=== PATIENT | female | born 1980 | race Caucasian/White ===

== ENCOUNTER → 2017-07-10 14:00 | Outpatient (POV) | payer MEDICARE, MEDICAID, SELFPAY | PROVIDERS: Visit Provider Dermatology | DX: Z00.00 Encounter for general adult medical examination without abnormal findings (principal) ==

== ENCOUNTER → 2017-10-09 13:07 | Outpatient (POV) | payer MEDICARE, MEDICAID, SELFPAY | PROVIDERS: Visit Provider Dermatology | DX: Z00.00 Encounter for general adult medical examination without abnormal findings (principal) ==

== ENCOUNTER → 2018-01-08 11:02 | Outpatient (POV) | payer MEDICARE, MEDICAID, SELFPAY | PROVIDERS: Visit Provider Dermatology | DX: Z00.00 Encounter for general adult medical examination without abnormal findings (principal) ==

== ENCOUNTER → 2018-04-14 10:19 | Outpatient (POV) | payer MEDICARE, MEDICAID, SELFPAY | PROVIDERS: Visit Provider Dermatology | DX: Z00.00 Encounter for general adult medical examination without abnormal findings (principal) ==

== ENCOUNTER → 2022-01-15 07:00 | Outpatient (CLI) | payer MEDICARE, MEDICAID, SELFPAY ==
[2022-01-14 18:08] LABS: Basophils % 0.4 % (0.1-2.0); Eosinophils # 0.2 K/mm3 (0.0-0.4); Hemoglobin 13.1 g/dL (12.2-16.2); Lymphocytes # 1.6 K/mm3 (0.7-4.5); Lymphocytes % 17.9 % (10-50); Mean Corpuscular Hemoglobin 25.8 pg (27.0-31.2); Mean Corpuscular Volume 80.6 fl (81-99); Mean Platelet Volume 9.3 fl (7.4-10.4); Monocytes # 0.4 K/mm3 (0.1-1.0); Monocytes % 4.5 % (1.7-9.3); Neutrophils # 6.7 K/mm3 (1.8-7.8); Platelet Count 308 K/mm3 (142-424); Red Blood Count 5.09 M/mm3 (4.20-5.40); Red Cell Distribution Width 14.3 % (11.5-17.5)
[2022-01-14 18:20] LABS: Alanine Aminotransferase 18 U/L (12-78); Albumin Level 3.4 g/dl (3.5-5.0); Albumin/Globulin Ratio 1.3 (1.1-1.8); Alkaline Phosphatase 122 U/L (38-126); Anion Gap 11.7 mEq/L (5-15); Aspartate Amino Transferase 21 U/L (14-36); Bilirubin,Total 0.8 mg/dl (0.2-1.3); Blood Urea Nitrogen 10 mg/dl (7-17); Calcium 8.4 mg/dl (8.4-10.2); Carbon Dioxide 28 mmol/L (22.0-30.0); Chloride 103 mmol/L (98-107); Chol/HDL Ratio 3.4 (1-3.5); Cholesterol 152 mg/dl (140-200); Estimated Glomerular Filt Rate 79 ml/min (>60); GFR (African American) 96 ML/MIN (>60); Globulin 2.7 g/dL (1.3-3.2); Glucose 138 mg/dl (74-100); HDL Cholesterol 45 mg/dl (40-60); Potassium 4.7 mmoL/L (3.5-5.1); Sodium 138 mmol/L (136-145); Total Protein,Serum 6.1 g/dl (6.3-8.2); Triglycerides 101 mg/dl (30-150); VLDL Cholesterol 20 mg/dL (0-40)
[2022-01-14 18:31] LABS: Direct LDL Cholesterol 84.97 mg/dL (100-129)
[2022-01-14 18:51] LABS: Thyroid Stimulating Hormone 2.71 uIU/mL (0.465-4.68)
[2022-01-14 20:50] LABS: Iron 38 ug/dL (37-170)
== END ==
PROVIDERS: PCP Family Medicine; Visit Provider Family Medicine
DX: E03.9 Hypothyroidism, unspecified (principal); E11.9 Type 2 diabetes mellitus without complications; E61.1 Iron deficiency; E78.5 Hyperlipidemia, unspecified; Z79.84 Long term (current) use of oral hypoglycemic drugs
CPT/HCPCS: 80053; 80061; 83036; 83540; 84443; 85025

== ENCOUNTER → 2022-04-08 13:51 | Outpatient (CLI) | payer MEDICARE, MEDICAID, SELFPAY ==
[2022-04-08 13:12] LABS: INR 0.95 (0.9-1.1); Prothrombin Time 10.3 seconds (10.1-12.5)
== END ==
PROVIDERS: PCP Family Medicine; Visit Provider Family Medicine
DX: Z86.711 Personal history of pulmonary embolism (principal); Z51.81 Encounter for therapeutic drug level monitoring; Z79.01 Long term (current) use of anticoagulants
CPT/HCPCS: 85610

== ENCOUNTER → 2022-10-01 16:40 | Outpatient (CLI) | payer MEDICARE, MEDICAID, SELFPAY ==
[2022-10-01 19:46] LABS: Chloride 101 mmol/L (98-107); Potassium 4.6 mmoL/L (3.5-5.1); Sodium 135 mmol/L (136-145)
[2022-10-01 19:49] LABS: Alanine Aminotransferase 18 U/L (12-78); Albumin Level 3.7 g/dl (3.5-5.0); Albumin/Globulin Ratio 1.4 (1.1-1.8); Alkaline Phosphatase 131 U/L (38-126); Anion Gap 11.6 mEq/L (5-15); Aspartate Amino Transferase 20 U/L (14-36); Bilirubin,Total 1.1 mg/dl (0.2-1.3); Blood Urea Nitrogen 14 mg/dl (7-17); Calcium 8.1 mg/dl (8.4-10.2); Carbon Dioxide 27 mmol/L (22.0-30.0); Estimated Glomerular Filt Rate 61 ml/min (>60); GFR (African American) 74 ML/MIN (>60); Globulin 2.7 g/dL (1.3-3.2); Glucose 119 mg/dl (74-100); Total Protein,Serum 6.4 g/dl (6.3-8.2)
== END ==
PROVIDERS: PCP Family Medicine; Visit Provider Family Medicine
DX: E11.9 Type 2 diabetes mellitus without complications (principal); Z79.84 Long term (current) use of oral hypoglycemic drugs
CPT/HCPCS: 80053

== ENCOUNTER 2023-08-15 22:00 | Outpatient (CLI) | payer MEDICARE, MEDICAID, SELFPAY ==
[2023-08-15 20:41] LABS: Amphetamine/Metha Screen,Urine Negative ng/ml (<1000)
[2023-08-15 20:42] LABS: Barbiturates Screen,Urine Negative ng/ml (<200)
[2023-08-15 20:43] LABS: Benzodiazepines Screen,Urine Negative ng/ml (<200)
[2023-08-15 20:44] LABS: Cocaine Screen,Urine Negative ng/ml (<300)
[2023-08-15 20:45] LABS: Methadone Screen,Urine Negative ng/ml (<300); Opiate Screen,Urine Positive ng/ml (<300)
[2023-08-15 20:50] LABS: Cannabinoid Screen,Urine Negative ng/ml (<50)
[2023-08-15 22:12] LABS: Phencyclidine Screen,Urine Negative ng/ml (<25)
== END 2023-08-15 23:59 ==
LOC: LAB.DROPOF 22:00
PROVIDERS: PCP Family Medicine; Visit Provider Family Medicine
DX: Z79.899 Other long term (current) drug therapy (principal); R30.0 Dysuria; B96.1 Klebsiella pneumoniae [K. pneumoniae] as the cause of diseases classified elsewhere
CPT/HCPCS: 80307; 87086

== ENCOUNTER 2024-11-19 15:02 | Outpatient (CLI) | payer MEDICARE, MEDICAID, SELFPAY ==
[2024-11-19 18:23] LABS: Basophils % 0.5 % (0.1-2.0); Eosinophils # 0.2 Kmm3 (0.0-0.4); Eosinophils % 2.3 % (0.1-12.0); Hematocrit 33.7 % (37.0-47.0); Hemoglobin 9.8 g/dL (12.2-16.2); Immature Granulocytes # 0.04 10^3uL; Immature Granulocytes % 0.5 %; Lymphocytes # 0.8 K/mm3 (0.7-4.5); Lymphocytes % 9.9 % (10-50); Mean Corpuscular HGB Conc 29.1 g/dL (31.8-35.4); Mean Corpuscular Hemoglobin 21.4 pg (27.0-31.2); Mean Corpuscular Volume 73.4 fl (81-99); Mean Platelet Volume 10.8 fl (7.4-10.4); Monocytes # 0.3 K/mm3 (0.1-1.0); Monocytes % 4.1 % (1.7-9.3); Neutrophils # 6.5 K/mm3 (1.8-7.8); Neutrophils % 82.7 % (37.0-80.0); Nucleated Red Blood Cells # 0 10^3/uL; Nucleated Red Blood Cells % 0 %; Platelet Count 311 K/mm3 (142-424); Red Blood Count 4.59 M/mm3 (4.20-5.40); Red Cell Distribution Width 19.8 % (11.5-17.5); Red Cell Distribution Width-SD 51.5 fL; White Blood Count 7.8 K/mm3 (4.8-10.8)
[2024-11-19 18:27] LABS: INR 1.66 (0.9-1.1); Prothrombin Time 17.7 seconds (10.1-12.5)
[2024-11-19 19:11] LABS: Alanine Aminotransferase 16 U/L (12-78); Albumin Level 3.3 g/dl (3.5-5.0); Albumin/Globulin Ratio 1.1 (1.1-1.8); Alkaline Phosphatase 159 U/L (38-126); Anion Gap 7.9 mEq/L (5-15); Aspartate Amino Transferase 18 U/L (14-36); Bilirubin,Total 0.7 mg/dl (0.2-1.3); Blood Urea Nitrogen 14 mg/dl (7-17); Calcium 7.8 mg/dl (8.4-10.2); Carbon Dioxide 28 mmol/L (22.0-30.0); Chloride 102 mmol/L (98-107); Chol/HDL Ratio 2.8 (1-3.5); Cholesterol 135 mg/dl (140-200); Estimated Glomerular Filt Rate 61 ml/min (>60); GFR (African American) 73 ML/MIN (>60); Glucose 193 mg/dl (74-100); HDL Cholesterol 49 mg/dl (40-60); Potassium 4.9 mmoL/L (3.5-5.1); Sodium 133 mmol/L (136-145); Total Protein,Serum 6.3 g/dl (6.3-8.2); Triglycerides 101 mg/dl (30-150); VLDL Cholesterol 20 mg/dL (0-40)
[2024-11-19 19:22] LABS: Direct LDL Cholesterol 66.93 mg/dL (100-129)
[2024-11-19 19:42] LABS: Thyroid Stimulating Hormone 2.68 uIU/mL (0.465-4.68)
== END 2024-11-19 23:59 | disposition home or self-care (01) ==
LOC: LAB.DROPOF 11-22 15:05
PROVIDERS: PCP Family Medicine; Visit Provider Family Medicine
DX: E03.9 Hypothyroidism, unspecified (principal); E66.01 Morbid (severe) obesity due to excess calories; D68.51 Activated protein C resistance; G25.81 Restless legs syndrome; Z68.45 Body mass index [BMI] 70 or greater, adult
CPT/HCPCS: 80053; 80061; 84443; 85025; 85610

== ENCOUNTER 2025-03-16 10:10 | Outpatient (CLI) | payer MEDICARE, MEDICAID, SELFPAY ==
--- OUTSIDE RECORDS SUMMARY | 2025-01-13 07:02 | XMS_ITS | Encounter Summary ---
Author Organization [place] [address] Care Team Providers Care [employer] Coater Name Role Phone Tali Carmona MD Unavailable [phone] Miguel Angel Ohara MD Primary Care Provider [phone] Reason for Visit * Reason Comments Shortness of Breath Short of breath, fee ls like she can't take a deep breath. Started at about 1am. Hx blood clots. 99% RA * Auth/Cert/Inpt Specialty Diagnoses / Procedures Referred By Contac t Referred To Contact Diagnoses Pneumonia of right lower lobe due to infectious organism Referral ID Status Reason Start Date Expiration Date Visits Re quested Visits Authorized [id number] 1 1 Encounter Details Date Type Department Care Team (Latest Contact Info) Description 01/13/2025 7:02 AM EDT - 01/20/2025 4:00 PM EDT Hospital Encounter [facility] [address] [address] [place] [address] Olvin Yarbrough MD [address] [place] [address] Harriet Godinez MD [address] [place] [address] Pneumonia of right lower lobe due to infectious organism (Primary Dx); Abdominal wall cellulitis; Shortness of breath; Elevated troponin Discharge Disposition: Rehab Facility Social History Tobacco Use Types Packs/Day Years Used Date Smoking Tobacco: Never Smokeless Tobacco: Never Alcohol Use Standard Drinks/Week Comments Never 0 (1 standard drink = 0.6 oz pur e alcohol) [facility] Utilities Answer Date Recorded In the past 12 months has th e electric, gas, oil, or water company threatened to shut off services in your home? No 01/14/2025 AUDIT-C Answer Date Recorded Q1: How often do you have a drink containing alc ohol? Never 12/05/2020 Average Number of Drinks Not on file 021 Frequency of Binge Drinking Not on file 07/2020 Overall Financial Resource Strain (CARDIA) Answe r Date Recorded How hard is it for you to pa y for the very basics like food, housing, medical care, and heating? Somewhat hard 01/14/2025 PHQ-2 Answer Date Recorded PHQ-2 Total Score 2 01/14/2025 [facility] - Occupational Stress Questionnaire Answer Date Recorded Do you feel stress - tense, restless, nervous, or anxious, or unable to sleep at night because your mind is troubled all the time - these days? Only a little 01/14/2025 Exercise Vital Sign Answer Date Recorde d On average, how many days pe r week do you engage in moderate to strenuous exercise (like a brisk walk)? 0 days 01/14/2025 On average, how many minutes do you engage in exercise at this level? 0 min 01/14/2025 Hunger Vital Sign Answer Date Recorded Within the past 12 months, y ou worried that your food would run out before you got the money to buy more. Sometimes true Within the past 12 months, t he food you bought just didn't last and you didn't have money to get more. Never true 05/2025 [facility] IP Transportation Answer D ate Recorded In the past 12 months, has l ack of reliable transportation kept you from medical appointments, meetings, work or from getting things needed for daily living? No 01/14/2025 Comments No Sex and Gender Information Value Date Recorded Sex Assigned at Not on file Legal Sex Female 6:56 AM EDT Gender Identity Not on file Sexual Orientation Not on file documented as of this encounter Last Filed Vital Signs Vital Sign Reading Time Taken Comments Blood Pressure 143/70 01/20/2025 8:43 AM EDT Pulse 71 01/20/2025 8:43 AM EDT Temperature 36.7 C (98.1 F) 01/20/2025 8:43 AM EDT Respiratory Rate 16 01/20/2025 8:43 AM EDT Oxygen Saturation 96% 01/20/2025 8:43 AM EDT Inhaled Oxygen Concentration - - Weight 231.8 kg (511 lb) 01/13/2025 7:03 AM EDT Height 167.6 cm (5' 6 ) 01/13/2025 7:03 AM EDT Body Mass Index 82.48 01/13/2025 7:03 AM EDT documented in this encounter Functional Status * Alcohol Screening Score Answer Date of Assessment Author 0 01/13/2025 3:00 PM EDT Lesly Ovalle RN * Drug Screening Score Answer Date of Assessment Author 0 01/13/2025 3:00 PM EDT Lesly Ovalle RN * Question Answer Date of Assessment Author How often do you have a drin k containing alcohol? 0 01/13/2025 3:00 PM EDT Jimmie Chambers RN How many drinks containing alcohol do you have on a typical day when you are drinking? 0 01/13/2025 3:00 PM EDT Jimmie Chambers RN How often do you have six or more drinks on one occasion? 0 01/13/2025 3:00 PM EDT Lesly Anand RN AUDIT-C to Determine Rows 4-10 0 01/13/2025 3:00 PM EDT Lesly Chambers RN * Is the person deaf or does he/she have serious difficulty hearing? Answer Date of Assessment Author No 01/06/2025 12:07 PM EDT Elysia Stacy RN * Is the person blind or does he/she have serious difficulty seeing even when wearing glasses? Answer Date of Assessment Author No 01/06/2025 12:07 PM EDT Elysia Stacy RN * Does this person have serious difficulty walking or climbing stairs? Answer Date of Assessment Author Yes 01/06/2025 12:07 PM EDT Elysia Stacy RN * Does this person have difficulty dressing or bathing? Answer Date of Assessment Author Yes 01/06/2025 12:07 PM Elysia Nelson RN * Because of a physical, mental or emotional condition, does this person have difficulty doing errands alone such as visiting a doctor's office or shopping? Answer Date of Assessment Author Yes 01/06/2025 12:07 PM Elysia Nelson RN * Question Answer Date of Assessment Author Little interest or pleasure in doing things 1 01/14/2025 3:17 PM EDT Virginia Jackson, W Feeling down, depressed, or hopeless 1 01/04 3:17 PM EDT Virginia Jackson, ACID LEVELER PHQ-2 Total Score 2 01/14/2025 3:17 PM EDT Virginia Jackson, ACID LEVELER * PHQ-9 Total Score Answer Date of Assessment Author 2 01/14/2025 3:17 PM EDT Criss Jackson, ACID LEVELER * PHQ-2 Total Score Answer Date of Assessment Author 2 01/14/2025 3:17 PM EDT Criss Jackson, ACID LEVELER * Suicide Severity Rating Answer Date of Assessment Author No Risk 01/13/2025 7:04 AM Verna Lu RN * [place] Suicide Severity Rating Scale (Q shift for moderate and high) Question Answer Date of Assessment Author 1. In the past month, have you wished you were or wished you could go to sleep and not wake up? 0 01/13/2025 7:04 AM Verna Helms RN 2. In the past month, have you actually had any thoughts of killing yourself? (If no, skip to question 6) 0 01/13/2025 7:04 AM Deborah Helms RN 6. Have you ever done anything, started to do anything, or prepared to do anything to end your life? 0 01/13/2025 7:04 AM Verna Reaves RN documented as of this encounter Mental Status * Because of a physical, mental or emotional condition, does this person have serious difficulty concentrating, remembering or making decisions? Answer Entry Date Author No 01/06/2025 12:07 PM Elysia Nelson RN documented in this encounter Discharge Summaries * Harriet Godinez MD - 01/20/2025 4:00 PM EDT [facility] Hospital[facility] Discharge Summary Patient Name: Evangelist Nettles : 1980 Admit Date: 01/13/2025 Discharge Date: 01/20/2025 Admitting Physician: Harriet Godinez MD Discharging Physician: Harriet Godinez MD Reason for Hospitalization: GRAZYNA (acute kidney injury). Likely due to vancomycin toxicity. Creatinine is improving *Pneumonia of right lower lobe due to infectious organism Mood disorder Chronic back pain Cellulitis of abdominal wall. Improving. Patient picks her skin constantly. Factor V Leiden Class 3 severe obesity with body mass index (BMI) greater than or equal to 70 in adult Anemia of chronic disease Type 2 diabetes mellitus, without long-term current use of insulin (HCC) Hypertension Hypothyroidism Brief Hospital Summary: Patient was admitted with right lower lobe pneumonia and cellulitis of the abdominal wall. She was treated with broad-spectrum antibiotics including vancomycin, cefepime and doxycycline. Her pneumonia symptoms did improve. Her cellulitis eventually resolved. Patient developed mild GRAZYNA has resolved on vancomycin. Her vancomycin was eventually changed to doxycycline and Augmentin. Renal function improved with gentle IV hydration. Patient was seen by physical therapy, SNF was recommended. She was reevaluated today was found medically stable for discharge. It is advised that she hold her metformin for 2-3 more days from the day of discharge. Discharge Exam: Vitals: 01/20/25 0843 BP: 143/70 Pulse: 71 Resp: 16 Temp: 98.1 ??F (36.7 ??C) SpO2: 96% Patient not in acute distress. Neck supple, no JVD. Lungs CTA. Heart regular S1, S2 are normal. No murmur. Abd soft, NT, ND, bowel sounds are present. Ext nonpitting edema of the lower extremities. Neuro AAO X3. No focal deficits. Correct Full Discharge Med List: Medication List START taking these medications amoxicillin-clavulanate 875-125 mg Tab Dose: 875 mg Refills: 0 Commonly known as: AUGMENTIN 1 Tablet, Oral, EVERY 12 HOURS SCHEDULED doxycycline hyclate 100 mg Tab Dose: 100 mg Refills: 0 Commonly known as: VIBRA-TABS 100 mg, Oral, EVERY 12 HOURS SCHEDULED CHANGE how you take these medications metFORMIN 500 mg Tab Dose: 500 mg Refills: 0 Start: January 23, 2025 Commonly known as: GLUCOPHAGE 500 mg, Oral, 2 TIMES DAILY WITH MEALS What changed: These instructions start on January 23, 2025. If you are unsure what to do until then, ask your doctor or other care provider. Notes to patient: Start January 23 CONTINUE taking these medications albuterol 90 mcg/actuation Hfaa Dose: 2 Puff Refills: 0 Commonly known as: PROVENTIL HFA;VENTOLIN HFA atorvastatin 40 mg Tab Dose: 40 mg Refills: 0 Commonly known as: LIPITOR famotidine 20 mg Tab Dose: 40 mg Refills: 0 Commonly known as: PEPCID FLUoxetine 20 mg Cap Dose: 60 mg Refills: 0 Commonly known as: PROzac folic acid 1 mg Tab Dose: 1 mg Qty: 30 Tablet Refills: 0 Commonly known as: FOLVITE 1 mg, Oral, DAILY glipiZIDE 5 mg Tab Dose: 5 mg Qty: 30 Tablet Refills: 0 Commonly known as: GLUCOTROL 5 mg, Oral, DAILY WITH MEAL LEVOthyroxine 50 mcg Tab Dose: 75 mcg Refills: 0 Commonly known as: SYNTHROID mirabegron 50 mg Tb24 Dose: 50 mg Refills: 0 Commonly known as: MYRBETRIQ oxyCODONE 15 mg Tr12 Dose: 15 mg Refills: 0 Commonly known as: OxyCONTIN propranoloL 20 mg Tab Dose: 20 mg Refills: 0 Commonly known as: INDERAL QUEtiapine 100 mg Tab Dose: 100 mg Refills: 0 Commonly known as: SEROquel rOPINIRole 2 mg Tab Dose: 2 mg Refills: 0 Commonly known as: REQUIP tiZANidine 4 mg Tab Dose: 8 mg Refills: 0 Commonly known as: ZANAFLEX torsemide 20 mg Tab Dose: 20 mg Refills: 0 Commonly known as: DEMADEX traMADoL 50 mg Tab Dose: 50-100 mg Refills: 0 Commonly known as: ULTRAM warfarin 5 mg Tab Dose: 5-7.5 mg Refills: 0 Commonly known as: COUMADIN STOP taking these medications amLODIPine 5 mg Tab Commonly known as: NORVASC nystatin Crea Commonly known as: MYCOSTATIN Where to Get Your Medications Information about where to get these medications is not yet available Ask your nurse or doctor about these medications amoxicillin-clavulanate 875-125 mg Tab doxycycline hyclate 100 mg Tab metFORMIN 500 mg Tab Condition at Discharge: stable Disposition: Rehab - [facility] Follow[facility]up: [facility] [address] [place] [address] Time spent > 30 min Harriet Godinez MD 01/20/2025 documented in this encounter Discharge Instructions * Discharge Instructions* Christel Arambula RN - 01/20/2025 12:49 PM EDT Patient Education Doxycycline (tom reina) Brand Names: US Acticlate [DSC]; Avidoxy; Doryx; Doryx MPC; Doxy 100; Lymepak [DSC]; Mondoxyne NL; Morgidox [DSC]; Oracea; TargaDOX; Vibramycin [DSC] Brand Names: Frank APO-Doxy; APO-Doxycycline MR; Apprilon; Doxycin; Doxytab; JAMP-Doxycycline; M-Doxycycline; PMS-Doxycycline; BIANKA-Doxycycline; TEVA-Doxycycline What is this drug used for? It is used to treat pimples (acne). It is used to treat or prevent bacterial infections. It is used to prevent malaria. It is used to treat swelling of the tissue around the teeth (periodontitis). It is used with scaling and root planing. It is used to treat rosacea. It may be given to you for other reasons. Talk with the doctor. What do I need to tell my doctor BEFORE I take this drug? If you are allergic to this drug; any part of this drug; or any other drugs, foods, or substances. Tell your doctor about the allergy and what signs you had. If you are taking any of these drugs: Acitretin, isotretinoin, or a penicillin. If you are breast-feeding or plan to breast-feed. You may need to avoid breast-feeding. This is not a list of all drugs or health problems that interact with this drug. Tell your doctor and pharmacist about all of your drugs (prescription or OTC, natural products, vitamins) and health problems. You must check to make sure that it is safe for you to take this drug with all of your drugs and health problems. Do not start, stop, or change the dose of any drug withoutchecking with your doctor. What are some things I need to know or do while I take this drug? Tell all of your health care providers that you take this drug. This includes your doctors, nurses,pharmacists, and dentists. Have your blood work checked if you are on this drug for a long time. Talk with your doctor. This drug may affect certain lab tests. Tell all of your health care providers and lab workers thatyou take this drug. Do not use longer than you have been told. A second infection may happen. If you are allergic to sulfites, talk with your doctor. Some products have sulfites. This drug may make you sunburn more easily. Use care if you will be in the sun. Tell your doctor ifyou sunburn easily while taking this drug. control pills and other hormone-based control may not work as well to prevent . Use some other kind of control also like a condom when taking this drug. This drug may change tooth color to yellow-villafana brown if taken by children younger than 8 years old, or in the unborn baby if taken during some parts of . If this change of tooth color happens, it will not go away. Other tooth problems have also happened. Bone growth may also be affected in these people taking this drug. If you have questions, talk with the doctor. Most of the time, this drug is not for use in children younger than 8 years old. However, there maybe times when these children may need to take this drug. Talk with the doctor. Change in tooth color has also happened in adults. This has gone back to normal after this drug wasstopped and teeth cleaning at a dentist's office. Talk with the doctor. This drug may cause harm to the unborn baby if you take it while you are . If you are or you get while taking this drug, call your doctor right away. What are some side effects that I need to call my doctor about right away? WARNING/CAUTION: Even though it may be rare, some people may have very bad and sometimes deadly side effects when taking a drug. Tell your doctor or get medical help right away if you have any of thefollowing signs or symptoms that may be related to a very bad side effect: Signs of an allergic reaction, like rash; hives; itching; red, swollen, blistered, or peeling skin with or without fever; wheezing; tightness in the chest or throat; trouble breathing, swallowing, ortalking; unusual hoarseness; or swelling of the mouth, face, lips, tongue, or throat. Signs of liver problems like dark urine, tiredness, decreased appetite, upset stomach or stomach pain, light-colored stools, throwing up, or yellow skin or eyes. Signs of a pancreas problem (pancreatitis) like very bad stomach pain, very bad back pain, or very bad upset stomach or throwing up. Chest pain or pressure or a fast heartbeat. Not able to pass urine or change in how much urine is passed. Fever, chills, or sore throat; any unexplained bruising or bleeding; or feeling very tired or weak. Throat irritation. Trouble swallowing. Mood changes. Muscle or joint pain. Fast breathing. Flushing. Severe dizziness or passing out. Change in skin color. Vaginal itching or discharge. Diarrhea is common with antibiotics. Rarely, a severe form called C diff- associated diarrhea (CDAD)may happen. Sometimes, this has led to a deadly bowel problem. CDAD may happen during or a few months after taking antibiotics. Call your doctor right away if you have stomach pain, cramps, or very loose, watery, or bloody stools. Check with your doctor before treating diarrhea. Raised pressure in the brain has happened with this drug. Most of the time, this will go back to normal after this drug is stopped. Sometimes, loss of eyesight may happen and may not go away even after this drug is stopped. Call your doctor right away if you have a headache or eyesight problems like blurred eyesight, seeing double, or loss of eyesight. Severe skin reactions may happen with this drug. These include Mcmillan-Mario syndrome (SJS), toxic epidermal necrolysis (TEN), and other serious reactions. Sometimes, body organs may also be affected. These reactions can be deadly. Get medical help right away if you have signs like red, swollen, blistered, or peeling skin; red or irritated eyes; sores in your mouth, throat, nose, eyes, genitals, or any areas of skin; fever; chills; body aches; shortness of breath; or swollen glands. What are some other side effects of this drug? All drugs may cause side effects. However, many people have no side effects or only have minor sideeffects. Call your doctor or get medical help if any of these side effects or any other side effects bother you or do not go away: Diarrhea, upset stomach, or throwing up. Decreased appetite. These are not all of the side effects that may occur. If you have questions about side effects, call your doctor. Call your doctor for medical advice about side effects. You may report side effects to your national health agency. You may report side effects to the FDA at . You may also report side effects at https://www.fda.gov/medwatch. How is this drug best taken? Use this drug as ordered by your doctor. Read all information given to you. Follow all instructionsclosely. All oral products: Keep taking this drug as you have been told by your doctor or other health care provider, even if you feel well. Some drugs may need to be taken with food or on an empty stomach. For some drugs it does not matter. Check with your pharmacist about how to take this drug. It is best to avoid taking this drug at the same time as milk, dairy, or other products with calcium. This drug may not work as well. If you have questions, talk with the doctor or pharmacist. Drink lots of noncaffeine liquids unless told to drink less liquid by your doctor. Do not take bismuth (Pepto-Bismol??), calcium, iron, magnesium, zinc, multivitamins with minerals, colestipol, cholestyramine, didanosine, or antacids within 2 hours of this drug. Tablets and capsules: Take with a full glass of water. Do not lie down after taking this drug. This will help lower the chance of throat irritation. Ask your pharmacist how long before you can lie down after taking this drug. Delayed-release tablets: Swallow whole. Do not chew or crush. The tablet may be broken if the doctor tells you to. You may sprinkle contents of tablet on applesauce. Be careful to break the tablet without crushing the pellets. Do not chew, crush, or damage the contents of the tablet. Do not mix with hot applesauce. If mixed, swallow the mixed drug right away. Do not store for use at a later time. All liquid products: Measure liquid doses carefully. Use the measuring device that comes with this drug. If there is none, ask the pharmacist for a device to measure this drug. Liquid (suspension): Shake well before use. Injection: It is given as an infusion into a vein over a period of time. What do I do if I miss a dose? All oral products: Take a missed dose as soon as you think about it. If it is close to the time for your next dose, skip the missed dose and go back to your normal time. Do not take 2 doses at the same time or extra doses. Injection: Call your doctor to find out what to do. How do I store and/or throw out this drug? All oral products: Store at room temperature protected from light. Store in a dry place. Do not store in a bathroom. Do not take this drug if it is outdated. Do not take this drug if it has not been stored as you have been told. Liquid (syrup): Throw away any unused part of this drug. Liquid (suspension): Store liquid (suspension) at room temperature. Throw away any part not used after 2 weeks. Injection: If you need to store this drug at home, talk with your doctor, nurse, or pharmacist about how to store it. All products: Keep all drugs in a safe place. Keep all drugs out of the reach of children and pets. Throw away unused or drugs. Do not flush down a toilet or pour down a drain unless you are told to do so. Check with your pharmacist if you have questions about the best way to throw out drugs. There may be drug take-back programs in your area. General drug facts If your symptoms or health problems do not get better or if they become worse, call your doctor. Do not share your drugs with others and do not take anyone else's drugs. Some drugs may have another patient information leaflet. If you have any questions about this drug,please talk with your doctor, nurse, pharmacist, or other health care provider. Some drugs may have another patient information leaflet. Check with your pharmacist. If you have any questions about this drug, please talk with your doctor, nurse, pharmacist, or other health care provider. If you think there has been an overdose, call your poison control center or get medical care right away. Be ready to tell or show what was taken, how much, and when it happened. Consumer Information Use and Disclaimer This generalized information is a limited summary of diagnosis, treatment, and/or medication information. It is not meant to be comprehensive and should be used as a tool to help the user understand and/or assess potential diagnostic and treatment options. It does NOT include all information about conditions, treatments, medications, side effects, or risks that may apply to a specific patient. Itis not intended to be medical advice or a substitute for the medical advice, diagnosis, or treatment of a health care provider based on the health care provider's examination and assessment of a patient's specific and unique circumstances. Patients must speak with a health care provider for complete information about their health, medical questions, and treatment options, including any risks or benefits regarding use of medications. This information does not endorse any treatments or medications as safe, effective, or approved for treating a specific patient. [employer] and its affiliatesdisclaim any warranty or liability relating to this information or the use thereof. The use of thisinformation is governed by the Terms of Use, available at https://www.[employer].com/en/know/hlhakpnu-kbqanjqjnideb-xjllu. Last Reviewed Date 2024-10-26 Copyright ?? 2024 [employer] and its affiliates and/or licensors. All rights reserved.Patient Education Amoxicillin and Clavulanate (a moks i ROSANNE in & klav brock DANELLE ate) Brand Names: US Augmentin; Augmentin ES-600 Brand Names: Frank AG-Amoxi Clav; Amoxicillin/Clav; APO-Amoxi Clav; AURO- Amoxiclav; Clavulin; Clavulin-125F; Clavulin-250F; Clavulin-500F [DSC]; JAMP- Amoxi Clav; M-Amoxi Clav; PRO-Amoxi Clav; SANDOZAmoxi-Clav What is this drug used for? It is used to treat bacterial infections. What do I need to tell my doctor BEFORE I take this drug? If you are allergic to this drug; any part of this drug; or any other drugs, foods, or substances. Tell your doctor about the allergy and what signs you had. If you are allergic to penicillin. If you have kidney disease. If you have turned yellow or had liver side effects with this drug before. If you have mono. If you are taking probenecid. This is not a list of all drugs or health problems that interact with this drug. Tell your doctor and pharmacist about all of your drugs (prescription or OTC, natural products, vitamins) and health problems. You must check to make sure that it is safe for you to take this drug with all of your drugs and health problems. Do not start, stop, or change the dose of any drug withoutchecking with your doctor. What are some things I need to know or do while I take this drug? Tell all of your health care providers that you take this drug. This includes your doctors, nurses,pharmacists, and dentists. Have your blood work checked if you are on this drug for a long time. Talk with your doctor. This drug may affect certain lab tests. Tell all of your health care providers and lab workers thatyou take this drug. If you have high blood sugar (diabetes) and test your urine glucose, talk with your doctor to find out which tests are best to use. If you have phenylketonuria (PKU), talk with your doctor. Some products have phenylalanine. Do not use longer than you have been told. A second infection may happen. Change in tooth color to [id number] has happened with this drug. Most reports happened in children. Most of the time, the color change got less or went away with brushing or dental cleaning. If a change of tooth color happens, talk with the doctor. control pills and other hormone-based control may not work as well to prevent . Use some other kind of control also like a condom when taking this drug. Tell your doctor if you are , plan on getting , or are breast- feeding. You will need to talk about the benefits and risks to you and the baby. What are some side effects that I need to call my doctor about right away? WARNING/CAUTION: Even though it may be rare, some people may have very bad and sometimes deadly side effects when taking a drug. Tell your doctor or get medical help right away if you have any of thefollowing signs or symptoms that may be related to a very bad side effect: Signs of an allergic reaction, like rash; hives; itching; red, swollen, blistered, or peeling skin with or without fever; wheezing; tightness in the chest or throat; trouble breathing, swallowing, ortalking; unusual hoarseness; or swelling of the mouth, face, lips, tongue, or throat. Rarely, some allergic reactions have been deadly. Signs of a type of allergic reaction called drug-induced enterocolitis syndrome, like vomiting within 1 to 4 hours after taking this drug, diarrhea within 24 hours after taking this drug, pale or villafana skin, feeling tired or unwell, or signs of low blood pressure like severe dizziness or passing out. Vaginal irritation or discharge. Fever or chills. Any unexplained bruising or bleeding. Diarrhea is common with antibiotics. Rarely, a severe form called C diff- associated diarrhea (CDAD)may happen. Sometimes, this has led to a deadly bowel problem. CDAD may happen during or a few months after taking antibiotics. Call your doctor right away if you have stomach pain, cramps, or very loose, watery, or bloody stools. Check with your doctor before treating diarrhea. Liver problems have happened with this drug. Rarely, this has been deadly. Call your doctor right away if you have signs of liver problems like dark urine, tiredness, decreased appetite, upset stomach or stomach pain, light-colored stools, throwing up, or yellow skin or eyes. Severe skin reactions may happen with this drug. These include Mcmillan-Mario syndrome (SJS), toxic epidermal necrolysis (TEN), and other serious reactions. Sometimes, body organs may also be affected. These reactions can be deadly. Get medical help right away if you have signs like red, swollen, blistered, or peeling skin; red or irritated eyes; sores in your mouth, throat, nose, eyes, genitals, or any areas of skin; fever; chills; body aches; shortness of breath; or swollen glands. What are some other side effects of this drug? All drugs may cause side effects. However, many people have no side effects or only have minor sideeffects. Call your doctor or get medical help if any of these side effects or any other side effects bother you or do not go away: For all patients taking this drug: Diarrhea, upset stomach, or throwing up. Children: Diaper rash. These are not all of the side effects that may occur. If you have questions about side effects, call your doctor. Call your doctor for medical advice about side effects. You may report side effects to your national health agency. You may report side effects to the FDA at . You may also report side effects at https://www.fda.gov/medwatch. How is this drug best taken? Use this drug as ordered by your doctor. Read all information given to you. Follow all instructionsclosely. Extended-release tablets: Take tablet with food. Avoid taking this drug with high-fat meals. Swallow whole. Do not chew or crush. Some products may be broken in half. If you are not sure if you can break this product in half, talk with the doctor. Keep taking this drug as you have been told by your doctor or other health care provider, even if you feel well. All other products: Take this drug at the start of a meal to help it work the best and lower the chance of upset stomach. Keep taking this drug as you have been told by your doctor or other health care provider, even if you feel well. Chewable tablets: Chew well before swallowing. Liquid (suspension): Shake well before use. Measure liquid doses carefully. Use the measuring device that comes with this drug. If there is none, ask the pharmacist for a device to measure this drug. What do I do if I miss a dose? Take a missed dose as soon as you think about it. If it is close to the time for your next dose, skip the missed dose and go back to your normal time. Do not take 2 doses at the same time or extra doses. How do I store and/or throw out this drug? Liquid (suspension): Store liquid (suspension) in a refrigerator. Do not freeze. Throw away any part not used after 10 days. Some color change may be normal for certain products during storage. If you are not sure about this, talk with your pharmacist. All other products: Store at room temperature in a dry place. Do not store in a bathroom. All products: Keep all drugs in a safe place. Keep all drugs out of the reach of children and pets. Throw away unused or drugs. Do not flush down a toilet or pour down a drain unless you are told to do so. Check with your pharmacist if you have questions about the best way to throw out drugs. There may be drug take-back programs in your area. General drug facts If your symptoms or health problems do not get better or if they become worse, call your doctor. Do not share your drugs with others and do not take anyone else's drugs. Some drugs may have another patient information leaflet. If you have any questions about this drug,please talk with your doctor, nurse, pharmacist, or other health care provider. Some drugs may have another patient information leaflet. Check with your pharmacist. If you have any questions about this drug, please talk with your doctor, nurse, pharmacist, or other health care provider. If you think there has been an overdose, call your poison control center or get medical care right away. Be ready to tell or show what was taken, how much, and when it happened. Consumer Information Use and Disclaimer This generalized information is a limited summary of diagnosis, treatment, and/or medication information. It is not meant to be comprehensive and should be used as a tool to help the user understand and/or assess potential diagnostic and treatment options. It does NOT include all information about conditions, treatments, medications, side effects, or risks that may apply to a specific patient. Itis not intended to be medical advice or a substitute for the medical advice, diagnosis, or treatment of a health care provider based on the health care provider's examination and assessment of a patient's specific and unique circumstances. Patients must speak with a health care provider for complete information about their health, medical questions, and treatment options, including any risks or benefits regarding use of medications. This information does not endorse any treatments or medications as safe, effective, or approved for treating a specific patient. [employer] and its affiliatesdisclaim any warranty or liability relating to this information or the use thereof. The use of thisinformation is governed by the Terms of Use, available at https://www.wolterskluwer.com/en/know/mjnblyxb-gvzbbjlopygho-mcolt. Last Reviewed Date 2023-11-12 Copyright ?? 2024 [employer]. and its affiliates and/or licensors. All rights reserved. * Attachments The following attachments cannot be sent through Care Everywhere. * Pneumonia in adults ??? Discharge instructions (Romanian) documented in this encounter Medications at Time of Discharge albuterol (PROVENTIL HFA;VENTOLIN HFA) 90 mcg/actuation Inhl HFA Aerosol Inhaler Inhale 2 Puffs into the lungs as needed. 12/23/2024 atorvastatin (LIPITOR) 40 mg Oral Tablet Take 40 mg by mouth nightly. famotidine (PEPCID) 20 mg Oral Tablet Take 40 mg by mouth nightly. FLUoxetine (PROZAC) 20 mg Oral Capsule Take 60 mg by mouth nightly. folic acid (FOLVITE) 1 mg Oral Tablet Take 1 Tablet by mouth daily. 30 Tablet 04/18/2024 glipiZIDE (GLUCOTROL) 5 mg Oral Tablet Take 1 Tablet by mouth daily (with breakfast). 30 Tablet 04/18/2024 LEVOthyroxine (SYNTHROID) 50 mcg Oral Tablet Take 75 mcg by mouth daily. metFORMIN (GLUCOPHAGE) 500 mg Oral Tablet Take 1 Tablet by mouth 2 times daily (with meals). 01/23/2025 mirabegron (MYRBETRIQ) 50 mg Oral Tablet Sustained Release 24 hr Take 50 mg by mouth daily. propranoloL (INDERAL) 20 mg Oral Tablet Take 20 mg by mouth every 12 hours. QUEtiapine (SEROQUEL) 100 mg Oral Tablet Take 100 mg by mouth 2 times daily. rOPINIRole (REQUIP) 2 mg Oral Tablet Take 2 mg by mouth 3 times daily. tiZANidine (ZANAFLEX) 4 mg Oral Tablet Take 8 mg by mouth nightly. at bedtime 07/26/2022 traMADoL (ULTRAM) 50 mg Oral Tablet Take 50-100 mg by mouth 4 times daily. warfarin (COUMADIN) 5 mg Oral Tablet Take 5-7.5 mg by mouth daily. Takes 7.5 mg MWF and 5 mg on all other days. amoxicillin-clavu lanate (AUGMENTIN) 875-125 mg Oral Tablet Take 1 Tablet by mouth every 12 hours for 1 dose. 01/20/2025 01/21/2025 doxycycline hyclate (VIBRA-TABS) 100 mg Oral Tablet Take 1 Tablet by mouth every 12 hours for 1 dose. 01/20/2025 01/21/2025 oxyCODONE (OXYCONTIN) 15 mg Oral tablet,oral only,ext.rel.12 hr Take 30 mg by mouth every 12 hours. 02/18/2025 torsemide (DEMADEX) 20 mg Oral Tablet Take 20 mg by mouth daily. 12/23/2024 02/18/2025 documented as of this encounter Ordered Prescriptions Prescription Sig Dispense Quantity Refills Last Filled Start Date End Date metFORMIN (GLUCOPHAGE) 500 mg Oral Tablet Take 1 Tablet by mouth 2 times daily (with meals). 01/23/2025 doxycycline hyclate (VIBRA-TABS) 100 mg Oral Tablet Take 1 Tablet by mouth every 12 hours for 1 dose. 01/20/2025 01/21/2025 amoxicillin-clavul anate (AUGMENTIN) 875-125 mg Oral Tablet Take 1 Tablet by mouth every 12 hours for 1 dose. 01/20/2025 01/21/2025 documented in this encounter Discharge Disposition Disposition Code Departure Means Destination Comment s Rehab Facility [facility] documented in this encounter Progress Notes * Harriet Godinez MD - 01/20/2025 4:00 PM EDTAssociated Problem(s): GRAZYNA (acute kidney injury). Likely due to vancomycin toxicity. Creatinine is improving Continue to monitor renal function Hold metformin for 2-3 more days. * Christel Arambula RN - 01/20/2025 3:51 PM EDT Patient prepared for discharge to [facility]. Report given to [facility]. Belongings reviewed and all accounted for. Attempted to call report to [facility], no RN available to take report, call back number provided * Swapna Paul - 01/20/2025 3:32 PM EDT Images from the original note were not included. 01/20/25 1500 Reason for Visit Date of visit 01/20/25 Visited With Patient;Other (comment) (Declined visit - already seen today) Visited By Spiritual Care Volunteer (Jolie Ricketts) Reason for Visit Hospitality visit Patient Assessment Patient Mormon at Registration Denominational Childcare Worker, Pastoral and Spiritual Care For non-urgent requests, please place a Pastoral Care consult in [facility]. For all urgent matters, please send an urgent Epic Secure Chat to [facility] at your location. Between 11pm and 7am, please use On-Call Finder to send an Epic Secure Chat to the on-call geospatial program management officer. [facility] office phone numbers: EDG/COV/GRT [phone], MANNY [phone], FTT [phone], DBN [phone] * Lenard Manzo - 01/20/2025 1:42 PM EDT Images from the original note were not included. 01/20/25 1300 Reason for Visit Date of visit 01/20/25 [facility] Reason for Visit Sacramental needs Patient Assessment Patient Mormon at Registration Denominational Care Plan Plan for Follow-Up Childcare Worker(s) will continue to follow throughout admission Lenard Manzo Childcare Worker, Pastoral and Spiritual Care For non-urgent requests, please place a Pastoral Care consult in [facility]. For all urgent matters, please send an urgent Epic Secure Chat to the Pastoral Care group at your location. Between 11pm and 7am, please use On-Call Finder to send an Epic Secure Chat to the on-call geospatial program management officer. [facility] phone numbers: EDG/COV/GRT [phone], MANNY [phone], FTT [phone], DBN [phone] * Sasha Barakat OT - 01/20/2025 12:51 PM EDT 01/20/25 1159 OT Subjective Note Type Treatment/Progress Patient Room/Unit 3611 OT Subjective Comments #1 OT Precautions Precaution Info Given Yes;To use call light to request assistance with all mobility Other precautions REYES Cognition Orientation Intact Arousal Normal Safety Awareness Impairment Minimal Impairments: Needs up to 25% input/direction from therapist in order to identify safety issues and maintain safety. Additional comments pleasant and cooperative Pain Screening PT/OT Patient Currently in Pain Yes Pain Rating (not rated on pain scale) Pain Location Back;Leg Pain Orientation Lower;Left;Distal Pain Intervention(s) Repositioned;Ambulation/Increased activity Observation Presentation Patient seated in chair Observation IV;Telemetry Vitals moderate dysarthria Transfers Sit to Stand Contact guard assist;With verbal cues Stand to Sit Contact guard assistance;With verbal cues Stand Pivot Transfers Contact guard assist;With cues Additional Comments bariatric RW, verbal cues for safe hand placement Functional Transfers Toilet Transfers Contact guard assist (bariatic BSC) Gait Gait Contact guard assist Gait Distance (Feet) 20 Feet (20 x 2) Assistive Device 2 Wheel walker;Bariatric Pattern Slow olimpia;Step to;Flexed posture Balance Sitting Balance 3/5 sits without UE support up to 30 seconds Standing Balance 2+/5 indep, requires 1 UE support PT/OT Mobility Documentation PT/OT Mobility Score 6 ADL Interventions Toileting Total Interventions Balance Training static/dynamic standing wit UB support, CGA Transfer Training reviewed safety with focus on hand placement Education Education To use call light to request assistance with all mobility;Patient/Family Education;Safetywith mobility;Cues for proper technique;Up with assistance only;Safe and proper technique with trans fers;Pursed lip breathing;Energy conservation Patient Safety Patient left in chair with needs in reach Additional Comments reviewed energy conservation tech with focus on PLB Assessment Progress Progressing toward goals Rationale for Skilled Therapy Fall Risk;Balance Deficits;Not safe with independent transfers;Not safe ambulating independently;Needs physical cues for ADL's;Not independent with home exercise program Recommendation OT Recommendation Moderate frequency, moderate intensity five days a week therapy recommended. Time In / Time Out 11:59 to 12:22 IP OT Individual Treatment Minutes 23 The total time spent caring for this patient included but was not limited to medical record review;hands-on treatment;communication and education with patient and/or family/caregiver;assessment of the patient's progress since the last session;clinical judgement necessary for treatment planning for next session * Evangelist Kemp MSW - 01/20/2025 11:37 AM EDT 7/17 - [facility] can accept today any time after 3pm, ambulance scheduled for 330pm. Post-acute completed. [facility] updated. No additional needs. * Harriet Godinez MD - 01/20/2025 9:02 AM EDTAssociated Problem(s): Pneumonia of right lower lobe due to infectious organism Continue Augmentin 875 mg twice daily and doxycycline 100 mg twice daily * Harriet Godinez MD - 01/20/2025 9:02 AM EDTAssociated Problem(s): Factor V Leiden Patient is on Coumadin. Pharmacy is managing Labs reviewed. INR is 2.64 Discussed with pharmacy. * Harriet Godinez MD - 01/20/2025 9:02 AM EDTAssociated Problem(s): Hypothyroidism Continue Synthroid 50 mcg daily * Harriet Godinez MD - 01/20/2025 9:02 AM EDTAssociated Problem(s): Hypertension On Norvasc 5 mg daily * Harriet Godienz MD - 01/20/2025 9:02 AM EDTAssociated Problem(s): Type 2 diabetes mellitus, without long-term current use of insulin (HCC) Continue glipizide 5 mg daily. Continue insulin administration via insulin calculator Continue to hold metformin due to GRAYZNA * Harriet Godinez MD - 01/20/2025 9:02 AM EDTAssociated Problem(s): Class 3 severe obesity with body mass index (BMI) greater than or equal to 70 in adult Weight loss recommended as obesity complicates all aspects of care * Harriet Godinez MD - 01/20/2025 9:02 AM EDTAssociated Problem(s): Cellulitis of abdominal wall. Improving. Patient picks her skin constantly. Change vancomycin and cefepime to Augmentin and continue doxycycline 100 mg twice daily * Harriet Godinez MD - 01/20/2025 9:02 AM EDTAssociated Problem(s): Chronic back pain Patient is on oxycontin 15 mg every 12 hours On Zanaflex 8 mg at bedtime. * Harriet Godinez MD - 01/20/2025 9:02 AM EDTAssociated Problem(s): Mood disorder On Prozac 20 mg daily * Harriet Godinez MD - 01/20/2025 9:02 AM EDTAssociated Problem(s): Anemia of chronic disease Continue to monitor hemoglobin Ferrlecit 125 mg x 2 doses given. * Harriet Godinez MD - 01/20/2025 9:02 AM EDT Images from the original note were not included. Adult Progress Note Admit Date: 01/13/2025 LOS: 7 days HPI: Evangelist Daniels Shoaib is a(n)44 y.o. female admitted with Pneumonia of right lower lobe due to infectious organism [J18.9]. Subjective: Seen today, patient said feeling well today. She does not have any complaints No acute events reported by nursing Scheduled Meds: amLODIPine 5 mg Oral Daily amoxicillin-clavulanate 1 Tablet Oral 2 times per day atorvastatin 40 mg Oral Nightly doxycycline hyclate 100 mg Oral 2 times per day FLUoxetine 60 mg Oral Nightly glipiZIDE 5 mg Oral Daily WM Insulin Calculator (SEBD TEACHER) - FSBS (Correction Only) Input 1 Each MISCELLANEOUS QID WM And insulin aspart (NovoLOG) - Correction - Calculator 0-40 Units Subcutaneous QID WM LEVOthyroxine 75 mcg Oral DAILY EARLY AM miconazole Topical BID mirabegron 50 mg Oral Daily oxyCODONE 30 mg Oral 2 times per day pneumococcal 20-valent conjugate vaccine 0.5 mL Intramuscular ONCE propranoloL 20 mg Oral *Q12H QUEtiapine 100 mg Oral BID rOPINIRole 2 mg Oral TID tiZANidine 8 mg Oral Nightly torsemide 20 mg Oral Daily traMADoL 50-100 mg Oral QID warfarin 7.5 mg Oral Once WARF warfarin - pharmacy-managed therapy MISCELLANEOUS Daily sodium chloride 0.9 % Stopped (01/20/25 0359) Objective: BP 143/70 (BP Location: Left arm, Patient Position: Semi Fowlers) Pulse 71 Temp 98.1 ??F (36.7 ??C) (Oral) Resp 16 Ht 5' 6 (1.676 m) Wt (!) 511 lb (231.8 kg) LMP 12/15/2024 SpO2 96% BMI 82.48 kg/m?? Patient not in acute distress. Neck supple, no JVD. Lungs CTA. Heart regular S1, S2 are normal. No murmur. Abd soft, NT, ND, bowel sounds are present. Ext nonpitting edema of the lower extremities. Neuro AAO X3. No focal deficits. Labs: CBC: Lab Results Component Value Date WBC 8.2 01/18/2025 RBC 3.95 01/18/2025 HGB 8.3 (L) 01/18/2025 HCT 28.5 (L) 01/18/2025 MCV 72.2 (L) 01/18/2025 MCHC 29.1 (L) 01/18/2025 PLT 286 01/18/2025 BMP: Lab Results Component Value Date NA 137 01/20/2025 K 4.2 01/20/2025 CL 104 01/20/2025 CO2 21 (L) 01/20/2025 BUN 24 (H) 01/20/2025 CREATININE 1.61 (H) 01/20/2025 CALCIUM 7.8 (L) 01/20/2025 GLU 175 (H) 01/20/2025 Coagulation: Lab Results Component Value Date INR 2.58 (H) 01/20/2025 Intake/Output Summary (Last 24 hours) at 01/20/2025 0902 Last data filed at 01/20/2025 0604 Gross per 24 hour Intake 5235.34 ml Output 2000 ml Net 3235.34 ml Accucheck Results: Radiology results: No results found. Active Hospital Problems Diagnosis *Pneumonia of right lower lobe due to infectious organism GRAZYNA (acute kidney injury). Likely due to vancomycin toxicity. Creatinine is improving Mood disorder Chronic back pain Cellulitis of abdominal wall. Improving. Patient picks her skin constantly. Factor V Leiden Class 3 severe obesity with body mass index (BMI) greater than or equal to 70 in adult Anemia of chronic disease Type 2 diabetes mellitus, without long-term current use of insulin (HCC) Hypertension Hypothyroidism Assessment/Plan Assessment & Plan Pneumonia of right lower lobe due to infectious organism Continue Augmentin 875 mg twice daily and doxycycline 100 mg twice daily Factor V Leiden Patient is on Coumadin. Pharmacy is managing Labs reviewed. INR is 2.64 Discussed with pharmacy. Hypothyroidism Continue Synthroid 50 mcg daily Hypertension On Norvasc 5 mg daily Type 2 diabetes mellitus, without long-term current use of insulin (HCC) Continue glipizide 5 mg daily. Continue insulin administration via insulin calculator Continue to hold metformin due to GRAZYNA Class 3 severe obesity with body mass index (BMI) greater than or equal to 70 in adult Weight loss recommended as obesity complicates all aspects of care Cellulitis of abdominal wall. Improving. Patient picks her skin constantly. Change vancomycin and cefepime to Augmentin and continue doxycycline 100 mg twice daily Chronic back pain Patient is on oxycontin 15 mg every 12 hours On Zanaflex 8 mg at bedtime. Mood disorder On Prozac 20 mg daily Anemia of chronic disease Continue to monitor hemoglobin Ferrlecit 125 mg x 2 doses given. GRAZYNA (acute kidney injury). Likely due to vancomycin toxicity. Creatinine is improving Continue to monitor renal function Hold metformin for 2-3 more days. DVT Prophylaxis. Qualifying Pharmacologic Prophylaxis warfarin (COUMADIN) tablet 7.5 mg ONCE WARFARIN WARFARIN - PHARMACY-MANAGED THERAPY Daily [facility]. [facility] Harriet Godinez MD Part of this note was dictated using voice recognition technology and may include unintended spelling errors. * Alexia Cline [facility] - 01/20/2025 8:11 AM EDT Pharmacy Consult: Warfarin HPI: Evangelist Nettles is a(n) 44 y.o. female admitted for PNA and abdominal wall cellulitis, patient awaiting discharge to [facility]. Indication for warfarin: Heterozygous FVL, hx DVT/PE, s/p IVC filter. INR Goal: 2.0 to 3.0 Warfarin therapy prior to admit: 7.5 mg daily. Warfarin managed outpatient by: outpatient physician's office - Dr. Ohara ([facility] [place]) - patient has home monitor. O: Most Recent Labs: Recent Labs 01/15/25 0639 01/16/25 0442 01/17/25 0618 01/18/25 0625 01/19/25 0628 01/20/25 0736 HGB 8.0* 7.6* -- 8.3* -- -- HCT 26.9* 25.8* -- 28.5* -- -- PLT 266 259 -- 286 -- -- INR 1.65* 1.90* < > 2.42* 2.64* 2.58* < > = values in this interval not displayed. Weight: (!) 511 lb (231.8 kg) A/P: Physician orders and progress notes reviewed. Date INR Warfarin Dose Notes 01/13 4.25 HOLD 01/14 1.99 11.25 mg 01/15 1.65 7.5 mg 01/16 1.90 7.5 mg 01/17 2.04 7.5 mg 01/18 2.42 5 mg 01/19 2.64 7.5 mg 01/20 2.58 7.5 mg planned Hgb/Hct are low but stable, PMH significant for anemia. Bleeding signs/symptoms noted: scattered bruising. INR is 2.58 today; Drug Interactions: doxycycline and amoxicillin/clavulanate can increase INR. Will dose warfarin 7.5 mg today and continue to follow INR. Alexia Cline, PharmD, [facility] Discharge Recommendation: Recommend patient resume SHACTOR HELPER dose of warfarin 7.5 mg daily. Recommend INRcheck on 01/23. * Sunni Hendrickson RN - 01/19/2025 1:44 PM EDT Pt. Refusing turns in chair and bed at times. Pt. Refusing alarms. Education provided on safety andwound prevention. * Harriet Godinez MD - 01/19/2025 1:33 PM EDTAssociated Problem(s): Factor V Leiden Patient is on Coumadin. Pharmacy is managing Labs reviewed. INR is 2.64 Discussed with pharmacy. * Harriet Godinez MD - 01/19/2025 1:33 PM EDTAssociated Problem(s): Type 2 diabetes mellitus, without long-term current use of insulin (HCC) Continue glipizide 5 mg daily. Continue insulin administration via insulin calculator Continue to hold metformin due to GRAZYNA * Harriet Godinez MD - 01/19/2025 1:33 PM EDTAssociated Problem(s): GRAZYNA (acute kidney injury). Likely due to vancomycin toxicity. Creatinine is improving Start continue gentle IV hydration with NS at 100 mL/h Vancomycin has been discontinued. Minimize use of nephrotoxic agents Monitor renal function * Alexia Cline [facility] - 01/19/2025 12:52 PM EDT Warfarin Education Note The patient and/or family/caregiver has been educated on warfarin therapy and provided with writtenwarfarin education material including: Importance of compliance with medication regimen and anticoagulation clinic or physician follow-up visits. Dietary guidelines including Vitamin K content of foods and corresponding consistency of diet. Potential for adverse drug reactions and/or interactions involving prescription, non-prescription, and herbal supplements. Educated on warfarin therapy. Patient well versed on warfarin therapy; patient likely going to rehab at d/c which will manage therapy. Alexia Cline, PharmD, BCPS * Sosa Ornelas MSW - 01/19/2025 12:18 PM EDT 01/19 - Discussed therapy recommendation and provided list at bedside. Requested referral sent to [facility]. Has been there before and had a positive experience. Awaiting on update if facility can accept. Will need transportation at [place]. [facility] to follow. Update @ 2:10- [facility] able to accept. Spoke to Evangelist will have equipment and a bed available on 01/20. Plans to follow up with [facility] in the AM regarding time for discharge. Will need transportation. SW following. * Araceli Lagos PTA - 01/19/2025 11:51 AM EDT 01/19/25 1143 PT Subjective Note Type Treatment/Progress Patient Room/Unit 3611 PT Subjective Comments #1 Pt in chair by the window. Agreeable to Rx. Discharge Information This progress note will serve as the discharge summary if no further therapy is provided prior to the patient being discharged from the hospital. Pain Screening PT/OT Patient Currently in Pain Yes Pain Rating 7 Pain Location Back;Leg Pain Orientation Lower;Left;Distal Pain Intervention(s) Repositioned;Distraction Additional Comments reports pain as chronic Cognition Orientation Intact Arousal Normal Safety Awareness Impaired Safety Awareness Impairment Minimal Impairments: Needs up to 25% input/direction from therapist in order to identify safety issues and maintain safety. Precautions Precaution Info Given Yes;To use call light to request assistance with all mobility Other precautions REYES Observation Presentation Patient seated in chair Observation IV;Telemetry Vitals VSS on RA, REYES with light activity Transfers Sit to Stand Contact guard assist;With verbal cues Stand to Sit Contact guard assistance;With verbal cues Additional Comments bariatric RW, verbal cues for safe hand placement Gait Gait Contact guard assist;With verbal cues Gait Distance (Feet) 15 Feet (x 2) Assistive Device 2 Wheel walker;Bariatric Pattern Slow olimpia;Step to;Flexed posture Additional Comments Pt amb 15' to BSC, +urine, then amb 15' back to recliner. increased mediolateral sway, REYES. Pt dep for hygiene. RN aware PT/OT Mobility Documentation PT/OT Mobility Score 6 AM PAC: How much help from another person does the patient currently need... turning from your back to your side while in a flat bed without using bedrails? 3 moving from lying on your back to sitting on the side of a flat bed without using bedrails? 3 moving to and from a bed to a chair? 3 standing up from a chair using your arms (e.g. wheelchair, or bedside chair)? 3 need to walk in hospital room? 3 climbing 3-5 steps with a railing? 2 AM PAC: BASIC MOBILITY SCORING AM PAC Moblity Raw Score 17 AM PAC Mobility CMS 0-100% Functional Percentage 43.83 AM PAC Mobility CMS G Code Modifier CK Balance Sitting Balance 3/5 sits without UE support up to 30 seconds Standing Balance 2/5 indep, requires both UE support Exercise Additional Comments seated AP, LAQ, hip abd, trunk flex/ext x 10 eachB Education Education To use call light to request assistance with all mobility;Role of Therapy;Safety with mobility;Cues for proper technique;Up with assistance only;Precautions;Safe and proper technique with transfers;Safe and proper technique with gait pattern Additional Comments Pt chair by window and unable to reach call light. Pt uses cell phone to call station for assist Patient Safety Patient Safety Patient left in chair with needs in reach (Pt's mobile phone was on neckcord/hanging from pt's neck.) Assessment Assessment Decreased gait;Decreased functional mobility;Decreased balance;Decreased RightLower Extremity strength;Decreased Left Lower Extremity strength;Decreased activity tolerance ;Decreased safety judgement Progress Progressing toward goals Rationale for Skilled Therapy Fall Risk;Balance Deficits;Not safe with independent transfers;Not safe ambulating independently Plan Treatment/Interventions Continue with current plan of care Recommendation PT Recommendation Moderate frequency, moderate intensity five days a week therapy recommended. Time In / Time Out 1120/1143 IP PT Treatment Minutes 23 (gait,TE) The total time spent caring for this patient included but was not limited to medical record review;hands-on treatment;assessment of the patient's progress since the last session;clinical judgement necessary for treatment planning for next session;communication with nursing and/or care coordination/social work regarding patient status and discharge planning * Alexia Cline, [facility] - 01/19/2025 11:04 AM EDT Pharmacy Consult: Warfarin HPI: Evangelist Nettles is a(n) 44 y.o. female admitted for PNA and abdominal wall cellulitis, patient awaiting discharge. Indication for warfarin: Heterozygous FVL, hx DVT/PE, s/p IVC filter. INR Goal: 2.0 to 3.0 Warfarin therapy prior to admit: 7.5 mg daily. Warfarin managed outpatient by: outpatient physician's office - Dr. Ohara ([facility] [place]) - patient has home monitor. O: Most Recent Labs: Recent Labs 01/15/25 0639 01/16/25 0442 01/17/25 0618 01/18/25 0625 01/19/25 0628 HGB 8.0* 7.6* -- 8.3* -- HCT 26.9* 25.8* -- 28.5* -- PLT 266 259 -- 286 -- INR 1.65* 1.90* 2.04* 2.42* 2.64* Weight: (!) 511 lb (231.8 kg) A/P: Physician orders and progress notes reviewed. Date INR Warfarin Dose Notes 01/13 4.25 HOLD 01/14 1.99 11.25 mg 01/15 1.65 7.5 mg 01/16 1.90 7.5 mg 01/17 2.04 7.5 mg 01/18 2.42 5 mg 01/19 2.64 7.5 mg planned Hgb/Hct are low but stable patient does have a history of anemia. Bleeding signs/symptoms noted: scattered bruising. INR is 2.64 today; Drug Interactions: doxycycline and amoxicillin/clavulanate can increase INR Will dose warfarin 7.5 mg today and continue to follow INR. Alexia Cline, PharmD, BCPS * Harriet Godinez MD - 01/19/2025 9:04 AM EDTAssociated Problem(s): Pneumonia of right lower lobe due to infectious organism Continue Augmentin 875 mg twice daily and doxycycline 100 mg twice daily * Harriet Godinez MD - 01/19/2025 9:04 AM EDTAssociated Problem(s): Hypothyroidism Continue Synthroid 50 mcg daily * Harriet Godinez MD - 01/19/2025 9:04 AM EDTAssociated Problem(s): Hypertension On Norvasc 5 mg daily * Harriet Godinez MD - 01/19/2025 9:04 AM EDTAssociated Problem(s): Class 3 severe obesity with body mass index (BMI) greater than or equal to 70 in adult Weight loss recommended as obesity complicates all aspects of care * Harriet Godinez MD - 01/19/2025 9:04 AM EDTAssociated Problem(s): Cellulitis of abdominal wall. Improving. Patient picks her skin constantly. Change vancomycin and cefepime to Augmentin and continue doxycycline 100 mg twice daily * Harriet Godinez MD - 01/19/2025 9:04 AM EDTAssociated Problem(s): Chronic back pain Patient is on oxycontin 15 mg every 12 hours On Zanaflex 8 mg at bedtime. * Harriet Godinez MD - 01/19/2025 9:04 AM EDTAssociated Problem(s): Mood disorder On Prozac 20 mg daily * Harriet Godinez MD - 01/19/2025 9:04 AM EDTAssociated Problem(s): Anemia of chronic disease Continue to monitor hemoglobin Ferrlecit 125 mg x 2 doses given. * Harriet Godinez MD - 01/19/2025 9:04 AM EDT Images from the original note were not included. Adult Progress Note Admit Date: 01/13/2025 LOS: 6 days HPI: Evangelist Nettles is a(n)44 y.o. female admitted with Pneumonia of right lower lobe due to infectious organism [J18.9]. Subjective: Seen today, patient said feeling okay today. She does not have any specific complaints. No major event noted by nursing Scheduled Meds: amLODIPine 5 mg Oral Daily amoxicillin-clavulanate 1 Tablet Oral 2 times per day atorvastatin 40 mg Oral Nightly doxycycline hyclate 100 mg Oral 2 times per day FLUoxetine 60 mg Oral Nightly glipiZIDE 5 mg Oral Daily WM Insulin Calculator (SEBD TEACHER) - FSBS (Correction Only) Input 1 Each MISCELLANEOUS QID WM And insulin aspart (NovoLOG) - Correction - Calculator 0-40 Units Subcutaneous QID WM LEVOthyroxine 75 mcg Oral DAILY EARLY AM miconazole Topical BID mirabegron 50 mg Oral Daily oxyCODONE 30 mg Oral 2 times per day pneumococcal 20-valent conjugate vaccine 0.5 mL Intramuscular ONCE propranoloL 20 mg Oral *Q12H QUEtiapine 100 mg Oral BID rOPINIRole 2 mg Oral TID tiZANidine 8 mg Oral Nightly torsemide 20 mg Oral Daily traMADoL 50-100 mg Oral QID warfarin 7.5 mg Oral Once WARF warfarin - pharmacy-managed therapy MISCELLANEOUS Daily sodium chloride 0.9 % 100 mL/hr at 01/18/25 2322 Objective: BP 125/66 (BP Location: Left arm, Patient Position: Semi Fowlers) Pulse 68 Temp 97.7 ??F (36.5 ??C) (Oral) Resp 16 Ht 5' 6 (1.676 m) Wt (!) 511 lb (231.8 kg) LMP 12/15/2024 SpO2 98% BMI 82.48 kg/m?? Patient not in acute distress. Neck supple, no JVD. Lungs CTA. Heart regular S1, S2 are normal. No murmur. Abd soft, NT, ND, bowel sounds are present. Ext No edema or calf pain. Neuro AAO X3. No focal deficits. Skin improving erythema of the abdominal wall. Labs: CBC: Lab Results Component Value Date WBC 8.2 01/18/2025 RBC 3.95 01/18/2025 HGB 8.3 (L) 01/18/2025 HCT 28.5 (L) 01/18/2025 MCV 72.2 (L) 01/18/2025 MCHC 29.1 (L) 01/18/2025 PLT 286 01/18/2025 BMP: Lab Results Component Value Date NA 136 01/19/2025 K 4.1 01/19/2025 CL 103 01/19/2025 CO2 22 01/19/2025 BUN 25 (H) 01/19/2025 CREATININE 1.65 (H) 01/19/2025 CALCIUM 7.7 (L) 01/19/2025 GLU 149 (H) 01/19/2025 Coagulation: Lab Results Component Value Date INR 2.64 (H) 01/19/2025 Intake/Output Summary (Last 24 hours) at 01/19/2025 0904 Last data filed at 01/18/2025 2326 Gross per 24 hour Intake 2756.28 ml Output -- Net 2756.28 ml Accucheck Results: Radiology results: No results found. Active Hospital Problems Diagnosis *Pneumonia of right lower lobe due to infectious organism GRAZYNA (acute kidney injury). Likely due to vancomycin toxicity Mood disorder Chronic back pain Cellulitis of abdominal wall. Improving. Patient picks her skin constantly. Factor V Leiden Class 3 severe obesity with body mass index (BMI) greater than or equal to 70 in adult Anemia of chronic disease Type 2 diabetes mellitus, without long-term current use of insulin (HCC) Hypertension Hypothyroidism Assessment/Plan Assessment & Plan Pneumonia of right lower lobe due to infectious organism Continue Augmentin 875 mg twice daily and doxycycline 100 mg twice daily Factor V Leiden Patient is on Coumadin. Pharmacy is managing Labs reviewed. INR is 2.64 Discussed with pharmacy. Hypothyroidism Continue Synthroid 50 mcg daily Hypertension On Norvasc 5 mg daily Type 2 diabetes mellitus, without long-term current use of insulin (HCC) Continue glipizide 5 mg daily. Continue insulin administration via insulin calculator Continue to hold metformin due to GRAZYNA Class 3 severe obesity with body mass index (BMI) greater than or equal to 70 in adult Weight loss recommended as obesity complicates all aspects of care Cellulitis of abdominal wall. Improving. Patient picks her skin constantly. Change vancomycin and cefepime to Augmentin and continue doxycycline 100 mg twice daily Chronic back pain Patient is on oxycontin 15 mg every 12 hours On Zanaflex 8 mg at bedtime. Mood disorder On Prozac 20 mg daily Anemia of chronic disease Continue to monitor hemoglobin Ferrlecit 125 mg x 2 doses given. GRAZYNA (acute kidney injury). Likely due to vancomycin toxicity. Creatinine is improving Start continue gentle IV hydration with NS at 100 mL/h Vancomycin has been discontinued. Minimize use of nephrotoxic agents Monitor renal function DVT Prophylaxis. Qualifying Pharmacologic Prophylaxis warfarin (COUMADIN) tablet 7.5 mg ONCE WARFARIN WARFARIN - PHARMACY-MANAGED THERAPY Daily Disposition. PT recommendation for SNF noted. Care coordination is arranging. To be discharged when placement is obtained. Harriet Goidnez MD Part of this note was dictated using voice recognition technology and may include unintended spelling errors. * Bernie Phillip OT - 01/19/2025 8:55 AM EDT 01/19/25 0855 OT Subjective Note Type Evaluation Patient Room/Unit 3611 OT Subjective Comments #1 Pt reports frustration with not being able to manage her toileting issues. Discharge Information Evaluation to serve as discharge summary if no further treatment provided before the facility discharge Admitting Diagnosis PNA. Pt presented to ED 01/13/2025 with c/o SOB and sharp chest pain. Pt was hospitalized 12/30-01/06/2025 d/t SVT right leg. Pt discharged to home. Pt is on anticoagulation. Past Med Hx Pt has a past medical history of Anemia, Anxiety, Chronic kidney disease, Diabetes mellitus (HCC), Eczema, Factor V Leiden, Herniation of intervertebral disc between L5 and S1, Hypertension, AURELIA (obstructive sleep apnea), and Thyroid disease. has a past surgical history that includes section; back surgery; Abdomen surgery; INTERVENTIONAL RADIOLOGY PERIPHERALLY INSERTED CENTRAL CATHETER INSERTION EQUAL OR GREATER THAN FIVE YEARS (12/15/2019); Umbilical hernia repair (2007); and INTERVENTIONAL RADIOLOGY INFERIOR VENA CAVA FILTER PLACEMENT. Diagnostic Testing 01/13/2025 CT angiogram pulmonary:Limited study secondary to body habitus. Right lung pneumonia. No definite pulmonary embolism. 01/18/2025 Hgb 8.3. Precautions Therapy Precautions Yes Precaution Info Given Yes;To use call light to request assistance with all mobility Home Living/Prior Function Type of Home House Home Layout One level;Ramped entrance Number of Steps 1 Additional Comments 1 step at laundry room. Ramp to enter home is very steep and was difficult for pt to navigate at last hospital discharge. Home Equipment 2 wheeled walker;Wheelchair-manual;Scooter;Power wheelchair;Bedside commode;Shower chair Level of Assistance Needs assistance with ADLs;Needs assistance with homemaking;Independent with functional transfers Lives With Daughter (and daughter's boyfriend) Fall History No falls in the last three months ADL Assistance Bathing;Dressing;Toileting Homemaking Assistance Laundry;Shopping;Cleaning;Yard Work Driving No Vocational Disabled Additional Comments Pt reported she ambulates short distances with her home. She uses her WC. Pt reported she spends majority of her time seated EOB. She does not have a chair that safely accomodatesher size/supports her legs. Hair washing is a problem because pt is unable to fit in her showerPt'sdaughter assists pt with pericare/personal hygiene as pt is unable to reach all areas of her body. S he has had particular problems managing her periods. Pt has very limited finances.Her truck is not operational. It is difficult for pt to navigate the ramp at her home, which makes leaving home for medical appointments very difficult. Pt's home does not accomodate use of scooter inside home. Power WC not working/needs to be replaced. Pt's family has limited ability/availability to assist pt.Pt goes barefoot at home: she is struggling to find footwear that fits her feet. Cognition Orientation Intact Arousal Normal Safety Awareness Impaired Safety Awareness Impairment Minimal Impairments: Needs up to 25% input/direction from therapist in order to identify safety issues and maintain safety. Affect/Ability to cope Normal Command Following Normal Memory Intact Communication Intact Pain Screening PT/OT Patient Currently in Pain Yes Pain Rating Patient unable to rate pain Pain Location Back;Leg Pain Orientation Left Pain Intervention(s) Distraction Observation Presentation Patient resting in bed Observation IV;Telemetry;Bed alarm;Chair alarm Vitals VSS on RA UE Assessment LUE Assessment X LUE Additional Comments Some decreased activity tolerance for UE tasks. RUE Assessment X RUE Additional Comments Some decreased activity tolerance for UE tasks. Hand Function Gross Grasp Functional Coordination Functional ADL Interventions Where Assessed Edge of bed;Chair;Supine, bed Feeding Assistance Independent Grooming Assistance Stand by UE Bathing Assistance Minimal LE Bathing Assistance Moderate UE Dressing Assistance Minimal LE Dressing Assistance Moderate Toileting Moderate assist Bed Mobility Supine to Sit Stand by assist Transfers Sit to Stand Stand by assist;Contact guard assist;With verbal cues Stand to Sit Stand by assistance;Contact guard assistance Bed to/from chair Stand by assist;Contact guard assist Additional Comments Bariatric wh walker to chair. Pt prefers the chair be cushioned two pillows mariya platform step is used as a foot rest. Balance Sitting Balance 3/5 sits without UE support up to 30 seconds Standing Balance 2/5 indep, requires both UE support AM PAC: How much help from another person does the patient currently need... putting on and taking off regular lower body clothing? 2 bathing (including washing, rinsing, drying)? 2 toileting, which includes using toilet, bedpan or urinal? 2 putting on and taking off regular upper body clothing? 3 taking care of personal grooming such as brushing teeth? 3 eating meals? 4 AM PAC DAILY ACTIVITY SCORING Daily Activity Raw Score 16 AM PAC Daily Activity CMS 0-100% Functional Percentage 53.32 AM PAC Daily Activity CMS G Code Modifier CK Education Education To use call light to request assistance with all mobility;Patient/Family Education;Role of Therapy;Safety with mobility;Cues for proper technique;Discharge planning;Up with assistance only;Precautions Patient Safety Patient left in chair with needs in reach;Chair/personal alarm activated Assessment Assessment Decreased ADL status;Decreased UE strength;Decreased endurance;Decreased self-care transfers;Decreased high-level ADLs;Decreased Coordination Prognosis Fair Rationale for Skilled Therapy Fall Risk;Balance Deficits;Needs physical cues for ADL's;Needs verbal/tactile cues for ADL's Goals Patient and/or Family Goal Pt wants ideas to help her with toileting, managing her period, and for washing her hair. Goals Yes Goal Formulation With Patient Time for Goal Achievement/Duration of Treatment 1-2 weeks ADL Goals Pt Will Perform All ADL's Mod indep Functional Transfer Goals Pt Will Perform All Functional Transfers Mod indep Arm Goals Pt Will Complete Theraband Exer B UE;15 reps;Level 3 Theraband;With good activity tolerance;Withoutcomplain/sign of pain Additional Goals Perform simple homemaking tasks Mod Independent (light meals) Additional Goals Pt will tolerate standing for 1-2 minutes for ADLs Plan Treatment Interventions ADL retraining;Instrumental ADL retraining;Functional transfer training;UE strengthening/ROM;Endurance training;Cognitive reorientation;Patient/Family training;Equipment eval/education;Neuro muscular reeducation;Compensatory technique education OT Frequency 2-5x/wk Recommendation OT Recommendation Moderate frequency, moderate intensity five days a week therapy recommended. Time In / Time Out [id number] IP OT Evaluation Minutes 10 IP OT Individual Treatment Minutes 38 The total time spent caring for this patient included but was not limited to medical record review;hands-on treatment;communication and education with patient and/or family/caregiver;assessment of the patient's progress since the last session;clinical judgement necessary for treatment planning for next session;communication with nursing and/or care coordination/social work regarding patient status and discharge planning * Lucia Moon, PT - 01/18/2025 5:22 PM EDT 01/18/25 1722 PT Subjective Note Type Evaluation Patient Room/Unit 3611 PT Subjective Comments #1 Pt agreed to work with therapy. Pt reported new left leg issues since being in ED: was on gurney, unable to reposition/no permitted to be up to chair or sit edge of gurney d/t fall risk (per pt report). Pt reported her left leg feels heavy , and described her left leg as feeling . Pt reported her doctor told her it is probably a pinched nerve and should resolve. Pt voiced concern over new symptoms (see pain screening). Pt also reported it was very diffcult for her to ascend the ramp to enter her home when she was recently discharged from the hospital. Pt reported continued difficulty with personal hygiene/pericare (she is unable to reach all areas of her body and needs assistance). Pt's daughter does assist pt but pt would like to be more independent. Discharge Information Evaluation to serve as discharge summary if no further treatment provided before the facility discharge Admitting Diagnosis pneumonia Past Med Hx has a past medical history of Anemia, Anxiety, Chronic kidney disease, Diabetes mellitus (HCC), Eczema, Factor V Leiden, Herniation of intervertebral disc between L5 and S1, Hypertension,AURELIA (obstructive sleep apnea), and Thyroid disease. has a past surgical history that includes section; back surgery; Abdomen surgery; INTERVENTIONAL RADIOLOGY PERIPHERALLY INSERTED CENTRAL CATHETER INSERTION EQUAL OR GREATER THAN FIVE YEARS (12/15/2019); Umbilical hernia repair (2007); andINTERVENTIONAL RADIOLOGY INFERIOR VENA CAVA FILTER PLACEMENT. Diagnostic Testing 01/13/2025 CT angiogram pulmonary:Limited study secondary to body habitus. Right lung pneumonia. No definite pulmonary embolism. 01/18/2025 Hgb 8.3. Clinical Course Pt presented to ED 01/13/2025 with c/o SOB and sharp chest pain. Pt was hospitalized12/30-01/06/2025 d/t SVT right leg. Pt discharged to home. Pt is on anticoagulation. Pain Screening PT/OT Patient Currently in Pain Yes Pain Rating 7 Pain Location Back;Leg Pain Orientation Lower;Left;Distal Pain Intervention(s) Repositioned;Distraction;Rest Additional Comments Pt reported chronic low back pain and h/o lx surgery(L5, S1). Pt described onset 01/13/2025 after being on gurney in ED: radicular pain from left Lx/SI area, across left buttock and down left LE. Pt reported heaviness', feeling in left calf area (distal 1/2). Pt reported she's been told not to use cold pack or heating pad d/t her h/o blood clot. Pt reported she's alwaysbeen able to perform LE ROM in the past when she's needed to wake up her leg but ROM is not helpfulwith this new pain. PT instructed pt in gentle forward flex seated as pt tolerates. Pt reported that movement does cause a stretch and she feels that's OK. Cautioned pt to avoid increasing radicular symptoms or increasing low back pain. Encouraged pt to reposition every 2hrs. If pt is seated in chair, have nursing assist her to stand with bariatric walker as pt tolerates in order to unweight buttocks/provide pressure relief as well as increase active use of LEs. Also, perform ankel pumps and knee extension as tolerated for reposition, aid in circulation and pressure relief. Pt voiced understanding. Forward flex seated up to 5 reps as tolerated. Cognition Orientation Intact Arousal Normal Safety Awareness Impaired Safety Awareness Impairment Minimal Impairments: Needs up to 25% input/direction from therapist in order to identify safety issues and maintain safety. Affect/Ability to cope Normal Command Following Normal Memory Intact Communication Intact Precautions Therapy Precautions Yes Precaution Info Given Yes;To use call light to request assistance with all mobility Other precautions REYES Home Living/Prior Function Type of Home House Home Layout One level;Ramped entrance Number of Steps 1 Additional Comments 1 step at laundry room. Ramp to enter home is very steep and was difficult for pt to navigate at last hospital discharge. Home Equipment 2 wheeled walker;Bedside commode;Shower stool;Wheelchair- manual;Scooter;Power wheelchair Level of Assistance Needs assistance with ADLs;Needs assistance with homemaking;Ambulatory in home;Independent with functional transfers Lives With Daughter (daughter's boyfriend) Additional Comments Pt reported she ambulates short distances with her home. She uses her WC. Pt reported she spends majority of her time seated EOB. She does not have a chair that safely accomodatesher size/supports her legs. Pt's daughter assists pt with pericare/personal hygiene as pt is unableto reach all areas of her body. Pt has very limited finances.Her truck is not operational. It is difficult for pt to navigate the ramp at her home, which makes leaving home for medical appointments very difficult. Pt's home does not accomodate use of scooter inside home. Power WC not working/needs to be replaced. Pt's family has limited ability/availability to assist pt.Pt goes barefoot at home: she is struggling to find footwear that fits her feet. Coord/Sensation Additional Comments Pt reported altered sensation left LE: distal 1/2 calf area, generalized/circumferential area. Pt also reported radicular sciatic pain left. Observation Presentation Patient seated in chair Posture 5'6 , 511 lbs per medical record. Observation IV;Telemetry Vitals O2 sats room air 96-99% this session. REYES with light exertion. Additional Comments edema mackenzie feet and LEs. Abdominal pannus. UE Assessment LUE Additional Comments AROM WFL. OT eval pending. Defer details to OT eval. RUE Additional Comments see left UE LE Assessment LLE Additional Comments limited hip and knee flex d/t adipose tissue/soft tissue constraints. Quadsstrength 4+/5, DF 4+/5 mackenzie. RLE Additional Comments see left LE Bed Mobility Additional Comments not tested: pt in bariatric recliner with feet on floor/in dependent position. Transfers Sit to Stand Contact guard assist;With verbal cues (baritric rolling walker) Stand to Sit Contact guard assistance;With verbal cues (bariatric rolling walker) Stand Pivot Transfers Minimal assistance;Contact guard assist (bariatric rolling walker) Gait Gait Contact guard assist;With verbal cues Gait Distance (Feet) 15 Feet (+additional 5' with seated rest b/t reps) Assistive Device Bariatric;2 Wheel walker Pattern Slow olimpia;Step to Weight Bearing Status Weight bearing as tolerated Additional Comments increased mediolateral sway. Rapid fatigue. REYES with light activity. Stair Management Assistance Not performed Additional comments defer stairs d/t REYES with light actiivity on level surface. Functional Status Score (FSS-ICU) Is the patient currently in ICU? No PT/OT Mobility Documentation PT/OT Mobility Score 6 AM PAC: How much help from another person does the patient currently need... turning from your back to your side while in a flat bed without using bedrails? 3 moving from lying on your back to sitting on the side of a flat bed without using bedrails? 3 moving to and from a bed to a chair? 3 standing up from a chair using your arms (e.g. wheelchair, or bedside chair)? 3 need to walk in hospital room? 3 climbing 3-5 steps with a railing? 2 AM PAC: BASIC MOBILITY SCORING AM PAC Moblity Raw Score 17 AM PAC Mobility CMS 0-100% Functional Percentage 43.83 AM PAC Mobility CMS G Code Modifier CK Balance Sitting Balance 3/5 sits without UE support up to 30 seconds Standing Balance 2/5 indep, requires both UE support Exercise Additional Comments educated pt in seated forward trunk flex and LE AROM as tolerated. Education Education To use call light to request assistance with all mobility;Patient/Family Education;Role of Therapy;Safety with mobility;Cues for proper technique;Discharge planning;Up with assistance only;Precautions;Safe and proper posture/positioning;Safe and proper technique with transfers;Safe and proper technique with gait pattern;Pursed lip breathing;Energy conservation;Educated on benefits of mobility, upright positioning, and getting out of bed;Elevation of extremity Additional Comments pt's chair was positioned by window and was out of reach of call button. Pt reported she uses her mobile phone to call for nursing assistance. Educated pt re: [employer] re: home needs for equipment/specialized equipment. Educated pt re: this organization's Facebook and contact info/website. Patient Safety Patient Safety Patient left in chair with needs in reach;Other (comment) (Pt's mobile phone was on neckcord/hanging from pt's neck.) Assessment Assessment Decreased gait;Decreased functional mobility;Decreased balance;Decreased ADL status;Decreased activity tolerance ;Decreased trunk ROM;Decreased endurance;Decreased sensation;Decreased self-care transfers;Decreased high-level ADLs Prognosis Fair;Good;With continued PT s/p acute discharge Progress Improving as expected Rationale for Skilled Therapy Fall Risk;Balance Deficits;Not safe with independent transfers;Not safe ambulating independently;Requires physical assistance with ADLs;Requires multi-disciplinary team;Able to make measurable improvements;Decreased endurance and tolerance to activity Goals Patient and/or Family Goal Safely return to home, resolve radicular left LE symptoms, be able to safely walk up/down her ramp to access her home, be able to be more independent with ADLs. PT GOALS (Yes/No) Yes Add Goals Will Perform Sit to Stand Modified independent;With least restrictive assistive device Will Ambulate With least restrictive assistive device;11-30 feet;31-50 feet;With stand by assist Will Go Up / Down Stairs 1-2 stairs;With contact guard assistance Will Stand 1-2 min;With stand by assist;To improve functional mobility (with appropriate assistive device) Other Goal Centralize left LE radicular pain to left buttock. Goal Formulation With patient Time for Goal Achievement/Duration of Treatment 01/31/2025 Plan Treatment/Interventions Gait training;Bed mobility;Neuromuscular re- education;Balance training;Functional transfer training;LE strengthening/ROM;Increase activity tolerance ;Cognitive reorientation;Pa tient/Family training;Equipment eval/education;Compensatory technique education;Co-treatment with Occupational Therapy PT Frequency 3-5x/week Recommendation PT Recommendation Moderate frequency, moderate intensity five days a week therapy recommended. Time In / Time Out 1619/1722 IP PT Evaluation Minutes 10 IP PT Treatment Minutes 53 (Gait, TA(2), Ther ex.) The total time spent caring for this patient included but was not limited to hands-on treatment;communication and education with patient and/or family/caregiver;assessment of the patient's progress since the last session;clinical judgement necessary for treatment planning for next session;medical record review * Harriet Godinez MD - 01/18/2025 4:15 PM EDTAssociated Problem(s): Pneumonia of right lower lobe due to infectious organism Continue Augmentin 875 mg twice daily and doxycycline 100 mg twice daily * Harriet Godinez MD - 01/18/2025 4:15 PM EDTAssociated Problem(s): Factor V Leiden Patient is on Coumadin. Pharmacy is managing Labs reviewed. INR is 2.42 Discussed with pharmacy. * Harriet Godinez MD - 01/18/2025 4:15 PM EDTAssociated Problem(s): Type 2 diabetes mellitus, without long-term current use of insulin (HCC) Continue glipizide 5 mg daily. Continue insulin administration via insulin calculator Hold metformin due to GRAZYNA * Harriet Godinez MD - 01/18/2025 4:15 PM EDTAssociated Problem(s): GRAZYNA (acute kidney injury). Likely due to vancomycin toxicity. Creatinine is improving Start gentle IV hydration with NS at 100 mL/h Vancomycin has been discontinued. Minimize use of nephrotoxic agents Monitor renal function * Lenard Manzo - 01/18/2025 11:08 AM EDT Images from the original note were not included. 01/18/25 1100 Reason for Visit Date of visit 01/18/25 Visited With Patient Visited By [facility] Office Helper Clerical Reason for Visit Sacramental needs Patient Assessment Patient Mormon at Registration Denominational Interventions with Patient Holy Communion Decline Care Plan Plan for Follow-Up Childcare Worker(s) will continue to follow throughout admission Childcare Worker, Pastoral and Spiritual Care For non-urgent requests, please place a Pastoral Care consult in [facility]. For all urgent matters, please send an urgent [facility] Secure Chat to the Pastoral Care group at your location. Between 11pm and 7am, please use On-Call Finder to send an [facility] Secure Chat to the on-call geospatial program management officer. Pastoral Care office phone numbers: EDG/COV/GRT [phone], MANNY [phone], FTT [phone], DBN [phone] * Alexia Cline, [facility] - 01/18/2025 10:55 AM EDT Pharmacy Consult: Warfarin HPI: Evangelist Nettles is a(n) 44 y.o. female admitted for PNA and abdominal wall cellulitis. Indication for warfarin: Heterozygous FVL, hx DVT/PE, s/p IVC filter. INR Goal: 2.0 to 3.0 Warfarin therapy prior to admit: 7.5 mg daily. Warfarin managed outpatient by: outpatient physician's office - Dr. Ohara ([facility] [place]) - patient has home monitor. O: Most Recent Labs: Recent Labs 01/14/25 0641 01/15/25 0639 01/16/25 0442 01/17/25 0618 01/18/25 0625 HGB 8.3* 8.0* 7.6* -- -- HCT 27.7* 26.9* 25.8* -- -- PLT 248 266 259 -- -- INR 1.99* 1.65* 1.90* 2.04* 2.42* Weight: (!) 511 lb (231.8 kg) A/P: Physician orders and progress notes reviewed. Date INR Warfarin Dose Notes 01/13 4.25 HOLD 01/14 1.99 11.25 mg 01/15 1.65 7.5 mg 01/16 1.90 7.5 mg 01/17 2.04 7.5 mg 01/18 2.42 5 mg planned Hgb/Hct are improving. Bleeding signs/symptoms noted: scattered bruising. INR is 2.42 today; Drug Interactions: doxycycline and amoxicillin/clavulanate can increase INR Will dose warfarin 5 mg today and continue to follow INR. Alexia Cline RPH * Evangelist Kemp MSW - 01/18/2025 10:47 AM EDT 01/18 SW- Plan remains for patient to return home at discharge. Patient may need transportation assistance. Recently was in hospital and was provided with Patient Toolkit and a jatinder application was put through to help her fix her vehicle. SW to follow. * Harriet Godinez MD - 01/18/2025 9:34 AM EDTAssociated Problem(s): Hypothyroidism Continue Synthroid 50 mcg daily * Harriet Godinez MD - 01/18/2025 9:34 AM EDTAssociated Problem(s): Hypertension On Norvasc 5 mg daily * Harriet Godinez MD - 01/18/2025 9:34 AM EDTAssociated Problem(s): Class 3 severe obesity with body mass index (BMI) greater than or equal to 70 in adult Weight loss recommended as obesity complicates all aspects of care * Harriet Godinez MD - 01/18/2025 9:34 AM EDTAssociated Problem(s): Cellulitis of abdominal wall. Improving. Patient picks her skin constantly. Change vancomycin and cefepime to Augmentin and continue doxycycline 100 mg twice daily * Harriet Godinez MD - 01/18/2025 9:34 AM EDTAssociated Problem(s): Chronic back pain Patient is on oxycontin 15 mg every 12 hours On Zanaflex 8 mg at bedtime. * Harriet Godinez MD - 01/18/2025 9:34 AM EDTAssociated Problem(s): Mood disorder On Prozac 20 mg daily * Harriet Godinez MD - 01/18/2025 9:34 AM EDTAssociated Problem(s): Anemia of chronic disease Continue to monitor hemoglobin Ferrlecit 125 mg x 2 doses given. * Harriet Godinez MD - 01/18/2025 9:33 AM EDT Images from the original note were not included. Adult Progress Note Admit Date: 01/13/2025 LOS: 5 days HPI: Evangelist Nettles is a(n)44 y.o. female admitted with Pneumonia of right lower lobe due to infectious organism [J18.9]. Subjective: Seen today, patient is complaining of nausea. Her cellulitis has improved significantly otherwise. No acute events reported by nursing. Scheduled Meds: amLODIPine 5 mg Oral Daily amoxicillin-clavulanate 1 Tablet Oral 2 times per day atorvastatin 40 mg Oral Nightly doxycycline hyclate 100 mg Oral 2 times per day FLUoxetine 60 mg Oral Nightly glipiZIDE 5 mg Oral Daily WM Insulin Calculator (SEBD TEACHER) - FSBS (Correction Only) Input 1 Each MISCELLANEOUS QID WM And insulin aspart (NovoLOG) - Correction - Calculator 0-40 Units Subcutaneous QID WM LEVOthyroxine 75 mcg Oral DAILY EARLY AM metFORMIN 500 mg Oral BID WM miconazole Topical BID mirabegron 50 mg Oral Daily oxyCODONE 30 mg Oral 2 times per day pneumococcal 20-valent conjugate vaccine 0.5 mL Intramuscular ONCE propranoloL 20 mg Oral *Q12H QUEtiapine 100 mg Oral BID rOPINIRole 2 mg Oral TID tiZANidine 8 mg Oral Nightly torsemide 20 mg Oral Daily traMADoL 50-100 mg Oral QID warfarin 5 mg Oral Once WARF warfarin - pharmacy-managed therapy MISCELLANEOUS Daily Objective: BP 150/69 (BP Location: Left arm, Patient Position: Semi Fowlers) Pulse 76 Temp 97.2 ??F (36.2 ??C) (Oral) Resp 16 Ht 5' 6 (1.676 m) Wt (!) 511 lb (231.8 kg) LMP 12/15/2024 SpO2 98% BMI 82.48 kg/m?? Patient not in acute distress. Neck supple, no JVD. Lungs decreased breath sounds bilaterally Heart regular S1, S2 are normal. No murmur. Abd soft, NT, ND, bowel sounds are present. Ext No edema or calf pain. Neuro AAO X3. No focal deficits. Skin no significant erythema of the abdominal wall. Labs: CBC: Lab Results Component Value Date WBC 8.2 01/18/2025 RBC 3.95 01/18/2025 HGB 8.3 (L) 01/18/2025 HCT 28.5 (L) 01/18/2025 MCV 72.2 (L) 01/18/2025 MCHC 29.1 (L) 01/18/2025 PLT 286 01/18/2025 BMP: Lab Results Component Value Date NA 136 01/18/2025 K 4.0 01/18/2025 CL 102 01/18/2025 CO2 22 01/18/2025 BUN 27 (H) 01/18/2025 CREATININE 1.77 (H) 01/18/2025 CALCIUM 7.6 (L) 01/18/2025 GLU 149 (H) 01/18/2025 Coagulation: Lab Results Component Value Date INR 2.42 (H) 01/18/2025 Intake/Output Summary (Last 24 hours) at 01/18/2025 0933 Last data filed at 01/17/2025 1447 Gross per 24 hour Intake 372.32 ml Output 1000 ml Net -627.68 ml Accucheck Results: Radiology results: No results found. Active Hospital Problems Diagnosis *Pneumonia of right lower lobe due to infectious organism Mood disorder Chronic back pain Cellulitis of abdominal wall. Improving. Patient picks her skin constantly. Factor V Leiden Class 3 severe obesity with body mass index (BMI) greater than or equal to 70 in adult Anemia of chronic disease Type 2 diabetes mellitus, without long-term current use of insulin (HCC) Hypertension Hypothyroidism Assessment/Plan Assessment & Plan Pneumonia of right lower lobe due to infectious organism Continue Augmentin 875 mg twice daily and doxycycline 100 mg twice daily Factor V Leiden Patient is on Coumadin. Pharmacy is managing Labs reviewed. INR is 2.42 Discussed with pharmacy. Hypothyroidism Continue Synthroid 50 mcg daily Hypertension On Norvasc 5 mg daily Type 2 diabetes mellitus, without long-term current use of insulin (HCC) Continue glipizide 5 mg daily. Continue insulin administration via insulin calculator Hold metformin due to GRAZYNA Class 3 severe obesity with body mass index (BMI) greater than or equal to 70 in adult Weight loss recommended as obesity complicates all aspects of care Cellulitis of abdominal wall. Improving. Patient picks her skin constantly. Change vancomycin and cefepime to Augmentin and continue doxycycline 100 mg twice daily Chronic back pain Patient is on oxycontin 15 mg every 12 hours On Zanaflex 8 mg at bedtime. Mood disorder On Prozac 20 mg daily Anemia of chronic disease Continue to monitor hemoglobin Ferrlecit 125 mg x 2 doses given. GRAZNYA (acute kidney injury). Likely due to vancomycin toxicity Start gentle IV hydration with NS at 100 mL/h Vancomycin has been discontinued. Minimize use of nephrotoxic agents Monitor renal function DVT Prophylaxis. Qualifying Pharmacologic Prophylaxis warfarin (COUMADIN) tablet 5 mg ONCE WARFARIN WARFARIN - PHARMACY-MANAGED THERAPY Daily Disposition. Continue to monitor as inpatient today due to elevated creatinine Out of bed as tolerated in the meantime Harriet Godinez MD Part of this note was dictated using voice recognition technology and may include unintended spelling errors. * Jil Laguna RN - 01/18/2025 2:55 AM EDT Pt alerted staff that she did not want anyone in her room unless absolutely necessary. Pt refused 2nd assessment * Swapna Moise RN - 01/17/2025 6:58 PM EDT Patient refused multiple turns today. Patient stated that it is uncomfortable to sit with pillow under here. Educated patient on the importance of turns. Patient said she would make sure to shift herweight around. * Harriet Godinez MD - 01/17/2025 1:55 PM EDTAssociated Problem(s): Pneumonia of right lower lobe due to infectious organism Will de-escalate blood spectrum antibiotics and start Augmentin. Continue doxycycline 100 mg twice daily * Harriet Godinez MD - 01/17/2025 1:55 PM EDTAssociated Problem(s): Cellulitis of abdominal wall. Improving. Patient picks her skin constantly. Change vancomycin and cefepime to Augmentin and continue doxycycline 100 mg twice daily * Harriet Godinez MD - 01/17/2025 1:55 PM EDTAssociated Problem(s): Anemia of chronic disease Continue to monitor hemoglobin Ferrlecit 125 mg x 2 doses given. * Alexia Cline [facility] - 01/17/2025 11:17 AM EDT Pharmacy Consult: Warfarin HPI: Evangelist Nettles is a(n) 44 y.o. female admitted for PNA and abdominal wall cellulitis. Indication for warfarin: Heterozygous FVL, hx DVT/PE, s/p IVC filter. INR Goal: 2.0 to 3.0 Warfarin therapy prior to admit: 7.5 mg daily. Warfarin managed outpatient by: outpatient physician's office - Dr. Ohara ([facility] [place]) - patient has home monitor. O: Most Recent Labs: Recent Labs 01/14/25 0641 01/15/25 0639 01/16/25 0442 01/17/25 0618 HGB 8.3* 8.0* 7.6* -- HCT 27.7* 26.9* 25.8* -- PLT 248 266 259 -- INR 1.99* 1.65* 1.90* 2.04* Weight: (!) 511 lb (231.8 kg) A/P: Physician orders and progress notes reviewed. Date INR Warfarin Dose Notes 01/13 4.25 HOLD 01/14 1.99 11.25 mg 01/15 1.65 7.5 mg 01/16 1.90 7.5 mg 01/17 2.04 7.5 mg planned Hgb/Hct are slightly declined but stable. Bleeding signs/symptoms noted: none. INR is 2.04 today; Drug Interactions: doxycycline and cefepime can increase INR Will dose warfarin 7.5 mg today and continue to follow INR. Alexia Cline, PharmD, BCPS * Harriet Godinez MD - 01/17/2025 9:28 AM EDTAssociated Problem(s): Factor V Leiden Patient is on Coumadin. Pharmacy is managing Labs reviewed. INR is 1.90 today * Harriet Godinez MD - 01/17/2025 9:28 AM EDTAssociated Problem(s): Hypothyroidism Continue Synthroid 50 mcg daily * Harriet Godinez MD - 01/17/2025 9:28 AM EDTAssociated Problem(s): Hypertension On Norvasc 5 mg daily * Harriet Godinez MD - 01/17/2025 9:28 AM EDTAssociated Problem(s): Type 2 diabetes mellitus, without long-term current use of insulin (HCC) On metformin 500 mg twice daily and glipizide 5 mg daily. Continue insulin administration via insulin calculator * Harriet Godinez MD - 01/17/2025 9:28 AM EDTAssociated Problem(s): Class 3 severe obesity with body mass index (BMI) greater than or equal to 70 in adult Weight loss recommended as obesity complicates all aspects of care * Harriet Godinez MD - 01/17/2025 9:28 AM EDTAssociated Problem(s): Chronic back pain Patient is on oxycontin 15 mg every 12 hours On Zanaflex 8 mg at bedtime. * Harriet Godinez MD - 01/17/2025 9:28 AM EDTAssociated Problem(s): Mood disorder On Prozac 20 mg daily * Harriet Godinez MD - 01/17/2025 9:27 AM EDT Images from the original note were not included. Adult Progress Note Admit Date: 01/13/2025 LOS: 4 days HPI: Evangelist Nettles is a(n)44 y.o. female admitted with Pneumonia of right lower lobe due to infectious organism [J18.9]. Subjective: Seen today, patient said feeling okay today. Most of her symptoms have resolved No acute event reported by nursing. Scheduled Meds: amLODIPine 5 mg Oral Daily atorvastatin 40 mg Oral Nightly ceFEPIme (MAXIPIME) IVPB 2 g Intravenous 3 times per day doxycycline hyclate 100 mg Oral 2 times per day enoxaparin 40 mg Subcutaneous BID FLUoxetine 60 mg Oral Nightly glipiZIDE 5 mg Oral Daily WM Insulin Calculator (SEBD TEACHER) - FSBS (Correction Only) Input 1 Each MISCELLANEOUS QID WM And insulin aspart (NovoLOG) - Correction - Calculator 0-40 Units Subcutaneous QID WM LEVOthyroxine 75 mcg Oral DAILY EARLY AM metFORMIN 500 mg Oral BID WM miconazole Topical BID mirabegron 50 mg Oral Daily oxyCODONE 30 mg Oral 2 times per day pneumococcal 20-valent conjugate vaccine 0.5 mL Intramuscular ONCE propranoloL 20 mg Oral *Q12H QUEtiapine 100 mg Oral BID rOPINIRole 2 mg Oral TID tiZANidine 8 mg Oral Nightly torsemide 20 mg Oral Daily traMADoL 50-100 mg Oral QID vancomycin (VANCOCIN) IVPB (Orderable) 2,000 mg Intravenous *Q24H warfarin 7.5 mg Oral Once WARF warfarin - pharmacy-managed therapy MISCELLANEOUS Daily Objective: BP 126/55 Pulse 70 Temp 97.4 ??F (36.3 ??C) Resp 16 Ht 5' 6 (1.676 m) Wt (!) 511 lb (231.8 kg) LMP 12/15/2024 SpO2 98% BMI 82.48 kg/m?? Patient not in acute distress. Neck supple, no JVD. Lungs CTA. Heart regular S1, S2 are normal. No murmur. Abd soft, NT, ND, bowel sounds are present. The erythema abdominal wall is almost resolved Ext No edema or calf pain. Neuro AAO X3. No focal deficits. Labs: CBC: Lab Results Component Value Date WBC 6.2 01/16/2025 RBC 3.61 (L) 01/16/2025 HGB 7.6 (L) 01/16/2025 HCT 25.8 (L) 01/16/2025 MCV 71.5 (L) 01/16/2025 MCHC 29.5 (L) 01/16/2025 PLT 259 01/16/2025 BMP: Lab Results Component Value Date NA 133 (L) 01/17/2025 K 4.0 01/17/2025 CL 101 01/17/2025 CO2 20 (L) 01/17/2025 BUN 24 (H) 01/17/2025 CREATININE 1.64 (H) 01/17/2025 CALCIUM 7.3 (L) 01/17/2025 GLU 159 (H) 01/17/2025 Coagulation: Lab Results Component Value Date INR 2.04 (H) 01/17/2025 Intake/Output Summary (Last 24 hours) at 01/17/2025 0927 Last data filed at 01/17/2025 0847 Gross per 24 hour Intake 1320.12 ml Output 1000 ml Net 320.12 ml Accucheck Results: Radiology results: No results found. Active Hospital Problems Diagnosis *Pneumonia of right lower lobe due to infectious organism Mood disorder Chronic back pain Cellulitis of abdominal wall. Improving. Patient picks her skin constantly. Factor V Leiden Class 3 severe obesity with body mass index (BMI) greater than or equal to 70 in adult Anemia of chronic disease Type 2 diabetes mellitus, without long-term current use of insulin (HCC) Hypertension Hypothyroidism Assessment/Plan Assessment & Plan Pneumonia of right lower lobe due to infectious organism Will de-escalate blood spectrum antibiotics and start Augmentin. Continue doxycycline 100 mg twice daily Factor V Leiden Patient is on Coumadin. Pharmacy is managing Labs reviewed. INR is 1.90 today Hypothyroidism Continue Synthroid 50 mcg daily Hypertension On Norvasc 5 mg daily Type 2 diabetes mellitus, without long-term current use of insulin (HCC) On metformin 500 mg twice daily and glipizide 5 mg daily. Continue insulin administration via insulin calculator Class 3 severe obesity with body mass index (BMI) greater than or equal to 70 in adult Weight loss recommended as obesity complicates all aspects of care Cellulitis of abdominal wall. Improving. Patient picks her skin constantly. Change vancomycin and cefepime to Augmentin and continue doxycycline 100 mg twice daily Chronic back pain Patient is on oxycontin 15 mg every 12 hours On Zanaflex 8 mg at bedtime. Mood disorder On Prozac 20 mg daily Anemia of chronic disease Continue to monitor hemoglobin Ferrlecit 125 mg x 2 doses given. DVT Prophylaxis. Qualifying Pharmacologic Prophylaxis warfarin (COUMADIN) tablet 7.5 mg ONCE WARFARIN enoxaparin (LOVENOX) injection 40 mg 2 TIMES DAILY WARFARIN - PHARMACY-MANAGED THERAPY Daily Disposition. Anticipate discharge tomorrow Out of bed as tolerated today. Harriet Godinez MD Part of this note was dictated using voice recognition technology and may include unintended spelling errors. * Marlyn Marshall RN - 01/17/2025 3:45 AM EDT Patient denied second assessment due to requesting to sleep and wanted to wait until morning assessment 01/16/25 2326 Assessment Charting Type Reassessment (patient refused second assessment) * Marlyn Marshall RN - 01/16/2025 11:25 PM EDT Patient is refusing turns. Patient educated on the importance of wound prevention. Will try to encourage patient to turn. * Bernie Suarez [facility] - 01/16/2025 4:08 PM EDT Pharmacy Consult: Vancomycin S: Evangelist Nettles is a(n) 44 y.o. female admitted 01/13 with PNA and abdominal wall cellulitis. Allergies: Patient has no known allergies. Day 4 of pharmacy managed vancomycin therapy. Other antimicrobials include cefepime (day 4), doxycycline (day 4) . O: Temp Min: 97.2 ??F (36.2 ??C) Max: 98.5 ??F (36.9 ??C) Recent Labs 01/14/25 0641 01/15/25 0639 01/16/25 0442 WBC 8.9 7.3 6.2 BUN 16 17 22* CREATININE 1.14 1.20 1.44* Estimated Creatinine Clearance: 46.7 mL/min (A) (by C-G formula based on SCr of 1.44 mg/dL (H)). Recent Labs 01/14/25 1346 01/14/25 1835 01/15/25 0639 01/15/25 1323 VANCOAUC1 33.4 -- 41.4 -- VANCOAUC2 -- 35.7 -- 31.5 Recent Labs 01/13/25 0945 PROCLCTNIN 0.56* Recent Labs 01/13/25 0725 LACTA 1.5 I/O last 3 completed shifts: In: 3294.6 [P.O.:2340; I.V.:5; IV Piggyback:949.6] Out: 1300 [Urine:1300] I/O this shift: In: 110 [IV Piggyback:110] Out: - Height: 5' 6 (167.6 cm) Weight: (!) 511 lb (231.8 kg) Culture & Sensitivities: Results for orders placed or performed during the hospital encounter of 01/13/25 (from the past 2 weeks) [id number] A/B Collection Time: 01/13/25 7:30 AM Specimen: Nares; Swab Result Value Ref Range CORONAVIRUS [id number] Not Detected Not Detected Influenza A DNA Not Detected Not Detected Influenza B DNA Not Detected Not Detected BLOOD CULTURE (NO STAIN) Collection Time: 01/13/25 9:45 AM Specimen: Blood, Venous Result Value Ref Range Culture Result No Growth at 72 hours. BLOOD CULTURE (NO STAIN) Collection Time: 01/13/25 9:59 AM Specimen: Blood, Venous Result Value Ref Range Culture Result No Growth at 72 hours. STAPHYLOCOCCUS AUREUS SCREEN Collection Time: 01/13/25 5:36 PM Specimen: Nares; Swab Result Value Ref Range Staph aureus PCR Not Detected Not Detected MRSA PCR Not Detected Not Detected A/P: Physician orders and progress notes reviewed. Renal function: Scr trending up. Vancomycin Initiated therapy with 2000 mg (8.6 mg/kg) every 12 hours. This dosing regimen was estimated to result in a predicted AUCss of 297 mg??hr/L; Goal AUC is 400-600. AUC <400 noted; however patient had previously been established on 2000 mg q12h dosing duringadmission in 05/2024. AUC concentrations collected prior to the 4th dose resulted as 41.4 mcg/mL (01/15 0639) and 31.5 mcg/mL (01/15 1323). Patient's calculated kinetic parameters based off these concentrations at approximately steady state: - Ke = 0.0433 hr^-1 - Half-life = 16 hr - Cmax = 48.56 mcg/mL - Cmin = 31.5 mcg/mL - AUCss = 948 mg??hr/L Modified therapy to 2000 mg every 24 hours. This new dosing regimen is estimated to result in: - Peakss = 30.45 mcg/mL - Troughss = 11.75 mcg/mL - AUCss = 474 mg??hr/L; goal AUC 400-600 Will evaluate levels for AUC dosing on 01/18 between the 2nd and 3rd dose of this new regimen. Pharmacy will continue to follow patient for changes in renal function, efficacy, and signs of toxicity. Other labs: BMP daily. Thank you, Bernie Suarez [facility] PharmD 01/16/2025 4:03 PM * Bernie Suarez RP - 01/16/2025 4:01 PM EDT Pharmacy Consult: Warfarin HPI: Evangelist Nettles is a(n) 44 y.o. female admitted 01/13 with PNA and abdominal wall cellulitis. Allergies: Patient has no known allergies Indication for warfarin: Heterozygous FVL, hx DVT/PE, s/p IVC filter. INR Goal: 2.0 to 3.0 Warfarin therapy prior to admit: 7.5 mg daily. Warfarin managed outpatient by: outpatient physician's office - Dr. Ohara ([facility] [place]) - patient has home monitor. O: Recent Labs 01/14/25 0641 01/15/25 0639 01/16/25 0442 HGB 8.3* 8.0* 7.6* HCT 27.7* 26.9* 25.8* PLT 248 266 259 INR 1.99* 1.65* 1.90* Weight: (!) 511 lb (231.8 kg) Date INR Warfarin Dose Notes 01/13 4.25 HOLD 01/14 1.99 11.25 mg 01/15 1.65 7.5 mg 01/16 1.90 7.5 mg A/P: Physician orders and progress notes reviewed. Hgb/Hct are trending down. Ferrlecit X 1 today. Plts stable. Bleeding signs/symptoms noted: none. INR is 1.90 today Drug Interactions: doxycycline (01/13 - ) Will dose warfarin 7.5 mg today and continue to follow INR. May consider d/c enoxaparin once INR > 2. Thank you, Bernie Suarez RPH PharmD 01/16/2025 3:56 PM * Harriet Godinez MD - 01/16/2025 11:27 AM EDTAssociated Problem(s): Pneumonia of right lower lobe due to infectious organism Will continue to treat with broad-spectrum antibiotics including cefepime and doxycycline * Harriet Godinez MD - 01/16/2025 11:27 AM EDTAssociated Problem(s): Factor V Leiden Patient is on Coumadin. Pharmacy is managing Labs reviewed. INR is 1.90 today * Harriet Godinez MD - 01/16/2025 11:27 AM EDTAssociated Problem(s): Cellulitis of abdominal wall. Improving. Patient picks her skin constantly. Continue broad-spectrum antibiotics including vancomycin and cefepime for 1-2 more days. Continue local care Patient is advised to stop picking her skin. Vancomycin is a high risk medication which requires frequent monitoring with repeated Vanco level to minimize toxicity * Harriet Godinez MD - 01/16/2025 11:27 AM EDTAssociated Problem(s): Anemia of chronic disease Continue to monitor hemoglobin Ferrlecit 125 mg x 1 * Harriet Godinez MD - 01/16/2025 7:41 AM EDTAssociated Problem(s): Hypothyroidism Continue Synthroid 50 mcg daily * Harriet Godinez MD - 01/16/2025 7:41 AM EDTAssociated Problem(s): Hypertension On Norvasc 5 mg daily * Harriet Godinez MD - 01/16/2025 7:41 AM EDTAssociated Problem(s): Type 2 diabetes mellitus, without long-term current use of insulin (HCC) On metformin 500 mg twice daily and glipizide 5 mg daily. Continue insulin administration via insulin calculator * Harriet Godinez MD - 01/16/2025 7:41 AM EDTAssociated Problem(s): Class 3 severe obesity with body mass index (BMI) greater than or equal to 70 in adult Weight loss recommended as obesity complicates all aspects of care * Harriet Godinez MD - 01/16/2025 7:41 AM EDTAssociated Problem(s): Chronic back pain Patient is on oxycontin 15 mg every 12 hours On Zanaflex 8 mg at bedtime. * Harriet Godinez MD - 01/16/2025 7:41 AM EDTAssociated Problem(s): Mood disorder On Prozac 20 mg daily * Harriet Godinez MD - 01/16/2025 7:41 AM EDT Images from the original note were not included. Adult Progress Note Admit Date: 01/13/2025 LOS: 3 days HPI: Evangelist Nettles is a(n)44 y.o. female admitted with Pneumonia of right lower lobe due to infectious organism [J18.9]. Subjective: Seen today, patient said feeling better today. She does not have any new complaints Her abdominal wall redness has improved. There is no increased warmth or pain today. Scheduled Meds: amLODIPine 5 mg Oral Daily atorvastatin 40 mg Oral Nightly ceFEPIme (MAXIPIME) IVPB 2 g Intravenous 3 times per day doxycycline hyclate 100 mg Oral 2 times per day enoxaparin 40 mg Subcutaneous BID FLUoxetine 60 mg Oral Nightly glipiZIDE 5 mg Oral Daily WM Insulin Calculator (SEBD TEACHER) - FSBS (Correction Only) Input 1 Each MISCELLANEOUS QID WM And insulin aspart (NovoLOG) - Correction - Calculator 0-40 Units Subcutaneous QID WM LEVOthyroxine 75 mcg Oral DAILY EARLY AM metFORMIN 500 mg Oral BID WM miconazole Topical BID mirabegron 50 mg Oral Daily oxyCODONE 30 mg Oral 2 times per day pneumococcal 20-valent conjugate vaccine 0.5 mL Intramuscular ONCE propranoloL 20 mg Oral *Q12H QUEtiapine 100 mg Oral BID rOPINIRole 2 mg Oral TID tiZANidine 8 mg Oral Nightly torsemide 20 mg Oral Daily traMADoL 50-100 mg Oral QID vancomycin (VANCOCIN) IVPB (Orderable) 2,000 mg Intravenous *Q24H warfarin - pharmacy-managed therapy MISCELLANEOUS Daily Objective: BP 112/61 (BP Location: Left arm, Patient Position: Semi Fowlers) Pulse 71 Temp 98.3 ??F (36.8 ??C) (Oral) Resp 16 Ht 5' 6 (1.676 m) Wt (!) 511 lb (231.8 kg) LMP 12/15/2024 SpO2 95% BMI 82.48 kg/m?? Patient not in acute distress. She is well-appearing Neck supple, no JVD. Lungs CTA. Heart regular S1, S2 are normal. No murmur. Abd soft, NT, ND, bowel sounds are present. The erythema of the abdominal wall has improved significantly. No increased warmth or tenderness. Ext nonpitting edema of the lower extremities. No calf pains. Neuro AAO X3. No focal deficits. Labs: CBC: Lab Results Component Value Date WBC 6.2 01/16/2025 RBC 3.61 (L) 01/16/2025 HGB 7.6 (L) 01/16/2025 HCT 25.8 (L) 01/16/2025 MCV 71.5 (L) 01/16/2025 MCHC 29.5 (L) 01/16/2025 PLT 259 01/16/2025 BMP: Lab Results Component Value Date NA 132 (L) 01/16/2025 K 3.8 01/16/2025 CL 99 01/16/2025 CO2 21 (L) 01/16/2025 BUN 22 (H) 01/16/2025 CREATININE 1.44 (H) 01/16/2025 CALCIUM 7.1 (L) 01/16/2025 GLU 256 (H) 01/16/2025 Coagulation: Lab Results Component Value Date INR 1.90 (H) 01/16/2025 Intake/Output Summary (Last 24 hours) at 01/16/2025 0741 Last data filed at 01/16/2025 0719 Gross per 24 hour Intake 2715.57 ml Output 1300 ml Net 1415.57 ml Accucheck Results: Radiology results: No results found. Active Hospital Problems Diagnosis *Pneumonia of right lower lobe due to infectious organism Mood disorder Chronic back pain Cellulitis of abdominal wall. Improving. Patient picks her skin constantly. Factor V Leiden Class 3 severe obesity with body mass index (BMI) greater than or equal to 70 in adult Type 2 diabetes mellitus, without long-term current use of insulin (HCC) Hypertension Hypothyroidism Assessment/Plan Assessment & Plan Pneumonia of right lower lobe due to infectious organism Will continue to treat with broad-spectrum antibiotics including cefepime and doxycycline Factor V Leiden Patient is on Coumadin. Pharmacy is managing Labs reviewed. INR is 1.90 today Hypothyroidism Continue Synthroid 50 mcg daily Hypertension On Norvasc 5 mg daily Type 2 diabetes mellitus, without long-term current use of insulin (HCC) On metformin 500 mg twice daily and glipizide 5 mg daily. Continue insulin administration via insulin calculator Class 3 severe obesity with body mass index (BMI) greater than or equal to 70 in adult Weight loss recommended as obesity complicates all aspects of care Cellulitis of abdominal wall. Improving. Patient picks her skin constantly. Continue broad-spectrum antibiotics including vancomycin and cefepime for 1-2 more days. Continue local care Patient is advised to stop picking her skin. Vancomycin is a high risk medication which requires frequent monitoring with repeated Vanco level to minimize toxicity Chronic back pain Patient is on oxycontin 15 mg every 12 hours On Zanaflex 8 mg at bedtime. Mood disorder On Prozac 20 mg daily Anemia of chronic disease Continue to monitor hemoglobin Ferrlecit 125 mg x 1 DVT Prophylaxis. Qualifying Pharmacologic Prophylaxis enoxaparin (LOVENOX) injection 40 mg 2 TIMES DAILY WARFARIN - PHARMACY-MANAGED THERAPY Daily Disposition. Out of bed as tolerated. Continue hospitalization for IV antibiotics. Harriet Godniez MD Part of this note was dictated using voice recognition technology and may include unintended spelling errors. * Bernie Suarez [facility] - 01/15/2025 4:43 PM EDT Pharmacy Consult: Warfarin HPI: Evangelist Nettles is a(n) 44 y.o. female admitted 01/13 with PNA and abdominal wall cellulitis. Allergies: Patient has no known allergies Indication for warfarin: Heterozygous FVL, hx DVT/PE, s/p IVC filter. INR Goal: 2.0 to 3.0 Warfarin therapy prior to admit: 7.5 mg daily. Warfarin managed outpatient by: outpatient physician's office - Dr. Ohara ([facility] [place]) - patient has home monitor. O: Recent Labs 01/13/25 0714 01/14/25 0641 01/15/25 0639 HGB 10.0* 8.3* 8.0* HCT 33.5* 27.7* 26.9* PLT 345 248 266 INR 4.25* 1.99* 1.65* Weight: (!) 511 lb (231.8 kg) Date INR Warfarin Dose Notes 01/13 4.25 HOLD 01/14 1.99 11.25 mg 01/15 1.65 7.5 mg A/P: Physician orders and progress notes reviewed. Hgb/Hct are trending down. Plts stable. Bleeding signs/symptoms noted: none. INR is 1.65 today Drug Interactions: doxycycline (01/13 - ) Will dose warfarin 7.5 mg today and continue to follow INR. Thank you, Bernie Suarez [facility] PharmD 01/15/2025 4:38 PM * Bernie Suarez [facility] - 01/15/2025 4:16 PM EDT Pharmacy Consult: Vancomycin S: Evangelist Nettles is a(n) 44 y.o. female admitted 01/13 with PNA and abdominal wall cellulitis. Allergies: Patient has no known allergies. Day 3 of pharmacy managed vancomycin therapy. Other antimicrobials include cefepime (day 3), doxycycline (day 3) . O: Temp Min: 97.7 ??F (36.5 ??C) Max: 99 ??F (37.2 ??C) Recent Labs 01/13/25 0714 01/14/25 0641 01/15/25 0639 WBC 24.9* 8.9 7.3 BUN 15 16 17 CREATININE 1.08 1.14 1.20 Estimated Creatinine Clearance: 56 mL/min (by C-G formula based on SCr of 1.2 mg/dL). Recent Labs 01/14/25 1346 01/14/25 1835 01/15/25 0639 01/15/25 1323 VANCOAUC1 33.4 -- 41.4 -- VANCOAUC2 -- 35.7 -- 31.5 Recent Labs 01/13/25 0945 PROCLCTNIN 0.56* Recent Labs 01/13/25 0725 LACTA 1.5 I/O last 3 completed shifts: In: 2716.4 [P.O.:1190; I.V.:105.9; IV Piggyback:1420.5] Out: 2500 [Urine:2500] No intake/output data recorded. Height: 5' 6 (167.6 cm) Weight: (!) 511 lb (231.8 kg) Culture & Sensitivities: Results for orders placed or performed during the hospital encounter of 01/13/25 (from the past 2 weeks) [id number] A/B Collection Time: 01/13/25 7:30 AM Specimen: Nares; Swab Result Value Ref Range CORONAVIRUS [id number] Not Detected Not Detected Influenza A DNA Not Detected Not Detected Influenza B DNA Not Detected Not Detected BLOOD CULTURE (NO STAIN) Collection Time: 01/13/25 9:45 AM Specimen: Blood, Venous Result Value Ref Range Culture Result No Growth at 48 hours. BLOOD CULTURE (NO STAIN) Collection Time: 01/13/25 9:59 AM Specimen: Blood, Venous Result Value Ref Range Culture Result No Growth at 48 hours. STAPHYLOCOCCUS AUREUS SCREEN Collection Time: 01/13/25 5:36 PM Specimen: Nares; Swab Result Value Ref Range Staph aureus PCR Not Detected Not Detected MRSA PCR Not Detected Not Detected A/P: Physician orders and progress notes reviewed. Renal function: Scr trending up. Vancomycin Initiated therapy with 2000 mg (~9 mg/kg) every 12 hours. This dosing regimen was estimated to result in a predicted AUCss of 297 mg??hr/L; Goal AUC is 400-600. AUC <400 noted; however patient had previously been established on 2000 mg q12h dosing duringadmission in 05/2024. AUC concentrations collected prior to the 4th dose resulted as 41.4 mcg/mL (01/15 0639) and 31.5 mcg/mL (01/15 1323). Patient's calculated kinetic parameters based off these concentrations at approximately steady state: - Ke = 0.0433 hr^-1 - Half-life = 16 hr - Cmax = 48.56 mcg/mL - Cmin = 31.5 mcg/mL - AUCss = 948 mg??hr/L Will modify therapy to 2000 mg every 24 hours. This new dosing regimen is estimated to result in: - Peakss = 30.45 mcg/mL - Troughss = 11.75 mcg/mL - AUCss = 474 mg??hr/L; goal AUC 400-600 Will evaluate levels for AUC dosing on 01/17 between the 2nd and 3rd dose of this new regimen. Pharmacy will continue to follow patient for changes in renal function, efficacy, and signs of toxicity. Other labs: BMP daily. Thank you, Bernie Suarez [facility] PharmD 01/15/2025 4:15 PM * Harriet Godinez MD - 01/15/2025 3:26 PM EDTAssociated Problem(s): Pneumonia of right lower lobe due to infectious organism Will continue to treat with broad-spectrum antibiotics including cefepime and doxycycline Monitor WBCs. * Harriet Godinez MD - 01/15/2025 3:26 PM EDTAssociated Problem(s): Factor V Leiden Patient is on Coumadin. Pharmacy is managing * Harriet Godinez MD - 01/15/2025 3:26 PM EDTAssociated Problem(s): Cellulitis of abdominal wall. Improving. Patient picks her skin constantly. Continue broad-spectrum antibiotics including vancomycin and cefepime Continue local care Vancomycin is a high risk medication which requires frequent monitoring with repeated Vanco level to minimize toxicity Patient is advised to stop picking her skin * Harriet Godinez MD - 01/15/2025 9:56 AM EDTAssociated Problem(s): Hypothyroidism Continue Synthroid 50 mcg daily * Harriet Godniez MD - 01/15/2025 9:56 AM EDTAssociated Problem(s): Hypertension On Norvasc 5 mg daily * Harriet Godinez MD - 01/15/2025 9:56 AM EDTAssociated Problem(s): Type 2 diabetes mellitus, without long-term current use of insulin (HCC) On metformin 500 mg twice daily and glipizide 5 mg daily. Continue insulin administration via insulin calculator * Harriet Godinez MD - 01/15/2025 9:56 AM EDTAssociated Problem(s): Class 3 severe obesity with body mass index (BMI) greater than or equal to 70 in adult Weight loss recommended as obesity complicates all aspects of care * Harriet Godinez MD - 01/15/2025 9:56 AM EDTAssociated Problem(s): Chronic back pain Patient is on oxycontin 15 mg every 12 hours On Zanaflex 8 mg at bedtime. * Harriet Godinez MD - 01/15/2025 9:56 AM EDTAssociated Problem(s): Mood disorder On Prozac 20 mg daily * Harriet Godinez MD - 01/15/2025 9:56 AM EDT Images from the original note were not included. Adult Progress Note Admit Date: 01/13/2025 LOS: 2 days HPI: Evangelist Nettles is a(n)44 y.o. female admitted with Pneumonia of right lower lobe due to infectious organism [J18.9]. Subjective: Seen today, patient states feeling somewhat better. She denies having any new complaints except forheadache No major events reported by nursing. Scheduled Meds: amLODIPine 5 mg Oral Daily atorvastatin 40 mg Oral Nightly ceFEPIme (MAXIPIME) IVPB 2 g Intravenous 3 times per day doxycycline hyclate 100 mg Oral 2 times per day enoxaparin 40 mg Subcutaneous BID FLUoxetine 60 mg Oral Nightly glipiZIDE 5 mg Oral Daily WM Insulin Calculator (SEBD TEACHER) - FSBS (Correction Only) Input 1 Each MISCELLANEOUS QID WM And insulin aspart (NovoLOG) - Correction - Calculator 0-40 Units Subcutaneous QID WM LEVOthyroxine 75 mcg Oral DAILY EARLY AM [START ON 01/16/2025] metFORMIN 500 mg Oral BID WM miconazole Topical BID mirabegron 50 mg Oral Daily oxyCODONE 30 mg Oral BID pneumococcal 20-valent conjugate vaccine 0.5 mL Intramuscular ONCE propranoloL 20 mg Oral *Q12H QUEtiapine 100 mg Oral BID rOPINIRole 2 mg Oral TID tiZANidine 8 mg Oral Nightly torsemide 20 mg Oral Daily traMADoL 50-100 mg Oral QID vancomycin (VANCOCIN) IVPB (Orderable) 2,000 mg Intravenous *Q12H warfarin - pharmacy-managed therapy MISCELLANEOUS Daily Objective: BP 151/65 (BP Location: Left arm, Patient Position: Sitting) Pulse 81 Temp 98 ??F (36.7 ??C) (Oral) Resp 14 Ht 5' 6 (1.676 m) Wt (!) 511 lb (231.8 kg) LMP 12/15/2024 SpO2 99% BMI 82.48 kg/m?? Patient not in acute distress. Neck supple, no JVD. Lungs decreased breath sounds bilaterally. Heart regular S1, S2 are normal. No murmur. Abd soft, NT, ND, bowel sounds are present. Abdominal wall is less erythematous, less warm and lesstender to touch. Ext nonpitting edema of the legs. Neuro AAO X3. No focal deficits. Labs: CBC: Lab Results Component Value Date WBC 7.3 01/15/2025 RBC 3.75 (L) 01/15/2025 HGB 8.0 (L) 01/15/2025 HCT 26.9 (L) 01/15/2025 MCV 71.7 (L) 01/15/2025 MCHC 29.7 (L) 01/15/2025 PLT 266 01/15/2025 BMP: Lab Results Component Value Date NA 134 (L) 01/15/2025 K 3.9 01/15/2025 CL 100 01/15/2025 CO2 22 01/15/2025 BUN 17 01/15/2025 CREATININE 1.20 01/15/2025 CALCIUM 7.3 (L) 01/15/2025 GLU 177 (H) 01/15/2025 Coagulation: Lab Results Component Value Date INR 1.65 (H) 01/15/2025 Intake/Output Summary (Last 24 hours) at 01/15/2025 0956 Last data filed at 01/15/2025 0932 Gross per 24 hour Intake 2818.58 ml Output 3600 ml Net -781.42 ml Accucheck Results: Radiology results: No results found. Active Hospital Problems Diagnosis *Pneumonia of right lower lobe due to infectious organism Mood disorder Chronic back pain Cellulitis of abdominal wall Factor V Leiden Class 3 severe obesity with body mass index (BMI) greater than or equal to 70 in adult Type 2 diabetes mellitus, without long-term current use of insulin (HCC) Hypertension Hypothyroidism Assessment/Plan Assessment & Plan Pneumonia of right lower lobe due to infectious organism Will continue to treat with broad-spectrum antibiotics including cefepime and doxycycline Monitor WBCs. Factor V Leiden Patient is on Coumadin. Pharmacy is managing Hypothyroidism Continue Synthroid 50 mcg daily Hypertension On Norvasc 5 mg daily Type 2 diabetes mellitus, without long-term current use of insulin (HCC) On metformin 500 mg twice daily and glipizide 5 mg daily. Continue insulin administration via insulin calculator Class 3 severe obesity with body mass index (BMI) greater than or equal to 70 in adult Weight loss recommended as obesity complicates all aspects of care Cellulitis of abdominal wall. Improving. Patient picks her skin constantly. Continue broad-spectrum antibiotics including vancomycin and cefepime Continue local care Vancomycin is a high risk medication which requires frequent monitoring with repeated Vanco level to minimize toxicity Patient is advised to stop picking her skin Chronic back pain Patient is on oxycontin 15 mg every 12 hours On Zanaflex 8 mg at bedtime. Mood disorder On Prozac 20 mg daily DVT Prophylaxis. Qualifying Pharmacologic Prophylaxis enoxaparin (LOVENOX) injection 40 mg 2 TIMES DAILY WARFARIN - PHARMACY-MANAGED THERAPY Daily Disposition. Continue to monitor as inpatient for IV antibiotics Harriet Godinez MD Part of this note was dictated using voice recognition technology and may include unintended spelling errors. * Virginia Jackson, ACID LEVELER - 01/14/2025 3:24 PM EDT 01/14/25 1517 Discharge Planning Evaluation Completed by CC/SW Yes ED Screening Completed Initial screening complete, no post-acute needs identified at this time thatrequire a discharge planning evaluation. Team also has not received any request from patient, patient's sales representative door to door, physician, nor health care team for d/c planning eval Referral Source Chart review Does patient meet high risk triggers? Readmitted within last 30 days;More than 2 ER visits in 30 days;Exacerbation of chronic illness;History of non- compliance/nonadherence to medical plan;Multiple acute diagnosis;Multisystem failure IP Mental Health Referral Pending No Who you interviewed In person interview with patient Mental Status Alert and oriented Decision Maker Patient Who does pt identify as their caregiver/support person who will be their active partner in the dc planning process Pt identified caregiver/support person for dc planning process Caregiver Name Chandra Caregiver Does patient need assistant warehouse manager? No Activities of Daily Living Prior to Admission Needs assistance with Homemaking;Needs assistance with mobility;Needs assistance with ADLS DME Used at Home Wheelchair Wheelchair type Power Patient's Living Arrangments Prior to Admission? Apartment With Other(s) Apartment With Other(s) Children Support Systems Children Is PCP listed on facesheet correct? Yes Quality of Support System Adequate Identified psychosocial/financial issues Non-compliance/Non-adherence to treatment plan Follow Up Assigned To: Referral to Social work not necessary Social Work already completing dc planning assessment APS/CPS Report Made No Anticipated post-acute care needs Home with OP Follow Up Discussed discharge plans with Patient/Family/Caregiver/Support Person Yes, Discussed with patient Discussed discharge plans with Care Team at [facility] Yes, with nurse in attendance Patient's goals for recovery Return to Prior Level of Functioning Actual Discharge Plan 01.14.25 SW Initial: SW met with patient at bedside, patient is alert and oriented. Patient lives with her daughter, needs assistance with all ADL's, no HH, uses a wheelchair electric (batteries are broken though), and has some issues affording necessities. Recently was in [facility] and was provided with Patient Toolkit and a jatinder application was put through to help her fix her vehicle. Patient's PCP is Dr. Ohara and Pharmacy is [facility] in [place]. Patient's family will transport, if possible. SDOH complete. SW to follow. * Rober Potter [facility] - 01/14/2025 2:56 PM EDT Pharmacy Consult: Warfarin HPI: Evangelist Nettles is a(n) 44 y.o. female admitted for PNA. Indication for warfarin: Indication for warfarin: Factor V Leiden, hx DVT/PE, s/p IVC filter INR Goal: 2.0 to 3.0 Warfarin therapy prior to admit: 7.5 mg daily. Warfarin managed outpatient by: outpatient physician's office - Dr. Ohara ([facility] [place]) - patient has home monitor. O: Most Recent Labs: Recent Labs 01/13/25 0714 01/14/25 0641 HGB 10.0* 8.3* HCT 33.5* 27.7* PLT 345 248 INR 4.25* 1.99* Weight: (!) 511 lb (231.8 kg) A/P: Physician orders and progress notes reviewed. Date INR Warfarin Dose Notes 01/13 4.25 HOLD 01/14 1.99 Hgb/Hct are declining. Bleeding signs/symptoms noted: none. INR is 1.99 today; increasing rapidly Drug Interactions: no new interactions Will dose warfarin 11.25 mg today and continue to follow INR. Rober Potter, Pharm.D. * Rober Potter [facility] - 01/14/2025 2:31 PM EDT S: Evangelist Nettles is a(n) 44 y.o. female with diagnosis of pneumonia. Allergies: Patient has no known allergies. Day 2 of pharmacy managed vancomycin therapy. Other antimicrobials include cefepime (day 2), doxycycline (day 2). O: Temp Min: 97.8 ??F (36.6 ??C) Max: 101.1 ??F (38.4 ??C) Recent Labs 01/13/25 0714 01/14/25 0641 WBC 24.9* 8.9 BUN 15 16 CREATININE 1.08 1.14 Estimated Creatinine Clearance: 59 mL/min (by C-G formula based on SCr of 1.14 mg/dL). Recent Labs 01/13/25 0945 PROCLCTNIN 0.56* Recent Labs 01/13/25 0725 LACTA 1.5 I/O last 3 completed shifts: In: 1018 [P.O.:360; I.V.:46.3; IV Piggyback:611.7] Out: - I/O this shift: In: 102.2 [I.V.:52.2; IV Piggyback:50] Out: 2300 [Urine:2300] Height: 5' 6 (167.6 cm) Weight: (!) 511 lb (231.8 kg) Culture & Sensitivities: Results for orders placed or performed during the hospital encounter of 01/13/25 (from the past 2 weeks) [id number] A/B Collection Time: 01/13/25 7:30 AM Specimen: Nares; Swab Result Value Ref Range CORONAVIRUS [id number] Not Detected Not Detected Influenza A DNA Not Detected Not Detected Influenza B DNA Not Detected Not Detected BLOOD CULTURE (NO STAIN) Collection Time: 01/13/25 9:45 AM Specimen: Blood, Venous Result Value Ref Range Culture Result Blood culture received for processing in the laboratory. Positives will be reported immediately. BLOOD CULTURE (NO STAIN) Collection Time: 01/13/25 9:59 AM Specimen: Blood, Venous Result Value Ref Range Culture Result Blood culture received for processing in the laboratory. Positives will be reported immediately. STAPHYLOCOCCUS AUREUS SCREEN Collection Time: 01/13/25 5:36 PM Specimen: Nares; Swab Result Value Ref Range Staph aureus PCR Not Detected Not Detected MRSA PCR Not Detected Not Detected A/P: Physician orders and progress notes reviewed. Patient's renal function is stable. Vancomycin Initiated vancomycin therapy with 2000 mg (~9 mg/kg) every 12 hours. This dosing regimen was estimated to result in a predicted AUCss of 297 mg??hr/L; Goal AUC is 400-600. AUC <400 noted; however patient had previously been established on 2000 mg q12h dosing duringadmission in 05/2024. Will continue vancomycin 2000 mg every 12 hours and collect AUC levels today between 3rd and 4th doses. Cefepime Will increase cefepime to 2 g EI every 8 hours for CrCl >60 mL/min and elevated BMI. Also concern for nosocomial pneumonia with recent hospitalization. Pharmacy will continue to follow patient for changes in renal function, efficacy, and signs of toxicity. Other labs: none at this time. Rober Potter, Pharm.D. * Harriet Godinez MD - 01/14/2025 2:24 PM EDTAssociated Problem(s): Pneumonia of right lower lobe due to infectious organism Will continue to treat with broad-spectrum antibiotics including cefepime and doxycycline Blood cultures have been sent. Will follow the results * Harriet Godinez MD - 01/14/2025 2:24 PM EDTAssociated Problem(s): Hypothyroidism Continue Synthroid 50 mcg daily * Harriet Godinez MD - 01/14/2025 2:24 PM EDTAssociated Problem(s): Hypertension On Norvasc 5 mg daily * Harriet Godinez MD - 01/14/2025 2:24 PM EDTAssociated Problem(s): Type 2 diabetes mellitus, without long-term current use of insulin (HCC) On metformin 500 mg twice daily and glipizide 5 mg daily. Continue insulin administration via insulin calculator * Harriet Godinez MD - 01/14/2025 2:24 PM EDTAssociated Problem(s): Cellulitis of abdominal wall. Improving. Patient picks her skin constantly. Continue broad-spectrum antibiotics including vancomycin and cefepime Continue local care Vancomycin is a high risk medication which requires frequent monitoring with repeated Vanco level to minimize toxicity * Harriet Godinez MD - 01/14/2025 2:24 PM EDTAssociated Problem(s): Chronic back pain Patient is on oxycontin 15 mg every 12 hours On Zanaflex 8 mg at bedtime. * Harriet Godinez MD - 01/14/2025 9:10 AM EDTAssociated Problem(s): Factor V Leiden INR is therapeutic. Pharmacy to manage Coumadin. Discussed with the pharmacist * Harriet Godinez MD - 01/14/2025 9:10 AM EDTAssociated Problem(s): Class 3 severe obesity with body mass index (BMI) greater than or equal to 70 in adult Weight loss recommended as obesity complicates all aspects of care * Harriet Godinez MD - 01/14/2025 9:10 AM EDTAssociated Problem(s): Mood disorder On Prozac 20 mg daily * Harriet Godinez MD - 01/14/2025 9:09 AM EDT Images from the original note were not included. Adult Progress Note Admit Date: 01/13/2025 LOS: 1 day HPI: Evangelist Nettles is a(n)44 y.o. female admitted with Pneumonia of right lower lobe and abdominal wall cellulitis. Subjective: Seen today, patient said feeling better today. She denies having any new complaints except for persistent erythema over the abdominal wall, right side Scheduled Meds: amLODIPine 5 mg Oral Daily atorvastatin 40 mg Oral Nightly ceFEPIme (MAXIPIME) IVPB 1 g Intravenous 3 times per day doxycycline hyclate 100 mg Oral 2 times per day enoxaparin 40 mg Subcutaneous BID FLUoxetine 60 mg Oral Nightly glipiZIDE 5 mg Oral Daily WM Insulin Calculator (SEBD TEACHER) - FSBS (Correction Only) Input 1 Each MISCELLANEOUS QID WM And insulin aspart (NovoLOG) - Correction - Calculator 0-40 Units Subcutaneous QID WM LEVOthyroxine 75 mcg Oral DAILY EARLY AM [START ON 01/16/2025] metFORMIN 500 mg Oral BID WM miconazole Topical BID mirabegron 50 mg Oral Daily oxyCODONE 30 mg Oral BID pneumococcal 20-valent conjugate vaccine 0.5 mL Intramuscular ONCE propranoloL 20 mg Oral *Q12H QUEtiapine 100 mg Oral BID rOPINIRole 2 mg Oral TID tiZANidine 8 mg Oral Nightly torsemide 20 mg Oral Daily traMADoL 50-100 mg Oral QID vancomycin (VANCOCIN) IVPB (Orderable) 2,000 mg Intravenous *Q12H warfarin - pharmacy-managed therapy MISCELLANEOUS Daily Objective: BP (!) 113/36 (BP Location: Left arm, Patient Position: Lying right side) Pulse 74 Temp 97.8 ??F (36.6 ??C) (Oral) Resp 18 Ht 5' 6 (1.676 m) Wt (!) 511 lb (231.8 kg) LMP 12/15/2024 SpO2 96% BMI 82.48 kg/m?? Patient not in acute distress. Neck supple, no JVD. Lungs CTA. Heart regular S1, S2 are normal. No murmur. Abd soft, NT, ND, bowel sounds are present. Ext nonpitting edema of the lower extremities Neuro AAO X3. No focal deficits. Skin significant erythema associated with increased warmth over the right side of the abdominal wall. Labs: CBC: Lab Results Component Value Date WBC 8.9 01/14/2025 RBC 3.88 (L) 01/14/2025 HGB 8.3 (L) 01/14/2025 HCT 27.7 (L) 01/14/2025 MCV 71.4 (L) 01/14/2025 MCHC 30.0 (L) 01/14/2025 PLT 248 01/14/2025 BMP: Lab Results Component Value Date NA 136 01/14/2025 K 3.9 01/14/2025 CL 103 01/14/2025 CO2 21 (L) 01/14/2025 BUN 16 01/14/2025 CREATININE 1.14 01/14/2025 CALCIUM 7.3 (L) 01/14/2025 GLU 181 (H) 01/14/2025 Coagulation: Lab Results Component Value Date INR 1.99 (H) 01/14/2025 Intake/Output Summary (Last 24 hours) at 01/14/2025 0909 Last data filed at 01/14/2025 0839 Gross per 24 hour Intake 1018.01 ml Output 1200 ml Net -181.99 ml Accucheck Results: Radiology results: No results found. Active Hospital Problems Diagnosis *Pneumonia of right lower lobe due to infectious organism Mood disorder Chronic back pain Cellulitis of abdominal wall Factor V Leiden Class 3 severe obesity with body mass index (BMI) greater than or equal to 70 in adult Type 2 diabetes mellitus, without long-term current use of insulin (HCC) Hypertension Hypothyroidism Assessment/Plan Assessment & Plan Pneumonia of right lower lobe due to infectious organism Will continue to treat with broad-spectrum antibiotics including cefepime and doxycycline Blood cultures have been sent. Will follow the results Factor V Leiden INR is therapeutic. Pharmacy to manage Coumadin. Discussed with the pharmacist Hypothyroidism Continue Synthroid 50 mcg daily Hypertension On Norvasc 5 mg daily Type 2 diabetes mellitus, without long-term current use of insulin (HCC) On metformin 500 mg twice daily and glipizide 5 mg daily. Continue insulin administration via insulin calculator Class 3 severe obesity with body mass index (BMI) greater than or equal to 70 in adult Weight loss recommended as obesity complicates all aspects of care Cellulitis of abdominal wall Continue broad-spectrum antibiotics including vancomycin and cefepime Continue local care Vancomycin is a high risk medication which requires frequent monitoring with repeated Vanco level to minimize toxicity Chronic back pain Patient is on oxycontin 15 mg every 12 hours On Zanaflex 8 mg at bedtime. Mood disorder On Prozac 20 mg daily DVT Prophylaxis. Qualifying Pharmacologic Prophylaxis enoxaparin (LOVENOX) injection 40 mg 2 TIMES DAILY WARFARIN - PHARMACY-MANAGED THERAPY Daily Disposition. Continue to monitor as inpatient for IV antibiotics Harriet Godinez MD Part of this note was dictated using voice recognition technology and may include unintended spelling errors. * Mahsa Gonzales RN - 01/13/2025 5:37 PM EDT Patient refusing torsemide states its took late in the day, I can't be pissing on myself on night. Patient in room crying and asking for her oxy, message sent to . * Harriet Godinez MD - 01/13/2025 5:24 PM EDTAssociated Problem(s): Pneumonia of right lower lobe due to infectious organism Will treat with broad-spectrum antibiotics including vancomycin, cefepime given recent hospitalization Add doxycycline 100 mg twice daily to cover for atypicals Blood cultures have been sent. Will follow the results * Harriet Godinez MD - 01/13/2025 5:24 PM EDTAssociated Problem(s): Factor V Leiden INR is therapeutic. Pharmacy to manage Coumadin. Discussed with the pharmacist * Harriet Godinez MD - 01/13/2025 5:24 PM EDTAssociated Problem(s): Hypothyroidism Resume Synthroid 50 mcg daily * Harriet Godinez MD - 01/13/2025 5:24 PM EDTAssociated Problem(s): Hypertension Resume Norvasc 5 mg daily * Harriet Godinez MD - 01/13/2025 5:24 PM EDTAssociated Problem(s): Type 2 diabetes mellitus, without long-term current use of insulin (HCC) On metformin 500 mg twice daily and glipizide 5 mg daily. Start insulin administration via insulin calculator * Harriet Godinez MD - 01/13/2025 5:24 PM EDTAssociated Problem(s): Class 3 severe obesity with body mass index (BMI) greater than or equal to 70 in adult Weight loss recommended as obesity complicates all aspects of care * Harriet Godinez MD - 01/13/2025 5:24 PM EDTAssociated Problem(s): Cellulitis of abdominal wall. Improving. Patient picks her skin constantly. Continue broad-spectrum antibiotics including vancomycin, cefepime as noted above * Harriet Godinez MD - 01/13/2025 5:24 PM EDTAssociated Problem(s): Chronic back pain Resume home meds including oxycontin 15 mg every 12 hours And Zanaflex 8 mg at bedtime. * Harriet Godinez MD - 01/13/2025 5:24 PM EDTAssociated Problem(s): Mood disorder On Prozac 20 mg daily * Alexia Cline [facility] - 01/13/2025 2:12 PM EDT Pharmacy Consult: Warfarin HPI: Evangelist Nettles is a(n) 44 y.o. female admitted for PNA. Indication for warfarin: Indication for warfarin: Factor V Leiden, hx DVT/PE, s/p IVC filter INR Goal: 2.0 to 3.0 Warfarin therapy prior to admit: 7.5 mg daily. Warfarin managed outpatient by: outpatient physician's office - Dr. Ohara ([facility] [place]) - patient has home monitor. O: Most Recent Labs: Recent Labs 01/13/25 0714 HGB 10.0* HCT 33.5* PLT 345 INR 4.25* Weight: (!) 511 lb (231.8 kg) A/P: Physician orders and progress notes reviewed. Date INR Warfarin Dose Notes 01/13 4.25 HOLD Hgb/Hct are stable. Bleeding signs/symptoms noted: none. INR is 4.25 today; Drug Interactions: cefepime can increase INR Will hold warfarin today and continue to follow INR. Alexia Cline, PharmD, BCPS * Lesly Darling, AudraD - 01/13/2025 11:17 AM EDT HPI: Evangelist Nettles is a(n) 44 y.o. female admitted 01/13 with SOB. Admission diagnosis include: sepsis due to pneumonia. Pharmacy consulted to manage vancomycin therapy. Other antimicrobials include cefepime. Allergies: Patient has no known allergies. O: Temp Min: 99.4 ??F (37.4 ??C) Max: 99.4 ??F (37.4 ??C) Recent Labs 01/13/25 0714 WBC 24.9* BUN 15 CREATININE 1.08 Recent Labs 01/13/25 0945 PROCLCTNIN 0.56* Recent Labs 01/13/25 0725 LACTA 1.5 Height: 5' 6 (167.6 cm) Weight: (!) 511 lb (231.8 kg) Culture & Sensitivities: 01/13 Blood Cx (x2): in process 01/13 COVID: not detected 01/13 staph swab: ordered Patient's initial estimated kinetic parameters based on AUC kinetics: - CrCl (AdjBW) = 134.6 mL/min - Ke = 0.1161 hr^-1 - Half-life = 5.97 hr A/P: Physician orders and progress notes reviewed. Patient???s renal function is stable, at baseline (Scr 0.9-1.1) Vancomycin dosing: - Will initiate vancomycin therapy with a 2000 mg (~8.6 mg/kg) loading dose, followed by a maintenance dose of 2000 mg (~8.6 mg/kg) every 12 hours. - Estimated AUCss of 297 mg hr/L; Goal AUC is 400-600. AUC <400 noted; however patient had previously been established on 2000 mg q12h dosing during admission in 05/2024. - Will check levels on 01/14 between the 3rd and 4th dose. - BMP daily x 3 ordered Pharmacy will follow patient for changes in renal function, efficacy, and signs of toxicity. Lesly Darling PharmD PGY1 Erp Analyst documented in this encounter H&P Notes * Harriet Godinez MD - 01/13/2025 1:43 PM EDT Images from the original note were not included. History and Physical Name: Evangelist Nettles : 1980 AGE: 44 y.o. PCP: Miguel Angel Ohara MD Admitting Physician: Harriet Godinez MD Date of Admit: 01/13/2025 Chief Complaint: Chief Complaint Patient presents with Shortness of Breath Short of breath, feels like she can't take a deep breath. Started at about 1am. Hx blood clots. 99%RA History of Present Illness: Evangelist Nettles is a 44 y.o. female with medical history significant for hypertension, hyperlipidemia, diabetes, hypothyroidism, morbid obesity, factor V Leiden, AURELIA. Patient presented to the emergencyroom complaining of shortness of breath and chills. Patient reports that she started having shortness of breath last night and this was associated with chills but no documented fever. Patient reportsthe symptoms persisted throughout the night therefore this morning she decided to come to the emergency room for evaluation. Workup in the ED shows significant leukocytosis with WBC of 24,000. Chest x-ray shows evidence of right lower lobe pneumonia decision was made to admit her to the hospital for further management. Patient was recently admitted to the hospital and was treated for cellulitis and superficial venous thrombosis of the lower extremities.. Past Medical History: Diagnosis Date Anemia Anxiety Chronic kidney disease Diabetes mellitus (HCC) Eczema Factor V Leiden Herniation of intervertebral disc between L5 and S1 Hypertension AURELIA (obstructive sleep apnea) uses CPAP Thyroid disease Past Surgical History: Procedure Laterality Date ABDOMEN SURGERY lap band BACK SURGERY SECTION IR IVC FILTER PLACEMENT IR PICC INSERTION EQUAL OR > 5 YEARS 12/15/2019 IR PICC INSERTION EQUAL OR > 5 YEARS 12/15/2019 Evonne Jewell PA-C EDG IR UMBILICAL HERNIA REPAIR 2007 No Known Allergies Social History Socioeconomic History Marital status: Spouse name: None Number of children: None Years of education: None Highest education level: None Tobacco Use Smoking status: Never Smokeless tobacco: Never Vaping Use Vaping status: Never Used Substance and Sexual Activity Alcohol use: Never Drug use: Never Social Drivers of Health Financial Resource Strain: Medium Risk (12/30/2024) Overall Financial Resource Strain (CARDIA) Difficulty of Paying Living Expenses: Somewhat hard Food Insecurity: Food Insecurity Present (12/30/2024) Hunger Vital Sign Worried About Running Out of Food in the Last Year: Sometimes true Ran Out of Food in the Last Year: Never true Transportation Needs: No Transportation Needs (12/30/2024) [facility] IP Transportation In the past 12 months, has lack of reliable transportation kept you from medical appointments, meetings, work or from getting things needed for daily living?: No Physical Activity: Inactive (12/30/2024) Exercise Vital Sign Days of Exercise per Week: 0 days Minutes of Exercise per Session: 0 min Stress: No Stress Concern Present (12/30/2024) [facility] Occupational [facility] - Occupational Stress Questionnaire Feeling of Stress : Only a little Received from [facility] Family and Community Support Received from [facility] Abuse Screen Received from [facility] Housing Stability Family History Problem Relation Age of Onset Heart Attack Mother pt is suspicious about this, thinks clotting disorder Kidney Disease Mother Hypertension Mother Early Father 33 Heart Attack Father 33 Other (Factor V Leiden) Father Medications Prior to Admission Medication Sig Dispense Refill Last Dose/Taking albuterol (PROVENTIL HFA;VENTOLIN HFA) 90 mcg/actuation Inhl HFA Aerosol Inhaler Inhale 2 Puffs into the lungs as needed. 01/13/2025 Morning amLODIPine (NORVASC) 5 mg Oral Tablet Take 1 Tab by mouth daily. 30 Tab 2 01/12/2025 Morning atorvastatin (LIPITOR) 40 mg Oral Tablet Take 40 mg by mouth nightly. 01/12/2025 Bedtime famotidine (PEPCID) 20 mg Oral Tablet Take 40 mg by mouth nightly. 01/12/2025 Bedtime FLUoxetine (PROZAC) 20 mg Oral Capsule Take 60 mg by mouth nightly. 01/12/2025 Bedtime folic acid (FOLVITE) 1 mg Oral Tablet Take 1 Tablet by mouth daily. 30 Tablet 0 01/12/2025 Morning glipiZIDE (GLUCOTROL) 5 mg Oral Tablet Take 1 Tablet by mouth daily (with breakfast). 30 Tablet 0 01/12/2025 Morning LEVOthyroxine (SYNTHROID) 50 mcg Oral Tablet Take 75 mcg by mouth daily. 01/12/2025 Morning metFORMIN (GLUCOPHAGE) 500 mg Oral Tablet Take 1 Tablet by mouth 2 times daily (with meals). 60 Tablet 1 01/12/2025 Bedtime mirabegron (MYRBETRIQ) 50 mg Oral Tablet Sustained Release 24 hr Take 50 mg by mouth daily. 01/12/2025 Morning oxyCODONE (OXYCONTIN) 15 mg Oral tablet,oral only,ext.rel.12 hr Take 15 mg by mouth every 12 hours.01/12/2025 Bedtime propranoloL (INDERAL) 20 mg Oral Tablet Take 20 mg by mouth every 12 hours. 01/12/2025 Bedtime QUEtiapine (SEROQUEL) 100 mg Oral Tablet Take 100 mg by mouth 2 times daily. 01/12/2025 rOPINIRole (REQUIP) 2 mg Oral Tablet Take 2 mg by mouth 3 times daily. 01/12/2025 Bedtime tiZANidine (ZANAFLEX) 4 mg Oral Tablet Take 8 mg by mouth nightly. at bedtime 01/12/2025 Bedtime torsemide (DEMADEX) 20 mg Oral Tablet Take 20 mg by mouth daily. 01/12/2025 traMADoL (ULTRAM) 50 mg Oral Tablet Take 50-100 mg by mouth 4 times daily. 01/12/2025 Evening warfarin (COUMADIN) 5 mg Oral Tablet Take 5-7.5 mg by mouth daily. Takes 7.5 mg MWF and 5 mg on allother days. 01/12/2025 Morning nystatin (MYCOSTATIN) Top Cream Apply topically 3 times daily. (Patient not taking: Reported on 01/13/2025) Not Taking Review of Systems: The listed systems were reviewed and reveal the following in addition to any already discussed in the HPI: Constitutional: No fever. No weight loss. Eyes: No visual disturbance. HENT: No headache, hearing loss, epistaxis, sore throat. Respiratory: Positive for shortness of breath. No cough, hemoptysis or pleuritic chest pain. Cardiovascular: No chest pain, PND or orthopnea, no palpitations. Endocrine: No polyuria, polydypsia, or polyphagia. GI: No abdominal pain, nausea, vomiting, diarrhea, melena or hematochezia. : No dysuria, frequency, hesitancy, or hematuria Musculoskeletal: No myalgias or muscle weakness. Neurologic: No focal numbness or weakness. Skin: erythema of the abdominal wall. Psychiatric: No depression, homicidal or suicidal ideation. Hematologic/Allergic: No history of blood clots, bleeding or easy bruising. OBJECTIVE: Physical Exam: Vitals: 01/13/25 1650 BP: (!) 177/88 Pulse: 95 Resp: (!) 30 Temp: 99.1 ??F (37.3 ??C) SpO2: 100% Weight: (!) 511 lb (231.8 kg) Constitutional: No acute distress. She is obese. Eyes: PERRL, conjunctiva normal. HENT: Atraumatic,mouth moist. Neck: normal range of motion, no tenderness, supple, no JVD. Respiratory: No respiratory distress, normal breath sounds, no rales, no wheezing. Cardiovascular: Normal rate, normal rhythm, no murmurs, no gallops, no rubs. Abdomen: Soft, nondistended, non tender,no rebound. Bowel sounds are present. Musculoskeletal: No edema, no tenderness, no deformities. Integument: Over the right side of the abdominal wall associated with increased warmth Neurologic: Alert, awake oriented x 3. No gross focal deficits noted. Psychiatric: Speech and behavior appropriate. Labs: Labs: CBC: Lab Results Component Value Date WBC 24.9 (H) 01/13/2025 RBC 4.67 01/13/2025 HGB 10.0 (L) 01/13/2025 HCT 33.5 (L) 01/13/2025 MCV 71.7 (L) 01/13/2025 MCHC 29.9 (L) 01/13/2025 PLT 345 01/13/2025 BMP: Lab Results Component Value Date NA 134 (L) 01/13/2025 K 4.6 01/13/2025 CL 99 01/13/2025 CO2 22 01/13/2025 BUN 15 01/13/2025 CREATININE 1.08 01/13/2025 CALCIUM 7.8 (L) 01/13/2025 GLU 235 (H) 01/13/2025 Hepatic: No results found for: ALKPHOS , ALT , AST , PROT , LABBILI , BILIDIR , IBILI , LABALBU No results found for: AMYLASE , LIPASE U/A:No results found for: UAPROTEIN , BLOODU , NITRITE , LEUKOCYTESUR , WBCUA , RBCUA Coagulation: Lab Results Component Value Date INR 4.25 (H) 01/13/2025 Cardiac markers: No components found for: TROPONIN Radiology: CT ANGIOGRAM PULMONARY W CONTRAST Result Date: 01/13/2025 CT PULMONARY ANGIOGRAM, 01/13/2025 8:15 AM CLINICAL HISTORY: -soa with factor V. COMPARISON: None. TECHNIQUE: PE protocol CT angiogram of the chest using Isovue 370 IV contrast as recorded in EPIC. 2-D multiplanar reconstructions and 3-D MIP reconstructions reviewed. Dose 1 : CT DLP Total : 760.63 mGycm DLP Spiral Max : 728.76 mGycm Maximum CTDI Vol : 22.34 mGy FINDINGS: Significantly limited study due to technical and/or patient factors. Circulation peripheral to the right and left main pulmonary arteries is poorly assessed. No acute pulmonary embolism. No aortic arch aneurysm. Upper lobe infiltrate and right lower lobe infiltrate noted most compatible with pneumonia. The right middle lobe is spared. The left lung is spared. No pleural fluid. No suspicious pulmonary nodule or mediastinal mass lesion. Coronary artery calcification: None. Limited study secondary to body habitus. Right lung pneumonia. No definite pulmonary embolism. - Note: Radiology results need to be interpreted within a comprehensive clinical context. If you have questions about the radiology report, please contact the office of the ordering clinician. Assessment/Plan: Assessment & Plan Pneumonia of right lower lobe due to infectious organism Will treat with broad-spectrum antibiotics including vancomycin, cefepime given recent hospitalization Add doxycycline 100 mg twice daily to cover for atypicals Blood cultures have been sent. Will follow the results Factor V Leiden INR is therapeutic. Pharmacy to manage Coumadin. Discussed with the pharmacist Hypothyroidism Resume Synthroid 50 mcg daily Hypertension Resume Norvasc 5 mg daily Type 2 diabetes mellitus, without long-term current use of insulin (HCC) On metformin 500 mg twice daily and glipizide 5 mg daily. Start insulin administration via insulin calculator Class 3 severe obesity with body mass index (BMI) greater than or equal to 70 in adult Weight loss recommended as obesity complicates all aspects of care Cellulitis of abdominal wall Continue broad-spectrum antibiotics including vancomycin, cefepime as noted above Chronic back pain Resume home meds including oxycontin 15 mg every 12 hours And Zanaflex 8 mg at bedtime. Mood disorder On Prozac 20 mg daily DVT prophylaxis On coumadin Harriet Godinez MD 01/13/2025 5:05 PM Part of this note was dictated using voice recognition technology and may include unintended spelling errors. documented in this encounter ED Notes * Olvin Yarbrough MD - 01/13/2025 7:02 AM EDT CHIEF COMPLAINT: Shortness of breath HISTORY OF PRESENT ILLNESS: The patient is a 44-year-old female with history of hypertension, hyperlipidemia, type 2 diabetes mellitus, factor V Leiden deficiency on warfarin who presents to the emergency department for shortness of breath. Patient states she woke up around 1 this morning with somesharp chest pain and trouble breathing. She states that she felt like she could not take a deep breath in. She states the pain was across her chest without radiation, without alleviating or exacerbating factors. She also had some associated dry cough and I just felt bad . She tells me she had no documented fevers but felt feverish. She denies any chills, diaphoresis, lightheadedness, dizziness, focal numbness, tingling, or weakness. She states as well feeling a hot sensation on my stomach like when I had cellulitis. She was just recently discharged from the hospital a week ago after being diagnosed with a thrombosis of the right saphenous vein. She states compliance with her Coumadin. She tells me she takes 7.5 mg daily. Currently, her pain is 7 out of 10, diffusely over her body. PAST MEDICAL HISTORY: Please see electronic medical record Medications: Reviewed per nursing records Allergies: Reviewed per nursing records Surgeries: Please see electronic medical record SOCIAL HISTORY: Patient denies the use of alcohol, tobacco, or illicit drugs FAMILY HISTORY: Noncontributory REVIEW OF SYSTEMS: 14-point review of systems completed and found to be negative except as mentioned and denoted in the history of present illness VITAL SIGNS: ED Triage Vitals [01/13/25 0703] Temp 99.4 ??F (37.4 ??C) Pulse 96 Resp (!) 24 BP 134/64 SpO2 100 % Height 5' 6 (1.676 m) Weight (!) 511 lb (231.8 kg) PHYSICAL EXAMINATION: General: Well developed, well nourished, nontoxic-appearing, in no acute distress Skin: Warm and dry, no signs of pallor or cyanosis HEENT: Normocephalic, appearing atraumatic, moist mucous membranes, no lymphadenopathy, conjunctivae appearing unremarkable, trachea midline, oropharynx appearing unremarkable Cardiac: Regular rate and regular rhythm, no rubs murmurs or gallops appreciated Pulmonary: Symmetric chest excursion, clear to auscultation bilaterally, normal air movement throughout the chest, tachypnea is present Abdominal: Soft, obese with edema present, normoactive bowel sounds, no signs of rebound or guarding, no signs of palpable masses appreciated, the skin overlying the left lower abdominal area is withcellulitic changes including erythema, warmth, and some superficial skin breakdown Extremity: No signs of peripheral cyanosis, appearing atraumatic, pulses difficult to palpate bilaterally secondary to morbid obesity however, all extremities are warm and well-perfused Neurological: Alert and oriented x3, GCS 15 LABORATORY/IMAGING STUDIES: Results for orders placed or performed during the hospital encounter of 01/13/25 [id number] A/B Specimen: Nares; Swab Result Value Ref Range CORONAVIRUS [id number] Not Detected Not Detected Influenza A DNA Not Detected Not Detected Influenza B DNA Not Detected Not Detected CT ANGIOGRAM PULMONARY W CONTRAST Narrative CT PULMONARY ANGIOGRAM, 01/13/2025 8:15 AM CLINICAL HISTORY: -soa with factor V. COMPARISON: None. TECHNIQUE: PE protocol CT angiogram of the chest using Isovue 370 IV contrast as recorded in [id number]. 2-D multiplanar reconstructions and 3-D MIP reconstructions reviewed. Dose 1 : CT DLP Total : 760.63 mGycm DLP Spiral Max : 728.76 mGycm Maximum CTDI Vol : 22.34 mGy FINDINGS: Significantly limited study due to technical and/or patient factors. Circulation peripheral to the right and left main pulmonary arteries is poorly assessed. No acute pulmonary embolism. No aortic arch aneurysm. Upper lobe infiltrate and right lower lobe infiltrate noted most compatible with pneumonia. The right middle lobe is spared. The left lung is spared. No pleural fluid. No suspicious pulmonary nodule or mediastinal mass lesion. Coronary artery calcification: None. Impression Limited study secondary to body habitus. Right lung pneumonia. No definite pulmonary embolism. - Note: Radiology results need to be interpreted within a comprehensive clinical context. If you have questions about the radiology report, please contact the office of the ordering clinician. CBC WITH DIFF Result Value Ref Range WBC 24.9 (H) 3.7 - 10.3 x10(3)/mcL RBC 4.67 3.90 - 5.20 x10(6)/mcL Hgb 10.0 (L) 11.2 - 15.7 g/dL Hct 33.5 (L) 34.0 - 45.0 % MCV 71.7 (L) 80.0 - 100.0 fL MCH 21.4 (L) 26.0 - 34.0 pg MCHC 29.9 (L) 30.7 - 35.5 g/dL RDW 16.9 (H) <=14.9 % Platelet 345 155 - 369 x10(3)/mcL MPV 10.8 8.8 - 12.5 fL NRBC Auto % 0.1 (H) <=0.0 % NRBC# 0.0 x10(3)/mcL Neut Percent 95.0 % Imm Gran% 1.0 % Lymph Percent 1.6 % [place] Percent 1.9 % Eos Percent 0.2 % Baso Percent 0.3 % Neut # 23.7 (H) 1.6 - 6.1 x10(3)/mcL IMMGRAN# 0.2 (H) 0.0 - 0.1 x10(3)/mcL Lymph # 0.4 (L) 1.2 - 3.9 x10(3)/mcL [place] # 0.5 0.3 - 0.9 x10(3)/mcL Eos# 0.1 0.0 - 0.5 x10(3)/mcL Baso # 0.1 0.0 - 0.1 x10(3)/mcL [place] Slight Polychrom Slight Ovalocyte Occasional Target Cell Occasional BASIC METABOLIC PANEL Result Value Ref Range Sodium 134 (L) 136 - 145 mmol/L Potassium 4.6 3.5 - 5.0 mmol/L Chloride 99 98 - 107 mmol/L Total CO2 22 22 - 29 mmol/L Anion Gap 13 7 - 16 mmol/L Calcium 7.8 (L) 8.6 - 10.4 mg/dL Glucose Lvl 235 (H) 70 - 99 mg/dL BUN 15 6 - 20 mg/dL Creatinine 1.08 0.51 - 1.30 mg/dL eGFR (CKD-EPIcr 2020) 65 >=60 mL/min/1.73 m2 NT PROBNP Result Value Ref Range NT Pro-BNP 1,267 (H) <=192 pg/mL Narrative An NT pro-BNP level less than 300 pg/mL in any patient, regardless of age, effectively rules out acute CHF with a 99% negative predictive value. Ingestion of tom doses of biotin (>5 mg/day) taken within 8 hours of drawing blood sample can interfere with this immunoassay test. TROPONIN-T HIGH SENSITIVITY BASELINE W/ REFLEX Result Value Ref Range hw-kUfvpwiln-S 24 (H) <14 ng/L Narrative Ingestion of tom doses of biotin (>5 mg/day) taken within 8 hours of drawing blood sample can interfere with this immunoassay test. HUMAN CHORIONIC GONADOTROPIN QUANTITATIVE Result Value Ref Range Hcg Quant <1 <5 mIU/mL Narrative Female (non-): 0-4.9 mIU/mL Female (postmenopausal): 0-8.1 mIU/mL Indeterminate values for (e.g., 5-25 mIU/mL) may be confirmed with a repeat test in 48-72hours. Values in should double every 2-3 days for the first six weeks. Ingestion of tom doses of biotin (>5 mg/day) taken within 8 hours of drawing blood sample can interfere with this immunoassay test. PT / INR Result Value Ref Range PT 50.3 (H) 10.5 - 13.6 second(s) INR 4.25 (H) 0.91 - 1.18 (ratio) LACTIC ACID Result Value Ref Range Lactic Acid 1.5 0.5 - 1.9 mmol/L BLOOD GAS, VENOUS Result Value Ref Range pH Venous 7.43 (H) 7.32 - 7.42 pH pCO2 Venous 38 (L) 41 - 51 mmHg pO2 Venous 31 25 - 40 mmHg Base Excess David 0.5 mmol/L Hco3 Venous 24.8 24.0 - 28.0 mmol/L CO2 Total David 23 (L) 25 - 29 mmol/L O2 Sat. Venous 62.9 40.0 - 70.0 % Inspired O2 RA EK EKG 12 LEAD Narrative NOTICE: Preliminary tracing available for review; Final Interpretation by physician to follow. Impression [facility] Test Date: 2025-01-13 Pat Name: EVANGELIST NETTLES Department: DEPID Room: [facility] Gender: Female Third Helper: Amelia : 1980 Requested By: OLVIN Valencia Order Number: [id number] Reading MD: Measurements Intervals [place] Rate: 93 P: 62 PA: 160 QRS: 86 QRSD: 95 T: 29 QT: 357 QTc: 445 Interpretive Statements SINUS RHYTHM LOW QRS VOLTAGE IN PRECORDIAL LEADS [QRS DEFLECTION < 1.0 mV IN CHEST LEADS] EKG 0714 shows normal sinus rhythm with a rate of 93. Normal axis. Normal intervals. No obvious ST or T wave changes concerning for acute occlusive disease. Overall, when compared with previous EKG on 04/16/2024, EKG appears unchanged. EKG interpreted by me with care. *Imaging independently reviewed and interpreted by myself and consistent with: N/A MEDICAL DECISION MAKING: Patient is a 44-year-old female who presents to the emergency department for shortness of breath. Upon initial examination, the patient appears hemodynamically stable and in no acute distress. She is borderline febrile, borderline tachycardic and is tachypneic but is satting well on room air. She is normotensive. Given history, will evaluate from an infectious and acute occlusive standpoint with labs, CT scan, EKG. Viral swabs negative. CBC shows white count of 25, with normal lactic acid level. Patient does have reassuring BMP. Troponin is mildly elevated at 24 with elevation of BNP however, no evidence concerning for pulmonary edema on CT scan. CT scan shows right lung pneumonia. INR is 4.2 which is supratherapeutic. VBG overall reassuring. On reevaluation, patient with no new or worsening symptoms. She remains hemodynamically stable, is tachypneic but satting well. Vancomycin and cefepime ordered for broad-spectrum coverage. Given the above, I spoke with Dr. Godinez regarding admission. He agrees to admission. Patient admitted in stable condition. CLINICAL IMPRESSION: Right lower lobe pneumonia, abdominal wall cellulitis, shortness of breath, elevated troponin, elevated BNP, leukocytosis DISPOSITION/PLAN: Admitted to TCU bed at [facility] in [place] Olvin Yarbrough MD 01/13/25 1015 documented in this encounter Miscellaneous Notes * Query Response Document - Harriet Godinez MD - 01/20/2025 4:00 PM EDT [facility] CDI / HIM Coding Query Documentation PATIENT: EVANGELIST NETTLES : 1980 ADMIT DATE: 01/13/2025 7:02 AM DISCH DATE: 01/20/2025 4:00 PM RESPONDING PROVIDER #: [id number] PROVIDER QUERY RESPONSE TEXT: Chronic kidney disease Stage 3 CDI / HIM Coding QUERY TEXT: Retrospective Query The purpose of this query is to further clarify the documented Chronic Kidney Disease (CKD) in the medical record. To view the encounter for this patient, click the patient's name highlighted in blue. Admitted with pneumonia on 01/13 Stages are defined by the [employer] as follows: -- GFR > 90 ml/min = Stage 1 -- GFR 60-89 ml/min = Stage 2 -- GFR 30-59 ml/min = Stage 3 -- GFR 45-59 ml/min = Stage 3a -- GFR 30-44 ml/min = Stage 3b -- GFR 15-29 ml/min = Stage 4 -- GFR < 15 ml/min = Stage 5 -- End Stage Renal Disease Please indicate or specify the stage of the documented CKD: The patient's clinical indicators include: H&P states past medical history of CKD -GFR results: 7-10 = 65 7-11 = 61 7-12 = 57 7-13 = 46 7-14 = 39 7-15 = 36 7-16 = 39 7-17 = 40. PLEASE ALSO DOCUMENT DIAGNOSIS IN NOTES AND/ OR D/C SUMMARY? ? This electronic query and response are a permanent part of the medical record. Please do not updatethe Problem List as your response. The Problem List is dynamic and is not a permanent part of this Date of Service.? An unanswered query is considered a non-response.? ? Thank you for your assistance.? (For any questions, please contact Julio César Faustin @ [phone]) Options provided: -- Chronic kidney disease Stage 1 -- Chronic kidney disease Stage 2 -- Chronic kidney disease Stage 3 -- Chronic kidney disease Stage 3a -- Chronic kidney disease Stage 3b -- Chronic kidney disease Stage 4 -- Chronic kidney disease Stage 5 -- End Stage Renal Disease -- Other - I will add my own diagnosis -- Disagree - Not applicable / Not valid Query created by: Sasha Bonilla on 01/27/2025 11:38 AM Electronically signed by: Harriet Godinez MD 02/05/2025 6:52 PM * Query Response Document - Harriet Godinez MD - 01/20/2025 4:00 PM EDT [facility] CDI / HIM Coding Query Documentation PATIENT: EVANGELIST NETTLES : 1980 ADMIT DATE: 01/13/2025 7:02 AM DISCH DATE: 01/20/2025 4:00 PM RESPONDING PROVIDER #: [id number] PROVIDER QUERY RESPONSE TEXT: Chronic DVT CDI / HIM Coding QUERY TEXT: Retrospective Query The purpose of this query is to clarify the specificity of a documented diagnosis. To view the encounter for this patient, click the patient's name highlighted in blue. Admitted with pneumonia on 01/13 Treatment included: coumadin Please indicate or document the status of the DVT: The patient's clinical indicators include: ER notes: From a week ago being discharges with thrombosis of right saphenous vein, on Coumadin. H&P notes superficial venous thrombosis LE's. PLEASE ALSO DOCUMENT DIAGNOSIS IN NOTES AND/ OR D/C SUMMARY? ? This electronic query and response are a permanent part of the medical record. Please do not updatethe Problem List as your response. The Problem List is dynamic and is not a permanent part of this Date of Service.? An unanswered query is considered a non-response.? ? Thank you for your assistance.? (For any questions, please contact Julio César Faustin @ [phone]) Options provided: -- Acute DVT -- Chronic DVT -- History of DVT -- Other - I will add my own diagnosis -- Disagree - Not applicable / Not valid Query created by: Sasha Bonilla on 01/27/2025 11:39 AM Electronically signed by: Harriet Godinez MD 02/05/2025 6:52 PM * Utilization Review Notes - Virginia Ferrara RN - 01/20/2025 3:00 PM EDT RECRUITING COORDINATOR; inpt order in chart; ED admit to telemetry on 01/13/25 Pneumonia of RLL - VSS - Cr 1.61, eFR 40, BUN 24, INR 2.58 - IVF D/C - Augmentin PO, Vibra tab PO, Glipizide PO, Oxycodone PO, Propranolol PO, Torsemide PO - PT recommends SNF - placement to [facility] pending D/C plan; CC following * Utilization Review Notes - Virginia Ferrara RN - 01/17/2025 4:16 PM EDT Images from the original note were not included. RECRUITING COORDINATOR; inpt order in chart; ED admit to telemetry on 01/13/25 Per MD note on 01/17/25: Assessment & Plan Pneumonia of right lower lobe due to infectious organism Will de-escalate blood spectrum antibiotics and start Augmentin. Continue doxycycline 100 mg twice daily Factor V Leiden Patient is on Coumadin. Pharmacy is managing Labs reviewed. INR is 1.90 today Hypothyroidism Continue Synthroid 50 mcg daily Hypertension On Norvasc 5 mg daily Type 2 diabetes mellitus, without long-term current use of insulin (HCC) On metformin 500 mg twice daily and glipizide 5 mg daily. Continue insulin administration via insulin calculator Class 3 severe obesity with body mass index (BMI) greater than or equal to 70 in adult Weight loss recommended as obesity complicates all aspects of care Cellulitis of abdominal wall. Improving. Patient picks her skin constantly. Change vancomycin and cefepime to Augmentin and continue doxycycline 100 mg twice daily Chronic back pain Patient is on oxycontin 15 mg every 12 hours On Zanaflex 8 mg at bedtime. Mood disorder On Prozac 20 mg daily Anemia of chronic disease Continue to monitor hemoglobin Ferrlecit 125 mg x 2 doses given. Disposition. Anticipate discharge tomorrow Out of bed as tolerated today. D/C plan; CC following * Utilization Review Notes - Virginia Ferrara RN - 01/13/2025 3:49 PM EDT RECRUITING COORDINATOR; inpt order in chart; ED admit to telemetry on 01/13/25 R lower lung Pneumonia - pt presents to ED for SOB - hx of HLD, HTN, type 2 DM, obesity, factor V Leiden (Warfarin - weight 511 lbs; RR 21-40; temp 99.4, 99.5 degrees Fahrenheit - CTA pulmonary reveals R lower lobe pneumonia - IV Cefepime TID, Morphine IV x 1, IV Vancomycin BID, Warfarin - NT Pro BNP 1,267, Troponin 24, Na 134, glucose 235, INR 4.25, PT 50.3, WBC 24.9, ph 7.43, pCO2 38 - blood cultures pending D/C plan; CC following * Utilization Review Notes - Leilani Morley RN - 01/13/2025 12:11 PM EDT Admit as inpatient on 01/13 INPT order on chart Admit on TCU cardiac unit for Pneumonia of right lower lobe due to infectious organism PER MD NOTES: she woke up around 1 this morning with some sharp chest pain and trouble breathing. CLINICAL IMPRESSION: Right lower lobe pneumonia, abdominal wall cellulitis, shortness of breath, elevated troponin, elevated BNP, leukocytosis LABS: WBC: 24.9 PT: 50.3 INR: 4.25 Calcium:7.8 VITALS: RR: 15-40, RA IV MEDS: Cefepime TID Morphine 1x Vancomycin BID CTA pulm: Limited study secondary to body habitus. Right lung pneumonia. No definite pulmonary embolism. CC following for D/C needs. documented in this encounter Plan of Treatment Not on file documented as of this encounter Procedures Procedure Name Priority Date/Time Associated Diagnosis Comments GLUCOSE METER POC Routine 01/20/2025 1:2 3 PM EDT GLUCOSE METER POC Routine 01/20/2025 8:0 6 AM EDT PT / INR Early AM 01/20/2025 7:36 AM EDT BASIC METABOLIC PANEL Early AM 01/20/2025 7:36 AM EDT EXTRA TUBES PANEL Routine 01/20/2025 7:3 5 AM EDT EXTRA LAVENDER Routine 01/20/2025 7:35 AM EDT GLUCOSE METER POC Routine 01/19/2025 8:2 2 PM EDT ECG AND WAVEFORMS - TELEMETRY Routine 01/19/2025 6:59 PM EDT GLUCOSE METER POC Routine 01/19/2025 5:1 9 PM EDT GLUCOSE METER POC Routine 01/19/2025 1:4 7 PM EDT GLUCOSE METER POC Routine 01/19/2025 8:1 2 AM EDT ECG AND WAVEFORMS - TELEMETRY Routine 01/19/2025 7:32 AM EDT EXTRA TUBES PANEL Routine 01/19/2025 6:2 8 AM EDT EXTRA LAVENDER Routine 01/19/2025 6:28 AM EDT PT / INR Early AM 01/19/2025 6:28 AM EDT BASIC METABOLIC PANEL Early AM 01/19/2025 6:28 AM EDT GLUCOSE METER POC Routine 01/18/2025 9:3 8 PM EDT ECG AND WAVEFORMS - TELEMETRY Routine 01/18/2025 8:58 PM EDT GLUCOSE METER POC Routine 01/18/2025 6:0 1 PM EDT GLUCOSE METER POC Routine 01/18/2025 12: 54 PM EDT GLUCOSE METER POC Routine 01/18/2025 9:2 2 AM EDT ECG AND WAVEFORMS - TELEMETRY Routine 01/18/2025 7:00 AM EDT EXTRA TUBES PANEL Routine 01/18/2025 6:2 5 AM EDT EXTRA MINT GREEN LI Routine 01/18/2025 6 :25 AM EDT EXTRA LAVENDER Routine 01/18/2025 6:25 AM EDT CBC Add-On 01/18/2025 6:25 AM EDT PT / INR Early AM 01/18/2025 6:25 AM EDT BASIC METABOLIC PANEL Add-On 01/18/2025 6:25 AM EDT GLUCOSE METER POC Routine 01/17/2025 9:0 6 PM EDT ECG AND WAVEFORMS - TELEMETRY Routine 01/17/2025 8:39 PM EDT GLUCOSE METER POC Routine 01/17/2025 5:5 7 PM EDT VANCOMYCIN LEVEL AUC2 MADELINE 01/17/2025 2:24 PM EDT GLUCOSE METER POC Routine 01/17/2025 1:4 1 PM EDT GLUCOSE METER POC Routine 01/17/2025 8:4 8 AM EDT ECG AND WAVEFORMS - TELEMETRY Routine 01/17/2025 7:32 AM EDT VANCOMYCIN LEVEL AUC1 Early AM 01/17/2025 7:20 AM EDT BASIC METABOLIC PANEL MADELINE 01/17/2025 7:20 AM EDT EXTRA TUBES PANEL Routine 01/17/2025 6:1 8 AM EDT EXTRA MINT GREEN LI Routine 01/17/2025 6 :18 AM EDT EXTRA LAVENDER Routine 01/17/2025 6:18 AM EDT PT / INR Early AM 01/17/2025 6:18 AM EDT GLUCOSE METER POC Routine 01/16/2025 9:2 5 PM EDT ECG AND WAVEFORMS - TELEMETRY Routine 01/16/2025 7:05 PM EDT GLUCOSE METER POC Routine 01/16/2025 6:0 5 PM EDT GLUCOSE METER POC Routine 01/16/2025 12: 21 PM EDT GLUCOSE METER POC Routine 01/16/2025 8:2 9 AM EDT ECG AND WAVEFORMS - TELEMETRY Routine 01/16/2025 7:31 AM EDT PT / INR Early AM 01/16/2025 4:42 AM EDT CBC WITH DIFF Early AM 01/16/2025 4:42 AM EDT BASIC METABOLIC PANEL Early AM 01/16/2025 4:42 AM EDT GLUCOSE METER POC Routine 01/15/2025 9:2 2 PM EDT ECG AND WAVEFORMS - TELEMETRY Routine 01/15/2025 6:57 PM EDT GLUCOSE METER POC Routine 01/15/2025 6:1 9 PM EDT VANCOMYCIN LEVEL AUC2 Timed 01/15/2025 1:23 PM EDT GLUCOSE METER POC Routine 01/15/2025 12: 39 PM EDT ECG AND WAVEFORMS - TELEMETRY Routine 01/15/2025 9:30 AM EDT ECG AND WAVEFORMS - TELEMETRY Routine 01/15/2025 8:24 AM EDT GLUCOSE METER POC Routine 01/15/2025 7:5 7 AM EDT VANCOMYCIN LEVEL AUC1 Timed 01/15/2025 6:39 AM EDT PT / INR Early AM 01/15/2025 6:39 AM EDT CBC WITH DIFF Early AM 01/15/2025 6:39 AM EDT BASIC METABOLIC PANEL Early AM 01/15/2025 6:39 AM EDT GLUCOSE METER POC Routine 01/15/2025 12: 17 AM EDT ECG AND WAVEFORMS - TELEMETRY Routine 01/14/2025 7:08 PM EDT VANCOMYCIN LEVEL AUC2 Timed 01/14/2025 6:35 PM EDT GLUCOSE METER POC Routine 01/14/2025 5:5 5 PM EDT VANCOMYCIN LEVEL AUC1 Timed 01/14/2025 1:46 PM EDT GLUCOSE METER POC Routine 01/14/2025 12: 52 PM EDT SCANNED EKG 01/14/2025 9:59 AM EDT GLUCOSE METER POC Routine 01/14/2025 9:2 3 AM EDT ECG AND WAVEFORMS - TELEMETRY Routine 01/14/2025 7:00 AM EDT PT / INR Early AM 01/14/2025 6:41 AM EDT CBC WITH DIFF Early AM 01/14/2025 6:41 AM EDT BASIC METABOLIC PANEL Early AM 01/14/2025 6:41 AM EDT GLUCOSE METER POC Routine 01/13/2025 10: 24 PM EDT GLUCOSE METER POC Routine 01/13/2025 7:2 8 PM EDT ECG AND WAVEFORMS - TELEMETRY Routine 01/13/2025 7:00 PM EDT STAPHYLOCOCCUS AUREUS SCREEN Routine 01/13/2025 5:36 PM EDT GLUCOSE METER POC Routine 01/13/2025 3:1 0 PM EDT ECG AND WAVEFORMS - TELEMETRY Routine 01/13/2025 1:31 PM EDT ADMIT STAT 01/13/2025 10:12 AM EDT BLOOD GAS, VENOUS STAT 01/13/2025 9:5 9 AM EDT BLOOD CULTURE (NO STAIN) STAT 01/13/2025 9:59 AM EDT TROPONIN-T HIGH SENSITIVITY 2HR Timed 01/13/2025 9:45 AM EDT PROCALCITONIN STAT 01/13/2025 9:45 AM EDT BLOOD CULTURE (NO STAIN) STAT 01/13/2025 9:45 AM EDT IP CONSULT TO PHARMACY STAT 9:[address] ANGIOGRAM PULMONARY W CONTRAST STAT 01/13/2025 8:15 AM EDT [id number] A/B Routine 01/13/2025 7:3 0 AM EDT LACTIC ACID STAT 01/13/2025 7:25 AM EDT TROPONIN-T HIGH SENSITIVITY BASELINE W/ REFLEX STAT 01/13/2025 7:14 AM EDT PT / INR STAT 01/13/2025 7:14 AM EDT CBC WITH DIFF STAT 01/13/2025 7:14 AM EDT HUMAN CHORIONIC GONADOTROPIN QUANTITATIVE STAT 01/13/2025 7:14 AM EDT NT PROBNP STAT 01/13/2025 7:14 AM EDT BASIC METABOLIC PANEL STAT 01/13/2025 7:14 AM EDT EK EKG 12 LEAD STAT 01/13/2025 7:06 AM EDT documented in this encounter Results * (ABNORMAL) GLUCOSE METER POC (01/20/2025 1:23 PM EDT) [facility] Glucose Meter POC 214(H) 70 - 100 mg/dL 01/20/2025 1:24 PM EDT [facility] Sample Type Capillary 01/20/2025 1:24 PM EDT [facility] Patient Status Non-Critical Patient 01/20/2025 1:24 PM EDT [facility] Blood BLOOD SPECIMEN / Unknown 01/20/2025 1:23 PM EDT 01/20/2025 1:24 PM EDT Harriet Godinez MD POINT OF CARE TEST ORDERABLES Fi nal Result [facility] [address] [place] [address] * (ABNORMAL) GLUCOSE METER POC (01/20/2025 8:06 AM EDT) [facility] Glucose Meter POC 164(H) 70 - 100 mg/dL 01/20/2025 8:07 AM EDT [facility] Sample Type Capillary 01/20/2025 8:[address] [facility] Patient Status Non-Critical Patient 01/20/2025 8:[address] [facility] Blood BLOOD SPECIMEN / Unknown 01/20/2025 8:06 AM EDT 01/20/2025 8:07 AM EDT Harriet Godinez MD POINT OF CARE TEST ORDERABLES Fi nal Result [facility] [address] [place] [address] * (ABNORMAL) BASIC METABOLIC PANEL (01/20/2025 7:36 AM EDT) [facility] Sodium 137 136 - 145 mmol/L 01/20/2025 8:00 AM EDT [facility] Potassium 4.2 3.5 - 5.0 mmol/L 01/20/2025 8:00 AM EDT [facility] Chloride 104 98 - 107 mmol/L 01/20/2025 8:00 AM EDT [facility] Total CO2 21(L) 22 - 29 mmol/L 01/20/2025 8:00 AM EDT [facility] Anion Gap 12 7 - 16 mmol/L 01/20/2025 8:00 AM EDT [facility] Calcium 7.8(L) 8.6 - 10.4 mg/dL 01/20/2025 8:00 AM EDT [facility] Glucose Lvl 175(H) 70 - 99 mg/dL 01/20/2025 8:00 AM EDT [facility] BUN 24(H) 6 - 20 mg/dL 01/20/2025 8:00 AM EDT [facility] Creatinine 1.61(H) 0.51 - 1.30 mg/dL 01/20/2025 8:00 AM EDT [facility] eGFR (CKD-EPIcr 2020) 40(L) >=60 mL/min/1.7 3 m2 01/20/2025 8:00 AM EDT [facility] Comment:Estimated GFR was ca lculated using the CKD-EPIcr (2020) equation refit without race. The equation is recommended by the [employer] - [place] [employer] Neph[employer] Task Force. Blood VENOUS BLOOD / Unknown Venipuncture / Unknown 01/20/2025 7:36 AM EDT 01/20/2025 7:41 AM EDT Harriet Godinez MD CHEMISTRY ORDERABLES Final Resul t Performing Organization Address City/[facility]/ZIP Co de Phone Number [facility] [address] [place] [address] * (ABNORMAL) PT / INR (01/20/2025 7:36 AM EDT) PT 30.2(H) 10.5 - 13.6 second(s) 01/20/2025 7:54 AM EDT [facility] INR 2.58(H) 0.91 - 1.18 (ratio) 01/20/2025 7:54 AM EDT [facility] Comment: Level of Therapy Indications Target INR Range Standard Dose Treatment and prophylaxis of venous 2.0 - 3.0 thrombosis, pulmonary embolism High Dose High risk patients with mechanical 2.5 - 3.5 heart valves Blood VENOUS BLOOD / Unknown Venipuncture / Unknown 01/20/2025 7:36 AM EDT 01/20/2025 7:41 AM EDT Harriet Godinez MD HEMATOLOGY ORDERABLES Final Resu lt Performing Organization Address [facility]/ZIP Co de Phone Number [facility] [address] [place] [address] * EXTRA LAVENDER (01/20/2025 7:35 AM EDT) Blood VENOUS BLOOD / Unknown Venipuncture / Unknown 01/20/2025 7:35 AM EDT 01/20/2025 8:33 AM EDT Tali Carmona MD HEMATOLOGY ORDERABLES Final Result Performing Organization Address [facility] Co de Phone Number [facility] [address] [place] [address] * (ABNORMAL) GLUCOSE METER POC (01/19/2025 8:22 PM EDT) Glucose Meter POC 187(H) 70 - 100 mg/dL 01/19/2025 8:23 PM EDT [facility] Sample Type Capillary 01/19/2025 8:23 PM EDT [facility] Patient Status Non-Critical Patient 01/19/2025 8:23 PM EDT [facility] Blood BLOOD SPECIMEN / Unknown 01/19/2025 8:22 PM EDT 01/19/2025 8:23 PM EDT us Harriet Godinez MD POINT OF CARE TEST ORDERABLES Fi nal Result Performing Organization Address [facility] de Phone Number [facility] [address] [place] [address] * ECG AND WAVEFORMS - TELEMETRY (01/19/2025 6:59 PM EDT) ECG INTERPRET NSR [facility] 01/19/2025 6:59 PM EDT Narrative [facility] - 01/19/2025 7:33 PM EDT ROUTINE/EW PA 0.20 QRS 0.11 RR 0.76 QT 0.40 QTc 0.46 See Clinical Report link for waveform capture Unknown Provider POINT OF CARE CARDIOLOGY Final Result Performing Organization Address [facility] Co de Phone Number [facility] [address] [place] [address] * (ABNORMAL) GLUCOSE METER POC (01/19/2025 5:19 PM EDT) Glucose Meter POC 204(H) 70 - 100 mg/dL 01/19/2025 5:21 PM EDT [facility] Sample Type Capillary 01/19/2025 5:21 PM EDT [facility] Patient Status Non-Critical Patient 01/19/2025 5:21 PM EDT [facility] Blood BLOOD SPECIMEN / Unknown 01/19/2025 5:19 PM EDT 01/19/2025 5:21 PM EDT Harriet Godinez MD POINT OF CARE TEST ORDERABLES Fi nal Result Performing Organization Address [facility] de Phone Number [facility] [address] [place] [address] * (ABNORMAL) GLUCOSE METER POC (01/19/2025 1:47 PM EDT) Glucose Meter POC 209(H) 70 - 100 mg/dL 01/19/2025 1:48 PM EDT [facility] Sample Type Capillary 01/19/2025 1:48 PM EDT [facility] Patient Status Non-Critical Patient 01/19/2025 1:48 PM EDT [facility] Blood BLOOD SPECIMEN / Unknown 01/19/2025 1:47 PM EDT 01/19/2025 1:48 PM EDT Harriet Godinez MD POINT OF CARE TEST ORDERABLES Fi nal Result Performing Organization Address [facility] de Phone Number [facility] [address] [place] [address] * (ABNORMAL) GLUCOSE METER POC (01/19/2025 8:12 AM EDT) Glucose Meter POC 151(H) 70 - 100 mg/dL 01/19/2025 8:14 AM EDT [facility] Sample Type Capillary 01/19/2025 8:14 AM EDT [facility] Patient Status Non-Critical Patient 01/19/2025 8:14 AM EDT [facility] Blood BLOOD SPECIMEN / Unknown 01/19/2025 8:12 AM EDT 01/19/2025 8:14 AM EDT Harriet Godinez MD POINT OF CARE TEST ORDERABLES Fi nal Result Performing Organization Address [facility] de Phone Number [facility] [address] [place] [address] * ECG AND WAVEFORMS - TELEMETRY (01/19/2025 7:32 AM EDT) [facility] ECG INTERPRET NSR [facility] 01/19/2025 7:32 AM EDT Narrative [facility] - 01/19/2025 7:50 AM EDT ROUTINE-BB PA 0.18 QRS 0.12 RR 0.91 QT 0.46 QTc 0.48 See Clinical Report link for waveform capture us Unknown Provider POINT OF CARE CARDIOLOGY Final Result Performing Organization Address [facility] de Phone Number [facility] [address] [place] [id number] * EXTRA LAVENDER (01/19/2025 6:28 AM EDT) Blood VENOUS BLOOD / Unknown Venipuncture / Unknown 01/19/2025 6:28 AM EDT 01/19/2025 7:02 AM EDT Harriet Godinez MD HEMATOLOGY ORDERABLES Final Resu lt Performing Organization Address [facility] de Phone Number [facility] [address] [place] [address] * (ABNORMAL) BASIC METABOLIC PANEL (01/19/2025 6:28 AM EDT) [facility] Sodium 136 136 - 145 mmol/L 01/19/2025 7:09 AM EDT [facility] Potassium 4.1 3.5 - 5.0 mmol/L 01/19/2025 7:09 AM EDT [facility] Chloride 103 98 - 107 mmol/L 01/19/2025 7:09 AM EDT [facility] Total CO2 22 22 - 29 mmol/L 01/19/2025 7:09 AM EDT [facility] Anion Gap 11 7 - 16 mmol/L 01/19/2025 7:09 AM EDT [facility] Calcium 7.7(L) 8.6 - 10.4 mg/dL 01/19/2025 7:09 AM EDT [facility] Glucose Lvl 149(H) 70 - 99 mg/dL 01/19/2025 7:09 AM EDT [facility] BUN 25(H) 6 - 20 mg/dL 01/19/2025 7:09 AM EDT [facility] Creatinine 1.65(H) 0.51 - 1.30 mg/dL 01/19/2025 7:09 AM EDT [facility] eGFR (CKD-EPIcr 2020) 39(L) >=60 mL/min/1.7 3 m2 01/19/2025 7:09 AM EDT [facility] Comment:Estimated GFR was ca lculated using the CKD-EPIcr (2020) equation refit without race. The equation is recommended by the [employer] Kid[employer] - [place] [employer] Nephrology Task Force. Blood VENOUS BLOOD / Unknown Venipuncture / Unknown 01/19/2025 6:28 AM EDT 01/19/2025 6:42 AM EDT us Harriet Godinez MD CHEMISTRY ORDERABLES Final Resul t [facility] [address] [place] [address] * (ABNORMAL) PT / INR (01/19/2025 6:28 AM EDT) PT 31.0(H) 10.5 - 13.6 second(s) 01/19/2025 7:05 AM EDT [facility] INR 2.64(H) 0.91 - 1.18 (ratio) 01/19/2025 7:05 AM EDT [facility] Comment: Level of Therapy Indications Target INR Range Standard Dose Treatment and prophylaxis of venous 2.0 - 3.0 thrombosis, pulmonary embolism High Dose High risk patients with mechanical 2.5 - 3.5 heart valves Blood VENOUS BLOOD / Unknown Venipuncture / Unknown 01/19/2025 6:28 AM EDT 01/19/2025 6:43 AM EDT Harriet oGdinez MD HEMATOLOGY ORDERABLES Final Resu lt Performing Organization Address [facility] de Phone Number [facility] [address] [place] [address] * (ABNORMAL) GLUCOSE METER POC (01/18/2025 9:38 PM EDT) Glucose Meter POC 194(H) 70 - 100 mg/dL 01/18/2025 9:39 PM EDT [facility] Sample Type Capillary 01/18/2025 9:39 PM EDT [facility] Patient Status Non-Critical Patient 01/18/2025 9:39 PM EDT [facility] Blood BLOOD SPECIMEN / Unknown 01/18/2025 9:38 PM EDT 01/18/2025 9:39 PM EDT Harriet Godinez MD POINT OF CARE TEST ORDERABLES Fi nal Result Performing Organization Address [facility] Phone Number [facility] [address] [place] [address] * ECG AND WAVEFORMS - TELEMETRY (01/18/2025 8:58 PM EDT) ECG INTERPRET NSR [facility] 01/18/2025 8:58 PM EDT Narrative [facility] - 01/18/2025 9:01 PM EDT TW/ROUTINE PA 0.20 QRS 0.09 RR 0.71 QT 0.38 See Clinical Report link for waveform capture us Unknown Provider POINT OF CARE CARDIOLOGY Final Result Performing Organization Address [facility] de Phone Number [facility] [address] [place] [address] * (ABNORMAL) GLUCOSE METER POC (01/18/2025 6:01 PM EDT) Glucose Meter POC 177(H) 70 - 100 mg/dL 01/18/2025 6:02 PM EDT [facility] Sample Type Capillary 01/18/2025 6:02 PM EDT [facility] Patient Status Non-Critical Patient 01/18/2025 6:02 PM EDT [facility] Blood BLOOD SPECIMEN / Unknown 01/18/2025 6:01 PM EDT 01/18/2025 6:02 PM EDT Harriet Godinez MD POINT OF CARE TEST ORDERABLES Fi nal Result Performing Organization Address [facility] Co de Phone Number [facility] [address] [place] [address] * (ABNORMAL) GLUCOSE METER POC (01/18/2025 12:54 PM EDT) Glucose Meter POC 189(H) 70 - 100 mg/dL 01/18/2025 12:55 PM EDT [facility] Sample Type Capillary 01/18/2025 12:55 PM EDT [facility] Patient Status Non-Critical Patient 01/18/2025 12:55 PM EDT [facility] Blood BLOOD SPECIMEN / Unknown 01/18/2025 12:54 PM EDT 01/18/2025 12:55 PM EDT Harriet Godinez MD POINT OF CARE TEST ORDERABLES Fi nal Result Performing Organization Address [facility]/ZIP Co de Phone Number [facility] [address] [place] [address] * (ABNORMAL) GLUCOSE METER POC (01/18/2025 9:22 AM EDT) Glucose Meter POC 140(H) 70 - 100 mg/dL 01/18/2025 9:23 AM EDT [facility] Sample Type Capillary 01/18/2025 9:23 AM EDT [facility] Patient Status Non-Critical Patient 01/18/2025 9:23 AM EDT [facility] Blood BLOOD SPECIMEN / Unknown 01/18/2025 9:22 AM EDT 01/18/2025 9:23 AM EDT Harriet Godinez MD POINT OF CARE TEST ORDERABLES Fi nal Result Performing Organization Address City/[facility]/ZIP Co de Phone Number [facility] [address] [place] [address] * ECG AND WAVEFORMS - TELEMETRY (01/18/2025 7:00 AM EDT) Pathologist [facility] ECG INTERPRET NSR [facility] 01/18/2025 7:00 AM EDT Narrative [facility] - 01/18/2025 8:28 AM EDT ROUTINE SDP PA 0.20 QRS 0.11 RR 0.84 QT 0.42 See Clinical Report link for waveform capture us Unknown Provider POINT OF CARE CARDIOLOGY Final Result Performing Organization Address [facility] Co de Phone Number [facility] [address] [place] [address] * (ABNORMAL) CBC (01/18/2025 6:25 AM EDT) WBC 8.2 3.7 - 10.3 x10(3)/mcL 01/18/2025 8:14 AM EDT [facility] RBC 3.95 3.90 - 5.20 x10(6)/mcL 01/18/2025 8:14 AM EDT [facility] Hgb 8.3(L) 11.2 - 15.7 g/dL 01/18/2025 8:14 AM EDT [facility] Hct 28.5(L) 34.0 - 45.0 % 01/18/2025 8:14 AM EDT [facility] MCV 72.2(L) 80.0 - 100.0 fL 01/18/2025 8:14 AM EDT [facility] MCH 21.0(L) 26.0 - 34.0 pg 01/18/2025 8:14 AM EDT [facility] MCHC 29.1(L) 30.7 - 35.5 g/dL 01/18/2025 8:14 AM EDT [facility] RDW 17.6(H) <=14.9 % 01/18/2025 8:14 AM EDT [facility] Platelet 286 155 - 369 x10(3)/mcL 01/18/2025 8:14 AM EDT [facility] MPV 11.3 8.8 - 12.5 fL 01/18/2025 8:14 AM EDT [facility] Blood VENOUS BLOOD / Unknown Venipuncture / Unknown 01/18/2025 6:25 AM EDT 01/18/2025 6:45 AM EDT us Harriet Godinez MD HEMATOLOGY ORDERABLES Final Resu lt [facility] [address] [place] [address] * (ABNORMAL) BASIC METABOLIC PANEL (01/18/2025 6:25 AM EDT) Sodium 136 136 - 145 mmol/L 01/18/2025 7:17 AM EDT [facility] Potassium 4.0 3.5 - 5.0 mmol/L 01/18/2025 7:17 AM EDT [facility] Chloride 102 98 - 107 mmol/L 01/18/2025 7:17 AM EDT [facility] Total CO2 22 22 - 29 mmol/L 01/18/2025 7:17 AM EDT [facility] Anion Gap 12 7 - 16 mmol/L 01/18/2025 7:17 AM EDT [facility] Calcium 7.6(L) 8.6 - 10.4 mg/dL 01/18/2025 7:17 AM EDT [facility] Glucose Lvl 149(H) 70 - 99 mg/dL 01/18/2025 7:17 AM EDT [facility] BUN 27(H) 6 - 20 mg/dL 01/18/2025 7:17 AM EDT [facility] Creatinine 1.77(H) 0.51 - 1.30 mg/dL 01/18/2025 7:17 AM EDT [facility] eGFR (CKD-EPIcr 2020) 36(L) >=60 mL/min/1.7 3 m2 01/18/2025 7:17 AM EDT [facility] Comment:Estimated GFR was ca lculated using the CKD-EPIcr (2020) equation refit without race. The equation is recommended by the [employer] Kid[employer] - [place] [employer] Neph[employer] Task Force. Blood VENOUS BLOOD / Unknown Venipuncture / Unknown 01/18/2025 6:25 AM EDT 01/18/2025 6:45 AM EDT us Harriet Godinez MD CHEMISTRY ORDERABLES Final Resul t Performing Organization Address [facility] de Phone Number [facility] [address] [place] [address] * EXTRA MINT GREEN LI (01/18/2025 6:25 AM EDT) Blood VENOUS BLOOD / Unknown Venipuncture / Unknown 01/18/2025 6:25 AM EDT 01/18/2025 6:45 AM EDT us Tali Carmona MD CHEMISTRY ORDERABLES Final R esult Performing Organization Address [facility] de Phone Number [facility] [address] [place] [address] * EXTRA LAVENDER (01/18/2025 6:25 AM EDT) Blood VENOUS BLOOD / Unknown Venipuncture / Unknown 01/18/2025 6:25 AM EDT 01/18/2025 6:45 AM EDT Tali Carmona MD HEMATOLOGY ORDERABLES Final Result Performing Organization Address [facility] de Phone Number [facility] [address] [place] [address] * (ABNORMAL) PT / INR (01/18/2025 6:25 AM EDT) PT 28.3(H) 10.5 - 13.6 second(s) 01/18/2025 7:02 AM EDT [facility] INR 2.42(H) 0.91 - 1.18 (ratio) 01/18/2025 7:02 AM EDT [facility] Comment: Level of Therapy Indications Target INR Range Standard Dose Treatment and prophylaxis of venous 2.0 - 3.0 thrombosis, pulmonary embolism High Dose High risk patients with mechanical 2.5 - 3.5 heart valves Blood VENOUS BLOOD / Unknown Venipuncture / Unknown 01/18/2025 6:25 AM EDT 01/18/2025 6:36 AM EDT Harriet Godinez MD HEMATOLOGY ORDERABLES Final Resu lt Performing Organization Address [facility] de Phone Number [facility] [address] [place] [address] * (ABNORMAL) GLUCOSE METER POC (01/17/2025 9:06 PM EDT) Glucose Meter POC 180(H) 70 - 100 mg/dL 01/17/2025 9:08 PM EDT [facility] Sample Type Capillary 01/17/2025 9:08 PM EDT [facility] Patient Status Non-Critical Patient 01/17/2025 9:08 PM EDT [facility] Blood BLOOD SPECIMEN / Unknown 01/17/2025 9:06 PM EDT 01/17/2025 9:08 PM EDT Harriet Godinez MD POINT OF CARE TEST ORDERABLES Fi nal Result Performing Organization Address [facility] de Phone Number [facility] [address] [place] [address] * ECG AND WAVEFORMS - TELEMETRY (01/17/2025 8:39 PM EDT) [facility] ECG INTERPRET NSR [facility] 01/17/2025 8:39 PM EDT Narrative [facility] - 01/17/2025 8:47 PM EDT ROUTINE/JF PA 0.17 QRS 0.10 RR 0.76 QT 0.42 QTc 0.48 See Clinical Report link for waveform capture us Unknown Provider POINT OF CARE CARDIOLOGY Final Result Performing Organization Address City/[facility] Co de Phone Number [facility] [address] [place] [address] * (ABNORMAL) GLUCOSE METER POC (01/17/2025 5:57 PM EDT) [facility] Glucose Meter POC 167(H) 70 - 100 mg/dL 01/17/2025 5:58 PM EDT [facility] Sample Type Capillary 01/17/2025 5:58 PM EDT [facility] Patient Status Non-Critical Patient 01/17/2025 5:58 PM EDT [facility] Blood BLOOD SPECIMEN / Unknown 01/17/2025 5:57 PM EDT 01/17/2025 5:58 PM EDT Harriet Godinez MD POINT OF CARE TEST ORDERABLES Fi nal Result Performing Organization Address City/[facility]/ZIP Co de Phone Number [facility] [address] [place] [address] * VANCOMYCIN LEVEL AUC2 (01/17/2025 2:24 PM EDT) [facility] Vancomycin AUC2 34.8 mcg/mL 3:03 PM EDT [facility] Blood VENOUS BLOOD / Unknown Venipuncture / Unknown 01/17/2025 2:24 PM EDT 01/17/2025 2:43 PM EDT Harriet Godinez MD CHEMISTRY ORDERABLES Final Resul t Performing Organization Address [facility] Co de Phone Number [facility] [address] [place] [address] * (ABNORMAL) GLUCOSE METER POC (01/17/2025 1:41 PM EDT) Glucose Meter POC 232(H) 70 - 100 mg/dL 01/17/2025 1:42 PM EDT [facility] Sample Type Capillary 01/17/2025 1:42 PM EDT [facility] Patient Status Non-Critical Patient 01/17/2025 1:42 PM EDT [facility] Blood BLOOD SPECIMEN / Unknown 01/17/2025 1:41 PM EDT 01/17/2025 1:42 PM EDT Harriet Godinez MD POINT OF CARE TEST ORDERABLES Fi nal Result Performing Organization Address [facility] Phone Number [facility] [address] [facility] [place] [address] * (ABNORMAL) GLUCOSE METER POC (01/17/2025 8:48 AM EDT) Glucose Meter POC 152(H) 70 - 100 mg/dL 01/17/2025 8:50 AM EDT [facility] Sample Type Capillary 01/17/2025 8:50 AM EDT [facility] Patient Status Non-Critical Patient 01/17/2025 8:50 AM EDT [facility] Blood BLOOD SPECIMEN / Unknown 01/17/2025 8:48 AM EDT 01/17/2025 8:50 AM EDT us Harriet Godinez MD POINT OF CARE TEST ORDERABLES Fi nal Result Performing Organization Address [facility] Co de Phone Number [facility] [address] [facility] [place] [address] * ECG AND WAVEFORMS - TELEMETRY (01/17/2025 7:32 AM EDT) [facility] ECG INTERPRET NSR [facility] 01/17/2025 7:32 AM EDT Narrative [facility] - 01/17/2025 7:34 AM EDT ROUTINE/SPECIAL SYSTEMS TECHNICIAN PA 0.19 QRS 0.07 RR 0.90 QT 0.42 QTc 0.44 See Clinical Report link for waveform capture us Unknown Provider POINT OF CARE CARDIOLOGY Final Result Performing Organization Address City/[facility]/ZIP Co de Phone Number [facility] [address] [place] [address] * VANCOMYCIN LEVEL AUC1 (01/17/2025 7:20 AM EDT) [facility] Vancomycin AUC1 37.4 mcg/mL 7:43 AM EDT [facility] Blood VENOUS BLOOD / Unknown Venipuncture / Unknown 01/17/2025 7:20 AM EDT 01/17/2025 7:25 AM EDT us Harriet Godinez MD CHEMISTRY ORDERABLES Final Resul t Performing Organization Address City/[facility] Co de Phone Number [facility] [address] [place] [address] * (ABNORMAL) BASIC METABOLIC PANEL (01/17/2025 7:20 AM EDT) [facility] Sodium 133(L) 136 - 145 mmol/L 01/17/2025 7:43 AM EDT [facility] Potassium 4.0 3.5 - 5.0 mmol/L 01/17/2025 7:43 AM EDT [facility] Chloride 101 98 - 107 mmol/L 01/17/2025 7:43 AM EDT [facility] Total CO2 20(L) 22 - 29 mmol/L 01/17/2025 7:43 AM EDT [facility] Anion Gap 12 7 - 16 mmol/L 01/17/2025 7:43 AM EDT [facility] Calcium 7.3(L) 8.6 - 10.4 mg/dL 01/17/2025 7:43 AM EDT [facility] Glucose Lvl 159(H) 70 - 99 mg/dL 01/17/2025 7:43 AM EDT [facility] BUN 24(H) 6 - 20 mg/dL 01/17/2025 7:43 AM EDT [facility] Creatinine 1.64(H) 0.51 - 1.30 mg/dL 01/17/2025 7:43 AM EDT [facility] eGFR (CKD-EPIcr 2020) 39(L) >=60 mL/min/1.7 3 m2 01/17/2025 7:43 AM EDT [facility] Comment:Estimated GFR was ca lculated using the CKD-EPIcr (2020) equation refit without race. The equation is recommended by the [employer] - [place] [employer] Task Force. Blood VENOUS BLOOD / Unknown Venipuncture / Unknown 01/17/2025 7:20 AM EDT 01/17/2025 7:25 AM EDT us Harriet Godinez MD CHEMISTRY ORDERABLES Final Resul t Performing Organization Address [facility] de Phone Number [facility] [address] [address] * EXTRA MINT GREEN LI (01/17/2025 6:18 AM EDT) Blood VENOUS BLOOD / Unknown Venipuncture / Unknown 01/17/2025 6:18 AM EDT 01/17/2025 7:47 AM EDT us Harriet Godinez MD CHEMISTRY ORDERABLES Final Resul t Performing Organization Address [facility] de Phone Number [facility] [address] [address] * EXTRA LAVENDER (01/17/2025 6:18 AM EDT) Blood VENOUS BLOOD / Unknown Venipuncture / Unknown 01/17/2025 6:18 AM EDT 01/17/2025 7:47 AM EDT Harriet Godinez MD HEMATOLOGY ORDERABLES Final Resu lt Performing Organization Address [facility] de Phone Number [facility] [address] [place] [address] * (ABNORMAL) PT / INR (01/17/2025 6:18 AM EDT) PT 23.8(H) 10.5 - 13.6 second(s) 01/17/2025 6:49 AM EDT [facility] INR 2.04(H) 0.91 - 1.18 (ratio) 01/17/2025 6:49 AM EDT [facility] Comment: Level of Therapy Indications Target INR Range Standard Dose Treatment and prophylaxis of venous 2.0 - 3.0 thrombosis, pulmonary embolism High Dose High risk patients with mechanical 2.5 - 3.5 heart valves Blood VENOUS BLOOD / Unknown Venipuncture / Unknown 01/17/2025 6:18 AM EDT 01/17/2025 6:37 AM EDT Harriet Godinez MD HEMATOLOGY ORDERABLES Final Resu lt Performing Organization Address [facility] de Phone Number [facility] [address] [place] [address] * (ABNORMAL) GLUCOSE METER POC (01/16/2025 9:25 PM EDT) Glucose Meter POC 185(H) 70 - 100 mg/dL 01/16/2025 9:26 PM EDT [facility] Sample Type Capillary 01/16/2025 9:26 PM EDT [facility] Patient Status Non-Critical Patient 01/16/2025 9:26 PM EDT [facility] Blood BLOOD SPECIMEN / Unknown 01/16/2025 9:25 PM EDT 01/16/2025 9:26 PM EDT Harriet Godinez MD POINT OF CARE TEST ORDERABLES Fi nal Result Performing Organization Address [facility]/ZIP Co de Phone Number [facility] [address] [place] [address] * ECG AND WAVEFORMS - TELEMETRY (01/16/2025 7:05 PM EDT) ECG INTERPRET NSR [facility] 01/16/2025 7:05 PM EDT Narrative [facility] - 01/16/2025 8:02 PM EDT ROUTINE/af PA 0.19 QRS 0.11 RR 0.82 QT 0.44 QTc 0.49 See Clinical Report link for waveform capture us Unknown Provider POINT OF CARE CARDIOLOGY Final Result Performing Organization Address [facility] de Phone Number [facility] [address] [place] [address] * (ABNORMAL) GLUCOSE METER POC (01/16/2025 6:05 PM EDT) Glucose Meter POC 195(H) 70 - 100 mg/dL 01/16/2025 6:07 PM EDT [facility] Sample Type Capillary 01/16/2025 6:07 PM EDT [facility] Patient Status Non-Critical Patient 01/16/2025 6:07 PM EDT [facility] Blood BLOOD SPECIMEN / Unknown 01/16/2025 6:05 PM EDT 01/16/2025 6:07 PM EDT Harriet Godinez MD POINT OF CARE TEST ORDERABLES Fi nal Result Performing Organization Address [facility] Co de Phone Number [facility] [address] [place] [address] * (ABNORMAL) GLUCOSE METER POC (01/16/2025 12:21 PM EDT) Glucose Meter POC 256(H) 70 - 100 mg/dL 01/16/2025 12:22 PM EDT [facility] Sample Type Capillary 01/16/2025 12:22 PM EDT [facility] Patient Status Non-Critical Patient 01/16/2025 12:22 PM EDT [facility] Blood BLOOD SPECIMEN / Unknown 01/16/2025 12:21 PM EDT 01/16/2025 12:22 PM EDT Harriet Godinez MD POINT OF CARE TEST ORDERABLES Fi nal Result Performing Organization Address [facility] de Phone Number [facility] [address] [place] [address] * (ABNORMAL) GLUCOSE METER POC (01/16/2025 8:29 AM EDT) Glucose Meter POC 215(H) 70 - 100 mg/dL 01/16/2025 8:30 AM EDT [facility] Sample Type Capillary 01/16/2025 8:30 AM EDT [facility] Patient Status Non-Critical Patient 01/16/2025 8:30 AM EDT [facility] Blood BLOOD SPECIMEN / Unknown 01/16/2025 8:29 AM EDT 01/16/2025 8:30 AM EDT Harriet Godinez MD POINT OF CARE TEST ORDERABLES Fi nal Result Performing Organization Address [facility] de Phone Number [facility] [address] [place] [address] * ECG AND WAVEFORMS - TELEMETRY (01/16/2025 7:31 AM EDT) ECG INTERPRET NSR [facility] 01/16/2025 7:31 AM EDT Narrative [facility] - 01/16/2025 7:34 AM EDT ROUTINE/PB PA 0.19 QRS 0.09 RR 0.86 QT 0.43 QTc 0.46 See Clinical Report link for waveform capture us Unknown Provider POINT OF CARE CARDIOLOGY Final Result Performing Organization Address [facility] de Phone Number [facility] [address] [place] [address] * (ABNORMAL) PT / INR (01/16/2025 4:42 AM EDT) Pathologist [facility] PT 22.1(H) 10.5 - 13.6 second(s) 01/16/2025 5:16 AM EDT [facility] INR 1.90(H) 0.91 - 1.18 (ratio) 01/16/2025 5:16 AM EDT [facility] Comment: Level of Therapy Indications Target INR Range Standard Dose Treatment and prophylaxis of venous 2.0 - 3.0 thrombosis, pulmonary embolism High Dose High risk patients with mechanical 2.5 - 3.5 heart valves Blood VENOUS BLOOD / Unknown Venipuncture / Unknown 01/16/2025 4:42 AM EDT 01/16/2025 5:02 AM EDT Harriet Godinez MD HEMATOLOGY ORDERABLES Final Resu lt [facility] [address] [place] [address] * (ABNORMAL) CBC WITH DIFF (01/16/2025 4:42 AM EDT) [facility] WBC 6.2 3.7 - 10.3 x10(3)/mc L 01/16/2025 5:09 AM EDT [facility] RBC 3.61(L) 3.90 - 5.20 x10(6)/mc L 01/16/2025 5:09 AM EDT [facility] Hgb 7.6(L) 11.2 - 15.7 g/dL 01/16/2025 5:09 AM EDT [facility] Hct 25.8(L) 34.0 - 45.0 % 01/16/2025 5:09 AM EDT [facility] MCV 71.5(L) 80.0 - 100.0 fL 01/16/2025 5:09 AM EDT [facility] MCH 21.1(L) 26.0 - 34.0 pg 01/16/2025 5:09 AM EDT [facility] MCHC 29.5(L) 30.7 - 35.5 g/dL 01/16/2025 5:09 AM EDT [facility] RDW 17.5(H) <=14.9 % 01/16/2025 5:09 AM EDT [facility] Platelet 259 155 - 369 x10(3)/mc L 01/16/2025 5:09 AM EDT [facility] MPV 10.7 8.8 - 12.5 fL 01/16/2025 5:09 AM EDT [facility] Neut Percent 64.8 % 01/16/2025 5:09 AM EDT [facility] Comment:Neutrophils equals s egs plus bands Imm Gran% 1.5 % 01/16/2025 5:09 AM EDT [facility] Comment:Automated count of m etamyelocytes, myelocytes and promyelocytes. IG >1% represents a left shift and provides an early indication of an infection or inflammatory process. Lymph Percent 17.8 % 01/16/2025 5:09 AM EDT [facility] [place] Percent 8.3 % 01/16/2025 5:09 AM EDT [facility] Eos Percent 6.8 % 01/16/2025 5:09 AM EDT [facility] Baso Percent 0.8 % 01/16/2025 5:09 AM EDT [facility] Neut # 4.0 1.6 - 6.1 x10(3)/mc L 01/16/2025 5:09 AM EDT [facility] Comment:Neutrophils equals s egs plus bands IMMGRAN# 0.1 0.0 - 0.1 x10(3)/mc L 01/16/2025 5:09 AM EDT [facility] Comment:Automated count of m etamyelocytes, myelocytes and promyelocytes. An absolute IG <0.1 is reported as 0.0. Lymph # 1.1(L) 1.2 - 3.9 x10(3)/mc L 01/16/2025 5:09 AM EDT [facility] [place] # 0.5 0.3 - 0.9 x10(3)/mc L 01/16/2025 5:09 AM EDT [facility] Eos# 0.4 0.0 - 0.5 x10(3)/mc L 01/16/2025 5:09 AM EDT [facility] Baso # 0.1 0.0 - 0.1 x10(3)/mc L 01/16/2025 5:09 AM EDT [facility] Blood VENOUS BLOOD / Unknown Venipuncture / Unknown 01/16/2025 4:42 AM EDT 01/16/2025 5:02 AM EDT us Harriet Godinez MD HEMATOLOGY ORDERABLES Final Resu lt [facility] [address] [place] [address] * (ABNORMAL) BASIC METABOLIC PANEL (01/16/2025 4:42 AM EDT) Sodium 132(L) 136 - 145 mmol/L 01/16/2025 5:27 AM EDT [facility] Potassium 3.8 3.5 - 5.0 mmol/L 01/16/2025 5:27 AM EDT [facility] Chloride 99 98 - 107 mmol/L 01/16/2025 5:27 AM EDT [facility] Total CO2 21(L) 22 - 29 mmol/L 01/16/2025 5:27 AM EDT [facility] Anion Gap 12 7 - 16 mmol/L 01/16/2025 5:27 AM EDT [facility] Calcium 7.1(L) 8.6 - 10.4 mg/dL 01/16/2025 5:27 AM EDT [facility] Glucose Lvl 256(H) 70 - 99 mg/dL 01/16/2025 5:27 AM EDT [facility] BUN 22(H) 6 - 20 mg/dL 01/16/2025 5:27 AM EDT [facility] Creatinine 1.44(H) 0.51 - 1.30 mg/dL 01/16/2025 5:27 AM EDT [facility] eGFR (CKD-EPIcr 2020) 46(L) >=60 mL/min/1.7 3 m2 01/16/2025 5:27 AM EDT [facility] Comment:Estimated GFR was ca lculated using the CKD-EPIcr (2020) equation refit without race. The equation is recommended by the [employer] - [place] [employer]ph[employer] Task Force. Blood VENOUS BLOOD / Unknown Venipuncture / Unknown 01/16/2025 4:42 AM EDT 01/16/2025 5:02 AM EDT Harriet Godinez MD CHEMISTRY ORDERABLES Final Resul t Performing Organization Address [facility] de Phone Number [facility] [address] [place] [address] * (ABNORMAL) GLUCOSE METER POC (01/15/2025 9:22 PM EDT) Glucose Meter POC 163(H) 70 - 100 mg/dL 01/15/2025 9:23 PM EDT [facility] Sample Type Capillary 01/15/2025 9:23 PM EDT [facility] Patient Status Non-Critical Patient 01/15/2025 9:23 PM EDT [facility] Blood BLOOD SPECIMEN / Unknown 01/15/2025 9:22 PM EDT 01/15/2025 9:23 PM EDT Harriet Godinez MD POINT OF CARE TEST ORDERABLES Fi nal Result Performing Organization Address [facility] Co de Phone Number [facility] [address] [place] [address] * ECG AND WAVEFORMS - TELEMETRY (01/15/2025 6:57 PM EDT) ECG INTERPRET NSR [facility] 01/15/2025 6:57 PM EDT Narrative [facility] - 01/15/2025 8:16 PM EDT ROUTINE PA 0.18 QRS 0.11 RR 0.76 QT 0.42 QTc 0.48 See Clinical Report link for waveform capture us Unknown Provider POINT OF CARE CARDIOLOGY Final Result Performing Organization Address [facility] de Phone Number [facility] [address] [place] [address] * (ABNORMAL) GLUCOSE METER POC (01/15/2025 6:19 PM EDT) Glucose Meter POC 185(H) 70 - 100 mg/dL 01/15/2025 6:21 PM EDT [facility] Sample Type Capillary 01/15/2025 6:21 PM EDT [facility] Patient Status Non-Critical Patient 01/15/2025 6:21 PM EDT [facility] Blood BLOOD SPECIMEN / Unknown 01/15/2025 6:19 PM EDT 01/15/2025 6:21 PM EDT Result [facility] Harriet Godinez MD POINT OF CARE TEST ORDERABLES Fi nal Result Performing Organization Address [facility] Phone Number [facility] [address] [place] [address] * VANCOMYCIN LEVEL AUC2 (01/15/2025 1:23 PM EDT) [facility] Vancomycin AUC2 31.5 mcg/mL 1:56 PM EDT [facility] Blood VENOUS BLOOD / Unknown Venipuncture / Unknown 01/15/2025 1:23 PM EDT 01/15/2025 1:34 PM EDT Harriet Godinez MD CHEMISTRY ORDERABLES Final Resul t Performing Organization Address [facility] de Phone Number [facility] [address] [place] [address] * (ABNORMAL) GLUCOSE METER POC (01/15/2025 12:39 PM EDT) [facility] Signature Glucose Meter POC 221(H) 70 - 100 mg/dL 01/15/2025 12:41 PM EDT [facility] Sample Type Capillary 01/15/2025 12:41 PM EDT [facility] Patient Status Non-Critical Patient 01/15/2025 12:41 PM EDT [facility] Blood BLOOD SPECIMEN / Unknown 01/15/2025 12:39 PM EDT 01/15/2025 12:41 PM EDT us Harriet Godinze MD POINT OF CARE TEST ORDERABLES Fi nal Result Performing Organization Address City/[facility] Co de Phone Number [facility] [address] [place] [address] * ECG AND WAVEFORMS - TELEMETRY (01/15/2025 9:30 AM EDT) ECG INTERPRET R [facility] 01/15/2025 9:30 AM EDT Narrative [facility] - 01/15/2025 10:34 AM EDT ADMIT/TB PA 0.18 QRS 0.09 RR 0.78 QT 0.38 QTc 0.43 See Clinical Report link for waveform capture us Unknown Provider POINT OF CARE CARDIOLOGY Final Result Performing Organization Address [place]/[facility] Co de Phone Number [facility] [address] [place] [id number] * ECG AND WAVEFORMS - TELEMETRY (01/15/2025 8:24 AM EDT) ECG INTERPRET NSR [facility] 01/15/2025 8:24 AM EDT Narrative [facility] - 01/15/2025 8:39 AM EDT ROUTINE/TB PA 0.16 QRS 0.08 RR 0.74 QT 0.40 QTc 0.47 See Clinical Report link for waveform capture us Unknown Provider POINT OF CARE CARDIOLOGY Final Result Performing Organization Address City/[facility]/ZIP Co de Phone Number [facility] [address] [place] [id number] * (ABNORMAL) GLUCOSE METER POC (01/15/2025 7:57 AM EDT) Glucose Meter POC 172(H) 70 - 100 mg/dL 01/15/2025 7:[address] [facility] Sample Type Capillary 01/15/2025 7:[address] [facility] Patient Status Non-Critical Patient 01/15/2025 7:[address] [facility] Blood BLOOD SPECIMEN / Unknown 01/15/2025 7:57 AM EDT 01/15/2025 7:59 AM EDT Harriet Godinez MD POINT OF CARE TEST ORDERABLES Fi nal Result Performing Organization Address [facility] Phone Number [facility] [address] [place] [address] * (ABNORMAL) PT / INR (01/15/2025 6:39 AM EDT) PT 19.2(H) 10.5 - 13.6 second(s) 01/15/2025 7:34 AM EDT [facility] INR 1.65(H) 0.91 - 1.18 (ratio) 01/15/2025 7:34 AM EDT [facility] Comment: Level of Therapy Indications Target INR Range Standard Dose Treatment and prophylaxis of venous 2.0 - 3.0 thrombosis, pulmonary embolism High Dose High risk patients with mechanical 2.5 - 3.5 heart valves Blood VENOUS BLOOD / Unknown Venipuncture / Unknown 01/15/2025 6:39 AM EDT 01/15/2025 7:14 AM EDT Harriet Godinez MD HEMATOLOGY ORDERABLES Final Resu lt Performing Organization Address [facility] de Phone Number [facility] [address] [place] [address] * VANCOMYCIN LEVEL AUC1 (01/15/2025 6:39 AM EDT) Pathologist [facility] Vancomycin AUC1 41.4 mcg/mL 7:39 AM EDT [facility] Blood VENOUS BLOOD / Unknown Venipuncture / Unknown 01/15/2025 6:39 AM EDT 01/15/2025 7:15 AM EDT Harriet Godinez MD CHEMISTRY ORDERABLES Final Resul t [facility] [address] [place] [address] * (ABNORMAL) CBC WITH DIFF (01/15/2025 6:39 AM EDT) [facility] WBC 7.3 3.7 - 10.3 x10(3)/mcL 01/15/2025 7:20 AM EDT [facility] RBC 3.75(L) 3.90 - 5.20 x10(6)/mcL 01/15/2025 7:20 AM EDT [facility] Hgb 8.0(L) 11.2 - 15.7 g/dL 01/15/2025 7:20 AM EDT [facility] Hct 26.9(L) 34.0 - 45.0 % 01/15/2025 7:20 AM EDT [facility] MCV 71.7(L) 80.0 - 100.0 fL 01/15/2025 7:20 AM EDT [facility] MCH 21.3(L) 26.0 - 34.0 pg 01/15/2025 7:20 AM EDT [facility] MCHC 29.7(L) 30.7 - 35.5 g/dL 01/15/2025 7:20 AM EDT [facility] RDW 17.4(H) <=14.9 % 01/15/2025 7:20 AM EDT [facility] Platelet 266 155 - 369 x10(3)/mcL 01/15/2025 7:20 [facility] MPV 10.8 8.8 - 12.5 fL 01/15/2025 7:20 AM EDT [facility] Neut Percent 75.7 % 01/15/2025 7:20 AM EDT [facility] Comment:Neutrophils equals s egs plus bands Imm Gran% 0.8 % 01/15/2025 7:20 AM EDT [facility] Comment:Automated count of m etamyelocytes, myelocytes and promyelocytes. Lymph Percent 12.6 % 01/15/2025 7:20 AM EDT [facility] [place] Percent 6.7 % 01/15/2025 7:20 AM EDT [facility] Eos Percent 3.8 % 01/15/2025 7:20 AM EDT [facility] Baso Percent 0.4 % 01/15/2025 7:20 AM EDT [facility] Neut # 5.5 1.6 - 6.1 x10(3)/mcL 01/15/2025 7:20 AM EDT [facility] Comment:Neutrophils equals s egs plus bands IMMGRAN# 0.1 0.0 - 0.1 x10(3)/[facility] 01/15/2025 7:20 AM EDT [facility] Comment:Automated count of m etamyelocytes, myelocytes and promyelocytes. An absolute IG <0.1 is reported as 0.0. Lymph # 0.9(L) 1.2 - 3.9 x10(3)/mcL 01/15/2025 7:20 AM EDT [facility] [place] # 0.5 0.3 - 0.9 x10(3)/[facility] 01/15/2025 7:20 [facility] Eos# 0.3 0.0 - 0.5 x10(3)/[facility] 01/15/2025 7:20 AM EDT [facility] Baso # 0.0 0.0 - 0.1 x10(3)/[facility] 01/15/2025 7:20 AM [facility] Blood VENOUS BLOOD / Unknown Venipuncture / Unknown 01/15/2025 6:39 AM EDT 01/15/2025 7:14 AM EDT us Harriet Godinez MD HEMATOLOGY ORDERABLES Final Resu lt [facility] [address] [place] [address] * (ABNORMAL) BASIC METABOLIC PANEL (01/15/2025 6:39 AM EDT) Sodium 134(L) 136 - 145 mmol/L 01/15/2025 7:39 AM EDT [facility] Potassium 3.9 3.5 - 5.0 mmol/L 01/15/2025 7:39 AM EDT [facility] Chloride 100 98 - 107 mmol/L 01/15/2025 7:39 AM EDT [facility] Total CO2 22 22 - 29 mmol/L 01/15/2025 7:39 AM EDT [facility] Anion Gap 12 7 - 16 mmol/L 01/15/2025 7:39 AM EDT [facility] Calcium 7.3(L) 8.6 - 10.4 mg/dL 01/15/2025 7:39 AM EDT [facility] Glucose Lvl 177(H) 70 - 99 mg/dL 01/15/2025 7:39 AM EDT [facility] BUN 17 6 - 20 mg/dL 01/15/2025 7:39 AM EDT [facility] Creatinine 1.20 0.51 - 1.30 mg/dL 01/15/2025 7:39 AM EDT [facility] eGFR (CKD-EPIcr 2020) 57(L) >=60 mL/min/1.7 3 m2 01/15/2025 7:39 AM EDT [facility] Comment:Estimated GFR was ca lculated using the CKD-EPIcr (2020) equation refit without race. The equation is recommended by the [employer] Kid[employer] - [place] [employer] Neph[employer] Task Force. Blood VENOUS BLOOD / Unknown Venipuncture / Unknown 01/15/2025 6:39 AM EDT 01/15/2025 7:15 AM EDT Harriet Godinez MD CHEMISTRY ORDERABLES Final Resul t Performing Organization Address [facility] de Phone Number [facility] [address] [place] [address] * (ABNORMAL) GLUCOSE METER POC (01/15/2025 12:17 AM EDT) [facility] Glucose Meter POC 256(H) 70 - 100 mg/dL 01/15/2025 12:19 AM EDT [facility] Sample Type Capillary 01/15/2025 12:19 AM EDT [facility] Patient Status Non-Critical Patient 01/15/2025 12:19 AM EDT [facility] Blood BLOOD SPECIMEN / Unknown 01/15/2025 12:17 AM EDT 01/15/2025 12:19 AM EDT Harriet Godinez MD POINT OF CARE TEST ORDERABLES Fi nal Result Performing Organization Address [facility] de Phone Number [facility] [address] [place] [address] * ECG AND WAVEFORMS - TELEMETRY (01/14/2025 7:08 PM EDT) [facility] ECG INTERPRET NSR [facility] 01/14/2025 7:08 PM EDT Narrative [facility] - 01/14/2025 7:54 PM EDT ROUTINE PA 0.16 QRS 0.12 RR 0.73 QT 0.40 QTc 0.46 See Clinical Report link for waveform capture Unknown Provider POINT OF CARE CARDIOLOGY Final Result Performing Organization Address [facility] Co de Phone Number [facility] [address] [place] [address] * VANCOMYCIN LEVEL AUC2 (01/14/2025 6:35 PM EDT) Pathologist [facility] Vancomycin AUC2 35.7 mcg/mL 07/11/202 5 6:59 PM EDT [facility] Blood VENOUS BLOOD / Unknown Venipuncture / Unknown 01/14/2025 6:35 PM EDT 01/14/2025 6:40 PM EDT Harriet Godinez MD CHEMISTRY ORDERABLES Final Resul t Performing Organization Address [facility] de Phone Number [facility] [address] [place] [address] * (ABNORMAL) GLUCOSE METER POC (01/14/2025 5:55 PM EDT) Glucose Meter POC 157(H) 70 - 100 mg/dL 01/14/2025 5:57 PM EDT [facility] Sample Type Capillary 01/14/2025 5:57 PM EDT [facility] Patient Status Non-Critical Patient 01/14/2025 5:57 PM EDT [facility] Blood BLOOD SPECIMEN / Unknown 01/14/2025 5:55 PM EDT 01/14/2025 5:57 PM EDT Harriet Godinez MD POINT OF CARE TEST ORDERABLES Fi nal Result Performing Organization Address [facility] Phone Number [facility] [address] [place] [address] * VANCOMYCIN LEVEL AUC1 (01/14/2025 1:46 PM EDT) [facility] Vancomycin AUC1 33.4 mcg/mL 2:49 PM EDT [facility] Blood VENOUS BLOOD / Unknown Venipuncture / Unknown 01/14/2025 1:46 PM EDT 01/14/2025 2:26 PM EDT Rolando Yarbrough MD CHEMISTRY ORDERABLES Fi nal Result Performing Organization Address [facility] de Phone Number [facility] [address] [place] [address] * (ABNORMAL) GLUCOSE METER POC (01/14/2025 12:52 PM EDT) Glucose Meter POC 273(H) 70 - 100 mg/dL 01/14/2025 12:54 PM EDT [facility] Sample Type Capillary 01/14/2025 12:54 PM EDT [facility] Patient Status Non-Critical Patient 01/14/2025 12:54 PM EDT [facility] Blood BLOOD SPECIMEN / Unknown 01/14/2025 12:52 PM EDT 01/14/2025 12:54 PM EDT Harriet Godinez MD POINT OF CARE TEST ORDERABLES Fi nal Result Performing Organization Address [facility] de Phone Number [facility] [address] [place] [address] * SCANNED EKG (01/14/2025 9:59 AM EDT) Anatomical Region Laterality Modality Other 01/14/2025 9:59 AM EDT us Unknown Provider IMG ECG ORDERABLES Final Result * (ABNORMAL) GLUCOSE METER POC (01/14/2025 9:23 AM EDT) Glucose Meter POC 200(H) 70 - 100 mg/dL 01/14/2025 9:25 AM EDT [facility] Sample Type Capillary 01/14/2025 9:25 AM EDT [facility] Patient Status Non-Critical Patient 01/14/2025 9:25 AM EDT [facility] Blood BLOOD SPECIMEN / Unknown 01/14/2025 9:23 AM EDT 01/14/2025 9:25 AM EDT us Harriet Godinez MD POINT OF CARE TEST ORDERABLES Fi nal Result Performing Organization Address [facility] Co de Phone Number [facility] [address] [place] [address] * ECG AND WAVEFORMS - TELEMETRY (01/14/2025 7:00 AM EDT) [facility] ECG INTERPRET NSR [facility] 01/14/2025 7:00 AM EDT Narrative [facility] - 01/14/2025 9:00 AM EDT RS, ROUTINE PA 0.19 QRS 0.07 RR 0.78 QT 0.42 QTc 0.47 See Clinical Report link for waveform capture us Unknown Provider POINT OF CARE CARDIOLOGY Final Result [facility] [address] [place] [address] * (ABNORMAL) PT / INR (01/14/2025 6:41 AM EDT) [facility] PT 23.2(H) 10.5 - 13.6 second(s) 01/14/2025 7:18 AM EDT [facility] INR 1.99(H) 0.91 - 1.18 (ratio) 01/14/2025 7:18 AM EDT [facility] Comment: Level of Therapy Indications Target INR Range Standard Dose Treatment and prophylaxis of venous 2.0 - 3.0 thrombosis, pulmonary embolism High Dose High risk patients with mechanical 2.5 - 3.5 heart valves Blood VENOUS BLOOD / Unknown Venipuncture / Unknown 01/14/2025 6:41 AM EDT 01/14/2025 6:48 AM EDT Harriet Godinez MD HEMATOLOGY ORDERABLES Final Resu lt [facility] [address] [facility] [place] [address] * (ABNORMAL) CBC WITH DIFF (01/14/2025 6:41 AM EDT) Pathologist [facility] WBC 8.9 3.7 - 10.3 x10(3)/mcL 01/14/2025 6:51 AM EDT [facility] RBC 3.88(L) 3.90 - 5.20 x10(6)/mcL 01/14/2025 6:51 AM EDT [facility] Hgb 8.3(L) 11.2 - 15.7 g/dL 01/14/2025 6:51 AM EDT [facility] Hct 27.7(L) 34.0 - 45.0 % 01/14/2025 6:51 AM EDT [facility] MCV 71.4(L) 80.0 - 100.0 fL 01/14/2025 6:51 AM EDT [facility] MCH 21.4(L) 26.0 - 34.0 pg 01/14/2025 6:51 AM EDT [facility] MCHC 30.0(L) 30.7 - 35.5 g/dL 01/14/2025 6:51 AM EDT [facility] RDW 17.4(H) <=14.9 % 01/14/2025 6:51 AM EDT [facility] Platelet 248 155 - 369 x10(3)/mcL 01/14/2025 6:51 AM EDT [facility] MPV 10.8 8.8 - 12.5 fL 01/14/2025 6:51 AM EDT [facility] Neut Percent 83.9 % 01/14/2025 6:51 AM EDT [facility] Comment:Neutrophils equals s egs plus bands Imm Gran% 0.4 % 01/14/2025 6:51 AM EDT [facility] Comment:Automated count of m etamyelocytes, myelocytes and promyelocytes. Lymph Percent 10.7 % 01/14/2025 6:51 AM EDT [facility] [place] Percent 4.5 % 01/14/2025 6:51 AM EDT [facility] Eos Percent 0.3 % 01/14/2025 6:51 AM EDT [facility] Baso Percent 0.2 % 01/14/2025 6:51 AM EDT [facility] Neut # 7.5(H) 1.6 - 6.1 x10(3)/mcL 01/14/2025 6:51 AM EDT [facility] Comment:Neutrophils equals s egs plus bands IMMGRAN# 0.0 0.0 - 0.1 x10(3)/[facility] 01/14/2025 6:51 AM EDT [facility] Comment:Automated count of m etamyelocytes, myelocytes and promyelocytes. An absolute IG <0.1 is reported as 0.0. Lymph # 1.0(L) 1.2 - 3.9 x10(3)/[facility] 01/14/2025 6:51 AM EDT [facility] [place] # 0.4 0.3 - 0.9 x10(3)/[facility] 01/14/2025 6:51 AM EDT [facility] Eos# 0.0 0.0 - 0.5 x10(3)/[facility] 01/14/2025 6:51 AM EDT [facility] Baso # 0.0 0.0 - 0.1 x10(3)/[facility] 01/14/2025 6:51 AM EDT [facility] Blood VENOUS BLOOD / Unknown Venipuncture / Unknown 01/14/2025 6:41 AM EDT 01/14/2025 6:48 AM EDT us Harriet Godinez MD HEMATOLOGY ORDERABLES Final Resu lt [facility] [address] [place] [address] * (ABNORMAL) BASIC METABOLIC PANEL (01/14/2025 6:41 AM EDT) Sodium 136 136 - 145 mmol/L 01/14/2025 7:08 AM EDT [facility] Potassium 3.9 3.5 - 5.0 mmol/L 01/14/2025 7:08 AM EDT [facility] Chloride 103 98 - 107 mmol/L 01/14/2025 7:08 AM EDT [facility] Total CO2 21(L) 22 - 29 mmol/L 01/14/2025 7:08 AM EDT [facility] Anion Gap 12 7 - 16 mmol/L 01/14/2025 7:08 AM EDT [facility] Calcium 7.3(L) 8.6 - 10.4 mg/dL 01/14/2025 7:08 AM EDT [facility] Glucose Lvl 181(H) 70 - 99 mg/dL 01/14/2025 7:08 AM EDT [facility] BUN 16 6 - 20 mg/dL 01/14/2025 7:08 AM EDT [facility] Creatinine 1.14 0.51 - 1.30 mg/dL 01/14/2025 7:08 AM EDT [facility] eGFR (CKD-EPIcr 2020) 61 >=60 mL/min/1.7 3 m2 01/14/2025 7:08 AM EDT [facility] Comment:Estimated GFR was ca lculated using the CKD-EPIcr (2020) equation refit without race. The equation is recommended by the National Kidney [employer] - [place] [employer] of Nephrology Task Force. Blood VENOUS BLOOD / Unknown Venipuncture / Unknown 01/14/2025 6:41 AM EDT 01/14/2025 6:48 AM EDT Harriet Godinez MD CHEMISTRY ORDERABLES Final Resul t [facility] [address] [place] [address] * (ABNORMAL) GLUCOSE METER POC (01/13/2025 10:24 PM EDT) Glucose Meter POC 232(H) 70 - 100 mg/dL 01/13/2025 10:25 PM EDT [facility] Sample Type Capillary 01/13/2025 10:25 PM EDT [facility] Patient Status Non-Critical Patient 01/13/2025 10:25 PM EDT [facility] Blood BLOOD SPECIMEN / Unknown 01/13/2025 10:24 PM EDT 01/13/2025 10:25 PM EDT Harriet Godinez MD POINT OF CARE TEST ORDERABLES Fi nal Result Performing Organization Address [facility] de Phone Number [facility] [address] [place] [address] * (ABNORMAL) GLUCOSE METER POC (01/13/2025 7:28 PM EDT) [facility] Glucose Meter POC 187(H) 70 - 100 mg/dL 01/13/2025 7:29 PM EDT [facility] Sample Type Capillary 01/13/2025 7:29 PM EDT [facility] Patient Status Non-Critical Patient 01/13/2025 7:29 PM EDT [facility] Blood BLOOD SPECIMEN / Unknown 01/13/2025 7:28 PM EDT 01/13/2025 7:29 PM EDT Harriet Godinez MD POINT OF CARE TEST ORDERABLES Fi nal Result Performing Organization Address [facility] de Phone Number [facility] [address] [place] [address] * ECG AND WAVEFORMS - TELEMETRY (01/13/2025 7:00 PM EDT) [facility] ECG INTERPRET NSR [facility] 01/13/2025 7:00 PM EDT Narrative [facility] - 01/13/2025 8:13 PM EDT ROUTINE (MS) PA 0.15 QRS 0.09 RR 0.64 QT 0.38 QTc 0.48 See Clinical Report link for waveform capture us Unknown Provider POINT OF CARE CARDIOLOGY Final Result Performing Organization Address [facility] Co de Phone Number [facility] [address] [place] [address] * STAPHYLOCOCCUS AUREUS SCREEN (01/13/2025 5:36 PM EDT) [facility] Staph aureus PCR Not Detected Not Detected 01/14/2025 7:31 AM EDT [facility] MRSA PCR Not Detected Not Detected 01/14/2025 7:31 AM EDT [facility] [employer] [facility] Swab BOTH ANTERIOR NARES / Unknown 01/13/2025 5:36 PM EDT 01/14/2025 12:04 AM EDT Narrative [facility] [employer] [facility] - 01/14/2025 7:31 AM EDT Staphylococcus aureus target DNA sequence is not detected. This qualitative assay is intended for the detection of Staphylococcus aureus proprietary sequences for the staphylococcal protein A (spa) gene, the gene for methicillin resistance (mecA), and the staphylococcal cassette chromosome mec (SCCmec) inserted into the SA chromosomal attB site. This assay utilizes real time PCR on the [employer] GeneXpert Infinity, and its performance has been verified by the [facility]. A negative result does not rule out the presence of the Staphylococcus aureus or Methicillin resistant Staphylococcus aureus in concentrations below the limit of detection for the assay. This assay is FDA cleared to test on nares swabs collected on patients >21 years of age. Testing on patients < 21 years of age and on umbilicus sources is not FDA approved by this methodology, but has been developed and validated by the [facility] laboratory. Detailed methodology is available upon request. Harriet Godinez MD MICROBIOLOGY - GENERAL ORDERABLE S Final Result [facility] [employer] [address] , [place] [address] * (ABNORMAL) GLUCOSE METER POC (01/13/2025 3:10 PM EDT) [facility] Signature Glucose Meter POC 147(H) 70 - 100 mg/dL 01/13/2025 6:27 PM EDT [facility] Sample Type Capillary 01/13/2025 6:27 PM EDT [facility] Patient Status Non-Critical Patient 01/13/2025 6:27 PM EDT [facility] Blood BLOOD SPECIMEN / Unknown 01/13/2025 3:10 PM EDT 01/13/2025 6:27 PM EDT Harriet Godinez MD POINT OF CARE TEST ORDERABLES Fi nal Result Performing Organization Address City/[facility] Co de Phone Number [facility] [address] [place] [address] * ECG AND WAVEFORMS - TELEMETRY (01/13/2025 1:31 PM EDT) [facility] ECG INTERPRET NSR [facility] 01/13/2025 1:31 PM EDT Narrative [facility] - 01/13/2025 1:33 PM EDT [facility] - ADMIT PA 0.18 QRS 0.10 RR 0.68 QT 0.39 QTc 0.47 See Clinical Report link for waveform capture us Unknown Provider POINT OF CARE CARDIOLOGY Final Result Performing Organization Address [facility] de Phone Number [facility] [address] [place] [address] * (ABNORMAL) BLOOD GAS, VENOUS (01/13/2025 9:59 AM EDT) [facility] pH Venous 7.43(H) 7.32 - 7.42 pH 01/13/2025 10:08 AM EDT [facility] pCO2 Venous 38(L) 41 - 51 mmHg 01/13/2025 10:08 AM EDT [facility] pO2 Venous 31 25 - 40 mmHg 01/13/2025 10:08 AM EDT [facility] Comment:Interpret with cauti on. Not recommended to evaluate patient's oxygenation status. Base Excess David 0.5 mmol/L 10:08 AM EDT [facility] Hco3 Venous 24.8 24.0 - 28.0 mmol/L 01/13/2025 10:08 AM EDT [facility] CO2 Total David 23(L) 25 - 29 mmol/L 01/13/2025 10:08 AM EDT [facility] O2 Sat. Venous 62.9 40.0 - 70.0 % 01/13/2025 10:08 AM EDT [facility] Inspired O2 RA 01/13/2025 10:08 AM EDT [facility] Blood VENOUS BLOOD / Unknown Venipuncture / Unknown 01/13/2025 9:59 AM EDT 01/13/2025 10:03 AM EDT us Olvin Yarbrough MD CHEMISTRY ORDERABLES Zayra l Result Performing Organization Address [facility] Co de Phone Number [facility] [address] [place] [address] * BLOOD CULTURE (NO STAIN) (01/13/2025 9:59 AM EDT) Culture Result No Growth at 120 hours. BLOOD CULTURE (NO STAIN) 01/18/2025 4:00 PM EDT [email or web address] Blood VENOUS BLOOD / Unknown Venipuncture / Unknown 01/13/2025 9:59 AM EDT 01/13/2025 10:02 AM EDT Olvin Yarbrough MD MICROBIOLOGY - GENERAL OR DERABLES Final Result Performing Organization Address City/[facility] Co de Phone Number [email or web address] [address] [facility], [place] [address] * (ABNORMAL) PROCALCITONIN (01/13/2025 9:45 AM EDT) Procalcitonin 0.56(H) <=0.49 ng/mL 01/13/2025 10:30 AM EDT [facility] Blood VENOUS BLOOD / Unknown Venipuncture / Unknown 01/13/2025 9:45 AM EDT 01/13/2025 9:55 AM EDT Narrative [facility] - 01/13/2025 10:30 AM EDT Procalcitonin <0.50 ng/mL: Procalcitonin levels below 0.50 ng/mL on the first day of ICU admission represent a low risk for progression to severe sepsis and/or septic shock Procalcitonin >=0.50 ng/mL and <=2.00 ng/mL: If the procalcitonin measurement is performed shortly after the systemic infection process has started (usually less than 6 hours), this value may still be low. As various non-infectious conditions are known to induce procalcitonin as well, procalcitonin levels between 0.50 ng/mL and 2.00 ng/mL should be reviewed carefully to take into account the specific clinical background and condition(s) of the patient. Procalcitonin >2.00 ng/mL: Procalcitonin levels above 2.00 ng/mL on the first day of ICU admission represent a high risk for progression to severe sepsis and/or septic shock. Olvin Yarbrough MD CHEMISTRY ORDERABLES Zayra l Result Performing Organization Address [facility] de Phone Number [facility] [address] [place] [address] * BLOOD CULTURE (NO STAIN) (01/13/2025 9:45 AM EDT) Culture Result No Growth at 120 hours. BLOOD CULTURE (NO STAIN) 01/18/2025 4:00 PM EDT [email or web address] Blood VENOUS BLOOD / Unknown Venipuncture / Unknown 01/13/2025 9:45 AM EDT 01/13/2025 9:56 AM EDT Olvin Yarbrough MD MICROBIOLOGY - GENERAL OR DERABLES Final Result Performing Organization Address [facility] de Phone Number [email or web address] [address] [place] [address] , [address] [place] [id number] * (ABNORMAL) TROPONIN-T HIGH SENSITIVITY 2HR (01/13/2025 9:45 AM EDT) [id number]-[id number]-H 2HR 22(H) <14 ng/L 01/13/2025 10:36 AM EDT [facility] hs-cTnT 2Hr Delta from Baseline -2 <4 ng/L 01/13/2025 10:36 AM EDT [facility] Blood VENOUS BLOOD / Unknown Venipuncture / Unknown 01/13/2025 9:45 AM EDT 01/13/2025 9:55 AM EDT Narrative [facility] - 01/13/2025 10:36 AM EDT Ingestion of tom doses of biotin (>5 mg/day) taken within 8 hours of drawing blood sample can interfere with this immunoassay test. us Olvin Yarbrough MD CHEMISTRY ORDERABLES Zayra valencia Result [facility] [address] [facility] [place] [address] * CT ANGIOGRAM PULMONARY W CONTRAST (01/13/2025 8:15 AM EDT) Anatomical Region Laterality Modality Chest Computed Tomogra phy 01/13/2025 8:15 AM EDT Impressions 01/13/2025 8:40 AM EDT Limited study secondary to body habitus. Right lung pneumonia. No definite pulmonary embolism. - Note: Radiology results need to be interpreted within a comprehensive clinical context. If you have questions about the radiology report, please contact the office of the ordering clinician. Narrative 01/13/2025 8:[address] PULMONARY ANGIOGRAM, 01/13/2025 8:15 AM CLINICAL HISTORY: -soa with factor V. COMPARISON: None. TECHNIQUE: PE protocol CT angiogram of the chest using Isovue 370 IV contrast as recorded in [id number]. 2-D multiplanar reconstructions and 3-D MIP reconstructions reviewed. Dose 1 : CT DLP Total : 760.63 mGycm DLP Spiral Max : 728.76 mGycm Maximum CTDI Vol : 22.34 mGy FINDINGS: Significantly limited study due to technical and/or patient factors. Circulation peripheral to the right and left main pulmonary arteries is poorly assessed. No acute pulmonary embolism. No aortic arch aneurysm. Upper lobe infiltrate and right lower lobe infiltrate noted most compatible with pneumonia. The right middle lobe is spared. The left lung is spared. No pleural fluid. No suspicious pulmonary nodule or mediastinal mass lesion. Coronary artery calcification: None. Procedure Note Kenya Garcia MD - 01/13/2025 CT PULMONARY ANGIOGRAM, 01/13/2025 8:15 AM CLINICAL HISTORY: -soa with factor V. COMPARISON: None. TECHNIQUE: PE protocol CT angiogram of the chest using Isovue 370 IVcontrast as recorded in EPIC. 2-D multiplanar reconstructions and 3-D MIP reconstructions reviewed. Dose 1 : CT DLP Total : 760.63 mGycm DLP Spiral Max : 728.76 mGycm Maximum CTDI Vol : 22.34 mGy FINDINGS: Significantly limited study due to technical and/or patientfactors. Circulation peripheral to the right and left main pulmonary arteries ispoorly assessed. No acute pulmonary embolism. No aortic arch aneurysm. Upper lobe infiltrate and right lower lobe infiltrate noted mostcompatible with pneumonia. The right middle lobe is spared. The left lung is spared. Nopleural fluid. No suspicious pulmonary nodule or mediastinal mass lesion. Coronary artery calcification: None. IMPRESSION: Limited study secondary to body habitus. Right lung pneumonia. No definite pulmonary embolism. - Note: Radiology results need to be interpreted within a comprehensiveclinical context. If you have questions about the radiology report, please contactthe office of the ordering clinician. Olvin Yarbrough MD IMG CT ORDERABLES Final R esult * [id number] A/B (01/13/2025 7:30 AM EDT) [facility] CORONAVIRUS [id number] Not Detected Not Detected 01/13/2025 8:51 AM EDT [facility] Influenza A DNA Not Detected Not Detected 01/13/2025 8:51 AM EDT [facility] Influenza B DNA Not Detected Not Detected 01/13/2025 8:51 AM EDT [facility] Swab BOTH ANTERIOR NARES / Unknown 01/13/2025 7:30 AM EDT 01/13/2025 7:30 AM EDT Olvin Yarbrough MD MICROBIOLOGY - GENERAL OR DERABLES Final Result [facility] [address] [place] [address] * LACTIC ACID (01/13/2025 7:25 AM EDT) [facility] Lactic Acid 1.5 0.5 - 1.9 mmol/L 01/13/2025 7:50 AM EDT [facility] Blood VENOUS BLOOD / Unknown Venipuncture / Unknown 01/13/2025 7:25 AM EDT 01/13/2025 7:30 AM EDT Olvin Yarbrough MD CHEMISTRY ORDERABLES Zayra l Result Performing Organization Address [facility] de Phone Number [address] [address] * (ABNORMAL) PT / INR (01/13/2025 7:14 AM EDT) [facility] PT 50.3(H) 10.5 - 13.6 second(s) 01/13/2025 7:44 AM EDT [facility] INR 4.25(H) 0.91 - 1.18 (ratio) 01/13/2025 7:44 AM EDT [facility] Blood VENOUS BLOOD / Unknown Venipuncture / Unknown 01/13/2025 7:14 AM EDT 01/13/2025 7:17 AM EDT Olvin Yarbrough MD HEMATOLOGY ORDERABLES Fin al Result Performing Organization Address [facility] de Phone Number [address] [address] * HUMAN CHORIONIC GONADOTROPIN QUANTITATIVE (01/13/2025 7:14 AM EDT) [facility] Hcg Quant <1 <5 mIU/mL 01/13/2025 7:36 AM EDT [facility] Blood VENOUS BLOOD / Unknown Venipuncture / Unknown 01/13/2025 7:14 AM EDT 01/13/2025 7:17 AM EDT Narrative [facility] - 01/13/2025 7:36 AM EDT Female (non-): 0-4.9 mIU/mL Female (postmenopausal): 0-8.1 mIU/mL Indeterminate values for (e.g., 5-25 mIU/mL) may be confirmed with a repeat test in 48-72 hours. Values in should double every 2-3 days for the first six weeks. Ingestion of tom doses of biotin (>5 mg/day) taken within 8 hours of drawing blood sample can interfere with this immunoassay test. Olvin Yarbrough MD CHEMISTRY ORDERABLES Zayra valencia Result Performing Organization Address [facility] de Phone Number [facility] [address] [place] [address] * (ABNORMAL) TROPONIN-T HIGH SENSITIVITY BASELINE W/ REFLEX (01/13/2025 7:14 AM EDT) [id number]-[id number]-[id number] 24(H) <14 ng/L 01/13/2025 7:39 AM EDT [facility] Blood VENOUS BLOOD / Unknown Venipuncture / Unknown 01/13/2025 7:14 AM EDT 01/13/2025 7:17 AM EDT Narrative [facility] - 01/13/2025 7:39 AM EDT Ingestion of tom doses of biotin (>5 mg/day) taken within 8 hours of drawing blood sample can interfere with this immunoassay test. Olvin Yarbrough MD CHEMISTRY ORDERABLES Zayra valencia Result Performing Organization Address [facility] de Phone Number [facility] [address] [place] [address] * (ABNORMAL) NT PROBNP (01/13/2025 7:14 AM EDT) NT Pro-BNP 1,267(H) <=192 pg/mL 01/13/2025 7:37 AM EDT [facility] Blood VENOUS BLOOD / Unknown Venipuncture / Unknown 01/13/2025 7:14 AM EDT 01/13/2025 7:17 AM EDT Narrative [facility] - 01/13/2025 7:37 AM EDT An NT pro-BNP level less than 300 pg/mL in any patient, regardless of age, effectively rules out acute CHF with a 99% negative predictive value. Ingestion of tom doses of biotin (>5 mg/day) taken within 8 hours of drawing blood sample can interfere with this immunoassay test. us Olvin Yarbrough MD CHEMISTRY ORDERABLES Zayra valencia Result [facility] [address] [facility] [place] [address] * (ABNORMAL) BASIC METABOLIC PANEL (01/13/2025 7:14 AM EDT) Sodium 134(L) 136 - 145 mmol/L 01/13/2025 7:37 AM EDT [facility] Potassium 4.6 3.5 - 5.0 mmol/L 01/13/2025 7:37 AM EDT [facility] Chloride 99 98 - 107 mmol/L 01/13/2025 7:37 AM EDT [facility] Total CO2 22 22 - 29 mmol/L 01/13/2025 7:37 AM EDT [facility] Anion Gap 13 7 - 16 mmol/L 01/13/2025 7:37 AM EDT [facility] Calcium 7.8(L) 8.6 - 10.4 mg/dL 01/13/2025 7:37 AM EDT [facility] Glucose Lvl 235(H) 70 - 99 mg/dL 01/13/2025 7:37 AM EDT [facility] BUN 15 6 - 20 mg/dL 01/13/2025 7:37 AM EDT [facility] Creatinine 1.08 0.51 - 1.30 mg/dL 01/13/2025 7:37 AM EDT [facility] eGFR (CKD-EPIcr 2020) 65 >=60 mL/min/1.7 3 m2 01/13/2025 7:37 AM EDT [facility] Comment:Estimated GFR was ca lculated using the CKD-EPIcr (2020) equation refit without race. The equation is recommended by the [employer] Kid[employer] - [place] [employer] Neph[employer] Task Force. Blood VENOUS BLOOD / Unknown Venipuncture / Unknown 01/13/2025 7:14 AM EDT 01/13/2025 7:17 AM EDT us Olvin Yarbrough MD CHEMISTRY ORDERABLES Zayra valencia Result [facility] [address] [place] [address] * (ABNORMAL) CBC WITH DIFF (01/13/2025 7:14 AM EDT) WBC 24.9(H) 3.7 - 10.3 x10(3)/mc L 01/13/2025 7:52 AM EDT [facility] RBC 4.67 3.90 - 5.20 x10(6)/mc L 01/13/2025 7:52 AM EDT [facility] Hgb 10.0(L) 11.2 - 15.7 g/dL 01/13/2025 7:52 AM EDT [facility] Hct 33.5(L) 34.0 - 45.0 % 01/13/2025 7:52 AM EDT [facility] MCV 71.7(L) 80.0 - 100.0 fL 01/13/2025 7:52 AM EDT [facility] MCH 21.4(L) 26.0 - 34.0 pg 01/13/2025 7:52 AM EDT [facility] MCHC 29.9(L) 30.7 - 35.5 g/dL 01/13/2025 7:52 AM EDT [facility] RDW 16.9(H) <=14.9 % 01/13/2025 7:52 AM EDT [facility] Platelet 345 155 - 369 x10(3)/mc L 01/13/2025 7:52 AM EDT [facility] MPV 10.8 8.8 - 12.5 fL 01/13/2025 7:52 AM EDT [facility] NRBC Auto % 0.1(H) <=0.0 % 01/13/2025 7:52 AM EDT [facility] NRBC# 0.0 x10(3)/mc L 01/13/2025 7:52 AM EDT [facility] Neut Percent 95.0 % 01/13/2025 7:52 AM EDT [facility] Comment:Neutrophils equals s egs plus bands Imm Gran% 1.0 % 01/13/2025 7:52 AM EDT [facility] Comment:Automated count of m etamyelocytes, myelocytes and promyelocytes. Lymph Percent 1.6 % 01/13/2025 7:52 AM EDT [facility] [place] Percent 1.9 % 01/13/2025 7:52 AM EDT [facility] Eos Percent 0.2 % 01/13/2025 7:52 AM EDT [facility] Baso Percent 0.3 % 01/13/2025 7:52 AM EDT [facility] Neut # 23.7(H) 1.6 - 6.1 x10(3)/mc L 01/13/2025 7:52 AM EDT [facility] Comment:Neutrophils equals s egs plus bands IMMGRAN# 0.2(H) 0.0 - 0.1 x10(3)/mc L 01/13/2025 7:52 AM EDT [facility] Comment:Automated count of m etamyelocytes, myelocytes and promyelocytes. An absolute IG <0.1 is reported as 0.0. Lymph # 0.4(L) 1.2 - 3.9 x10(3)/mc L 01/13/2025 7:52 AM EDT [facility] [place] # 0.5 0.3 - 0.9 x10(3)/mc L 01/13/2025 7:52 AM EDT [facility] Eos# 0.1 0.0 - 0.5 x10(3)/mc L 01/13/2025 7:52 AM EDT [facility] Baso # 0.1 0.0 - 0.1 x10(3)/mc L 01/13/2025 7:52 AM EDT [facility] [place] Slight 01/13/2025 7:52 AM EDT [facility] Polychrom Slight 01/13/2025 7:52 AM EDT [facility] Ovalocyte Occasional 01/13/2025 7:52 AM EDT [facility] Target Cell Occasional 01/13/2025 7:52 AM EDT [facility] Blood VENOUS BLOOD / Unknown Venipuncture / Unknown 01/13/2025 7:14 AM EDT 01/13/2025 7:17 AM EDT us Olvin Yarbrough MD HEMATOLOGY ORDERABLES Fin al Result [facility] [address] [place] [address] * EK EKG 12 LEAD (01/13/2025 7:06 AM EDT) Anatomical Region Laterality Modality Electrocardiogra phy 01/13/2025 7:14 AM EDT Impressions 01/13/2025 4:33 PM EDT [facility] Test Date: 2025-01-13 Pat Name: EVANGELIST NETTLES Department: DEPID Room: [facility] Gender: Female Third Helper: Amelia : 1980 Requested By: OLVIN Valencia Order Number: [id number] Reading MD: Mustapha Piper Measurements Intervals [place] Rate: 93 P: 62 PA: 160 QRS: 86 QRSD: 95 T: 29 QT: 357 QTc: 445 Interpretive Statements SINUS RHYTHM LOW QRS VOLTAGE IN PRECORDIAL LEADS Electronically Signed On 01-13-2025 16:32:53 EDT by Mustapha Piper Narrative Procedure Note Mustapha Piper MD - 01/13/2025 IMPRESSION [facility] Test Date: 2025-01-13 Pat Name: EVANGELIST NETTLES Department: DEPID Room: [id number] Gender: Female Third Helper: Amelia : 1980 Requested By: OLVIN Valencia Order Number: [id number] Reading MD: Mustapha Piper Measurements Intervals [place] Rate: 93 P: 62 PA: 160 QRS: 86 QRSD: 95 T: 29 QT: 357 QTc: 445 Interpretive Statements SINUS RHYTHM LOW QRS VOLTAGE IN PRECORDIAL LEADS Electronically Signed On 01-13-2025 16:32:53 EDT by Mustapha Piper us Olvin Yarbrough MD IMG ECG ORDERABLES Final Result documented in this encounter Visit Diagnoses Diagnosis Pneumonia of right lower lobe due to infectious organism- Primary Pneumonia of right lower lobe due to infectious organism Abdominal wall cellulitis Cellulitis and abscess of trunk Shortness of breath Elevated troponin Other abnormal blood chemistry Factor V Leiden Primary hypercoagulable state Type 2 diabetes mellitus, without long-term current use of insulin ([facility]) Class 3 severe obesity with body mass index (BMI) greater than or equal to 70 in adult Mood disorder Unspecified episodic mood disorder Hypertension Unspecified essential hypertension Cellulitis of abdominal wall. Improving. Patient picks her skin constantly. Cellulitis and abscess of trunk Chronic back pain Backache, unspecified Hypothyroidism Unspecified hypothyroidism Anemia of chronic disease Anemia of other chronic disease GRAZYNA (acute kidney injury). Likely due to vancomycin toxicity. Creatinine is improving Acute kidney failure, unspecified documented in this encounter Admitting Diagnoses Diagnosis Pneumonia of right lower lobe due to infectious organism documented in this encounter Administered Medications Inactive Administered Medications - up to 1 most recent administrations Medication Order MAR Action Action Date Dose Rate Site 0.9 % NaCl infusion Intravenous, at 100 mL/hr, CONTINUOUS, Starting on Fri01/18/25 at 1400, Until Fri01/20/25 at 0902 Rate/Dose Verify 01/19/2025 11:59 PM EDT 100 mL/hr amLODIPine (NORVASC) tablet 5 mg 5 mg, Oral, DAILY, First dose on Fri01/13/25 at 1745, Until Discontinued Given 01/20/2025 8:51 AM EDT 5 mg amoxicillin-clavulanat e (AUGMENTIN) 875-125 mg per tablet 1 Tablet 1 Tablet, Oral, EVERY 12 HOURS SCHEDULED (2 times per day), 7 doses, First dose on Fri01/17/25 at 2100, Last dose on Fri01/20/25 at 2100, Reason for Therapy: Infection Documented, Indication: Skin/soft tissue Given 01/20/2025 8:51 AM EDT 1 Tablet atorvastatin (LIPITOR) tablet 40 mg 40 mg, Oral, NIGHTLY, First dose on Fri01/13/25 at 2100, Until Discontinued Given 01/19/2025 8:25 PM EDT 40 mg ceFEPIme (MAXIPIME) 1 g/50 mL IVPB 1 g, Intravenous, EVERY 8 HOURS SCHEDULED (3 times per day), 21 doses, First dose on Fri01/13/25 at 1800, Last dose on Fri01/20/25 at 1400, Administer over 4 Hours, Reason(s) for using ceFEPime in this patient (if none met, consider using cefTRIAXone, instead): Risk factors for pseudomonal infection (IV antibiotic use within previous 90 days, recent pseudomonal infection, diabetic foot infection), Reason for Therapy: Infection Documented, Indication: Pneumonia IV Started 01/14/2025 5:02 AM EDT 1 g 12.5 mL/hr ceFEPIme (MAXIPIME) 2 g in sterile water 19 mL IVP 2 g, Intravenous, *EVERY 8 HOURS, 1 dose, First dose on Fri01/13/25 at 0915, If infusing multiple antibiotics and unable to infuse concurrently, infuse before vancomycin. Draw up 19 mL of Sterile Water for Injection into syringe and inject into ceFEPIme 2 g vial. Shake vial until powder is completely dissolved. Draw up entire content of vial (about 20 mL) into syringe. Administer intravenous push (IVP) over a period of 3 to 5 minutes., Reason for Therapy: Infection Documented, Indication: Sepsis Given 01/13/2025 10:08 AM EDT 2 g ceFEPIme (MAXIPIME) 2 g/100 mL IVPB 2 g, Intravenous, EVERY 8 HOURS SCHEDULED (3 times per day), 19 doses, First dose (after last modification) on Fri01/14/25 at 1400, Last dose on Fri01/20/25 at 1400, Administer over 4 Hours, Reason(s) for using ceFEPime in this patient (if none met, consider using cefTRIAXone, instead): Risk factors for pseudomonal infection (IV antibiotic use within previous 90 days, recent pseudomonal infection, diabetic foot infection), Reason for Therapy: Infection Documented, Indication: Pneumonia Rate/Dose Verify 01/17/2025 8:47 AM EDT 25 mL/hr dextrose 50 % solution 25 mL 25 mL, Intravenous, PRN, Starting on Fri01/13/25 at 1726, Until Fri01/20/25 at 2000, Low blood sugar, If FSBS less than 70 mg/dl and patient cannot take orally, Check FSBS every 15 minutes and repeat 25 mL of D50 IV push and notify physician if FSBS less than 70 mg/dL VESICANT , Insulin Calculator doxycycline hyclate (VIBRA-TABS) tablet 100 mg 100 mg, Oral, EVERY 12 HOURS SCHEDULED (2 times per day), 15 doses, First dose on Fri01/13/25 at 2100, Last dose on Fri01/20/25 at 2100, Reason for Therapy: Infection Documented, Indication: Pneumonia Given 01/20/2025 8:51 AM EDT 100 mg enoxaparin (LOVENOX) injection 40 mg 40 mg, Subcutaneous, 2 TIMES DAILY, First dose on Fri01/13/25 at 2100, Until Discontinued Given 01/17/2025 9:27 PM EDT 40 mg Abdominal Tissue ferric gluconate (FERRLECIT) 125 mg in sodium chloride 0.9 % 110 mL ivpb 125 mg, Intravenous, ONCE, 1 dose, On Fri01/14/25 at 1600, Administer over 60 Minutes IV Started 01/14/2025 7:40 PM EDT 125 mg 110 mL/hr ferric gluconate (FERRLECIT) 125 mg in sodium chloride 0.9 % 110 mL ivpb 125 mg, Intravenous, ONCE, 1 dose, On Fri01/16/25 at 1300, Administer over 60 Minutes IV Started 01/16/2025 2:33 PM EDT 125 mg 110 mL/hr FLUoxetine (PROzac) capsule 60 mg 60 mg, Oral, NIGHTLY, First dose on Fri01/13/25 at 2100, Until Discontinued Given 01/19/2025 8:25 PM EDT 60 mg glipiZIDE (GLUCOTROL) tablet 5 mg 5 mg, Oral, DAILY WITH MEAL, First dose on Fri01/14/25 at 0800, Until Discontinued, Hold if NPO. Given 01/20/2025 8:51 AM EDT 5 mg glucagon (GLUCAGEN) injection 1 mg 1 mg, Intramuscular, PRN, Starting on [place] 01/13/25 at 1726, Until [place] 01/20/25 at 2000, Low blood sugar, If FSBS less than 70 mg/dl, patient cannot take orally and without IV access, If patient is without IV access, give Glucagon 1 mg Intramuscularly, insert IV and call physician., Insulin Calculator insulin aspart U-100 (NovoLOG) injection 0-40 Units 0-40 Units, Subcutaneous, 4 TIMES DAILY WITH MEALS, First dose on [place] 01/13/25 at 2100, Until Discontinued, PO Diet: Obtain FSBS before patient begins eating. Administer this dose, which only provides correctional insulin, immediately after FSBS. Tube Feeds and TPN: Obtain FSBS and administer this dose, which only provides correctional insulin, immediately after FSBS. Notify physician if FSBS less than 50 or greater than 350. Correction insulin doses must be by at least 3 hours. Insulin Calculator SEBD TEACHER - ICUs and RECRUITING COORDINATOR Only Waste Sort Code = BLACK [employer] Hazardous Waste Container, Blood Glucose Target - Daytime (mg/dL): 140, Blood Glucose Target - Nighttime (mg/dL): 180, Hyperglycemia Correction Factor: 17.5, Insulin Calculator Given 01/20/2025 2:15 PM EDT 4 Units Right Arm Insulin Calculator (SEBD TEACHER) - FSBS (Correction Only) Input MISCELLANEOUS, 4 TIMES DAILY WITH MEALS, First dose on Fri01/13/25 at 2100, Until Discontinued, Blood Glucose Target - Daytime (mg/dL): 140, Blood Glucose Target - Nighttime (mg/dL): 180, Hyperglycemia Correction Factor: 17.5, Insulin Calculator iopamidoL (ISOVUE-370) 370 mg iodine /mL (76 %) injection (LOW) 100 mL 100 mL, Intravenous, ONCE PRN, 1 dose, Starting on [place] 01/13/25 at 0815, Until Fri01/13/25 at 0815, Radiography/Imaging, Radiology Procedure, VESICANT , CT (Contrasts) Given 01/13/2025 8:15 AM EDT 100 mL ketorolac (TORADOL) injection 15 mg 15 mg, Intravenous, ONCE, 1 dose, On 01/15/25 at 1300, For IV Administration: Give undiluted over at least 15 seconds. Maximum IV dose is 30mg. For IM Administration: Give undiluted, slowly and deeply into the muscle. Given 01/15/2025 12:59 PM EDT 15 mg LEVOthyroxine (SYNTHROID) tablet 75 mcg 75 mcg, Oral, DAILY EARLY AM, First dose on Fri01/14/25 at 0600, Until Discontinued, Take on empty stomach, at least 30 minutes to 1 hour before breakfast. Take at least 4 hours prior before or after calcium- or iron-containing products or bile acid sequestrants. If given via NG or other tubes administer dose as long as possible after feeding and at least 1 hour before resuming feeding. Given 01/20/2025 6:04 AM EDT 75 mcg metFORMIN (GLUCOPHAGE) tablet 500 mg 500 mg, Oral, 2 TIMES DAILY WITH MEALS, First dose on Fri01/16/25 at 0800, Until Discontinued, For procedures using IV iodinated contrast: hold metformin at the time of or prior to the procedure, and for 48 hours after. Inform MD Take with food. Given 01/18/2025 9:15 AM EDT 500 mg miconazole (MICATIN) 2 % powder Topical, 2 TIMES DAILY, 84 doses, First dose on Fri01/13/25 at 2100, Last dose on Fri02/24/25 at 0900, Application site: Behind knee folds, abd folds, under breasts Given 01/20/2025 8:56 AM EDT mirabegron (MYRBETRIQ) ER tablet 50 mg 50 mg, Oral, DAILY, First dose on Fri01/13/25 at 1745, Until Discontinued Given 01/20/2025 8:51 AM EDT 50 mg morphine injection 2 mg 2 mg, Intravenous, ONCE, 1 dose, On Fri01/13/25 at 0730 Given 01/13/2025 7:37 AM EDT 2 mg ondansetron (ZOFRAN) injection 4 mg 4 mg, Intravenous, EVERY 4 HOURS PRN, Starting on Fri01/13/25 at 1602, Until Fri01/20/25 at 2000, Nausea Given 01/16/2025 6:35 PM EDT 4 mg ondansetron (ZOFRAN) tablet 4 mg 4 mg, Oral, EVERY 4 HOURS PRN, Starting on Fri01/13/25 at 1602, Until Fri01/20/25 at 2000, Nausea Given 01/20/2025 8:51 AM EDT 4 mg oxyCODONE (OxyCONTIN) CR tablet 30 mg 30 mg, Oral, 2 TIMES DAILY, First dose (after last modification) on [facility] 01/13/25 at 1900, Until Discontinued Given 01/15/2025 9:19 PM EDT 30 mg oxyCODONE (OxyCONTIN) CR tablet 30 mg 30 mg, Oral, EVERY 12 HOURS SCHEDULED (2 times per day), First dose on [place] 01/16/25 at 0900, Until Discontinued, Do not crush or chew Given 01/20/2025 8:51 AM EDT 30 mg propranoloL (INDERAL) tablet 20 mg 20 mg, Oral, *EVERY 12 HOURS, First dose on [facility] 01/13/25 at 2100, Until Discontinued Given 01/20/2025 8:51 AM EDT 20 mg QUEtiapine (SEROquel) tablet 100 mg 100 mg, Oral, 2 TIMES DAILY, First dose on [facility] 01/13/25 at 2100, Until Discontinued Given 01/20/2025 8:51 AM EDT 100 mg rOPINIRole (REQUIP) tablet 2 mg 2 mg, Oral, 3 TIMES DAILY, First dose on [facility] 01/13/25 at 2100, Until Discontinued Given 01/20/2025 2:14 PM EDT 2 mg sodium chloride 0.9% IV line flush 50 mL 50 mL, Intravenous, at 999 mL/hr, PRN, Starting on [facility] 01/13/25 at 0705, Until 01/15/25 at 0704, Line Care, Flush with 50 mL after IVPB to insure complete administration of the dose. May use the saline infusion to back flush IVPB tubing as needed., Use this order to document priming and flushing IV line after medication administration. Rate/Dose Verify 01/15/2025 9:08 AM EDT 10 mL/hr sodium chloride 0.9% syringe Intravenous, ONCE PRN, 1 dose, Starting on [facility] 01/13/25 at 0815, Until [facility] 01/13/25 at 0815, Line Care, Flush peripheral lines every 12 hours, central lines every 8 hours, and after IV medication, CT (Contrasts) Given 01/13/2025 8:15 AM EDT sterile water injection 1 mL 1 mL, Injection, PRN, Starting on Fri01/13/25 at 1726, Until Fri01/20/25 at 2000, Use for drug dilution, Use to dilute and administer glucagon injection, Insulin Calculator tiZANidine (ZANAFLEX) tablet 8 mg 8 mg, Oral, NIGHTLY, First dose on Fri01/13/25 at 2100, Until Discontinued Given 01/19/2025 8:24 PM EDT 8 mg torsemide (DEMADEX) tablet 20 mg 20 mg, Oral, DAILY, First dose on Fri01/13/25 at 1745, Until Discontinued Given 01/20/2025 8:51 AM EDT 20 mg traMADoL (ULTRAM) tablet 50-100 mg 50-100 mg, Oral, 4 TIMES DAILY, First dose on Fri01/13/25 at 1700, Until Discontinued Given 01/20/2025 2:14 PM EDT 50 mg vancomycin (VANCOCIN) 2,000 mg in sodium chloride 0.9 % 550 mL IVPB 2,000 mg, Intravenous, ONCE, 1 dose, On Fri01/13/25 at 0930, Administer over 120 Minutes, VESICANT , Reason for Therapy: Infection Documented, Indication: Sepsis, Pneumonia IV Started 01/13/2025 10:17 AM EDT 2,000 mg 275 mL/hr vancomycin (VANCOCIN) 2,000 mg in sodium chloride 0.9 % 550 mL IVPB 2,000 mg, Intravenous, *EVERY 12 HOURS, 7 doses, First dose on Fri01/13/25 at 1800, Last dose on Fri01/16/25 at 2200, Administer over 120 Minutes, VESICANT , Reason for Therapy: Infection Documented, Indication: Sepsis, Pneumonia Rate/Dose Change 01/14/2025 2:05 PM EDT 150 mL/hr vancomycin (VANCOCIN) 2,000 mg in sodium chloride 0.9 % 550 mL IVPB 2,000 mg, Intravenous, *EVERY 12 HOURS, 5 doses, First dose (after last modification) on 01/15/25 at 0200, Last dose on Fri01/17/25 at 0200, Administer over 120 Minutes, VESICANT , Reason for Therapy: Infection Documented, Indication: Sepsis, Pneumonia IV Started 01/15/2025 3:05 PM EDT 2,000 mg 275 mL/hr vancomycin (VANCOCIN) 2,000 mg in sodium chloride 0.9 % 550 mL IVPB 2,000 mg, Intravenous, *EVERY 24 HOURS, 4 doses, First dose (after last modification) on Fri01/16/25 at 2100, Last dose on Fri01/19/25 at 2100, Administer over 180 Minutes, VESICANT , Reason for Therapy: Infection Documented, Indication: Sepsis, Pneumonia Rate/Dose Change 01/16/2025 9:52 PM EDT 164.7 mL/hr warfarin (COUMADIN) tablet 11.25 mg 11.25 mg, Oral, ONCE WARFARIN, 1 dose, On Fri01/14/25 at 1700, Please place residual drug and/or empty package in [employer]ardous Waste Container Given 01/14/2025 7:34 PM EDT 11.25 mg warfarin (COUMADIN) tablet 5 mg 5 mg, Oral, ONCE WARFARIN, 1 dose, On Fri01/18/25 at 1700, Please place residual drug and/or empty package in [employer] Waste Container Given 01/18/2025 5:32 PM EDT 5 mg warfarin (COUMADIN) tablet 7.5 mg 7.5 mg, Oral, ONCE WARFARIN, 1 dose, On Fri01/15/25 at 1800, Please place residual drug and/or empty package in [employer] Waste Container Given 01/15/2025 6:16 PM EDT 7.5 mg warfarin (COUMADIN) tablet 7.5 mg 7.5 mg, Oral, ONCE WARFARIN, 1 dose, On Fri01/16/25 at 1730, Please place residual drug and/or empty package in [employer] Waste Container Given 01/16/2025 6:27 PM EDT 7.5 mg warfarin (COUMADIN) tablet 7.5 mg 7.5 mg, Oral, ONCE WARFARIN, 1 dose, On Fri01/17/25 at 1700, Please place residual drug and/or empty package in [employer] Waste Container Given 01/17/2025 6:13 PM EDT 7.5 mg warfarin (COUMADIN) tablet 7.5 mg 7.5 mg, Oral, ONCE WARFARIN, 1 dose, On Fri01/19/25 at 1700, Please place residual drug and/or empty package in [employer] Container Given 01/19/2025 5:56 PM EDT 7.5 mg warfarin (COUMADIN) tablet 7.5 mg 7.5 mg, Oral, ONCE WARFARIN, 1 dose, On Fri01/20/25 at 1100, Please place residual drug and/or empty package in [employer] Waste Container Given 01/20/2025 2:13 PM EDT 7.5 mg WARFARIN - PHARMACY-MANAGED THERAPY MISCELLANEOUS, DAILY WARFARIN (Daily), First dose on Fri01/13/25 at 1700, Until Discontinued documented in this encounter Discontinued Medications Medication Sig Discontinue Reason Start Date End Da te metFORMIN (GLUCOPHAGE) 500 mg Oral Tablet Take 1 Tablet by mouth 2 times daily (with meals). 01/06/2025 01/20/2025 amLODIPine (NORVASC) 5 mg Oral Tablet Take 1 Tab by mouth daily. Stop Taking at Discharge 12/21/2019 01/20/2025 nystatin (MYCOSTATIN) Top Cream Apply topically 3 times daily. Stop Taking at Discharge 01/20/2025 documented as of this encounter Historical Medications * This list may reflect changes made after this encounter. albuterol (PROVENTIL HFA;VENTOLIN HFA) 90 mcg/actuation Inhl HFA Aerosol Inhaler Inhale 2 Puffs into the lungs as needed. 12/23/2024 torsemide (DEMADEX) 20 mg Oral Tablet Take 20 mg by mouth daily. 12/23/2024 02/18/2025 added in this encounter Active and Recently Administered Medications Times are shown in EDT. Scheduled Medication Order 01/18/2025 01/19/2025 01/20/2025 amLODIPine (NORVASC) tablet 5 mg 5 mg, Oral, DAILY, First dose on [place] 01/13/25 at 1745, Until Discontinued 0916 (Given - Provider: Sunni Hendrickson RN) 0918 (Given - Provider: Sunni Hendrickson RN) 0851 (Given - Provider: Christel Arambula RN) amoxicillin-clavulanat e (AUGMENTIN) 875-125 mg per tablet 1 Tablet 1 Tablet, Oral, EVERY 12 HOURS SCHEDULED (2 times per day), 7 doses, First dose on Fri01/17/25 at 2100, Last dose on Fri01/20/25 at 2100, Reason for Therapy: Infection Documented, Indication: Skin/soft tissue 0916 (Given - Provider: Sunni Hendrickson, RN)2145 (Given - Provider: Jil Laguna RN) 917 (Given - Provider: Sunni Hendrickson RN)2023 (Given - Provider: Mahsa Gary, RN) 0851 (Given - Provider: Christel Arambula, RN) atorvastatin (LIPITOR) tablet 40 mg 40 mg, Oral, NIGHTLY, First dose on Fri01/13/25 at 2100, Until Discontinued 2146 (Given - Provider: Jil Laguna RN) 2024 (Given - Provider: Mahsa Gary, RN) doxycycline hyclate (VIBRA-TABS) tablet 100 mg 100 mg, Oral, EVERY 12 HOURS SCHEDULED (2 times per day), 15 doses, First dose on Fri01/13/25 at 2100, Last dose on Fri01/20/25 at 2100, Reason for Therapy: Infection Documented, Indication: Pneumonia 915 (Given - Provider: Sunni Hendrickson RN)2145 (Given - Provider: Jil Laguna RN) 917 (Given - Provider: Sunni Hendrickson, YENNY)2024 (Given - Provider: Mahsa Gary, RN) 0851 (Given - Provider: Christel Arambula, RN) FLUoxetine (PROzac) capsule 60 mg 60 mg, Oral, NIGHTLY, First dose on Fri01/13/25 at 2100, Until Discontinued 2145 (Given - Provider: Jil Laguna RN) 2024 (Given - Provider: Mahsa Gary, RN) glipiZIDE (GLUCOTROL) tablet 5 mg 5 mg, Oral, DAILY WITH MEAL, First dose on Fri01/14/25 at 0800, Until Discontinued, Hold if NPO. 914 (Given - Provider: Sunni Hendrickson RN) 917 (Given - Provider: Sunni Hendrickson RN) 0851 (Given - Provider: Christel Arambula, YENNY) insulin aspart U-100 (NovoLOG) injection 0-40 Units(Linked Group 1) 0-40 Units, Subcutaneous, 4 TIMES DAILY WITH MEALS, First dose on Fri01/13/25 at 2100, Until Discontinued, PO Diet: Obtain FSBS before patient begins eating. Administer this dose, which only provides correctional insulin, immediately after FSBS. Tube Feeds and TPN: Obtain FSBS and administer this dose, which only provides correctional insulin, immediately after FSBS. Notify physician if FSBS less than 50 or greater than 350. Correction insulin doses must be by at least 3 hours. Insulin Calculator SEBD TEACHER - ICUs and RECRUITING COORDINATOR Only Waste Sort Code = BLACK [employer] Hazardous Waste Container, Blood Glucose Target - Daytime (mg/dL): 140, Blood Glucose Target - Nighttime (mg/dL): 180, Hyperglycemia Correction Factor: 17.5, Insulin Calculator 0922 (Not Given - Provider: Sunni Hendrickson RN - Reason: Order parameters not met)1304 (Given - Provider: Sunni Hendrickson, RN)1816 (Given - Provider: Sunni Hendrickson RN)2147 (Given - Provider: Jil Laguna, RN) 0918 (Given - Provider: Sunni Hendrickson RN)1350 (Given - Provider: Sunni Hendrickson, RN)1725 (Given - Provider: Sunni Hendrickson RN)2100 (Not Given - Provider: Mahsa Gary RN - Reason: Order parameters not met - Comment: fsbs 187) 0852 (Given - Provider: Christel Arambula, RN)1415 (Given - Provider: Christel Arambula, RN) Insulin Calculator (SEBD TEACHER) - FSBS (Correction Only) Input(Linked Group 1) MISCELLANEOUS, 4 TIMES DAILY WITH MEALS, First dose on [place] 01/13/25 at 2100, Until Discontinued, Blood Glucose Target - Daytime (mg/dL): 140, Blood Glucose Target - Nighttime (mg/dL): 180, Hyperglycemia Correction Factor: 17.5, Insulin Calculator 0922 (Non- Med Documentation - Provider: Sunni Hendrickson RN)1257 (Non- Med Documentation - Provider: Sunni Hendrickson RN)1800 (Non- Med Documentation - Provider: Sunni Hendrickson RN)2100 (Non- Med Documentation - Provider: Jil Laguna, RN) 0800 (Non- Med Documentation - Provider: Sunni Hendrickson RN)1200 (Non- Med Documentation - Provider: Sunni Hendrickson RN)1720 (Non- Med Documentation - Provider: Sunni Hendrickson RN)2100 (Non- Med Documentation - Provider: Mahsa Gary RN) 0800 (Non- Med Documentation - Provider: Christel Arambula, YENNY)1200 (Non- Med Documentation - Provider: Christel Arambula, YENNY) LEVOthyroxine (SYNTHROID) tablet 75 mcg 75 mcg, Oral, DAILY EARLY AM, First dose on Fri01/14/25 at 0600, Until Discontinued, Take on empty stomach, at least 30 minutes to 1 hour before breakfast. Take at least 4 hours prior before or after calcium- or iron-containing products or bile acid sequestrants. If given via NG or other tubes administer dose as long as possible after feeding and at least 1 hour before resuming feeding. 0616 (Given - Provider: Jil Laguna RN) 0614 (Given - Provider: Jil Laguna RN) 0604 (Given - Provider: Mahsa Gary, RN) metFORMIN (GLUCOPHAGE) tablet 500 mg (CANCELED) 500 mg, Oral, 2 TIMES DAILY WITH MEALS, First dose on Fri01/16/25 at 0800, Until Discontinued, For procedures using IV iodinated contrast: hold metformin at the time of or prior to the procedure, and for 48 hours after. Inform MD Take with food. 0915 (Given - Provider: Sunni Hendrickson RN) miconazole (MICATIN) 2 % powder Topical, 2 TIMES DAILY, 84 doses, First dose on Fri01/13/25 at 2100, Last dose on Fri02/24/25 at 0900, Application site: Behind knee folds, abd folds, under breasts 0911 (Given - Provider: Sunni Hendrickson RN)7 (Given - Provider: Jil Laguna RN) 923 (Given - Provider: Sunni Hendrickson RN)2024 (Given - Provider: Mahsa Gary, RN) 0856 (Given - Provider: Christel Arambula, RN) mirabegron (MYRBETRIQ) ER tablet 50 mg 50 mg, Oral, DAILY, First dose on Fri01/13/25 at 1745, Until Discontinued 15 (Given - Provider: Sunni Hendrickson RN) 0918 (Given - Provider: Sunni Hendrickson RN) 0851 (Given - Provider: Christel Arambula, RN) oxyCODONE (OxyCONTIN) CR tablet 30 mg 30 mg, Oral, EVERY 12 HOURS SCHEDULED (2 times per day), First dose on Fri01/16/25 at 0900, Until Discontinued, Do not crush or chew 0916 (Given - Provider: Sunni Hendrickson, YENNY)2146 (Given - Provider: Jil Laguna RN) 917 (Given - Provider: Sunni Hendrickson RN)2024 (Given - Provider: Mahsa Gary RN) 0851 (Given - Provider: Christel Arambula, RN) propranoloL (INDERAL) tablet 20 mg 20 mg, Oral, *EVERY 12 HOURS, First dose on Elisa 01/13/25 at 2100, Until Discontinued 0916 (Given - Provider: Sunni Hendrickson RN)2145 (Given - Provider: Jil Laguna RN) 09 (Given - Provider: Sunni Hendrickson RN)2024 (Given - Provider: Mahsa Gary RN) 0851 (Given - Provider: Christel Arambula, RN) QUEtiapine (SEROquel) tablet 100 mg 100 mg, Oral, 2 TIMES DAILY, First dose on Elisa 01/13/25 at 2100, Until Discontinued 15 (Given - Provider: Sunni Hendrickson RN)2145 (Given - Provider: Jil Laguna RN) 09 (Given - Provider: Sunni Hendrickson, YENNY)2024 (Given - Provider: Mahsa Gary, RN) 0851 (Given - Provider: Christel Arambula, RN) rOPINIRole (REQUIP) tablet 2 mg 2 mg, Oral, 3 TIMES DAILY, First dose on Elisa 01/13/25 at 2100, Until Discontinued 15 (Given - Provider: Sunni Hendrickson RN)1255 (Given - Provider: Sunni Hendrickson RN)2146 (Given - Provider: Jil Laguna RN) 09 (Given - Provider: Sunni Hendrickson RN)1343 (Given - Provider: Sunni Hendrickson, YENNY)2024 (Given - Provider: Mahsa Gary, YENNY) 0851 (Given - Provider: Christel Arambula, YENNY)141 (Given - Provider: Christel Arambula, YENNY) tiZANidine (ZANAFLEX) tablet 8 mg 8 mg, Oral, NIGHTLY, First dose on Elisa 01/13/25 at 2100, Until Discontinued 2146 (Given - Provider: Jil Laguna RN) 2023 (Given - Provider: Mahas Gary RN) torsemide (DEMADEX) tablet 20 mg 20 mg, Oral, DAILY, First dose on Fri01/13/25 at 1745, Until Discontinued 0916 (Given - Provider: Sunni Hendrickson RN) 0918 (Given - Provider: Sunni Hendrickson RN) 0851 (Given - Provider: Christel Arambula, YENNY) traMADoL (ULTRAM) tablet 50-100 mg 50-100 mg, Oral, 4 TIMES DAILY, First dose on Fri01/13/25 at 1700, Until Discontinued 0916 (Given - Provider: Sunni Hendrickson RN)1255 (Given - Provider: Sunni Hendrickson RN)1732 (Given - Provider: Sunni Hendrickson RN)2146 (Given - Provider: Jil Laguna RN) 0918 (Given - Provider: Sunni Hendrickson RN)1343 (Given - Provider: Sunni Hendrickson, YENNY)1726 (Given - Provider: Sunni Hendrickson RN)2024 (Given - Provider: Mahsa Gary RN) 0851 (Given - Provider: Christel Arambula, YENNY)1414 (Given - Provider: Christel Arambula RN) warfarin (COUMADIN) tablet 5 mg (COMPLETED) 5 mg, Oral, ONCE WARFARIN, 1 dose, On Fri01/18/25 at 1700, Please place residual drug and/or empty package in [facility] [employer] 1732 (Given - Provider: Sunni Hendrickson RN) warfarin (COUMADIN) tablet 7.5 mg (COMPLETED) 7.5 mg, Oral, ONCE WARFARIN, 1 dose, On Fri01/19/25 at 1700, Please place residual drug and/or empty package in [facility] [employer] 1756 (Given - Provider: Sunni Hendrickson, YENNY) warfarin (COUMADIN) tablet 7.5 mg (COMPLETED) 7.5 mg, Oral, ONCE WARFARIN, 1 dose, On Fri01/20/25 at 1100, Please place residual drug and/or empty package in [facility] [employer] 1413 (Given - Provider: Christel Arambula, YENNY) WARFARIN - PHARMACY-MANAGED THERAPY MISCELLANEOUS, DAILY WARFARIN (Daily), First dose on Fri01/13/25 at 1700, Until Discontinued 1700 (Not Given - Provider: Sunni Hendrickson RN - Reason: Other - Comment: rx to dose) 1700 (Not Given - Provider: Sunni Hendrickson RN - Reason: Other - Comment: rx to dose) Continuous Medication Order 01/18/2025 01/19/2025 01/20/2025 0.9 % NaCl infusion (CANCELED) Intravenous, at 100 mL/hr, CONTINUOUS, Starting on Fri01/18/25 at 1400, Until Fri01/20/25 at 0902 1301 (New Bag - Provider: Sunni Hendrickson RN)1911 (Rate/Dose Verify - Provider: Jil Laguna, RN)2322 (New Bag - Provider: Jil Laguna RN) 0925 (New Bag - Provider: Sunni Hendrickson RN)1340 (Rate/Dose Verify - Provider: Sunni Hendrickson RN)1919 (Rate/Dose Verify - Provider: Sunni Hendrickson RN)192 (Rate/Dose Verify - Provider: Mahsa Gary RN)1955 (Rate/Dose Verify - Provider: Mahsa Gary RN)1956 (IV Paused - Provider: Mahsa Gary RN)2002 (IV Restarted - Provider: Mahsa Gary RN)2003 (IV Paused - Provider: Mahsa Gary RN)2012 (IV Restarted - Provider: Mahsa Gary RN)2016 (Stopped - Provider: Mahsa Gary RN)2016 (Stopped - Provider: Mahsa Gary RN)2021 (Stopped - Provider: Mahsa Gary, RN - Comment: loss of IV access)213 (New Bag - Provider: Mahsa Gary RN)224 (IV Paused - Provider: Mahsa Gary RN)225 (IV Restarted - Provider: Mahsa Gary, RN)2359 (Rate/Dose Verify - Provider: Mahsa Gary, RN) 0359 (Stopped - Provider: Mahsa Gary RN) PRN Medication Order 01/18/2025 01/19/2025 01/20/2025 dextrose 50 % solution 25 mL 25 mL, Intravenous, PRN, Starting on Fri01/13/25 at 1726, Until Fri01/20/25 at 2000, Low blood sugar, If FSBS less than 70 mg/dl and patient cannot take orally, Check FSBS every 15 minutes and repeat 25 mL of D50 IV push and notify physician if FSBS less than 70 mg/dL VESICANT , Insulin Calculator glucagon (GLUCAGEN) injection 1 mg(Linked Group 2) 1 mg, Intramuscular, PRN, Starting on Elisa 01/13/25 at 1726, Until Elisa 01/20/25 at 2000, Low blood sugar, If FSBS less than 70 mg/dl, patient cannot take orally and without IV access, If patient is without IV access, give Glucagon 1 mg Intramuscularly, insert IV and call physician., Insulin Calculator ondansetron (ZOFRAN) injection 4 mg(Linked Group 3) 4 mg, Intravenous, EVERY 4 HOURS PRN, Starting on Elisa 01/13/25 at 1602, Until Elisa 01/20/25 at 2000, Nausea 1119 (See Alternative - Provider: Sunni Hendrickson RN)1732 (See Alternative - Provider: Sunni Hendrickson, YENNY)2146 (See Alternative - Provider: Jil Laguna RN) 0918 (See Alternative - Provider: Sunni Hendrickson, YENNY)1726 (See Alternative - Provider: Sunni Hendrickson, YENNY) 0851 (See Alternative - Provider: Christel Arambula, RN) ondansetron (ZOFRAN) tablet 4 mg(Linked Group 3) 4 mg, Oral, EVERY 4 HOURS PRN, Starting on Elisa 01/13/25 at 1602, Until Elisa 01/20/25 at 2000, Nausea 1119 (Given - Provider: Sunni Hendrickson RN)1732 (Given - Provider: Sunni Hendrickson RN)2146 (Given - Provider: Jil Laguna, RN) 0918 (Given - Provider: Sunni Hendrickson, YENNY)1726 (Given - Provider: Sunni Hendrickson, YENNY) 0851 (Given - Provider: Christel Arambula, RN) sterile water injection 1 mL(Linked Group 2) 1 mL, Injection, PRN, Starting on Elisa 01/13/25 at 1726, Until Elisa 01/20/25 at 2000, Use for drug dilution, Use to dilute and administer glucagon injection, Insulin Calculator Linked Groups Order Group 1: Insulin Calculator (SEBD TEACHER) - FSBS (Correction Only) InputJump to med MISCELLANEOUS, 4 TIMES DAILY WITH MEALS, First dose on Elisa 01/13/25 at 2100, Until Discontinued, Blood Glucose Target - Daytime (mg/dL): 140, Blood Glucose Target - Nighttime (mg/dL): 180, Hyperglycemia Correction Factor: 17.5, Insulin Calculator And insulin aspart U-100 (NovoLOG) injection 0-40 UnitsJump to med 0-40 Units, Subcutaneous, 4 TIMES DAILY WITH MEALS, First dose on Fri01/13/25 at 2100, Until Discontinued, PO Diet: Obtain FSBS before patient begins eating. Administer this dose, which only provides correctional insulin, immediately after FSBS. Tube Feeds and TPN: Obtain FSBS and administer this dose, which only provides correctional insulin, immediately after FSBS. Notify physician if FSBS less than 50 or greater than 350. Correction insulin doses must be by at least 3 hours. Insulin Calculator SEBD TEACHER - ICUs and RECRUITING COORDINATOR Only Waste Sort Code = [employer] Waste Container, Blood Glucose Target - Daytime (mg/dL): 140, Blood Glucose Target - Nighttime (mg/dL): 180, Hyperglycemia Correction Factor: 17.5, Insulin Calculator Group 2: glucagon (GLUCAGEN) injection 1 mgJump to med 1 mg, Intramuscular, PRN, Starting on Fri01/13/25 at 1726, Until Elisa 01/20/25 at 1999, Low blood sugar, If FSBS less than 70 mg/dl, patient cannot take orally and without IV access, If patient is without IV access, give Glucagon 1 mg Intramuscularly, insert IV and call physician., Insulin Calculator And sterile water injection 1 mLJump to med 1 mL, Injection, PRN, Starting on Fri01/13/25 at 1726, Until Elisa 01/20/25 at 1999, Use for drug dilution, Use to dilute and administer glucagon injection, Insulin Calculator Group 3: ondansetron (ZOFRAN) tablet 4 mgJump to med 4 mg, Oral, EVERY 4 HOURS PRN, Starting on Fri01/13/25 at 1602, Until Elisa 01/20/25 at 2000, Nausea Or ondansetron (ZOFRAN) injection 4 mgJump to med 4 mg, Intravenous, EVERY 4 HOURS PRN, Starting on Fri01/13/25 at 1602, Until Elisa 01/20/25 at 2000, Nausea documented in this encounter Orders Medications Ordered That Archie ht Not Have Been Administered Count Last Ordered Date First Ordered Date ceFEPIme (MAXIPIME) 2 g/100 mL IVPB 1 01/13 dextrose 50 % solution 25 mL 1 01/13/2025 glucagon (GLUCAGEN) injection 1 mg 1 2024 Insulin Calculator (SEBD TEACHER) - FSBS (Correction Only) Input 1 01/13/2025 oxyCODONE (OxyCONTIN) CR tablet 30 mg 1 04/2025 sodium chloride 0.9% syringe 5-10 mL 1 01/04 sterile water injection 1 mL 1 01/13/2025 WARFARIN - PHARMACY-MANAGED THERAPY 1 01/13 Lab Orders Without Results Count Last Ordered D ate First Ordered Date BASIC METABOLIC PANEL 1 01/13/2025 Consult Count Last Ordered Date First Orde red Date IP CONSULT TO PHARMACY 1 01/13/2025 OT Count Last Ordered Date First Orde red Date IP CONSULT TO OCCUPATIONAL THERAPY 1 2024 PT Count Last Ordered Date First Orde red Date IP CONSULT TO PHYSICAL THERAPY 1 01/18/2025 Admission Count Last Ordered Date First Orde red Date ADMIT 1 01/13/2025 Transfer Count Last Ordered Date First Orde red Date TRANSFER PATIENT 1 01/19/2025 Discharge Count Last Ordered Date First Orde red Date DISCHARGE PATIENT 1 01/20/2025 documented in this encounter Additional Health Concerns Infection Onset Date Last Indicated Resolved Time R/O COVID-19 01/13/2025 01/13/2025 01/13/2025 8:51 AM EDT Assessment Noted Time PHQ-9 Depression Total Score: 2 01/15/20 3:17 PM EDT PHQ-2 Depression Total Score: 2 01/15/20 3:17 PM EDT documented as of this encounter Care Teams Brake Linings Coater Relationship Specialty Start Date End Date Miguel Angel Ohara MD [address] [place] [id number] PCP - General Family Medicine 04/13/24 Tali Carmona MD [address] [place] [address] Consulting Physician Internal Medicine-Nephrology 08/24/20 documented as of this encounter
--- OUTSIDE RECORDS SUMMARY | 2025-01-21 03:22 | XMS_ITS | Encounter Summary ---
Author Organization [place] [address] Care Team Providers Care Dining Manager Name Role Phone Tali Carmona MD Unavailable [phone] Miguel Angel Ohara MD Primary Care Provider [phone] Encounter Details Date Type Department Care Team (Late st Contact Info) Description 01/21/2025 3:22 AM EDT Hospital Encounter [facility] [address] [place] [address] Nicola Figueroa MD [address] [id number] Social History Tobacco Use Types Packs/Day Years Used Date Smoking Tobacco: Never Smokeless Tobacco: Never Alcohol Use Standard Drinks/Week Comments Never 0 (1 standard drink = 0.6 oz pur e alcohol) [facility] Utilities Answer Date Recorded In the past 12 months has [employer], gas, oil, or water [employer] threatened to shut off services in your home? No 02/14/2025 AUDIT-C Answer Date Recorded Q1: How often [...] housing, medical care, and heating? Somewhat hard 02/14/2025 PHQ-2 Answer Date Recorded PHQ-2 Total Score 2 02/14/2025 [facility] [place] [facility] - Occupational Stress Questionnaire Answer Date Recorded Do you feel stress - tense, restless, nervous, or anxious, or unable to sleep at night because your mind is troubled all the time - these days? To some extent 02/14/2025 Exercise Vital Sign Answer Date Recorde d On average, how many days pe r week do you engage in moderate to strenuous exercise (like a brisk walk)? 0 days 02/14/2025 On average, how many minutes do you engage in exercise at this level? 0 min 02/14/2025 Hunger Vital Sign Answer Date Recorded Within the past 12 months, y ou worried that your food would run out before you got the money to buy more. Sometimes true Within the past 12 months, t he food you bought just didn't last and you didn't have money to get more. Never true 05/2025 [facility] IP Transportation Answer D ate Recorded In the past 12 months, has l ack of reliable transportation kept you from medical appointments, meetings, work or from getting things needed for daily living? No 02/14/2025 Comments No Sex and Gender Information Value Date Recorded Sex Assigned at Not on file Legal Sex Female 6:56 AM EDT Gender Identity Not on file Sexual Orientation Not on file documented as of this encounter Functional Status * Alcohol Screening Score Answer Date of Assessment Author 0 02/12/2025 5:00 AM EDT Klever Mckinley RN * Drug Screening Score Answer Date of Assessment Author 0 02/12/2025 5:00 AM EDT Klever Mckinley RN * Question Answer Date of Assessment Author How often do you have a drin k containing alcohol? 0 02/12/2025 5:00 AM EDT Jessica Mckinley, YENNY How many drinks containing a lcohol do you have on a typical day when you are drinking? 0 02/12/2025 5:00 AM LATOSHAT Jessica Mckinley RN How often do you have six or more drinks on one occasion? 0 02/12/2025 5:00 AM LATOSHAT Braulio Mckinley RN AUDIT-C to Determine Rows 4-10 0 02/12/2025 5:00 AM EDT Jessica Mckinley RN * Is the person deaf or does he/she have serious difficulty hearing? Answer Date of Assessment Author No 01/06/2025 12:07 PM EDElysia Ledesma RN * Is the person blind or does he/she have serious difficulty seeing even when wearing glasses? Answer Date of Assessment Author No 01/06/2025 12:07 PM Elysia Nelsno RN * Does this person have serious difficulty walking or climbing stairs? Answer Date of Assessment Author Yes 01/06/2025 12:07 PM EDElysia Ledesma RN * Does this person have difficulty [...] interest or pleasure in doing things 1 02/14/2025 12:22 PM EDPeggy Elena R N Feeling down, depressed, or hopeless 1 02/04 12:22 PM Peggy Talamantes RN PHQ-2 Total Score 2 02/14/2025 12:22 PM Peggy Talamantes RN * PHQ-9 Total Score Answer Date of Assessment Author 2 02/14/2025 12:22 PM Peggy Talamantes RN * PHQ-2 Total Score Answer Date of Assessment Author 2 02/14/2025 12:22 PM Peggy Talamantes RN * Suicide Severity Rating Answer Date of Assessment Author No Risk 02/12/2025 1:15 AM EDLuzmaria Walton RN * [place] Suicide Severity Rating Scale (Q shift for moderate and high) Question Answer Date of Assessment Author 1. In the past month, have y ou wished you were or wished you could go to sleep and not wake up? 0 02/12/2025 1:15 AM EDT Koffi Atwood RN 2. In the past month, have y ou actually had any thoughts of killing yourself? (If no, skip to question 6) 0 02/12/2025 1:15 AM EDT Jasbir Atwood, RN 6. Have you ever done anythi ng, started to do anything, or prepared to do anything to end your life? 0 02/12/2025 1:15 AM EDT Jasbir Atwood, RN documented as of this encounter Mental Status * Because of a physical, mental or emotional condition, does this person have serious difficulty concentrating, remembering or making decisions? Answer Entry Date Author No 01/06/2025 12:07 PM EDT Elysia Stacy RN documented in this encounter Plan of Treatment Not on file documented as of this encounter Results * (ABNORMAL) PT / INR (01/21/2025 5:17 AM EDT) PT 33.1(H) 10.5 - 13.6 second(s) 01/21/2025 10:39 AM EDT [facility] INR 2.82(H) 0.91 - 1.18 (ratio) 01/21/2025 10:39 AM EDT [employer] Comment: Level of Therapy Indications Target INR Range Standard Dose Treatment and prophylaxis of venous 2.0 - 3.0 thrombosis, pulmonary embolism High Dose High risk patients with mechanical 2.5 - 3.5 heart valves Blood VENOUS BLOOD / Unknown Venipuncture / Unknown 01/21/2025 5:17 AM EDT 01/21/2025 9:48 AM EDT Nicola Figueroa MD HEMATOLOGY ORDERABLES F inal Result [facility] [address] [facility] , [address] [place] [address] documented in this encounter Visit Diagnoses Not on filedocumented in this encounter Additional Health Concerns Assessment Noted Time PHQ-9 Depression Total Score: 2 01/15/20 3:17 PM EDT PHQ-2 Depression Total Score: 2 01/15/20 3:17 PM EDT documented as of this encounter Care Teams Dining Manager Relationship Specialty Start Date End Date Miguel Angel Ohara MD [address] [facility] [address] [place] [address] PCP - General Family Medicine 04/13/24 Tali Carmona MD [address] [facility] [address] [place] [address] Consulting Physician Internal Medicine-Nephrology 08/24/20 documented as of this encounter
--- OUTSIDE RECORDS SUMMARY | 2025-01-21 05:00 | XMS_ITS | Encounter Summary ---
Author Organization [place] [address] Care Team Providers Care Servicer Travel Trailers Name Role Phone Tali Carmona MD Unavailable [phone] Miguel Angel Ohara MD Primary Care Provider [phone] Encounter Details Date Type Department Care Team (Latest Contact Info) Description 01/21/2025 5:00 AM EDT - 01/21/2025 11:59 PM EDT Hospital Encounter [facility] Referral Lab 1 [place], [place] [id number] Nicola Figueroa MD [address] [address] Discharge Disposition: Home or Self Care Social History Tobacco Use Types Packs/Day Years Used Date Smoking Tobacco: Never Smokeless Tobacco: Never Alcohol Use Standard Drinks/Week Comments Never 0 (1 standard drink = 0.6 oz pur e alcohol) [facility] Utilities Answer Date Recorded In the past 12 months has [employer], gas, oil, or water [employer] threatened to shut off services in your [...] Date Recorded PHQ-2 Total Score 2 01/14/2025 [facility] - Occupational Stress Questionnaire Answer Date Recorded [...] money to get more. Never true 05/2025 [facility] IP Transportation Answer D ate Recorded In [...] as of this encounter Functional Status * Is the person deaf or does he/she have serious difficulty hearing? Answer Date of Assessment Author No 01/06/2025 12:07 PM Elysia Nelson RN * Is the person blind or does he/she have serious difficulty seeing even when wearing glasses? Answer Date of Assessment Author No 01/06/2025 12:07 PM EDT Elysia Stacy RN * Does this person have serious difficulty walking or climbing stairs? Answer Date of Assessment Author Yes 01/06/2025 12:07 PM Elysia Nelson RN * Does this person have difficulty dressing or bathing? Answer Date of Assessment Author Yes 01/06/2025 12:07 PM Elysia Nelson RN * Because of a physical, mental or emotional condition, does this person have difficulty doing errands alone such as visiting a doctor's office or shopping? Answer Date of Assessment Author Yes 01/06/2025 12:07 PM Elysia Nelson RN documented as of this encounter Mental Status * Because of a physical, mental or emotional condition, does this person have serious difficulty concentrating, remembering or making decisions? Answer Entry Date Author No 01/06/2025 12:07 PM Elysia Nelson RN documented in this encounter Medications at Time [...] and 5 mg on all other days. oxyCODONE (OXYCONTIN) 15 mg Oral tablet,oral only,ext.rel.12 hr Take 30 mg by mouth every 12 hours. 02/18/2025 torsemide (DEMADEX) 20 mg Oral Tablet Take 20 mg by mouth daily. 12/23/2024 02/18/2025 documented as of this encounter Discharge Disposition Disposition Code Departure Means Destination Home or Self Care documented in this encounter Plan of Treatment Not on file documented as of this encounter Procedures Procedure Name Priority Date/Time Associated Diagnosis Comments PT / INR Today 01/21/2025 5:17 AM EDT CBC WITH DIFF Routine 01/21/2025 5:17 AM EDT BASIC METABOLIC PANEL Routine 01/21/2025 5:17 AM EDT documented in this encounter Results * (ABNORMAL) PT / INR (01/21/2025 5:17 AM EDT) PT 33.1(H) 10.5 - 13.6 second(s) 01/21/2025 10:39 AM EDT [facility] INR 2.82(H) 0.91 - 1.18 (ratio) 01/21/2025 10:39 AM EDT [facility] Comment: Level of Therapy Indications Target INR Range Standard Dose Treatment and prophylaxis of venous 2.0 - 3.0 thrombosis, pulmonary embolism High Dose High risk patients with mechanical 2.5 - 3.5 heart valves Blood VENOUS BLOOD / Unknown Venipuncture / Unknown 01/21/2025 5:17 AM EDT 01/21/2025 9:48 AM EDT us Nicola Figueroa MD HEMATOLOGY ORDERABLES F inal Result [facility] 1 [facility] , [place] [address] * (ABNORMAL) BASIC METABOLIC PANEL (01/21/2025 5:17 AM EDT) Sodium 139 136 - 145 mmol/L 01/21/2025 10:57 AM EDT [facility] Potassium 4.6 3.5 - 5.0 mmol/L 01/21/2025 10:57 AM EDT [facility] Chloride 104 98 - 107 mmol/L 01/21/2025 10:[address] [facility], [facility] Total CO2 23 22 - 29 mmol/L 01/21/2025 10:[address] [facility] Anion Gap 12 7 - 16 mmol/L 01/21/2025 10:[address] [facility], [facility] Calcium 7.7(L) 8.6 - 10.4 mg/dL 01/21/2025 10:[address] [facility], [facility] Glucose Lvl 160(H) 70 - 99 mg/dL 01/21/2025 10:[address] [facility], [facility] BUN 22(H) 6 - 20 mg/dL 01/21/2025 10:[address] [facility] Creatinine 1.62(H) 0.51 - 1.30 mg/dL 01/21/2025 10:[address] [facility] eGFR (CKD-EPIcr 2020) 40(L) >=60 mL/min/1.7 3 m2 01/21/2025 10:[address] [facility] Comment:Estimated GFR was ca lculated using the CKD-EPIcr (2020) equation refit without race. The equation is recommended by the National Kidney Foundation - [place] Society of Nephrology Task Force. Blood VENOUS BLOOD / Unknown Venipuncture / Unknown 01/21/2025 5:17 AM EDT 01/21/2025 9:48 AM EDT us Nicola Figueroa MD CHEMISTRY ORDERABLES Fi nal Result [facility] 1 [facility] , [address] [place] [id number] * (ABNORMAL) CBC WITH DIFF (01/21/2025 5:17 AM EDT) WBC 8.3 3.7 - 10.3 x10(3)/mc L 01/21/2025 11:09 AM EDT [facility] RBC 3.95 3.90 - 5.20 x10(6)/mc L 01/21/2025 11:09 AM EDT [facility] Hgb 8.2(L) 11.2 - 15.7 g/dL 01/21/2025 11:09 AM EDT [facility] Hct 28.9(L) 34.0 - 45.0 % 01/21/2025 11:09 AM EDT [facility] MCV 73.2(L) 80.0 - 100.0 fL 01/21/2025 11:09 AM EDT [facility] MCH 20.8(L) 26.0 - 34.0 pg 01/21/2025 11:09 AM EDT [facility] MCHC 28.4(L) 30.7 - 35.5 g/dL 01/21/2025 11:09 AM EDT [facility] RDW 18.7(H) <=14.9 % 01/21/2025 11:09 AM EDT [facility] Platelet 307 155 - 369 x10(3)/mc L 01/21/2025 11:09 AM EDT [facility] MPV 11.4 8.8 - 12.5 fL 01/21/2025 11:09 AM EDT [facility] Neut Percent 73.0 % 01/21/2025 11:09 AM EDT [facility] Comment:Neutrophils equals s egs plus bands Imm Gran% 1.1 % 01/21/2025 11:09 AM EDT [facility] Comment:Automated count of m etamyelocytes, myelocytes and promyelocytes. IG >1% represents a left shift and provides an early indication of an infection or inflammatory process. Lymph Percent 16.1 % 01/21/2025 11:09 AM EDT [facility] Brewster Percent 5.1 % 01/21/2025 11:09 AM EDT [facility] Eos Percent 4.0 % 01/21/2025 11:09 AM EDT [facility] Baso Percent 0.7 % 01/21/2025 11:09 AM EDT [facility] Neut # 6.0 1.6 - 6.1 x10(3)/mc L 01/21/2025 11:09 AM EDT [facility] Comment:Neutrophils equals s egs plus bands IMMGRAN# 0.1 0.0 - 0.1 x10(3)/mc L 01/21/2025 11:09 AM EDT [facility] Comment:Automated count of m etamyelocytes, myelocytes and promyelocytes. An absolute IG <0.1 is reported as 0.0. Lymph # 1.3 1.2 - 3.9 x10(3)/mc L 01/21/2025 11:09 AM EDT [facility] Brewster # 0.4 0.3 - 0.9 x10(3)/mc L 01/21/2025 11:09 AM EDT [facility] Eos# 0.3 0.0 - 0.5 x10(3)/mc L 01/21/2025 11:09 AM EDT [facility] Baso # 0.1 0.0 - 0.1 x10(3)/mc L 01/21/2025 11:09 AM EDT [facility] Aniso Slight 01/21/2025 11:09 AM EDT [facility] Hypochrom Slight 01/21/2025 11:09 AM EDT [facility] Ovalocyte Occasional 01/21/2025 11:09 AM EDT [facility] Blood VENOUS BLOOD / Unknown Venipuncture / Unknown 01/21/2025 5:17 AM EDT 01/21/2025 9:48 AM EDT us Nicola Figueroa MD HEMATOLOGY ORDERABLES F inal Result [facility] 1 [facility] , [address] [place] [id number] documented in this encounter Visit Diagnoses Not on filedocumented in this encounter Additional Health Concerns Assessment Noted Time PHQ-9 Depression Total Score: 2 01/15/20 3:17 PM EDT PHQ-2 Depression Total Score: 2 01/15/20 3:17 PM EDT documented as of this encounter Care Teams Servicer Travel Trailers Relationship Specialty Start Date End Date Miguel Angel Ohara MD [address] [facility] [address] [place] [address] PCP - General Family Medicine 04/13/24 Tali Carmona MD [address] [facility] [address] [place] [address] Consulting Physician Internal Medicine-Nephrology 08/24/20 documented as of this encounter
--- OUTSIDE RECORDS SUMMARY | 2025-01-22 05:00 | XMS_ITS | Encounter Summary ---
Author Organization [place] [address] Care Team Providers Care Hand Blocker Name Role Phone Tali Carmona MD Unavailable [phone] Miguel Angel Ohara MD Primary Care Provider [phone] Encounter Details Date Type Department Care Team (Latest Contact Info) Description 01/22/2025 5:00 AM EDT - 01/22/2025 11:59 PM EDT Hospital Encounter [facility] Referral Lab 1 [place], [place] [id number] Nicola Figueroa MD [address] [address] Discharge Disposition: Home or Self Care Social History Tobacco Use Types Packs/Day Years Used Date Smoking Tobacco: Never Smokeless Tobacco: Never Alcohol Use Standard Drinks/Week Comments Never 0 (1 standard drink = 0.6 oz pur e alcohol) [facility] Utilities Answer Date Recorded In the past 12 months has [employer], gas, oil, or water [employer] threatened to shut off services in your [...] Date Recorded PHQ-2 Total Score 2 01/14/2025 [facility] - Occupational Stress Questionnaire Answer Date Recorded [...] money to get more. Never true 05/2025 [facility] IP Transportation Answer D ate Recorded In [...] Date/Time Associated Diagnosis Comments PT / INR Routine 01/22/2025 6:49 AM EDT documented in this encounter Results * (ABNORMAL) PT / INR (01/22/2025 6:49 AM EDT) PT 29.8(H) 10.5 - 13.6 second(s) 01/22/2025 9:14 AM EDT [facility]REF[facility] INR 2.54(H) 0.91 - 1.18 (ratio) 01/22/2025 9:14 AM EDT [facility] Comment: Level of Therapy Indications Target INR Range Standard Dose Treatment and prophylaxis of venous 2.0 - 3.0 thrombosis, pulmonary embolism High Dose High risk patients with mechanical 2.5 - 3.5 heart valves Blood VENOUS BLOOD / Unknown Venipuncture / Unknown 01/22/2025 6:49 AM EDT 01/22/2025 8:07 AM EDT us Nicola Figueroa MD HEMATOLOGY ORDERABLES F inal Result [facility] 1 [facility] , [address] [place] [id number] documented in this encounter Visit Diagnoses Not on filedocumented in this encounter Additional Health Concerns Assessment Noted Time PHQ-9 Depression Total Score: 2 01/15/20 25 3:17 PM EDT PHQ-2 Depression Total Score: 2 01/15/20 3:17 PM EDT documented as of this encounter Care Teams Hand Blocker Relationship Specialty Start Date End Date Miguel Angel Ohara MD [address] [facility] [address] [place] [address] PCP - General Family Medicine 04/13/24 Tali Carmona MD [address] [address] Consulting Physician Internal Medicine-Nephrology 08/24/20 documented as of this encounter
--- OUTSIDE RECORDS SUMMARY | 2025-01-23 05:00 | XMS_ITS | Encounter Summary ---
Author Organization [place] [address] Care Team Providers Care Syrup Maker Name Role Phone Tali Carmona MD Unavailable [phone] Miguel Angel Ohara MD Primary Care Provider [phone] Encounter Details Date Type Department Care Team (Latest Contact Info) Description 01/23/2025 5:00 AM EDT - 01/23/2025 11:59 PM EDT Hospital Encounter [facility] Referral Lab 1 [place], [place] [id number] Nicola Figueroa MD [address] [address] Discharge Disposition: Home or Self Care Social History Tobacco Use Types Packs/Day Years Used Date Smoking Tobacco: Never Smokeless Tobacco: Never Alcohol Use Standard Drinks/Week Comments Never 0 (1 standard drink = 0.6 oz pur e alcohol) [facility] Utilities Answer Date Recorded In the past 12 months has [employer], gas, oil, or water [employer] threatened to shut off services in your [...] Date Recorded PHQ-2 Total Score 2 01/14/2025 [facility] - Occupational Stress Questionnaire Answer Date Recorded [...] money to get more. Never true 05/2025 [facility] IP Transportation Answer D ate Recorded In [...] Associated Diagnosis Comments PT / INR Routine 01/23/2025 7:30 AM EDT documented in this encounter Results * (ABNORMAL) PT / INR (01/23/2025 7:30 AM EDT) PT 29.2(H) 10.5 - 13.6 second(s) 01/23/2025 8:20 AM EDT PREFERRED [employer] INR 2.49(H) 0.91 - 1.18 (ratio) 01/23/2025 8:20 AM EDT [facility] Comment: Level of Therapy Indications Target INR Range Standard Dose Treatment and prophylaxis of venous 2.0 - 3.0 thrombosis, pulmonary embolism High Dose High risk patients with mechanical 2.5 - 3.5 heart valves Blood VENOUS BLOOD / Unknown Venipuncture / Unknown 01/23/2025 7:30 AM EDT 01/23/2025 7:57 AM EDT us Nicola Figueroa MD HEMATOLOGY ORDERABLES F inal Result [facility] [employer] 1 [facility] , [address] [place] [id number] documented in this encounter Visit Diagnoses Not on filedocumented in this encounter Additional Health Concerns Assessment Noted Time PHQ-9 Depression Total Score: 2 01/15/20 3:17 PM EDT PHQ-2 Depression Total Score: 2 01/15/20 3:17 PM EDT documented as of this encounter Care Teams Syrup Maker Relationship Specialty Start Date End Date Miguel Angel Ohara MD [address] [facility] [address] [place] [address] PCP - General Family Medicine 04/13/24 Tali Carmona MD [address] [address] Consulting Physician Internal Medicine-Nephrology 08/24/20 documented as of this encounter
--- OUTSIDE RECORDS SUMMARY | 2025-01-24 07:46 | XMS_ITS | Encounter Summary ---
Author Organization [place] [address] Care Team Providers Care Security Technician Name Role Phone Tali Carmona MD Unavailable [phone] Miguel Angel Ohara MD Primary Care Provider [phone] Encounter Details Date Type Department Care Team (Latest Contact Info) Description 01/24/2025 7:46 AM EDT - 01/24/2025 11:59 PM EDT Hospital Encounter [facility] Referral Lab 1 [place] [id number] Nicola Figueroa MD [address] [address] Discharge Disposition: Home or Self Care Social History Tobacco Use Types Packs/Day Years Used Date Smoking Tobacco: Never Smokeless Tobacco: Never Alcohol Use Standard Drinks/Week Comments Never 0 (1 standard drink = 0.6 oz pur e alcohol) [facility] Utilities Answer Date Recorded In the past 12 months has [employer], gas, oil, or water [employer] threatened to shut off services in your [...] Date Recorded PHQ-2 Total Score 2 01/14/2025 [facility] - Occupational Stress Questionnaire Answer Date Recorded [...] money to get more. Never true 05/2025 [facility] IP Transportation Answer D ate Recorded [...] Associated Diagnosis Comments PT / INR Routine 01/24/2025 6:16 AM EDT documented in this encounter Results * (ABNORMAL) PT / INR (01/24/2025 6:16 AM EDT) PT 30.0(H) 10.5 - 13.6 second(s) 01/24/2025 8:16 AM EDT PREFERRED [employer] INR 2.56(H) 0.91 - 1.18 (ratio) 01/24/2025 8:16 AM EDT [facility] Comment: Level of Therapy Indications Target INR Range Standard Dose Treatment and prophylaxis of venous 2.0 - 3.0 thrombosis, pulmonary embolism High Dose High risk patients with mechanical 2.5 - 3.5 heart valves Blood VENOUS BLOOD / Unknown Venipuncture / Unknown 01/24/2025 6:16 AM EDT 01/24/2025 7:47 AM EDT us Nicola Figueroa MD HEMATOLOGY ORDERABLES F inal Result [facility] 1 [facility] , [address] [place] [id number] documented in this encounter Visit Diagnoses Not on filedocumented in this encounter Additional Health Concerns Assessment Noted Time PHQ-9 Depression Total Score: 2 01/15/20 3:17 PM EDT PHQ-2 Depression Total Score: 2 01/15/20 3:17 PM EDT documented as of this encounter Care Teams Security Technician Relationship Specialty Start Date End Date Miguel Angel Ohara MD [address] [facility] [address] [place] [address] PCP - General Family Medicine 04/13/24 Tali Carmona MD [address] [address] Consulting Physician Internal Medicine-Nephrology 08/24/20 documented as of this encounter
--- OUTSIDE RECORDS SUMMARY | 2025-01-25 08:57 | XMS_ITS | Encounter Summary ---
Author Organization [place] [address] Care Team Providers Care Pipeline Gang Supervisor Name Role Phone Tali Carmona MD Unavailable [phone] Miguel Angel Ohara MD Primary Care Provider [phone] Encounter Details Date Type Department Care Team (Latest Contact Info) Description 01/25/2025 8:57 AM EDT - 01/25/2025 11:59 PM EDT Hospital Encounter [facility] Referral Lab 1 [place], [place] [id number] Nicola Figueroa MD [address] [address] Discharge Disposition: Home or Self Care Social History Tobacco Use Types Packs/Day Years Used Date Smoking Tobacco: Never Smokeless Tobacco: Never Alcohol Use Standard Drinks/Week Comments Never 0 (1 standard drink = 0.6 oz pur e alcohol) [facility] Utilities Answer Date Recorded In the past 12 months has [employer], gas, oil, or water [employer] threatened to shut off services in your [...] Date Recorded PHQ-2 Total Score 2 01/14/2025 [facility] - Occupational Stress Questionnaire Answer Date [...] money to get more. Never true 05/2025 [facility] IP Transportation Answer D ate Recorded [...] Associated Diagnosis Comments PT / INR Routine 01/25/2025 5:29 AM EDT documented in this encounter Results * (ABNORMAL) PT / INR (01/25/2025 5:29 AM EDT) PT 31.3(H) 10.5 - 13.6 second(s) 01/25/2025 9:41 AM EDT PREFERRED [employer] INR 2.67(H) 0.91 - 1.18 (ratio) 01/25/2025 9:41 AM EDT [email or web address] Comment: Level of Therapy Indications Target INR Range Standard Dose Treatment and prophylaxis of venous 2.0 - 3.0 thrombosis, pulmonary embolism High Dose High risk patients with mechanical 2.5 - 3.5 heart valves Blood VENOUS BLOOD / Unknown Venipuncture / Unknown 01/25/2025 5:29 AM EDT 01/25/2025 8:58 AM EDT us Nicola Figueroa MD HEMATOLOGY ORDERABLES F inal Result PREFERRED [employer] 1 [facility] , [address] [place] [id number] documented in this encounter Visit Diagnoses Not on filedocumented in this encounter Additional Health Concerns Assessment Noted Time PHQ-9 Depression Total Score: 2 01/15/20 3:17 PM EDT PHQ-2 Depression Total Score: 2 01/15/20 3:17 PM EDT documented as of this encounter Care Teams Pipeline Gang Supervisor Relationship Specialty Start Date End Date Miguel Angel Ohara MD [address] [facility] [address] [place] [address] PCP - General Family Medicine 04/13/24 Tali Carmona MD [address] [address] Consulting Physician Internal Medicine-Nephrology 08/24/20 documented as of this encounter
--- OUTSIDE RECORDS SUMMARY | 2025-01-26 07:45 | XMS_ITS | Encounter Summary ---
Author Organization [place] [address] Care Team Providers Care Knitted Cloth Examiner Name Role Phone Tali Carmona MD Unavailable [phone] Miguel Angel Ohara MD Primary Care Provider [phone] Encounter Details Date Type Department Care Team (Latest Contact Info) Description 01/26/2025 7:45 AM EDT - 01/26/2025 11:59 PM EDT Hospital Encounter [facility] Referral Lab 1 [place], [place] [id number] Nicola Figueroa MD [address] [address] Discharge Disposition: Home or Self Care Social History Tobacco Use Types Packs/Day Years Used Date Smoking Tobacco: Never Smokeless Tobacco: Never Alcohol Use Standard Drinks/Week Comments Never 0 (1 standard drink = 0.6 oz pur e alcohol) [facility] Utilities Answer Date Recorded In the past 12 months has [employer], gas, oil, or water [employer] threatened to shut off services in your [...] Date Recorded PHQ-2 Total Score 2 01/14/2025 [facility] - Occupational Stress Questionnaire Answer Date [...] money to get more. Never true 05/2025 [facility] IP Transportation Answer D ate Recorded [...] Associated Diagnosis Comments PT / INR Routine 01/26/2025 5:20 AM EDT documented in this encounter Results * (ABNORMAL) PT / INR (01/26/2025 5:20 AM EDT) PT 37.0(H) 10.5 - 13.6 second(s) 01/26/2025 8:33 AM EDT PREFERRED [facility] INR 3.14(H) 0.91 - 1.18 (ratio) 01/26/2025 8:33 AM EDT [facility] Comment: Level of Therapy Indications Target INR Range Standard Dose Treatment and prophylaxis of venous 2.0 - 3.0 thrombosis, pulmonary embolism High Dose High risk patients with mechanical 2.5 - 3.5 heart valves Blood VENOUS BLOOD / Unknown Venipuncture / Unknown 01/26/2025 5:20 AM EDT 01/26/2025 7:45 AM EDT us Nicola Figueroa MD HEMATOLOGY ORDERABLES F inal Result [facility] [address] [place] [id number] documented in this encounter Visit Diagnoses Not on filedocumented in this encounter Additional Health Concerns Assessment Noted Time PHQ-9 Depression Total Score: 2 01/15/20 3:17 PM EDT PHQ-2 Depression Total Score: 2 01/15/20 3:17 PM EDT documented as of this encounter Care Teams Knitted Cloth Examiner Relationship Specialty Start Date End Date Miguel Angel Ohara MD [address] [facility] [address] [place] [address] PCP - General Family Medicine 04/13/24 Tali Carmona MD [address] [address] Consulting Physician Internal Medicine-Nephrology 08/24/20 documented as of this encounter
--- OUTSIDE RECORDS SUMMARY | 2025-02-12 01:19 | XMS_ITS | Encounter Summary ---
Author Organization [place] [address] Care Team Providers Care Escrow Agent Name Role Phone Jennifer Carmona MD Unavailable [phone] Miguel Angel Ohara MD Primary Care Provider [phone] Reason for Visit * Reason Comments Shortness of Breath SOB currently on Neb with Duoneb and albuterol. Being treated * Auth/Cert/Inpt (Routine) Specialty Diagnoses / Procedures Referred By Contac t Referred To Contact Diagnoses REYES (dyspnea on exertion) Referral ID Status Reason Start Date Expiration Date Visits Re quested Visits Authorized [id number] 1 1 Encounter Details Date Type Department Care Team (Latest Contact Info) Description 02/12/2025 1:19 AM EDT - 02/18/2025 7:10 PM EDT Hospital Encounter [facility] [address] [place] [address] Jennifer Costello, DO [address] [place] [address] Osvaldo Pemberton MD [address] [place] [id number] Benoit Alvarez MD [address] [place] [address] REYES (dyspnea on exertion) (Primary Dx); Chest pressure; Other iron deficiency anemia Discharge Disposition: Group Home Facility Social History Tobacco Use Types Packs/Day Years Used Date Smoking Tobacco: Never Smokeless Tobacco: Never Alcohol Use Standard Drinks/Week Comments Never 0 (1 standard drink = 0.6 oz pur e alcohol) [facility] Utilities Answer Date Recorded In the [...] Date Recorded PHQ-2 Total Score 2 02/14/2025 [facility] - Occupational [...] money to get more. Never true 05/2025 [facility] HRSN [facility] IP Transportation Answer D ate Recorded In [...] Sign Reading Time Taken Comments Blood Pressure 130/96 02/18/2025 4:35 PM EDT Pulse 98 02/18/2025 5:14 PM EDT Temperature 36.5 C (97.7 F) 02/18/2025 4:35 PM EDT Respiratory Rate 16 02/18/2025 4:35 PM EDT Oxygen Saturation 97% 02/18/2025 4:35 PM EDT Inhaled Oxygen Concentration - - Weight 236.1 kg (520 lb 6.4 oz) 02/18/2025 4:19 AM EDT Height 170.2 cm (5' 7 ) 02/12/2025 5:09 AM EDT Body Mass Index 81.51 02/12/2025 5:09 AM EDT documented in this encounter Functional [...] alcohol? 0 02/12/2025 5:00 AM EDT Jessica Mckinley RN How many drinks containing a lcohol do you have on a typical day when you are drinking? 0 02/12/2025 5:00 AM EDT Jessica Mckinley RN How often do you have six or more drinks on one occasion? 0 02/12/2025 5:00 AM EDT Braulio Mckinley RN AUDIT-C to Determine Rows [...] in doing things 1 02/14/2025 12:22 PM EDT Peggy Baker R N Feeling down, depressed, or hopeless [...] Assessment Author No Risk 02/12/2025 1:15 AM Luzmaria Kevin RN * [place] Suicide Severity Rating Scale (Q shift for moderate and high) Question Answer Date of Assessment Author 1. In the past month, have y ou wished you were or wished you could go to sleep and not wake up? 0 02/12/2025 1:15 AM Koffi Kevin RN 2. In the past month, have y ou actually had any thoughts of killing yourself? (If no, skip to question 6) 0 02/12/2025 1:15 AM Jasbir Kevin RN 6. Have you ever done anythi ng, started to do anything, or prepared to do anything to end your life? 0 02/12/2025 1:15 AM Jasbir Kevin RN documented as of this encounter Mental Status * Because of a physical, mental or emotional condition, does this person have serious difficulty concentrating, remembering or making decisions? Answer Entry Date Author No 01/06/2025 12:07 PM Elysia Nelson RN documented in this encounter Discharge Summaries * Salazar Snow MD - 02/18/2025 12:[address] [facility] Patient Name: Mona Nettles : 1980 Admit Date: 02/12/2025 Discharge Date: 02/18/2025 Admitting Physician: Osvaldo Pemberton MD Discharging Physician: Salazar Snow MD Reason for Hospitalization: Active Hospital Problems Iron deficiency anemia *REYES (dyspnea on exertion) Chest pressure Acute congestive heart failure (HCC) Demand ischemia (HCC) Chest pain Type 2 diabetes mellitus with diabetic polyneuropathy, without long-term current use of insulin (HCC) Chronic pain syndrome Mood disorder Stage 3 acute kidney injury Presence of IVC filter Factor V Leiden Type 2 diabetes mellitus, without long-term current use of insulin (HCC) AURELIA (obstructive sleep apnea) Hypothyroidism Hypertension Anxiety Brief Hospital Summary: Mona Nettles is a 44-year-old female with a history of hypertension, diabetes mellitus, chronic kidney disease, morbid obesity, obstructive sleep apnea, chronic lymphedema, Factor V Leiden with prior DVT/PE and IVC filter, and hypothyroidism who was admitted on 02/12/2025 for evaluation of worsening dyspnea on exertion and chest pain. On presentation, she was found to have elevated BNP (2,038), elevated troponins (31, 27) without a pattern consistent with acute coronary syndrome, and evidence of fluid overload on exam, with recent history of pneumonia and abdominal cellulitis. Cardiology was consulted and an echocardiogram demonstrated preserved left ventricular ejection fraction (60- 65%) with no segmental wall motion abnormalities, and chest CT showed near resolution of prior pneumonia. The diagnosis of acute diastolic congestive heart failure with fluid overload was made, likely multifactorial in etiology including recent pneumonia, morbid obesity, and AURELIA. She was treated with aggressive IV diuresis (IV furosemide), resulting in a net negative fluid balance of over 6 liters and resolution of her dyspnea and edema, but developed a transient rise in creatinine, prompting cessation of further diuresis and transition planning to oral diuretics as renal function improved. No ischemic evaluation was pursued during this admission due to resolution of symptoms, preserved EF, and high likelihood of false positive results given her body habitus. She remained hemodynamically stable and on room air at discharge. During her hospitalization, she was also found to have iron deficiency anemia (Hgb gilmar 8.6-8.8, ferritin 50, iron 20, transferrin saturation 7%), with a history of intolerance to oral iron and recent episodes of heavy menstrual bleeding and a single episode of rectal bleeding. Gastroenterology was consulted and she received IV iron replacement. After holding warfarin and bridging with IV heparin, she underwent EGD and colonoscopy, both of which were normal. Warfarin was resumed with enoxaparin bridging post-procedure. Other issues addressed during admission included management of chronic anticoagulation for Factor VLeiden and history of DVT/PE, with warfarin held andre-procedurally and bridged with IV heparin and subsequently enoxaparin; chronic pain syndrome; AURELIA with noted noncompliance with CPAP; hypertension, which was managed with uptitration of amlodipine and propranolol; type 2 diabetes managed with sliding scale insulin during admission; and chronic kidney disease with transient GRAZYNA related to diuresis, which resolved with supportive care. She also received a short course of antibiotics for dental caries identified during the admission. At discharge, she was medically stable and transferred to [facility] rehab for continued care and physical therapy. Labs and imaging follow-up needed: Consultants: Discharge Exam: Vitals: 02/18/25 1635 BP: 130/96 Pulse: 95 Resp: 16 Temp: 97.7 ??F (36.5 ??C) SpO2: 97% NAD, comfortable Clear lungs, no wheezing RRR, no murmur Soft, NT +BS No LE edema Correct Full Discharge Med List: Medication List START taking these medications amoxicillin-clavulanate 875-125 mg Tab Dose: 875 mg Refills: 0 Commonly known as: AUGMENTIN 1 Tablet, Oral, 2 TIMES DAILY benzocaine 10 % Gel Refills: 0 Commonly known as: ORAJEL Mouth/Throat, PRN benzonatate 100 mg Cap Dose: 100 mg Refills: 0 Commonly known as: TESSALON 100 mg, Oral, 3 TIMES DAILY PRN enoxaparin 150 mg/mL Syrg Dose: 150 mg Refills: 0 Commonly known as: LOVENOX 150 mg, Subcutaneous, 2 TIMES DAILY CHANGE how you take these medications amLODIPine 10 mg Tab Dose: 10 mg Refills: 0 Start: February 19, 2025 Commonly known as: NORVASC 10 mg, Oral, DAILY What changed: medication strength how much to take oxyCODONE 30 mg Tr12 Dose: 30 mg Refills: 0 What changed: Another medication with the same name was removed. Continue taking this medication, and follow the directions you see here. torsemide 20 mg Tab Dose: 40 mg Refills: 0 Commonly known as: DEMADEX 40 mg, Oral, DAILY What changed: how much to take CONTINUE taking these medications albuterol 90 mcg/actuation [...] mcg Refills: 0 Commonly known as: SYNTHROID metFORMIN 500 mg Tab Dose: 500 mg Refills: 0 Commonly known as: GLUCOPHAGE 500 mg, Oral, 2 TIMES DAILY WITH MEALS mirabegron 50 mg Tb24 Dose: 50 mg Refills: 0 Commonly known as: MYRBETRIQ propranoloL 20 mg Tab Dose: 20 mg Refills: 0 Commonly known as: INDERAL QUEtiapine 100 mg Tab Dose: 100 mg Refills: 0 Commonly known as: SEROquel rOPINIRole 2 mg Tab Dose: 2 mg Refills: 0 Commonly known as: REQUIP tiZANidine 4 mg Tab Dose: 8 mg Refills: 0 Commonly known as: ZANAFLEX traMADoL 50 mg Tab Dose: 50-100 mg Refills: 0 Commonly known as: ULTRAM warfarin 5 mg Tab Dose: 5-7.5 mg Refills: 0 Commonly known as: COUMADIN Where to Get Your Medications Information about where to get these medications is not yet available Ask your nurse or doctor about these medications amLODIPine 10 mg Tab amoxicillin-clavulanate 875-125 mg Tab benzocaine 10 % Gel benzonatate 100 mg Cap enoxaparin 150 mg/mL Syrg torsemide 20 mg Tab Condition at Discharge: stable Disposition: Rehab - [facility] Follow-up: Miguel Angel Ohara MD [address] [place] [address] Schedule an appointment as soon as possible for a visit in 1 week(s[facility] [address] [place] [address] Follow up I have spent > 30 minutes spent on discharging this patient, including summarization of medical records, review and prescription of medications, setting up patient follow up, etc; and counseling patient and/or family, which required over 50% of this time. Salazar Snow MD 02/18/2025 documented in this encounter Discharge Instructions * Discharge Instructions* Kwaku Drake MD - 02/17/2025 10:12 AM EDT Images from the original note were not included. +++++++++++++++++++++++++++++++++++++++++++++++++++++++++++++++++++ [facility] Discharge Instructions - Following Anesthesia We appreciate the opportunity to care for you today! Here are a few reminders as you head home: A responsible adult, 18 years or older must be in attendance until tomorrow morning. Rest quietly today. May resume usual diet as tolerated or as directed by your surgeon. Do not drive or operate any machinery until tomorrow morning or as instructed. Do not make any legal or important decisions for the next 24 hours. Do not drink alcoholic beverages or take sleeping pills for 24 hours unless otherwise directed. If you have questions or concerns regarding your anesthesia experience, please call our office at . Get Well Soon! [facility] +++++++++++++++++++++++++++++++++++++++++++++++++++++++++++++++++++ * Attachments The following attachments cannot be sent through Care Everywhere. * Heart failure (Croatian) documented in this encounter Medications at Time of Discharge albuterol (PROVENTIL HFA;VENTOLIN HFA) 90 mcg/actuation Inhl HFA Aerosol Inhaler Inhale 2 Puffs into the lungs as needed. 12/23/2024 amLODIPine (NORVASC) 10 mg Oral Tablet Take 1 Tablet by mouth daily. 02/19/2025 amoxicillin-clavu lanate (AUGMENTIN) 875-125 mg Oral Tablet Take 1 Tablet by mouth 2 times daily. 02/18/2025 atorvastatin (LIPITOR) 40 mg Oral Tablet Take 40 mg by mouth nightly. benzocaine (ORAJEL) 10 % MM Gel Take by mouth as needed for Pain (Tooth pain) for up to 2 doses. 02/18/2025 benzonatate (TESSALON) 100 mg Oral Capsule Take 1 Capsule by mouth 3 times daily as needed for Cough. 02/18/2025 famotidine (PEPCID) 20 mg Oral Tablet Take [...] hr Take 50 mg by mouth daily. oxyCODONE 30 mg Oral tablet,oral only,ext.rel.12 hr Take 30 mg by mouth every 12 hours. propranoloL (INDERAL) 20 mg Oral Tablet Take 20 mg by mouth every 12 hours. QUEtiapine (SEROQUEL) 100 mg Oral Tablet Take 100 mg by mouth 2 times daily. rOPINIRole (REQUIP) 2 mg Oral Tablet Take 2 mg by mouth 3 times daily. tiZANidine (ZANAFLEX) 4 mg Oral Tablet Take 8 mg by mouth nightly. at bedtime 07/26/2022 torsemide (DEMADEX) 20 mg Oral Tablet Take 2 Tablets by mouth daily. 02/18/2025 traMADoL (ULTRAM) 50 mg Oral Tablet Take 50-100 mg by mouth 4 times daily. warfarin (COUMADIN) 5 mg Oral Tablet Take 5-7.5 mg by mouth daily. Takes 7.5 mg MWF and 5 mg on all other days. enoxaparin (LOVENOX) 150 mg/mL SubQ Syringe Inject 1 mL under the skin 2 times daily for 5 days. 02/18/2025 02/23/2025 documented as of this encounter Ordered Prescriptions Prescription Sig Dispense Quantity Refills Last Filled Start Date End Date benzonatate (TESSALON) 100 mg Oral Capsule Take 1 Capsule by mouth 3 times daily as needed for Cough. 02/18/2025 torsemide (DEMADEX) 20 mg Oral Tablet Take 2 Tablets by mouth daily. 02/18/2025 benzocaine (ORAJEL) 10 % MM Gel Take by mouth as needed for Pain (Tooth pain) for up to 2 doses. 02/18/2025 amoxicillin-clavul anate (AUGMENTIN) 875-125 mg Oral Tablet Take 1 Tablet by mouth 2 times daily. 02/18/2025 amLODIPine (NORVASC) 10 mg Oral Tablet Take 1 Tablet by mouth daily. 02/19/2025 enoxaparin (LOVENOX) 150 mg/mL SubQ Syringe Inject 1 mL under the skin 2 times daily for 5 days. 02/18/2025 5 documented in this encounter Discharge Disposition Disposition Code Departure Means Destination Comment s Group Home Facility [facility] e[facility] documented in this encounter Progress Notes * Lucia Moon, PT - 02/18/2025 3:08 PM EDT 02/18/25 1508 PT Subjective Note Type Follow Up Treatment Attempt Patient Room/Unit 3701 Therapy delay reason Patient eating;Unavailable due to tests/procedures Clinical Course Pt was eating. Then getting xray. Pt reported she's not aware of plan to d/c today or plan to transition from heparin to coumadin. PT spoke to pt's nurse: he will speak with pt. * Peggy Baker, RN - 02/18/2025 1:56 PM EDT Pt discharging to [facility] via ambulance scheduled for 1829. CC remains available for any needs. * Jennifer Suarez NA - 02/18/2025 1:11 PM EDT Followed up with patient re: request for transportation assistance. Scheduled with: [facility] for Date / TIme: 02/18/25 @ 1830 Trip #: [id number]. Patient and RN aware of tentative plan. * Shazia Rivera [facility] - 02/18/2025 12:36 PM EDT Pharmacy Consult: Warfarin HPI: Mona Nettles is a 44 y.o. female admitted 02/12 for increased dyspnea. Inpatient diagnosis included possible CHF exacerbation, pneumonia, HTN, DM, iron deficiency anemia. Recent hospitalization (01/13-01/20) for PNA and abdominal wall cellulitis, followed by transfer to [facility] rehab (01/20-01/26). Allergies: Patient has no known allergies Indication for warfarin: Heterozygous FVL, hx DVT/PE, s/p IVC filter. INR Goal: 2.0 to 3.0 Warfarin therapy prior to admit: 7.5 mg daily. Warfarin managed outpatient by: outpatient physician's office - Dr. Ohara ([facility] [place]) - patient has home monitor. VS (last 24-hr): BP Min: 112/48 Max: 177/82 BP MAP (mmHg) Av.8 Min: 64 Max: 106 Pulse Av.7 Min: 65 Max: 96 Resp Av.8 Min: 16 Max: 20 Temp Av.5 ??F (36.4 ??C) Min: 97.3 ??F (36.3 ??C) Max: 98.1 ??F (36.7 ??C) SpO2 Av.3 % Min: 96 % Max: 100 % Weight: (!) 520 lb 6.4 oz (236.1 kg) (02/18/25 0419) BMI (Calculated): 82.5 (02/12/25 0509) Labs: Recent Labs 02/12/25 02202/13/25 0624 02/14/25 0654 02/15/25 0727 02/16/25 0640 02/17/25 0526 02/18/25 0705 INR 3.15* 2.66* 3.06* 2.88* 2.45* 1.82* 1.42* Recent Labs 02/12/25 02202/12/25 0408 02/12/25 0935 02/13/25 0624 02/14/25 0654 02/15/25 0725 02/18/25 0059 02/18/25 0705 HEPARINLEVEL -- -- -- -- -- -- 0.21* -- HGB 9.5* -- < > 8.6* 8.8* -- -- -- PLT 271 -- < > 231 236 -- -- -- HSCTNT 31* 27* -- -- -- -- -- -- CREATININE 1.08 -- < > 1.35* 1.36* < > -- 1.19 BUN 10 -- < > 11 17 < > -- 14 AST -- -- < > 15 13 < > -- 20 ALT -- -- < > 10 11 < > -- 12 LABBILI -- -- < > 1.2 0.8 < > -- 1.1 < > = values in this interval not displayed. Imaging: EK EKG 12 LEAD Result Date: 02/18/2025 [facility] Test Date: 2025-02-18 Pat Name: MONA NETTLES Department: DEPID Room: E3708 Gender: Female Popcorn Attendant: Tsering GARCIAB: 1980 Requested By: DANYA Oates Order Number: [id number] Reading MD: Measurements Intervals [place] Rate: 92 P: 58 ME: 179 QRS: 54 QRSD: 102 T: 32 QT: 385 QTc: 476 Interpretive Statements SINUS RHYTHM LOW QRS VOLTAGE IN PRECORDIAL LEADS [QRS DEFLECTION < 1.0 mV IN CHEST LEADS] POSSIBLE ANTERIOR MYOCARDIAL INFARCTION [30 ms Q WAVEIN V3/V4, OR R < 0.2 mV IN V4], PROBABLY OLD XR CHEST AP PORTABLE Result Date: 02/17/2025 limited study. NG tube most likely in the stomach. see above. - Note: Radiology results need to be interpreted within a comprehensive clinical context. If you have questions about the radiology report, please contact the office of the ordering clinician. EK EKG 12 LEAD Result Date: 02/12/2025 [facility] Test Date: 2025-02-12 Pat Name: MONA NETTLES Department: DEPID Room: E3708 Gender: Female Popcorn Attendant: : 1980 Requested By: JENNIFER Dutta Order Number: [id number] Reading MD: Mustapha Piper Measurements Intervals [place] Rate: 66 P: 51 ME: 164 QRS:46 QRSD: 95 T: 35 QT: 414 QTc: 436 Interpretive Statements SINUS RHYTHM NONSPECIFIC T WAVE ABNORMALITY Electronically Signed On 02-12-2025 17:30:13 EDT by Mustapha Piper EC ECHOCARDIOGRAM 2D M MODE COMPLETE W CONTRAST Result Date: 02/12/2025 Conclusions * Left ventricle is not well visualized. * Left ventricular function is normal with an estimated ejection fraction of 60-65%. * Left ventricular segmental wall motion is grossly normal, however endocardial definition is limited. * The left ventricular diastolic function is indeterminate. * Right ventricle is not well visualized. * Right ventricular systolic function is normal by objective measurements, with a tricuspid annular plane systolic excursion of 2.4 cm and a RV s' of 16.3 cm/s. CT CHEST WO CONTRAST Result Date: 02/12/2025 Essentially resolved right lung opacities, likely an infectious pneumonia. - Note: Radiology results need to be interpreted within a comprehensive clinical context. If you have questions about the radiology report, please contact the office of the ordering clinician. XR CHEST AP PORTABLE Result Date: 02/12/2025 No acute cardiopulmonary process. - Note: Radiology results need to be interpreted within a comprehensive clinical context. If you have questions about the radiology report, please contact the officeof the ordering clinician. Date INR Warfarin Dose Notes 02/11 --- 02/12 3.15 7.5 mg 02/13 2.66 7.5 mg 02/14 3.06 5 mg 02/15 2.88 7.5 mg 02/16 2.45 HELD 02/17 1.82 HELD 02/18 1.42 10 mg planned Resumption post procedure requested A/P: Physician orders and progress notes reviewed. INR 1.42 (below goal range today) after holding for GI procedure. Primary requesting to resume today prior to discharge. Primary to order enoxaparin bridge in discharge. With BMI of ~82, recommend the lower dosing range of ~ 1.4 mg/kg/day. Lovenox 150 mg every 12 hours until INR > 2. Will dose warfarin 10 mg today. INR daily and CBC every 48 if remains inpatient.. DISCHARGE RECOMMENDATIONS: Take 10 mg of warfarin on Sunday 02/18 (today). Then resume normal dose of 7.5 mg daily. Enoxaparin 150 mg every 12 hours until INR > 2. Please follow INR daily during resumption of warfarin to ensure enoxaparin is discontinued when needed. Shazia Rivera, PharmD, BCPS * Salazar Snow MD - 02/18/2025 12:23 PM EDT EGD and colonoscopy normal Okay [facility] with Lovenox/Coumadin for bridging Augmentin twice daily for 5 days for dental cavities/caries Salazar Snow MD * Bernie Phillip OT - 02/18/2025 9:41 AM EDT 02/18/25 0941 OT Subjective Note Type Follow Up Treatment Attempt Patient Room/Unit 3708 OT Subjective Comments #1 Pt is out for endo. Therapy delay reason Unavailable due to tests/procedures * Salazar Snow MD - 02/18/2025 8:15 AM EDT HOSPITALIST PROGRESS NOTE Admit Date: 02/12/2025 LOS: 5 days FOLLOW UP REASON (S): SAHRA, history of DVT PE, factor B Leiden deficiency, AURELIA, morbid obesity Subjective: Seen today, complaining of dental pain. Still has no dental insurance to see a dentist. 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) - FSBS (Correction Only) Input 1 Each MISCELLANEOUS QID MEALTIME/HS And insulin aspart (NovoLOG) - Correction - Calculator 0-40 Units Subcutaneous QID MEALTIME/HS LEVOthyroxine 75 mcg Oral DAILY EARLY AM miconazole Topical BID mirabegron 50 mg Oral Daily oxyCODONE 30 mg Oral *Q12H polyethylene glycol 17 g Oral Daily propranoloL 20 mg Oral *Q12H QUEtiapine 100 mg Oral BID rOPINIRole 2 mg Oral TID tiZANidine 8 mg Oral Nightly Continuous Infusions: BP 149/63 (BP Location: Right arm, Patient Position: Semi Fowlers) Pulse 93 Temp 97.3 ??F (36.3??C) (Oral) Resp 16 Ht 5' 7 (1.702 m) Wt (!) 520 lb 6.4 oz (236.1 kg) LMP 12/15/2024 SpO2 98% BMI 81.51 kg/m?? Patient is in bed alert and awake Dental caries upper teeth Lungs CTA. RRR Soft +BS, nontender to palpation Radiology: XR CHEST AP PORTABLE Result Date: 02/17/2025 XR CHEST AP PORTABLE, 02/17/2025 12:02 PM CLINICAL HISTORY: -verify tube placement COMPARISON: None.PROCEDURE COMMENTS: AP portable technique. FINDINGS: Support devices: NG tube in the stomach thoughnot well visualized. Study limited by patient body habitus and portable technique. limited study. NG tube most likely in the stomach. see above. - Note: Radiology results need to be interpreted within a comprehensive clinical context. If you have questions about the radiology report, please contact the office of the ordering clinician. ASSESSMENT AND RECOMMENDATIONS: Dyspnea on exertion, resolved Secondary to fluid overload and recent pneumonia Currently on room air Chronic diastolic CHF with fluid overload s/p IV Lasix Currently on room air Lasix held secondary to recent GRAZYNA NSVT, no recurrence on telemetry Telemetry reviewed SAHRA Plan for eventual EGD and colonoscopy with GI this morning NG tube has been removed History of DVT and PE s/p IVC filter is on IV heparin on hold Chronic anticoagulation on Coumadin, currently held. 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 Plan to go to [facility] rehab Salazar Snow MD * Christel Mcnally, [facility] - 02/18/2025 1:37 AM EDT Pharmacy Evening Follow-up: Heparin Recent Labs 02/15/25 0727 02/16/25 0640 02/17/25 0526 02/18/25 0059 INR 2.88* 2.45* 1.82* -- HEPARINLEVEL -- -- -- 0.21* Current rate: 1500 units/hr, started @ 02/17 17:46 Anti-Xa is subtherapeutic at 0.21 unit/mL (goal anti-Xa 0.3 - 0.7 unit/mL). Will increase modestly by 1 unit/kg/hr to 1800 units/hour. Will omit bolus due to planned stop timeof 0300. Will follow pertinent lab parameters in 6 hours after heparin restarts and adjust for goal (anti-Xa0.3 - 0.7 unit/mL). Platelets are being monitored at minimum every 48 hours while the patient is receiving unfractionated heparin therapy. Thank you, Christel Mcnally, PharmD * Alexia Cline, [facility] - 02/17/2025 6:38 PM EDT S: Mona Nettles is a(n) 44 y.o. female admitted 02/12 with increased dyspnea patient receiving work up with GI for anemia requiring GI procedures. Allergies: Patient has no known allergies.. PMH significant for history of DVT/PE, IVC filter, factor V Leiden deficiency, AURELIA, morbid obesity, hypertension . Pharmacy consulted for management of heparin pharmacotherapy. Bleeding signs/symptoms noted: none. O: Anticoagulation therapy received prior to consult: warfarin 7.5 mg daily - last dose 02/15 Most Recent Labs: Recent Labs 02/12/25 0935 02/13/25 0624 02/14/25 0654 WBC 7.2 6.2 6.8 HGB 9.5* 8.6* 8.8* HCT 31.5* 29.5* 29.4* PLT 278 231 236 Recent Labs 02/15/25 0727 02/16/25 0640 02/17/25 0526 INR 2.88* 2.45* 1.82* Recent Labs 02/12/25 02202/12/25 0408 02/12/25 0935 02/15/25 0725 02/16/25 0640 02/17/25 0528 HSCTNT 31* 27* -- -- -- -- BUN 10 -- < > 19 20 19 CREATININE 1.08 -- < > 1.29 1.38* 1.35* < > = values in this interval not displayed. Weight: (!) 528 lb (239.5 kg) Recent Labs 02/12/25 02202/12/25 0408 HSCTNT 31* 27* A/P: Physician orders and progress notes reviewed. Will initiate therapy per low dose protocol, adjusted for weight. Will bolus 5000 units (~ 20 units/kg) and initiate infusion at 1500 units/hour (~ 6.3 units/kg/hr). Pharmacy will follow pertinent lab parameters in 6 hours and adjust for goal (anti-Xa 0.3 - 0.7 unit/mL). Will turn off drip at 0300 for planned procedure time around 0900 with GI. Alexia Cline, PharmD, BCPS * Swapna Paul - 02/17/2025 4:09 PM EDT Images from the original note were not included. 02/17/25 1100 Reason for Visit Date of visit 02/17/25 Visited With Patient Visited By [facility] ([facility]) Patient Assessment Patient Hindu at Registration Judaism Interventions with Patient Holy Communion Spiritual Communion Primer Inspector, Pastoral and Spiritual Care For non-urgent requests, please place a Pastoral Care consult in [facility]. For all urgent matters, please send an urgent [facility] Secure Chat to the Pastoral Care group at your location. Between 11pm and 7am, please use On-Call Finder to send an [facility] Secure Chat to the on-call butter fat tester. Pastoral Care office phone numbers: EDG/COV/GRT [phone], MANNY [phone], FTT [phone], DBN [phone] * Leticia Roca COTA - 02/17/2025 12:51 PM EDT 02/17/25 0940 OT Subjective Note Type Treatment/Progress Patient Room/Unit 9524 OT Subjective Comments #1 Pt is in bed reporting having a hard time drinking her preop laxatives. Agreeable to OT. Discharge Information This progress note will serve as the discharge summary if no further therapy is provided prior to the patient being discharged from the hospital. Admitting Diagnosis REYES. Pt admitted on 02-12 via ED with SOB. Pt diagnosed with CHF. Past Med Hx Pt has a past [...] INFERIOR VENA CAVA FILTER PLACEMENT. Diagnostic Testing CXR: No acute cardiopulmonary process. Chest CT: Essentially resolved right lungopacities, likely an infectious pneumonia. Echo: * Left ventricle is not well visualized. * Left ventricular function is normal with an estimated ejection fraction of 60-65%. * Left ventricular segmental wall motion is grossly normal, however endocardial definition is limited. * The left ventricular diastolic function is indeterminate. * Right ventricle is not well visualized. * Right ventricularsystolic function is normal by objective measurements, with a tricuspid annular plane systolic excursion of 2.4 cm and a RV s' of 16.3 cm/s. Clinical Course Patient presented to ER on 02/12 with complaints of SOB, reports worsening SOB over last week, feels like she struggles to breathe with any minor activity and cannot move, +chest pressure, has used her inhaler without relief, CXR shows no acute cardiopulmonary process, troponin and BNP elevated, EKG shows sinus rhythm with rate of 66 bpm, repeat troponin down trending, CT ordered to further evaluate dyspnea shows essentially resolved R lung opacities, likely an infectious pneumonia, admitted for further care of REYES and chest pressure Precautions Therapy Precautions Yes Precaution Info Given Yes;To use call light to request assistance with all mobility Other precautions fall risk, REYES Cognition Orientation Intact Additional comments Cooperative and chatty. Pain Screening PT/OT Patient Currently in Pain Yes Pain Location Generalized;Back Pain Intervention(s) Repositioned Observation Presentation Patient resting in bed Observation IV;Bed alarm;Telemetry Vitals VSS Additional Comments Refusing OOB due to anticipating to be on the BSC for the rest of the day and wanting to stay in bed. ADL Interventions Where Assessed Supine, bed Feeding Assistance Independent LE Dressing Assistance Maximal;Don/doff R sock;Don/doff L sock Bed Mobility Rolling Supervision OT Gait Gait Not performed (due to preop prep) Balance Sitting Balance 3+/5 sits without UE support for 30 seconds or greater Interventions Balance Training fxl reaching and sitting balance Upper Extremity Exercise BUE with orange theraband overhead with rest breaks 5 x 10 AM PAC: How much help from another [...] to request assistance with all mobility;Patient/Family Education;Safetywith mobility;Role of Therapy;Cues for proper technique;Discharge planning;Up with assistance only;Precautions Patient Safety Patient in bed with needs in reach;Bed alarm activated;Nursing notified of status Recommendation OT Recommendation Low frequency therapy with intensity appropriate for patient need recommended. Time In / Time Out [id number] IP OT Individual Treatment Minutes 40 * Salazar Snow MD - 02/17/2025 12:34 PM EDT HOSPITALIST PROGRESS NOTE Admit Date: 02/12/2025 LOS: 4 days FOLLOW UP REASON (S): Recent fluid overload, SAHRA, history of DVT/PE, IVC filter, factor V Leiden deficiency, AURELIA, morbid obesity, hypertension Subjective: Seen today, no fever. No chills. NG tube placed as well not able to swallow the bowel prep Objective: I have reviewed all labs, imaging studies and current inpatient medications as of this date Scheduled Meds: amLODIPine 10 mg Oral Daily atorvastatin 40 mg Oral Nightly famotidine 40 mg Oral Nightly FLUoxetine 60 mg Oral Nightly folic acid 1 mg Oral Daily 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) - FSBS (Correction Only) Input 1 Each MISCELLANEOUS QID MEALTIME/HS And insulin aspart (NovoLOG) - Correction - Calculator 0-40 Units Subcutaneous QID MEALTIME/HS LEVOthyroxine 75 mcg Oral DAILY EARLY AM miconazole Topical BID mirabegron 50 mg Oral Daily oxyCODONE 30 mg Oral *Q12H polyethylene glycol 17 g Oral Daily polyethylene glycol 2,000 mL Oral Once propranoloL 20 mg Oral *Q12H QUEtiapine 100 mg Oral BID rOPINIRole 2 mg Oral TID tiZANidine 8 mg Oral Nightly Continuous Infusions: BP 135/75 (BP Location: Right arm, Patient Position: Semi Fowlers) Pulse 73 Temp 97.7 ??F (36.5??C) (Oral) Resp 18 Ht 5' 7 (1.702 m) Wt (!) 528 lb (239.5 kg) LMP 12/15/2024 SpO2 99% BMI 82.70 kg/m?? Patient is in bed alert and awake Lungs CTA. RRR Soft +BS, NG tube in place, obese abdomen No leg edema Radiology: XR CHEST AP PORTABLE Result Date: 02/17/2025 XR CHEST AP PORTABLE, 02/17/2025 12:02 PM CLINICAL HISTORY: -verify tube placement COMPARISON: None.PROCEDURE COMMENTS: AP portable technique. FINDINGS: Support devices: NG tube in the stomach thoughnot well visualized. Study limited by patient body habitus and portable technique. limited study. NG tube most likely in the stomach. see above. - Note: Radiology results need to be interpreted within a comprehensive clinical context. If you have questions about the radiology report, please contact the office of the ordering clinician. ASSESSMENT AND RECOMMENDATIONS: Dyspnea on exertion, resolved Secondary to fluid overload and recent pneumonia Chronic diastolic CHF with fluid overload s/p IV Lasix Currently on room air Lasix held secondary to recent GRAZYNA NSVT, no recurrence on telemetry (reviewed by me today) SAHRA Plan for eventual EGD and colonoscopy with GI NGT placed and noted to receive bowel prep History of DVT and PE s/p IVC filter Chronic anticoagulation on Coumadin, currently held. INR less than 2 History of recent superficial vein thrombosis 12/2024 Start IV heparin, held 6 hours prior to procedure scheduled for 02/18 Pharmacy consult Chronic pain syndrome Restless leg syndrome Morbid obesity Essential hypertension AURELIA on CPAP Acquired hypothyroidism Medically Ready for Discharge?: No EDOD: 02/18/2025 Not Ready for Discharge because: pending EGD and colonoscopy to be done on 02/18 Salazar Snow MD * Shazia Rivera, [facility] - 02/17/2025 11:09 AM EDT Pharmacy Consult: Warfarin HPI: Mona Nettles is a 44 y.o. female admitted 02/12 for increased dyspnea. Inpatient diagnosis included possible CHF exacerbation, pneumonia, HTN, DM, iron deficiency anemia. Recent hospitalization (01/13-01/20) for PNA and abdominal wall cellulitis, followed by transfer to [facility] rehab (01/20-01/26). Allergies: Patient has no known allergies Indication for warfarin: Heterozygous FVL, hx DVT/PE, s/p IVC filter. INR Goal: 2.0 to 3.0 Warfarin therapy prior to admit: 7.5 mg daily. Warfarin managed outpatient by: outpatient physician's office - Dr. Ohara ([facility] [place]) - patient has home monitor. VS (last 24-hr): BP Min: 108/43 Max: 147/65 BP MAP (mmHg) Av.3 Min: 58 Max: 97 Pulse Av.6 Min: 71 Max: 89 Resp Av.7 Min: 16 Max: 18 Temp Av.7 ??F (36.5 ??C) Min: 97.1 ??F (36.2 ??C) Max: 98.3 ??F (36.8 ??C) SpO2 Av.8 % Min: 96 % Max: 100 % Weight: (!) 528 lb (239.5 kg) (02/17/25 0535) BMI (Calculated): 82.5 (02/12/25 0509) Labs: Recent Labs 02/12/25 0221 02/13/25 0624 02/14/25 0654 02/15/25 0727 02/16/25 0640 02/17/25 0526 INR 3.15* 2.66* 3.06* 2.88* 2.45* 1.82* Recent Labs 02/12/25 0221 02/12/25 0408 02/12/25 0935 02/13/25 0624 02/14/25 0654 02/15/25 0725 02/17/25 0528 HGB 9.5* -- < > 8.6* 8.8* -- -- PLT 271 -- < > 231 236 -- -- HSCTNT 31* 27* -- -- -- -- -- CREATININE 1.08 -- < > 1.35* 1.36* < > 1.35* BUN 10 -- < > 11 17 < > 19 AST -- -- < > 15 13 < > 13 ALT -- -- < > 10 11 < > 10 LABBILI -- -- < > 1.2 0.8 < > 0.6 < > = values in this interval not displayed. Imaging: EK EKG 12 LEAD Result Date: 02/12/2025 [place] [facility] Test Date: 2025-02-12 Pat Name: MONA NETTLES Department: DEPID Room: E3708 Gender: Female 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 : 1980 Requested By: JENNIFER Dutta Order Number: [id number] Reading MD: Mustapha Piper Measurements Intervals [place] Rate: 66 P: 51 ME: 164 QRS: 46 QRSD: 95 T: 35 QT: 414 QTc: 436 Interpretive Statements SINUS RHYTHM NONSPECIFIC T WAVE ABNORMALITY Electronically Signed On 02-12-2025 17:30:13 EDT by Mustapha Piper EC ECHOCARDIOGRAM 2D M MODE COMPLETE W CONTRAST Result Date: 02/12/2025 Conclusions * Left ventricle is not well visualized. * Left ventricular function is normal with an estimated ejection fraction of 60-65%. * Left ventricular segmental wall motion is grossly normal, however endocardial definition is limited. * The left ventricular diastolic function is indeterminate. * Right ventricle is not well visualized. * Right ventricular systolic function is normal by objective measurements, with a tricuspid annular plane systolic excursion of 2.4 cm and a RV s' of 16.3 cm/s. CT CHEST WO CONTRAST Result Date: 02/12/2025 Essentially resolved right lung opacities, likely an infectious pneumonia. - Note: Radiology results need to be interpreted within a comprehensive clinical context. If you have questions about the radiology report, please contact the office of the ordering clinician. XR CHEST AP PORTABLE Result Date: 02/12/2025 No acute cardiopulmonary process. - Note: Radiology results need to be interpreted within a comprehensive clinical context. If you have questions about the radiology report, please contact the officeof the ordering clinician. Date INR Warfarin Dose Notes 02/11 --- 02/12 3.15 7.5 mg 02/13 2.66 7.5 mg 02/14 3.06 5 mg 02/15 2.88 7.5 mg A/P: Physician orders and progress notes reviewed. INR 1.82 (below goal range today) holding for GI procedure. Primary to notify pharmacy if bridging desired. No recent diarrhea or emesis reported. Will dose warfarin HOLD warfarin and continue to monitor. INR daily. Shazia Rivera, PharmD, BCPS * Liana Rojo MD - 02/17/2025 9:15 AM EDT SEP GI Progress Note HPI: Mona Nettles is a(n)44 y.o. female admitted for work-up and treatment for REYES (dyspnea on exertion) [R06.09]. We are following for anemia. Subjective: INR 1.82 this AM. Patient in bed, no acute complaints. Objective: Current Facility-Administered Medications: acetaminophen (TYLENOL) tablet 650 mg, 650 mg, Oral, Q4H PRN, Benoit Alvarez MD albuterol (PROVENTIL HFA;VENTOLIN HFA) inhaler 2 Puff, 2 Puff, Inhalation, PRN OR albuterol (PROVENTIL) nebulizer solution 2.5 mg, 2.5 mg, Nebulization, PRN, Benoit Alvarez MD amLODIPine (NORVASC) tablet 10 mg, 10 mg, Oral, Daily, Liliana Alvarenga PATCH MACHINE OPERATOR, 10 mg at 02/17/25826 atorvastatin (LIPITOR) tablet 40 mg, 40 mg, Oral, Nightly, [place]ridge, Crystal Marisela, PATCH MACHINE OPERATOR, 40 mg at 02/16/252048 bisacodyL (DULCOLAX) EC tablet 20 mg, 20 mg, Oral, Once, Fernanda Atkins APRN dextromethorphan-guaiFENesin (ROBITUSSIN DM) 10-100 mg/5 mL syrup 10 mL, 10 mL, Oral, Q4H PRN, [place], Crystal Marisela, PATCH MACHINE OPERATOR dextrose 50 % solution 25 mL, 25 mL, Intravenous, PRN, [place]ridge, Crystal Marisela, PATCH MACHINE OPERATOR docusate sodium (COLACE) capsule 100 mg, 100 mg, Oral, BID PRN, [place]ridge, Crystal Marisela, PATCH MACHINE OPERATOR famotidine (PEPCID) tablet 40 mg, 40 mg, Oral, Nightly, [place]ridge, Crystal Marisela, PATCH MACHINE OPERATOR, 40 mg at 02/16/252048 FLUoxetine (PROzac) capsule 60 mg, 60 mg, Oral, Nightly, [place]ridge, Crystal Marisela, PATCH MACHINE OPERATOR, 60 mg at 02/16/252048 folic acid (FOLVITE) tablet 1 mg, 1 mg, Oral, Daily, [place]ridge, Crystal Marisela, PATCH MACHINE OPERATOR, 1 mg at 02/17/25826 glucagon (GLUCAGEN) injection 1 mg, 1 mg, Intramuscular, PRN AND sterile water injection 1 mL, 1 mL, Injection, PRN, [place], Crystal Marisela, PATCH MACHINE OPERATOR 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) - FSBS (Correction Only) Input, 1 Each, MISCELLANEOUS, QID MEALTIME/HS AND insulin aspart U-100 (NovoLOG) injection 0-40 Units, 0-40 Units, Subcutaneous, QID MEALTIME/HS, [place]ridge, Crystal Marisela, PATCH MACHINE OPERATOR, 1 Units at 02/17/25 0828 LEVOthyroxine (SYNTHROID) tablet 75 mcg, 75 mcg, Oral, DAILY EARLY AM, [place], Crystal Marisela, PATCH MACHINE OPERATOR, 75 mcg at 02/17/25 0545 miconazole (MICATIN) 2 % powder, , Topical, BID, Benoit Alvarez MD, Given at 02/17/25 0833 mirabegron (MYRBETRIQ) ER tablet 50 mg, 50 mg, Oral, Daily, Benoit Alvarez MD, 50 mg at 02/17/25 0827 ondansetron (ZOFRAN) tablet 4 mg, 4 mg, Oral, Q4H PRN OR ondansetron (ZOFRAN) injection 4 mg, 4mg, Intravenous, Q4H PRN, [place]ridge, Crystal Marisela, PATCH MACHINE OPERATOR, 4 mg at 02/15/25 1720 oxyCODONE (OxyCONTIN) CR tablet 30 mg, 30 mg, Oral, *Q12H, Benoit Alvarez MD, 30 mg at 02/17/25 0101 polyethylene glycol (GLYCOLAX, MIRALAX) packet 17 g, 17 g, Oral, Daily, Fernanda Atkins B, PATCH MACHINE OPERATOR, 17 g at 02/17/2528 polyethylene glycol (GoLYTELY) suspension 2,000 mL, 2,000 mL, Oral, Once, Lilia Atkinse B, PATCH MACHINE OPERATOR polyethylene glycol (GoLYTELY) suspension 2,000 mL, 2,000 mL, Oral, Once, Lilia Atkinse B, PATCH MACHINE OPERATOR propranoloL (INDERAL) tablet 20 mg, 20 mg, Oral, *Q12H, Benoit Alvarez MD, 20 mg at 02/17/25100 QUEtiapine (SEROquel) tablet 100 mg, 100 mg, Oral, BID, [place], Crystal Marisela, PATCH MACHINE OPERATOR, 100 mg at 02/17/25826 rOPINIRole (REQUIP) tablet 2 mg, 2 mg, Oral, TID, [place], Crystal Marisela, PATCH MACHINE OPERATOR, 2 mg at 02/17/25826 tiZANidine (ZANAFLEX) tablet 8 mg, 8 mg, Oral, Nightly, Benoit Alvarez MD, 8 mg at 02/16/252048 traMADoL (ULTRAM) tablet 50-100 mg, 50-100 mg, Oral, TID PRN, Benoit Alvarez MD, 100 mg at 02/16/252049 I/O last 3 completed shifts: In: - Out: 1000 [Urine:1000] BP 117/49 (BP Location: Right arm, Patient Position: Semi Fowlers) Pulse 72 Temp 98.2 ??F (36.8??C) (Oral) Resp 18 Ht 5' 7 (1.702 m) Wt (!) 528 lb (239.5 kg) LMP 12/15/2024 SpO2 97% BMI 82.70 kg/m?? Physical Exam: CONSTITUTIONAL: No apparent distress, and appears stated age EYES: PERRL, EOMI, no scleral icterus ENT/MOUTH: MMM RESPIRATORY: No increased work of breathing. No cough GI: Non-distended MUSCULOSKELETAL: there is no redness, warmth, or swelling of the joints. Range of motion is normal. SKIN: Normal skin color, texture, turgor. no jaundice. NEUROLOGIC: Patient is awake, alert, and cooperative. Cranial nerves II-XII are grossly intact. No asterixis. PSYCHIATRIC: Normal affect, pleasant mood Results: Lab Results Component Value Date ALT 10 02/17/2025 AST 13 02/17/2025 ALKPHOS 108 02/17/2025 BILIDIR 0.3 05/30/2024 PROT 6.0 (L) 02/17/2025 INR 1.82 (H) 02/17/2025 LIPASE 66 (H) 12/15/2019 Lab Results Component Value Date WBC 6.8 02/14/2025 HGB 8.8 (L) 02/14/2025 HCT 29.4 (L) 02/14/2025 MCV 74.2 (L) 02/14/2025 PLT 236 02/14/2025 Impression: 1. Chronic microcytic anemia ; studies suggestive of SAHRA -ferritin 50 / iron 20 / trans saturation 7% -No previous scopes 2. Shortness of breath/ chest pain; improving -Diuretic adjustments per Cardiology 3. Hx Factor V Leiden, on Coumadin -INR 1.82 -Hx IVC filter 4. Hx lap band Plan: Clear liquids, prep today, NPO at MN EGD/Colonoscopy tomorrow Patient is not currently on Heparin gtt, no objection from GI to this , will defer to PCP; if started, please hold 6hrs prior to endoscopy (02/18 0200) Fernanda Atkins APRN 02/17/2025 9:15 AM I have evaluated and examined the patient along with the Nurse Practitioner and agree with the documentation and plan aside from the changes noted below. Sitting in bedside chair. NG in place. Exam: CONSTITUTIONAL: No apparent distress, and appears stated age HEENT: AT/NC, b/l nares patent +NG in place, MMM, b/l external ears normal RESPIRATORY: No increased work of breathing, no cough GI: Non-distended MUSCULOSKELETAL: There is no redness, warmth, or swelling of the visualized joints. SKIN: Normal skin color, texture, turgor, no jaundice. NEUROLOGIC: No tremors or seizure activity noted. Plan: Agree with plan as above. Will plan for EGD/Colon tomorrow. Liana Rojo MD SEP Gastroenterology 02/17/2025 10:25 PM * Lenard Manzo - 02/16/2025 3:52 PM EDT 02/16/25 1500 Reason for Visit Date of visit 02/16/25 Visited With Patient Visited By [facility] [employer] In[employer] Reason for Visit Sacramental needs Patient Assessment Patient Hindu at Registration Judaism Interventions with Patient Arsh Nova No Care Plan Plan for Follow-Up Primer Inspector(s) will continue to follow throughout admission * Araceli Lagos PTA - 02/16/2025 12:09 PM EDT 02/16/25 1204 PT Subjective Note Type Treatment/Progress Patient Room/Unit 3708 PT Subjective Comments #1 Pt up in recliner by the window. Is agreeable to TE only due to being hooked up to IV Discharge Information This progress note will serve as the discharge summary if no further therapy is provided prior to the patient being discharged from the hospital. Pain Screening PT/OT Patient Currently in Pain Yes Pain Rating Patient unable to rate pain Pain Location Generalized;Back;Buttocks;Leg Pain Orientation Bilateral Pain Intervention(s) Repositioned;Rest Cognition Orientation Intact Command Following Normal Communication Intact Precautions Precaution Info Given Yes;To use call light to request assistance with all mobility Other precautions fall risk, REYES Observation Presentation Patient seated in chair Observation IV;Chair alarm;Telemetry Transfers Additional Comments NT declined Gait Gait Not performed PT/OT Mobility Documentation PT/OT Mobility Score 6 [...] 3 climbing 3-5 steps with a railing? 1 AM PAC: BASIC MOBILITY SCORING AM PAC Moblity Raw Score 16 AM PAC Mobility CMS 0-100% Functional Percentage 47.12 AM PAC Mobility CMS G Code Modifier CK Balance Sitting Balance 3+/5 sits without UE support for 30 seconds or greater Standing Balance Not tested Exercise Exercise Yes Supine Supine Ankle Pumps 20 Supine Quad Sets 20 Supine Glut Sets 20 Supine Heelslides 10 Supine Hip Abduction 10 Seated Seated LAQ's 10 Education Education To use call light to request assistance with all mobility;Role of Therapy;Safety with mobility;Cues for proper technique;Up with assistance only;Precautions;Safe and proper technique with transfers Patient Safety Patient Safety Patient left in chair with needs in reach Assessment Assessment Decreased gait;Decreased functional mobility;Decreased balance;Decreased RightLower Extremity strength;Decreased Left Lower Extremity strength;Decreased activity tolerance ;Decreased safety judgement Progress Progressing toward goals Rationale for Skilled Therapy Fall Risk;Balance Deficits;Not safe with independent transfers;Not safe ambulating independently Plan Treatment/Interventions Continue with current plan of care Recommendation PT Recommendation Low frequency therapy with intensity appropriate for patient need recommended. Time In / Time Out 1139/1204 IP PT Treatment Minutes 24 (TE x 2) The total time spent caring for this patient included but was not limited to medical record review;hands-on treatment;communication and education with patient and/or family/caregiver;clinical judgement necessary for treatment planning for next session;assessment of the patient's progress since the last session * Salazar Snow MD - 02/16/2025 7:47 AM EDT HOSPITALIST PROGRESS NOTE Admit Date: 02/12/2025 LOS: 3 days FOLLOW UP REASON (S): Fluid overload, iron deficiency anemia, history of DVT/PE, IVC filter, factorV Leiden deficiency, AURELIA, hypertension, morbid obesity Subjective: Seen today, no acute issues reported. No fever, chills. 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) - FSBS (Correction Only) Input 1 Each MISCELLANEOUS QID MEALTIME/HS And insulin aspart (NovoLOG) - Correction - Calculator 0-40 Units Subcutaneous QID MEALTIME/HS LEVOthyroxine 75 mcg Oral DAILY EARLY AM miconazole Topical BID mirabegron 50 mg Oral Daily oxyCODONE 30 mg Oral *Q12H propranoloL 20 mg Oral *Q12H QUEtiapine 100 mg Oral BID rOPINIRole 2 mg Oral TID tiZANidine 8 mg Oral Nightly Continuous Infusions: BP 114/50 (BP Location: Right arm, Patient Position: Semi Fowlers) Pulse 63 Temp 97.6 ??F (36.4??C) (Axillary) Resp 18 Ht 5' 7 (1.702 m) Wt (!) 512 lb 5 oz (232.4 kg) LMP 12/15/2024 SpO2 97% BMI 80.24 kg/m?? Patient is in no acute distress, corpulent Clear lungs, on room air RRR Soft, non tender to palpation No legs edema ASSESSMENT AND RECOMMENDATIONS: Dyspnea on exertion secondary to fluid overload and recent pneumonia Resolved Acute diastolic CHF with fluid overload Improved to baseline s/p IV Lasix Diuretics held secondary to recent GRAZYNA Seen by cardiology Echocardiogram reviewed NSVT No recurrence telemetry, currently on propranolol 20 g p.o. BID Iron-deficiency anemia Receiving IV Venofer GI consulted for eventual EGD/colonoscopy, will likely required 2 days of prep Discussed with GI team History of DVT and PE s/p IVC filter Chronic anticoagulation with Coumadin, currently held History of factor V Leiden deficiency History of superficial vein thrombosis 12/2024 INR this a.m. is 2.4 Continue to hold Coumadin Mild acute kidney injury Resolved Elevated troponin without evidence of ACS Nonischemic myocardial infarction No PE on CTA pulmonary as well as no coronary calcification noted Chronic pain syndrome Continue current dose of care. Restless leg syndrome Requip 2 mg TID Essential hypertension on amlodipine History of AURELIA CPAP Acquired hypothyroidism Continue levothyroxine History of morbid obesity Discussed with patient and GI MATTRESS AND BOXSPRINGS SUPERVISOR/PATCH MACHINE OPERATOR Discussed with zinc furnace chargerYENNY Snow MD * Salazar Snow MD - 02/15/2025 12:27 PM EDT HOSPITALIST PROGRESS NOTE Admit Date: 02/12/2025 LOS: 2 days FOLLOW UP REASON (S): Fluid overload, iron deficiency anemia, history of DVT PE, IVC filter, FVL, AURELIA, HTN Subjective: Seen today, no acute issues, no fever, chills, no nausea. 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C) (Oral) Resp 18 Ht 5' 7 (1.702 m) Wt (!) 512 lb 6.4 oz (232.4 kg) LMP 12/15/2024 SpO2 99% BMI 80.25 kg/m?? Patient is in no acute distress, in chair Clear lungs, on room air RRR Soft, non tender to palpations ASSESSMENT AND RECOMMENDATIONS: Fluid overload improved s/p IV Lasix Elevated proBNP Echocardiogram with preserved EF Seen by cardiology NSVT Continue with telemetry On propanolol 20 mg po BID SAHRA- Overall stable Seen by GI, plan for eventual scope IV iron for now Waiting for INR to fall below 2 Discussed with GI team History of DVT/PE Hx of superficial thrombosis 12/2014 IVC filter Chronic AC History of factor Leiden deficiency IV heparin when INR < 2 Hold Coumadin for now Pharmacy following Mild acute kidney injury Form overdiuresis Diuretic on hold Elevated troponin No ACS Nonischemic myocardial infarction No PE on CTA pulmonary No coronary calcification Recent right lung pneumonia Chronic pain syndrome on chronic opioid Essential hypertension On amlodipine Restless leg syndrome On ropinirole 2 mg TID AURELIA CPAP History of diabetes type 2 Acquired hypothyroidism Hypoalbuminemia History of morbid obesity Discussed with patient Salazar Snow MD * Lucia Moon, PT - 02/15/2025 12:05 PM EDT 02/15/25 1205 PT Subjective Note Type Treatment/Progress Patient Room/Unit 3708 PT Subjective Comments #1 Pt agreed to work with therapy. Pt reported standing is difficult for her. Pt requested a neck pillow. Discharge Information This progress note will serve as the discharge summary if no further therapy is provided prior to the patient being discharged from the hospital. Pain Screening PT/OT Patient Currently in Pain Yes Pain Rating Patient unable to rate pain Pain Location Back;Leg;Generalized;Neck Pain Orientation Bilateral Pain Intervention(s) Repositioned;Rest;Distraction Additional Comments Pt reported chronic pain issues which limit her activity tolerance. Cognition Orientation Intact Arousal Normal Safety Awareness Normal Affect/Ability to cope Normal Command Following Normal Memory Intact Communication Intact Precautions Therapy Precautions Yes Precaution Info Given Yes;To use call light to request assistance with all mobility Other precautions fall risk, REYES Observation Presentation Patient seated in chair Observation IV;Telemetry Vitals room air O2 sats 100% post-ambulation. Pt c/o SOB with ambulation. Recovered with seated pursed lip breathing. Additional Comments PT worked with OT to construct neck roll from towel roll and pillow cases for pt to use. Pt reported increased sitting comfort with neck roll. Bed Mobility Additional Comments not tested: pt in chair when PT arrived to room. Pt reported she's trying to avoid being in the bed too much while she is in the hospital because she doesn't have a chair at home and has to spend most of her time in bed. Transfers Sit to Stand Contact guard assist;With verbal cues Stand to Sit Contact guard assistance;With verbal cues Stand Pivot Transfers Contact guard assist Additional Comments with bariatric front-wheeled walker. Gait Gait Contact guard assist;With verbal cues Gait Distance (Feet) 28 Feet Assistive Device Bariatric;2 Wheel walker Pattern Slow olimpia;Wide base of support Weight Bearing Status Weight bearing as tolerated Additional Comments Pt reported generalized as well as LE fatigue with ambulation of 28'. Pt stated my legs are burning . Pt recovered with seated rest. Functional Status Score (FSS-ICU) Is the patient [...] 3 climbing 3-5 steps with a railing? 1 AM PAC: BASIC MOBILITY SCORING AM PAC Moblity Raw Score 16 AM PAC Mobility CMS 0-100% Functional Percentage 47.12 AM PAC Mobility CMS G Code Modifier CK Balance Sitting Balance 3+/5 sits without UE support for 30 seconds or greater;2/5 supports self independently with both UEs Standing Balance 2/5 indep, requires both UE support Additional comments Static standing with bariatric front-wheeled walker x 1 min: verbal cues for posture. Exercise Additional Comments Pursed lip breathing: instructed pt to perform pursed lip breathing x 10 reps, every hour when awake. Education Education To use call light to request assistance with all mobility;Patient/Family Education;Role of Therapy;Safety with mobility;Cues for proper technique;Up with assistance only;Discharge planning;Precautions;Safe and proper posture/positioning Additional Comments Educated pt re: proper posture. Educated pt re: increasing activity level as she tolerates and avoiding prolonged periods of inactivity. Educated pt re: walker height for pt's height (pt reported she suspects her home walker is too high for her.) Patient Safety Patient Safety Patient left in chair with needs in reach Assessment Assessment Decreased activity tolerance ;Decreased endurance Prognosis Good;With continued PT s/p acute discharge Progress Progressing toward goals Rationale for Skilled Therapy Fall Risk;Balance Deficits;Not safe with independent transfers;Not safe ambulating independently;Able to make measurable improvements;Decreased endurance and tolerance to activity Plan Treatment/Interventions Continue with current plan of care Recommendation PT Recommendation Low frequency therapy with intensity appropriate for patient need recommended. Time In / Time Out 1117/1205 IP PT Treatment Minutes 48 (Gait, TA, Ther ex) The total time spent caring for this patient included but was not limited to medical record review;hands-on treatment;communication and education with patient and/or family/caregiver;assessment of the patient's progress since the last session;clinical judgement necessary for treatment planning for next session * Swapna Paul - 02/15/2025 12:01 PM EDT Images from the original note were not included. \ 02/15/25 1200 Reason for Visit Date of visit 02/15/25 Visited With Patient Visited By Primer Inspector Reason for Visit Spiritual, emotional or social support Patient Assessment Patient Appears Sad;Overwhelmed Patient Hindu at Registration Judaism Patient Hindu Upon Assessment Judaism Spiritual Strengths and Coping Resources Acceptance of changes or limitations in health;Meaningful relationship or connection with God;Realistic sense of self;Resilience or adaptability Patient Spiritual Wellbeing Appears to be coping adequately Interventions with Patient Relationship Building Interventions Cultivated a relationship of care and support;Listened empathetically Pentecostalism Interventions Prayer with patient or family Exploration Interventions Provided caring and supportive presence;Provided safe space to process emotions or concerns Empowerment Interventions Affirmed patient's experience Outcomes Expressed Outcomes Appreciative of prayer/ritual;Appreciative of visit Care Plan Plan for Follow-Up Primer Inspector(s) remains available as needed Rev. Dr. Swapna Giraldo D.Min Primer Inspector, Pastoral and Spiritual Care For non-urgent requests, please place a Pastoral Care consult in [facility]. For all urgent matters, please send an urgent [facility] Secure Chat to the Pastoral Care group at your location. Between 11pm and 7am, please use On-Call Finder to send an [facility] Secure Chat to the on-call butter fat tester. Pastoral Care office phone numbers: EDG/COV/GRT [phone], MANNY [phone], FTT [phone], DBN [phone] * Halle Boyer RPH - 02/15/2025 11:28 AM EDT Pharmacy Consult: Warfarin HPI: Mona Nettles is a 44 y.o. female admitted 02/12 for increased dyspnea. Inpatient diagnosis included possible CHF exacerbation, pneumonia, HTN, DM, iron deficiency anemia. Recent hospitalization (01/13-01/20) for PNA and abdominal wall cellulitis, followed by transfer to [facility] rehab (01/20-01/26). Allergies: Patient has no known allergies Indication for warfarin: Heterozygous FVL, hx DVT/PE, s/p IVC filter. INR Goal: 2.0 to 3.0 Warfarin therapy prior to admit: 7.5 mg daily. Warfarin managed outpatient by: outpatient physician's office - Dr. Ohara ([facility] [place]) - patient has home monitor. Vitals (last 24 hr): BP Min: 113/42 Max: 162/76 BP MAP (mmHg) Av.6 Min: 60 Max: 103 Pulse Av.2 Min: 62 Max: 78 Resp Av.9 Min: 16 Max: 20 Temp Av.6 ??F (36.4 ??C) Min: 97.3 ??F (36.3 ??C) Max: 97.9 ??F (36.6 ??C) SpO2 Av.4 % Min: 96 % Max: 100 % Weight: (!) 512 lb 6.4 oz (232.4 kg) (02/13/25 1016) BMI (Calculated): 82.5 (02/12/25 0509) Labs: Recent Labs 02/12/25 0221 02/13/25 0624 02/14/25 0654 02/15/25 0727 INR 3.15* 2.66* 3.06* 2.88* Recent Labs 02/12/25 0935 02/13/25 0624 02/14/25 0654 HGB 9.5* 8.6* 8.8* PLT 278 231 236 Recent Labs 02/13/25 0624 02/14/25 0654 02/15/25 0725 AST 15 13 17 ALT 10 11 12 Date INR Warfarin Dose Notes 02/11 --- 8/9 3.15 7.5 mg 02/13 2.66 7.5 mg 02/14 3.06 5 mg 02/15 2.88 7.5 mg A/P: Physician orders and progress notes reviewed. Plans for discharge to facility today. INR is therapeutic today; stable INR. Drug interactions: no new. Constipated, per documentation. Hgb stable, low. Anemia. Iron infusions. Plt stable S/Sx bleeding: none noted. Will dose warfarin 7.5 mg today. If discharged today. Suggest pt resume TURF MANAGER warfarin dose of 7.5 mg daily and follow up with provider outpatient within 1 week for INR close monitoring. INR daily. Halle Dunn Pharm.D. 02/15/2025 11:16 AM Spoke with Provider. Will hold warfarin for GI procedure. No orders to bridge heparin at this time; however, if prolonged warfarin hold required, bridge may be warranted secondary to patient recurrent thromboembolic event history and heterozygous FVL diagnosis. Pharmacy will sign off and primary to re-consult pharmacy if heparin bridge needed. ThanksHalle Pharm.D. 02/15/2025 4:06 PM * Bernie Phillip, OT - 02/15/2025 11:19 AM EDT 02/15/25 1119 OT Subjective Note Type Evaluation Patient Room/Unit 3708 OT Subjective Comments #1 Pt reports that her family wants her to move to assisted living. Discharge Information Evaluation to serve as discharge summary if no further treatment provided before the facility discharge Admitting Diagnosis REYES. Pt admitted on 02-12 via ED with SOB. Pt diagnosed with CHF. Past Med Hx Pt has a past [...] THAN FIVE YEARS (12/15/2019); Umbilical hernia repair (2008);and INTERVENTIONAL RADIOLOGY INFERIOR VENA CAVA FILTER PLACEMENT. Diagnostic Testing CXR: No acute cardiopulmonary process. Chest CT: Essentially resolved right lungopacities, likely an infectious pneumonia. Echo: * Left ventricle is not well visualized. * Left ventricular function is normal with an estimated ejection fraction of 60-65%. * Left ventricular segmental wall motion is grossly normal, however endocardial definition is limited. * The left ventricular diastolic function is indeterminate. * Right ventricle is not well visualized. * Right ventricular systolic function is normal by objective measurements, with a tricuspid annular plane systolic excursion of 2.4 cm and a RV s' of 16.3 cm/s. Precautions Therapy Precautions Yes Precaution Info Given Yes;To use call light to request assistance with all mobility Home Living/Prior Function Type of Home House Home Layout One level;Ramped entrance Number of Steps 1 Additional Comments 1 step at laundry room. Ramp to enter home is very steep and is difficult for pt to navigate. Home Equipment 2 wheeled walker;Wheelchair-manual;Bedside commode;Scooter;Power wheelchair;Shower chair Level of Assistance Needs assistance with [...] Command Following Normal Memory Intact Communication Intact Additional comments Pt expresses frustrations with her situation and some support was provided, donte discussed pt's management of her situation. She spends most of her day sleeping at home, and does not follow up on exercises or activities to help her maintain/improve her functioning.Her socialsituation is a continued struggle and she has similar complaints each admission. Pain Screening PT/OT Patient Currently in Pain Yes Pain Rating Patient unable to rate pain Pain Location Back;Leg Pain Orientation Bilateral Pain Intervention(s) Repositioned Observation Presentation Patient seated in chair Observation Telemetry Vitals VSS on RA UE Assessment LUE Assessment X LUE Additional Comments Pt has decreased activity tolerance for UE tasks. RUE Assessment X RUE Additional Comments Pt has decreased activity tolerance for UE tasks. Hand Function Gross Grasp Functional Coordination Functional ADL Interventions Where Assessed Chair Feeding Assistance Independent Grooming Assistance Stand by UE Bathing Assistance Minimal LE Bathing Assistance Moderate UE Dressing Assistance Stand by LE Dressing Assistance Maximal Toileting Total Additional Comments Multiple attempts have been made to have pt help with her toileting without success in the past. Transfers Sit to Stand Contact guard assist Stand to Sit Contact guard assistance Additional Comments Amb with bariatric walker in room with CGA. Interventions Balance Training Pt tolerated standing for 1 minute AM PAC: How much help from another [...] Functional Percentage 53.32 AM PAC Daily Activity [facility] G Code Modifier CK Education Education To use call light to request assistance with all mobility;Patient/Family Education;Role of Therapy;Safety with mobility;Cues for proper technique;Discharge planning;Up with assistance only;Precautions Patient Safety Patient left in chair with needs in reach Assessment Assessment Decreased ADL status;Decreased UE strength;Decreased Safe judgement during ADL;Decreasedendurance;Decreased self-care transfers;Decreased high-level ADLs Prognosis Fair;Guarded Rationale for Skilled Therapy Fall Risk;Balance Deficits;Needs verbal/tactile cues for ADL's;Needs physical cues for ADL's Goals Patient and/or Family Goal Pt wants help with toileting Goals Yes Goal Formulation With Patient Time for Goal Achievement/Duration of Treatment 1-2 weeks ADL Goals Pt Will Perform All ADL's Minimal assistance Functional Transfer Goals Pt Will Perform All Functional Transfers Supervision Arm Goals Pt will complete HEP Independently Pt Will Complete Theraband Exer B UE;15 reps;With good activity tolerance;Without complain/sign of pain;Level 3 Theraband Additional Goals Perform simple homemaking tasks Mod Independent Additional Goals Pt will tolerate standing for 2 minutes for ADLs Plan Treatment Interventions ADL retraining;Instrumental ADL retraining;Functional transfer training;Endurance training;UE strengthening/ROM;Patient/Family training;Neuro muscular reeducation;Equipment eval/education;Compensatory technique education OT Frequency 2-5x/wk Recommendation OT Recommendation Low frequency therapy with intensity appropriate for patient need recommended. Time In / Time Out 7017-3007 IP OT Evaluation Minutes 8 IP OT Individual Treatment Minutes 38 The total time spent caring for this patient included but was not limited to medical record review;hands-on treatment;communication and education with patient and/or family/caregiver;assessment of the patient's progress since the last session;clinical judgement necessary for treatment planning for next session;communication with nursing and/or care coordination/social work regarding patient status and discharge planning * Cee Richey RN - 02/14/2025 3:06 PM EDT Met with pt to discuss HF diagnosis, treatment plan and measures to take to manage HF at home. Pt tearful initially when I met her due to hospital menu options and her dislike for our food. We talkedabout her food aversions and intolerances since her lap band 18 yrs ago. She tells me she has a newdiagnosis of HF and was scared when she first heard this yesterday but feels better now. We discussed importance of DM diet and low na diet. She said she cannot eat healthy foods due to cost. Reviewed 2L fluid restriction which she states she drinks 2L a day. Drinks regular coke, sprite and water. She cannot weigh self so we discussed s/sx of HF. She did state that her pannus was much harder and h eavier the past 2 weeks but is much softer and easier to lift up now. She will see her doctor every2 months for pain medications but cannot go sooner due to transportation issues. Her cell service is very limited too due to her location in [facility]. States med compliance. We talked about her cpap non compliance. She does not clean her cpap and does not know how she would be able to clean it. She states she gets mailed a new mask and tubing about every 2-4 weeks but needs to clean reservoir. She is aware that cpap compliance would also help HF. HF material provided for pt to review. * Peggy Baker RN - 02/14/2025 1:51 PM EDT 02/14/2025 CC Initial: CC met with patient in room. Pt agreeable to SNF, states she has been to [facility] in the past, and would like to return there. Pt stated she has financial difficulties, nonspecific. Pt stated she only has steps outside and then lives on one floor, endorsed safety at home. Pt states she is unable to complete any ADLs on her own, requiring her 20 year old daughter to help her. Per patient, daughter struggles with this as she has anxiety and I think she's autistic and it's too much for her . Pt endorsed the following DME: 2 wheeled walker, electric wheelchair, manual wheelchair, shower chair and bedside commode. History of anxiety and depression, on meds. PCP and pharmacy verified. Pt stated she would find a ride when discharged, stating she has stopped driving due toher truck having broken down 3 years ago, and not knowing if she would currently fit inside the vehicle. Pt identified her sister Elizabeth and daughter Chandra as supportive. CC following. * Benoit Alvarez MD - 02/14/2025 1:46 PM EDTAssociated Problem(s): REYES (dyspnea on exertion) - Initially thought to be pneumonia is more than likely heart failure; patient diuresed very aggressively on Lasix. Still with elevated renal function. Also found to have iron deficiency anemia. Echo reassuring per report Labs reviewed with slight bump in creatinine. Holding further diuretic; await further guidance fromcardiology. If no better soon, would consult with nephrology. Restart home medications as reconciled and as appropriate. Cardiology consulted; noted plan for diuresis and eventual ischemic evaluation initially. Now notedplan to hold off on ischemic evaluation. Further plan pending renal function. Awaiting attending input. Plan for iron deficiency anemia as below. * Benoit Alvarez MD - 02/14/2025 1:46 PM EDTAssociated Problem(s): Factor V Leiden - INR to be followed. Appreciate pharmacy assistance Labs reviewed Restart home medications as reconciled and as appropriate. Pharmacy to assist with Coumadin per facility protocol * Benoit Alvarez MD - 02/14/2025 1:46 PM EDTAssociated Problem(s): Hypothyroidism - Most recent TSH within normal limits per report Restart home medications as reconciled and as appropriate. * Benoit Alvarez MD - 02/14/2025 1:46 PM EDTAssociated Problem(s): AURELIA (obstructive sleep apnea) - Reports being noncompliant with her CPAP therapy unfortunately. No acute issues reported. Social work to assist with getting patient new parts for her machine. Await further guidance Continue NIV based on home regimen while here. * Benoit Alvarez MD - 02/14/2025 1:46 PM EDTAssociated Problem(s): Hypertension - Pressures were elevated likely from being fluid overloaded. Pressures are intermittently elevated. Restart home medications as reconciled and as appropriate. Cardiology following. * Benoit Alvarez MD - 02/14/2025 1:46 PM EDTAssociated Problem(s): Type 2 diabetes mellitus, without long-term current use of insulin (HCC) - Updated A1c was 7.6. Sugars are acceptable on last check Hold oral home diabetic medications. Start sliding scale insulin. Monitor sugars, and titrate insulin to inpatient goal of 140-180. Insulin is a high risk medication. * Benoit Alvarez MD - 02/14/2025 1:46 PM EDTAssociated Problem(s): Anxiety - No acute issues reported Restart home medications as reconciled and as appropriate. * Benoit Alvarez MD - 02/14/2025 1:46 PM EDTAssociated Problem(s): Stage 3 acute kidney injury - Renal function with bump likely from overdiuresis; persistent Restart home medications as reconciled and as appropriate. Monitor closely; may need nephrology input soon. Potassium replacement ordered previously * Benoit Alvarez MD - 02/14/2025 1:46 PM EDTAssociated Problem(s): Presence of IVC filter - No acute issues reported Management of filter per placing physician * Benoit Alvarez MD - 02/14/2025 1:46 PM EDTAssociated Problem(s): Mood disorder - No acute issues reported Restart home medications as reconciled and as appropriate. * Benoit Alvarez MD - 02/14/2025 1:46 PM EDTAssociated Problem(s): Type 2 diabetes mellitus with diabetic polyneuropathy, without long-term current use of insulin (HCC) - No acute issues reported Restart home medications as reconciled and as appropriate. * Benoit Alvarez MD - 02/14/2025 1:46 PM EDTAssociated Problem(s): Chronic pain syndrome - Complicates all aspects of care Restart home medications as reconciled and as appropriate. Pharmacy consulted to assist with reconciling her narcotic regimen * Benoit Alvarez MD - 02/14/2025 1:46 PM EDTAssociated Problem(s): Chest pressure - Reported on admission Labs followed closely Echo reassuring as above Restart home medications as reconciled and as appropriate. Cardiology consult with plan as above. Await further guidance * Benoit Alvarez MD - 02/14/2025 1:46 PM EDTAssociated Problem(s): Acute congestive heart failure (HCC) - Reported on admission Labs followed closely Echo reassuring as above Restart home medications as reconciled and as appropriate. Cardiology consult with plan as above. Await further guidance * Benoit Alvarez MD - 02/14/2025 1:46 PM EDTAssociated Problem(s): Demand ischemia (HCC) - Reported on admission Labs followed closely Echo reassuring as above Restart home medications as reconciled and as appropriate. Cardiology consult with plan as above. Await further guidance * Benoit Alvarez MD - 02/14/2025 1:46 PM EDTAssociated Problem(s): Chest pain - Reported on admission Labs followed closely Echo reassuring as above Restart home medications as reconciled and as appropriate. Cardiology consult with plan as above. Await further guidance * Benoit Alvarez MD - 02/14/2025 1:46 PM EDTAssociated Problem(s): Iron deficiency anemia - Noted today on labs Start iron replacement IV GI consulted for iron deficiency workup. There is no evidence of endoscopy in our system. * Benoit Alvarez MD - 02/14/2025 1:19 PM EDT Images from the original note were not included. PROGRESS NOTE CC: Follow-up for shortness of breath thought to be fluid overload related. She aggressively diuresed and had worsening renal function. Cardiology assisting. Awaiting improvement in renal function. Also noted to have iron deficiency anemia today. GI consulted for this. Handoff Completed:Yes/No: Yes Disposition Perspective - Medically ready for discharge: No Anticipated ready for discharge timeframe?: see above Estimated Date of Discharge: 02/16/2025 Assessment/Plan: Assessment & Plan REYES (dyspnea on exertion) - Initially thought to be pneumonia is more than likely heart failure; patient diuresed very aggressively on Lasix. Still with elevated renal function. Also found to have iron deficiency anemia. Echo reassuring per report Labs reviewed with slight bump in creatinine. Holding further diuretic; await further guidance fromcardiology. If no better soon, would consult with nephrology. Restart home medications as reconciled and as appropriate. Cardiology consulted; noted plan for diuresis and eventual ischemic evaluation initially. Now notedplan to hold off on ischemic evaluation. Further plan pending renal function. Awaiting attending input. Plan for iron deficiency anemia as below. Factor V Leiden - INR to be followed. Appreciate pharmacy assistance Labs reviewed Restart home medications as reconciled and as appropriate. Pharmacy to assist with Coumadin per facility protocol Iron deficiency anemia - Noted today on labs Start iron replacement IV GI consulted for iron deficiency workup. There is no evidence of endoscopy in our system. Hypothyroidism - Most recent TSH within normal limits per report Restart home medications as reconciled and as appropriate. AURELIA (obstructive sleep apnea) - Reports being noncompliant with her CPAP therapy unfortunately. No acute issues reported. Social work to assist with getting patient new parts for her machine. Await further guidance Continue NIV based on home regimen while here. Hypertension - Pressures were elevated likely from being fluid overloaded. Pressures are intermittently elevated. Restart home medications as reconciled and as appropriate. Cardiology following. Type 2 diabetes mellitus, without long-term current use of insulin ([facility]) - Updated A1c was 7.6. Sugars are acceptable on last check Hold oral home diabetic medications. Start sliding scale insulin. Monitor sugars, and titrate insulin to inpatient goal of 140-180. Insulin is a high risk medication. Anxiety - No acute issues reported Restart home medications as reconciled and as appropriate. Stage 3 acute kidney injury - Renal function with bump likely from overdiuresis; persistent Restart home medications as reconciled and as appropriate. Monitor closely; may need nephrology input soon. Potassium replacement ordered previously Presence of IVC filter - No acute issues reported Management of filter per placing physician Mood disorder - No acute issues reported Restart home medications as reconciled and as appropriate. Type 2 diabetes mellitus with diabetic polyneuropathy, without long-term current use of insulin (HCC) - No acute issues reported Restart home medications as reconciled and as appropriate. Chronic pain syndrome - Complicates all aspects of care Restart home medications as reconciled and as appropriate. Pharmacy consulted to assist with reconciling her narcotic regimen Chest pressure Acute congestive heart failure (HCC) Demand ischemia (HCC) Chest pain - Reported on admission Labs followed closely Echo reassuring as above Restart home medications as reconciled and as appropriate. Cardiology consult with plan as above. Await further guidance Dispo: Inpatient pending GI evaluation for iron deficiency anemia. Also awaiting further guidance from wash tank tender. PT recommending placement. Start disposition planning. Elevation in renal function is another barrier to discharge. 55 minutes spent on this encounter. VTE Prophylaxis: Anti-Embolism Intervention: Refused Qualifying Pharmacologic Prophylaxis warfarin (COUMADIN) tablet 5 mg ONCE WARFARIN WARFARIN - PHARMACY-MANAGED THERAPY Daily Active Hospital Problems Diagnosis *REYES (dyspnea on exertion) Chest pressure Acute congestive heart failure (HCC) Demand ischemia (HCC) Chest pain Type 2 diabetes mellitus with diabetic polyneuropathy, without long-term current use of insulin (HCC) Chronic pain syndrome Mood disorder Stage 3 acute kidney injury Presence of IVC filter Factor V Leiden Type 2 diabetes mellitus, without long-term current use of insulin (HCC) AURELIA (obstructive sleep apnea) Hypothyroidism Hypertension Anxiety Subjective: SABRINA reported ON. Pt denies f/c/n/v/cp/sob Extensive discussion had with patient/family regarding the plan of care. Questions answered to the best of my ability. Objective: BP (!) 162/76 (BP Location: Right arm, Patient Position: Sitting) Comment: propanolol given Pulse72 Temp 97.7 ??F (36.5 ??C) (Oral) Resp 16 Ht 5' 7 (1.702 m) Wt (!) 512 lb 6.4 oz (232.4 kg) LMP 12/15/2024 SpO2 99% BMI 80.25 kg/m?? I/O last 3 completed shifts: In: 1200 [P.O.:1200] Out: 2200 [Urine:2200] Weight: (!) 512 lb 6.4 oz (232.4 kg) Constitutional: Alert and in no distress. In bed. Morbidly obese Cardiovascular: Regular rate and regular rhythm. Exam reveals no friction rub. No murmur heard. Pulmonary/Chest: DENNIS. Effort normal and breath sounds less coarse. No respiratory distress. There are no wheezes. Abdominal: Soft. Bowel sounds are quiet. No distension. There is no tenderness. There is no reboundand no guarding. Musculoskeletal: extremities atraumatic. Neurological: speech normal. Moves all extremities. Skin: Skin is warm and dry. Labs: Laboratory data and diagnostic testing reviewed 02/14/25. Benoit Alvarez MD 02/14/2025 1:19 PM * Cooper Wood MD - 02/14/2025 12:03 PM EDT Heart & Vascular Progress Note PATIENT: [facility] Cardiology following for: REYES Subjective: HPI/Interval History Sitting in chair. Reports she is short of breath again today Objective: Vitals: 02/14/25 0605 02/14/25 0752 02/14/25 1119 02/14/25 1140 BP: 132/77 139/70 (!) 162/76 BP Location: Left arm Left arm Right arm Patient Position: Semi Fowlers Semi Fowlers Sitting Pulse: 68 65 65 72 Resp: 18 16 16 Temp: 97.5 ??F (36.4 ??C) 97.2 ??F (36.2 ??C) 97.7 ??F (36.5 ??C) TempSrc: Oral Oral Oral SpO2: 96% 98% 99% Weight: Height: I/O 24 hours: Intake/Output Summary (Last 24 hours) at 02/14/2025 1204 Last data filed at 02/14/2025 0205 Gross per 24 hour Intake 600 ml Output 2200 ml Net -1600 ml Physical Exam: Physical Exam Constitutional: Appearance: She is obese. She is ill-appearing. Cardiovascular: Rate and Rhythm: Normal rate and regular rhythm. Pulses: Normal pulses. Pulmonary: Effort: Pulmonary effort is normal. Musculoskeletal: Right lower leg: Edema present. Left lower leg: Edema present. Skin: General: Skin is warm and dry. Capillary Refill: Capillary refill takes less than 2 seconds. Neurological: General: No focal deficit present. Mental Status: She is alert. Psychiatric: Mood and Affect: Mood normal. 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) - FSBS (Correction Only) Input 1 Each MISCELLANEOUS QID MEALTIME/HS And insulin aspart (NovoLOG) - Correction - Calculator 0-40 Units Subcutaneous QID MEALTIME/HS LEVOthyroxine 75 mcg Oral DAILY EARLY AM miconazole Topical BID mirabegron 50 mg Oral Daily oxyCODONE 30 mg Oral *Q12H propranoloL 20 mg Oral *Q12H QUEtiapine 100 mg Oral BID rOPINIRole 2 mg Oral TID tiZANidine 8 mg Oral Nightly warfarin 5 mg Oral Once WARF warfarin - pharmacy-managed therapy MISCELLANEOUS Daily Labs & Studies: All pertinent labs & radiologic studies for the past 24 hours have been reviewed Telemetry: SR Assessment: Chest Pain Dyspnea on Exertion - likely multifactorial with recent pneumonia, obesity, possible CHF -trops flat and declining not in pattern with ACS , 27 -EKG SR without acute ischemia noted -ECHO (02/12/2025) LVEF 60-65% Acute HF? -CT essentially resolved right lung opacities -BNP 2037 -ECHO (02/12/2025) LVEF 60-65% -s/p IV lasix - transition to torsemide when renal function stable HTN -Current medications amlodipine 5 mg, propranolol 20 mg BID -uncontrolled - increase amlodipine to 10 mg DM2 -per primary -A1c 7.6 Obesity -BMI 80 Plan: Holding diuresis with renal function - plan to start torsemide when renal function improved Increase amlodipine to 10 mg No plans for ischemic evaluation at this time Further input from Dr Wood. Liliana Alvarenga APRN, Heart and Vascular 02/14/2025 Disposition Perspective - Medically Ready for Discharge: No Anticipated Discharge: tomorrow Discharge when / if: pending symptoms Seen in follow up CP --Trop pattern not ACS --Normal EF --PNA Mobid obesity Fatty liver DM2 HTN AURELIA Dyslipidemia Chronic lymphedema FVL --Hx PE --coumadin Net 7.4 L out Chronically ill appearing RRR No WRR Abd obese benign Bilat LE edema Tele NSR Echo 02/28 Result Text IMPRESSION Conclusions * Left ventricle is not well visualized. * Left ventricular function is normal with an estimated ejection fraction of 60-65%. * Left ventricular segmental wall motion is grossly normal, however endocardial definition is limited. * The left ventricular diastolic function is indeterminate. * Right ventricle is not well visualized. * Right ventricular systolic function is normal by objective measurements, with a tricuspid annular plane systolic excursion of 2.4 cm and a RV s' of 16.3 cm/s. Consider stress test as OP if sx persist No new cardiac recs Will see again for any new concerns ATTENDING PHYSICIAN ATTESTATION: The patient was seen in collaboration with MAURI. I have reviewed all pertinent history, laboratory and radiology studies. I have taken a history and performed a physical examination of this patient. I agree with the history, physical, assessment and plan as outlined by CARMELITA. Cooper Wood MD [facility] * Lenard Manzo - 02/14/2025 11:36 AM EDT 02/14/25 1135 Reason for Visit Date of visit 02/13/25 Visited With Patient Visited By [facility] [employer] In[employer] Reason for Visit Sacramental needs Patient Assessment Patient Hindu at Registration Judaism Interventions with Patient Pentecostalism Interventions Prayer with patient or family Outcomes Expressed Outcomes Appreciative of prayer/ritual Care Plan Plan for Follow-Up Primer Inspector(s) will continue to follow throughout admission * Lenard Manzo - 02/14/2025 11:29 AM EDT 02/14/25 1100 Reason for Visit Date of visit 02/12/25 Visited With Patient Visited By [facility] [employer] In[employer] Reason for Visit Sacramental needs Patient Assessment Patient Hindu at Registration Judaism Interventions with Patient Holy Communion No Care Plan Plan for Follow-Up Primer Inspector(s) will continue to follow throughout admission * Marge Desai, PT - 02/14/2025 11:12 AM EDT 02/14/25 1119 PT Subjective Note Type Treatment/Progress Patient Room/Unit 3708 PT Subjective Comments #1 Patient resting in bed. Expressed concerns regarding affordability of healthy food once she is discharged as she eats a lot of frozen meals at home. Cola is my weakness. I limit myself to three a day. Reported her SOB and chest tightness is worse today. Notified RN. Discharge Information This progress note will serve as the discharge summary if no further therapy is provided prior to the patient being discharged from the hospital. Admitting Diagnosis REYES Clinical Course Patient presented to ER on 02/12 with complaints of SOB, reports worsening SOB over last week, feels like she struggles to breathe with any minor activity and cannot move, +chest pressure, has used her inhaler without relief, CXR shows no acute cardiopulmonary process, troponin and BNP elevated, EKG shows sinus rhythm with rate of 66 bpm, repeat troponin down trending, CT ordered tofurther evaluate dyspnea shows essentially resolved R lung opacities, likely an infectious pneumonia, admitted for further care of REYES and chest pressure Pain Screening PT/OT Patient Currently in Pain Yes Pain Rating Patient unable to rate pain Pain Location Back;Leg Pain Orientation Lower;Bilateral Pain Intervention(s) Repositioned;Ambulation/Increased activity Cognition Orientation Intact Arousal Normal Safety Awareness Normal Affect/Ability to cope Normal Command Following Normal Memory Intact Communication Intact Precautions Therapy Precautions Yes Precaution Info Given To use call light to request assistance with all mobility Observation Presentation Patient resting in bed Observation IV;Telemetry Vitals VSS Bed Mobility Supine to Sit Supervision Transfers Sit to Stand Contact guard assist;Walker Stand to Sit Contact guard assistance;Walker Bed to/from chair Contact guard assist;Walker Additional Comments with bariatric walker. + void of urine. Unable to wipe herself. Stated she cannot reach. Had previously mentioned getting a bidet for home but stated she cannot afford one at thistime. Unable to don her socks. Does not wear socks at home. I hate socks. Gait Gait Contact guard assist Gait Distance (Feet) 20 Feet Assistive Device 2 Wheel walker;Bariatric Pattern Slow olimpia;Wide base of support Additional Comments Fatigues quickly. Vitals REYES. VSS Functional Status Score (FSS-ICU) Is the patient [...] 3 climbing 3-5 steps with a railing? 1 AM PAC: BASIC MOBILITY SCORING AM PAC Moblity Raw Score 16 AM PAC Mobility CMS 0-100% Functional Percentage 47.12 AM PAC Mobility CMS G Code Modifier CK Balance Sitting Balance 3+/5 sits without UE support for 30 seconds or greater Standing Balance 2/5 indep, requires both UE support Education Education To use call light to request assistance with all mobility;Patient/Family Education;Cues for proper technique;Role of Therapy;Safety with mobility;Discharge planning;Up with assistance only;Safe and proper technique with transfers;Safe and proper technique with gait pattern;Educated on benefits of mobility, upright positioning, and getting out of bed Additional Comments Asked RN if someone could provide education regarding new CHF diet and diet modifications. Patient Safety Patient Safety Patient left in chair with needs in reach;Nursing notified of status (Left chair by the window. Chair alarm not activated. Patient with call light within reach. Pt stated they keep the chair by the window so RN can get her computer into the room.) Assessment Assessment Decreased functional mobility;Decreased gait;Decreased balance;Decreased RightLower Extremity strength;Decreased Left Lower Extremity strength;Decreased activity tolerance ;Decreased endurance Prognosis Good;With continued PT s/p acute discharge Progress Slow progress toward goals Rationale for Skilled Therapy Fall Risk;Balance Deficits;Not safe with independent transfers;Not safe ambulating independently;Decreased endurance and tolerance to activity Plan Treatment/Interventions Continue with current plan of care Recommendation PT Recommendation Moderate frequency, moderate intensity five days a week therapy recommended. Time In / Time Out [id number] IP PT Treatment Minutes 25 * Haim Alvarez [facility] - 02/14/2025 10:28 AM EDT Pharmacy Consult: Warfarin HPI: Mona Nettles is a(n) 44 y.o. female admitted 02/12 for increased dyspnea. Recent hospitalization (01/13-01/20) for PNA and abdominal wall cellulitis, followed by transfer to [facility] rehab (01/20-01/26). Allergies: Patient has no known allergies Indication for warfarin: Heterozygous FVL, hx DVT/PE, s/p IVC filter. INR Goal: 2.0 to 3.0 Warfarin therapy prior to admit: 7.5 mg daily. Warfarin managed outpatient by: outpatient physician's office - Dr. Ohara ([facility] [place]) - patient has home monitor. O: Recent Labs 02/12/25 0221 02/12/25 0935 02/13/25 0624 02/14/25 0654 HGB 9.5* 9.5* 8.6* 8.8* HCT 31.6* 31.5* 29.5* 29.4* PLT 271 278 231 236 INR 3.15* -- 2.66* 3.06* AST -- 15 15 13 ALT -- 12 10 11 Weight: (!) 512 lb 6.4 oz (232.4 kg) Date INR Warfarin Dose Notes 02/11 --- 02/12 3.15 7.5 mg 02/13 2.66 7.5 mg 02/14 3.06 5 mg A/P: Physician orders and progress notes reviewed. Hgb/Hct are stable. Bleeding signs/symptoms noted: abrasion. INR is 3.05 today Drug Interactions: no new interactions Will dose warfarin 5 mg today and continue to follow INR. ThanksHaim, PharmD * Bernie Poe RN - 02/14/2025 8:39 AM EDTAssociated Order(s): Inpatient consult to wound care for:Other (comment); LLQ abdomen cellulitis Inpatient consult to wound care for:Other (comment); LLQ abdomen cellulitis Consult performed by: Benoit Alvarez MD Consult ordered by: Osvaldo Pemberton MD Received consult for the above. Upon chart review, no LDA was added for a wound and wound care can not treat cellulitis. Secure chat message sent to BRIDGET MORENO, haylee RN signed in on treatment team, to advise to please re-consult after assessment if there is a wound to assess. Encourage continuation of preventative interventions such as frequent repositioning/ scheduled turns, as well as offloading bilateral heels. Patient is on a low air loss sleep surface to manage the microclimate of the skin (ensure function is on). Will not actively follow at time, please re-consult with any new concerns. * Benoit Alvarez MD - 02/13/2025 2:52 PM EDTAssociated Problem(s): Hypertension - Pressures were elevated likely from being fluid overloaded. Pressures are better. Restart home medications as reconciled and as appropriate. Cardiology following. * Benoit Alvarez MD - 02/13/2025 2:52 PM EDTAssociated Problem(s): Type 2 diabetes mellitus, without long-term current use of insulin (HCC) - Updated A1c was 7.6. Sugars are acceptable Hold oral home diabetic medications. Start sliding scale insulin. Monitor sugars, and titrate insulin to inpatient goal of 140-180. Insulin is a high risk medication. * Benoit Alvarez MD - 02/13/2025 2:52 PM EDTAssociated Problem(s): Anxiety - No acute issues reported Restart home medications as reconciled and as appropriate. * Benoit Alvarez MD - 02/13/2025 2:52 PM EDTAssociated Problem(s): Stage 3 acute kidney injury - Renal function with bump likely from overdiuresis Restart home medications as reconciled and as appropriate. Monitor closely; may need nephrology input soon. Potassium replacement ordered today. * Benoit Alvarez MD - 02/13/2025 2:52 PM EDTAssociated Problem(s): Presence of IVC filter - No acute issues reported Management of filter per placing physician * Benoit Alvarez MD - 02/13/2025 2:52 PM EDTAssociated Problem(s): Mood disorder - No acute issues reported Restart home medications as reconciled and as appropriate. * Benoit Alvarez MD - 02/13/2025 2:52 PM EDTAssociated Problem(s): Type 2 diabetes mellitus with diabetic polyneuropathy, without long-term current use of insulin (HCC) - No acute issues reported Restart home medications as reconciled and as appropriate. * Benoit Alvarez MD - 02/13/2025 2:52 PM EDTAssociated Problem(s): Chronic pain syndrome - Complicates all aspects of care Restart home medications as reconciled and as appropriate. Pharmacy consulted to assist with reconciling her narcotic regimen * Benoit Alvarez MD - 02/13/2025 2:52 PM EDTAssociated Problem(s): Chest pressure - Reported on admission Labs reviewed Echo reassuring as above Restart home medications as reconciled and as appropriate. Cardiology consult with plan as above * Benoit Alvarez MD - 02/13/2025 2:52 PM EDTAssociated Problem(s): Acute congestive heart failure (HCC) - Reported on admission Labs reviewed Echo reassuring as above Restart home medications as reconciled and as appropriate. Cardiology consult with plan as above * Benoit Alvarez MD - 02/13/2025 2:52 PM EDTAssociated Problem(s): Demand ischemia (HCC) - Reported on admission Labs reviewed Echo reassuring as above Restart home medications as reconciled and as appropriate. Cardiology consult with plan as above * Benoit Alvarez MD - 02/13/2025 2:52 PM EDTAssociated Problem(s): Chest pain - Reported on admission Labs reviewed Echo reassuring as above Restart home medications as reconciled and as appropriate. Cardiology consult with plan as above * Benoit Alvarez MD - 02/13/2025 2:52 PM EDTAssociated Problem(s): REYES (dyspnea on exertion) - Initially thought to be pneumonia is more than likely heart failure; patient diuresed very aggressively on Lasix Echo reassuring per report Labs reviewed with slight bump in creatinine. Holding further diuretic Restart home medications as reconciled and as appropriate. Cardiology consulted; noted plan for diuresis and eventual ischemic evaluation initially. Now notedplan to hold off on ischemic evaluation. Further plan pending renal function. * Benoit Alvarez MD - 02/13/2025 2:52 PM EDTAssociated Problem(s): Factor V Leiden - INR to be followed. Appreciate pharmacy assistance Labs reviewed Restart home medications as reconciled and as appropriate. Pharmacy to assist with Coumadin per facility protocol * Benoit Alvarez MD - 02/13/2025 2:52 PM EDTAssociated Problem(s): Hypothyroidism - Most recent TSH within normal limits per report Restart home medications as reconciled and as appropriate. * Benoit Alvarez MD - 02/13/2025 2:52 PM EDTAssociated Problem(s): AURELIA (obstructive sleep apnea) - Reports being noncompliant with her CPAP therapy unfortunately. Social work to assist with getting patient new parts for her machine. Await further guidance Continue NIV based on home regimen while here. * Benoit Alvarez MD - 02/13/2025 2:06 PM EDT Images from the original note were not included. PROGRESS NOTE CC: Follow-up for shortness of breath Assessment/Plan: Assessment & Plan REYES (dyspnea on exertion) - Initially thought to be pneumonia is more than likely heart failure; patient diuresed very aggressively on Lasix Echo reassuring per report Labs reviewed with slight bump in creatinine. Holding further diuretic Restart home medications as reconciled and as appropriate. Cardiology consulted; noted plan for diuresis and eventual ischemic evaluation initially. Now notedplan to hold off on ischemic evaluation. Further plan pending renal function. Factor V Leiden - INR to be followed. Appreciate pharmacy assistance Labs reviewed Restart home medications as reconciled and as appropriate. Pharmacy to assist with Coumadin per facility protocol Hypothyroidism - Most recent TSH within normal limits per report Restart home medications as reconciled and as appropriate. AURELIA (obstructive sleep apnea) - Reports being noncompliant with her CPAP therapy unfortunately. Social work to assist with getting patient new parts for her machine. Await further guidance Continue NIV based on home regimen while here. Hypertension - Pressures were elevated likely from being fluid overloaded. Pressures are better. Restart home medications as reconciled and as appropriate. Cardiology following. Type 2 diabetes mellitus, without long-term current use of insulin ([facility]) - Updated A1c was 7.6. Sugars are acceptable Hold oral home diabetic medications. Start sliding scale insulin. Monitor sugars, and titrate insulin to inpatient goal of 140-180. Insulin is a high risk medication. Anxiety - No acute issues reported Restart home medications as reconciled and as appropriate. Stage 3 acute kidney injury - Renal function with bump likely from overdiuresis Restart home medications as reconciled and as appropriate. Monitor closely; may need nephrology input soon. Potassium replacement ordered today. Presence of IVC filter - No acute issues reported Management of filter per placing physician Mood disorder - No acute issues reported Restart home medications as reconciled and as appropriate. Type 2 diabetes mellitus with diabetic polyneuropathy, without long-term current use of insulin (HCC) - No acute issues reported Restart home medications as reconciled and as appropriate. Chronic pain syndrome - Complicates all aspects of care Restart home medications as reconciled and as appropriate. Pharmacy consulted to assist with reconciling her narcotic regimen Chest pressure Acute congestive heart failure (HCC) Demand ischemia (HCC) Chest pain - Reported on admission Labs reviewed Echo reassuring as above Restart home medications as reconciled and as appropriate. Cardiology consult with plan as above Dispo: Inpatient pending improvement in renal function and pending okay for discharge per others. Discussed management of the case with care team members. 55 minutes spent on this encounter. VTE Prophylaxis: Anti-Embolism Intervention: Refused Qualifying Pharmacologic Prophylaxis warfarin (COUMADIN) tablet 7.5 mg ONCE WARFARIN WARFARIN - PHARMACY-MANAGED THERAPY Daily Active Hospital Problems Diagnosis *REYES (dyspnea on exertion) Chest pressure Acute congestive heart failure (HCC) Demand ischemia (HCC) Chest pain Type 2 diabetes mellitus with diabetic polyneuropathy, without long-term current use of insulin (HCC) Chronic pain syndrome Mood disorder Stage 3 acute kidney injury Presence of IVC filter Factor V Leiden Type 2 diabetes mellitus, without long-term current use of insulin (HCC) AURELIA (obstructive sleep apnea) Hypothyroidism Hypertension Anxiety Subjective: SABRINA reported ON. Pt denies f/c/n/v/cp/sob. Extensive discussion had with patient/family regarding the plan of care. Questions answered to the best of my ability. Objective: BP 132/57 (BP Location: Left arm, Patient Position: Sitting) Pulse 70 Temp 97.6 ??F (36.4 ??C) (Forehead) Resp 18 Ht 5' 7 (1.702 m) Wt (!) 512 lb 6.4 oz (232.4 kg) [facility] 12/15/2024 SpO2 95% BMI 80.25 kg/m?? I/O last 3 completed shifts: In: 711 [P.O.:711] Out: 7200 [Urine:7200] Weight: (!) 512 lb 6.4 oz (232.4 kg) Constitutional: Alert and in no distress. In chair. Morbidly obese. Cardiovascular: Regular rate and regular rhythm. Exam reveals no friction rub. No murmur heard. Pulmonary/Chest: DENNIS. Effort normal and breath sounds less coarse. No respiratory distress. There are no wheezes. Abdominal: Soft. Bowel sounds are quiet. No distension. There is no tenderness. There is no reboundand no guarding. Musculoskeletal: extremities atraumatic. Neurological: speech normal. Moves all extremities. Still with lower extremity edema. Skin: Skin is warm and dry. Labs: Laboratory data and diagnostic testing reviewed 02/13/25. Benoit Alvarez MD 02/13/2025 2:07 PM * Bernie Suarez [facility] - 02/13/2025 1:13 PM EDT Pharmacy Consult: Warfarin HPI: Mona Nettles is a(n) 44 y.o. female admitted 02/12 for increased dyspnea. Recent hospitalization (01/13-01/20) for PNA and abdominal wall cellulitis, followed by transfer to [facility] rehab (01/20-01/26). Allergies: Patient has no known allergies Indication for warfarin: Heterozygous FVL, hx DVT/PE, s/p IVC filter. INR Goal: 2.0 to 3.0 Warfarin therapy prior to admit: 7.5 mg daily. Warfarin managed outpatient by: outpatient physician's office - Dr. Ohara ([facility] [place]) - patient has home monitor. O: Recent Labs 02/12/25 0221 02/12/25 0935 02/13/25 0624 HGB 9.5* 9.5* 8.6* HCT 31.6* 31.5* 29.5* PLT 271 278 231 INR 3.15* -- 2.66* AST -- 15 15 ALT -- 12 10 Weight: (!) 512 lb 6.4 oz (232.4 kg) Date INR Warfarin Dose Notes 02/11 --- 02/12 3.15 7.5 mg 02/13 2.66 7.5 mg A/P: Physician orders and progress notes reviewed. Hgb/Hct are stable. Bleeding signs/symptoms noted: none. INR is 2.66 today Drug Interactions: no new interactions Will dose warfarin 7.5 mg today and continue to follow INR. Thank you, Bernie Suarez RPH PharmD 02/13/2025 1:10 PM * Avel Altamirano - 02/13/2025 1:12 PM EDT 02/13/25 1200 Reason for Visit Date of visit 02/13/25 Patient Assessment Patient Appears Dissatisfied Patient Hindu at Registration Judaism Patient Hindu Upon Assessment Judaism Place of Christianity Homebound Spiritual Strengths and Coping Resources Acceptance of changes or limitations in health Patient Spiritual Wellbeing Low Acuity - Spiritual Discomfort Interventions with Patient Relationship Building Interventions Cultivated a relationship of care and support Exploration Interventions Provided caring and supportive presence Empowerment Interventions Affirmed patient's experience Outcomes Expressed Outcomes Able to discuss emotions Care Plan Plan for Follow-Up Primer Inspector(s) remains available as needed Mona Nettles advised if her new diagnosis. She lives at home with her twenty - year old daughter. Shestated that she might be autistic but does not drive. Arti, is not able to come see her mom unless she is able to get a ride. She does not drive. They have a vehicle but has some mechanical issues.Landlord assist with helping her out. Provided support. * Mustapha Piper MD - 02/13/2025 8:28 AM EDT Heart & Vascular Progress Note PATIENT: Mona Nettles 0 Cardiology following for: REYES Subjective: No new complaints noted Objective: Vitals: 02/13/25 0716 BP: 145/62 Pulse: 75 Resp: 18 Temp: 97.6 ??F (36.4 ??C) SpO2: 92% I/O 24 hours: Intake/Output Summary (Last 24 hours) at 02/13/2025 0828 Last data filed at 02/13/2025 0602 Gross per 24 hour Intake 711 ml Output 7200 ml Net -6489 ml Physical Exam: Pt in no distress. Neck supple, 0 JVD Heart - S1, S2 , 0M/R/G. Lungs - Diminished Chest wall - nontender Abd - soft, NT, +BS Extremities- 0 edema, +2 DP/PT/Radial pulses Neuro - Alert and oriented Mood and affect appropriate Medication: amLODIPine 5 mg Oral Daily atorvastatin 40 mg Oral Nightly famotidine 40 mg Oral Nightly FLUoxetine 60 mg Oral Nightly folic acid 1 mg Oral Daily fUROsemide 40 mg Intravenous BID Diuretic 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) - FSBS (Correction Only) Input 1 Each MISCELLANEOUS QID MEALTIME/HS And insulin aspart (NovoLOG) - Correction - Calculator 0-40 Units Subcutaneous QID MEALTIME/HS LEVOthyroxine 75 mcg Oral DAILY EARLY AM miconazole Topical BID mirabegron 50 mg Oral Daily oxyCODONE 30 mg Oral *Q12H propranoloL 20 mg Oral *Q12H QUEtiapine 100 mg Oral BID rOPINIRole 2 mg Oral TID tiZANidine 8 mg Oral Nightly warfarin - pharmacy-managed therapy MISCELLANEOUS Daily Labs & Studies: All pertinent labs & radiologic studies for the past 24 hours have been reviewed Telemetry: SR Assessment: Chest pain -trops flat and declining not in pattern with ACS 31, 27 -EKG SR without acute ischemia noted -statin -Echo without WMA EF stable Acute HF? -BNP 2037 -Echo EF 60-65% Left ventricular segmental wall motion is grossly normal, however endocardial definition is limited. -Lasix/ propanolol HTN -Norvasc, propanolol -uncontrolled DM2 -per primary -A1c 7.6 Plan: Continue diuresis I/O -6489 ml since admission Consider ischemic evaluation tomorrow... Stress? Replace K 3.4 Cr bump overnight Further input from Dr Feliz Jason, PATCH MACHINE OPERATOR, Heart and Vascular 02/13/2025 Disposition Perspective - Medically Ready for Discharge: No Anticipated Discharge: 1-2 days Discharge when / if: tbd Attending Teamcenter Solution Architect Attestation: I have seen and examined the patient. I have discussed with the nurse practitioner and agree with his/her findings as documented in their note with my additions below: PROBLEM LIST: Chest pain Shortness of breath ?Acute unspecified heart failure Demand ischemia Chronic lymphedema Hypertension Hyperlipidemia Diabetes Family history of IA ASSESSMENT AND PLAN: Mona Nettles is a 44 y.o. year old female with a past medical history of HTN, HLD, DM, chronic lymphedema, AURELIA, Factor V Leiden, PE, fatty liver, back pain, GERD, thyroid disease, anemia, anxiety who presented on 02/12/2025 with shortness of breath and chest pain. Cardiology is consulted on 02/12/25 for chest pain. 1. Chest pain, ?acute heart failure. Here initially with worsening shortness of breath x 1 week after recent admission for PNA and abdominal cellulitis and subsequent rehab stay. Also chest pain. On my initial assessment she reports worsened dyspnea on exertion, some exertional chest discomfort and possible PND/orthopnea recently. Shereports chronic lymphedema. Initial troponins 31, 27. Initial NTproBNP 2037. Initial Cr 1.08, Na 139, K 3.7, Ca 7.7, INR 3.1, WBC 8.4, Hgb 9.5, Plt 271. Chest CT with essentially resolved right lung opacities, no coronary artery calcifications. CXR clear. ECG sinus, non-ischemic. TTE here 02/12/25 with LVEF 60-65%, normal RV function. History of chronic lymphedema. No cardiac history. None on file. Home cardiac related meds include lipitor, propranolol, torsemide, coumadin. Today feeling fine. No chest pain. No shortness of breath. Swelling better. On exam RRR, clear lungs, no JVD, mild non-pitting swelling to the mid-shins. Blood pressure 157/80. I/O -6L. Cr 1.35, na 138, K 3.4, Alb 3.1, WBC 6.2, Hgb 8.6, Plt 231, INR 2.6. Telemetry sinus without arrhythmia. Current cardiac related meds include IV lasix, lipitor, amlodipine, propranolol, coumadin. Impression is here with chest discomfort with some typical features but in stable pattern. Also worsened shortness of breath after having been recently treated for PNA. Chest CT here shows near resolution of PNA. NTproBNP elevated. Troponin elevated but not in ACS pattern and probably demand ischemia. Etiology of shortness of breath probably multifactorial related to recent PNA, obesity, AURELIA and maybe some degree of heart failure. Diuresed -6L with just two doses of IV lasix. Slight uptrend in Cr. Now without chest pain or shortness of breath. Plan: - Stop IV lasix. Plan for torsemide 40mg daily starting tomorrow or when Cr stable. - Discussed holding off on ischemic eval at this time given resolution of symptoms, normal EF and high likelihood of false positive results given her size. Will focus on med management of CHF. - Additional GDMT tomorrow as tolerated by kidney function. Will follow along. Please call with any questions. Mustapha Piper MD [facility] Heart and Vascular * Benoit Alvarez MD - 02/12/2025 3:01 PM EDTAssociated Problem(s): REYES (dyspnea on exertion) - Initially thought to be pneumonia is more than likely heart failure Echo Labs reviewed Restart home medications as reconciled and as appropriate. Cardiology consulted; noted plan for diuresis and eventual ischemic evaluation * Benoit Alvarez MD - 02/12/2025 3:01 PM EDTAssociated Problem(s): Factor V Leiden - INR okay per report. Labs reviewed Restart home medications as reconciled and as appropriate. Pharmacy to assist with Coumadin per facility protocol * Benoit Alvarez MD - 02/12/2025 3:01 PM EDTAssociated Problem(s): Hypothyroidism - Most recent TSH within normal limits Restart home medications as reconciled and as appropriate. * Benoit Alvarez MD - 02/12/2025 3:01 PM EDTAssociated Problem(s): AURELIA (obstructive sleep apnea) - Reports being noncompliant with her CPAP therapy unfortunately. Social work to assist with getting patient new parts for her machine. Continue NIV based on home regimen while here. * Benoit Alvarez MD - 02/12/2025 3:01 PM EDTAssociated Problem(s): Hypertension - Pressures are elevated likely from being fluid overloaded Restart home medications as reconciled and as appropriate. Plan as above * Benoit Alvarez MD - 02/12/2025 3:01 PM EDTAssociated Problem(s): Type 2 diabetes mellitus, without long-term current use of insulin (HCC) - Most recent A1c 6.8. This was 8 months ago. Update A1c Hold oral home diabetic medications. Start sliding scale insulin. Monitor sugars, and titrate insulin to inpatient goal of 140-180. Insulin is a high risk medication. * Benoit Alvarez MD - 02/12/2025 3:01 PM EDTAssociated Problem(s): Anxiety - No acute issues reported Restart home medications as reconciled and as appropriate. * Benoit Alvarez MD - 02/12/2025 3:01 PM EDTAssociated Problem(s): Stage 3 acute kidney injury - Renal function appears to be around baseline Restart home medications as reconciled and as appropriate. Monitor closely while on aggressive diuretics * Benoit Alvarez MD - 02/12/2025 3:01 PM EDTAssociated Problem(s): Presence of IVC filter - No acute issues reported Management of filter per placing physician * Benoit Alvarez MD - 02/12/2025 3:01 PM EDTAssociated Problem(s): Mood disorder - No acute issues reported Restart home medications as reconciled and as appropriate. * Benoit Alvarez MD - 02/12/2025 3:01 PM EDTAssociated Problem(s): Type 2 diabetes mellitus with diabetic polyneuropathy, without long-term current use of insulin (HCC) - No acute issues reported Restart home medications as reconciled and as appropriate. * Benoit Alvarez MD - 02/12/2025 3:01 PM EDTAssociated Problem(s): Chronic pain syndrome - Complicates all aspects of care Restart home medications as reconciled and as appropriate. Pharmacy consulted to assist with reconciling her narcotic regimen * Benoit Alvarez MD - 02/12/2025 3:01 PM EDTAssociated Problem(s): Chest pressure - Reported on admission Labs reviewed Echo Restart home medications as reconciled and as appropriate. Cardiology consult with plan as above * Benoit Alvarez MD - 02/12/2025 3:01 PM EDTAssociated Problem(s): Acute congestive heart failure (HCC) - Reported on admission Labs reviewed Echo Restart home medications as reconciled and as appropriate. Cardiology consult with plan as above * Benoit Alvarez MD - 02/12/2025 3:01 PM EDTAssociated Problem(s): Demand ischemia (HCC) - Reported on admission Labs reviewed Echo Restart home medications as reconciled and as appropriate. Cardiology consult with plan as above * Benoit Alvarez MD - 02/12/2025 3:01 PM EDTAssociated Problem(s): Chest pain - Reported on admission Labs reviewed Echo Restart home medications as reconciled and as appropriate. Cardiology consult with plan as above * Bernie Suarez [facility] - 02/12/2025 11:59 AM EDT Pharmacy Consult: Warfarin HPI: Mona Nettles is a(n) 44 y.o. female admitted 02/12 for increased dyspnea. Recent hospitalization (01/13-01/20) for PNA and abdominal wall cellulitis, followed by transfer to [facility] rehab (01/20-01/26). Allergies: Patient has no known allergies Indication for warfarin: Heterozygous FVL, hx DVT/PE, s/p IVC filter. INR Goal: 2.0 to 3.0 Warfarin therapy prior to admit: 7.5 mg daily. Warfarin managed outpatient by: outpatient physician's office - Dr. Ohara ([facility] [place]) - patient has home monitor. O: Recent Labs 02/12/25 0221 02/12/25 0935 HGB 9.5* 9.5* HCT 31.6* 31.5* PLT 271 278 INR 3.15* -- AST -- 15 ALT -- 12 Weight: (!) 525 lb 12.8 oz (238.5 kg) Date INR Warfarin Dose Notes 02/11 --- 02/12 3.15 7.5 mg A/P: Physician orders and progress notes reviewed. Hgb/Hct are stable. Bleeding signs/symptoms noted: none. INR is 3.15 today Drug Interactions: no new interactions Will dose warfarin 7.5 mg today and continue to follow INR. Thank you, Bernie Suarez RPH PharmD 02/12/2025 11:58 AM * Cynthia Concepcion, PT - 02/12/2025 10:55 AM EDT 02/12/25 1055 PT Subjective Note Type Evaluation Patient Room/Unit 3708 PT Subjective Comments #1 patient up in chair, she is pleasant and cooperative, tearful regarding new diagnosis of CHF, wondering how she should tell her daughter because she does not know how her daughter will respond Discharge Information Evaluation to serve as discharge summary if no further treatment provided before the facility discharge Admitting Diagnosis REYES Past Med Hx has a past medical [...] INFERIOR VENA CAVA FILTER PLACEMENT. Diagnostic Testing reviewed Clinical Course Patient presented to ER on 02/12 with complaints of SOB, reports worsening SOB over last week, feels like she struggles to breathe with any minor activity and cannot move, +chest pressure, has used her inhaler without relief, CXR shows no acute cardiopulmonary process, troponin and BNP elevated, EKG shows sinus rhythm with rate of 66 bpm, repeat troponin down trending, CT ordered tofurther evaluate dyspnea shows essentially resolved R lung opacities, likely an infectious pneumonia, admitted for further care of REYES and chest pressure Pain Screening PT/OT Patient Currently in Pain Denies Cognition Orientation Intact Arousal Normal Safety Awareness Normal Affect/Ability to cope Normal Command Following Normal Memory Intact Communication Intact Precautions Therapy Precautions Yes Precaution Info Given To use call light to request assistance with all mobility Other precautions fall risk, REYES Home Living/Prior Function Type of Home House Home Layout One level;Ramped entrance (reports ramp is steep) Number of Steps 0 Home Equipment 2 wheeled walker;Wheelchair-manual;Bedside commode;Shower stool;Scooter (home is not conducive to scooter) Level of Assistance Needs assistance with ADLs;Needs assistance with homemaking;Needs assistance with functional transfers;Ambulatory in home (limited household distances of 15 feet) Lives With Daughter (daughter's fiance) Fall History No falls in the last three months Coord/Sensation Assessed Grossly Intact/Normal Perception Perception Grossly intact/normal Observation Presentation Patient resting in bed Posture 5'7 ; 525 lbs per chart Observation IV;Telemetry;Bed alarm;Chair alarm Vitals VSS UE Assessment LUE Assessment WFL RUE Assessment WFL LE Assessment LLE Assessment WFL RLE Assessment WFL Bed Mobility Additional Comments not tested; up in chair Transfers Sit to Stand Contact guard assist Stand to Sit Contact guard assistance Bed to/from chair Contact guard assist Stand Pivot Transfers Contact guard assist Gait Gait Contact guard assist Gait Distance (Feet) 10 Feet Assistive Device 2 Wheel walker;Bariatric Pattern Slow olimpia Additional Comments increased effort noted with gait, increased dyspnea following short gait distance Functional Status Score (FSS-ICU) Is the patient currently in ICU? No AM PAC: How much help from another [...] 3 climbing 3-5 steps with a railing? 1 AM PAC: BASIC MOBILITY SCORING AM PAC Moblity Raw Score 16 AM PAC Mobility CMS 0-100% Functional Percentage 47.12 AM PAC Mobility CMS G Code Modifier CK Balance Sitting Balance 3+/5 sits without UE support for 30 seconds or greater;Static;Dynamic Standing Balance 2/5 indep, requires both UE support;Static;Dynamic Education Education To use call light to request assistance with all mobility;Patient/Family Education;Role of Therapy;Safety with mobility;Cues for proper technique;Discharge planning;Up with assistance only;Precautions;Safe and proper technique with transfers;Safe and proper technique with gait pattern Patient Safety Patient Safety Patient left in chair with needs in reach;Nursing notified of status;Chair/personal alarm activated Assessment Assessment Decreased gait;Decreased functional mobility;Decreased balance;Decreased activity tolerance ;Decreased endurance;Decreased self-care transfers;Decreased high-level ADLs Prognosis Good;With continued PT s/p acute discharge Rationale for Skilled Therapy Fall Risk;Balance Deficits;Not safe with independent transfers;Not safe ambulating independently Goals Patient and/or Family Goal to be able to go home PT GOALS (Yes/No) Yes Add Goals Will Perform Sit to Stand Independently;To improve functional mobility Will Transfer Bed/Chair Independently;To improve functional mobility Will Ambulate With 2 wheel walker;11-30 feet;Supervision;To improve functional mobility Will Tolerate Continuous Activity 11-15 min;To improve functional mobility Goal Formulation With patient Time for Goal Achievement/Duration of Treatment 14 days, 02/26/25 Plan Treatment/Interventions Gait training;Bed mobility;Neuromuscular re- education;Balance training;Functional transfer training;LE strengthening/ROM;Increase activity tolerance ;Patient/Family training;Equipment eval/education;Compensatory technique education;Continued evaluation;Endurance training PT Frequency 3-5x/week Recommendation PT Recommendation Moderate frequency, moderate intensity five days a week therapy recommended. Time In / Time Out [id number] IP PT Evaluation Minutes 15 IP PT Treatment Minutes 8 (8 TA) The total time spent caring for this patient included but was not limited to medical record review;hands-on treatment;communication and education with patient and/or family/caregiver;clinical judgement necessary for treatment planning for next session;communication with nursing and/or care coordinat ion/social work regarding patient status and discharge planning * Sunni Wise RN - 02/12/2025 10:27 AM EDT CC attempted to complete initial assessment. Staff in room. CC to follow up. * Alix Peter RN - 02/12/2025 5:46 AM EDT Patient arrived on unit and 4 Eyes Skin Assessment within 4 hours completed with YENNY Lopez Score: (!) 16 Devices Removed/ Reapplied for Skin Assessment NA Wound Present of Arrival: Yes No - Yes Explain: Yes, SEE BELOW 02/12/25 0528 Skin Color/Condition Skin Color Red Skin Condition/Temp Flaky Skin Color/Condition (WDL) X Skin Integrity - Remove any devices or call the provider for direction Skin Integrity Blister;Redness;Abrasion Abrasion Location Knee Left Blister Location Toes(s) Right;Toe(s) Left;Other (Comment) (LLQ of abdomen cellulitis per patient) Redness Location Gluteal Cleft;Coccyx;Back Left;Back Right;Abdomen Skin Integrity (WDL) X Wound LDAs None Initiate prevention protocol and Consult wound care Dietary Orders Ordered 75 Gram Consistent Carbohydrate, Cardiac Diet DIET EFFECTIVE NOW 02/12/25 0434 Comments: No documented in this encounter H&P Notes * Aly Najera DO - 02/18/2025 10:12 AM EDT [facility] Gastroenterology Pre-Procedural History and Physical Primary Care Physician: Miguel Angel Ohara MD Pre-Procedural Diagnosis: iron deficiency anemia Indication(s) For Procedure: same Procedure Planned: Colonoscopy --diagnostic, Esophagogastroduodenoscopy --diagnostic HISTORY OF PRESENT ILLNESS: Mona Nettles is a 44 y.o. female who has a past medical history of Anemia, Anxiety, Cellulitis, CHF (congestive heart failure) (HCC), Chronic kidney disease, Diabetes mellitus (HCC), Eczema, Factor V Leiden, Herniation of intervertebral disc between L5 and S1, Hypertension, AURELIA (obstructive sleep a pnea), Pneumonia, and Thyroid disease. who presents for the above procedure. Patient is on coumadinwhich has been held for this procedure and bridged with heparin 44 y/o female presents for assessment of iron deficiency anemia. EGD/Colonoscopy to investigate Past Medical History: Diagnosis Date Anemia Anxiety Cellulitis abdomen CHF (congestive heart failure) (HCC) Chronic kidney disease Diabetes mellitus (HCC) Eczema Factor V Leiden Herniation of intervertebral disc between L5 and S1 Hypertension AURELIA (obstructive sleep apnea) uses CPAP Pneumonia Thyroid disease Past Surgical History: Procedure Laterality Date ABDOMEN SURGERY lap band BACK SURGERY SECTION IR IVC FILTER PLACEMENT IR PICC INSERTION EQUAL OR > 5 YEARS 12/15/2019 IR PICC INSERTION EQUAL OR > 5 YEARS 12/15/2019 Evonne Jewell PA-C EDG IR UMBILICAL HERNIA REPAIR 2007 Medications: No current facility-administered medications on file prior to encounter. Current Outpatient Medications on File Prior to Encounter Medication Sig Dispense Refill albuterol (PROVENTIL HFA;VENTOLIN HFA) 90 mcg/actuation Inhl HFA Aerosol Inhaler Inhale 2 Puffs into the lungs as needed. amLODIPine (NORVASC) 5 mg Oral Tablet Take 5 mg by mouth daily. atorvastatin (LIPITOR) 40 mg Oral Tablet Take 40 mg by mouth nightly. famotidine (PEPCID) 20 mg Oral Tablet Take 40 mg by mouth nightly. folic acid (FOLVITE) 1 mg Oral Tablet Take 1 Tablet by mouth daily. 30 Tablet 0 glipiZIDE (GLUCOTROL) 5 mg Oral Tablet Take 1 Tablet by mouth daily (with breakfast). 30 Tablet 0 LEVOthyroxine (SYNTHROID) 50 mcg Oral Tablet Take 75 mcg by mouth daily. metFORMIN (GLUCOPHAGE) 500 mg Oral Tablet Take 1 Tablet by mouth 2 times daily (with meals). mirabegron (MYRBETRIQ) 50 mg Oral Tablet Sustained Release 24 hr Take 50 mg by mouth daily. oxyCODONE 30 mg Oral tablet,oral only,ext.rel.12 hr Take 30 mg by mouth every 12 hours. propranoloL (INDERAL) 20 mg Oral Tablet Take 20 mg by mouth every 12 hours. QUEtiapine (SEROQUEL) 100 mg Oral Tablet Take 100 mg by mouth 2 times daily. rOPINIRole (REQUIP) 2 mg Oral Tablet Take 2 mg by mouth 3 times daily. tiZANidine (ZANAFLEX) 4 mg Oral Tablet Take 8 mg by mouth nightly. at bedtime torsemide (DEMADEX) 20 mg Oral Tablet Take 20 mg by mouth daily. (Patient taking differently: Take 20 mg by mouth daily. taking differently d/t accidents) traMADoL (ULTRAM) 50 mg Oral Tablet Take 50-100 mg by mouth 4 times daily. warfarin (COUMADIN) 5 mg Oral Tablet Take 5-7.5 mg by mouth daily. Takes 7.5 mg MWF and 5 mg on allother days. FLUoxetine (PROZAC) 20 mg Oral Capsule Take 60 mg by mouth nightly. oxyCODONE (OXYCONTIN) 15 mg Oral tablet,oral only,ext.rel.12 hr Take 30 mg by mouth every 12 hours.(Patient not taking: Reported on 02/12/2025) Allergies: No Known Allergies Family History Problem Relation Age of Onset Heart Attack Mother pt is suspicious about this, thinks clotting disorder Kidney Disease Mother Hypertension Mother Early Father 33 Heart Attack Father 33 Other (Factor V Leiden) Father Social History Socioeconomic History Marital status: Spouse name: Not on file Number of children: Not on file Years of education: Not on file Highest education level: Not on file Occupational History Not on file Tobacco Use Smoking status: Never Smokeless tobacco: Never Vaping Use Vaping status: Never Used Substance and Sexual Activity Alcohol use: Never Drug use: Never Sexual activity: Not on file Other Topics Concern Not on file Social History Narrative Not on file Social Drivers of Health Financial Resource Strain: Medium Risk (02/14/2025) Overall Financial Resource Strain (CARDIA) Difficulty of Paying Living Expenses: Somewhat hard Food Insecurity: Food Insecurity Present (02/14/2025) Hunger Vital Sign Worried About Running Out of Food in the Last Year: Sometimes true Ran Out of Food in the Last Year: Never true Transportation Needs: No Transportation Needs (02/14/2025) [facility] IP Transportation In the past 12 months, has lack of reliable transportation kept you from medical appointments, meetings, work or from getting things needed for daily living?: No Physical Activity: Inactive (02/14/2025) Exercise Vital Sign Days of Exercise per Week: 0 days Minutes of Exercise per Session: 0 min Stress: Stress Concern Present (02/14/2025) [employer] [place] [employer] - Occupational Stress Questionnaire Feeling of Stress : To some extent Social Connections: Unknown (04/16/2023) Received from [facility] Family and Community Support Help with Day-to-Day Activities: Not on file Lonely or Isolated: Not on file Intimate Partner Violence: Unknown (04/16/2023) Received from [facility] Abuse Screen Unsafe at Home or Work/School: Not on file Feels Threatened by Someone?: Not on file Does Anyone Keep You from Contacting Others or Doint Things Outside the Home?: Not on file Physical Sign of Abuse Present: Not on file Housing Stability: Unknown (04/16/2023) Received from [facility] Housing Stability Current Living Arrangements: Not on file Potentially Unsafe Housing Conditions: Not on file PHYSICAL EXAM: Vitals: BP (!) 174/70 (BP Location: Right arm) Pulse 96 Temp 98.1 ??F (36.7 ??C) (Forehead) Resp 16 Ht 5' 7 (1.702 m) Wt (!) 520 lb 6.4 oz (236.1 kg) LMP 12/15/2024 SpO2 97% BMI 81.51 kg/m?? CONSTITUTIONAL: No apparent distress, appears stated age HEENT: Atraumatic/normocephalic, extra-ocular muscles intact, no scleral icterus, b/l ears without defect, adequate hearing, b/l nares patent, moist mucus membranes, full range of motion of neck CARDIOVASCULAR: Regular rate and rhythm, no murmurs/rugs/gallops, normal S1 and S2 ausculated RESPIRATORY: No increased work of breathing, clear to auscultation bilaterally, no wheezes/rales/ronchi GI: soft, non-distended, non-tender to palpation, +bowel sounds, no rebound/guarding, MUSCULOSKELETAL: No redness, warmth, or swelling of the joints. Range of motion normal. NEUROLOGIC: Awake, alert, cooperative, CN II-XII grossly intact, no seizures/tremors noted, no asterixis elicited PSYCHIATRIC: Normal affect, pleasant mood DATA: Lab Results Component Value Date WBC 6.8 02/14/2025 HGB 8.8 (L) 02/14/2025 HCT 29.4 (L) 02/14/2025 PLT 236 02/14/2025 CHOLESTEROL 148 08/31/2020 TRIG 109 08/31/2020 HDL 44 08/31/2020 LDLCALC 82 08/31/2020 ALT 12 02/18/2025 AST 20 02/18/2025 NA 138 02/18/2025 K 4.3 02/18/2025 CL 103 02/18/2025 CALCIUM 8.5 (L) 02/18/2025 BUN 14 02/18/2025 CREATININE 1.19 02/18/2025 GFRCKDEPI 58 (L) 02/18/2025 CO2 24 02/18/2025 INR 1.42 (H) 02/18/2025 GLU 166 (H) 02/18/2025 HGBA1C 7.6 (H) 02/12/2025 TSH 4.940 (H) 06/18/2024 TSHREFLEX 3.710 01/01/2025 [id number] 11.7 (L) 12/15/2019 Lab Results Component Value Date INR 1.42 (H) 02/18/2025 INR 1.82 (H) 02/17/2025 Last Oral Intake: Yesterday Previous Anesthesia Reaction: no Pre-Procedure Assessment: Risks, benefits, potential complications (including but not limited to missed lesions, sedation, bleeding, perforation and or ) and alternatives were discussed with the patient or patient's legally authorized environmental marketing representative. The patient's pre-procedural physical assessment indicates that the patient is suitable for and agrees to the planned sedation and procedure. Cardiovascular and Vital signs Stable: yes Adequate/Patient Oral Airway yes ASA: 4 ASSESSMENT / PLAN: Mona Nettles is a 44 y.o. female who presents for the above specified procedure. Aly Najera DO SEP Gastroenterology * Benoit Alvarez MD - 02/12/2025 2:52 PM EDT [facility] HISTORY & PHYSICAL Admitting Physician: Osvaldo Pemberton MD Date of Admit: 02/12/2025 Primary Care Provider: Miguel Angel Ohara MD SUBJECTIVE: History provided by: chart review and the patient Chief Complaint: Chief Complaint Patient presents with Shortness of Breath SOB currently on Neb with Duoneb and albuterol. Being treated History of Present Illness: Mona Is a 44-year-old female with past medical history significant fordyspnea on exertion, factor V Leiden, hypothyroidism, AURELIA, hypertension, type 2 diabetes, anxiety, GRAZYNA, presence of IVC filter, mood disorder, diabetic polyneuropathy, chronic pain syndrome. She presented to the emergency room on 02/12/2025 with shortness of breath. She tells me that 2 weeks ago she started having shortness of breath however yesterday became significantly worse in the morning. She had pneumonia 3 weeks prior for which she was admitted. She thought that her pneumonia was back. This is a prompted her to come to the emergency room. While in the ER, patient was noted as having elevated BNP, elevated troponin, baseline renal function. There was no leukocytosis. Anemia was around baseline. Chest x-ray was without acute cardiopulmonary process. CT chest showed essentially resolvedright lung opacities. INR was appropriately therapeutic per report. EKG was without acute ST segment changes or T wave inversions. Patient reported having fevers that were low-grade, chest tightness, shortness of breath, recently starting on Zofran therapy. She denied chills, nausea, vomiting, missing medications consistently, bowel or bladder habit changes, bleeding issues, recent changes to her vision/hearing/taste/smell, tobacco use, alcohol use, illicit drug use. This note was completed using voice recognition technology. Despite the pattern chart writer's best efforts to proof read, it may still contain unintended errors. Please call with questions. Past Surgical History: Procedure Laterality Date ABDOMEN SURGERY lap band BACK SURGERY SECTION IR IVC FILTER PLACEMENT IR PICC INSERTION EQUAL OR > 5 YEARS 12/15/2019 IR PICC INSERTION EQUAL OR > 5 YEARS 12/15/2019 Evonne Jewell PA-C [facility] IR UMBILICAL HERNIA REPAIR 2007 Medications Prior to Admission Medication Sig Dispense Refill Last Dose/Taking albuterol (PROVENTIL HFA;VENTOLIN HFA) 90 mcg/actuation Inhl HFA Aerosol Inhaler Inhale 2 Puffs into the lungs as needed. 02/12/2025 Morning amLODIPine (NORVASC) 5 mg Oral Tablet Take 5 mg by mouth daily. Taking at 11:00 AM atorvastatin (LIPITOR) 40 mg Oral Tablet Take 40 mg by mouth nightly. 02/11/2025 Bedtime famotidine (PEPCID) 20 mg Oral Tablet Take 40 mg by mouth nightly. 02/11/2025 Bedtime folic acid (FOLVITE) 1 mg Oral Tablet Take 1 Tablet by mouth daily. 30 Tablet 0 02/11/2025 Morning glipiZIDE (GLUCOTROL) 5 mg Oral Tablet Take 1 Tablet by mouth daily (with breakfast). 30 Tablet 0 02/11/2025 Morning LEVOthyroxine (SYNTHROID) 50 mcg Oral Tablet Take 75 mcg by mouth daily. 02/11/2025 Morning metFORMIN (GLUCOPHAGE) 500 mg Oral Tablet Take 1 Tablet by mouth 2 times daily (with meals). 02/11/2025 Bedtime mirabegron (MYRBETRIQ) 50 mg Oral Tablet Sustained Release 24 hr Take 50 mg by mouth daily. 02/11/2025 Morning oxyCODONE 30 mg Oral tablet,oral only,ext.rel.12 hr Take 30 mg by mouth every 12 hours. 02/11/2025 at11:00 PM propranoloL (INDERAL) 20 mg Oral Tablet Take 20 mg by mouth every 12 hours. 02/11/2025 Bedtime QUEtiapine (SEROQUEL) 100 mg Oral Tablet Take 100 mg by mouth 2 times daily. 02/11/2025 Bedtime rOPINIRole (REQUIP) 2 mg Oral Tablet Take 2 mg by mouth 3 times daily. 02/11/2025 Bedtime tiZANidine (ZANAFLEX) 4 mg Oral Tablet Take 8 mg by mouth nightly. at bedtime 02/11/2025 Bedtime torsemide (DEMADEX) 20 mg Oral Tablet Take 20 mg by mouth daily. (Patient taking differently: Take 20 mg by mouth daily. taking differently d/t accidents) Taking Differently traMADoL (ULTRAM) 50 mg Oral Tablet Take 50-100 mg by mouth 4 times daily. 02/11/2025 Bedtime warfarin (COUMADIN) 5 mg Oral Tablet Take 5-7.5 mg by mouth daily. Takes 7.5 mg MWF and 5 mg on allother days. 02/11/2025 Bedtime FLUoxetine (PROZAC) 20 mg Oral Capsule Take 60 mg by mouth nightly. Unknown oxyCODONE (OXYCONTIN) 15 mg Oral tablet,oral only,ext.rel.12 hr Take 30 mg by mouth every 12 hours.(Patient not taking: Reported on 02/12/2025) Not Taking No Known Allergies reports that she has never smoked. She has never used smokeless tobacco. She reports that she does not drink alcohol and does not use drugs. Family History Problem Relation Age of Onset Heart Attack Mother pt is suspicious about this, thinks clotting disorder Kidney Disease Mother Hypertension Mother Early Father 33 Heart Attack Father 33 Other (Factor V Leiden) Father REVIEW OF SYSTEMS: Pertinent items are noted in HPI. OBJECTIVE: Physical Exam: Patient Vitals for the past 24 hrs: BP Temp Temp src Pulse Resp SpO2 Height Weight 02/12/25 1321 (!) 161/86 98.6 ??F (37 ??C) Oral 72 18 97 % -- -- 02/12/25 1317 -- -- -- 76 -- -- -- -- 02/12/25 1113 -- -- -- 101 -- -- -- -- 02/12/25 0903 151/67 97.7 ??F (36.5 ??C) Oral 71 19 100 % -- -- 02/12/25 0528 139/63 97.4 ??F (36.3 ??C) Oral 67 20 100 % -- -- 02/12/25 0509 -- -- -- -- -- -- 5' 7 (1.702 m) (!) 525 lb 12.8 oz (238.5 kg) 02/12/25 0500 -- -- -- 65 (!) 23 -- -- -- 02/12/25 0430 -- -- -- 62 (!) 23 100 % -- -- 02/12/25 0400 -- -- -- 65 (!) 26 97 % -- -- 02/12/25 0330 -- -- -- 63 20 -- -- -- 02/12/25 0300 -- -- -- 63 (!) 31 -- -- -- 02/12/25 0230 -- -- -- 67 (!) 21 -- -- -- 02/12/25 0200 -- -- -- 68 (!) 29 -- -- -- 02/12/25 0130 -- -- -- 70 (!) 34 95 % -- -- 02/12/25 0116 135/69 98.2 ??F (36.8 ??C) Oral 75 20 97 % -- -- .ipvital Body mass index is 82.35 kg/m??. General Appearance: Morbidly obese. cooperative, no distress, appears stated age Head: Normocephalic, without obvious abnormality, atraumatic Eyes: Conjunctiva clear Ears: Normal external ear canals, both ears Nose: Nares normal, septum midline, mucosa normal Throat: Lips, mucosa, and tongue normal Neck: Supple, symmetrical, trachea midline Back: Symmetric Lungs: DENNIS. Breath sounds are coarse, respirations unlabored Chest wall: No tenderness or deformity Heart: reg rate and rhythm, S1 and S2 normal, no murmur. Abdomen: Soft, non-tender, bowel sounds quiet, no masses, no organomegaly Extremities: Extremities normal, atraumatic. 2-3+ LE edema noted. Skin: Visible skin color, texture, turgor normal, no rashes or lesions Neurologic: Speech fluent and appropriate. Moves all extremities. Labs /Radiology: Reviewed ASSESSMENT & PLAN: Active Hospital Problems Diagnosis *REYES (dyspnea on exertion) Chest pressure Acute congestive heart failure (HCC) Demand ischemia ([facility]) Chest pain Type 2 diabetes mellitus with diabetic polyneuropathy, without long-term current use of insulin ([facility]) Chronic pain syndrome Mood disorder Stage 3 acute kidney injury Presence of IVC filter Factor V Leiden Type 2 diabetes mellitus, without long-term current use of insulin ([facility]) AURELIA (obstructive sleep apnea) Hypothyroidism Hypertension Anxiety Assessment & Plan REYES (dyspnea on exertion) - Initially thought to be pneumonia is more than likely heart failure Echo Labs reviewed Restart home medications as reconciled and as appropriate. Cardiology consulted; noted plan for diuresis and eventual ischemic evaluation Factor V Leiden - INR okay per report. Labs reviewed Restart home medications as reconciled and as appropriate. Pharmacy to assist with Coumadin per facility protocol Hypothyroidism - Most recent TSH within normal limits Restart home medications as reconciled and as appropriate. AURELIA (obstructive sleep apnea) - Reports being noncompliant with her CPAP therapy unfortunately. Social work to assist with getting patient new parts for her machine. Continue NIV based on home regimen while here. Hypertension - Pressures are elevated likely from being fluid overloaded Restart home medications as reconciled and as appropriate. Plan as above Type 2 diabetes mellitus, without long-term current use of insulin ([facility]) - Most recent A1c 6.8. This was 8 months ago. Update A1c Hold oral home diabetic medications. Start sliding scale insulin. Monitor sugars, and titrate insulin to inpatient goal of 140-180. Insulin is a high risk medication. Anxiety - No acute issues reported Restart home medications as reconciled and as appropriate. Stage 3 acute kidney injury - Renal function appears to be around baseline Restart home medications as reconciled and as appropriate. Monitor closely while on aggressive diuretics Presence of IVC filter - No acute issues reported Management of filter per placing physician Mood disorder - No acute issues reported Restart home medications as reconciled and as appropriate. Type 2 diabetes mellitus with diabetic polyneuropathy, without long-term current use of insulin (HCC) - No acute issues reported Restart home medications as reconciled and as appropriate. Chronic pain syndrome - Complicates all aspects of care Restart home medications as reconciled and as appropriate. Pharmacy consulted to assist with reconciling her narcotic regimen Chest pressure Acute congestive heart failure (HCC) Demand ischemia (HCC) Chest pain - Reported on admission Labs reviewed Echo Restart home medications as reconciled and as appropriate. Cardiology consult with plan as above Discussed management of the case with care team members EKG interpreted personally and results without evidence of ST segment elevations or depressions. Nosignificant T wave inversions noted. This is a regular rate and rhythm. Patient is on a high risk drug therapy requiring intensive monitoring to prevent drug toxicity: Lasix IV - requiring intensive monitoring of potassium and renal function. Benoit Alvarez MD 02/12/2025 documented in this encounter Consult Notes * Liana Rojo MD - 02/15/2025 9:42 AM EDT GI Consultation: Mona Nettles is a 44 y.o. female asked to see us in consultation by Miguel Angel Ohara MD & Benoit Alvarez MD for evaluation of SAHRA. 44 YO female, unknown to our service, pmhx includes DM, HTN, anxiety, CKD, Factor V Ledien, s/p IVCfilter, on Coumadin. Previous lap band surgery. Patient currently admitted for shortness of breath, she was seen by Cardiology for possible HF. Patient with chronic anemia, iron studies suggestive of SAHRA, GI is being asked to evaluate further. Patient in bed, reports improvement in breathing. She reports she had been told previously by her PCP she was low in Iron but states she was not able to tolerate PO supplement. She reports episode last month of rectal bleeding, after having diarrhea she feels was related to antibiotics. She describes the bleeding as bright red on tissue paper. Bleeding resolved with improvement of diarrhea, no chronic issues of this. She denies any weight loss, no FH of colon cancer. Patient states she has not had a menstrual period in almost 9 years but did have a period the last 2 months with very heavy bleeding due to Coumadin. No previous scopes. Prior to Admission medications Medication Sig Start Date End Date Last Dose Authorizing Provider albuterol (PROVENTIL HFA;VENTOLIN HFA) 90 mcg/actuation Inhl HFA Aerosol Inhaler Inhale 2 Puffs into the lungs as needed. 12/23/24 02/12/2025 Morning Provider, Historical amLODIPine (NORVASC) 5 mg Oral Tablet Take 5 mg by mouth daily. Taking at 11:00 AM Provider, Historical atorvastatin (LIPITOR) 40 mg Oral Tablet Take 40 mg by mouth nightly. 02/11/2025 Bedtime Provider, Historical famotidine (PEPCID) 20 mg Oral Tablet Take 40 mg by mouth nightly. 02/11/2025 Bedtime Provider, Historical folic acid (FOLVITE) 1 mg Oral Tablet Take 1 Tablet by mouth daily. 04/18/24 02/11/2025 Morning Kwaku Soto MD glipiZIDE (GLUCOTROL) 5 mg Oral Tablet Take 1 Tablet by mouth daily (with breakfast). 04/18/24 02/11/2025 Morning Kwaku Soto MD LEVOthyroxine (SYNTHROID) 50 mcg Oral Tablet Take 75 mcg by mouth daily. 02/11/2025 Morning Provider,Historical metFORMIN (GLUCOPHAGE) 500 mg Oral Tablet Take 1 Tablet by mouth 2 times daily (with meals). 01/23/25 02/11/2025 Bedtime Harriet Godinez MD mirabegron (MYRBETRIQ) 50 mg Oral Tablet Sustained Release 24 hr Take 50 mg by mouth daily. 02/11/2025 Morning Provider, Historical oxyCODONE 30 mg Oral tablet,oral only,ext.rel.12 hr Take 30 mg by mouth every 12 hours. 02/11/2025 at11:00 PM Provider, Historical propranoloL (INDERAL) 20 mg Oral Tablet Take 20 mg by mouth every 12 hours. 02/11/2025 Bedtime Provider, Historical QUEtiapine (SEROQUEL) 100 mg Oral Tablet Take 100 mg by mouth 2 times daily. 02/11/2025 Bedtime Provider, Historical rOPINIRole (REQUIP) 2 mg Oral Tablet Take 2 mg by mouth 3 times daily. 02/11/2025 Bedtime Provider, Historical tiZANidine (ZANAFLEX) 4 mg Oral Tablet Take 8 mg by mouth nightly. at bedtime 07/26/22 02/11/2025 Bedtime Provider, Historical torsemide (DEMADEX) 20 mg Oral Tablet Take 20 mg by mouth daily. Patient taking differently: Take 20 mg by mouth daily. taking differently d/t accidents 12/23/24 Taking Differently Provider, Historical traMADoL (ULTRAM) 50 mg Oral Tablet Take 50-100 mg by mouth 4 times daily. 02/11/2025 Bedtime Provider, Historical warfarin (COUMADIN) 5 mg Oral Tablet Take 5-7.5 mg by mouth daily. Takes 7.5 mg MWF and 5 mg on allother days. 02/11/2025 Bedtime Provider, Historical FLUoxetine (PROZAC) 20 mg Oral Capsule Take 60 mg by mouth nightly. Unknown Provider, Historical oxyCODONE (OXYCONTIN) 15 mg Oral tablet,oral only,ext.rel.12 hr Take 30 mg by mouth every 12 hours. Patient not taking: Reported on 02/12/2025 Not Taking Provider, Historical Medication: Current Facility-Administered Medications Medication Dose Route Frequency Last Rate Last Admin acetaminophen (TYLENOL) tablet 650 mg 650 mg Oral Q4H PRN albuterol (PROVENTIL HFA;VENTOLIN HFA) inhaler 2 Puff 2 Puff Inhalation PRN Or albuterol (PROVENTIL) nebulizer solution 2.5 mg 2.5 mg Nebulization PRN amLODIPine (NORVASC) tablet 10 mg 10 mg Oral Daily 10 mg at 02/15/25 08 atorvastatin (LIPITOR) tablet 40 mg 40 mg Oral Nightly 40 mg at 02/14/252103 dextromethorphan-guaiFENesin (ROBITUSSIN DM) 10-100 mg/5 mL syrup 10 mL 10 mL Oral Q4H PRN dextrose 50 % solution 25 mL 25 mL Intravenous PRN docusate sodium (COLACE) capsule 100 mg 100 mg Oral BID PRN famotidine (PEPCID) tablet 40 mg 40 mg Oral Nightly 40 mg at 02/14/252103 ferric gluconate (FERRLECIT) 125 mg in sodium chloride 0.9 % 110 mL ivpb 125 mg Intravenous Daily Stopped at 02/15/25 0920 FLUoxetine (PROzac) capsule 60 mg 60 mg Oral Nightly 60 mg at 02/14/252103 folic acid (FOLVITE) tablet 1 mg 1 mg Oral Daily 1 mg at 02/15/25 08 glucagon (GLUCAGEN) injection 1 mg 1 mg Intramuscular PRN And sterile water injection 1 mL 1 mL Injection PRN 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) - FSBS (Correction Only) Input 1 Each MISCELLANEOUS QID MEALTIME/HS And insulin aspart U-100 (NovoLOG) injection 0-40 Units 0-40 Units Subcutaneous QID MEALTIME/HS 1 Unitsat 02/15/25 0811 LEVOthyroxine (SYNTHROID) tablet 75 mcg 75 mcg Oral DAILY EARLY AM 75 mcg at 02/15/25 0609 miconazole (MICATIN) 2 % powder Topical BID Given at 02/15/25 0900 mirabegron (MYRBETRIQ) ER tablet 50 mg 50 mg Oral Daily 50 mg at 02/15/25 08 ondansetron (ZOFRAN) tablet 4 mg 4 mg Oral Q4H PRN Or ondansetron (ZOFRAN) injection 4 mg 4 mg Intravenous Q4H PRN oxyCODONE (OxyCONTIN) CR tablet 30 mg 30 mg Oral *Q12H 30 mg at 02/14/25 223 propranoloL (INDERAL) tablet 20 mg 20 mg Oral *Q12H 20 mg at 02/14/252235 QUEtiapine (SEROquel) tablet 100 mg 100 mg Oral BID 100 mg at 02/15/25811 rOPINIRole (REQUIP) tablet 2 mg 2 mg Oral TID 2 mg at 02/15/25811 tiZANidine (ZANAFLEX) tablet 8 mg 8 mg Oral Nightly 8 mg at 02/14/252103 traMADoL (ULTRAM) tablet 50-100 mg 50-100 mg Oral TID PRN 100 mg at 02/15/25 08 WARFARIN - PHARMACY-MANAGED THERAPY MISCELLANEOUS Daily Given at 02/12/25 1734 Allergies: No Known Allergies Immunizations: Immunization History Administered Date(s) Administered Moderna SARS-CoV-2 Vaccine 12+ Yrs (Light blue border) 09/08/2020, 10/06/2020 Family history, past medical history, and social history are reviewed as below. Past Medical History: Past Medical History: Diagnosis Date Anemia Anxiety Chronic kidney disease Diabetes mellitus (HCC) Eczema Factor V Leiden Herniation of intervertebral disc between L5 and S1 Hypertension AURELIA (obstructive sleep apnea) uses CPAP Thyroid disease Past Surgical History: Past Surgical History: Procedure Laterality Date ABDOMEN SURGERY lap band BACK SURGERY SECTION IR IVC FILTER PLACEMENT IR PICC INSERTION EQUAL OR > 5 YEARS 12/15/2019 IR PICC INSERTION EQUAL OR > 5 YEARS 12/15/2019 Evonne Jewell PA-C [facility] IR UMBILICAL HERNIA REPAIR 2007 Family History: Family History Problem Relation Age of Onset Heart Attack Mother pt is suspicious about this, thinks clotting disorder Kidney Disease Mother Hypertension Mother Early Father 33 Heart Attack Father 33 Other (Factor V Leiden) Father Social History: Social History Tobacco Use Smoking status: Never Smokeless tobacco: Never Vaping Use Vaping status: Never Used Substance Use Topics Alcohol use: Never Drug use: Never ROS Constitutional: Denies fever,sweats, chills or weight loss Eyes: Denies change in visual acuity HENT: Denies hearing loss or dizziness Respiratory: Denies cough + shortness of breath Cardiovascular: Denies edema or chest pain : Denies dysuria, hematuria, urgency or frequency Musculoskeletal: Denies back pain or joint pain Integument: Denies rash Neurologic: Denies headache, previous stroke, TIA, confusion Endocrine: Denies polyuria or polydipsia Lymphatic: Denies swollen glands Psychiatric: Denies depression or anxiety Hematologic: + previous anemia or easy bruising All other review of systems negative, except for those noted. PHYSICAL EXAM: VITAL SIGNS: BP 132/53 (BP Location: Right arm, Patient Position: Semi Fowlers) Pulse 66 Temp 97.6 ??F (36.4 ??C) (Oral) Resp 18 Ht 5' 7 (1.702 m) Wt (!) 512 lb 6.4 oz (232.4 kg) LMP 12/15/2024 SpO2 98% BMI 80.25 kg/m?? Constitutional: Well developed. Well nourished. Non-toxic appearance. No acute distress. HENT: Normocephalic. Atraumatic. Bilateral external ears normal, Oropharynx moist. No oral exudate.Nose normal. Eyes: No Scleral icterus Cardiovascular: Normal S1 and S2, Normal rhythm, No murmurs, No rubs, No gallops. Thorax & Lungs: Normal breath sounds, No respiratory distress, No wheezing, No chest tenderness. Abdomen: Soft, non-tender. Bowel sounds are normoactive without bruits. No guarding, spasm or rebound. No hepatomegaly. No splenomegaly. No ascites Rectal: Deferred. Skin: Warm, dry. No erythema. No rash. Extremities: Intact distal pulses, No deformity. No edema. Neurologic: Alert & oriented x 3, No Asterixis RESULTS Latest Reference Range & Units 02/14/25 06:54 Ferritin 30 - 150 ng/mL 50 Hct 34.0 - 45.0 % 29.4 (L) Iron 30 - 160 mcg/dL 20 (L) TIBC 250 - 400 mcg/dL 267 Transferrin 200 - 360 mg/dL 191 (L) Transferrin Saturation 20 - 50 % 7 (L) Lab Results Component Value Date ALT 12 02/15/2025 AST 17 02/15/2025 ALKPHOS 117 02/15/2025 BILIDIR 0.3 05/30/2024 PROT 6.2 (L) 02/15/2025 INR 2.88 (H) 02/15/2025 LIPASE 66 (H) 12/15/2019 Lab Results Component Value Date WBC 6.8 02/14/2025 HGB 8.8 (L) 02/14/2025 HCT 29.4 (L) 02/14/2025 MCV 74.2 (L) 02/14/2025 PLT 236 02/14/2025 Lab Results Component Value Date CREATININE 1.29 02/15/2025 BUN 19 02/15/2025 NA 137 02/15/2025 K 4.1 02/15/2025 CL 102 02/15/2025 CO2 24 02/15/2025 IMAGES No results found. ASSESSMENT 1. Chronic microcytic anemia ; studies suggestive of SAHRA -ferritin 50 / iron 20 / trans saturation 7% -No previous scopes 2. Shortness of breath/ chest pain; improving -Diuretic adjustments per Cardiology 3. Hx Factor V Leiden, on Coumadin -INR 2.88 -Hx IVC filter 4. Hx lap band PLAN 1. Low residue diet, bowel regimen 2. IV iron while IP 3. Consider EGD/Colonoscopy once INR <1.5; OK for heparin gtt 1. The patient indicates understanding of these issues and agrees with the plan. 2. I reviewed the patient's medical information and medical history. 3. I have reviewed the past medical, family, and social history sections including the medications and allergies listed in the above medical record. Electronically signed by: Fernanda Atkins APRN, 02/15/2025 9:43 AM I have evaluated and examined the patient along with the Nurse Practitioner and agree with the documentation and plan aside from the changes noted below. Sitting comfortably in bedside chair eating lunch. Very nervous about possible scopes. Exam: CONSTITUTIONAL: +morbidly obese, no apparent distress, and appears stated age HEENT: AT/NC, b/l nares patent, MMM, b/l external ears normal RESPIRATORY: No increased work of breathing, no cough GI: +obese MUSCULOSKELETAL: There is no redness, warmth, or swelling of the visualized joints. SKIN: Normal skin color, texture, turgor, no jaundice. NEUROLOGIC: No tremors or seizure activity noted. Plan: Agree with plan as above. Will recommend hold warfarin/bridge with lheparin gtt as necessary ([facility]). Will plan for EGD/Colon to eval anemia. Will follow peripherally until INR <1.5,at which point we will place orders for prep and procedures. Please call with any questions or concerns in meantime. Liana Rojo MD SEP Gastroenterology 02/15/2025 8:36 PM * Mustapha Piper MD - 02/12/2025 9:39 AM EDTAssociated Order(s): IP CONSULT TO CARDIOLOGY Cardiology Consultation Note [facility] Attending Physician: Benoit Alvarez MD Requesting Physician: Referral,Self Chief Complaint: Chief Complaint Patient presents with Shortness of Breath SOB currently on Neb with Duoneb and albuterol. Being treated HPI: Mona Nettles is a 44 y.o. year old female with a past medical history of HTN, HLD, DM, chronic lymphedema, AURELIA, Factor V Leiden, PE, fatty liver, back pain, GERD, thyroid disease, anemia, anxiety who presented on 02/12/2025 with shortness of breath and chest pain. Cardiology is consulted on 02/12/25 for chest pain. Discharged from hospital to [facility] after PNA and cellulitis. Breathing got better than started getting worse the past 2 weeks. Also with chest tightness with activity. Chronic swelling that she isnot sure if any worse. Some difficulty breathing in bed at home the past 3 days. Lightheadedness getting up quickly. Palpitations with activity. Patient denies syncope. REVIEW OF SYSTEMS: Limited as above. Past Medical/Surgical History: Past Medical History: Diagnosis Date Anemia Anxiety [...] PA-C EDG IR UMBILICAL HERNIA REPAIR 2007 Past Social History: Social History Socioeconomic History Marital status: Spouse name: None Number of children: None Years of education: None Highest education level: None Tobacco Use Smoking status: Never Smokeless tobacco: Never Vaping Use Vaping status: Never Used Substance and Sexual Activity Alcohol use: Never Drug use: Never Social Drivers of Health Financial Resource Strain: Medium Risk (01/14/2025) Overall Financial Resource Strain (CARDIA) Difficulty of Paying Living Expenses: Somewhat hard Food Insecurity: Food Insecurity Present (01/14/2025) Hunger Vital Sign Worried About Running Out of Food in the Last Year: Sometimes true Ran Out of Food in the Last Year: Never true Transportation Needs: No Transportation Needs (01/14/2025) [facility] IP Transportation In the past 12 months, has lack of reliable transportation kept you from medical appointments, meetings, work or from getting things needed for daily living?: No Physical Activity: Inactive (01/14/2025) Exercise Vital Sign Days of Exercise per Week: 0 days Minutes of Exercise per Session: 0 min Stress: No Stress Concern Present (01/14/2025) [employer] [place] [employer] - Occupational Stress Questionnaire Feeling of Stress : Only a little Received from [facility] Family and Community Support Received from [facility] Abuse Screen Received from [facility] Housing Stability Past Family History: Family History Problem Relation Age of Onset Heart Attack Mother pt is suspicious about this, thinks clotting disorder Kidney Disease Mother Hypertension Mother Early Father 33 Heart Attack Father 33 Other (Factor V Leiden) Father Allergies: No Known Allergies HOSPITAL MEDICATIONS: atorvastatin 40 mg Oral Nightly famotidine 40 mg Oral Nightly FLUoxetine 60 mg Oral Nightly folic acid 1 mg Oral Daily 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) - FSBS (Correction Only) Input 1 Each MISCELLANEOUS QID MEALTIME/HS And insulin aspart (NovoLOG) - Correction - Calculator 0-40 Units Subcutaneous QID MEALTIME/HS LEVOthyroxine 75 mcg Oral DAILY EARLY AM mirabegron 50 mg Oral Daily oxyCODONE 30 mg Oral *Q12H propranoloL 20 mg Oral *Q12H QUEtiapine 100 mg Oral BID rOPINIRole 2 mg Oral TID tiZANidine 8 mg Oral Nightly torsemide 20 mg Oral Daily traMADoL 50-100 mg Oral QID warfarin - pharmacy-managed therapy MISCELLANEOUS Daily acetaminophen, albuterol, dextromethorphan-guaiFENesin, dextrose, docusate sodium, glucagon ANDsterile water, ondansetron OR ondansetron, sodium chloride 0.9%, sodium chloride 0.9% PHYSICAL EXAMINATION: Vitals: 02/12/25 0500 02/12/25 0509 02/12/25 0528 02/12/25 0903 BP: 139/63 151/67 BP Location: Left arm Left arm Patient Position: Semi Fowlers Lying right side Pulse: 65 67 71 Resp: (!) 23 20 19 Temp: 97.4 ??F (36.3 ??C) 97.7 ??F (36.5 ??C) TempSrc: Oral Oral SpO2: 100% 100% Weight: (!) 525 lb 12.8 oz (238.5 kg) Height: 5' 7 (1.702 m) Body mass index is 82.35 kg/m??. Wt Readings from Last 3 Encounters: 02/12/25 (!) 525 lb 12.8 oz (238.5 kg) 01/13/25 (!) 511 lb (231.8 kg) 12/31/24 (!) 509 lb 9.6 oz (231.2 kg) Intake/Output Summary (Last 24 hours) at 02/12/2025 0939 Last data filed at 02/12/2025 0606 Gross per 24 hour Intake 0 ml Output 0 ml Net 0 ml CONSTITUTIONAL: No apparent distress. Alert and oriented. EYES: Anicteric sclerae, extraoccular muscles intact. EARS, NOSE, MOUTH, THROAT: Oropharynx is moist. Face is atraumatic. NECK: Supple, no masses, no lymphadenopathy. RESPIRATORY: Respiratory effort is normal. Lungs are clear without wheezes or rales. CARDIOVASCULAR: Rate as above. Rhythm is regular. Normal S1 and S2. No murmurs, rubs, gallops. Visible jugular venous distension. Mild to moderate lower extremity edema to the mid smiley. Radial pulsesare 2+ bilaterally. Normal carotid upstroke. No carotid bruits. GASTROINTESTINAL: Bowel sounds are normal. Hepatomegaly is absent. Abdomen is soft, nontender without guarding or rebound tenderness. MUSCULOSKELETAL: Cyanosis is absent. SKIN: Rashes are visually absent. Skin intact. NEUROLOGICAL: Cranial nerves are grossly intact. Speech is normal. PSYCHIATRIC: Mood is normal. Affect is normal. LABORATORY AND STUDIES: Lab Results Component Value Date NA 139 02/12/2025 NA 139 01/21/2025 NA 137 01/20/2025 K 3.7 02/12/2025 K 4.6 01/21/2025 K 4.2 01/20/2025 BUN 10 02/12/2025 BUN 22 (H) 01/21/2025 BUN 24 (H) 01/20/2025 CALCIUM 7.7 (L) 02/12/2025 CL 105 02/12/2025 CO2 22 02/12/2025 CREATININE 1.08 02/12/2025 CREATININE 1.62 (H) 01/21/2025 CREATININE 1.61 (H) 01/20/2025 GLU 175 (H) 02/12/2025 Lab Results Component Value Date WBC 8.4 02/12/2025 WBC 8.3 01/21/2025 WBC 8.2 01/18/2025 HGB 9.5 (L) 02/12/2025 HGB 8.2 (L) 01/21/2025 HGB 8.3 (L) 01/18/2025 HCT 31.6 (L) 02/12/2025 HCT 28.9 (L) 01/21/2025 HCT 28.5 (L) 01/18/2025 MCV 73.5 (L) 02/12/2025 PLT 271 02/12/2025 PLT 307 01/21/2025 PLT 286 01/18/2025 No results found for: TROPT Lab Results Component Value Date INR 3.15 (H) 02/12/2025 INR 3.14 (H) 01/26/2025 INR 2.67 (H) 01/25/2025 Lab Results Component Value Date CHOLESTEROL 148 08/31/2020 CHOLESTEROL 134 12/15/2019 HDL 44 08/31/2020 HDL 32 (L) 12/15/2019 LDLCALC 82 08/31/2020 LDLCALC 72 12/15/2019 TRIG 109 08/31/2020 TRIG 151 (H) 12/15/2019 Lab Results Component Value Date ALT 10 05/30/2024 AST 16 05/30/2024 ALKPHOS 115 05/30/2024 Lab Results Component Value Date HGBA1C 6.8 (H) 06/19/2024 HGBA1C 7.6 (H) 04/14/2024 HGBA1C 6.8 (H) 12/15/2019 Lab Results Component Value Date TSH 4.940 (H) 06/18/2024 TSH 1.970 08/31/2020 Lab Results Component Value Date BNP 2,038 (H) 02/12/2025 BNP 1,267 (H) 01/13/2025 Imaging: Reviewed CXR and Chest CT report. EC02/12/25 sinus 66. Reviewed by me. Telemetry: sinus 76; 60s-80s, no arrhythmias. Reviewed by me. Previous Cardiac Studies: None on file. PROBLEM LIST: Chest pain Shortness of breath ?Acute unspecified heart failure Demand ischemia Chronic lymphedema Hypertension Hyperlipidemia Diabetes Family history of IA ASSESSMENT AND PLAN: Mona Nettles is a 44 y.o. year old female with a past medical history of HTN, HLD, DM, chronic lymphedema, AURELIA, Factor V Leiden, PE, fatty liver, back pain, GERD, thyroid disease, anemia, anxiety who presented on 02/12/2025 with shortness of breath and chest pain. Cardiology is consulted on 02/12/25 for chest pain. 1. Chest pain, ?acute heart failure. Here initially with worsening shortness of breath x 1 week after recent admission for PNA and abdominal cellulitis and subsequent rehab stay. Also chest pain. On my initial assessment she reports worsened dyspnea on exertion, some exertional chest discomfort and possible PND/orthopnea recently. Shereports chronic lymphedema. Initial troponins 31, 27. Initial NTproBNP 2037. Initial Cr 1.08, Na 139, K 3.7, Ca 7.7, INR 3.1, WBC 8.4, Hgb 9.5, Plt 271. Chest CT with essentially resolved right lung opacities, no coronary artery calcifications. CXR clear. ECG sinus, non-ischemic. History of chronic lymphedema. No cardiac history. None on file. Home cardiac related meds include lipitor, propranolol, torsemide, coumadin. On exam some JVD and mild to moderate non-pitting swelling to the mid-shins. Blood pressure 151/67.Telemetry sinus without arrhythmia. Current cardiac related meds include lipitor, propranolol, torsemide, coumadin. Impression is here with chest discomfort with some typical features but in stable pattern. Also worsened shortness of breath after having been recently treated for PNA. Chest CT here shows near resolution of PNA. NTproBNP elevated. Troponin elevated but not in ACS pattern and probably demand ischemia. Etiology of shortness of breath probably multifactorial related to recent PNA, obesity, AURELIA and maybe some degree of heart failure. Plan: - Stop torsemide. Start IV lasix 40 bid. - Echo. - Eventual ischemic eval to be considered pending echo and diuresis. Probably nuclear stress Friday. Will follow along. Discussed with the patient. Thank you for allowing me to participate in this patient's care. Please do not hesitate to contact me with any questions Mustapha Piper MD [facility] 02/12/2025 documented in this encounter Nursing Notes * Kerry Arellano RN - 02/18/2025 12:10 PM EDT EKG reviewed by Dr. Looney (anesthesiology) who relays ok for patient to return to her inpatientroom. documented in this encounter ED Notes * [place], Jennifer J, - 02/12/2025 1:12 AM EDT Images from the original note were not included. CHIEF COMPLAINT Chief Complaint Patient presents with Shortness of Breath SOB currently on Neb with Duoneb and albuterol. Being treated HPI Mona Nettles is a 44 y.o. female with history significant for morbid obesity, chronic chest pain, sleep apnea, clotting disorder on warfarin, recent admission for pneumonia and abdominal wall cellulitis who presents for shortness of breath. Patient reports worsening shortness of breath over 1 week. She states that she struggles to breathewith any minor activity and cannot move. Additionally she has been been experiencing chest pressuretoday. All symptoms intensified today and she called 911. She states she has an inhaler at home that she uses that does not seem to help at all. She states she was given a nebulizer prehospital whichdid seem to help. She has not had no audible wheezing and denies history of lung disease. She is nolonger on antibiotics. [facility] she doesn't want to use same mask/hose as when she had pneumonia. No fevers, chills. Mild persistent dry cough. REVIEW OF SYSTEMS See HPI for pertinent positives and negative. Otherwise reviewed and noncontributory. PAST MEDICAL HISTORY Past Medical History: Diagnosis Date Anemia Anxiety Chronic kidney disease Diabetes mellitus (HCC) Eczema Factor V Leiden Herniation of intervertebral disc between L5 and S1 Hypertension AURELIA (obstructive sleep apnea) uses CPAP Thyroid disease FAMILY HISTORY Family History Problem Relation Age of Onset Heart Attack Mother pt is suspicious about this, thinks clotting disorder Kidney Disease Mother Hypertension Mother Early Father 33 Heart Attack Father 33 Other (Factor V Leiden) Father SOCIAL HISTORY Social History Socioeconomic History Marital status: Spouse name: None Number of children: None Years of education: None Highest education level: None Tobacco Use Smoking status: Never Smokeless tobacco: Never Vaping Use Vaping status: Never Used Substance and Sexual Activity Alcohol use: Never Drug use: Never Social Drivers of Health Financial Resource Strain: Medium Risk (01/14/2025) Overall Financial Resource Strain (CARDIA) Difficulty of Paying Living Expenses: Somewhat hard Food Insecurity: Food Insecurity Present (01/14/2025) Hunger Vital Sign Worried About Running Out of Food in the Last Year: Sometimes true Ran Out of Food in the Last Year: Never true Transportation Needs: No Transportation Needs (01/14/2025) [facility] IP Transportation In the past 12 months, has lack of reliable transportation kept you from medical appointments, meetings, work or from getting things needed for daily living?: No Physical Activity: Inactive (01/14/2025) Exercise Vital Sign Days of Exercise per Week: 0 days Minutes of Exercise per Session: 0 min Stress: No Stress Concern Present (01/14/2025) [employer] [place] [employer] - Occupational Stress Questionnaire Feeling of Stress : Only a little Received from [facility] Family and Community Support Received from [facility] Abuse Screen Received from [facility] Housing Stability SURGICAL HISTORY Past Surgical History: Procedure Laterality Date ABDOMEN SURGERY lap band BACK SURGERY SECTION IR IVC FILTER PLACEMENT IR PICC INSERTION EQUAL OR > 5 YEARS 12/15/2019 IR PICC INSERTION EQUAL OR > 5 YEARS 12/15/2019 Evonne Jewell PA-C EDG IR UMBILICAL HERNIA REPAIR 2007 CURRENT MEDICATIONS No current facility-administered medications for this encounter. Current Outpatient Medications: albuterol (PROVENTIL HFA;VENTOLIN HFA) 90 mcg/actuation Inhl HFA Aerosol Inhaler, Inhale 2 Puffs into the lungs as needed., Disp: , Rfl: atorvastatin (LIPITOR) 40 mg Oral Tablet, Take 40 mg by mouth nightly., Disp: , Rfl: famotidine (PEPCID) 20 mg Oral Tablet, Take 40 mg by mouth nightly., Disp: , Rfl: FLUoxetine (PROZAC) 20 mg Oral Capsule, Take 60 mg by mouth nightly., Disp: , Rfl: folic acid (FOLVITE) 1 mg Oral Tablet, Take 1 Tablet by mouth daily., Disp: 30 Tablet, Rfl: 0 glipiZIDE (GLUCOTROL) 5 mg Oral Tablet, Take 1 Tablet by mouth daily (with breakfast)., Disp: 30 Tablet, Rfl: 0 LEVOthyroxine (SYNTHROID) 50 mcg Oral Tablet, Take 75 mcg by mouth daily., Disp: , Rfl: metFORMIN (GLUCOPHAGE) 500 mg Oral Tablet, Take 1 Tablet by mouth 2 times daily (with meals)., Disp: , Rfl: mirabegron (MYRBETRIQ) 50 mg Oral Tablet Sustained Release 24 hr, Take 50 mg by mouth daily., Disp:, Rfl: oxyCODONE (OXYCONTIN) 15 mg Oral tablet,oral only,ext.rel.12 hr, Take 15 mg by mouth every 12 hours., Disp: , Rfl: propranoloL (INDERAL) 20 mg Oral Tablet, Take 20 mg by mouth every 12 hours., Disp: , Rfl: QUEtiapine (SEROQUEL) 100 mg Oral Tablet, Take 100 mg by mouth 2 times daily., Disp: , Rfl: rOPINIRole (REQUIP) 2 mg Oral Tablet, Take 2 mg by mouth 3 times daily., Disp: , Rfl: tiZANidine (ZANAFLEX) 4 mg Oral Tablet, Take 8 mg by mouth nightly. at bedtime, Disp: , Rfl: torsemide (DEMADEX) 20 mg Oral Tablet, Take 20 mg by mouth daily., Disp: , Rfl: traMADoL (ULTRAM) 50 mg Oral Tablet, Take 50-100 mg by mouth 4 times daily., Disp: , Rfl: warfarin (COUMADIN) 5 mg Oral Tablet, Take 5-7.5 mg by mouth daily. Takes 7.5 mg MWF and 5 mg on all other days., Disp: , Rfl: ALLERGIES No Known Allergies PHYSICAL EXAM VITAL SIGNS: BP 135/69 (BP Location: Right arm, Patient Position: Semi Fowlers) Pulse 75 Temp 98.2 ??F (36.8 ??C) (Oral) Resp 20 LMP 12/15/2024 SpO2 97% Constitutional: Well developed, Well nourished, No acute distress, Non-toxic appearance. HENT: Normocephalic, Atraumatic, Bilateral external ears normal, Oropharynx moist, No oral exudates, Nose normal. Eyes: Conjunctiva normal, No discharge. Neck: Normal range of motion, No tenderness, Supple, No stridor. Cardiovascular: Normal heart rate, Normal rhythm, No murmurs, No rubs, No gallops. Thorax & Lungs: Diminished breath sounds, No respiratory distress, No wheezing, Abdomen: Bowel sounds normal, Soft, No tenderness, No masses, No pulsatile masses. Skin: Warm, Dry, No erythema, No rash. Extremities: Intact distal pulses, No edema, No tenderness, No cyanosis, No clubbing. Neurologic: Alert & oriented x 3, No focal deficits noted. RADIOLOGY/PROCEDURES Results for orders placed or performed during the hospital encounter of 02/12/25 XR CHEST AP PORTABLE Narrative XR CHEST AP PORTABLE, 02/12/2025 1:53 AM CLINICAL HISTORY: -SOB recent PNA COMPARISON: June 17, 2024 PROCEDURE COMMENTS: AP portable technique. FINDINGS: Limited study due to patient bodily habitus. Stable cardiac and aortic configuration. No acute failure, pneumonia, or effusion. Grossly stable appearance of the lungs. Impression No acute cardiopulmonary process. - Note: Radiology results need to be interpreted within a comprehensive clinical context. If you have questions about the radiology report, please contact the office of the ordering clinician. CBC WITH DIFF Result Value Ref Range WBC 8.4 3.7 - 10.3 x10(3)/mcL RBC 4.30 3.90 - 5.20 x10(6)/mcL Hgb 9.5 (L) 11.2 - 15.7 g/dL Hct 31.6 (L) 34.0 - 45.0 % MCV 73.5 (L) 80.0 - 100.0 fL MCH 22.1 (L) 26.0 - 34.0 pg MCHC 30.1 (L) 30.7 - 35.5 g/dL RDW 18.8 (H) <=14.9 % Platelet 271 155 - 369 x10(3)/mcL MPV 10.5 8.8 - 12.5 fL Neut Percent 79.8 % Imm Gran% 0.6 % Lymph Percent 13.6 % [place] Percent 3.1 % Eos Percent 2.5 % Baso Percent 0.4 % Neut # 6.7 (H) 1.6 - 6.1 x10(3)/mcL IMMGRAN# 0.1 0.0 - 0.1 x10(3)/mcL Lymph # 1.1 (L) 1.2 - 3.9 x10(3)/mcL [place] # 0.3 0.3 - 0.9 x10(3)/mcL Eos# 0.2 0.0 - 0.5 x10(3)/mcL Baso # 0.0 0.0 - 0.1 x10(3)/mcL PT / INR Result Value Ref Range PT 37.1 (H) 10.5 - 13.6 second(s) INR 3.15 (H) 0.91 - 1.18 (ratio) BLOOD GAS, VENOUS Result Value Ref Range pH Venous 7.38 7.32 - 7.42 pH pCO2 Venous 42 41 - 51 mmHg pO2 Venous 40 25 - 40 mmHg Base Excess David -0.3 mmol/L Hco3 Venous 24.9 24.0 - 28.0 mmol/L CO2 Total David 24 (L) 25 - 29 mmol/L O2 Sat. Venous 74.2 (H) 40.0 - 70.0 % Inspired O2 95 TROPONIN-T HIGH SENSITIVITY BASELINE W/ REFLEX Result Value Ref Range bg-[id number]-C 31 (H) <14 ng/L Narrative Ingestion of tom doses of biotin (>5 mg/day) taken within 8 hours of drawing blood sample can interfere with this immunoassay test. BASIC METABOLIC PANEL Result Value Ref Range Sodium 139 136 - 145 mmol/L Potassium 3.7 3.5 - 5.0 mmol/L Chloride 105 98 - 107 mmol/L Total CO2 22 22 - 29 mmol/L Anion Gap 12 7 - 16 mmol/L Calcium 7.7 (L) 8.6 - 10.4 mg/dL Glucose Lvl 175 (H) 70 - 99 mg/dL BUN 10 6 - 20 mg/dL Creatinine 1.08 0.51 - 1.30 mg/dL eGFR (CKD-EPIcr 2020) 65 >=60 mL/min/1.73 m2 TROPONIN-T HIGH SENSITIVITY 2HR Result Value Ref Range yk-tVriwiijj-C 2HR 27 (H) <14 ng/L hs-cTnT 2Hr Delta from Baseline -4 <4 ng/L Narrative Ingestion of tom doses of biotin (>5 mg/day) taken within 8 hours of drawing blood sample can interfere with this immunoassay test. NT PROBNP Result Value Ref Range NT Pro-BNP 2,038 (H) <=192 pg/mL Narrative An NT pro-BNP level less than 300 pg/mL in any patient, regardless of age, effectively rules out acute CHF with a 99% negative predictive value. Ingestion of tom doses of biotin (>5 mg/day) taken within 8 hours of drawing blood sample can interfere with this immunoassay test. ECG AND WAVEFORMS - TELEMETRY Result Value Ref Range ECG INTERPRET NSR Narrative NEW ADMIT/JF ME 0.20 QRS 0.09 RR 0.91 QT 0.46 QTc 0.48 See Clinical Report link for waveform capture EK EKG 12 LEAD Narrative NOTICE: Preliminary tracing available for review; Final Interpretation by physician to follow. Impression 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 (See chart for details) Medications sodium chloride 0.9% syringe 5-10 mL (has no administration in time range) sodium chloride 0.9% IV line flush 50 mL (has no administration in time range) acetaminophen (TYLENOL) tablet 650 mg (has no administration in time range) docusate sodium (COLACE) capsule 100 mg (has no administration in time range) ondansetron (ZOFRAN) tablet 4 mg (has no administration in time range) Or ondansetron (ZOFRAN) injection 4 mg (has no administration in time range) dextromethorphan-guaiFENesin (ROBITUSSIN DM) 10-100 mg/5 mL syrup 10 mL (has no administration in time range) dextrose 50 % solution 25 mL (has no administration in time range) glucagon (GLUCAGEN) injection 1 mg (has no administration in time range) And sterile water injection 1 mL (has no administration in time range) 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) - FSBS (Correction Only) Input (has no administration in time range) And insulin aspart U-100 (NovoLOG) injection 0-40 Units (has no administration in time range) WARFARIN - PHARMACY-MANAGED THERAPY (has no administration in time range) albuterol (PROVENTIL HFA;VENTOLIN HFA) inhaler 2 Puff (has no administration in time range) famotidine (PEPCID) tablet 40 mg (has no administration in time range) atorvastatin (LIPITOR) tablet 40 mg (has no administration in time range) FLUoxetine (PROzac) capsule 60 mg (has no administration in time range) folic acid (FOLVITE) tablet 1 mg (has no administration in time range) LEVOthyroxine (SYNTHROID) tablet 75 mcg (75 mcg Oral Given 02/12/25 0634) QUEtiapine (SEROquel) tablet 100 mg (has no administration in time range) rOPINIRole (REQUIP) tablet 2 mg (has no administration in time range) morphine (MS CONTIN) CR tablet 15 mg (has no administration in time range) History was obtained from patient. Available history in chart was reviewed. Patient's primary complaint is acute shortness of breath. Differential diagnosis includes congestive heart failure, ACS, pneumonia. Low suspicion for PE given appropriate anticoagulation. CT angiogram a few weeks ago showed no PE, but pneumonia. [facility] She reports worsening shortness of breath since going home. She states she is having constant chest pressure as well as struggling for air with minimal activity. On arrival her oxygen saturations are 98% on room air and her heart rate is in the 60s. She appearsto be in no acute distress. Chest x-ray was obtained and is negative for any infiltrate, pneumothorax. Laboratory studies were obtained. She has a chronic but stable anemia. Her INR is appropriately therapeutic at 3.15. No leukocytosis. Venous gas without acidosis or CO2 retention. Electrolytes reassuring with the exception of mild hypocalcemia. First troponin is mildly elevated as is natruretic peptide. Second troponin decreased and inconsistent with ACS. Patient maintained she feels like she did when she had pneumonia. Clinically she is well-appearing but high risk and obesity limits evaluation particularly x- ray. CT imaging ordered for further evaluate of her dyspnea but patient requires specific accommodations and CT with changing to a bariatric table and radiology requesting additional time to prepare. Discussed with hospitalist [x] Due to patient clinical condition and physical complaints patient was placed on continuous telemetry monitoring. [] I reviewed and summarized outside records/external notes: [x] Chronic medical conditions affecting care (see chart for details). [x] Differential considerations as above [x] Tests ordered to further evaluate the patient and narrow the differential diagnosis as above. [x] I independently ordered, reviewed and interpreted the EKG per above and compared it to an old one when available. [x] I independently ordered, reviewed and interpreted the laboratory work-up which was remarkable for pertinent labs discussed in the ED course and/or in the lab section. [x] I independently ordered, reviewed and interpreted the radiology image(s) [] Tests considered but not ordered: [] CODE STATUS Decision has been discussed or reviewed - [] Smoking cessation: Patient's tobacco use was dicussed, and willingness to quit assessed. Advisedimpacts of smoking and methods/skills for cessation with resources. SHARED DECISION MAKING [x] Discussed results, diagnosis and plan with patient and/or family. Using shared decision making with the patient and/or family at the bedside, as well as social determinants of health that might impact their care and risks and benefits regarding admission to the hospital or outpatient management, the decision was made for disposition. [] Education was provided regarding there medical condition/presenting symptoms, my recommended testing during the ED visit, treatment and dispo, home treatments/therapies and ED return precautions. Patient discharged home. [] I have discussed recommendations for admission (due to need for escalation of care) with the patient and/or family. All labs and testing results were discussed with the patient and/or family. We have discussed benefits of admission and risk of being discharged home. Patient and/or family agrees with the plan of care and admission. SOCIAL DETERMINANTS OF HEALTH Social Determinants of Health significantly impacting pt treatment and diagnosis [] Tobacco Use [] Alcohol Use [] Financial Resource Strain [] Food Insecurity [] Transportation Needs [] Physical Activity [] Stress [] Intimate Partner Violence [] Depression [] Housing Stability FINAL IMPRESSION 1. REYES (dyspnea on exertion) 2. Chest pressure Condition: Stable In cases where narcotics are prescribed, LUIS report was obtained, reviewed, and made part of record. After examining available information, and risks of prescribing or dispensing controlled substances was explained to the patient (including non-treatment or other treatment), it is considered medically appropriate to administer narcotics as prescribed. Critical care was administered to the patient for 0 minutes. This time excludes procedure time. This chart was completed using voice recognition technology and may contain unintended errors Jennifer Costello DO 02/12/25 0654 documented in this encounter Miscellaneous Notes * Utilization Review Notes - Jennifer Ritter RN - 02/16/2025 2:46 PM EDT Cont stay review on tele unit Inpt admit order inpt ev management Pt admitted as obs on 02/12, changed to inpatient on 02/13 02/15--per GI note-- ASSESSMENT 1. Chronic microcytic anemia ; studies suggestive of SAHRA -ferritin 50 / iron 20 / trans saturation 7% -No previous scopes 2. Shortness of breath/ chest pain; improving -Diuretic adjustments per Cardiology 3. Hx Factor V Leiden, on Coumadin -INR 2.88 -Hx IVC filter 4. Hx lap band PLAN 1. Low residue diet, bowel regimen 2. IV iron while IP 3. Consider EGD/Colonoscopy once INR <1.5; OK for heparin gtt Dc plan: sw following for dc needs * Query Response Document - Benoit Alvarez MD - 02/15/2025 8:29 AM EDT [facility] CDI / HIM Coding Query Documentation PATIENT: MONA NETTLES : 1980 ADMIT DATE: 02/12/2025 1:19 AM DISCH DATE: RESPONDING PROVIDER #: [id number] PROVIDER QUERY RESPONSE TEXT: Acute diastolic CHF CDI / HIM Coding QUERY TEXT: CDI Query To view the encounter for this patient, click the patient's name highlighted in blue. The purpose of this query is to clarify the type and/or acuity of a documented diagnosis. Admitted with: REYES, chest pressure (ED 02/12) Treatment included: Lasix IV Please indicate or specify the acuity and type of a documented diagnosis: The patient's clinical indicators include: 02/12 H/P: Acute congestive heart failure (HCC) 02/12: ECHO: Left ventricular function is normal with an estimated ejection fraction of 60-65%. 02/12: BNP: 2,038 PLEASE ALSO DOCUMENT DIAGNOSIS IN PROVIDER NOTES AND D/C SUMMARY This electronic query and response is a permanent part of the medical record. Please do not update the Problem List as your response. The Problem List is dynamic and is not a permanent part of this Date of Service. An unanswered query is considered a non-response. Thank you for your assistance. (For questions or assistance please contact Garett More, [facility] [employer] Developer [phone]) Options provided: -- Acute systolic CHF -- Acute diastolic CHF -- Acute systolic and diastolic CHF -- Other - I will add my own diagnosis -- Disagree - Not applicable / Not valid Query created by: Rylee Badillo on 02/14/2025 9:48 AM Electronically signed by: Benoit Alvarez MD 02/15/2025 8:29 AM * Utilization Review Notes - Tere Moctezuma RN - 02/13/2025 12:16 PM EDT CONTINUED STAY REVIEW ON TCU ADMITTED OBSERVATION ON 02/12, CHANGED TO INPATIENT ON 02/13 INPATIENT ORDER ON CHART, EM REYES (dyspnea on exertion) - Initially thought to be pneumonia is more than likely heart failure Echo Labs reviewed Restart home medications as reconciled and as appropriate. Cardiology consulted; noted plan for diuresis and eventual ischemic evaluation Chest pressure Acute congestive heart failure (HCC) Demand ischemia (HCC) Chest pain - Reported on admission Labs reviewed Echo Restart home medications as reconciled and as appropriate. Cardiology consult with plan as above PER CARDIOLOGY: Chest pain -trops flat and declining not in pattern with ACS 31, 27 -EKG SR without acute ischemia noted -statin -Echo without WMA EF stable Acute HF? -BNP 2037 -Echo EF 60-65% Left ventricular segmental wall motion is grossly normal, however endocardial definition is limited. -Lasix/ propanolol Plan: Continue diuresis I/O -6489 ml since admission Consider ischemic evaluation tomorrow... Stress? Replace K 3.4 Cr bump overnight IV LASIX PT Recommendation Moderate frequency, moderate intensity five days a week therapy recommended. CC FOLLOWING FOR DC NEEDS * Utilization Review Notes - Tere Moctezuma RN - 02/12/2025 11:11 AM EDT ADMITTED OBSERVATION ON 02/12 ADMIT TO TCU FOR SOB, CHEST PRESSURE OBS ORDER ON CHART, EM WORSENING SOB OVER 1 WEEK RECENT PNA DIAGNOSIS, NO LONGER ON ABX RR 34, 29, 21, 31, 26, 23, 23 IV LASIX BID PRO-BNP 2037 ECHO PENDING CC FOLLOWING FOR DC NEEDS CARDIOLOGY CONSULT CC FOLLOWING FOR DC NEEDS documented in this encounter Plan of Treatment Pending Results Name Type Priority Associated Diagnoses Date /Time ECG AND WAVEFORMS - TELEMETRY Point of Care Testing Routine 02/16/2025 9:38 PM EDT ECG AND WAVEFORMS - TELEMETRY Point of Care Testing Routine 02/17/2025 9:01 PM EDT ECG AND WAVEFORMS - TELEMETRY Point of Care Testing Routine 02/18/2025 7:00 AM EDT documented as of this encounter Procedures Procedure Name Priority Date/Time Associated Diagnosis Comments GLUCOSE METER POC Routine 02/18/2025 5:15 PM EDT XR CHEST AP PORTABLE MADELINE 02/18/2025 3:18 PM EDT GLUCOSE METER POC Routine 02/18/2025 1:22 PM EDT EK EKG 12 LEAD STAT 02/18/2025 11:36 AM EDT ESOPHAGOGASTRODUODENOSCOPY (EGD) Routine 02/18/2025 11:18 AM EDT Other iron deficiency anemia COLONOSCOPY Routine 02/18/2025 11:18 AM EDT Other iron deficiency anemia GLUCOSE METER POC Routine 02/18/2025 8:20 AM EDT PT / INR Early AM 02/18/2025 7:05 AM EDT HUMAN CHORIONIC GONADOTROPIN QUANTITATIVE Routine 02/18/2025 7:05 AM EDT COMPREHENSIVE METABOLIC PANEL Timed 02/18/2025 7:05 AM EDT ECG AND WAVEFORMS - TELEMETRY Routine 02/18/2025 7:00 AM EDT HEPARIN ANTI-XA, UNF Timed 02/18/2025 12:59 AM EDT ECG AND WAVEFORMS - TELEMETRY Routine 02/17/2025 9:01 PM EDT GLUCOSE METER POC Routine 02/17/2025 8:25 PM EDT GLUCOSE METER POC Routine 02/17/2025 5:38 PM EDT IP CONSULT TO PHARMACY Routine 3:46 PM EDT GLUCOSE METER POC Routine 02/17/2025 12:03 PM EDT XR CHEST AP PORTABLE STAT 02/17/2025 12:02 PM EDT GLUCOSE METER POC Routine 02/17/2025 8:02 AM EDT ECG AND WAVEFORMS - TELEMETRY Routine 02/17/2025 7:13 AM EDT COMPREHENSIVE METABOLIC PANEL Timed 02/17/2025 5:28 AM EDT PT / INR Early AM 02/17/2025 5:26 AM EDT ECG AND WAVEFORMS - TELEMETRY Routine 02/16/2025 9:38 PM EDT GLUCOSE METER POC Routine 02/16/2025 8:39 PM EDT GLUCOSE METER POC Routine 02/16/2025 5:47 PM EDT GLUCOSE METER POC Routine 02/16/2025 11:49 AM EDT GLUCOSE METER POC Routine 02/16/2025 7:59 AM EDT ECG AND WAVEFORMS - TELEMETRY Routine 02/16/2025 7:32 AM EDT PT / INR Early AM 02/16/2025 6:40 AM EDT COMPREHENSIVE METABOLIC PANEL Timed 02/16/2025 6:40 AM EDT GLUCOSE METER POC Routine 02/15/2025 8:13 PM EDT ECG AND WAVEFORMS - TELEMETRY Routine 02/15/2025 7:25 PM EDT GLUCOSE METER POC Routine 02/15/2025 4:30 PM EDT GLUCOSE METER POC Routine 02/15/2025 11:41 AM EDT GLUCOSE METER POC Routine 02/15/2025 7:46 AM EDT PT / INR Early AM 02/15/2025 7:27 AM EDT COMPREHENSIVE METABOLIC PANEL Timed 02/15/2025 7:25 AM EDT ECG AND WAVEFORMS - TELEMETRY Routine 02/15/2025 7:07 AM EDT ECG AND WAVEFORMS - TELEMETRY Routine 02/15/2025 7:02 AM EDT GLUCOSE METER POC Routine 02/14/2025 10:33 PM EDT ECG AND WAVEFORMS - TELEMETRY Routine 02/14/2025 7:10 PM EDT GLUCOSE METER POC Routine 02/14/2025 4:43 PM EDT GLUCOSE METER POC Routine 02/14/2025 11:24 AM EDT GLUCOSE METER POC Routine 02/14/2025 7:58 AM EDT ECG AND WAVEFORMS - TELEMETRY Routine 02/14/2025 7:03 AM EDT IRON+TIBC Routine 02/14/2025 6:54 AM EDT CBC Early AM 02/14/2025 6:54 AM EDT PT / INR Early AM 02/14/2025 6:54 AM EDT FERRITIN Add-On 02/14/2025 6:54 AM EDT COMPREHENSIVE METABOLIC PANEL Timed 02/14/2025 6:54 AM EDT GLUCOSE METER POC Routine 02/13/2025 8:56 PM EDT ECG AND WAVEFORMS - TELEMETRY Routine 02/13/2025 7:04 PM EDT GLUCOSE METER POC Routine 02/13/2025 6:23 PM EDT GLUCOSE METER POC Routine 02/13/2025 1:54 PM EDT ADMIT Routine 02/13/2025 12:26 PM EDT SCANNED EKG 02/13/2025 11:28 AM EDT GLUCOSE METER POC Routine 02/13/2025 8:34 AM EDT ECG AND WAVEFORMS - TELEMETRY Routine 02/13/2025 7:00 AM EDT CBC Early AM 02/13/2025 6:24 AM EDT PT / INR Early AM 02/13/2025 6:24 AM EDT COMPREHENSIVE METABOLIC PANEL Timed 02/13/2025 6:24 AM EDT GLUCOSE METER POC Routine 02/12/2025 9:06 PM EDT ECG AND WAVEFORMS - TELEMETRY Routine 02/12/2025 7:38 PM EDT GLUCOSE METER POC Routine 02/12/2025 5:18 PM EDT GLUCOSE METER POC Routine 02/12/2025 12:46 PM EDT EC ECHOCARDIOGRAM 2D M MODE COMPLETE W CONTRAST Routine 02/12/2025 12:39 PM EDT ECG AND WAVEFORMS - TELEMETRY Routine 02/12/2025 11:41 AM EDT CBC Early AM 02/12/2025 9:35 AM EDT HEMOGLOBIN A1C Routine 02/12/2025 9:35 AM EDT COMPREHENSIVE METABOLIC PANEL Timed 02/12/2025 9:35 AM EDT IP CONSULT TO CARDIOLOGY Routine 025 9:16 AM EDT Procedure Note - Mustapha Piper MD - 02/12/2025 9:39 AM EDTThis note is in progress. Cardiology Consultation Note [facility] Attending Physician: Benoit Alvarez MD Requesting Physician: Referral,Self Chief Complaint: Chief Complaint Patient presents with Shortness of Breath SOB currently on Neb with Duoneb and albuterol. Being treated HPI: Mona Nettles is a 44 y.o. year old female with a past medical history ofHTN, HLD, DM, chronic lymphedema, AURELIA, Factor V Leiden, PE, fatty liver,back pain, GERD, thyroid disease, anemia, anxiety who presented on02/12/2025 with shortness of breath and chest pain. Cardiology is consultedon 02/12/25 for chest pain. Discharged from hospital to [facility] after PNA and cellulitis. Breathinggot better than started getting worse the past 2 weeks. Also with chesttightness with activity. Chronic swelling that she is not sure if anyworse. Some difficulty breathing in bed at home the past 3 days.Lightheadedness getting up quickly. Palpitations with activity. Patient denies syncope. REVIEW OF SYSTEMS: Limited as above. Past Medical/Surgical History: Past Medical History: Diagnosis Date Anemia Anxiety [...] PA-C EDG IR UMBILICAL HERNIA REPAIR 2007 Past Social History: Social History Socioeconomic History Marital status: Spouse name: None Number of children: None Years of education: None Highest education level: None Tobacco Use Smoking status: Never Smokeless tobacco: Never Vaping Use Vaping status: Never Used Substance and Sexual Activity Alcohol use: Never Drug use: Never Social Drivers of Health Financial Resource Strain: Medium Risk (01/14/2025) Overall Financial Resource Strain (CARDIA) Difficulty of Paying Living Expenses: Somewhat hard Food Insecurity: Food Insecurity Present (01/14/2025) Hunger Vital Sign Worried About Running Out of Food in the Last Year: Sometimes true Ran Out of Food in the Last Year: Never true Transportation Needs: No Transportation Needs (01/14/2025) [facility] IP Transportation In the past 12 months, has lack of reliable transportation kept you frommedical appointments, meetings, work or from getting things needed fordaily living?: No Physical Activity: Inactive (01/14/2025) Exercise Vital Sign Days of Exercise per Week: 0 days Minutes of Exercise per Session: 0 min Stress: No Stress Concern Present (01/14/2025) [employer] [place] [employer] - Occupational StressQuestionnaire Feeling of Stress : Only a little Received from [facility] Family and Community Support Received from [facility] Abuse Screen Received from [facility] Housing Stability Past Family History: Family History Problem Relation Age of Onset Heart Attack Mother pt is suspicious about this, thinks clotting disorder Kidney Disease Mother Hypertension Mother Early Father 33 Heart Attack Father 33 Other (Factor V Leiden) Father Allergies: No Known Allergies HOSPITAL MEDICATIONS: atorvastatin 40 mg Oral Nightly famotidine 40 mg Oral Nightly FLUoxetine 60 mg Oral Nightly folic acid 1 mg Oral Daily 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) - FSBS (Correction Only) Input 1 EachMISCELLANEOUS QID MEALTIME/HS And insulin aspart (NovoLOG) - Correction - Calculator 0-40 UnitsSubcutaneous QID MEALTIME/HS LEVOthyroxine 75 mcg Oral DAILY EARLY AM mirabegron 50 mg Oral Daily oxyCODONE 30 mg Oral *Q12H propranoloL 20 mg Oral *Q12H QUEtiapine 100 mg Oral BID rOPINIRole 2 mg Oral TID tiZANidine 8 mg Oral Nightly torsemide 20 mg Oral Daily traMADoL 50-100 mg Oral QID warfarin - pharmacy-managed therapy MISCELLANEOUS Daily acetaminophen, albuterol, dextromethorphan-guaiFENesin, dextrose, docusatesodium, glucagon AND sterile water, ondansetron OR ondansetron,sodium chloride 0.9%, sodium chloride 0.9% PHYSICAL EXAMINATION: Vitals: 02/12/25 0500 02/12/25 0509 02/12/25 0528 02/12/25 0903 BP: 139/63 151/67 BP Location: Left arm Left arm Patient Position: Semi Fowlers Lying right side Pulse: 65 67 71 Resp: (!) 23 20 19 Temp: 97.4 F (36.3 C) 97.7 F (36.5 C) TempSrc: Oral Oral SpO2: 100% 100% Weight: (!) 525 lb 12.8 oz (238.5 kg) Height: 5' 7 (1.702 m) Body mass index is 82.35 kg/m . Wt Readings from Last 3 Encounters: 02/12/25 (!) 525 lb 12.8 oz (238.5 kg) 01/13/25 (!) 511 lb (231.8 kg) 12/31/24 (!) 509 lb 9.6 oz (231.2 kg) Intake/Output Summary (Last 24 hours) at 02/12/2025 0939 Last data filed at 02/12/2025 0606 Gross per 24 hour Intake 0 ml Output 0 ml Net 0 ml CONSTITUTIONAL: No apparent distress. Alert and oriented. EYES: Anicteric sclerae, extraoccular muscles intact. EARS, NOSE, MOUTH, THROAT: Oropharynx is moist. Face is atraumatic. NECK: Supple, no masses, no lymphadenopathy. RESPIRATORY: Respiratory effort is normal. Lungs are clear withoutwheezes or rales. CARDIOVASCULAR: Rate as above. Rhythm is regular. Normal S1 and S2. Nomurmurs, rubs, gallops. Visible jugular venous distension. Mild tomoderate lower extremity edema to the mid smiley. Radial pulses are 2+bilaterally. Normal carotid upstroke. No carotid bruits. GASTROINTESTINAL: Bowel sounds are normal. Hepatomegaly is absent.Abdomen is soft, nontender without guarding or rebound tenderness. MUSCULOSKELETAL: Cyanosis is absent. SKIN: Rashes are visually absent. Skin intact. NEUROLOGICAL: Cranial nerves are grossly intact. Speech is normal. PSYCHIATRIC: Mood is normal. Affect is normal. LABORATORY AND STUDIES: Lab Results Component Value Date NA 139 02/12/2025 NA 139 01/21/2025 NA 137 01/20/2025 K 3.7 02/12/2025 K 4.6 01/21/2025 K 4.2 01/20/2025 BUN 10 02/12/2025 BUN 22 (H) 01/21/2025 BUN 24 (H) 01/20/2025 CALCIUM 7.7 (L) 02/12/2025 CL 105 02/12/2025 CO2 22 02/12/2025 CREATININE 1.08 02/12/2025 CREATININE 1.62 (H) 01/21/2025 CREATININE 1.61 (H) 01/20/2025 GLU 175 (H) 02/12/2025 Lab Results Component Value Date WBC 8.4 02/12/2025 WBC 8.3 01/21/2025 WBC 8.2 01/18/2025 HGB 9.5 (L) 02/12/2025 HGB 8.2 (L) 01/21/2025 HGB 8.3 (L) 01/18/2025 HCT 31.6 (L) 02/12/2025 HCT 28.9 (L) 01/21/2025 HCT 28.5 (L) 01/18/2025 MCV 73.5 (L) 02/12/2025 PLT 271 02/12/2025 PLT 307 01/21/2025 PLT 286 01/18/2025 No results found for: TROPT Lab Results Component Value Date INR 3.15 (H) 02/12/2025 INR 3.14 (H) 01/26/2025 INR 2.67 (H) 01/25/2025 Lab Results Component Value Date CHOLESTEROL 148 08/31/2020 CHOLESTEROL 134 12/15/2019 HDL 44 08/31/2020 HDL 32 (L) 12/15/2019 LDLCALC 82 08/31/2020 LDLCALC 72 12/15/2019 TRIG 109 08/31/2020 TRIG 151 (H) 12/15/2019 Lab Results Component Value Date ALT 10 05/30/2024 AST 16 05/30/2024 ALKPHOS 115 05/30/2024 Lab Results Component Value Date HGBA1C 6.8 (H) 06/19/2024 HGBA1C 7.6 (H) 04/14/2024 HGBA1C 6.8 (H) 12/15/2019 Lab Results Component Value Date TSH 4.940 (H) 06/18/2024 TSH 1.970 08/31/2020 Lab Results Component Value Date BNP 2,038 (H) 02/12/2025 BNP 1,267 (H) 01/13/2025 Imaging: Reviewed CXR and Chest CT report. EC02/12/25 sinus 66. Reviewed by me. Telemetry: sinus 76; 60s-80s, no arrhythmias. Reviewed by me. Previous Cardiac Studies: None on file. PROBLEM LIST: Chest pain Shortness of breath ?Acute unspecified heart failure Demand ischemia Chronic lymphedema Hypertension Hyperlipidemia Diabetes Family history of [place] ASSESSMENT AND PLAN: Mona Nettles is a 44 y.o. year old female with a past medical history ofHTN, HLD, DM, chronic lymphedema, AURELIA, Factor V Leiden, PE, fatty liver,back pain, GERD, thyroid disease, anemia, anxiety who presented on02/12/2025 with shortness of breath and chest pain. Cardiology is consultedon 02/12/25 for chest pain. 1. Chest pain, ?acute heart failure. Here initially with worsening shortness of breath x 1 week after recentadmission for PNA and abdominal cellulitis and subsequent rehab stay.Also chest pain. On my initial assessment she reports worsened dyspnea onexertion, some exertional chest discomfort and possible PND/orthopnearecently. She reports chronic lymphedema. Initial troponins 31, 27. Initial NTproBNP 2037. Initial Cr 1.08, Na139, K 3.7, Ca 7.7, INR 3.1, WBC 8.4, Hgb 9.5, Plt 271. Chest CT withessentially resolved right lung opacities, no coronary arterycalcifications. CXR clear. ECG sinus, non-ischemic. History of chronic lymphedema. No cardiac history. None on file. Homecardiac related meds include lipitor, propranolol, torsemide, coumadin. On exam some JVD and mild to moderate non-pitting swelling to themid-shins. Blood pressure 151/67. Telemetry sinus without arrhythmia.Current cardiac related meds include lipitor, propranolol, torsemide,coumadin. Impression is here with chest discomfort with some typical features butin stable pattern. Also worsened shortness of breath after having beenrecently treated for PNA. Chest CT here shows near resolution of PNA.NTproBNP elevated. Troponin elevated but not in ACS pattern and probablydemand ischemia. Etiology of shortness of breath probably multifactorialrelated to recent PNA, obesity, AURELIA and maybe some degree of heartfailure. Plan: - Stop torsemide. Start IV lasix 40 bid. - Echo. - Eventual ischemic eval to be considered pending echo and diuresis.Probably nuclear stress Friday. Will follow along. Discussed with the patient. Thank you for allowing me to participate in this patient's care. Please donot hesitate to contact me with any questions Mustapha Piper MD [facility] 02/12/2025 IP CONSULT TO PHARMACY Routine 9:15 AM EDT GLUCOSE METER POC Routine 02/12/2025 8:[address] CHEST WO CONTRAST STAT 02/12/2025 7:49 AM EDT ECG AND WAVEFORMS - TELEMETRY Routine 02/12/2025 7:00 AM EDT ECG AND WAVEFORMS - TELEMETRY Routine 02/12/2025 6:17 AM EDT IP CONSULT TO WOUND CARE Routine 025 5:47 AM EDT Procedure Note - Bernie Poe RN - 02/14/2025 8:39 AM EDTThis note is in progress. Inpatient consult to wound care for:Other (comment); LLQ abdomencellulitis Consult performed by: Benoit Alvarez MD Consult ordered by: Osvaldo Pemberton MD Received consult for the above. Upon chart review, no LDA was added for awound and wound care can not treat cellulitis. Secure chat message sent toSNAP III, no RN signed in on treatment team, to advise to pleasere-consult after assessment if there is a wound to assess. Encourage continuation of preventative interventions such as frequentrepositioning/ scheduled turns, as well as offloading bilateral heels.Patient is on a low air loss sleep surface to manage the microclimate ofthe skin (ensure function is on). Will not actively follow at time, please re-consult with any newconcerns. ADMIT Routine 02/12/2025 4:43 AM EDT TROPONIN-T HIGH SENSITIVITY 2HR Timed 02/12/2025 4:08 AM EDT TROPONIN-T HIGH SENSITIVITY BASELINE W/ REFLEX STAT 02/12/2025 2:21 AM EDT BLOOD GAS, VENOUS STAT 02/12/2025 2:21 AM EDT PT / INR STAT 02/12/2025 2:21 AM EDT CBC WITH DIFF STAT 02/12/2025 2:21 AM EDT NT PROBNP Add-On 02/12/2025 2:21 AM EDT BASIC METABOLIC PANEL STAT 02/12/2025 2:21 AM EDT XR CHEST AP PORTABLE MADELINE 02/12/2025 1:53 AM EDT EK EKG 12 LEAD STAT 02/12/2025 1:37 AM EDT documented in this encounter Results * (ABNORMAL) GLUCOSE METER POC (02/18/2025 5:15 PM EDT) [facility] Signature Glucose Meter POC 226(H) 70 - 100 mg/dL 02/18/2025 5:23 PM EDT [facility] Sample Type Capillary 02/18/2025 5:23 PM EDT [facility] Patient Status Non-Critical Patient 02/18/2025 5:23 PM EDT [facility] Blood BLOOD SPECIMEN / Unknown 02/18/2025 5:15 PM EDT 02/18/2025 5:23 PM EDT Benoit Alvarez MD POINT OF CARE TEST ORDERABLES F inal Result [facility] [address] [facility] [place] [address] * XR CHEST AP PORTABLE (02/18/2025 3:18 PM EDT) Anatomical Region Laterality Modality Chest Radiographic Kiesha ging 02/18/2025 3:18 PM EDT Impressions 02/18/2025 3:23 PM EDT No acute finding. Limited examination. - Note: Radiology results need to be interpreted within a comprehensive clinical context. If you have questions about the radiology report, please contact the office of the ordering clinician. Narrative 02/18/2025 3:23 PM EDT XR CHEST AP PORTABLE, 02/18/2025 3:18 PM CLINICAL HISTORY: -chest pain, recent EGD COMPARISON: 02/17/2025. CT chest 02/12/2025 PROCEDURE COMMENTS: AP portable technique. FINDINGS: Underpenetrated exam. Cardiomediastinal silhouette is normal in size and configuration. No gross consolidation, effusion, or large pneumothorax, although exam is limited due to significant overlying soft tissue. Procedure Note Lenard Sheppard MD - 02/18/2025 XR CHEST AP PORTABLE, 02/18/2025 3:18 PM CLINICAL HISTORY: -chest pain, recent EGD COMPARISON: 02/17/2025. CT chest 02/12/2025 PROCEDURE COMMENTS: AP portable technique. FINDINGS: Underpenetrated exam. Cardiomediastinal silhouette is normal in size and configuration. No gross consolidation, effusion, or large pneumothorax,although exam is limited due to significant overlying soft tissue. IMPRESSION: No acute finding. Limited examination. - Note: Radiology results need to be interpreted within a comprehensiveclinical context. If you have questions about the radiology report, please contactthe office of the ordering clinician. Salazar Snow MD IMG DIAGNOSTIC IMAGING ORDERABLE S Final Result * (ABNORMAL) GLUCOSE METER POC (02/18/2025 1:22 PM EDT) Glucose Meter POC 165(H) 70 - 100 mg/dL 02/18/2025 1:24 PM EDT [facility] Sample Type Capillary 02/18/2025 1:24 PM EDT [facility] Patient Status Non-Critical Patient 02/18/2025 1:24 PM EDT [facility] Blood BLOOD SPECIMEN / Unknown 02/18/2025 1:22 PM EDT 02/18/2025 1:24 PM EDT Benoit Alvarez MD POINT OF CARE TEST ORDERABLES F inal Result [facility] [address] [place] [address] * EK EKG 12 LEAD (02/18/2025 11:36 AM EDT) Anatomical Region Laterality Modality Electrocardiogra phy 02/18/2025 12:0 0 PM EDT Impressions 02/19/2025 1:24 PM EDT [facility] Test Date: 2025-02-18 Pat Name: MONA NETTLES Department: DEPID Room: [facility] Gender: Female 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1980 Requested By: DANYA Oates Order Number: [id number] Reading MD: Cooper Wood MD Measurements Intervals [place] Rate: 92 P: 58 ME: 179 QRS: 54 QRSD: 102 T: 32 QT: 385 QTc: 476 Interpretive Statements SINUS RHYTHM Electronically Signed On 02-19-2025 13:24:34 EDT by Cooper Wood MD Narrative Procedure Note Cooper Wood MD - 02/19/2025 IMPRESSION [facility] Test Date: 2025-02-18 Pat Name: MONA NETTLES Department: DEPID Room: [facility] Gender: Female 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 Findings All observed locations appeared normal. Recommendation Repeat screening colonoscopy in 10 years, due: 02/16/2035 Pre-Procedure Diagnosis / Indication Other iron deficiency anemia Post-Procedure Diagnosis Normal exam Staff Staff Role Aly Najera DO Performing Provider Trinidad Palma RN Endoscopy Nurse Danya Rossi MD Anesthesiologist Nory Gorman RN Assistant Women'S Tennis Coach Medications See Anesthesia Record. Preprocedure A history and physical has been performed, and patient medication allergies have been reviewed. The patient's tolerance of previous anesthesia has been reviewed. The risks and benefits of the procedure and the sedation options and risks were discussed with the patient. All questions were answered and informed consent obtained. ASA 4 - Patient with severe systemic disease that is a constant threat to life Details of the Procedure The patient underwent general anesthesia, which was administered by an anesthesia professional. The patient's blood pressure, heart rate, level of consciousness, oxygen saturation, respirations, ECG and ETCO2 were monitored throughout the procedure. A digital rectal exam was performed. The scope was introduced through the anus and advanced to the cecum. Retroflexion was performed in the rectum. Bowel prep was adequate. The patient experienced no blood loss. The procedure was not difficult. The patient tolerated the procedure well. There were no apparent adverse events. Patient provided education and educated on specific discharge instructions. Patient educated on medications given during the procedure and new medications for discharge. Patient verbalizes understanding of discharge education. Patient stable and awaiting transport for discharge. Events Procedure Events Event Event Time ENDO SCOPE IN TIME 02/18/2025 10:38 AM ENDO SCOPE OUT TIME 02/18/2025 10:42 AM ENDO SCOPE IN TIME 02/18/2025 10:54 AM ENDO CECUM REACHED 02/18/2025 11:00 AM ENDO SCOPE OUT TIME 02/18/2025 11:08 AM Specimens No specimens collected Anesthesia Event Time In Patient In - Proc. Room 02/18 10:25 AM Danya Rossi MD ENDOSCOPY PROCEDURE ORDERABL ES Final Result * ESOPHAGOGASTRODUODENOSCOPY (EGD) (02/18/2025 11:18 AM EDT) Anatomical Region Laterality Modality Endoscopy Narrative 02/18/2025 11:12 AM EDT Table formatting from the original result was not included. Findings The esophagus and duodenum appeared normal. Lap band anatomy noted with dilation above the lap band. Gastric mucosa unremarkable Recommendation Continue current acid suppression medication 30 minutes before a meal. - No obvious source of blood loss on this exam Pre-Procedure Diagnosis / Indication Other iron deficiency anemia Post-Procedure Diagnosis Lap Band Staff Staff Role Aly Najera DO Performing Provider Trinidad Palma RN Endoscopy Nurse Danya Rossi MD Anesthesiologist Nory Gorman RN Assistant Women'S Tennis Coach Medications See Anesthesia Record. Preprocedure A history and physical has been performed, and patient medication allergies have been reviewed. The patient's tolerance of previous anesthesia has been reviewed. The risks and benefits of the procedure and the sedation options and risks were discussed with the patient. All questions were answered and informed consent obtained. ASA 4 - Patient with severe systemic disease that is a constant threat to life Details of the Procedure The patient underwent monitored anesthesia care, which was administered by an anesthesia professional. The patient's blood pressure, heart rate, level of consciousness, oxygen saturation, respirations, ECG and ETCO2 were monitored throughout the procedure. The scope was introduced through the mouth and advanced to the second part of the duodenum. Retroflexion was performed in the cardia. The patient experienced no blood loss. The procedure was not difficult. The patient tolerated the procedure well. There were no apparent adverse events. Patient provided education and educated on specific discharge instructions. Patient educated on medications given during the procedure and new medications for discharge. Patient verbalizes understanding of discharge education. Patient stable and awaiting transport for discharge. Events Procedure Events Event Event Time ENDO SCOPE IN TIME 02/18/2025 10:38 AM ENDO SCOPE OUT TIME 02/18/2025 10:42 AM Specimens No specimens collected Anesthesia Event Time In Patient In - Proc. Room 02/18 10:25 AM Danya Rossi MD ENDOSCOPY PROCEDURE ORDERABL ES Final Result * (ABNORMAL) GLUCOSE METER POC (02/18/2025 8:20 AM EDT) Glucose Meter POC 168(H) 70 - 100 mg/dL 02/18/2025 8:22 AM EDT [facility] Sample Type Capillary 02/18/2025 8:22 AM EDT [facility] Patient Status Non-Critical Patient 02/18/2025 8:22 AM EDT [facility] Blood BLOOD SPECIMEN / Unknown 02/18/2025 8:20 AM EDT 02/18/2025 8:22 AM EDT Benoit Alvarez MD POINT OF CARE TEST ORDERABLES F inal Result [facility] [address] [place] [address] * HUMAN CHORIONIC GONADOTROPIN QUANTITATIVE (02/18/2025 7:05 AM EDT) Pathologist [facility] Hcg Quant <1 <5 mIU/mL 02/18/2025 7:44 AM EDT [facility] Blood VENOUS BLOOD / Unknown Venipuncture / Unknown 02/18/2025 7:05 AM EDT 02/18/2025 7:16 AM EDT Narrative [facility] - 02/18/2025 7:44 AM EDT Female (non-): 0-4.9 mIU/mL Female (postmenopausal): 0-8.1 mIU/mL Indeterminate values for (e.g., 5-25 mIU/mL) may be confirmed with a repeat test in 48-72 hours. Values in should double every 2-3 days for the first six weeks. Ingestion of tom doses of biotin (>5 mg/day) taken within 8 hours of drawing blood sample can interfere with this immunoassay test. us Danya Rossi MD CHEMISTRY ORDERABLES Final R esult [facility] [address] [place] [address] * (ABNORMAL) COMPREHENSIVE METABOLIC PANEL (02/18/2025 7:05 AM EDT) Sodium 138 136 - 145 mmol/L 02/18/2025 7:44 AM EDT [facility] Potassium 4.3 3.5 - 5.0 mmol/L 02/18/2025 7:44 AM EDT [facility] Chloride 103 98 - 107 mmol/L 02/18/2025 7:44 AM EDT [facility] Total CO2 24 22 - 29 mmol/L 02/18/2025 7:44 AM EDT [facility] Anion Gap 11 7 - 16 mmol/L 02/18/2025 7:44 AM EDT [facility] Calcium 8.5(L) 8.6 - 10.4 mg/dL 02/18/2025 7:44 AM EDT [facility] Glucose Lvl 166(H) 70 - 99 mg/dL 02/18/2025 7:44 AM EDT [facility] BUN 14 6 - 20 mg/dL 02/18/2025 7:44 AM EDT [facility] Creatinine 1.19 0.51 - 1.30 mg/dL 02/18/2025 7:44 AM EDT [facility] Albumin 3.4(L) 3.5 - 5.2 gm/dL 02/18/2025 7:44 AM EDT [facility] Total Protein 6.5 6.4 - 8.3 gm/dL 02/18/2025 7:44 AM EDT [facility] Bili Total 1.1 0.2 - 1.3 mg/dL 02/18/2025 7:44 AM EDT [facility] ALT 12 <=41 U/L 02/18/2025 7:44 AM EDT [facility] AST 20 <=40 U/L 02/18/2025 7:44 AM EDT [facility] Alk Phos 124(H) 36 - 123 U/L 02/18/2025 7:44 AM EDT [facility] eGFR (CKD-EPIcr 2020) 58(L) >=60 mL/min/1.7 3 m2 02/18/2025 7:44 AM EDT [facility] Comment:Estimated GFR was ca lculated using the CKD-EPIcr (2020) equation refit without race. The equation is recommended by the [employer] - [place] [employer]ph[employer] Task Force. Blood VENOUS BLOOD / Unknown Venipuncture / Unknown 02/18/2025 7:05 AM EDT 02/18/2025 7:16 AM EDT Benoit Alvarez MD CHEMISTRY ORDERABLES Final Resu lt [facility] [address] [place] [address] * (ABNORMAL) PT / INR (02/18/2025 7:05 AM EDT) PT 16.4(H) 10.5 - 13.6 second(s) 02/18/2025 7:33 AM EDT [facility] INR 1.42(H) 0.91 - 1.18 (ratio) 02/18/2025 7:33 AM EDT [facility] Comment: Level of Therapy Indications Target INR Range Standard Dose Treatment and prophylaxis of venous 2.0 - 3.0 thrombosis, pulmonary embolism High Dose High risk patients with mechanical 2.5 - 3.5 heart valves Blood VENOUS BLOOD / Unknown Venipuncture / Unknown 02/18/2025 7:05 AM EDT 02/18/2025 7:16 AM EDT Karla Guillory MAURI HEMATOLOGY ORDERABLE S Final Result Performing Organization Address [place] de Phone Number [facility] [address] [place] [address] * (ABNORMAL) HEPARIN ANTI-XA, UNF (02/18/2025 12:59 AM EDT) Heparin Level UNF 0.21(L) 0.30 - 0.70 IU/mL 02/18/2025 1:19 AM EDT [facility] Comment:The therapeutic rang e for heparinized patients monitored by the Heparin Lvl UF is 0.30-0.70 IU/mL. Blood VENOUS BLOOD / Unknown Venipuncture / Unknown 02/18/2025 12:59 AM EDT 02/18/2025 1:06 AM EDT Salazar Snow MD HEMATOLOGY ORDERABLES Final Resu lt Performing Organization Address [facility] Phone Number [facility] [address] [place] [address] * (ABNORMAL) GLUCOSE METER POC (02/17/2025 8:25 PM EDT) Glucose Meter POC 202(H) 70 - 100 mg/dL 02/17/2025 8:27 PM EDT [facility] Sample Type Capillary 02/17/2025 8:27 PM EDT [facility] Patient Status Non-Critical Patient 02/17/2025 8:27 PM EDT [facility] Blood BLOOD SPECIMEN / Unknown 02/17/2025 8:25 PM EDT 02/17/2025 8:27 PM EDT Benoit Alvarez MD POINT OF CARE TEST ORDERABLES F inal Result Performing Organization Address [place] Co de Phone Number [facility] [address] [place] [address] * (ABNORMAL) GLUCOSE METER POC (02/17/2025 5:38 PM EDT) Glucose Meter POC 153(H) 70 - 100 mg/dL 02/17/2025 5:39 PM EDT [facility] Sample Type Capillary 02/17/2025 5:39 PM EDT [facility] Patient Status Non-Critical Patient 02/17/2025 5:39 PM EDT [facility] Blood BLOOD SPECIMEN / Unknown 02/17/2025 5:38 PM EDT 02/17/2025 5:39 PM EDT Benoit Alvarez MD POINT OF CARE TEST ORDERABLES F inal Result Performing Organization Address [place] de Phone Number [facility] [address] [address] * (ABNORMAL) GLUCOSE METER POC (02/17/2025 12:03 PM EDT) Glucose Meter POC 167(H) 70 - 100 mg/dL 02/17/2025 12:04 PM EDT [facility] Sample Type Capillary 02/17/2025 12:04 PM EDT [facility] Patient Status Non-Critical Patient 02/17/2025 12:04 PM EDT [facility] Blood BLOOD SPECIMEN / Unknown 02/17/2025 12:03 PM EDT 02/17/2025 12:04 PM EDT Benoit Alvarez MD POINT OF CARE TEST ORDERABLES F inal Result Performing Organization Address [place] de Phone Number [facility] [address] [place] [address] * XR CHEST AP PORTABLE (02/17/2025 12:02 PM EDT) Anatomical Region Laterality Modality Chest Radiographic Kiesha ging 02/17/2025 12:0 2 PM EDT Impressions 02/17/2025 12:08 PM EDT limited study. NG tube most likely in the stomach. see above. - Note: Radiology results need to be interpreted within a comprehensive clinical context. If you have questions about the radiology report, please contact the office of the ordering clinician. Narrative 02/17/2025 12:08 PM EDT XR CHEST AP PORTABLE, 02/17/2025 12:02 PM CLINICAL HISTORY: -verify tube placement COMPARISON: None. PROCEDURE COMMENTS: AP portable technique. FINDINGS: Support devices: NG tube in the stomach though not well visualized. Study limited by patient body habitus and portable technique. Procedure Note Kenya Garcia MD - 02/17/2025 XR CHEST AP PORTABLE, 02/17/2025 12:02 PM CLINICAL HISTORY: -verify tube placement COMPARISON: None. PROCEDURE COMMENTS: AP portable technique. FINDINGS: Support devices: NG tube in the stomach though not well visualized.Study limited by patient body habitus and portable technique. IMPRESSION: limited study. NG tube most likely in the stomach. see above. - Note: Radiology results need to be interpreted within a comprehensiveclinical context. If you have questions about the radiology report, please contactthe office of the ordering clinician. Fernanda Atkins APRN IMG DIAGNOSTIC IMAGING OR DERABLES Final Result * (ABNORMAL) GLUCOSE METER POC (02/17/2025 8:02 AM EDT) [facility] Glucose Meter POC 179(H) 70 - 100 mg/dL 02/17/2025 8:05 AM EDT [facility] Sample Type Capillary 02/17/2025 8:05 AM EDT [facility] Patient Status Non-Critical Patient 02/17/2025 8:05 AM EDT [facility] Blood BLOOD SPECIMEN / Unknown 02/17/2025 8:02 AM EDT 02/17/2025 8:05 AM EDT Benoit Alvarez MD POINT OF CARE TEST ORDERABLES F inal Result [facility] [address] [place] [address] * ECG AND WAVEFORMS - TELEMETRY (02/17/2025 7:13 AM EDT) [facility] ECG INTERPRET NSR [facility] 02/17/2025 7:13 AM EDT Narrative [facility] - 02/17/2025 7:16 AM EDT ROUTINE (BS) ME 0.18 QRS 0.12 RR 0.87 QT 0.45 QTc 0.48 See Clinical Report link for waveform capture us Unknown Provider POINT OF CARE CARDIOLOGY Final Result [facility] [address] [place] [address] * (ABNORMAL) COMPREHENSIVE METABOLIC PANEL (02/17/2025 5:28 AM EDT) [facility] Sodium 136 136 - 145 mmol/L 02/17/2025 6:20 AM EDT [facility] Potassium 4.4 3.5 - 5.0 mmol/L 02/17/2025 6:20 AM EDT [facility] Chloride 102 98 - 107 mmol/L 02/17/2025 6:20 AM EDT [facility] Total CO2 25 22 - 29 mmol/L 02/17/2025 6:20 AM EDT [facility] Anion Gap 9 7 - 16 mmol/L 02/17/2025 6:20 AM EDT [facility] Calcium 8.0(L) 8.6 - 10.4 mg/dL 02/17/2025 6:20 AM EDT [facility] Glucose Lvl 195(H) 70 - 99 mg/dL 02/17/2025 6:20 AM EDT [facility] BUN 19 6 - 20 mg/dL 02/17/2025 6:20 AM EDT [facility] Creatinine 1.35(H) 0.51 - 1.30 mg/dL 02/17/2025 6:20 AM EDT [facility] Albumin 3.1(L) 3.5 - 5.2 gm/dL 02/17/2025 6:20 AM EDT [facility] Total Protein 6.0(L) 6.4 - 8.3 gm/dL 02/17/2025 6:20 AM EDT [facility] Bili Total 0.6 0.2 - 1.3 mg/dL 02/17/2025 6:20 AM EDT [facility] ALT 10 <=41 U/L 02/17/2025 6:20 AM EDT [facility] AST 13 <=40 U/L 02/17/2025 6:20 AM EDT [facility] Alk Phos 108 36 - 123 U/L 02/17/2025 6:20 AM EDT [facility] eGFR (CKD-EPIcr 2020) 49(L) >=60 mL/min/1.7 3 m2 02/17/2025 6:20 AM EDT [facility] Comment:Estimated GFR was ca lculated using the CKD-EPIcr (2020) equation refit without race. The equation is recommended by the National Kid[employer] - [place] [employer] Nephrology Task Force. Blood VENOUS BLOOD / Unknown Venipuncture / Unknown 02/17/2025 5:28 AM EDT 02/17/2025 5:58 AM EDT us Benoit Alvarez MD CHEMISTRY ORDERABLES Final Resu lt [facility] [address] [place] [address] * (ABNORMAL) PT / INR (02/17/2025 5:26 AM EDT) PT 21.2(H) 10.5 - 13.6 second(s) 02/17/2025 6:09 AM EDT [facility] INR 1.82(H) 0.91 - 1.18 (ratio) 02/17/2025 6:09 AM EDT [facility] Comment: Level of Therapy Indications Target INR Range Standard Dose Treatment and prophylaxis of venous 2.0 - 3.0 thrombosis, pulmonary embolism High Dose High risk patients with mechanical 2.5 - 3.5 heart valves Blood VENOUS BLOOD / Unknown Venipuncture / Unknown 02/17/2025 5:26 AM EDT 02/17/2025 5:58 AM EDT Karla Guillory APRN HEMATOLOGY ORDERABLE S Final Result Performing Organization Address [place] Co de Phone Number [facility] [address] [place] [address] * (ABNORMAL) GLUCOSE METER POC (02/16/2025 8:39 PM EDT) Glucose Meter POC 227(H) 70 - 100 mg/dL 02/16/2025 8:41 PM EDT [facility] Sample Type Capillary 02/16/2025 8:41 PM EDT [facility] Patient Status Non-Critical Patient 02/16/2025 8:41 PM EDT [facility] Blood BLOOD SPECIMEN / Unknown 02/16/2025 8:39 PM EDT 02/16/2025 8:41 PM EDT Benoit Alvarez MD POINT OF CARE TEST ORDERABLES F inal Result Performing Organization Address [facility] Phone Number [facility] [address] [address] * (ABNORMAL) GLUCOSE METER POC (02/16/2025 5:47 PM EDT) Glucose Meter POC 179(H) 70 - 100 mg/dL 02/16/2025 5:49 PM EDT [facility] Sample Type Capillary 02/16/2025 5:49 PM EDT [facility] Patient Status Non-Critical Patient 02/16/2025 5:49 PM EDT [facility] Blood BLOOD SPECIMEN / Unknown 02/16/2025 5:47 PM EDT 02/16/2025 5:49 PM EDT Benoit Alvarez MD POINT OF CARE TEST ORDERABLES F inal Result Performing Organization Address [place] Co de Phone Number [facility] [address] [place] [address]. [place] [address] * (ABNORMAL) GLUCOSE METER POC (02/16/2025 11:49 AM EDT) Glucose Meter POC 226(H) 70 - 100 mg/dL 02/16/2025 11:50 AM EDT [facility] Sample Type Capillary 02/16/2025 11:50 AM EDT [facility] Patient Status Non-Critical Patient 02/16/2025 11:50 AM EDT [facility] Blood BLOOD SPECIMEN / Unknown 02/16/2025 11:49 AM EDT 02/16/2025 11:50 AM EDT Benoit Alvarez MD POINT OF CARE TEST ORDERABLES F inal Result Performing Organization Address [place] Co de Phone Number [facility] [address] [address] * (ABNORMAL) GLUCOSE METER POC (02/16/2025 7:59 AM EDT) Glucose Meter POC 176(H) 70 - 100 mg/dL 02/16/2025 8:01 AM EDT [facility] Sample Type Capillary 02/16/2025 8:01 AM EDT [facility] Patient Status Non-Critical Patient 02/16/2025 8:01 AM EDT [facility] Blood BLOOD SPECIMEN / Unknown 02/16/2025 7:59 AM EDT 02/16/2025 8:01 AM EDT Benoit Alvarez MD POINT OF CARE TEST ORDERABLES F inal Result Performing Organization Address City/[facility]/ZIP Co de Phone Number [facility] [address] [place] [address] * ECG AND WAVEFORMS - TELEMETRY (02/16/2025 7:32 AM EDT) ECG INTERPRET NSR [facility] 02/16/2025 7:32 AM EDT Narrative [facility] - 02/16/2025 7:42 AM EDT ROUTINE/MAT[employer] SUPERVISOR ME 0.19 QRS 0.09 RR 0.92 QT 0.41 QTc 0.43 See Clinical Report link for waveform capture us Unknown Provider POINT OF CARE CARDIOLOGY Final Result [facility] [address] [place] [id number] * (ABNORMAL) COMPREHENSIVE METABOLIC PANEL (02/16/2025 6:40 AM EDT) Sodium 137 136 - 145 mmol/L 02/16/2025 7:13 AM EDT [facility] Potassium 4.3 3.5 - 5.0 mmol/L 02/16/2025 7:13 AM EDT [facility] LABORATORY Chloride 103 98 - 107 mmol/L 02/16/2025 7:13 AM EDT [facility] Total CO2 24 22 - 29 mmol/L 02/16/2025 7:13 AM EDT [facility] Anion Gap 10 7 - 16 mmol/L 02/16/2025 7:13 AM EDT [facility] Calcium 7.7(L) 8.6 - 10.4 mg/dL 02/16/2025 7:13 AM EDT [facility] Glucose Lvl 195(H) 70 - 99 mg/dL 02/16/2025 7:13 AM EDT [facility] BUN 20 6 - 20 mg/dL 02/16/2025 7:13 AM EDT [facility] Creatinine 1.38(H) 0.51 - 1.30 mg/dL 02/16/2025 7:13 AM EDT [facility] Albumin 3.0(L) 3.5 - 5.2 gm/dL 02/16/2025 7:13 AM EDT [facility] Total Protein 5.9(L) 6.4 - 8.3 gm/dL 02/16/2025 7:13 AM EDT [facility] Bili Total 0.7 0.2 - 1.3 mg/dL 02/16/2025 7:13 AM EDT [facility] ALT 8 <=41 U/L 02/16/2025 7:13 AM EDT [facility] AST 13 <=40 U/L 02/16/2025 7:13 AM EDT [facility] Alk Phos 108 36 - 123 U/L 02/16/2025 7:13 AM EDT [facility] eGFR (CKD-EPIcr 2020) 48(L) >=60 mL/min/1.7 3 m2 02/16/2025 7:13 AM EDT [facility] Comment:Estimated GFR was ca lculated using the CKD-EPIcr (2020) equation refit without race. The equation is recommended by the National Kid[employer] - [place] [employer] Nephrology Task Force. Blood VENOUS BLOOD / Unknown Venipuncture / Unknown 02/16/2025 6:40 AM EDT 02/16/2025 6:52 AM EDT Benoit Alvarez MD CHEMISTRY ORDERABLES Final Resu lt [facility] [address] [place] [address] * (ABNORMAL) PT / INR (02/16/2025 6:40 AM EDT) PT 28.7(H) 10.5 - 13.6 second(s) 02/16/2025 7:02 AM EDT [facility] INR 2.45(H) 0.91 - 1.18 (ratio) 02/16/2025 7:02 AM EDT [facility] Comment: Level of Therapy Indications Target INR Range Standard Dose Treatment and prophylaxis of venous 2.0 - 3.0 thrombosis, pulmonary embolism High Dose High risk patients with mechanical 2.5 - 3.5 heart valves Blood VENOUS BLOOD / Unknown Venipuncture / Unknown 02/16/2025 6:40 AM EDT 02/16/2025 6:52 AM EDT Karla Guillory APRN HEMATOLOGY ORDERABLE S Final Result Performing Organization Address [place] de Phone Number [facility] [address] [place] [address] * (ABNORMAL) GLUCOSE METER POC (02/15/2025 8:13 PM EDT) Glucose Meter POC 218(H) 70 - 100 mg/dL 02/15/2025 8:24 PM EDT [facility] Sample Type Capillary 02/15/2025 8:24 PM EDT [facility] Patient Status Non-Critical Patient 02/15/2025 8:24 PM EDT [facility] Blood BLOOD SPECIMEN / Unknown 02/15/2025 8:13 PM EDT 02/15/2025 8:24 PM EDT Benoit Alvarez MD POINT OF CARE TEST ORDERABLES F inal Result Performing Organization Address [facility] Co de Phone Number [facility] [address] [place] [address] * ECG AND WAVEFORMS - TELEMETRY (02/15/2025 7:25 PM EDT) [facility] ECG INTERPRET NSR [facility] 02/15/2025 7:25 PM EDT Narrative [facility] - 02/15/2025 7:35 PM EDT ROUTINE/[employer]PER[employer] ME 0.15 QRS 0.09 RR 0.73 QT 0.43 QTc 0.50 See Clinical Report link for waveform capture us Unknown Provider POINT OF CARE CARDIOLOGY Final Result Performing Organization Address [place] Co de Phone Number [facility] [address] [place] [address] * (ABNORMAL) GLUCOSE METER POC (02/15/2025 4:30 PM EDT) Glucose Meter POC 192(H) 70 - 100 mg/dL 02/15/2025 4:32 PM EDT [facility] Sample Type Capillary 02/15/2025 4:32 PM EDT [facility] Patient Status Non-Critical Patient 02/15/2025 4:32 PM EDT [facility] Blood BLOOD SPECIMEN / Unknown 02/15/2025 4:30 PM EDT 02/15/2025 4:32 PM EDT Benoit Alvarez MD POINT OF CARE TEST ORDERABLES F inal Result Performing Organization Address [facility] de Phone Number [facility] [address] [place] [address] * (ABNORMAL) GLUCOSE METER POC (02/15/2025 11:41 AM EDT) Glucose Meter POC 177(H) 70 - 100 mg/dL 02/15/2025 11:42 AM EDT [facility] Sample Type Capillary 02/15/2025 11:42 AM EDT [facility] Patient Status Non-Critical Patient 02/15/2025 11:42 AM EDT [facility] Blood BLOOD SPECIMEN / Unknown 02/15/2025 11:41 AM EDT 02/15/2025 11:42 AM EDT Benoit Alvarez MD POINT OF CARE TEST ORDERABLES F inal Result Performing Organization Address [facility] de Phone Number [facility] [address] [place] [address] * (ABNORMAL) GLUCOSE METER POC (02/15/2025 7:46 AM EDT) Glucose Meter POC 191(H) 70 - 100 mg/dL 02/15/2025 7:47 AM EDT [facility] Sample Type Capillary 02/15/2025 7:47 AM EDT [facility] Patient Status Non-Critical Patient 02/15/2025 7:47 AM EDT [facility] Blood BLOOD SPECIMEN / Unknown 02/15/2025 7:46 AM EDT 02/15/2025 7:47 AM EDT us Benoit Alvarez MD POINT OF CARE TEST ORDERABLES F inal Result Performing Organization Address [place] de Phone Number [facility] [address] [place] [address] * (ABNORMAL) PT / INR (02/15/2025 7:27 AM EDT) PT 33.9(H) 10.5 - 13.6 second(s) 02/15/2025 8:23 AM EDT [facility] INR 2.88(H) 0.91 - 1.18 (ratio) 02/15/2025 8:23 AM EDT [facility] Comment: Level of Therapy Indications Target INR Range Standard Dose Treatment and prophylaxis of venous 2.0 - 3.0 thrombosis, pulmonary embolism High Dose High risk patients with mechanical 2.5 - 3.5 heart valves Blood VENOUS BLOOD / Unknown Venipuncture / Unknown 02/15/2025 7:27 AM EDT 02/15/2025 8:09 AM EDT us Karla Guillory APRN HEMATOLOGY ORDERABLE S Final Result Performing Organization Address [place] de Phone Number [facility] [address] [place] [address] * (ABNORMAL) COMPREHENSIVE METABOLIC PANEL (02/15/2025 7:25 AM EDT) Sodium 137 136 - 145 mmol/L 02/15/2025 8:33 AM EDT [facility] Potassium 4.1 3.5 - 5.0 mmol/L 02/15/2025 8:33 AM EDT [facility] Chloride 102 98 - 107 mmol/L 02/15/2025 8:33 AM EDT [facility] Total CO2 24 22 - 29 mmol/L 02/15/2025 8:33 AM EDT [facility] Anion Gap 11 7 - 16 mmol/L 02/15/2025 8:33 AM EDT [facility] Calcium 7.8(L) 8.6 - 10.4 mg/dL 02/15/2025 8:33 AM EDT [facility] Glucose Lvl 196(H) 70 - 99 mg/dL 02/15/2025 8:33 AM EDT [facility] BUN 19 6 - 20 mg/dL 02/15/2025 8:33 AM EDT [facility] Creatinine 1.29 0.51 - 1.30 mg/dL 02/15/2025 8:33 AM EDT [facility] Albumin 3.2(L) 3.5 - 5.2 gm/dL 02/15/2025 8:33 AM EDT [facility] Total Protein 6.2(L) 6.4 - 8.3 gm/dL 02/15/2025 8:33 AM EDT [facility] Bili Total 0.7 0.2 - 1.3 mg/dL 02/15/2025 8:33 AM EDT [facility] ALT 12 <=41 U/L 02/15/2025 8:33 AM EDT [facility] AST 17 <=40 U/L 02/15/2025 8:33 AM EDT [facility] Alk Phos 117 36 - 123 U/L 02/15/2025 8:33 AM EDT [facility] eGFR (CKD-EPIcr 2020) 52(L) >=60 mL/min/1.7 3 m2 02/15/2025 8:33 AM EDT [facility] Comment:Estimated GFR was ca lculated using the CKD-EPIcr (2020) equation refit without race. The equation is recommended by the [employer] Kidney [employer] - [place] [employer] Nephrology Task Force. Blood VENOUS BLOOD / Unknown Venipuncture / Unknown 02/15/2025 7:25 AM EDT 02/15/2025 8:09 AM EDT us Benoit Alvarez MD CHEMISTRY ORDERABLES Final Resu lt [facility] [address] [place] [address] * ECG AND WAVEFORMS - TELEMETRY (02/15/2025 7:07 AM EDT) ECG INTERPRET Ventricular Tachycardia [facility] 02/15/2025 7:07 AM EDT Narrative [facility] - 02/15/2025 7:09 AM EDT 8 BTS NASVT See Clinical Report link for waveform capture us Unknown Provider POINT OF CARE CARDIOLOGY Final Result Performing Organization Address [place] Co de Phone Number [facility] [address] [place] [id number] * ECG AND WAVEFORMS - TELEMETRY (02/15/2025 7:02 AM EDT) ECG INTERPRET NSR [facility] 02/15/2025 7:02 AM EDT Narrative [facility] - 02/15/2025 8:47 AM EDT AM ROUTINE ME 0.21 QRS 0.09 RR 0.87 QT 0.44 QTc 0.47 See Clinical Report link for waveform capture us Unknown Provider POINT OF CARE CARDIOLOGY Final Result Performing Organization Address [facility] de Phone Number [facility] [address] [place] [address] * (ABNORMAL) GLUCOSE METER POC (02/14/2025 10:33 PM EDT) Glucose Meter POC 177(H) 70 - 100 mg/dL 02/14/2025 10:36 PM EDT [facility] Sample Type Capillary 02/14/2025 10:36 PM EDT [facility] Patient Status Non-Critical Patient 02/14/2025 10:36 PM EDT [facility] Blood BLOOD SPECIMEN / Unknown 02/14/2025 10:33 PM EDT 02/14/2025 10:36 PM EDT Benoit Alvarez MD POINT OF CARE TEST ORDERABLES F inal Result Performing Organization Address [place] Co de Phone Number [facility] [address] [place] [address] * ECG AND WAVEFORMS - TELEMETRY (02/14/2025 7:10 PM EDT) [facility] Signature ECG INTERPRET NSR [facility] 02/14/2025 7:10 PM EDT Narrative [facility] - 02/14/2025 7:13 PM EDT HC/ROUTINE ME 0.17 QRS 0.12 QT 0.41 See Clinical Report link for waveform capture us Unknown Provider POINT OF CARE CARDIOLOGY Final Result Performing Organization Address [place] de Phone Number [facility] [address] [place] [address] * (ABNORMAL) GLUCOSE METER POC (02/14/2025 4:43 PM EDT) [facility] Signature Glucose Meter POC 215(H) 70 - 100 mg/dL 02/14/2025 4:45 PM EDT [facility] Sample Type Capillary 02/14/2025 4:45 PM EDT [facility] Patient Status Non-Critical Patient 02/14/2025 4:45 PM EDT [facility] Blood BLOOD SPECIMEN / Unknown 02/14/2025 4:43 PM EDT 02/14/2025 4:45 PM EDT us Benoit Alvarez MD POINT OF CARE TEST ORDERABLES F inal Result Performing Organization Address [place] Co de Phone Number [facility] [address] [place] [address] * (ABNORMAL) GLUCOSE METER POC (02/14/2025 11:24 AM EDT) Glucose Meter POC 182(H) 70 - 100 mg/dL 02/14/2025 11:26 AM EDT [facility] Sample Type Capillary 02/14/2025 11:26 AM EDT [facility] Patient Status Non-Critical Patient 02/14/2025 11:26 AM EDT [facility] Blood BLOOD SPECIMEN / Unknown 02/14/2025 11:24 AM EDT 02/14/2025 11:26 AM EDT Benoit Alvarez MD POINT OF CARE TEST ORDERABLES F inal Result Performing Organization Address [facility] de Phone Number [facility] [address] [place] [address] * (ABNORMAL) GLUCOSE METER POC (02/14/2025 7:58 AM EDT) Glucose Meter POC 197(H) 70 - 100 mg/dL 02/14/2025 8:08 AM EDT [facility] Sample Type Capillary 02/14/2025 8:08 AM EDT [facility] Patient Status Non-Critical Patient 02/14/2025 8:08 AM EDT [facility] Blood BLOOD SPECIMEN / Unknown 02/14/2025 7:58 AM EDT 02/14/2025 8:08 AM EDT Osvaldo Pemberton MD POINT OF CARE TEST ORDERABLES Fi nal Result Performing Organization Address [facility] de Phone Number [address] [address] * ECG AND WAVEFORMS - TELEMETRY (02/14/2025 7:03 AM EDT) ECG INTERPRET NSR [facility] 02/14/2025 7:03 AM EDT Narrative [facility] - 02/14/2025 8:20 AM EDT AM ROUTINE ME 0.18 QRS 0.10 RR 0.93 QT 0.46 QTc 0.48 See Clinical Report link for waveform capture us Unknown Provider POINT OF CARE CARDIOLOGY Final Result Performing Organization Address City/[facility] Co de Phone Number [facility] [address] [place] [address] * FERRITIN (02/14/2025 6:54 AM EDT) Ferritin 50 30 - 150 ng/mL 02/14/2025 2:23 PM EDT [facility], [facility] Comment:The lower threshold of 30 is not statistically defined, nor internally validated. The threshold has been updated to more closely reflect a physiologic basis. Crystal Z, et al. Physiologically based serum ferritin thresholds for iron deficiency in children and non- women: a [place] National Health and Nutrition Examination Surveys (NHANES) serial cross-sectional study. Lancet Haematol 2021;8:e572-82. Blood VENOUS BLOOD / Unknown Venipuncture / Unknown 02/14/2025 6:54 AM EDT 02/14/2025 7:06 AM EDT Narrative [facility] - 02/14/2025 2:23 PM EDT Ingestion of tom doses of biotin (>5 mg/day) taken within 8 hours of drawing blood sample can interfere with this immunoassay test. [facility]anda [facility] CHEMISTRY ORDERABLES Zayra l Result [facility] [address] [place] [address] [facility] [employer], [facility] [address], [place] [address] * (ABNORMAL) IRON+TIBC (02/14/2025 6:54 AM EDT) Iron 20(L) 30 - 160 mcg/dL 02/14/2025 12:15 PM EDT [facility], [facility] Transferrin 191(L) 200 - 360 mg/dL 02/14/2025 12:15 PM EDT [facility], [facility] Transferrin Saturation 7(L) 20 - 50 % 02/14/2025 12:15 PM EDT [facility], [facility] TIBC 267 250 - 400 mcg/dL 02/14/2025 12:15 PM EDT [facility], [facility] Blood VENOUS BLOOD / Unknown Venipuncture / Unknown 02/14/2025 6:54 AM EDT 02/14/2025 7:06 AM EDT us Benoit Alvarez MD CHEMISTRY ORDERABLES Final Resu lt [facility] [address] [place] [address] PREFERRED [facility] [employer] [address], [place] [address] * (ABNORMAL) COMPREHENSIVE METABOLIC PANEL (02/14/2025 6:54 AM EDT) Sodium 139 136 - 145 mmol/L 02/14/2025 7:26 AM EDT [facility] Potassium 3.9 3.5 - 5.0 mmol/L 02/14/2025 7:26 AM EDT [facility] Chloride 103 98 - 107 mmol/L 02/14/2025 7:26 AM EDT [facility] Total CO2 27 22 - 29 mmol/L 02/14/2025 7:26 AM EDT [facility] Anion Gap 9 7 - 16 mmol/L 02/14/2025 7:26 AM EDT [facility] Calcium 7.6(L) 8.6 - 10.4 mg/dL 02/14/2025 7:26 AM EDT [facility] Glucose Lvl 223(H) 70 - 99 mg/dL 02/14/2025 7:26 AM EDT [facility] BUN 17 6 - 20 mg/dL 02/14/2025 7:26 AM EDT [facility] Creatinine 1.36(H) 0.51 - 1.30 mg/dL 02/14/2025 7:26 AM EDT [facility] Albumin 3.1(L) 3.5 - 5.2 gm/dL 02/14/2025 7:26 AM EDT [facility] Total Protein 6.0(L) 6.4 - 8.3 gm/dL 02/14/2025 7:26 AM EDT [facility] Bili Total 0.8 0.2 - 1.3 mg/dL 02/14/2025 7:26 AM EDT [facility] ALT 11 <=41 U/L 02/14/2025 7:26 AM EDT [facility] AST 13 <=40 U/L 02/14/2025 7:26 AM EDT [facility] Alk Phos 112 36 - 123 U/L 02/14/2025 7:26 AM EDT [facility] eGFR (CKD-EPIcr 2020) 49(L) >=60 mL/min/1.7 3 m2 02/14/2025 7:26 AM EDT [facility] Comment:Estimated GFR was ca lculated using the CKD-EPIcr (2020) equation refit without race. The equation is recommended by the National Kidney Foundation - [place] [employer] Nephrology Task Force. Blood VENOUS BLOOD / Unknown Venipuncture / Unknown 02/14/2025 6:54 AM EDT 02/14/2025 7:06 AM EDT us Benoit Alvarez MD CHEMISTRY ORDERABLES Final Resu lt Performing Organization Address City/[facility] de Phone Number [facility] [address] [place], [place] [id number] * (ABNORMAL) PT / INR (02/14/2025 6:54 AM EDT) PT 36.0(H) 10.5 - 13.6 second(s) 02/14/2025 8:08 AM EDT [facility] INR 3.06(H) 0.91 - 1.18 (ratio) 02/14/2025 8:08 AM EDT [facility] Comment: Level of Therapy Indications Target INR Range Standard Dose Treatment and prophylaxis of venous 2.0 - 3.0 thrombosis, pulmonary embolism High Dose High risk patients with mechanical 2.5 - 3.5 heart valves Blood VENOUS BLOOD / Unknown Venipuncture / Unknown 02/14/2025 6:54 AM EDT 02/14/2025 7:29 AM EDT Karla Guillory APRN HEMATOLOGY ORDERABLE S Final Result Performing Organization Address [place]/State/ZIP Co de Phone Number [facility] [address] [place] [address] * (ABNORMAL) CBC (02/14/2025 6:54 AM EDT) WBC 6.8 3.7 - 10.3 x10(3)/mcL 02/14/2025 7:08 AM EDT [facility] RBC 3.96 3.90 - 5.20 x10(6)/mcL 02/14/2025 7:08 AM EDT [facility] Hgb 8.8(L) 11.2 - 15.7 g/dL 02/14/2025 7:08 AM EDT [facility] Hct 29.4(L) 34.0 - 45.0 % 02/14/2025 7:08 AM EDT [facility] MCV 74.2(L) 80.0 - 100.0 fL 02/14/2025 7:08 AM EDT [facility] MCH 22.2(L) 26.0 - 34.0 pg 02/14/2025 7:08 AM EDT [facility] MCHC 29.9(L) 30.7 - 35.5 g/dL 02/14/2025 7:08 AM EDT [facility] RDW 19.0(H) <=14.9 % 02/14/2025 7:08 AM EDT [facility] Platelet 236 155 - 369 x10(3)/mcL 02/14/2025 7:08 AM EDT [facility] MPV 10.7 8.8 - 12.5 fL 02/14/2025 7:08 AM EDT [facility] Blood VENOUS BLOOD / Unknown Venipuncture / Unknown 02/14/2025 6:54 AM EDT 02/14/2025 7:06 AM EDT us Benoit Alvarez MD HEMATOLOGY ORDERABLES Final Res ult [facility] [address] [address] * (ABNORMAL) GLUCOSE METER POC (02/13/2025 8:56 PM EDT) Glucose Meter POC 191(H) 70 - 100 mg/dL 02/13/2025 8:57 PM EDT [facility] Sample Type Capillary 02/13/2025 8:57 PM EDT [facility] Patient Status Non-Critical Patient 02/13/2025 8:57 PM EDT [facility] Blood BLOOD SPECIMEN / Unknown 02/13/2025 8:56 PM EDT 02/13/2025 8:57 PM EDT us Osvaldo Pemberton MD POINT OF CARE TEST ORDERABLES Fi nal Result Performing Organization Address City/[facility]/ZIP Co de Phone Number [facility] [address] [place] [address] * ECG AND WAVEFORMS - TELEMETRY (02/13/2025 7:04 PM EDT) ECG INTERPRET NSR [facility] 02/13/2025 7:04 PM EDT Narrative [facility] - 02/13/2025 10:35 PM EDT VR, ROUTINE ME 0.17 QRS 0.11 RR 0.75 QT 0.41 QTc 0.47 See Clinical Report link for waveform capture us Unknown Provider POINT OF CARE CARDIOLOGY Final Result [facility] [address] [place] [phone] * (ABNORMAL) GLUCOSE METER POC (02/13/2025 6:23 PM EDT) Glucose Meter POC 167(H) 70 - 100 mg/dL 02/13/2025 6:24 PM EDT [facility] Sample Type Capillary 02/13/2025 6:24 PM EDT [facility] Patient Status Non-Critical Patient 02/13/2025 6:24 PM EDT [facility] Blood BLOOD SPECIMEN / Unknown 02/13/2025 6:23 PM EDT 02/13/2025 6:24 PM EDT us Osvaldo Pemberton MD POINT OF CARE TEST ORDERABLES Fi nal Result Performing Organization Address [facility] de Phone Number [facility] [address] [place] [address] * (ABNORMAL) GLUCOSE METER POC (02/13/2025 1:54 PM EDT) Glucose Meter POC 181(H) 70 - 100 mg/dL 02/13/2025 1:55 PM EDT [facility] Sample Type Capillary 02/13/2025 1:55 PM EDT [facility] Patient Status Non-Critical Patient 02/13/2025 1:55 PM EDT [facility] Blood BLOOD SPECIMEN / Unknown 02/13/2025 1:54 PM EDT 02/13/2025 1:55 PM EDT Osvaldo Pemberton MD POINT OF CARE TEST ORDERABLES Fi nal Result Performing Organization Address [facility] Phone Number [facility] [address] [place] [address] * SCANNED EKG (02/13/2025 11:28 AM EDT) Anatomical Region Laterality Modality Other 02/13/2025 11:2 8 AM EDT Unknown Provider IMG ECG ORDERABLES Final Result * (ABNORMAL) GLUCOSE METER POC (02/13/2025 8:34 AM EDT) Glucose Meter POC 162(H) 70 - 100 mg/dL 02/13/2025 8:35 AM EDT [facility] Sample Type Capillary 02/13/2025 8:35 AM EDT [facility] Patient Status Non-Critical Patient 02/13/2025 8:35 AM EDT [facility] Blood BLOOD SPECIMEN / Unknown 02/13/2025 8:34 AM EDT 02/13/2025 8:35 AM EDT Benoit Alvarez MD POINT OF CARE TEST ORDERABLES F inal Result Performing Organization Address [place] Co de Phone Number [facility] [address] [place] [address] * ECG AND WAVEFORMS - TELEMETRY (02/13/2025 7:00 AM EDT) [facility] ECG INTERPRET NSR [facility] 02/13/2025 7:00 AM EDT Narrative [facility] - 02/13/2025 7:33 AM EDT TRO/AM ROUTINE ME 0.16 QRS 0.11 RR 0.87 QT 0.43 QTc 0.46 See Clinical Report link for waveform capture us Unknown Provider POINT OF CARE CARDIOLOGY Final Result Performing Organization Address [place] de Phone Number [facility] [address] [place] [phone] * (ABNORMAL) COMPREHENSIVE METABOLIC PANEL (02/13/2025 6:24 AM EDT) [facility] Sodium 138 136 - 145 mmol/L 02/13/2025 7:01 AM EDT [facility] Potassium 3.4(L) 3.5 - 5.0 mmol/L 02/13/2025 7:01 AM EDT [facility] Chloride 104 98 - 107 mmol/L 02/13/2025 7:01 AM EDT [facility] Total CO2 24 22 - 29 mmol/L 02/13/2025 7:01 AM EDT [facility] Anion Gap 10 7 - 16 mmol/L 02/13/2025 7:01 AM EDT [facility] Calcium 7.6(L) 8.6 - 10.4 mg/dL 02/13/2025 7:01 AM EDT [facility] Glucose Lvl 163(H) 70 - 99 mg/dL 02/13/2025 7:01 AM EDT [facility] BUN 11 6 - 20 mg/dL 02/13/2025 7:01 AM EDT [facility] Creatinine 1.35(H) 0.51 - 1.30 mg/dL 02/13/2025 7:01 AM EDT [facility] Albumin 3.1(L) 3.5 - 5.2 gm/dL 02/13/2025 7:01 AM EDT [facility] Total Protein 6.1(L) 6.4 - 8.3 gm/dL 02/13/2025 7:01 AM EDT [facility] Bili Total 1.2 0.2 - 1.3 mg/dL 02/13/2025 7:01 AM EDT [facility] ALT 10 <=41 U/L 02/13/2025 7:01 AM EDT [facility] AST 15 <=40 U/L 02/13/2025 7:01 AM EDT [facility] Alk Phos 118 36 - 123 U/L 02/13/2025 7:01 AM EDT [facility] eGFR (CKD-EPIcr 2020) 49(L) >=60 mL/min/1.7 3 m2 02/13/2025 7:01 AM EDT [facility] Comment:Estimated GFR was ca lculated using the CKD-EPIcr (2020) equation refit without race. The equation is recommended by the [employer] - [place] [employer] Neph[employer] Task Force. Blood VENOUS BLOOD / Unknown Venipuncture / Unknown 02/13/2025 6:24 AM EDT 02/13/2025 6:39 AM EDT us Benoit Alvarez MD CHEMISTRY ORDERABLES Final Resu lt [facility] [address] [facility] [place] [address] * (ABNORMAL) PT / INR (02/13/2025 6:24 AM EDT) PT 31.2(H) 10.5 - 13.6 second(s) 02/13/2025 6:51 AM EDT [facility] INR 2.66(H) 0.91 - 1.18 (ratio) 02/13/2025 6:51 AM EDT [facility] Comment: Level of Therapy Indications Target INR Range Standard Dose Treatment and prophylaxis of venous 2.0 - 3.0 thrombosis, pulmonary embolism High Dose High risk patients with mechanical 2.5 - 3.5 heart valves Blood VENOUS BLOOD / Unknown Venipuncture / Unknown 02/13/2025 6:24 AM EDT 02/13/2025 6:39 AM EDT us Karla Guillory PATCH MACHINE OPERATOR HEMATOLOGY ORDERABLE S Final Result [facility] [address] [place] [address] * (ABNORMAL) CBC (02/13/2025 6:24 AM EDT) WBC 6.2 3.7 - 10.3 x10(3)/mcL 02/13/2025 6:44 AM EDT [facility] RBC 3.97 3.90 - 5.20 x10(6)/mcL 02/13/2025 6:44 AM EDT [facility] Hgb 8.6(L) 11.2 - 15.7 g/dL 02/13/2025 6:44 AM EDT [facility] Hct 29.5(L) 34.0 - 45.0 % 02/13/2025 6:44 AM EDT [facility] MCV 74.3(L) 80.0 - 100.0 fL 02/13/2025 6:44 AM EDT [facility] MCH 21.7(L) 26.0 - 34.0 pg 02/13/2025 6:44 AM EDT [facility] MCHC 29.2(L) 30.7 - 35.5 g/dL 02/13/2025 6:44 AM EDT [facility] RDW 19.4(H) <=14.9 % 02/13/2025 6:44 AM EDT [facility] Platelet 231 155 - 369 x10(3)/mcL 02/13/2025 6:44 AM EDT [facility] MPV 11.1 8.8 - 12.5 fL 02/13/2025 6:44 AM EDT [facility] Blood VENOUS BLOOD / Unknown Venipuncture / Unknown 02/13/2025 6:24 AM EDT 02/13/2025 6:39 AM EDT Benoit Alvarez MD HEMATOLOGY ORDERABLES Final Res ult Performing Organization Address [facility] de Phone Number [facility] [address] [place] [address] * (ABNORMAL) GLUCOSE METER POC (02/12/2025 9:06 PM EDT) Glucose Meter POC 171(H) 70 - 100 mg/dL 02/12/2025 9:08 PM EDT [facility] Sample Type Capillary 02/12/2025 9:08 PM EDT [facility] Patient Status Non-Critical Patient 02/12/2025 9:08 PM EDT [facility] Blood BLOOD SPECIMEN / Unknown 02/12/2025 9:06 PM EDT 02/12/2025 9:08 PM EDT Benoit Alvarez MD POINT OF CARE TEST ORDERABLES F inal Result Performing Organization Address [facility] Co de Phone Number [facility] [address] [place] [address] * ECG AND WAVEFORMS - TELEMETRY (02/12/2025 7:38 PM EDT) [facility] ECG INTERPRET NSR [facility] 02/12/2025 7:38 PM EDT Narrative [facility] - 02/12/2025 8:54 PM EDT ME 0.18 QRS 0.09 RR 0.68 QT 0.38 See Clinical Report link for waveform capture us Unknown Provider POINT OF CARE CARDIOLOGY Final Result Performing Organization Address [facility] Co de Phone Number [facility] [address] [place], [place] [id number] * (ABNORMAL) GLUCOSE METER POC (02/12/2025 5:18 PM EDT) Glucose Meter POC 202(H) 70 - 100 mg/dL 02/12/2025 5:20 PM EDT [facility] Sample Type Capillary 02/12/2025 5:20 PM EDT [facility] Patient Status Non-Critical Patient 02/12/2025 5:20 PM EDT [facility] Blood BLOOD SPECIMEN / Unknown 02/12/2025 5:18 PM EDT 02/12/2025 5:20 PM EDT Benoit Alvarez MD POINT OF CARE TEST ORDERABLES F inal Result Performing Organization Address [facility] de Phone Number [facility] [address] [place] [address] * (ABNORMAL) GLUCOSE METER POC (02/12/2025 12:46 PM EDT) Glucose Meter POC 149(H) 70 - 100 mg/dL 02/12/2025 12:47 PM EDT [facility] Sample Type Capillary 02/12/2025 12:47 PM EDT [facility] Patient Status Non-Critical Patient 02/12/2025 12:47 PM EDT [facility] Blood BLOOD SPECIMEN / Unknown 02/12/2025 12:46 PM EDT 02/12/2025 12:47 PM EDT Benoit Alvarez MD POINT OF CARE TEST ORDERABLES F inal Result Performing Organization Address [facility] Co de Phone Number [facility] [address] [place] [address] * EC ECHOCARDIOGRAM 2D M MODE COMPLETE W CONTRAST (02/12/2025 12:39 PM EDT) LV DIASTOLIC PLAX [phone] cm PYRAMIS Ejection Fraction 60-65% PYRAMIS MITRAL REGURGITATION no PYRAMIS AORTIC STENOSIS no PYRAMIS Anatomical Region Laterality Modality Electrocardiogra phy 02/12/2025 11:5 9 AM EDT Impressions 02/12/2025 4:18 PM EDT Conclusions * Left ventricle is not well visualized. * Left ventricular function is normal with an estimated ejection fraction of 60-65%. * Left ventricular segmental wall motion is grossly normal, however endocardial definition is limited. * The left ventricular diastolic function is indeterminate. * Right ventricle is not well visualized. * Right ventricular systolic function is normal by objective measurements, with a tricuspid annular plane systolic excursion of 2.4 cm and a RV s' of 16.3 cm/s. Narrative Procedure Note Mustapha Piper MD - 02/12/2025 IMPRESSION Conclusions * Left ventricle is not well visualized. * Left ventricular function is normal with an estimated ejectionfraction of 60-65%. * Left ventricular segmental wall motion is grossly normal, however endocardial definition is limited. * The left ventricular diastolic function is indeterminate. * Right ventricle is not well visualized. * Right ventricular systolic function is normal by objectivemeasurements, with a tricuspid annular plane systolic excursion of 2.4 cm and a RV s'of 16.3 cm/s. us Benoit Alvarez MD IMG ECHO ORDERABLES Final Resul t * ECG AND WAVEFORMS - TELEMETRY (02/12/2025 11:41 AM EDT) ECG INTERPRET Other [facility] Comment:artifact 02/12/2025 11:4 1 AM EDT Narrative [facility] - 02/12/2025 11:45 AM EDT RT FALSE See Clinical Report link for waveform capture us Unknown Provider POINT OF CARE CARDIOLOGY Final Result [facility] [address] [place] [address] * (ABNORMAL) HEMOGLOBIN A1C (02/12/2025 9:35 AM EDT) Pathologist [facility] Hgb A1C 7.6(H) 4.2 - 5.6 % 02/12/2025 9:20 PM EDT [facility] [place] [facility] Est. Avg Glucose 171 mg/dL 02/12/2025 9:20 PM EDT [facility] [place] [facility] Blood VENOUS BLOOD / Unknown Venipuncture / Unknown 02/12/2025 9:35 AM EDT 02/12/2025 10:06 AM EDT Narrative [facility] [place] [facility] - 02/12/2025 9:20 PM EDT REFERENCE RANGE: Normal: 4.0-5.6% Pre-diabetes: 5.7-6.4% Provisional diagnosis of diabetes: >6.4% Hgb F>10% and anything which shortens red cell survival, such as hemolytic anemia, or unstable hemoglobin variants such as HbSS, HbSC, or HbCC, will lower the HbA1c value associated with a given level of glycemic control. us Benoit Alvarez MD CHEMISTRY ORDERABLES Final Resu lt [facility] [place] [facility] [address] [facility] , [place] [address] * (ABNORMAL) COMPREHENSIVE METABOLIC PANEL (02/12/2025 9:35 AM EDT) Pathologist [facility] Sodium 140 136 - 145 mmol/L 02/12/2025 10:28 AM EDT [facility] Potassium 3.6 3.5 - 5.0 mmol/L 02/12/2025 10:28 AM EDT [facility] Chloride 106 98 - 107 mmol/L 02/12/2025 10:28 AM EDT [facility] Total CO2 22 22 - 29 mmol/L 02/12/2025 10:28 AM EDT [facility] Anion Gap 12 7 - 16 mmol/L 02/12/2025 10:28 AM EDT [facility] Calcium 7.9(L) 8.6 - 10.4 mg/dL 02/12/2025 10:28 AM EDT [facility] Glucose Lvl 146(H) 70 - 99 mg/dL 02/12/2025 10:28 AM EDT [facility] BUN 10 6 - 20 mg/dL 02/12/2025 10:28 AM EDT [facility] Creatinine 1.08 0.51 - 1.30 mg/dL 02/12/2025 10:28 AM EDT [facility] Albumin 3.4(L) 3.5 - 5.2 gm/dL 02/12/2025 10:28 AM EDT [facility] Total Protein 6.7 6.4 - 8.3 gm/dL 02/12/2025 10:28 AM EDT [facility] Bili Total 1.3 0.2 - 1.3 mg/dL 02/12/2025 10:28 AM EDT [facility] ALT 12 <=41 U/L 02/12/2025 10:28 AM EDT [facility] AST 15 <=40 U/L 02/12/2025 10:28 AM EDT [facility] Alk Phos 137(H) 36 - 123 U/L 02/12/2025 10:28 AM EDT [facility] eGFR (CKD-EPIcr 2020) 65 >=60 mL/min/1.7 3 m2 02/12/2025 10:28 AM EDT [facility] Comment:Estimated GFR was ca lculated using the CKD-EPIcr (2020) equation refit without race. The equation is recommended by the [employer] Kid[employer] - [place] [employer] Nephrology Task Force. Blood VENOUS BLOOD / Unknown Venipuncture / Unknown 02/12/2025 9:35 AM EDT 02/12/2025 10:06 AM EDT us Benoit Alvarez MD CHEMISTRY ORDERABLES Final Resu lt [facility] [address] [place] [address] * (ABNORMAL) CBC (02/12/2025 9:35 AM EDT) [facility] WBC 7.2 3.7 - 10.3 x10(3)/mcL 02/12/2025 10:09 AM EDT [facility] RBC 4.31 3.90 - 5.20 x10(6)/mcL 02/12/2025 10:09 AM EDT [facility] Hgb 9.5(L) 11.2 - 15.7 g/dL 02/12/2025 10:09 AM EDT [facility] Hct 31.5(L) 34.0 - 45.0 % 02/12/2025 10:09 AM EDT [facility] MCV 73.1(L) 80.0 - 100.0 fL 02/12/2025 10:09 AM EDT [facility] MCH 22.0(L) 26.0 - 34.0 pg 02/12/2025 10:09 AM EDT [facility] MCHC 30.2(L) 30.7 - 35.5 g/dL 02/12/2025 10:09 AM EDT [facility] RDW 19.1(H) <=14.9 % 02/12/2025 10:09 AM EDT [facility] Platelet 278 155 - 369 x10(3)/mcL 02/12/2025 10:09 AM EDT [facility] MPV 10.8 8.8 - 12.5 fL 02/12/2025 10:09 AM EDT [facility] Blood VENOUS BLOOD / Unknown Venipuncture / Unknown 02/12/2025 9:35 AM EDT 02/12/2025 10:06 AM EDT us Benoit Alvarez MD HEMATOLOGY ORDERABLES Final Res ult [facility] [address] [place] [address] * (ABNORMAL) GLUCOSE METER POC (02/12/2025 8:22 AM EDT) [facility] Glucose Meter POC 146(H) 70 - 100 mg/dL 02/12/2025 8:24 AM EDT [facility] Sample Type Capillary 02/12/2025 8:24 AM EDT [facility] Patient Status Non-Critical Patient 02/12/2025 8:24 AM EDT [facility] Blood BLOOD SPECIMEN / Unknown 02/12/2025 8:22 AM EDT 02/12/2025 8:24 AM EDT us Benoit Alvarez MD POINT OF CARE TEST ORDERABLES F inal Result [facility] [address] [facility] [place] [address] * CT CHEST WO CONTRAST (02/12/2025 7:49 AM EDT) Anatomical Region Laterality Modality Chest Computed Tomogra phy 02/12/2025 7:49 AM EDT Impressions 02/12/2025 8:16 AM EDT Essentially resolved right lung opacities, likely an infectious pneumonia. - Note: Radiology results need to be interpreted within a comprehensive clinical context. If you have questions about the radiology report, please contact the office of the ordering clinician. Narrative 02/12/2025 8:[address] CHEST WITHOUT CONTRAST, 02/12/2025 7:49 AM CLINICAL HISTORY: -f/u PNA, SOB. COMPARISON: CT 01/13/2025. PROCEDURE COMMENTS: Multi-detector CT of the chest with multiplanar reconstructions per protocol. No contrast given. Dose 1 : CT DLP Total : 1054.42 mGycm DLP Spiral Max : 1046.22 mGycm Maximum CTDI Vol : 22.83 mGy FINDINGS: Limited by habitus. Previously seen opacities within the right lung have almost completely resolved. No new focal consolidation. Mild dependent atelectasis in the right. No suspicious pulmonary mass. No pleural effusion or pneumothorax. Suspect a few mildly enlarged mediastinal lymph nodes, possibly reactive. Heart is grossly unremarkable. Coronary artery calcification: None. No acute abnormality in the visualized upper abdomen. Procedure Note Pedro Cornell MD - 02/12/2025 CT CHEST WITHOUT CONTRAST, 02/12/2025 7:49 AM CLINICAL HISTORY: -f/u PNA, SOB. COMPARISON: CT 01/13/2025. PROCEDURE COMMENTS: Multi-detector CT of the chest with multiplanar reconstructions per protocol. No contrast given. Dose 1 : CT DLP Total : 1054.42 mGycm DLP Spiral Max : 1046.22 mGycm Maximum CTDI Vol : 22.83 mGy FINDINGS: Limited by habitus. Previously seen opacities within the right lung have almost completelyresolved. No new focal consolidation. Mild dependent atelectasis in the right. No suspicious pulmonary mass. No pleural effusion or pneumothorax. Suspect a few mildly enlarged mediastinal lymph nodes, possibly reactive.Heart is grossly unremarkable. Coronary artery calcification: None. No acute abnormality in the visualized upper abdomen. IMPRESSION: Essentially resolved right lung opacities, likely an infectiouspneumonia. - Note: Radiology results need to be interpreted within a comprehensiveclinical context. If you have questions about the radiology report, please contactthe office of the ordering clinician. us Jennifer Costello DO IMFelipa CT ORDERABLES Final Result * ECG AND WAVEFORMS - TELEMETRY (02/12/2025 7:00 AM EDT) ECG INTERPRET [facility] 02/12/2025 7:00 AM EDT Narrative [facility] - 02/12/2025 7:51 AM EDT TRO/AM ROUTINE ME 0.20 QRS 0.09 RR 0.85 QT 0.34 QTc 0.37 See Clinical Report link for waveform capture us Unknown Provider POINT OF CARE CARDIOLOGY Final Result [facility] [address] [place] [address] * ECG AND WAVEFORMS - TELEMETRY (02/12/2025 6:17 AM EDT) [facility] 02/12/2025 6:17 AM EDT Narrative [facility] - 02/12/2025 6:19 AM EDT NEW ADMIT/JF ME 0.20 QRS 0.09 RR 0.91 QT 0.46 QTc 0.48 See Clinical Report link for waveform capture us Unknown Provider POINT OF CARE CARDIOLOGY Final Result Performing Organization Address [place]/ZIP Co de Phone Number [facility] [address] [place] [address] * (ABNORMAL) TROPONIN-T HIGH SENSITIVITY 2HR (02/12/2025 4:08 AM EDT) za-eYpotkubt-C 2HR 27(H) <14 ng/L 02/12/2025 4:27 AM EDT [facility] hs-cTnT 2Hr Delta from Baseline -4 <4 ng/L 02/12/2025 4:27 AM EDT [facility] Blood VENOUS BLOOD / Unknown Venipuncture / Unknown 02/12/2025 4:08 AM EDT 02/12/2025 4:11 AM EDT Narrative [facility] - 02/12/2025 4:27 AM EDT Ingestion of tom doses of biotin (>5 mg/day) taken within 8 hours of drawing blood sample can interfere with this immunoassay test. us Jennifer Costello DO CHEMISTRY ORDERABLES Final Res ult Performing Organization Address [place] de Phone Number [facility] [address] [place] [address] * (ABNORMAL) NT PROBNP (02/12/2025 2:21 AM EDT) NT Pro-BNP 2,038(H) <=192 pg/mL 02/12/2025 4:06 AM EDT [facility] Blood VENOUS BLOOD / Unknown Venipuncture / Unknown 02/12/2025 2:21 AM EDT 02/12/2025 2:27 AM EDT Narrative [facility] - 02/12/2025 4:06 AM EDT An NT pro-BNP level less than 300 pg/mL in any patient, regardless of age, effectively rules out acute CHF with a 99% negative predictive value. Ingestion of tom doses of biotin (>5 mg/day) taken within 8 hours of drawing blood sample can interfere with this immunoassay test. us Jennifer Costello DO CHEMISTRY ORDERABLES Final Res ult [facility] [address] [place] [address] * (ABNORMAL) BASIC METABOLIC PANEL (02/12/2025 2:21 AM EDT) Sodium 139 136 - 145 mmol/L 02/12/2025 2:45 AM EDT [facility] Potassium 3.7 3.5 - 5.0 mmol/L 02/12/2025 2:45 AM EDT [facility] Chloride 105 98 - 107 mmol/L 02/12/2025 2:45 AM EDT [facility] Total CO2 22 22 - 29 mmol/L 02/12/2025 2:45 AM EDT [facility] Anion Gap 12 7 - 16 mmol/L 02/12/2025 2:45 AM EDT [facility] Calcium 7.7(L) 8.6 - 10.4 mg/dL 02/12/2025 2:45 AM EDT [facility] Glucose Lvl 175(H) 70 - 99 mg/dL 02/12/2025 2:45 AM EDT [facility] BUN 10 6 - 20 mg/dL 02/12/2025 2:45 AM EDT [facility] Creatinine 1.08 0.51 - 1.30 mg/dL 02/12/2025 2:45 AM EDT [facility] eGFR (CKD-EPIcr 2020) 65 >=60 mL/min/1.7 3 m2 02/12/2025 2:45 AM EDT [facility] Comment:Estimated GFR was ca lculated using the CKD-EPIcr (2020) equation refit without race. The equation is recommended by the [employer] - [place] [employer] Neph[employer] Task Force. Blood VENOUS BLOOD / Unknown Venipuncture / Unknown 02/12/2025 2:21 AM EDT 02/12/2025 2:27 AM EDT Jennifer Costello DO CHEMISTRY ORDERABLES Final Res ult Performing Organization Address [facility] de Phone Number [facility] [address] [place] [address] * (ABNORMAL) TROPONIN-T HIGH SENSITIVITY BASELINE W/ REFLEX (02/12/2025 2:21 AM EDT) gl-qYtsvtamw-Q 31(H) <14 ng/L 02/12/2025 2:47 AM EDT [facility] Blood VENOUS BLOOD / Unknown Venipuncture / Unknown 02/12/2025 2:21 AM EDT 02/12/2025 2:27 AM EDT Narrative [facility] - 02/12/2025 2:47 AM EDT Ingestion of tom doses of biotin (>5 mg/day) taken within 8 hours of drawing blood sample can interfere with this immunoassay test. Jennifer Costello DO CHEMISTRY ORDERABLES Final Res ult Performing Organization Address [facility] de Phone Number [facility] [address] [facility] [address] * (ABNORMAL) BLOOD GAS, VENOUS (02/12/2025 2:21 AM EDT) pH Venous 7.38 7.32 - 7.42 pH 02/12/2025 2:30 AM EDT [facility] pCO2 Venous 42 41 - 51 mmHg 02/12/2025 2:30 AM EDT [facility] pO2 Venous 40 25 - 40 mmHg 02/12/2025 2:30 AM EDT [facility] Comment:Interpret with cauti on. Not recommended to evaluate patient's oxygenation status. Base Excess David -0.3 mmol/L 2:30 AM EDT [facility] Hco3 Venous 24.9 24.0 - 28.0 mmol/L 02/12/2025 2:30 AM EDT [facility] CO2 Total David 24(L) 25 - 29 mmol/L 02/12/2025 2:30 AM EDT [facility] O2 Sat. Venous 74.2(H) 40.0 - 70.0 % 02/12/2025 2:30 AM EDT [facility] Inspired O2 95 02/12/2025 2:30 AM EDT [facility] Blood VENOUS BLOOD / Unknown Venipuncture / Unknown 02/12/2025 2:21 AM EDT 02/12/2025 2:27 AM EDT us Jennifer Costello DO CHEMISTRY ORDERABLES Final Res ult [facility] [address] [facility] [place] [address] * (ABNORMAL) PT / INR (02/12/2025 2:21 AM EDT) PT 37.1(H) 10.5 - 13.6 second(s) 02/12/2025 2:36 AM EDT [facility] INR 3.15(H) 0.91 - 1.18 (ratio) 02/12/2025 2:36 AM EDT [facility] Comment: Level of Therapy Indications Target INR Range Standard Dose Treatment and prophylaxis of venous 2.0 - 3.0 thrombosis, pulmonary embolism High Dose High risk patients with mechanical 2.5 - 3.5 heart valves Blood VENOUS BLOOD / Unknown Venipuncture / Unknown 02/12/2025 2:21 AM EDT 02/12/2025 2:27 AM EDT us Jennifer Costello DO HEMATOLOGY ORDERABLES Final Re sult [facility] [address] [facility] [place] [address] * (ABNORMAL) CBC WITH DIFF (02/12/2025 2:21 AM EDT) [facility] WBC 8.4 3.7 - 10.3 x10(3)/mcL 02/12/2025 2:29 AM EDT [facility] RBC 4.30 3.90 - 5.20 x10(6)/mcL 02/12/2025 2:29 AM EDT [facility] Hgb 9.5(L) 11.2 - 15.7 g/dL 02/12/2025 2:29 AM EDT [facility] Hct 31.6(L) 34.0 - 45.0 % 02/12/2025 2:29 AM EDT [facility] MCV 73.5(L) 80.0 - 100.0 fL 02/12/2025 2:29 AM EDT [facility] MCH 22.1(L) 26.0 - 34.0 pg 02/12/2025 2:29 AM EDT [facility] MCHC 30.1(L) 30.7 - 35.5 g/dL 02/12/2025 2:29 AM EDT [facility] RDW 18.8(H) <=14.9 % 02/12/2025 2:29 AM EDT [facility] Platelet 271 155 - 369 x10(3)/mcL 02/12/2025 2:29 AM EDT [facility] MPV 10.5 8.8 - 12.5 fL 02/12/2025 2:29 AM EDT [facility] Neut Percent 79.8 % 02/12/2025 2:29 AM EDT [facility] Comment:Neutrophils equals s egs plus bands Imm Gran% 0.6 % 02/12/2025 2:29 AM EDT [facility] Comment:Automated count of m etamyelocytes, myelocytes and promyelocytes. Lymph Percent 13.6 % 02/12/2025 2:29 AM EDT [facility] [place] Percent 3.1 % 02/12/2025 2:29 AM EDT [facility] Eos Percent 2.5 % 02/12/2025 2:29 AM EDT [facility] Baso Percent 0.4 % 02/12/2025 2:29 AM EDT [facility] Neut # 6.7(H) 1.6 - 6.1 x10(3)/[facility] 02/12/2025 2:29 AM EDT [facility] Comment:Neutrophils equals s egs plus bands IMMGRAN# 0.1 0.0 - 0.1 x10(3)/[facility] 02/12/2025 2:29 AM EDT [facility] Comment:Automated count of m etamyelocytes, myelocytes and promyelocytes. An absolute IG <0.1 is reported as 0.0. Lymph # 1.1(L) 1.2 - 3.9 x10(3)/[facility] 02/12/2025 2:29 AM EDT [facility] [place] # 0.3 0.3 - 0.9 x10(3)/[facility] 02/12/2025 2:29 AM EDT [facility] Eos# 0.2 0.0 - 0.5 x10(3)/[facility] 02/12/2025 2:29 AM EDT [facility] Baso # 0.0 0.0 - 0.1 x10(3)/[facility] 02/12/2025 2:29 AM EDT [facility] Blood VENOUS BLOOD / Unknown Venipuncture / Unknown 02/12/2025 2:21 AM EDT 02/12/2025 2:27 AM EDT Jennifer Costello DO HEMATOLOGY ORDERABLES Final Re sult [facility] [address] [place] [address] * XR CHEST AP PORTABLE (02/12/2025 1:53 AM EDT) Anatomical Region Laterality Modality Chest Radiographic Kiesha ging 02/12/2025 1:53 AM EDT Impressions 02/12/2025 1:54 AM EDT No acute cardiopulmonary process. - Note: Radiology results need to be interpreted within a comprehensive clinical context. If you have questions about the radiology report, please contact the office of the ordering clinician. Narrative 02/12/2025 1:54 AM EDT XR CHEST AP PORTABLE, 02/12/2025 1:53 AM CLINICAL HISTORY: -SOB recent PNA COMPARISON: June 17, 2024 PROCEDURE COMMENTS: AP portable technique. FINDINGS: Limited study due to patient bodily habitus. Stable cardiac and aortic configuration. No acute failure, pneumonia, or effusion. Grossly stable appearance of the lungs. Procedure Note Kwaku Mina MD - 02/12/2025 XR CHEST AP PORTABLE, 02/12/2025 1:53 AM CLINICAL HISTORY: -SOB recent PNA COMPARISON: June 17, 2024 PROCEDURE COMMENTS: AP portable technique. FINDINGS: Limited study due to patient bodily habitus. Stable cardiac and aortic configuration. No acute failure, pneumonia, or effusion. Grossly stable appearance of the lungs. IMPRESSION: No acute cardiopulmonary process. - Note: Radiology results need to be interpreted within a comprehensiveclinical context. If you have questions about the radiology report, please contactthe office of the ordering clinician. 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 : 1980 Requested By: JENNIFER Dutta Order Number: [id number] Reading MD: Mustapha Piper Measurements Intervals [place] Rate: 66 P: 51 ME: 164 QRS: 46 QRSD: 95 T: 35 QT: 414 QTc: 436 Interpretive Statements SINUS RHYTHM NONSPECIFIC T WAVE ABNORMALITY Electronically Signed On 02-12-2025 17:30:13 EDT by Mustapha Piper Narrative Procedure Note Mustapha Piper MD - 02/12/2025 IMPRESSION [facility] Test Date: 2025-02-12 Pat Name: MONA NETTLES Department: DEPID Room: E3708 Gender: Female 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 : 1980 Requested By: JENNIFER Dutta Order Number: [id number] Reading MD: Mustapha Piper Measurements Intervals [place] Rate: 66 P: 51 ME: 164 QRS: 46 QRSD: 95 T: 35 QT: 414 QTc: 436 Interpretive Statements SINUS RHYTHM NONSPECIFIC T WAVE ABNORMALITY Electronically Signed On 02-12-2025 17:30:13 EDT by Mustapha Piper us Jennifer Costello DO IMG ECG ORDERABLES Final Resul t documented in this encounter Visit Diagnoses Diagnosis REYES (dyspnea on exertion)- Primary Other dyspnea and respiratory abnormality REYES (dyspnea on exertion) Other dyspnea and respiratory abnormality Chest pressure Other chest pain Other iron deficiency anemia Type 2 diabetes mellitus, without long-term current use of insulin (HCC) Type 2 diabetes mellitus with diabetic polyneuropathy, without long-term current use of insulin (HCC) Stage 3 acute kidney injury Presence of IVC filter Other postprocedural status AURELIA (obstructive sleep apnea) Obstructive sleep apnea (adult) (pediatric) Mood disorder Unspecified episodic mood disorder Hypothyroidism Unspecified hypothyroidism Hypertension Unspecified essential hypertension Factor V Leiden Primary hypercoagulable state Chronic pain syndrome Anxiety Anxiety state, unspecified Chest pressure Other chest pain Acute congestive heart failure (HCC) Congestive heart failure, unspecified Demand ischemia (HCC) Other acute and subacute form of ischemic heart disease Chest pain Chest pain, unspecified Iron deficiency anemia Iron deficiency anemia, unspecified documented in this encounter Admitting Diagnoses Diagnosis REYES (dyspnea on exertion) Other dyspnea and respiratory abnormality documented in this encounter Administered Medications Inactive Administered Medications - up to 1 most recent administrations Medication Order MAR Action Action Date Dose Rate Site acetaminophen (TYLENOL) tablet 650 mg 650 mg, Oral, EVERY 4 HOURS PRN, Starting on 02/12/25 at 1009, Until Fri02/18/25 at 2315, Fever, Headaches, Maximum adult dose of acetaminophen is 4000 mg from all sources in 24 hours. albuterol (PROVENTIL HFA;VENTOLIN HFA) inhaler 2 Puff 2 Puff, Inhalation, PRN, Starting on 02/14/25 at 1807, Until Fri02/18/25 at 2315, Wheezing, Shortness of Breath, Waste Sort Code = BLACK RCRA Hazardous Waste Container albuterol (PROVENTIL) nebulizer solution 2.5 mg 2.5 mg, Nebulization, PRN, Starting on Fri02/14/25 at 1807, Until Fri02/18/25 at 2315, Wheezing, Shortness of Breath, Bronchospasm aluminum & magnesium hydroxide-simethicone 200-200-20 mg/5 mL suspension 30 mL 30 mL, Oral, ONCE, 1 dose, On Fri02/18/25 at 1545, Viscous lidocaine is currently on national back order. Aluminum & magnesium hydroxide-simethicone (Maalox) monotherapy has been shown to be as effective to treat epigastric pain as combination with lidocaine. Please continue with interchange to aluminum & magnesium hydroxide-simethicone (Maalox) monotherapy. Given 02/18/2025 4:38 PM EDT 30 mL amLODIPine (NORVASC) tablet 10 mg 10 mg, Oral, DAILY, First dose (after last modification) on Fri02/15/25 at 0900, Until Discontinued Given 02/18/2025 8:41 AM EDT 10 mg amLODIPine (NORVASC) tablet 5 mg 5 mg, Oral, DAILY, First dose on Fri02/12/25 at 1515, Until Discontinued Given 02/14/2025 8:33 AM EDT 5 mg amoxicillin-clavulana te (AUGMENTIN) 875-125 mg per tablet 1 Tablet 1 Tablet, Oral, EVERY 12 HOURS SCHEDULED (2 times per day), 10 doses, First dose on Fri02/18/25 at 1230, Last dose on Fri02/22/25 at 2100, Reason for Therapy: Other, Reason: dental caries Given 02/18/2025 1:35 PM EDT 1 Tablet atorvastatin (LIPITOR) tablet 40 mg 40 mg, Oral, NIGHTLY, First dose on Fri02/12/25 at 2100, Until Discontinued Given 02/17/2025 9:01 PM EDT 40 mg benzocaine (ORAJEL) 10 % mucosal gel Mouth/Throat, PRN, 2 doses, Starting on Fri02/18/25 at 0649, Until Fri02/18/25 at 2315, Pain, Tooth pain Given 02/18/2025 1:46 PM EDT benzonatate (TESSALON) capsule 100 mg 100 mg, Oral, ONCE, 1 dose, On Fri02/18/25 at 1700, Swallow capsule whole; do not break, crush, dissolve, or chew. Given 02/18/2025 5:11 PM EDT 100 mg bisacodyL (DULCOLAX) EC tablet 20 mg 20 mg, Oral, ONCE, 1 dose, On Elisa 02/17/25 at 1300 Given 02/17/2025 1:35 PM EDT 20 mg dextromethorphan-guai FENesin (ROBITUSSIN DM) 10-100 mg/5 mL syrup 10 mL 10 mL, Oral, EVERY 4 HOURS PRN, Starting on Fri02/12/25 at 0433, Until Fri02/18/25 at 2315, Cough dextrose 50 % solution 25 mL 25 mL, Intravenous, PRN, Starting on 02/12/25 at 0434, Until Fri02/18/25 at 2315, Low blood sugar, If FSBS less than 70 mg/dl and patient cannot take orally, Check FSBS every 15 minutes and repeat 25 mL of D50 IV push and notify physician if FSBS less than 70 mg/dL VESICANT , Insulin Calculator docusate sodium (COLACE) capsule 100 mg 100 mg, Oral, 2 TIMES DAILY PRN, Starting on 02/12/25 at 0432, Until Fri02/18/25 at 2315, Constipation, Do not crush or chew. famotidine (PEPCID) tablet 40 mg 40 mg, Oral, NIGHTLY, First dose on Fri02/12/25 at 2100, Until Discontinued Given 02/17/2025 9:03 PM EDT 40 mg fentaNYL (SUBLIMAZE) injection 25 mcg 25 mcg, Intravenous, EVERY 5 MIN PRN, Starting on Fri02/18/25 at 1132, Until Fri02/18/25 at 1931, Pain, For initial pain. Maximum dose not to exceed 100 mcg., PACU ferric gluconate (FERRLECIT) 125 mg in sodium chloride 0.9 % 110 mL ivpb 125 mg, Intravenous, DAILY, 3 doses, First dose on 02/14/25 at 1500, Last dose on Fri02/16/25 at 0900, Administer over 60 Minutes IV Started 02/16/2025 11:40 AM EDT 125 mg 110 mL/hr FLUoxetine (PROzac) capsule 60 mg 60 mg, Oral, NIGHTLY, First dose on Fri02/12/25 at 2100, Until Discontinued Given 02/17/2025 9:03 PM EDT 60 mg folic acid (FOLVITE) tablet 1 mg 1 mg, Oral, DAILY, First dose on Fri02/12/25 at 0900, Until Discontinued Given 02/18/2025 8:41 AM EDT 1 mg fUROsemide (LASix) injection 40 mg 40 mg, Intravenous, TWICE DAILY DIURETIC, First dose on Fri02/12/25 at 1145, Until Discontinued, Give IV push at 20 to 40 mg/min. MAX ADMIN RATE = 40 mg/min Given 02/13/2025 9:31 AM EDT 40 mg glucagon (GLUCAGEN) injection 1 mg 1 mg, Intramuscular, PRN, Starting on Fri02/12/25 at 0434, Until Fri02/18/25 at 2315, Low blood sugar, If FSBS less than 70 mg/dl, patient cannot take orally and without IV access, If patient is without IV access, give Glucagon 1 mg Intramuscularly, insert IV and call physician., Insulin Calculator heparin (porcine) injection 5,000 Units 5,000 Units, Intravenous, ONCE, 1 dose, On Elisa 02/17/25 at 1730 Given 02/17/2025 5:43 PM EDT 5,000 Units heparin 25,000 units in 250 mL 0.45% NaCl 1,800 Units/hr (18 mL/hr), Intravenous, CONTINUOUS, Starting on Fri02/17/25 at 1730, Until Fri02/18/25 at 0300 Rate/Dose Change 02/18/2025 1:42 AM EDT 1,800 Units/hr 18 mL/hr HYDROmorphone (DILAUDID) injection 0.25 mg 0.25 mg, Intravenous, EVERY 10 MIN PRN, Starting on Fri02/18/25 at 1132, Until Fri02/18/25 at 1931, Breakthrough Pain, Do not exceed 2 mg in one hour unless otherwise ordered by the Anesthesia Coordinator For pain unrelieved by fentanyl or oral opioid, PACU insulin aspart U-100 (NovoLOG) injection 0-40 Units 0-40 Units, Subcutaneous, 4 TIMES DAILY AT MEALTIME AND BEDTIME, First dose on Fri02/12/25 at 0800, Until Discontinued, PO Diet: Obtain FSBS before patient begins eating. Administer this dose, which only provides correctional insulin, immediately after FSBS. If patient is NPO or declines meal tray, continue with calculated correction insulin dose. Tube Feeds and TPN: Obtain FSBS and administer this dose, which only provides correctional insulin, immediately after FSBS. Notify physician if FSBS less than 50 or greater than 350. Correction insulin doses must be by at least 3 hours. Insulin Calculator MUSHROOM GROWING SUPERVISOR - DBN, MANNY, FTT, ICUs, and CVSICU Only Waste Sort Code = BLACK RCRA Hazardous Waste Container, Blood Glucose Target - Daytime (mg/dL): 140, Blood Glucose Target - Nighttime (mg/dL): 180, Hyperglycemia Correction Factor: 50, Insulin Calculator Given 02/18/2025 5:21 PM EDT 2 Units Left Arm 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) - FSBS (Correction Only) Input MISCELLANEOUS, 4 TIMES DAILY AT MEALTIME AND BEDTIME, First dose on 02/12/25 at 0800, Until Discontinued, Blood Glucose Target - Daytime (mg/dL): 140, Blood Glucose Target - Nighttime (mg/dL): 180, Hyperglycemia Correction Factor: 50, Insulin Calculator lactated ringers infusion Intravenous, at 75 mL/hr, PREPROCEDURE CONTINUOUS, Starting on Fri02/18/25 at 0932, Until Fri02/18/25 at 2315, To be given in SDS/Pre-op Holding Area, Pre-op (Holding/SDS Meds) New Bag 02/18/2025 10:01 AM EDT 75 mL/hr LEVOthyroxine (SYNTHROID) tablet 75 mcg 75 mcg, Oral, DAILY EARLY AM, First dose on 02/12/25 at 0600, Until Discontinued, Take on empty stomach, at least 30 minutes to 1 hour before breakfast. Take at least 4 hours prior before or after calcium- or iron-containing products or bile acid sequestrants. If given via NG or other tubes administer dose as long as possible after feeding and at least 1 hour before resuming feeding. Given 02/17/2025 5:45 AM EDT 75 mcg lidocaine (XYLOCAINE) 2 % viscous solution 15 mL 15 mL, Mouth/Throat, ONCE, 1 dose, On Elisa 02/17/25 at 1200, 1-2 minutes prior to NG placement, instill 5 mL in each nostril and 5 mL (swallowed) in the back of the patient's throat. Given 02/17/2025 10:47 AM EDT 15 mL miconazole (MICATIN) 2 % powder Topical, 2 TIMES DAILY, 84 doses, First dose on Fri02/12/25 at 1215, Last dose on Fri03/25/25 at 2100, Application site: abdominal folds Given 02/18/2025 9:00 AM EDT Left Lower Quadrant- Abdomen mirabegron (MYRBETRIQ) ER tablet 50 mg 50 mg, Oral, DAILY, First dose on Fri02/12/25 at 1100, Until Discontinued Given 02/18/2025 8:41 AM EDT 50 mg ondansetron (ZOFRAN) injection 4 mg 4 mg, Intravenous, EVERY 4 HOURS PRN, Starting on Fri02/12/25 at 0432, Until Fri02/18/25 at 2315, Nausea Given 02/15/2025 5:20 PM EDT 4 mg ondansetron (ZOFRAN) injection 4 mg 4 mg, Intravenous, ONCE PRN, 1 dose, Starting on Fri02/18/25 at 1132, Until Fri02/18/25 at 2315, Nausea, Do not give if patient received granisetron (Kytril) or ondansetron (Zofran) within 4 hours., PACU ondansetron (ZOFRAN) tablet 4 mg 4 mg, Oral, EVERY 4 HOURS PRN, Starting on Fri02/12/25 at 0432, Until Fri02/18/25 at 2315, Nausea ondansetron (ZOFRAN-ODT) disintegrating tablet 8 mg 8 mg, Oral, ONCE PRN, 1 dose, Starting on Fri02/18/25 at 1132, Until Fri02/18/25 at 2315, Nausea, Do not give if patient received granisetron (Kytril) or ondansetron (Zofran) within 4 hours., PACU oxyCODONE (OxyCONTIN) CR tablet 30 mg 30 mg, Oral, *EVERY 12 HOURS, First dose on Fri02/12/25 at 1100, Until Discontinued Given 02/18/2025 1:35 PM EDT 30 mg oxyCODONE (ROXICODONE) immediate release tablet 5 mg 5 mg, Oral, EVERY 1 HOUR PRN, Starting on Fri02/18/25 at 1132, Until Fri02/18/25 at 1931, Pain, When tolerating oral intake. Maximum dose not to exceed 10 mg unless otherwise directed by the Anesthesia Coordinator., PACU perflutren lipid microspheres (DEFINITY) 1.3 mL in sodium chloride 0.9% 10 mL injection 10 mL, Injection, ONCE PRN, 1 dose, Starting on 02/12/25 at 1213, Until 02/12/25 at 1216, Bring vial to room temperature. Shake for 45 seconds using Vialmix apparatus. FIRST withdraw 8.7 mL of 0.9% NaCl into a 10-mL syringe. SECOND, vent the activated vial using an 18- or 20-gauge needle tip. THIRD, attach second 18- or 20-gauge needle to 10-ml syringe and insert in vial. Invert vial, and slowly withdraw 1.3 ml activated product. Do NOT inject air into vial. Gently hand agitate then administer ordered dose. VESICANT , Echo Meds Given 02/12/2025 12:16 PM EDT 3 mL Right Arm phenoL (CHLORASEPTIC) 1.4 % oral spray 1 [place] 1 [place], Oral, PRN, Starting on Fri02/17/25 at 1015, Until Fri02/18/25 at 2315, Other, Irritation/discomfort post NG tube placement Given 02/17/2025 1:36 PM EDT 1 [place] polyethylene glycol (GLYCOLAX, MIRALAX) packet 17 g 17 g, Oral, DAILY, First dose on Fri02/16/25 at 1000, Until Discontinued Given 02/17/2025 8:28 AM EDT 17 g polyethylene glycol (GoLYTELY) suspension 2,000 mL 2,000 mL, Oral, ONCE, 1 dose, On Fri02/17/25 at 1100, FIRST HALF of prep, the patient is to begin drinking the FIRST HALF of Colyte/Golytely solution. Give 8 ounces every 15 minutes for two (2) hours (one-half of the prep). TIMING IS IMPORTANT. Please, if a tube is used, DO NOT USE IV PUMP BUT GIVE VIA SYRINGE. Call physician if it takes longer than 2 hours to drink Colyte/Golytely or if there are any difficulties. , Pre-op (Floor Meds) Started 02/17/2025 9:30 AM EDT 2,000 mL polyethylene glycol (GoLYTELY) suspension 2,000 mL 2,000 mL, Oral, ONCE, 1 dose, On Elisa 02/17/25 at 1700, SECOND HALF of prep: At 5pm the afternoon prior to procedure (or 4 hours after the first half of the prep is given), the patient is to begin drinking the SECOND HALF of Colyte/Golytely solution. Give 8 ounces every 15 minutes for two (2) hours (one-half of the prep). TIMING IS IMPORTANT. Please, if a tube is used, DO NOT USE IV PUMP BUT GIVE VIA SYRINGE. Call physician if it takes longer than 2 hours to drink Colyte/Golytely or if there are any difficulties. , Pre-op (Floor Meds) Started 02/17/2025 5:43 PM EDT 2,000 mL potassium chloride (KLOR-CON) tablet 40 mEq 40 mEq, Oral, ONCE, 1 dose, On [place] 02/13/25 at 1045 Given 02/13/2025 9:46 AM EDT 40 mEq promethazine (PHENERGAN) 12.5 mg in sodium chloride 0.9% 10 mL injection 12.5 mg, Intravenous, PRN, Starting on Fri02/18/25 at 1132, Until Fri02/18/25 at 1931, Nausea, For nausea unrelieved by droperidol or pre-op antiemetic. Begin with lowest dose unless otherwise directed. Give remainder of dose if nausea unrelieved in 20 minutes. Not to exceed 25 mg in one hour unless otherwise ordered by Anesthesia Coordinator. VESICANT , PACU promethazine (PHENERGAN) 6.25 mg in sodium chloride 0.9% 10 mL injection 6.25 mg, Intravenous, PRN, Starting on Fri02/18/25 at 1132, Until Fri02/18/25 at 1931, Nausea, For nausea unrelieved by droperidol or pre-op antiemetic. Begin with lowest dose unless otherwise directed. Give remainder of dose if nausea unrelieved in 20 minutes. Not to exceed 25 mg in one hour unless otherwise ordered by Anesthesia Coordinator. VESICANT , PACU propranoloL (INDERAL) tablet 20 mg 20 mg, Oral, *EVERY 12 HOURS, First dose on Fri02/12/25 at 1100, Until Discontinued Given 02/18/2025 1:45 PM EDT 20 mg QUEtiapine (SEROquel) tablet 100 mg 100 mg, Oral, 2 TIMES DAILY, First dose on Fri02/12/25 at 0900, Until Discontinued Given 02/18/2025 8:41 AM EDT 100 mg rOPINIRole (REQUIP) tablet 2 mg 2 mg, Oral, 3 TIMES DAILY, First dose on Fri02/12/25 at 0900, Until Discontinued Given 02/18/2025 1:35 PM EDT 2 mg sterile water injection 1 mL 1 mL, Injection, PRN, Starting on Fri02/12/25 at 0434, Until Fri02/18/25 at 2315, Use for drug dilution, Use to dilute and administer glucagon injection, Insulin Calculator tiZANidine (ZANAFLEX) tablet 8 mg 8 mg, Oral, NIGHTLY, First dose on Fri02/12/25 at 2100, Until Discontinued Given 02/17/2025 9:01 PM EDT 8 mg traMADoL (ULTRAM) tablet 50-100 mg 50-100 mg, Oral, 3 TIMES DAILY PRN, Starting on Fri02/12/25 at 1009, Until Fri02/18/25 at 2315, Pain, Start with lowest dose and may give additional if needed. Given 02/16/2025 8:50 PM EDT 100 mg warfarin (COUMADIN) tablet 5 mg 5 mg, Oral, ONCE WARFARIN, 1 dose, On Fri02/14/25 at 1700, Please place residual drug and/or empty package in BLACK RA Hazardous Waste Container Given 02/14/2025 5:03 PM EDT 5 mg warfarin (COUMADIN) tablet 7.5 mg 7.5 mg, Oral, ONCE WARFARIN, 1 dose, On 02/12/25 at 1700, Please place residual drug and/or empty package in BLACK RA Hazardous Waste Container Given 02/12/2025 5:33 PM EDT 7.5 mg warfarin (COUMADIN) tablet 7.5 mg 7.5 mg, Oral, ONCE WARFARIN, 1 dose, On Fri02/13/25 at 1700, Please place residual drug and/or empty package in BLACK RA Hazardous Waste Container Given 02/13/2025 5:29 PM EDT 7.5 mg WARFARIN - PHARMACY-MANAGED THERAPY MISCELLANEOUS, DAILY WARFARIN (Daily), First dose on Fri02/12/25 at 1700, Until Discontinued Given 02/12/2025 5:34 PM EDT documented in this encounter Discontinued Medications Medication Sig Discontinue Reason Start Date End Da te torsemide (DEMADEX) 20 mg Oral Tablet Take 20 mg by mouth daily. 12/23/2024 02/18/2025 oxyCODONE (OXYCONTIN) 15 mg Oral tablet,oral only,ext.rel.12 hr Take 30 mg by mouth every 12 hours. Stop Taking at Discharge 02/18/2025 amLODIPine (NORVASC) 5 mg Oral Tablet Take 5 mg by mouth daily. Stop Taking at Discharge 02/18/2025 documented as of this encounter Historical Medications * This list may reflect changes made after this encounter. oxyCODONE 30 mg Oral tablet,oral only,ext.rel.12 hr Take 30 mg by mouth every 12 hours. amLODIPine (NORVASC) 5 mg Oral Tablet Take 5 mg by mouth daily. 02/18/2025 added in this encounter Active and Recently Administered Medications Times are shown in EDT. Scheduled Medication Order 02/16/2025 02/17/2025 02/18/2025 aluminum & magnesium hydroxide-simethicone 200-200-20 mg/5 mL suspension 30 mL (COMPLETED) 30 mL, Oral, ONCE, 1 dose, On Fri02/18/25 at 1545, Viscous lidocaine is currently on national back order. Aluminum & magnesium hydroxide-simethicone (Maalox) monotherapy has been shown to be as effective to treat epigastric pain as combination with lidocaine. Please continue with interchange to aluminum & magnesium hydroxide-simethicone (Maalox) monotherapy. 1638 (Given - Provider: Bulmaro Norwood RN) amLODIPine (NORVASC) tablet 10 mg 10 mg, Oral, DAILY, First dose (after last modification) on Fri02/15/25 at 0900, Until Discontinued 08 (Given - Provider: Radha Bell RN) 08 (Given - Provider: BRIDGET Smith III) 0841 (Given - Provider: Bulmaro Norwood RN) amoxicillin-clavulanat e (AUGMENTIN) 875-125 mg per tablet 1 Tablet 1 Tablet, Oral, EVERY 12 HOURS SCHEDULED (2 times per day), 10 doses, First dose on Fri02/18/25 at 1230, Last dose on Fri02/22/25 at 2100, Reason for Therapy: Other, Reason: dental caries 1335 (Given - Provider: Bulmaro Norwood, YENNY) atorvastatin (LIPITOR) tablet 40 mg 40 mg, Oral, NIGHTLY, First dose on Fri02/12/25 at 2100, Until Discontinued 2048 (Given - Provider: Mitesh Stevens RN) 2100 (Given - Provider: Triston Lezama, YENNY) benzonatate (TESSALON) capsule 100 mg (COMPLETED) 100 mg, Oral, ONCE, 1 dose, On Fri02/18/25 at 1700, Swallow capsule whole; do not break, crush, dissolve, or chew. 171 (Given - Provider: Bulmaro Norwood, YENNY) bisacodyL (DULCOLAX) EC tablet 20 mg (COMPLETED) 20 mg, Oral, ONCE, 1 dose, On Fri02/17/25 at 1300 1335 (Given - Provider: Callie Sauer, SNAP III) famotidine (PEPCID) tablet 40 mg 40 mg, Oral, NIGHTLY, First dose on Fri02/12/25 at 2100, Until Discontinued 2048 (Given - Provider: Mitesh Stevens RN) 2102 (Given - Provider: Triston Lezama RN) ferric gluconate (FERRLECIT) 125 mg in sodium chloride 0.9 % 110 mL ivpb (COMPLETED) 125 mg, Intravenous, DAILY, 3 doses, First dose on Fri02/14/25 at 1500, Last dose on Fri02/16/25 at 0900, Administer over 60 Minutes 1140 (IV Started - Provider: Radha Bell RN)1240 (Stopped - Provider: Radha Bell RN) FLUoxetine (PROzac) capsule 60 mg 60 mg, Oral, NIGHTLY, First dose on Fri02/12/25 at 2100, Until Discontinued 2048 (Given - Provider: Mitesh Stevens RN) 2102 (Given - Provider: Triston Lezama, YENNY) folic acid (FOLVITE) tablet 1 mg 1 mg, Oral, DAILY, First dose on Fri02/12/25 at 0900, Until Discontinued 08 (Given - Provider: Radha Bell, YENNY) 0827 (Given - Provider: BRIDGET Smith III) 0841 (Given - Provider: Bulmaro Norwood, YENNY) heparin (porcine) injection 5,000 Units (COMPLETED) 5,000 Units, Intravenous, ONCE, 1 dose, On Elisa 02/17/25 at 1730 1743 (Given - Provider: Radha Bell, YENNY) insulin aspart U-100 (NovoLOG) injection 0-40 Units(Linked Group 1) 0-40 Units, Subcutaneous, 4 TIMES DAILY AT MEALTIME AND BEDTIME, First dose on 02/12/25 at 0800, Until Discontinued, PO Diet: Obtain FSBS before patient begins eating. Administer this dose, which only provides correctional insulin, immediately after FSBS. If patient is NPO or declines meal tray, continue with calculated correction insulin dose. Tube Feeds and TPN: Obtain FSBS and administer this dose, which only provides correctional insulin, immediately after FSBS. Notify physician if FSBS less than 50 or greater than 350. Correction insulin doses must be by at least 3 hours. Insulin Calculator MUSHROOM GROWING SUPERVISOR - DBN, MANNY, FTT, ICUs, and CVSICU Only Waste Sort Code = BLACK RCRA Hazardous Waste Container, Blood Glucose Target - Daytime (mg/dL): 140, Blood Glucose Target - Nighttime (mg/dL): 180, Hyperglycemia Correction Factor: 50, Insulin Calculator 0800 (Given - Provider: Radha Bell RN)1200 (Given - Provider: Radha Bell, YENNY)1800 (Given - Provider: Radha Bell RN)2056 (Given - Provider: Mitesh Stevens RN) 0828 (Given - Provider: BRIDGET Smith III - Comment: NAVYA RN)1207 (Given - Provider: BRIDGET Smith III - Comment: CLEOPATRA RN)1800 (Not Given - Provider: BRIDGET Smith III - Reason: Order parameters not met)2100 (Not Given - Provider: Triston Lezama RN - Reason: Order parameters not met) 0800 (Given - Provider: Bulmaro Norwood, YENNY)1330 (Given - Provider: Bulmaro Norwood, RN)1721 (Given - Provider: Bulmaro Norwood, YENNY) 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) - FSBS (Correction Only) Input(Linked Group 1) MISCELLANEOUS, 4 TIMES DAILY AT MEALTIME AND BEDTIME, First dose on 02/12/25 at 0800, Until Discontinued, Blood Glucose Target - Daytime (mg/dL): 140, Blood Glucose Target - Nighttime (mg/dL): 180, Hyperglycemia Correction Factor: 50, Insulin Calculator 0830 (Non- Med Documentation - Provider: Radha Bell, RN)1200 (Non- Med Documentation - Provider: Radha Bell RN)1800 (Non- Med Documentation - Provider: Radha Bell RN)2053 (Non- Med Documentation - Provider: Mitesh Stevens RN) 0800 (Non- Med Documentation - Provider: BRIDGET Smith III)1200 (Non- Med Documentation - Provider: BRIDGET Smith III)1800 (Non- Med Documentation - Provider: BRIDGET Smith III)2100 (Non- Med Documentation - Provider: Triston Lezama RN) 0800 (Non- Med Documentation - Provider: Bulmaro Norwood RN)1200 (Non- Med Documentation - Provider: Bulmaro Norwood RN)1800 (Non- Med Documentation - Provider: Bulmaro Norwood RN) LEVOthyroxine (SYNTHROID) tablet 75 mcg 75 mcg, Oral, DAILY EARLY AM, First dose on 02/12/25 at 0600, Until Discontinued, Take on empty stomach, at least 30 minutes to 1 hour before breakfast. Take at least 4 hours prior before or after calcium- or iron-containing products or bile acid sequestrants. If given via NG or other tubes administer dose as long as possible after feeding and at least 1 hour before resuming feeding. 0516 (Given - Provider: Mitesh Stevens RN) 0545 (Given - Provider: Mitesh Stevens, YENNY) 0600 (Hold - Provider: Triston Lezama RN - Reason: NPO) lidocaine (XYLOCAINE) 2 % viscous solution 15 mL (COMPLETED) 15 mL, Mouth/Throat, ONCE, 1 dose, On Elisa 02/17/25 at 1200, 1-2 minutes prior to NG placement, instill 5 mL in each nostril and 5 mL (swallowed) in the back of the patient's throat. 1047 (Given - Provider: BRIDGET Smith III) miconazole (MICATIN) 2 % powder Topical, 2 TIMES DAILY, 84 doses, First dose on Fri02/12/25 at 1215, Last dose on Fri03/25/25 at 2100, Application site: abdominal folds 0900 (Given - Provider: Radha Bell RN)2055 (Given - Provider: Mitesh Stevens RN) 0833 (Given - Provider: BRIDGET Smith III)2100 (Given - Provider: Triston Lezama RN) 0900 (Given - Provider: Bulmaro Norwood RN - Comment: skin folds) mirabegron (MYRBETRIQ) ER tablet 50 mg 50 mg, Oral, DAILY, First dose on Fri02/12/25 at 1100, Until Discontinued 08 (Given - Provider: Radha Bell RN) 0827 (Given - Provider: BRIDGET Smith III) 0841 (Given - Provider: Bulmaro Norwood RN) oxyCODONE (OxyCONTIN) CR tablet 30 mg 30 mg, Oral, *EVERY 12 HOURS, First dose on Fri02/12/25 at 1100, Until Discontinued 0020 (Given - Provider: Mitesh Stevens RN)1134 (Given - Provider: Radha Bell RN) 0101 (Given - Provider: Mitesh Stevens RN)1038 (Given - Provider: BRIDGET Smith III)2318 (Given - Provider: Triston Lezama RN) 1335 (Given - Provider: Bulmaro Norwood RN) polyethylene glycol (GLYCOLAX, MIRALAX) packet 17 g 17 g, Oral, DAILY, First dose on Fri02/16/25 at 1000, Until Discontinued 1134 (Given - Provider: Radha Bell RN) 0828 (Given - Provider: BRIDGET Smith III) 0900 (Not Given - Provider: Bulmaro Norwood RN - Reason: Contraindicated) polyethylene glycol (GoLYTELY) suspension 2,000 mL (COMPLETED) 2,000 mL, Oral, ONCE, 1 dose, On Elisa 02/17/25 at 1100, FIRST HALF of prep, the patient is to begin drinking the FIRST HALF of Colyte/Golytely solution. Give 8 ounces every 15 minutes for two (2) hours (one-half of the prep). TIMING IS IMPORTANT. Please, if a tube is used, DO NOT USE IV PUMP BUT GIVE VIA SYRINGE. Call physician if it takes longer than 2 hours to drink Colyte/Golytely or if there are any difficulties. , Pre-op (Floor Meds) 0930 (Started - Provider: BRIDGET Smith III - Comment: samuel Atkins APRNstart time)1130 (Stopped - Provider: Radha Bell RN) polyethylene glycol (GoLYTELY) suspension 2,000 mL (COMPLETED) 2,000 mL, Oral, ONCE, 1 dose, On Elisa 02/17/25 at 1700, SECOND HALF of prep: At 5pm the afternoon prior to procedure (or 4 hours after the first half of the prep is given), the patient is to begin drinking the SECOND HALF of Colyte/Golytely solution. Give 8 ounces every 15 minutes for two (2) hours (one-half of the prep). TIMING IS IMPORTANT. Please, if a tube is used, DO NOT USE IV PUMP BUT GIVE VIA SYRINGE. Call physician if it takes longer than 2 hours to drink Colyte/Golytely or if there are any difficulties. , Pre-op (Floor Meds) 1743 (Started - Provider: Radha Bell RN)1943 (Stopped - Provider: Triston Lezama RN) propranoloL (INDERAL) tablet 20 mg 20 mg, Oral, *EVERY 12 HOURS, First dose on 02/12/25 at 1100, Until Discontinued 0020 (Given - Provider: Mitesh Stevens RN)1134 (Given - Provider: Radha Bell RN)1756 (Not Given - Provider: Radha Bell RN - Reason: Patient Declined) 0101 (Given - Provider: Mitesh Stevens RN)1038 (Given - Provider: BRIDGET Smith III)2300 (Hold - Provider: Triston Lezama RN - Reason: Other - Comment: please see BP) 1345 (Given - Provider: Bulmaro Norwood RN) QUEtiapine (SEROquel) tablet 100 mg 100 mg, Oral, 2 TIMES DAILY, First dose on 02/12/25 at 0900, Until Discontinued 08 (Given - Provider: Radha Bell RN)2048 (Given - Provider: Mitesh Stevens RN) 08 (Given - Provider: BRIDGET Smith III)2100 (Given - Provider: Triston Lezama RN) 08 (Given - Provider: Bulmaro Norwood RN) rOPINIRole (REQUIP) tablet 2 mg 2 mg, Oral, 3 TIMES DAILY, First dose on 02/12/25 at 0900, Until Discontinued 828 (Given - Provider: Radha Bell RN)1400 (Given - Provider: Radha Bell RN)2048 (Given - Provider: Mitesh Stevens RN) 08 (Given - Provider: BRIDGET Smith III)133 (Given - Provider: BRIDGET Smith III)2102 (Given - Provider: Triston Lezama RN) 08 (Given - Provider: Bulmaro Norwood RN)133 (Given - Provider: Bulmaro Norwood RN) tiZANidine (ZANAFLEX) tablet 8 mg 8 mg, Oral, NIGHTLY, First dose on 02/12/25 at 2100, Until Discontinued 2048 (Given - Provider: Mitesh Stevens RN) 2100 (Given - Provider: Tirston Lezama RN) Continuous Medication Order 02/16/2025 02/17/2025 02/18/2025 heparin 25,000 units in 250 mL 0.45% NaCl (CANCELED) 1,800 Units/hr (18 mL/hr), Intravenous, CONTINUOUS, Starting on Elisa 02/17/25 at 1730, Until Fri02/18/25 at 0300 1746 (New Bag - Provider: Radha Bell RN) 0134 (Rate/Dose Change - Provider: Triston Lezama RN)0141 (Rate/Dose Change - Provider: Triston Lezama RN)0141 (Rate/Dose Change - Provider: Triston Lezama RN)0142 (Rate/Dose Verify - Provider: Triston Lezama RN)0142 (Rate/Dose Change - Provider: Triston Lezama RN)0259 (Stopped - Provider: Triston Lezama RN)0300 (Stopped - Provider: Triston Lezama RN - Comment: [Order ends at this time. Document the following action when infusion is complete: Stopped]) PRN Medication Order 02/16/2025 02/17/2025 02/18/2025 acetaminophen (TYLENOL) tablet 650 mg 650 mg, Oral, EVERY 4 HOURS PRN, Starting on 02/12/25 at 1009, Until Fri02/18/25 at 2315, Fever, Headaches, Maximum adult dose of acetaminophen is 4000 mg from all sources in 24 hours. albuterol (PROVENTIL HFA;VENTOLIN HFA) inhaler 2 Puff(Linked Group 2) 2 Puff, Inhalation, PRN, Starting on 02/14/25 at 1807, Until Fri02/18/25 at 2315, Wheezing, Shortness of Breath, Waste Sort Code = BLACK RCRA Hazardous Waste Container albuterol (PROVENTIL) nebulizer solution 2.5 mg(Linked Group 2) 2.5 mg, Nebulization, PRN, Starting on 02/14/25 at 1807, Until Fri02/18/25 at 2315, Wheezing, Shortness of Breath, Bronchospasm benzocaine (ORAJEL) 10 % mucosal gel Mouth/Throat, PRN, 2 doses, Starting on Fri02/18/25 at 0649, Until Fri02/18/25 at 2315, Pain, Tooth pain 1346 (Given - Provider: Bulmaro Norwood RN) dextromethorphan-guaiFENe sin (ROBITUSSIN DM) 10-100 mg/5 mL syrup 10 mL 10 mL, Oral, EVERY 4 HOURS PRN, Starting on 02/12/25 at 0433, Until Fri02/18/25 at 2315, Cough dextrose 50 % solution 25 mL 25 mL, Intravenous, PRN, Starting on 02/12/25 at 0434, Until Fri02/18/25 at 2315, Low blood sugar, If FSBS less than 70 mg/dl and patient cannot take orally, Check FSBS every 15 minutes and repeat 25 mL of D50 IV push and notify physician if FSBS less than 70 mg/dL VESICANT , Insulin Calculator docusate sodium (COLACE) capsule 100 mg 100 mg, Oral, 2 TIMES DAILY PRN, Starting on 02/12/25 at 0432, Until Fri02/18/25 at 2315, Constipation, Do not crush or chew. fentaNYL (SUBLIMAZE) injection 25 mcg 25 mcg, Intravenous, EVERY 5 MIN PRN, Starting on Fri02/18/25 at 1132, Until Fri02/18/25 at 1931, Pain, For initial pain. Maximum dose not to exceed 100 mcg., PACU glucagon (GLUCAGEN) injection 1 mg(Linked Group 3) 1 mg, Intramuscular, PRN, Starting on 02/12/25 at 0434, Until Fri02/18/25 at 2315, Low blood sugar, If FSBS less than 70 mg/dl, patient cannot take orally and without IV access, If patient is without IV access, give Glucagon 1 mg Intramuscularly, insert IV and call physician., Insulin Calculator HYDROmorphone (DILAUDID) injection 0.25 mg 0.25 mg, Intravenous, EVERY 10 MIN PRN, Starting on Fri02/18/25 at 1132, Until Fri02/18/25 at 1931, Breakthrough Pain, Do not exceed 2 mg in one hour unless otherwise ordered by the Anesthesia Coordinator For pain unrelieved by fentanyl or oral opioid, PACU lactated ringers infusion Intravenous, at 75 mL/hr, PREPROCEDURE CONTINUOUS, Starting on Fri02/18/25 at 0932, Until Fri02/18/25 at 2315, To be given in SDS/Pre-op Holding Area, Pre-op (Holding/SDS Meds) 1001 (New Bag - Provider: Virginia Vela, YENNY)1128 (Stopped - Provider: Kerry Arellano RN - Comment: 600 ml infused) ondansetron (ZOFRAN) injection 4 mg(Linked Group 4) 4 mg, Intravenous, EVERY 4 HOURS PRN, Starting on 02/12/25 at 0432, Until Fri02/18/25 at 2315, Nausea ondansetron (ZOFRAN) injection 4 mg(Linked Group 5) 4 mg, Intravenous, ONCE PRN, 1 dose, Starting on Fri02/18/25 at 1132, Until Fri02/18/25 at 2315, Nausea, Do not give if patient received granisetron (Kytril) or ondansetron (Zofran) within 4 hours., PACU ondansetron (ZOFRAN) tablet 4 mg(Linked Group 4) 4 mg, Oral, EVERY 4 HOURS PRN, Starting on 02/12/25 at 0432, Until Fri02/18/25 at 2315, Nausea ondansetron (ZOFRAN-ODT) disintegrating tablet 8 mg(Linked Group 5) 8 mg, Oral, ONCE PRN, 1 dose, Starting on Fri02/18/25 at 1132, Until Fri02/18/25 at 2315, Nausea, Do not give if patient received granisetron (Kytril) or ondansetron (Zofran) within 4 hours., PACU oxyCODONE (ROXICODONE) immediate release tablet 5 mg 5 mg, Oral, EVERY 1 HOUR PRN, Starting on Fri02/18/25 at 1132, Until Fri02/18/25 at 1931, Pain, When tolerating oral intake. Maximum dose not to exceed 10 mg unless otherwise directed by the Anesthesia Coordinator., PACU phenoL (CHLORASEPTIC) 1.4 % oral spray 1 [place] 1 [place], Oral, PRN, Starting on Elisa 02/17/25 at 1015, Until Fri02/18/25 at 2315, Other, Irritation/discomfort post NG tube placement 1336 (Given - Provider: BRIDGET Smith III) promethazine (PHENERGAN) 12.5 mg in sodium chloride 0.9% 10 mL injection(Linked Group 6) 12.5 mg, Intravenous, PRN, Starting on Fri02/18/25 at 1132, Until Fri02/18/25 at 1931, Nausea, For nausea unrelieved by droperidol or pre-op antiemetic. Begin with lowest dose unless otherwise directed. Give remainder of dose if nausea unrelieved in 20 minutes. Not to exceed 25 mg in one hour unless otherwise ordered by Anesthesia Coordinator. VESICANT , PACU promethazine (PHENERGAN) 6.25 mg in sodium chloride 0.9% 10 mL injection(Linked Group 6) 6.25 mg, Intravenous, PRN, Starting on Fri02/18/25 at 1132, Until Fri02/18/25 at 1931, Nausea, For nausea unrelieved by droperidol or pre-op antiemetic. Begin with lowest dose unless otherwise directed. Give remainder of dose if nausea unrelieved in 20 minutes. Not to exceed 25 mg in one hour unless otherwise ordered by Anesthesia Coordinator. VESICANT , PACU sterile water injection 1 mL(Linked Group 3) 1 mL, Injection, PRN, Starting on 02/12/25 at 0434, Until Fri02/18/25 at 2315, Use for drug dilution, Use to dilute and administer glucagon injection, Insulin Calculator traMADoL (ULTRAM) tablet 50-100 mg 50-100 mg, Oral, 3 TIMES DAILY PRN, Starting on Fri02/12/25 at 1009, Until Fri02/18/25 at 2315, Pain, Start with lowest dose and may give additional if needed. 2049 (Given - Provider: Mitesh Stevens RN) Linked Groups Order Group 1: 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) - FSBS (Correction Only) InputJump to med MISCELLANEOUS, 4 TIMES DAILY AT MEALTIME AND BEDTIME, First dose on 02/12/25 at 0800, Until Discontinued, Blood Glucose Target - Daytime (mg/dL): 140, Blood Glucose Target - Nighttime (mg/dL): 180, Hyperglycemia Correction Factor: 50, Insulin Calculator And insulin aspart U-100 (NovoLOG) injection 0-40 UnitsJump to med 0-40 Units, Subcutaneous, 4 TIMES DAILY AT MEALTIME AND BEDTIME, First dose on Fri02/12/25 at 0800, Until Discontinued, PO Diet: Obtain FSBS before patient begins eating. Administer this dose, which only provides correctional insulin, immediately after FSBS. If patient is NPO or declines meal tray, continue with calculated correction insulin dose. Tube Feeds and TPN: Obtain FSBS and administer this dose, which only provides correctional insulin, immediately after FSBS. Notify physician if FSBS less than 50 or greater than 350. Correction insulin doses must be by at least 3 hours. Insulin Calculator MUSHROOM GROWING SUPERVISOR - DBN, MANNY, FTT, ICUs, and CVSICU Only Waste Sort Code = BLACK RCRA Hazardous Waste Container, Blood Glucose Target - Daytime (mg/dL): 140, Blood Glucose Target - Nighttime (mg/dL): 180, Hyperglycemia Correction Factor: 50, Insulin Calculator Group 2: albuterol (PROVENTIL HFA;VENTOLIN HFA) inhaler 2 PuffJump to med 2 Puff, Inhalation, PRN, Starting on 02/14/25 at 1807, Until Fri02/18/25 at 2315, Wheezing, Shortness of Breath, Waste Sort Code = BLACK [place] Hazardous Waste Container Or albuterol (PROVENTIL) nebulizer solution 2.5 mgJump to med 2.5 mg, Nebulization, PRN, Starting on 02/14/25 at 1807, Until Fri02/18/25 at 2315, Wheezing, Shortness of Breath, Bronchospasm Group 3: glucagon (GLUCAGEN) injection 1 mgJump to med 1 mg, Intramuscular, PRN, Starting on 02/12/25 at 0434, Until Fri02/18/25 at 2315, Low blood sugar, If FSBS less than 70 mg/dl, patient cannot take orally and without IV access, If patient is without IV access, give Glucagon 1 mg Intramuscularly, insert IV and call physician., Insulin Calculator And sterile water injection 1 mLJump to med 1 mL, Injection, PRN, Starting on 02/12/25 at 0434, Until Fri02/18/25 at 2315, Use for drug dilution, Use to dilute and administer glucagon injection, Insulin Calculator Group 4: ondansetron (ZOFRAN) tablet 4 mgJump to med 4 mg, Oral, EVERY 4 HOURS PRN, Starting on 02/12/25 at 0432, Until Fri02/18/25 at 2315, Nausea Or ondansetron (ZOFRAN) injection 4 mgJump to med 4 mg, Intravenous, EVERY 4 HOURS PRN, Starting on 02/12/25 at 0432, Until Fri02/18/25 at 2315, Nausea Group 5: ondansetron (ZOFRAN) injection 4 mgJump to med 4 mg, Intravenous, ONCE PRN, 1 dose, Starting on Fri02/18/25 at 1132, Until Fri02/18/25 at 2315, Nausea, Do not give if patient received granisetron (Kytril) or ondansetron (Zofran) within 4 hours., PACU Or ondansetron (ZOFRAN-ODT) disintegrating tablet 8 mgJump to med 8 mg, Oral, ONCE PRN, 1 dose, Starting on Fri02/18/25 at 1132, Until Fri02/18/25 at 2315, Nausea, Do not give if patient received granisetron (Kytril) or ondansetron (Zofran) within 4 hours., PACU Group 6: promethazine (PHENERGAN) 6.25 mg in sodium chloride 0.9% 10 mL injectionJump to med 6.25 mg, Intravenous, PRN, Starting on Fri02/18/25 at 1132, Until Fri02/18/25 at 1931, Nausea, For nausea unrelieved by droperidol or pre-op antiemetic. Begin with lowest dose unless otherwise directed. Give remainder of dose if nausea unrelieved in 20 minutes. Not to exceed 25 mg in one hour unless otherwise ordered by Anesthesia Coordinator. VESICANT , PACU Or promethazine (PHENERGAN) 12.5 mg in sodium chloride 0.9% 10 mL injectionJump to med 12.5 mg, Intravenous, PRN, Starting on Fri02/18/25 at 1132, Until Fri02/18/25 at 1931, Nausea, For nausea unrelieved by droperidol or pre-op antiemetic. Begin with lowest dose unless otherwise directed. Give remainder of dose if nausea unrelieved in 20 minutes. Not to exceed 25 mg in one hour unless otherwise ordered by Anesthesia Coordinator. VESICANT , PACU documented in this encounter Orders Medications Ordered That Archie ht Not Have Been Administered Count Last Ordered Date First Ordered Date fentaNYL (SUBLIMAZE) injection 25 mcg 1 HYDROmorphone (DILAUDID) injection 0.25 mg 1 02/18/2025 ondansetron (ZOFRAN) injection 4 mg 1 02/18 ondansetron (ZOFRAN-ODT) dis integrating tablet 8 mg 1 02/18/2025 oxyCODONE (ROXICODONE) immed iate release tablet 5 mg 1 02/18/2025 promethazine (PHENERGAN) 12. 5 mg in sodium chloride 0.9% 10 mL injection 1 02/18/2025 promethazine (PHENERGAN) 6.2 5 mg in sodium chloride 0.9% 10 mL injection 1 02/18/2025 polyethylene glycol (GoLYTEL Y) suspension 2,000 mL 1 02/16/2025 warfarin (COUMADIN) tablet 7.5 mg 1 025 albuterol (PROVENTIL HFA;DAVID TOLIN HFA) inhaler 2 Puff 2 02/14/2025 02/12/2025 albuterol (PROVENTIL) nebuli zer solution 2.5 mg 1 02/14/2025 acetaminophen (TYLENOL) tablet 650 mg 2 03/2025 dextromethorphan-guaiFENesin (ROBITUSSIN DM) 10-100 mg/5 mL syrup 10 mL 1 02/12/2025 dextrose 50 % solution 25 mL 1 02/12/2025 docusate sodium (COLACE) capsule 100 mg 1 0 02/12/2025 glucagon (GLUCAGEN) injection 1 mg 1 2024 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) - FSBS (Correction Only) Input 1 02/12/2025 morphine (MS CONTIN) CR tablet 15 mg 1 03/2025 ondansetron (ZOFRAN) tablet 4 mg 1 02/13/20 25 oxyCODONE (OxyCONTIN) CR tablet 15 mg 1 03/2025 sodium chloride 0.9% IV line flush 50 mL 1 02/12/2025 sodium chloride 0.9% syringe 5-10 mL 1 03/2025 sterile water injection 1 mL 1 02/12/2025 torsemide (DEMADEX) tablet 20 mg 1 02/13/20 25 traMADoL (ULTRAM) tablet 50-100 mg 1 2024 Nursing Count Last Ordered Date First Orde red Date MECH VTE PROPH NON-CANDIDATE 1 02/12/2025 PHARM VTE PROPH NON-CANDIDATE 1 02/12/2025 Consult Count Last Ordered Date First Orde red Date IP CONSULT TO PHARMACY 2 02/17/202502/12 Inpatient consult to wound c are for:Other (comment); LLQ abdomen cellulitis 1 02/12/2025 IP CONSULT TO CARDIOLOGY 1 02/12/2025 OT Count Last Ordered Date First Orde red Date IP CONSULT TO OCCUPATIONAL THERAPY 1 2024 PT Count Last Ordered Date First Orde red Date IP CONSULT TO PHYSICAL THERAPY 1 02/12/2025 PT PLAN OF CARE CERTIFICATION 1 02/12/2025 Respiratory Care Count Last Ordered Date First Ordered Date RESPIRATORY EVALUATE & TREAT 1 02/12/2025 Admission Count Last Ordered Date First Orde red Date ADMIT 2 02/13/2025 02/12/2025 Discharge Count Last Ordered Date First Orde red Date DISCHARGE PATIENT 1 02/18/2025 documented in this encounter Additional Health Concerns Assessment Noted Time PHQ-9 Depression Total Score: 2 02/15/20 25 12:22 PM EDT PHQ-2 Depression Total Score: 2 02/15/20 25 12:22 PM EDT documented as of this encounter Care Teams Escrow Agent Relationship Specialty Start Date End Date Miguel Angel Ohara MD [address] [facility] [address] [place] [id number] PCP - General Family Medicine 04/13/24 Jennifer Carmona MD [address] [place] [address] Consulting Physician Internal Medicine-Nephrology 08/24/20 documented as of this encounter
--- OUTSIDE RECORDS SUMMARY | 2025-02-18 10:23 | XMS_ITS | Encounter Summary ---
Author Organization [place] [address] Care Team Providers Care Graphic Artist Name Role Phone Tali Carmona MD Unavailable [phone] Miguel Angel Ohara MD Primary Care Provider [phone] Reason for Visit * Auth/Cert/Inpt (Routine) Specialty Diagnoses / Procedures Referred By Contac t Referred To Contact Diagnoses REYES (dyspnea on exertion) Referral ID Status Reason Start Date Expiration Date Visits Re quested Visits Authorized [id number] 1 1 Encounter Details Date Type Department Care Team (Late st Contact Info) Description 02/18/2025 10:23 AM EDT Anesthesia Event [facility] ENDOSCOPY [address] [place] [address] Danya Rossi MD [address] [place] [address] [place] [address] Kwaku Drake MD [address] [place], [place] [id number] Anesthesia Record Procedure Summary Procedure Name Responsible Anesthesiologist Anesthesia Start Time Anesthesia Stop Time ESOPHAGOGASTRODUODENOSCOPY (EGD) Danya Rossi MD 02/18/25 1023 02/18/25 1119 Events Date Time Event Comment 02/18/2025 0949 1023 An Start 1025 An Start Data 1025 Immediate Pre Anesthetic Ass es 1029 An Induction 1029 An Intubation 1037 Anesthesia Ready 1117 An Emergence 1117 An Extubation 1117 an stop data 1119 Handoff I completed my SBAR handoff to the receiving nurse which has included the followin. Identification of the patient, family, or patient surrogate 2. Identification of the responsible practitioner 3. Pertinent medical history 4. Surgical procedure and reason for procedure 5. Intraoperative anesthetic management 6. All current lines, drains and respiratory support. 7. Outstanding follow up orders (X-rays, consults etc) 8. Expectations/Plans for the early post-procedure period 9. Opportunity for questions and acknowledgement of understanding from the receiving PACU/ICU steam power plant operator 1119 An Stop Meds Name Total lidocaine injection 1% 80 mg propofol (DIPRIVAN) injection 300 mg rocuronium (ZEMURON) 10 mg/mL injection 5 mg succinylcholine (PF)(ANECTINE) 20 mg/mL injection (BRY) 200 mg ondansetron (ZOFRAN) injection 4 mg /2 m L 4 mg lactated ringers infusion 0 mL * Agents Name O2 N2O Air Et Desflurane * Blood No blood administrations on file. Lines, Drains, and Airways Type Details Placement Removal Peripheral IV 02/14/25; 929; 02/04 02/28; 20; 1.75; Nexiva Diffusics; Left, Dorsal, Lateral; Forearm; ESerena rn VAT; 1; Ultrasound guided; 02/18/25; 2310 02/14/25 0930 by Heather Tamez RN 02/18/25 2310 by Discharge Provider, Automatic Airway Size: 8 mm; Placemen t Date: 02/18/25; Placement Time: 1045 (created via procedure documentation); Removal Date: 02/18/25; Removal Time: 1117 02/18/25 1045 by Danya Rossi MD 02/18/25 1117 by Danya Rossi MD documented in this encounter Social History Tobacco Use Types Packs/Day Years Used Date Smoking Tobacco: Never Smokeless Tobacco: Never Alcohol Use Standard Drinks/Week Comments Never 0 (1 standard drink = 0.6 oz pur e alcohol) [facility] Utilities Answer Date Recorded In the past 12 months has [employer], gas, oil, or water [employer] threatened to shut off services in your [...] Date Recorded PHQ-2 Total Score 2 02/14/2025 [facility] Occupat ional Health - Occupational Stress [...] money to get more. Never true 05/2025 [facility] IP Transportation Answer D ate Recorded [...] Assessment Author No 01/06/2025 12:07 PM Elysia Nelson, YENNY * Does this person have serious difficulty walking or climbing stairs? Answer Date of Assessment Author Yes 01/06/2025 12:07 PM Elysia Nelson, YENNY * Does this person have difficulty dressing or bathing? Answer Date of Assessment Author Yes 01/06/2025 12:07 PM EDT Elysia Stacy RN * Because of a physical, mental or emotional condition, does this person have difficulty doing errands alone such as visiting a doctor's office or shopping? Answer Date of Assessment Author Yes 01/06/2025 12:07 PM EDT Elysia Stacy RN documented as of this encounter Mental Status * Because of a physical, mental or emotional condition, does this person have serious difficulty concentrating, remembering or making decisions? Answer Entry Date Author No 01/06/2025 12:07 PM EDT Elysia Stacy RN documented in this encounter Procedure Notes * Danya Rossi MD - 02/18/2025 10:45 AM EDTAssociated Order(s): Airway Intraop Airway Placement: Date/Time: 02/18/2025 10:45 AM Induction type: IV and Rapid sequence Mask size: Standard adult Pre-Oxygenation: Standard Mask ventilation: Not attempted Technique: Video laryngoscope Laryngoscope blade: Carrasco Blade size: 3 Grade view: I Topical Anesthetic/Lubricant: Lubricant jelly Intubation assist devices: Stylet 14fr Airway location: Oral Device size: 8mm Secured at: 2 cm Secured by: Tape Placement verified: Auscultation and End tidal CO2 Condition: Atraumatic and Unchanged Insertion attempts: 1 Title: Anesthesiologist documented in this encounter OR Notes * Anesthesia Postprocedure Evaluation - Soraya Looney DO - 02/18/2025 1:00 PM EDT Post-Anesthesia Evaluation Note Patient Name: Evangelist Cramer Patient Date: February 18, 2025 Post-Anesthesia Evaluation Patient Location: ENDO Post op vitals: stable Difficult airway: no Nausea controlled: yes Level of consciousness: awake Post anesthesia pain: adequate analgesia Airway patency: patent Respiratory status: room air Cardiovascular status: stable Hydration status: euvolemic Temperature: Normothermia Perioperative complications: NONE Vitals Value Taken Time BP 163/80 02/18/25 12:30 Resp 18 02/18/25 12:30 SpO2 100 % 02/18/25 12:30 Temp 36.2 ??C (97.2 ??F) 02/18/25 12:30 Pulse 90 02/18/25 12:30 * Anesthesia Preprocedure Evaluation - Danya Rossi MD - 02/17/2025 10:13 AM EDT Images from the original note were not included. Pre-Anesthesia Evaluation Note Patient Name: Evangelist Cramer Sex: female Patient : 1980 Age: 44 y.o. Patient Date: February 17, 2025 Anesthesia Evaluation Previous anesthesia. No history of anesthetic complications: No family history of anesthesia complications: Airway Mallampati: III TM distance: >3 FB Neck ROM: full Dental Pulmonary (+) Sleep apnea on CPAP Pulmonary embolism (hx/o, IVC filter) Cardiovascular Comments: Echo 02/12/2025 IMPRESSION Conclusions * Left ventricle is [...] cm and a RV s' of 16.3 cm/s (+)Hypertension: Hyperlipidemia CHF (preserved EF, diuresed this admission): Shortness of breath: Physical exam: Rhythm: regular Rate: normal (-) no CAD/WA (no calcification on recent CT) Neuro/Psych (+) Psychiatric history: Peripheral neuropathy GI/Hepatic/Renal (+)Acute kidney injury Chronic kidney disease: Endo/Other Comments: Factor V Leiden s/p IVC filter. 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 Anesthesia Plan ASA 4 Last solid intake: The patient has not eaten within the last 8 hours. Last clear liquid intake: The patient has not had clear liquids within the last 2 hours. Anesthesia Plan: MAC Induction: intravenous Monitors: STD High BMI with known AURELIA, may present difficulty with airway management Informed consent Anesthetic plan and risks discussed with: patient. Chart Reviewed and patient examined documented in this encounter Plan of Treatment Not on file documented as of this encounter Procedures Procedure Name Priority Date/Time Associated Diagnosis Comments INTRAOP AIRWAY PLACEMENT Routine 02/18/2025 10:45 AM EDT documented in this encounter Results * INTRAOP AIRWAY PLACEMENT (02/18/2025 10:45 AM EDT) Narrative [facility] - 02/18/2025 10:45 AM EDT Danya Rossi MD 02/18/2025 10:46 AM Intraop Airway Placement: Date/Time: 02/18/2025 10:45 AM Induction type: IV and Rapid sequence Mask size: Standard adult Pre-Oxygenation: Standard Mask ventilation: Not attempted Technique: Video laryngoscope Laryngoscope blade: Carrasco Blade size: 3 Grade view: I Topical Anesthetic/Lubricant: Lubricant jelly Intubation assist devices: Stylet 14fr Airway location: Oral Device size: 8mm Secured at: 2 cm Secured by: Tape Placement verified: Auscultation and End tidal CO2 Condition: Atraumatic and Unchanged Insertion attempts: 1 Title: Anesthesiologist us Danya Rossi MD MA ANESTHESIA Final Result [facility] [address] [place] [address] documented in this encounter Visit Diagnoses Not on filedocumented in this encounter Administered Medications Inactive Administered Medications - up to 1 most recent administrations Medication Order MAR Action Action Date Dose Rate Site lidocaine 1% 10 mg/mL (1 %) injection Intravenous, PRN (Anesthesia), Starting on Fri02/18/25 at 1029, Until Fri02/18/25 at 1120, Anesthesia Intra-op Given 02/18/2025 10:29 AM EDT 80 mg ondansetron (ZOFRAN) injection Intravenous, PRN (Anesthesia), Starting on Fri02/18/25 at 1040, Until Fri02/18/25 at 1120, Anesthesia Intra-op Given 02/18/2025 10:40 AM EDT 4 mg propofoL (DIPRIVAN) injection Intravenous, PRN (Anesthesia), Starting on Fri02/18/25 at 1029, Until Fri02/18/25 at 1120, Anesthesia Intra-op Given 02/18/2025 10:29 AM EDT 300 mg rocuronium injection Intravenous, PRN (Anesthesia), Starting on Fri02/18/25 at 1029, Until Fri02/18/25 at 1120, Anesthesia Intra-op Given 02/18/2025 10:29 AM EDT 5 mg succinylcholine (PF) (ANECTINE) 20 mg/mL injection Intravenous, PRN (Anesthesia), Starting on Fri02/18/25 at 1029, Until Fri02/18/25 at 1120, Anesthesia Intra-op Given 02/18/2025 10:29 AM EDT 200 mg documented in this encounter Additional Health Concerns Assessment Noted Time PHQ-9 Depression Total Score: 2 02/15/20 12:22 PM EDT PHQ-2 Depression Total Score: 2 02/15/20 12:22 PM EDT documented as of this encounter Care Teams Graphic Artist Relationship Specialty Start Date End Date Miguel Angel Ohara MD [address] [place] [address] PCP - General Family Medicine 04/13/24 Tali Carmona MD [address] [place] [address] Consulting Physician Internal Medicine-Nephrology 08/24/20 documented as of this encounter
--- OUTSIDE RECORDS SUMMARY | 2025-02-19 05:00 | XMS_ITS | Encounter Summary ---
Author Organization [facility] [address] Care Team Providers Care Watch Commander Name Role Phone Tali Carmona MD Unavailable [phone] Miguel Angel Ohara MD Primary Care Provider [phone] Encounter Details Date Type Department Care Team (Latest Contact Info) Description 02/19/2025 5:00 AM EDT - 02/19/2025 11:59 PM EDT Hospital Encounter [facility] Referral Lab 1 [place], [place] [id number] Nicola Figueroa MD [address] [address] Discharge Disposition: Home or Self Care Social History Tobacco Use Types Packs/Day Years Used Date Smoking Tobacco: Never Smokeless Tobacco: Never Alcohol Use Standard Drinks/Week Comments Never 0 (1 standard drink = 0.6 oz pur e alcohol) [facility] Utilities Answer Date Recorded In the past 12 months has [employer], gas, oil, or water [employer] threatened to shut off services in [...] Date Recorded PHQ-2 Total Score 2 02/14/2025 [facility] - Occupational Stress Questionnaire Answer Date [...] money to get more. Never true 05/2025 [facility] IP Transportation Answer D ate [...] 02/18/2025 02/23/2025 documented as of this encounter Discharge Disposition Disposition Code Departure Means Destination Home or Self Care documented in this encounter Plan of Treatment Not on file documented as of this encounter Procedures Procedure Name Priority Date/Time Associated Diagnosis Comments PT / INR Routine 02/19/2025 6:45 AM EDT CBC WITH DIFF Routine 02/19/2025 6:45 AM EDT BASIC METABOLIC PANEL Routine 02/19/2025 6:45 AM EDT documented in this encounter Results * (ABNORMAL) PT / INR (02/19/2025 6:45 AM EDT) PT 14.5(H) 10.5 - 13.6 second(s) 02/19/2025 8:12 AM EDT [facility] INR 1.26(H) 0.91 - 1.18 (ratio) 02/19/2025 8:12 AM EDT [facility] Comment: Level of Therapy Indications Target INR Range Standard Dose Treatment and prophylaxis of venous 2.0 - 3.0 thrombosis, pulmonary embolism High Dose High risk patients with mechanical 2.5 - 3.5 heart valves Blood VENOUS BLOOD / Unknown Venipuncture / Unknown 02/19/2025 6:45 AM EDT 02/19/2025 7:52 AM EDT us Dioni Alvarez MD HEMATOLOGY ORDERABLES Final Re sult [facility] [address] [facility] , [address] [place] [id number] * (ABNORMAL) BASIC METABOLIC PANEL (02/19/2025 6:45 AM EDT) Sodium 139 136 - 145 mmol/L 02/19/2025 8:25 AM EDT [facility] Potassium 4.3 3.5 - 5.0 mmol/L 02/19/2025 8:25 AM EDT [facility] Chloride 103 98 - 107 mmol/L 02/19/2025 8:25 AM EDT [facility] Total CO2 26 22 - 29 mmol/L 02/19/2025 8:25 AM EDT [facility] Anion Gap 10 7 - 16 mmol/L 02/19/2025 8:25 AM EDT [facility] Calcium 8.3(L) 8.6 - 10.4 mg/dL 02/19/2025 8:25 AM EDT [facility] Glucose Lvl 169(H) 70 - 99 mg/dL 02/19/2025 8:25 AM EDT [facility] BUN 15 6 - 20 mg/dL 02/19/2025 8:25 AM EDT [facility] Creatinine 1.22 0.51 - 1.30 mg/dL 02/19/2025 8:25 AM EDT [facility] eGFR (CKD-EPIcr 2020) 56(L) >=60 mL/min/1.7 3 m2 02/19/2025 8:25 AM EDT [facility] Comment:Estimated GFR was ca lculated using the CKD-EPIcr (2020) equation refit without race. The equation is recommended by the National Kidney Foundation - [place] Society of Nephrology Task Force. Blood VENOUS BLOOD / Unknown Venipuncture / Unknown 02/19/2025 6:45 AM EDT 02/19/2025 7:52 AM EDT us Nicola Figueroa MD CHEMISTRY ORDERABLES Fi nal Result [facility] [address] [facility] , [place] [address] * (ABNORMAL) CBC WITH DIFF (02/19/2025 6:45 AM EDT) WBC 6.6 3.7 - 10.3 x10(3)/mcL 02/19/2025 8:03 AM EDT [facility] RBC 4.35 3.90 - 5.20 x10(6)/mcL 02/19/2025 8:03 AM EDT [facility] Hgb 9.5(L) 11.2 - 15.7 g/dL 02/19/2025 8:03 AM EDT [facility] Hct 32.7(L) 34.0 - 45.0 % 02/19/2025 8:03 AM EDT [facility] MCV 75.2(L) 80.0 - 100.0 fL 02/19/2025 8:03 AM EDT [facility] MCH 21.8(L) 26.0 - 34.0 pg 02/19/2025 8:03 AM EDT [facility] MCHC 29.1(L) 30.7 - 35.5 g/dL 02/19/2025 8:03 AM EDT [facility] RDW 20.3(H) <=14.9 % 02/19/2025 8:03 AM EDT [facility] Platelet 265 155 - 369 x10(3)/mcL 02/19/2025 8:03 AM EDT [facility] MPV 11.2 8.8 - 12.5 fL 02/19/2025 8:03 AM EDT [facility] Neut Percent 71.7 % 02/19/2025 8:03 AM EDT [facility] Comment:Neutrophils equals s egs plus bands Imm Gran% 0.3 % 02/19/2025 8:03 AM EDT [facility] Comment:Automated count of m etamyelocytes, myelocytes and promyelocytes. Lymph Percent 18.7 % 02/19/2025 8:03 AM EDT [facility] Dillon Percent 5.9 % 02/19/2025 8:03 AM EDT [facility] Eos Percent 2.9 % 02/19/2025 8:03 AM EDT [facility] Baso Percent 0.5 % 02/19/2025 8:03 AM EDT [facility] Neut # 4.7 1.6 - 6.1 x10(3)/[facility] 02/19/2025 8:03 AM EDT [facility] Comment:Neutrophils equals s egs plus bands IMMGRAN# 0.0 0.0 - 0.1 x10(3)/mcL 02/19/2025 8:03 AM EDT [facility] Comment:Automated count of m etamyelocytes, myelocytes and promyelocytes. An absolute IG <0.1 is reported as 0.0. Lymph # 1.2 1.2 - 3.9 x10(3)/mcL 02/19/2025 8:03 AM EDT [facility] Dillon # 0.4 0.3 - 0.9 x10(3)/mcL 02/19/2025 8:03 AM EDT [facility] Eos# 0.2 0.0 - 0.5 x10(3)/mcL 02/19/2025 8:03 AM EDT [facility] Baso # 0.0 0.0 - 0.1 x10(3)/[facility] 02/19/2025 8:03 AM EDT [facility] Blood VENOUS BLOOD / Unknown Venipuncture / Unknown 02/19/2025 6:45 AM EDT 02/19/2025 7:52 AM EDT us Nicola Figueroa MD HEMATOLOGY ORDERABLES F inal Result [facility] [address] [facility] , [place] [address] documented in this encounter Visit Diagnoses Not on filedocumented in this encounter Additional Health Concerns Assessment Noted Time PHQ-9 Depression Total Score: 2 02/15/20 25 12:22 PM EDT PHQ-2 Depression Total Score: 2 02/15/20 25 12:22 PM EDT documented as of this encounter Care Teams Watch Commander Relationship Specialty Start Date End Date Miguel Angel Ohara MD [address] [facility] [address] [place] [address] PCP - General Family Medicine 04/13/24 Tali Carmona MD [address] [facility] [address] [place] [address] Consulting Physician Internal Medicine-Nephrology 08/24/20 documented as of this encounter
--- OUTSIDE RECORDS SUMMARY | 2025-02-19 05:00 | XMS_ITS | Encounter Summary ---
Author Organization [place] [address] Care Team Providers Care Explosive Ordnance Handler Name Role Phone Tali Carmona MD Unavailable [phone] Miguel Angel Ohara MD Primary Care Provider [phone] Encounter Details Date Type Department Care Team (Late st Contact Info) Description 02/19/2025 5:00 AM EDT Hospital Encounter [facility] Ref[facility] 1 [place] [address] Dioni Alvarez MD [address] [address] Social History Tobacco Use Types Packs/Day Years Used Date Smoking Tobacco: Never Smokeless Tobacco: Never Alcohol Use Standard Drinks/Week Comments Never 0 (1 standard drink = 0.6 oz pur e alcohol) [facility] Utilities Answer Date Recorded In the past 12 months has [employer], gas, oil, or water [employer] threatened to shut off services in your [...] Date Recorded PHQ-2 Total Score 2 02/14/2025 [facility] of Occupat ional Health - Occupational Stress [...] money to get more. Never true 05/2025 [facility] IP Transportation Answer D ate Recorded In [...] 01/06/2025 12:07 PM Elysia Nelson, YENNY * Is the person blind or does [...] 01/06/2025 12:07 PM Elysia Nelson, YENNY * Because of a physical, mental or [...] 13.6 second(s) 02/19/2025 8:12 AM EDT [facility] INR 1.26(H) 0.91 - 1.18 (ratio) 02/19/2025 8:12 AM EDT [facility] Comment: Level of Therapy Indications Target INR Range Standard Dose Treatment and prophylaxis of venous 2.0 - 3.0 thrombosis, pulmonary embolism High Dose High risk patients with mechanical 2.5 - 3.5 heart valves Blood VENOUS BLOOD / Unknown Venipuncture / Unknown 02/19/2025 6:45 AM EDT 02/19/2025 7:52 AM EDT us Dioni Alvarez MD HEMATOLOGY ORDERABLES Final Re sult [facility] [address] [facility], [place] [address] documented in this encounter Visit Diagnoses Not on filedocumented in this encounter Additional Health Concerns Assessment Noted Time PHQ-9 Depression Total Score: 2 02/15/20 25 12:22 PM EDT PHQ-2 Depression Total Score: 2 02/15/20 25 12:22 PM EDT documented as of this encounter Care Teams Explosive Ordnance Handler Relationship Specialty Start Date End Date Miguel Angel Ohara MD [address] [place] [address] PCP - General Family Medicine 04/13/24 Tali Carmona MD [address] [place] [address] Consulting Physician Internal Medicine-Nephrology 08/24/20 documented as of this encounter
--- OUTSIDE RECORDS SUMMARY | 2025-02-20 05:00 | XMS_ITS | Encounter Summary ---
Author Organization [place] [address] Care Team Providers Care Customer Service Officer Name Role Phone Tali Carmona MD Unavailable [phone] Miguel Angel Ohara MD Primary Care Provider [phone] Encounter Details Date Type Department Care Team (Latest Contact Info) Description 02/20/2025 5:00 AM EDT - 02/20/2025 11:59 PM EDT Hospital Encounter [facility] Referral Lab 1 [place] [id number] Dioni Alvarez MD [address] [address] Discharge Disposition: Home or Self Care Social History Tobacco Use Types Packs/Day Years Used Date Smoking Tobacco: Never Smokeless Tobacco: Never Alcohol Use Standard Drinks/Week Comments Never 0 (1 standard drink = 0.6 oz pur e alcohol) [facility] Utilities Answer Date Recorded In the past 12 months has [employer], gas, oil, or water [employer] threatened to shut off services in your [...] Date Recorded PHQ-2 Total Score 2 02/14/2025 [facility] - Occupational Stress Questionnaire Answer Date [...] money to get more. Never true 05/2025 [facility] IP Transportation Answer D ate Recorded [...] Associated Diagnosis Comments PT / INR Routine 02/20/2025 7:18 AM EDT documented in this encounter Results * (ABNORMAL) PT / INR (02/20/2025 7:18 AM EDT) PT 15.4(H) 10.5 - 13.6 second(s) 02/20/2025 8:06 AM EDT [facility] INR 1.33(H) 0.91 - 1.18 (ratio) 02/20/2025 8:06 AM EDT [facility] Comment: Level of Therapy Indications Target INR Range Standard Dose Treatment and prophylaxis of venous 2.0 - 3.0 thrombosis, pulmonary embolism High Dose High risk patients with mechanical 2.5 - 3.5 heart valves Blood VENOUS BLOOD / Unknown Venipuncture / Unknown 02/20/2025 7:18 AM EDT 02/20/2025 7:18 AM EDT us Dioni Alvarez MD HEMATOLOGY ORDERABLES Final Re sult [facility] [address] [facility] , [address] [place] [phone] documented in this encounter Visit Diagnoses Not on filedocumented in this encounter Additional Health Concerns Assessment Noted Time PHQ-9 Depression Total Score: 2 02/15/20 25 12:22 PM EDT PHQ-2 Depression Total Score: 2 02/15/20 12:22 PM EDT documented as of this encounter Care Teams Customer Service Officer Relationship Specialty Start Date End Date Miguel Angel hOara MD [address] [facility] [address] [place] [address] PCP - General Family Medicine 04/13/24 Tali Carmona MD [address] [facility] [address] [place] [address] Consulting Physician Internal Medicine-Nephrology 08/24/20 documented as of this encounter
--- OUTSIDE RECORDS SUMMARY | 2025-02-21 08:19 | XMS_ITS | Encounter Summary ---
Author Organization [place] [address] Care Team Providers Care Cloth Booker Name Role Phone Tali Carmona MD Unavailable Miguel Angel Ohara MD Primary Care Provider [phone] Encounter Details Date Type Department Care Team (Latest Contact Info) Description 02/21/2025 8:19 AM EDT - 02/21/2025 12:20 PM EDT Hospital Encounter [facility] Referral Lab 1 [place] [phone] Dioni Alvarez MD [address] [address] Discharge Disposition: Home or Self Care Social History Tobacco Use Types Packs/Day Years Used Date Smoking Tobacco: Never Smokeless Tobacco: Never Alcohol Use Standard Drinks/Week Comments Never 0 (1 standard drink = 0.6 oz pur e alcohol) [facility] Utilities Answer Date Recorded In the past 12 months has [employer], gas, oil, or water [employer] threatened to shut off services in your [...] Date Recorded PHQ-2 Total Score 2 02/14/2025 [facility] - Occupational Stress Questionnaire Answer Date [...] Never true 05/2025 [facility] IP Transportation Answer D [...] on file documented as of this encounter Visit Diagnoses Not on filedocumented in this encounter Orders Lab Orders Without Results Count Last Ordered D ate First Ordered Date PT / INR 1 02/21/2025 documented in this encounter Additional Health Concerns Assessment Noted Time PHQ-9 Depression Total Score: 2 02/15/20 25 12:22 PM EDT PHQ-2 Depression Total Score: 2 02/15/20 25 12:22 PM EDT documented as of this encounter Care Teams Cloth Booker Relationship Specialty Start Date End Date Miguel Angel Ohara MD [address] [place] [address] PCP - General Family Medicine 04/13/24 Tali Carmona MD [address] [place] [address] Consulting Physician Internal Medicine-Nephrology 08/24/20 documented as of this encounter
--- OUTSIDE RECORDS SUMMARY | 2025-02-21 12:21 | XMS_ITS | Encounter Summary ---
Author Organization [place] [address] Care Team Providers Care Digital Product Specialist Name Role Phone Tali Carmona MD Unavailable [phone] Miguel Angel Ohara MD Primary Care Provider [phone] Encounter Details Date Type Department Care Team (Latest Contact Info) Description 02/21/2025 12:21 PM EDT - 02/21/2025 11:59 PM EDT Hospital Encounter [facility] Referral Lab 1 [place], [place] [id number] Nicola Figueroa MD [address] [address] Discharge Disposition: Home or Self Care Social History Tobacco Use Types Packs/Day Years Used Date Smoking Tobacco: Never Smokeless Tobacco: Never Alcohol Use Standard Drinks/Week Comments Never 0 (1 standard drink = 0.6 oz pur e alcohol) [facility] Utilities Answer Date Recorded In the past 12 months has [employer], gas, oil, or water [employer] threatened to shut off services in your [...] Date Recorded PHQ-2 Total Score 2 02/14/2025 [facility] - Occupational Stress Questionnaire Answer Date Recorded [...] money to get more. Never true 05/2025 [facility] IP Transportation Answer D ate Recorded In [...] Associated Diagnosis Comments PT / INR Today 02/21/2025 4:00 PM EDT documented in this encounter Results * (ABNORMAL) PT / INR (02/21/2025 4:00 PM EDT) PT 16.7(H) 10.5 - 13.6 second(s) 02/21/2025 4:42 PM EDT PREFERRED [employer] INR 1.44(H) 0.91 - 1.18 (ratio) 02/21/2025 4:42 PM EDT [employer] Comment: Level of Therapy Indications Target INR Range Standard Dose Treatment and prophylaxis of venous 2.0 - 3.0 thrombosis, pulmonary embolism High Dose High risk patients with mechanical 2.5 - 3.5 heart valves Blood VENOUS BLOOD / Unknown Venipuncture / Unknown 02/21/2025 4:00 PM EDT 02/21/2025 4:00 PM EDT us Nicola Figueroa MD HEMATOLOGY ORDERABLES F inal Result [facility] [employer] [address] [facility] , [address] [place] [id number] documented in this encounter Visit Diagnoses Not on filedocumented in this encounter Additional Health Concerns Assessment Noted Time PHQ-9 Depression Total Score: 2 02/15/20 25 12:22 PM EDT PHQ-2 Depression Total Score: 2 02/15/20 25 12:22 PM EDT documented as of this encounter Care Teams Digital Product Specialist Relationship Specialty Start Date End Date Miguel Angel Ohara MD [address] [facility] [address] [place] [address] PCP - General Family Medicine 04/13/24 Tali Carmona MD [address] [facility] [address] [place] [address] Consulting Physician Internal Medicine-Nephrology 08/24/20 documented as of this encounter
--- OUTSIDE RECORDS SUMMARY | 2025-02-22 06:52 | XMS_ITS | Encounter Summary ---
Author Organization [place] [address] Care Team Providers Care Park Police Name Role Phone Tali Carmona MD Unavailable [phone] Miguel Angel Ohara MD Primary Care Provider [phone] Encounter Details Date Type Department Care Team (Latest Contact Info) Description 02/22/2025 6:52 AM EDT - 02/22/2025 11:59 PM EDT Hospital Encounter [facility] Referral Lab 1 [place] [id number] Tali Carmona MD [address] [facility] [address] [place] [address] Discharge Disposition: Home or Self Care Social History Tobacco Use Types Packs/Day Years Used Date Smoking Tobacco: Never Smokeless Tobacco: Never Alcohol Use Standard Drinks/Week Comments Never 0 (1 standard drink = 0.6 oz pur e alcohol) [facility] Utilities Answer Date Recorded In the past 12 months has [employer], gas, oil, or water [employer] threatened to shut off services in your [...] Date Recorded PHQ-2 Total Score 2 02/14/2025 [facility] - Occupational Stress Questionnaire Answer Date Recorded [...] money to get more. Never true 05/[address] [facility] [address] IP Transportation Answer D ate Recorded [...] Associated Diagnosis Comments PT / INR Routine 02/22/2025 5:15 AM EDT BASIC METABOLIC PANEL Routine 02/22/2025 5:15 AM EDT documented in this encounter Results * (ABNORMAL) PT / INR (02/22/2025 5:15 AM EDT) PT 19.9(H) 10.5 - 13.6 second(s) 02/22/2025 7:48 AM EDT PREFERRED [employer] INR 1.71(H) 0.91 - 1.18 (ratio) 02/22/2025 7:48 AM EDT [employer] Comment: Level of Therapy Indications Target INR Range Standard Dose Treatment and prophylaxis of venous 2.0 - 3.0 thrombosis, pulmonary embolism High Dose High risk patients with mechanical 2.5 - 3.5 heart valves Blood VENOUS BLOOD / Unknown Venipuncture / Unknown 02/22/2025 5:15 AM EDT 02/22/2025 6:52 AM EDT us Tali Carmona MD HEMATOLOGY ORDERABLES Final Result [facility] [address] [facility] [facility], [place] [address] * (ABNORMAL) BASIC METABOLIC PANEL (02/22/2025 5:15 AM EDT) Sodium 138 136 - 145 mmol/L 02/22/2025 7:57 AM EDT [facility] Potassium 4.5 3.5 - 5.0 mmol/L 02/22/2025 7:57 AM EDT [facility] Chloride 102 98 - 107 mmol/L 02/22/2025 7:57 AM EDT [facility] Total CO2 26 22 - 29 mmol/L 02/22/2025 7:57 AM EDT [facility] Anion Gap 10 7 - 16 mmol/L 02/22/2025 7:57 AM EDT [facility] Calcium 8.5(L) 8.6 - 10.4 mg/dL 02/22/2025 7:57 AM EDT [facility] Glucose Lvl 163(H) 70 - 99 mg/dL 02/22/2025 7:57 AM EDT [facility] BUN 14 6 - 20 mg/dL 02/22/2025 7:57 AM EDT [facility] Creatinine 1.30 0.51 - 1.30 mg/dL 02/22/2025 7:57 AM EDT [facility] eGFR (CKD-EPIcr 2020) 52(L) >=60 mL/min/1.7 3 m2 02/22/2025 7:57 AM EDT [facility] Comment:Estimated GFR was ca lculated using the CKD-EPIcr (2020) equation refit without race. The equation is recommended by the National Kidney Foundation - [place] Society of Nephrology Task Force. Blood VENOUS BLOOD / Unknown Venipuncture / Unknown 02/22/2025 5:15 AM EDT 02/22/2025 6:52 AM EDT us Tali Carmona MD CHEMISTRY ORDERABLES Final R esult [facility] [address] [facility] [address], [address] [place] [phone] documented in this encounter Visit Diagnoses Not on filedocumented in this encounter Additional Health Concerns Assessment Noted Time PHQ-9 Depression Total Score: 2 02/15/20 12:22 PM EDT PHQ-2 Depression Total Score: 2 02/15/20 12:22 PM EDT documented as of this encounter Care Teams Park Police Relationship Specialty Start Date End Date Miguel Angel Ohara MD [address] [place] [address] PCP - General Family Medicine 04/13/24 Tali Carmona MD [address] [place] [address] Consulting Physician Internal Medicine-Nephrology 08/24/20 documented as of this encounter
--- OUTSIDE RECORDS SUMMARY | 2025-02-23 07:50 | XMS_ITS | Encounter Summary ---
Author Organization [place] [address] Care Team Providers Care Car Racer Name Role Phone Tali Carmona MD Unavailable [phone] Miguel Angel Ohara MD Primary Care Provider [phone] Encounter Details Date Type Department Care Team (Latest Contact Info) Description 02/23/2025 7:50 AM EDT - 02/23/2025 11:59 PM EDT Hospital Encounter [facility] Referral Lab 1 [place] [id number] Dioni Alvarez MD [address] [address] Routine general medical examination at a health care facility (Primary Dx) Discharge Disposition: Home or Self Care Social History Tobacco Use Types Packs/Day Years Used Date Smoking Tobacco: Never Smokeless Tobacco: Never Alcohol Use Standard Drinks/Week Comments Never 0 (1 standard drink = 0.6 oz pur e alcohol) [facility] Utilities Answer Date Recorded In the past 12 months has [employer], gas, oil, or water [employer] threatened to shut off services in your [...] Date Recorded PHQ-2 Total Score 2 02/14/2025 [facility] - Occupational Stress Questionnaire Answer Date [...] money to get more. Never true 05/2025 [facility] IP Transportation Answer D ate Recorded [...] Nelson RN * Does this person have serious [...] and 5 mg on all other days. documented as of this encounter Discharge Disposition Disposition Code Departure Means Destination Home or Self Care documented in this encounter Plan of Treatment Not on file documented as of this encounter Procedures Procedure Name Priority Date/Time Associated Diagnosis Comments VITAMIN D 25 HYDROXY Routine 02/23/2025 5:04 AM EDT Routine general medical examination at a [facility] care facility PT / INR Routine 02/23/2025 5:04 AM EDT Routine general medical examination at a [facility] facility VITAMIN B12 LEVEL Routine 02/23/2025 5:0 4 AM EDT Routine general medical examination at a [facility] facility documented in this encounter Results * VITAMIN B12 LEVEL (02/23/2025 5:04 AM EDT) Vitamin B12 409 232 - 1,245 pg/mL 02/23/2025 10:28 AM EDT [employer] Blood VENOUS BLOOD / Unknown Venipuncture / Unknown 02/23/2025 5:04 AM EDT 02/23/2025 8:02 AM EDT Narrative [employer] - 02/23/2025 10:28 AM EDT Ingestion of tom doses of biotin (>5 mg/day) taken within 8 hours of drawing blood sample can interfere with this immunoassay test. us Dioni Alvarez MD CHEMISTRY ORDERABLES Final Res ult Performing Organization Address [facility] de Phone Number [employer] [address] [facility] , [address] [place] [phone] * (ABNORMAL) VITAMIN D 25 HYDROXY (02/23/2025 5:04 AM EDT) Vit D 25 OH 10.4(L) 30.0 - 150.0 ng/mL 02/23/2025 10:28 AM EDT [employer] Comment: Preferred: >= 30 ng/mL Insufficient: 21-29 ng/mL Deficient <= 20 ng/mL Possible Toxicity: >150 ng/mL Samples should not be taken from patients receiving therapy with high biotin doses (i.e. > 5 mg/day) until at least 8 hours following the last biotin administration. Blood VENOUS BLOOD / Unknown Venipuncture / Unknown 02/23/2025 5:04 AM EDT 02/23/2025 8:02 AM EDT Dioni Alvarez MD CHEMISTRY ORDERABLES Final Res ult Performing Organization Address [facility] de Phone Number [employer] [address] [facility] , [place] [address] * (ABNORMAL) PT / INR (02/23/2025 5:04 AM EDT) Pathologist [facility] PT 24.3(H) 10.5 - 13.6 second(s) 02/23/2025 9:50 AM EDT [facility] [employer] INR 2.08(H) 0.91 - 1.18 (ratio) 02/23/2025 9:50 AM EDT [employer] Blood VENOUS BLOOD / Unknown Venipuncture / Unknown 02/23/2025 5:04 AM EDT 02/23/2025 8:02 AM EDT Dioni Alvarez MD HEMATOLOGY ORDERABLES Final Re sult Performing Organization Address [facility] Co de Phone Number [employer] [facility] [address] [facility] , [place] [address] documented in this encounter Visit Diagnoses Diagnosis Routine general medical examination at a health care facility- Primary documented in this encounter Additional Health Concerns Assessment Noted Time PHQ-9 Depression Total Score: 2 02/15/20 12:22 PM EDT PHQ-2 Depression Total Score: 2 02/15/20 12:22 PM EDT documented as of this encounter Care Teams Car Racer Relationship Specialty Start Date End Date Miguel Angel Ohara MD [address] [facility] [address] [place] [address] PCP - General Family Medicine 04/13/24 Tali Carmona MD [address]30 [facility] [address] [place] [address] Consulting Physician Internal Medicine-Nephrology 08/24/20 documented as of this encounter
--- OUTSIDE RECORDS SUMMARY | 2025-02-24 08:01 | XMS_ITS | Encounter Summary ---
Author Organization [place] [address] Care Team Providers Care Paper Coating Machine Operator Name Role Phone Tali Carmona MD Unavailable [phone] Miguel Angel Ohara MD Primary Care Provider [phone] Encounter Details Date Type Department Care Team (Latest Contact Info) Description 02/24/2025 8:01 AM EDT - 02/24/2025 11:59 PM EDT Hospital Encounter [facility] Referral Lab 1 [place] [phone] Dioni Alvarez MD [address] [address] Discharge Disposition: Home or Self Care Social History Tobacco Use Types Packs/Day Years Used Date Smoking Tobacco: Never Smokeless Tobacco: Never Alcohol Use Standard Drinks/Week Comments Never 0 (1 standard drink = 0.6 oz pur e alcohol) [facility] Utilities Answer Date Recorded In the past 12 months has [employer], gas, oil, or water [employer] threatened to shut off services in your [...] Date Recorded PHQ-2 Total Score 2 02/14/2025 [facility] - Occupational Stress Questionnaire Answer Date [...] money to get more. Never true 05/2025 [facility] IP Transportation Answer D ate Recorded In [...] Associated Diagnosis Comments PT / INR Routine 02/24/2025 4:49 AM EDT documented in this encounter Results * (ABNORMAL) PT / INR (02/24/2025 4:49 AM EDT) PT 27.0(H) 10.5 - 13.6 second(s) 02/24/2025 8:45 AM EDT [facility] INR 2.31(H) 0.91 - 1.18 (ratio) 02/24/2025 8:45 AM EDT [facility] Comment: Level of Therapy Indications Target INR Range Standard Dose Treatment and prophylaxis of venous 2.0 - 3.0 thrombosis, pulmonary embolism High Dose High risk patients with mechanical 2.5 - 3.5 heart valves Blood VENOUS BLOOD / Unknown Venipuncture / Unknown 02/24/2025 4:49 AM EDT 02/24/2025 8:01 AM EDT us Dioni Alvarez MD HEMATOLOGY ORDERABLES Final Re sult [facility] 1 [facility] , [place] [address] [place] [address] documented in this encounter Visit Diagnoses Not on filedocumented in this encounter Additional Health Concerns Assessment Noted Time PHQ-9 Depression Total Score: 2 02/15/20 25 12:22 PM EDT PHQ-2 Depression Total Score: 2 02/15/20 25 12:22 PM EDT documented as of this encounter Care Teams Paper Coating Machine Operator Relationship Specialty Start Date End Date Miguel Angel Ohara MD [address] [place] [address] PCP - General Family Medicine 04/13/24 Tali Carmona MD [address] [facility] [address] [place] [address] Consulting Physician Internal Medicine-Nephrology 08/24/20 documented as of this encounter
--- OUTSIDE RECORDS SUMMARY | 2025-02-25 06:50 | XMS_ITS | Encounter Summary ---
Author Organization [place] [address] Care Team Providers Care Product Tester Name Role Phone Tali Carmona MD Unavailable [phone] Miguel Angel Ohara MD Primary Care Provider [phone] Encounter Details Date Type Department Care Team (Latest Contact Info) Description 02/25/2025 6:50 AM EDT - 02/25/2025 11:59 PM EDT Hospital Encounter [facility] Referral Lab 1 [place] [phone] Tali Carmona MD [address] [facility] [address] [place] [address] Discharge Disposition: Home or Self Care Social History Tobacco Use Types Packs/Day Years Used Date Smoking Tobacco: Never Smokeless Tobacco: Never Alcohol Use Standard Drinks/Week Comments Never 0 (1 standard drink = 0.6 oz pur e alcohol) [facility] Utilities Answer Date Recorded In the past 12 months has [employer], gas, oil, or water [employer] threatened to shut off services in your [...] Date Recorded PHQ-2 Total Score 2 02/14/2025 [facility] - Occupational Stress Questionnaire Answer Date Recorded [...] money to get more. Never true 05/2025 [facility] IP Transportation Answer D ate Recorded [...] Associated Diagnosis Comments PT / INR Routine 02/25/2025 5:03 AM EDT BASIC METABOLIC PANEL Routine 02/25/2025 5:03 AM EDT documented in this encounter Results * (ABNORMAL) PT / INR (02/25/2025 5:03 AM EDT) PT 28.2(H) 10.5 - 13.6 second(s) 02/25/2025 8:56 AM EDT [employer] INR 2.41(H) 0.91 - 1.18 (ratio) 02/25/2025 8:56 AM EDT [employer] Comment: Level of Therapy Indications Target INR Range Standard Dose Treatment and prophylaxis of venous 2.0 - 3.0 thrombosis, pulmonary embolism High Dose High risk patients with mechanical 2.5 - 3.5 heart valves Blood VENOUS BLOOD / Unknown Venipuncture / Unknown 02/25/2025 5:03 AM EDT 02/25/2025 7:58 AM EDT us Tali Carmona MD HEMATOLOGY ORDERABLES Final Result [facility] [employer] [address], [place] [address] * (ABNORMAL) BASIC METABOLIC PANEL (02/25/2025 5:03 AM EDT) Sodium 137 136 - 145 mmol/L 02/25/2025 9:06 AM EDT [facility] Potassium 4.6 3.5 - 5.0 mmol/L 02/25/2025 9:06 AM EDT [facility] Chloride 103 98 - 107 mmol/L 02/25/2025 9:06 AM EDT [facility] Total CO2 25 22 - 29 mmol/L 02/25/2025 9:06 AM EDT [facility] Anion Gap 9 7 - 16 mmol/L 02/25/2025 9:06 AM EDT [facility] Calcium 8.3(L) 8.6 - 10.4 mg/dL 02/25/2025 9:06 AM EDT [facility] Glucose Lvl 139(H) 70 - 99 mg/dL 02/25/2025 9:06 AM EDT [facility] BUN 18 6 - 20 mg/dL 02/25/2025 9:06 AM EDT [facility] Creatinine 1.21 0.51 - 1.30 mg/dL 02/25/2025 9:06 AM EDT [facility] eGFR (CKD-EPIcr 2020) 56(L) >=60 mL/min/1.7 3 m2 02/25/2025 9:06 AM EDT [facility] Comment:Estimated GFR was ca lculated using the CKD-EPIcr (2020) equation refit without race. The equation is recommended by the National Kidney Foundation - [employer] [place] Society of Nephrology Task Force. Blood VENOUS BLOOD / Unknown Venipuncture / Unknown 02/25/2025 5:03 AM EDT 02/25/2025 7:58 AM EDT us Tali Carmona MD CHEMISTRY ORDERABLES Final R esult [facility] [address], [place] [address] documented in this encounter Visit Diagnoses Not on filedocumented in this encounter Additional Health Concerns Assessment Noted Time PHQ-9 Depression Total Score: 2 02/15/20 25 12:22 PM EDT PHQ-2 Depression Total Score: 2 02/15/20 25 12:22 PM EDT documented as of this encounter Care Teams Product Tester Relationship Specialty Start Date End Date Miguel Angel Ohara MD [address] [facility] [address] [place] [address] PCP - General Family Medicine 04/13/24 Tali Carmona MD [address] [place] [address] Consulting Physician Internal Medicine-Nephrology 08/24/20 documented as of this encounter
--- OUTSIDE RECORDS SUMMARY | 2025-02-26 07:14 | XMS_ITS | Encounter Summary ---
Author Organization [place] [address] Care Team Providers Care Counseling Specialist Name Role Phone Tali Carmona MD Unavailable [phone] Miguel Angel Ohara MD Primary Care Provider [phone] Encounter Details Date Type Department Care Team (Latest Contact Info) Description 02/26/2025 7:14 AM EDT - 02/26/2025 11:59 PM EDT Hospital Encounter [facility] Referral Lab 1 [place] [phone] Dioni Alvarez MD [address] [address] Discharge Disposition: Home or Self Care Social History Tobacco Use Types Packs/Day Years Used Date Smoking Tobacco: Never Smokeless Tobacco: Never Alcohol Use Standard Drinks/Week Comments Never 0 (1 standard drink = 0.6 oz pur e alcohol) [facility] Utilities Answer Date Recorded In the past 12 months has [employer], gas, oil, or water [employer] threatened to shut off services in your [...] Date Recorded PHQ-2 Total Score 2 02/14/2025 [facility] - Occupational Stress Questionnaire Answer Date [...] money to get more. Never true 05/2025 [facility] IP Transportation Answer D ate Recorded In [...] Associated Diagnosis Comments PT / INR Routine 02/26/2025 5:40 AM EDT documented in this encounter Results * (ABNORMAL) PT / INR (02/26/2025 5:40 AM EDT) PT 31.2(H) 10.5 - 13.6 second(s) 02/26/2025 8:27 AM EDT [employer] INR 2.66(H) 0.91 - 1.18 (ratio) 02/26/2025 8:27 AM EDT [employer] Comment: Level of Therapy Indications Target INR Range Standard Dose Treatment and prophylaxis of venous 2.0 - 3.0 thrombosis, pulmonary embolism High Dose High risk patients with mechanical 2.5 - 3.5 heart valves Blood VENOUS BLOOD / Unknown Venipuncture / Unknown 02/26/2025 5:40 AM EDT 02/26/2025 8:16 AM EDT us Dioni Alvarez MD HEMATOLOGY ORDERABLES Final Re sult [employer] [address] [facility] , [place] [address] documented in this encounter Visit Diagnoses Not on filedocumented in this encounter Additional Health Concerns Assessment Noted Time PHQ-9 Depression Total Score: 2 02/15/20 25 12:22 PM EDT PHQ-2 Depression Total Score: 2 02/15/20 25 12:22 PM EDT documented as of this encounter Care Teams Counseling Specialist Relationship Specialty Start Date End Date Miguel Angel Ohara MD [address] [facility] [place] [address] PCP - General Family Medicine 04/13/24 Tali Carmona MD [address] [facility] [address] [place] [address] Consulting Physician Internal Medicine-Nephrology 08/24/20 documented as of this encounter
--- OUTSIDE RECORDS SUMMARY | 2025-02-27 08:32 | XMS_ITS | Encounter Summary ---
Author Organization [place] [address] Care Team Providers Care Employee'S Representative Name Role Phone Tali Carmona MD Unavailable [phone] Miguel Angel Ohara MD Primary Care Provider [phone] Encounter Details Date Type Department Care Team (Latest Contact Info) Description 02/27/2025 8:32 AM EDT - 02/27/2025 11:59 PM EDT Hospital Encounter [facility] Referral Lab 1 [place] [id number] Dioni Alvarez MD [address] [address] Discharge Disposition: Home or Self Care Social History Tobacco Use Types Packs/Day Years Used Date Smoking Tobacco: Never Smokeless Tobacco: Never Alcohol Use Standard Drinks/Week Comments Never 0 (1 standard drink = 0.6 oz pur e alcohol) [facility] Utilities Answer Date Recorded In the past 12 months has [employer], gas, oil, or water [employer] threatened to shut off services in your [...] Date Recorded PHQ-2 Total Score 2 02/14/2025 [facility] - Occupational Stress Questionnaire Answer Date [...] money to get more. Never true 05/2025 [facility] IP Transportation Answer D ate [...] Procedure Name Priority Date/Time Associated Diagnosis Comments IRON+TIBC Routine 02/27/2025 7:42 AM EDT PT / INR Routine 02/27/2025 7:42 AM EDT documented in this encounter Results * (ABNORMAL) IRON+TIBC (02/27/2025 7:42 AM EDT) Iron 30 30 - 160 mcg/dL 02/27/2025 9:15 AM EDT [facility]REF[facility] Transferrin 244 200 - 360 mg/dL 02/27/2025 9:15 AM EDT [facility] [employer] [facility]in Saturation 9(L) 20 - 50 % 02/27/2025 9:15 AM EDT [facility], [facility] TIBC 342 250 - 400 mcg/dL 02/27/2025 9:15 AM EDT [facility] Blood VENOUS BLOOD / Unknown Venipuncture / Unknown 02/27/2025 7:42 AM EDT 02/27/2025 8:33 AM EDT us Dioni Alvarez MD CHEMISTRY ORDERABLES Final Res ult [facility] 1 [facility] , [address] [place] [id number] * (ABNORMAL) PT / INR (02/27/2025 7:42 AM EDT) PT 35.2(H) 10.5 - 13.6 second(s) 02/27/2025 9:26 AM EDT [facility] INR 2.99(H) 0.91 - 1.18 (ratio) 02/27/2025 9:26 AM EDT [facility] Comment: Level of Therapy Indications Target INR Range Standard Dose Treatment and prophylaxis of venous 2.0 - 3.0 thrombosis, pulmonary embolism High Dose High risk patients with mechanical 2.5 - 3.5 heart valves Blood VENOUS BLOOD / Unknown Venipuncture / Unknown 02/27/2025 7:42 AM EDT 02/27/2025 8:33 AM EDT us Dioni Alvarez MD HEMATOLOGY ORDERABLES Final Re sult [facility] 1 [facility] [place], [address] [place] [id number] documented in this encounter Visit Diagnoses Not on filedocumented in this encounter Additional Health Concerns Assessment Noted Time PHQ-9 Depression Total Score: 2 02/15/20 25 12:22 PM EDT PHQ-2 Depression Total Score: 2 02/15/20 25 12:22 PM EDT documented as of this encounter Care Teams Employee'S Representative Relationship Specialty Start Date End Date Miguel Angel Ohara MD [address] [place] [address] PCP - General Family Medicine 04/13/24 Tali Carmona MD [address] [place] [address] Consulting Physician Internal Medicine-Nephrology 08/24/20 documented as of this encounter
--- OUTSIDE RECORDS SUMMARY | 2025-02-28 08:11 | XMS_ITS | Encounter Summary ---
Author Organization [place] [address] Care Team Providers Care Marketing Professor Name Role Phone Tali Carmona MD Unavailable [phone] Miguel Angel Ohara MD Primary Care Provider [phone] Encounter Details Date Type Department Care Team (Latest Contact Info) Description 02/28/2025 8:11 AM EDT - 02/28/2025 11:59 PM EDT Hospital Encounter [facility] Referral Lab 1 [place] [id number] Dioni Alvarez MD [address] [address] Discharge Disposition: Home or Self Care Social History Tobacco Use Types Packs/Day Years Used Date Smoking Tobacco: Never Smokeless Tobacco: Never Alcohol Use Standard Drinks/Week Comments Never 0 (1 standard drink = 0.6 oz pur e alcohol) [facility] Utilities Answer Date Recorded In the past 12 months has [employer], gas, oil, or water [employer] threatened to shut off services in your [...] Date Recorded PHQ-2 Total Score 2 02/14/2025 [facility] - Occupational Stress Questionnaire Answer Date [...] money to get more. Never true 05/2025 [facility] IP Transportation Answer D ate Recorded In [...] Associated Diagnosis Comments PT / INR Routine 02/28/2025 5:04 AM EDT documented in this encounter Results * (ABNORMAL) PT / INR (02/28/2025 5:04 AM EDT) PT 36.0(H) 10.5 - 13.6 second(s) 02/28/2025 8:41 AM EDT [employer] INR 3.06(H) 0.91 - 1.18 (ratio) 02/28/2025 8:41 AM EDT [employer] Comment: Level of Therapy Indications Target INR Range Standard Dose Treatment and prophylaxis of venous 2.0 - 3.0 thrombosis, pulmonary embolism High Dose High risk patients with mechanical 2.5 - 3.5 heart valves Blood VENOUS BLOOD / Unknown Venipuncture / Unknown 02/28/2025 5:04 AM EDT 02/28/2025 8:12 AM EDT us Dioni Alvarez MD HEMATOLOGY ORDERABLES Final Re sult [employer] 1 [facility] , [place] [address] documented in this encounter Visit Diagnoses Not on filedocumented in this encounter Additional Health Concerns Assessment Noted Time PHQ-9 Depression Total Score: 2 02/15/20 25 12:22 PM EDT PHQ-2 Depression Total Score: 2 02/15/20 25 12:22 PM EDT documented as of this encounter Care Teams Marketing Professor Relationship Specialty Start Date End Date Miguel Angel Ohara MD [address] [place] [address] PCP - General Family Medicine 04/13/24 Tali Carmona MD [address] [facility] [address] [place] [address] Consulting Physician Internal Medicine-Nephrology 08/24/20 documented as of this encounter
--- OUTSIDE RECORDS SUMMARY | 2025-03-01 07:25 | XMS_ITS | Encounter Summary ---
Author Organization [place] [address] Care Team Providers Care Ring Facer Name Role Phone Tali Carmona MD Unavailable [phone] Miguel Angel Ohara MD Primary Care Provider [phone] Encounter Details Date Type Department Care Team (Latest Contact Info) Description 03/01/2025 7:25 AM EDT - 03/01/2025 11:59 PM EDT Hospital Encounter [facility] Referral Lab 1 [place] [id number] Tali Carmona MD [address]30 [facility] [address] [place] [address] Discharge Disposition: Home or Self Care Social History Tobacco Use Types Packs/Day Years Used Date Smoking Tobacco: Never Smokeless Tobacco: Never Alcohol Use Standard Drinks/Week Comments Never 0 (1 standard drink = 0.6 oz pur e alcohol) [facility] Utilities Answer Date Recorded In the past 12 months has [employer], gas, oil, or water [email or web address] threatened to shut off services in your [...] Date Recorded PHQ-2 Total Score 2 02/14/2025 [facility] - Occupational Stress Questionnaire Answer [...] true 05/2025 [facility] IP Transportation Answer D ate [...] Associated Diagnosis Comments PT / INR Routine 03/01/2025 5:05 AM EDT BASIC METABOLIC PANEL Routine 03/01/2025 5:05 AM EDT documented in this encounter Results * (ABNORMAL) PT / INR (03/01/2025 5:05 AM EDT) PT 35.3(H) 10.5 - 13.6 second(s) 03/01/2025 8:00 AM EDT [facility] INR 3.00(H) 0.91 - 1.18 (ratio) 03/01/2025 8:00 AM EDT [facility] Comment: Level of Therapy Indications Target INR Range Standard Dose Treatment and prophylaxis of venous 2.0 - 3.0 thrombosis, pulmonary embolism High Dose High risk patients with mechanical 2.5 - 3.5 heart valves Blood VENOUS BLOOD / Unknown Venipuncture / Unknown 03/01/2025 5:05 AM EDT 03/01/2025 7:25 AM EDT us Tali Carmona MD HEMATOLOGY ORDERABLES Final Result [facility] [address], [place] [address] * (ABNORMAL) BASIC METABOLIC PANEL (03/01/2025 5:05 AM EDT) Sodium 135(L) 136 - 145 mmol/L 03/01/2025 8:17 AM EDT [facility] Potassium 4.8 3.5 - 5.0 mmol/L 03/01/2025 8:17 AM EDT [facility] Chloride 100 98 - 107 mmol/L 03/01/2025 8:17 AM EDT [facility] Total CO2 23 22 - 29 mmol/L 03/01/2025 8:17 AM EDT [facility] Anion Gap 12 7 - 16 mmol/L 03/01/2025 8:17 AM EDT [facility] Calcium 8.1(L) 8.6 - 10.4 mg/dL 03/01/2025 8:17 AM EDT [facility] Glucose Lvl 132(H) 70 - 99 mg/dL 03/01/2025 8:17 AM EDT [facility] BUN 20 6 - 20 mg/dL 03/01/2025 8:17 AM EDT [facility] Creatinine 1.24 0.51 - 1.30 mg/dL 03/01/2025 8:17 AM EDT [facility] eGFR (CKD-EPIcr 2020) 55(L) >=60 mL/min/1.7 3 m2 03/01/2025 8:17 AM EDT [facility] Comment:Estimated GFR was ca lculated using the CKD-EPIcr (2020) equation refit without race. The equation is recommended by the National Kidney Foundation - [place] Society of Nephrology Task Force. Blood VENOUS BLOOD / Unknown Venipuncture / Unknown 03/01/2025 5:05 AM EDT 03/01/2025 7:25 AM EDT us Tali Carmona MD CHEMISTRY ORDERABLES Final R esult [facility] 1 [facility] [address], [address] [place], [place] [phone] documented in this encounter Visit Diagnoses Not on filedocumented in this encounter Additional Health Concerns Assessment Noted Time PHQ-9 Depression Total Score: 2 02/15/20 25 12:22 PM EDT PHQ-2 Depression Total Score: 2 02/15/20 25 12:22 PM EDT documented as of this encounter Care Teams Ring Facer Relationship Specialty Start Date End Date Miguel Angel Ohara MD [address] [facility] [address] [place] [address] PCP - General Family Medicine 04/13/24 Tali Carmona MD [address] [place] [address] Consulting Physician Internal Medicine-Nephrology 08/24/20 documented as of this encounter
--- OUTSIDE RECORDS SUMMARY | 2025-03-02 07:56 | XMS_ITS | Encounter Summary ---
Author Organization [place] [address] Care Team Providers Care Radiological Engineer Name Role Phone Tali Carmona MD Unavailable [phone] Miguel Angel Ohara MD Primary Care Provider [phone] Encounter Details Date Type Department Care Team (Latest Contact Info) Description 03/02/2025 7:56 AM EDT - 03/02/2025 11:59 PM EDT Hospital Encounter [facility] Referral Lab 1 [place] [phone] Dioni Alvarez MD [address] [address] Discharge Disposition: Home or Self Care Social History Tobacco Use Types Packs/Day Years Used Date Smoking Tobacco: Never Smokeless Tobacco: Never Alcohol Use Standard Drinks/Week Comments Never 0 (1 standard drink = 0.6 oz pur e alcohol) [facility] Utilities Answer Date Recorded In the past 12 months has [employer], gas, oil, or water [employer] threatened to shut off services in your [...] Recorded PHQ-2 Total Score 2 02/14/2025 [facility] - Occupational Stress Questionnaire Answer [...] money to get more. Never true 05/2025 [facility] IP Transportation Answer D ate Recorded [...] Associated Diagnosis Comments PT / INR Routine 03/02/2025 5:05 AM EDT documented in this encounter Results * (ABNORMAL) PT / INR (03/02/2025 5:05 AM EDT) PT 29.7(H) 10.5 - 13.6 second(s) 03/02/2025 8:30 AM EDT [facility] INR 2.53(H) 0.91 - 1.18 (ratio) 03/02/2025 8:30 AM EDT [facility] Comment: Level of Therapy Indications Target INR Range Standard Dose Treatment and prophylaxis of venous 2.0 - 3.0 thrombosis, pulmonary embolism High Dose High risk patients with mechanical 2.5 - 3.5 heart valves Blood VENOUS BLOOD / Unknown Venipuncture / Unknown 03/02/2025 5:05 AM EDT 03/02/2025 7:57 AM EDT us Dioni Alvarez MD HEMATOLOGY ORDERABLES Final Re sult [facility] 1 [facility] , [place] [address] documented in this encounter Visit Diagnoses Not on filedocumented in this encounter Additional Health Concerns Assessment Noted Time PHQ-9 Depression Total Score: 2 02/15/20 25 12:22 PM EDT PHQ-2 Depression Total Score: 2 02/15/20 25 12:22 PM EDT documented as of this encounter Care Teams Radiological Engineer Relationship Specialty Start Date End Date Miguel Angel Ohara MD [address] [place] [address] PCP - General Family Medicine 04/13/24 Tali Carmona MD [address] [facility] [address] [place] [address] Consulting Physician Internal Medicine-Nephrology 08/24/20 documented as of this encounter
[2025-03-16 16:39] LABS: Hematocrit 37.7 % (37.0-47.0); Hemoglobin 11.4 g/dL (12.2-16.2); Immature Granulocytes % 0.3 %; Mean Corpuscular HGB Conc 30.2 g/dL (31.8-35.4); Mean Corpuscular Hemoglobin 23.0 pg (27.0-31.2); Mean Corpuscular Volume 76.0 fl (81-99); Nucleated Red Blood Cells % 0 %; Platelet Count 336 K/mm3 (142-424); Red Blood Count 4.96 M/mm3 (4.20-5.40); Red Cell Distribution Width-SD 55.5 fL; White Blood Count 9.9 K/mm3 (4.8-10.8)
[2025-03-16 16:46] LABS: INR 1.64 (0.9-1.1); Prothrombin Time 17.5 seconds (10.1-12.5)
[2025-03-16 18:30] LABS: Alanine Aminotransferase 21 U/L (12-78); Albumin Level 3.7 g/dl (3.5-5.0); Albumin/Globulin Ratio 1.1 (1.1-1.8); Alkaline Phosphatase 142 U/L (38-126); Anion Gap 11.5 mEq/L (5-15); Aspartate Amino Transferase 21 U/L (14-36); Bilirubin,Total 1.3 mg/dl (0.2-1.3); Blood Urea Nitrogen 13 mg/dl (7-17); Calcium 8.1 mg/dl (8.4-10.2); Carbon Dioxide 25 mmol/L (22.0-30.0); Chloride 105 mmol/L (98-107); Creatinine,Serum 1.00 mg/dl (0.52-1.04); Estimated Glomerular Filt Rate 60 ml/min (>60); GFR (African American) 73 ML/MIN (>60); Globulin 3.3 g/dL (1.3-3.2); Glucose 183 mg/dl (74-100); Potassium 4.5 mmoL/L (3.5-5.1); Sodium 137 mmol/L (136-145); Total Protein,Serum 7.0 g/dl (6.3-8.2)
[2025-03-16 18:43] LABS: Free T4 (Free Thyroxine) 1.79 ng/dl (0.78-2.19)
[2025-03-16 18:49] LABS: 25-OH Vitamin D, Total < 12.8 ng/mL (30-100)
[2025-03-16 18:56] LABS: Hemoglobin A1C 7.2 % (4.0-6.0)
[2025-03-16 18:59] LABS: Thyroid Stimulating Hormone 2.74 uIU/mL (0.465-4.68)
--- OUTSIDE RECORDS SUMMARY | 2025-03-17 10:23 | XMS_ITS | Clinical Summary ---
Author Organization [facility] Phone Care Team Providers Care Land Clearer Name Role Phone Kiran Guzman MD [facility] [phone] Conditions or Problems Problem Name Problem Code Onset Date Status Entry Date Provider Comment Standard Description Annotate HERNIATED LUMBAR DISC 080439456 (SNOMED CT) 07/13 Active 07/13 Kiran Guzman MD Prolapsed lumbar intervertebral disc Take Note of DVT I80.209 (ICD-10-CM) 07/13 Active 07/13 Kiran Guzman MD Phlebitis and thrombophlebitis of unspecified deep vessels of unspecified lower extremity Take Note of NUMBNESS 60982861 (SNOMED CT) 07/13 Active 07/13 Kiran Guzman MD Numbness Take Note of DIFFICULTY IN WALKING 993641888 (SNOMED CT) 07/13 Active 07/13 Kiran Guzman MD Walking disability Take Note of PAIN IN JOINT, MULTIPLE SITES 98791668 (SNOMED CT) 07/13 Active 07/13 Kiran Guzman MD Pain of multiple joints Take Note of SOB 786.09 (ICD-9-CM) 07/13 Active 07/13 Kiran Guzman MD Other dyspnea and respiratory abnormality Take Note of CHEST PAIN 93796896 (SNOMED CT) 07/13 Active 07/13 Kiran Guzman MD Chest pain Take Note of ABNORMAL FINDINGS, ELEVATED BP W/O HTN 217274375 (SNOMED CT) 07/13 Active 07/13 Kiran Guzman MD Elevated blood-pressure reading without diagnosis of hypertension Take Note of DIZZINESS 293801080 (SNOMED CT) 07/13 Active 07/13 Kiran Guzman MD Dizziness Take Note of HEADACHE 14851227 (SNOMED CT) 07/13 Active 07/13 Kiran Guzman MD Headache Take Note of WEIGHT GAIN, ABNORMAL 356478986 (SNOMED CT) 07/13 Active 07/13 Kiran Guzman MD Abnormal weight gain Medications Medication Instructions Start Date Stop Date Generic Name NDC Provider COUMADIN 1 MG ORAL TABLET Non-Graves 07/13 WARFARIN SODIUM [id number] Kiran Guzman MD HYDROCHLOROTHIAZIDE 12.5 MG CAPS Non-Graves 07/13 HYDROCHLOROTHIAZIDE 24973476455 Kiran Guzman MD LISINOPRIL 10 MG TABS -Graves 07/13 LISINOPRIL 91660569714 Kiran Guzman MD WELLBUTRIN 100 MG ORAL TABLET -Graves 07/13 BUPROPION HCL [id number] Kiran Guzman MD PAXIL 20 MG TABS -Graves 07/13 PAROXETINE HCL [id number] Kiran Guzman MD VICODIN ES 7.5-750 MG TABS -Graves 07/13 HYDROCODONE-ACETAMIN OPHEN 98802055061 Kiran Guzman MD DIAZEPAM POWD -Graves 07/13 DIAZEPAM [id number] Kiran Guzman MD NEURONTIN 100 MG CAPS -Graves 07/13 GABAPENTIN [id number] Kiran Guzman MD DEXAMETHASONE 0.5 MG/5ML ELIX -Graves 07/13 DEXAMETHASONE 66907488685 Kiran Guzman MD AMITRIPTYLINE HCL 10 MG TABS -Graves 07/13 AMITRIPTYLINE HCL [id number] Kiran Guzman MD Medications Administered No information available. Allergies, Adverse Reactions, Alerts Observed no known allergies at Results Date Name Value Unit Range Flag Description Lab Report: BASIC MET PANEL, CBC with Auto Diff, % EOS AUTO 0.2 E3/CMM % 0.1-0.5 Eosinop hils/100 leukocytes in Blood by Automated count MONOCYTE % 0.7 E3/CMM % 0.0-1.3 Monocyt es/100 leukocytes in Blood by Automated count MPV 8.5 UM3 fL 7.0-12.0 Platelet ash n volume [Entitic volume] in Blood by Santiago RDW 17.7 % 11.5-14.5 H Erythrocyte distribution width [Ratio] by Automated count MCHC RBC 34.0 g/dL 32.5-35.5 mean corpu scular hemoglobin concentration, RBC MCH 26.8 pg 27.0-33.2 L MCH [Entiti c mass] by Automated count MCV 78.7 UM3 fL 80.0-95.8 L MCV [Entit ic volume] by Automated count HCT 42.3 % 35.0-45.9 Hematocrit [Volume Fraction] of Blood by Automated count CREATININE 0.7 mg/dL 0.6-1.1 Creatinine [Mass/volume] in Serum or Plasma GLUCOSE SER 84 mg/dL 72-112 Glucose [ Mass/volume] in Serum or Plasma CL SERUM 101 meq/L 98-108 Chloride [Moles/volume] in Serum or Plasma K SERUM 4.0 meq/L 3.5-5.0 Potassium [Moles/volume] in Serum or Plasma Plan of Care No information available. Procedures No information available. Vital Signs Date Name Value Unit Description Height 67 [in_us] height E&M Weight Measured 350 [lb_av] weight E& M Weight Measured 350 [lb_av] weight E& M BP Diastolic 80 mm[Hg] blood pressu re, diastolic BP Systolic 130 mm[Hg] blood pressur e, systolic Immunizations No information available. Advance Directives No information available.
--- OUTSIDE RECORDS SUMMARY | 2025-03-17 10:24 | XMS_ITS | Encounter Summary ---
Author [place] [address] Care Team Providers Care Printing Machine Operator Tape Rules Name Role Phone Tali Carmona MD Unavailable [phone] Miguel Angel Ohara MD Primary Care Provider [phone] Encounter Details Date Type Department Care Team (Latest Contact Info) Description 02/24/2025 External Contact SEP Pulmonology [facility] 651 [facility] [address] [place] [address] Nicola Figueroa MD [address] [address] Chronic respiratory failure with hypoxia (HCC) (Primary Dx); Class 3 severe obesity with body mass index (BMI) greater than or equal to 70 in adult; Type 2 diabetes mellitus with diabetic polyneuropathy, without long-term current use of insulin (HCC); AURELIA (obstructive sleep apnea) Social History Tobacco Use Types Packs/Day Years Used Date Smoking Tobacco: Never Smokeless Tobacco: Never Alcohol Use Standard Drinks/Week Comments Never 0 (1 standard drink = 0.6 oz pur e alcohol) [facility] Utilities Answer Date Recorded In the past 12 months has [employer], gas, oil, or water [employer] threatened to shut off services in your [...] Date Recorded PHQ-2 Total Score 2 02/14/2025 [facility] - Occupational Stress Questionnaire Answer [...] money to get more. Never true 05/2025 [facility] IP Transportation Answer D ate Recorded In [...] Assessment Author No 01/06/2025 12:07 PM EDElysia Ledesma, YENNY * Is the person blind or [...] Elysia Stacy RN documented in this encounter Progress Notes * Sangeeta Dhillon RMA - 02/24/2025 12:13 PM EDT Pt was seen at [facility] medical records in their system documented in this encounter Plan of Treatment Not on file documented as of this encounter Visit Diagnoses Diagnosis Chronic respiratory failure with hypoxia (HCC)- Primary Chronic respiratory failure Class 3 severe obesity with body mass index (BMI) greater than or equal to 70 in adult Type 2 diabetes mellitus with diabetic polyneuropathy, without long-term current use of insulin (HCC) AURELIA (obstructive sleep apnea) Obstructive sleep apnea (adult) (pediatric) documented in this encounter Additional Health Concerns Assessment Noted Time PHQ-9 Depression Total Score: 2 02/15/20 12:22 PM EDT PHQ-2 Depression Total Score: 2 02/15/20 12:22 PM EDT documented as of this encounter Care Teams Printing Machine Operator Tape Rules Relationship Specialty Start Date End Date Miguel Angel Ohara MD [address] [place] [address] PCP - General Family Medicine 04/13/24 Tali Carmona MD [address] [place] [address] Consulting Physician Internal Medicine-Nephrology 08/24/20 documented as of this encounter
--- OUTSIDE RECORDS SUMMARY | 2025-03-17 10:24 | XMS_ITS | Encounter Summary ---
Author [place] [address] Care Team Providers Care Heel Caser Name Role Phone Tali Carmona MD Unavailable Miguel Angel Ohara MD Primary Care Provider [phone] Encounter Details Date Type Department Care Team (Latest Contact Info) Description 02/21/2025 External Contact SEP Pulmonology [facility] 651 [facility] 19 [place] [address] Nicola Figueroa MD [address] [address] Chronic respiratory failure with hypoxia (HCC) (Primary Dx); REYES (dyspnea on exertion); Type 2 diabetes mellitus with diabetic polyneuropathy, without long-term current use of insulin (HCC); AURELIA (obstructive sleep apnea); Restless leg syndrome; Class 3 severe obesity with body mass index (BMI) greater than or equal to 70 in adult Social History Tobacco Use Types Packs/Day Years Used Date Smoking Tobacco: Never Smokeless Tobacco: Never Alcohol Use Standard Drinks/Week Comments Never 0 (1 standard drink = 0.6 oz pur e alcohol) [facility] Utilities Answer Date Recorded In the past 12 months has [employer], gas, oil, or water [email or web address] threatened to shut off services in your [...] 02/14/2025 [facility] - Occupational [...] money to get more. Never true 05/2025 [facility] IP Transportation Answer D ate Recorded In [...] Progress Notes * Sangeeta Dhillon RMA - 02/21/2025 10:55 AM EDT Pt was seen at [facility] medical records in their system documented in this encounter Plan of Treatment Not on file documented as of this encounter Visit Diagnoses Diagnosis Chronic respiratory failure with hypoxia (HCC)- Primary Chronic respiratory failure REYES (dyspnea on exertion) Other dyspnea and respiratory abnormality Type 2 diabetes mellitus with diabetic polyneuropathy, without long-term current use of insulin (HCC) AURELIA (obstructive sleep apnea) Obstructive sleep apnea (adult) (pediatric) Restless leg syndrome Restless legs syndrome (RLS) Class 3 severe obesity with body mass index (BMI) greater than or equal to 70 in adult documented in this encounter Additional Health Concerns Assessment Noted Time PHQ-9 Depression Total Score: 2 02/15/20 25 12:22 PM EDT PHQ-2 Depression Total Score: 2 02/15/20 25 12:22 PM EDT documented as of this encounter Care Teams Heel Caser Relationship Specialty Start Date End Date Miguel Angel Ohara MD [address] [place] [place] [address] PCP - General Family Medicine 04/13/24 Tali Carmona MD [address] [address] Consulting Physician Internal Medicine-Nephrology 08/24/20 documented as of this encounter
--- OUTSIDE RECORDS SUMMARY | 2025-03-17 10:24 | XMS_ITS | Encounter Summary ---
Author Organization [place] [address] Care Team Providers Care Lehr Loader Name Role Phone Tali Carmona MD Unavailable [phone] Miguel Angel Ohara MD Primary Care Provider [phone] Encounter Details Date Type Department Care Team (Latest Contact Info) Description 02/22/2025 External Contact SEP Pulmonology [facility] [address] [address] Nicola Figueroa MD [address] [address] Chronic respiratory failure with hypoxia (HCC) (Primary Dx); AURELIA (obstructive sleep apnea); SOB (shortness of breath); REYES (dyspnea on exertion) Social History Tobacco Use Types Packs/Day Years Used Date Smoking Tobacco: Never Smokeless Tobacco: Never Alcohol Use Standard Drinks/Week Comments Never 0 (1 standard drink = 0.6 oz pur e alcohol) [facility] Utilities Answer Date Recorded In the past 12 months has [employer] gas, oil, or water [employer] threatened to shut off services in your [...] Date Recorded PHQ-2 Total Score 2 02/14/2025 [facility] of Occupat ional Health - Occupational Stress [...] money to get more. Never true 05/2025 [facility] IP Transportation Answer D ate Recorded [...] Assessment Author Yes 01/06/2025 12:07 PM EDT Elyisa Stacy RN documented as of this encounter Mental Status * Because of a physical, mental or emotional condition, does this person have serious difficulty concentrating, remembering or making decisions? Answer Entry Date Author No 01/06/2025 12:07 PM EDT Elysia Stacy RN documented in this encounter Progress Notes * Sangeeta Dhillon RMA - 02/22/2025 8:55 AM EDT Pt was seen at [facility] medical records in their system documented in this encounter Plan of Treatment Not on file documented as of this encounter Visit Diagnoses Diagnosis Chronic respiratory failure with hypoxia (HCC)- Primary Chronic respiratory failure AURELIA (obstructive sleep apnea) Obstructive sleep apnea (adult) (pediatric) SOB (shortness of breath) Shortness of breath REYES (dyspnea on exertion) Other dyspnea and respiratory abnormality documented in this encounter Additional Health Concerns Assessment Noted Time PHQ-9 Depression Total Score: 2 02/15/20 12:22 PM EDT PHQ-2 Depression Total Score: 2 02/15/20 12:22 PM EDT documented as of this encounter Care Teams Lehr Loader Relationship Specialty Start Date End Date Miguel Angel Ohara MD [address] [facility] [address] [place] [address] PCP - General Family Medicine 04/13/24 Tali Carmona MD [address] [place] [address] Consulting Physician Internal Medicine-Nephrology 08/24/20 documented as of this encounter
--- OUTSIDE RECORDS SUMMARY | 2025-03-17 10:24 | XMS_ITS | Encounter Summary ---
Author Organization [place] [address] Care Team Providers Care Professor Of Art Name Role Phone Tali Carmona MD Unavailable [phone] Miguel Angel Ohara MD Primary Care Provider [phone] Encounter Details Date Type Department Care Team (Latest Contact Info) Description 02/28/2025 External Contact SEP Pulmonology [facility] 651 [facility] [address] [place] [address] Nicola Figueroa MD [address] [address] Chronic respiratory failure with hypoxia (HCC) (Primary Dx) Social History Tobacco Use Types Packs/Day Years Used Date Smoking Tobacco: Never Smokeless Tobacco: Never Alcohol Use Standard Drinks/Week Comments Never 0 (1 standard drink = 0.6 oz pur e alcohol) [facility] Utilities Answer Date Recorded In the past 12 months has [employer], gas, oil, or water [employer] threatened to shut off services in your [...] Date Recorded PHQ-2 Total Score 2 02/14/2025 [facility] of Occupat ional Health - [...] money to get more. Never true 05/2025 [facility] IP Transportation Answer D ate Recorded In [...] with hypoxia (HCC)- Primary Chronic respiratory failure documented in this encounter Additional Health Concerns Assessment Noted Time PHQ-9 Depression Total Score: 2 02/15/20 25 12:22 PM EDT PHQ-2 Depression Total Score: 2 02/15/20 25 12:22 PM EDT documented as of this encounter Care Teams Professor Of Art Relationship Specialty Start Date End Date Miguel Angel Ohara MD [address] [facility] [place] [address] PCP - General Family Medicine 04/13/24 Tali Carmona MD [address] [facility] [address] [place] [address] Consulting Physician Internal Medicine-Nephrology 08/24/20 documented as of this encounter
--- OUTSIDE RECORDS SUMMARY | 2025-03-17 10:24 | XMS_ITS | Encounter Summary ---
Author Organization [place] [address] Care Team Providers Care Web Assistant Name Role Phone Tali Carmona MD Unavailable [phone] Miguel Angel Ohara MD Primary Care Provider [phone] Encounter Details Date Type Department Care Team (Latest Contact Info) Description 02/23/2025 External Contact SEP Pulmonology [facility] [address] [address] Dioni Alvarez MD [address] [address] Chronic respiratory failure with hypoxia (HCC) (Primary Dx); Morbid obesity (HCC) Social History Tobacco Use Types Packs/Day Years Used Date Smoking Tobacco: Never Smokeless Tobacco: Never Alcohol Use Standard Drinks/Week Comments Never 0 (1 standard drink = 0.6 oz pur e alcohol) [facility] Utilities Answer Date Recorded In the past 12 months has [employer], gas, oil, or water [employer] threatened to shut off services in your [...] Date Recorded PHQ-2 Total Score 2 02/14/2025 [facility] - Occupational Stress Questionnaire Answer [...] money to get more. Never true 05/2025 [facility] IP Transportation Answer D ate [...] Progress Notes * Sangeeta Dhillon RMA - 02/23/2025 11:59 PM EDT Pt was seen at [facility] medical records in their system documented in this encounter Plan of Treatment Not on file documented as of this encounter Visit Diagnoses Diagnosis Chronic respiratory failure with hypoxia (HCC)- Primary Chronic respiratory failure Morbid obesity (HCC) Morbid obesity documented in this encounter Additional Health Concerns Assessment Noted Time PHQ-9 Depression Total Score: 2 02/15/20 25 12:22 PM EDT PHQ-2 Depression Total Score: 2 02/15/20 25 12:22 PM EDT documented as of this encounter Care Teams Web Assistant Relationship Specialty Start Date End Date Miguel Angel Ohara MD [address] [facility] [address] [place] [address] PCP - General Family Medicine 04/13/24 Tali Carmona MD [address] [facility] [address] [place] [address] Consulting Physician Internal Medicine-Nephrology 08/24/20 documented as of this encounter
--- OUTSIDE RECORDS SUMMARY | 2025-03-17 10:24 | XMS_ITS | Encounter Summary ---
Author Organization [place] [address] Care Team Providers Care Critical Care Transport Nurse Name Role Phone Tali Carmona MD Unavailable Miguel Angel Ohara MD Primary Care Provider [phone] Encounter Details Date Type Department Care Team (Latest Contact Info) Description 03/01/2025 External Contact SEP Pulmonology [facility] 651 [facility] [address] [place] [address] Nicola Figueroa MD [address] [address] Chronic respiratory failure with hypoxia (HCC) (Primary Dx) Social History Tobacco Use Types Packs/Day Years Used Date Smoking Tobacco: Never Smokeless Tobacco: Never Alcohol Use Standard Drinks/Week Comments Never 0 (1 standard drink = 0.6 oz pur e alcohol) [facility] Utilities Answer Date Recorded In the past 12 months has [employer], gas, oil, or water [employer] threatened to shut off services in your [...] Date Recorded PHQ-2 Total Score 2 02/14/2025 [facility] of Occupat ional Health - Occupational [...] money to get more. Never true 05/2025 [facility] IP Transportation Answer D ate Recorded [...] documented as of this encounter Care Teams Critical Care Transport Nurse Relationship Specialty Start Date End Date Miguel Angel Ohara MD [address] [facility] [place] [address] PCP - General Family Medicine 04/13/24 Tali Carmona MD [address] [facility] [place] [address] Consulting Physician Internal Medicine-Nephrology 08/24/20 documented as of this encounter
--- OUTSIDE RECORDS SUMMARY | 2025-03-17 10:24 | XMS_ITS | Encounter Summary ---
Author Organization [place] [address] Care Team Providers Care Linen Aide Name Role Phone Tali Carmona MD Unavailable [phone] Miguel Angel Ohara MD Primary Care Provider [phone] Encounter Details Date Type Department Care Team (Latest Contact Info) Description 03/02/2025 External Contact SEP Pulmonology [facility] [address] [address] Dioni Alvarez MD [address] [address] Chronic respiratory failure with hypoxia (HCC) (Primary Dx); Morbid obesity (HCC); Chronic hypoxemic respiratory failure (HCC) Social History Tobacco Use Types Packs/Day Years Used Date Smoking Tobacco: Never Smokeless Tobacco: Never Alcohol Use Standard Drinks/Week Comments Never 0 (1 standard drink = 0.6 oz pur e alcohol) [facility] Utilities Answer Date Recorded In the past 12 months has [employer], gas, oil, or water [employer] threatened to shut off services in your [...] Total Score 2 02/14/2025 [facility] - Occupational Stress Questionnaire Answer [...] more. Never true 05/2025 [facility] IP Transportation Answer D ate Recorded [...] of Assessment Author Yes 01/06/2025 12:07 PM lEysia Nelson, YENNY * Because of a physical, [...] Elysia Stacy RN documented in this encounter Miscellaneous Notes * Patient Instructions - María Storey RMA - 03/02/2025 11:59 PM EDT Pt was seen at [facility] medical records in their system documented in this encounter Plan of Treatment Not on file documented as of this encounter Visit Diagnoses Diagnosis Chronic respiratory failure with hypoxia (HCC)- Primary Chronic respiratory failure Morbid obesity (HCC) Morbid obesity Chronic hypoxemic respiratory failure (HCC) Chronic respiratory failure documented in this encounter Additional Health Concerns Assessment Noted Time PHQ-9 Depression Total Score: 2 02/15/20 25 12:22 PM EDT PHQ-2 Depression Total Score: 2 02/15/20 12:22 PM EDT documented as of this encounter Care Teams Linen Aide Relationship Specialty Start Date End Date Miguel Angel Ohara MD [address] [facility] [place] [address] PCP - General Family Medicine 04/13/24 Tali Carmona MD [address] [facility] [address] [place] [address] Consulting Physician Internal Medicine-Nephrology 08/24/20 documented as of this encounter
--- OUTSIDE RECORDS SUMMARY | 2025-03-17 10:24 | XMS_ITS | Encounter Summary ---
Author Organization [place] [address] Care Team Providers Care Shoe Coverer Name Role Phone Tali Carmona MD Unavailable [phone] Miguel Angel Ohara MD Primary Care Provider [phone] Encounter Details Date Type Department Care Team (Latest Contact Info) Description 02/20/2025 External Contact SEP Pulmonology [facility] [address] [address] Dioni Alvarez MD [address] [address] Chronic respiratory failure with hypoxia (HCC) (Primary Dx); Morbid obesity (HCC) Social History Tobacco Use Types Packs/Day Years Used Date Smoking Tobacco: Never Smokeless Tobacco: Never Alcohol Use Standard Drinks/Week Comments Never 0 (1 standard drink = 0.6 oz pur e alcohol) [facility] Utilities Answer Date Recorded In the past 12 months has [employer], gas, oil, or water [employer] threatened to shut off services in your [...] Date Recorded PHQ-2 Total Score 2 02/14/2025 [facility] - Occupational Stress Questionnaire Answer [...] money to get more. Never true 05/2025 [facility] IP Transportation Answer D [...] Progress Notes * Sangeeta Dhillon RMA - 02/20/2025 11:59 PM EDT Pt was seen at [facility] medical records in their system documented [...] documented as of this encounter Care Teams Shoe Coverer Relationship Specialty Start Date End Date Miguel Angel Ohara MD [address]30 [facility] [address] [place] [address] PCP - General Family Medicine 04/13/24 Tali Carmona MD [address] [facility] [address] [place] [address] Consulting Physician Internal Medicine-Nephrology 08/24/20 documented as of this encounter
--- OUTSIDE RECORDS SUMMARY | 2025-03-17 10:24 | XMS_ITS | Encounter Summary ---
Author [place] [address] Care Team Providers Care Fur Sewer Name Role Phone Tali Carmona MD Unavailable Miguel Angel Ohara MD Primary Care Provider Encounter Details Date Type Department Care Team (Latest Contact Info) Description 02/27/2025 External Contact SEP Pulmonology [facility] [address] [phone] Dioni Alvarez MD [address] [phone] Chronic respiratory failure with hypoxia (HCC) (Primary Dx); Morbid obesity (HCC); Chronic hypoxemic respiratory failure (HCC) Social History Tobacco Use Types Packs/Day Years Used Date Smoking Tobacco: Never Smokeless Tobacco: Never Alcohol Use Standard Drinks/Week Comments Never 0 (1 standard drink = 0.6 oz pur e alcohol) [facility] Utilities Answer Date Recorded In the past 12 months has [employer], gas, oil, or water [employer] threatened to shut off services in your [...] [facility] - Occupational Stress Questionnaire Answer Date [...] to get more. Never true 05/2025 [facility] IP Transportation Answer D ate Recorded [...] Patient Instructions - María Storey RMA - 02/27/2025 11:59 PM EDT Pt was seen at [facility] medical records in their system documented in [...] documented as of this encounter Care Teams Fur Sewer Relationship Specialty Start Date End Date Miguel Angel Ohara MD [address] [facility] [address] [place] [address] PCP - General Family Medicine 04/13/24 Tali Carmona MD [address] [facility] [address] [place] [address] Consulting Physician Internal Medicine-Nephrology 08/24/20 documented as of this encounter
--- OUTSIDE RECORDS SUMMARY | 2025-03-17 10:24 | XMS_ITS | Encounter Summary ---
Author Organization [place] [address] Care Team Providers Care Laser Cutter Name Role Phone Tali Carmona MD Unavailable [phone] Miguel Angel Ohara MD Primary Care Provider [phone] Encounter Details Date Type Department Care Team (Latest Contact Info) Description 02/19/2025 External Contact SEP Pulmonology [facility] [address] [phone] Dioni Alvarez MD [address] [phone] Chronic hypoxemic respiratory failure (HCC) (Primary Dx); Morbid obesity (HCC); Chronic respiratory failure with hypoxia (HCC) Social History Tobacco Use Types Packs/Day Years Used Date Smoking Tobacco: Never Smokeless Tobacco: Never Alcohol Use Standard Drinks/Week Comments Never 0 (1 standard drink = 0.6 oz pur e alcohol) [facility] Utilities Answer Date Recorded In the past 12 months has [employer], gas, oil, or water [employer] threatened to shut off services in [...] Date Recorded PHQ-2 Total Score 2 02/14/2025 [facility] - Occupational Stress Questionnaire Answer [...] money to get more. Never true 05/2025 [facility] IP Transportation Answer D ate Recorded [...] Progress Notes * Sangeeta Dhillon RMA - 02/19/2025 11:59 PM EDT [facility] documented in this encounter Plan of Treatment Not on file documented as of this encounter Visit Diagnoses Diagnosis Chronic hypoxemic respiratory failure (HCC)- Primary Chronic respiratory failure Morbid obesity (HCC) Morbid obesity Chronic respiratory failure with hypoxia (HCC) Chronic respiratory failure documented in this encounter Additional Health Concerns Assessment Noted Time PHQ-9 Depression Total Score: 2 02/15/20 12:22 PM EDT PHQ-2 Depression Total Score: 2 02/15/20 12:22 PM EDT documented as of this encounter Care Teams Laser Cutter Relationship Specialty Start Date End Date Miguel Angel Ohara MD [address] [place] [address] PCP - General Family Medicine 04/13/24 Tali Carmona MD [address] [place] [address] Consulting Physician Internal Medicine-Nephrology 08/24/20 documented as of this encounter
--- OUTSIDE RECORDS SUMMARY | 2025-03-17 10:24 | XMS_ITS | Encounter Summary ---
Author Organization [place] [address] Care Team Providers Care Solder Technician Name Role Phone Tali Carmona MD Unavailable [phone] Miguel Angel Ohara MD Primary Care Provider [phone] Encounter Details Date Type Department Care Team (Latest Contact Info) Description 02/25/2025 External Contact SEP Pulmonology [facility] [address] [phone] Dioni Alvarez MD [address] [address] Chronic respiratory failure with hypoxia (HCC) (Primary Dx); Morbid obesity (HCC); REYES (dyspnea on exertion) Social History Tobacco Use Types Packs/Day Years Used Date Smoking Tobacco: Never Smokeless Tobacco: Never Alcohol Use Standard Drinks/Week Comments Never 0 (1 standard drink = 0.6 oz pur e alcohol) [facility] Utilities Answer Date Recorded In the past 12 months has [employer], gas, oil, or water [employer] threatened to shut off services in your [...] Recorded PHQ-2 Total Score 2 02/14/2025 [facility] - Occupational Stress Questionnaire Answer [...] Never true 05/2025 [facility] IP [...] Patient Instructions - María Storey RMA - 02/25/2025 11:59 PM EDT Pt was seen at [facility] medical records in their system documented in this encounter Plan of Treatment Not on file documented as of this encounter Visit Diagnoses Diagnosis Chronic respiratory failure with hypoxia (HCC)- Primary Chronic respiratory failure Morbid obesity (HCC) Morbid obesity REYES (dyspnea on exertion) Other dyspnea and respiratory abnormality documented in this encounter Additional Health Concerns Assessment Noted Time PHQ-9 Depression Total Score: 2 02/15/20 25 12:22 PM EDT PHQ-2 Depression Total Score: 2 02/15/20 25 12:22 PM EDT documented as of this encounter Care Teams Solder Technician Relationship Specialty Start Date End Date Miguel Angel Ohara MD [address] [facility] [address] [place] [address] PCP - General Family Medicine 04/13/24 Tali Carmona MD [address] [facility] [address] [place] [address] Consulting Physician Internal Medicine-Nephrology 08/24/20 documented as of this encounter
--- OUTSIDE RECORDS SUMMARY | 2025-03-17 10:24 | XMS_ITS | Encounter Summary ---
Author Organization [place] [address] Care Team Providers Care Engineering Program Analyst Name Role Phone Tali Carmona MD Unavailable [phone] Miguel Angel Oahra MD Primary Care Provider Encounter Details Date Type Department Care Team (Latest Contact Info) Description 02/26/2025 External Contact SEP Pulmonology [facility] 651 [facility] [address] [place] [address] Nicola Figueroa MD [address] [phone] Chronic respiratory failure with hypoxia (HCC) (Primary Dx); GRAZYNA (acute kidney injury); CKD (chronic kidney disease) stage 2, GFR 60-89 ml/min; AURELIA (obstructive sleep apnea); Type 2 diabetes mellitus with diabetic polyneuropathy, without long-term current use of insulin (HCC) Social History Tobacco Use Types Packs/Day Years Used Date Smoking Tobacco: Never Smokeless Tobacco: Never Alcohol Use Standard Drinks/Week Comments Never 0 (1 standard drink = 0.6 oz pur e alcohol) [facility] Utilities Answer Date Recorded In the past 12 months has [employer], gas, oil, or water [employer] threatened to shut off services in your [...] Date Recorded PHQ-2 Total Score 2 02/14/2025 [facility] of Occupat ional Health - Occupational Stress [...] more. Never true 05/2025 [facility] IP [...] Progress Notes * Sangeeta Dhillon RMA - 02/26/2025 11:59 PM EDT Pt was seen at [facility] medical records in their system documented in this encounter Plan of Treatment Not on file documented as of this encounter Visit Diagnoses Diagnosis Chronic respiratory failure with hypoxia (HCC)- Primary Chronic respiratory failure GRAZYNA (acute kidney injury) Acute kidney failure, unspecified CKD (chronic kidney disease) stage 2, GFR 60-89 ml/min Chronic kidney disease, Stage II (mild) AURELIA (obstructive sleep apnea) Obstructive sleep apnea (adult) (pediatric) Type 2 diabetes mellitus with diabetic polyneuropathy, without long-term current use of insulin (HCC) documented in this encounter Additional Health Concerns Assessment Noted Time PHQ-9 Depression Total Score: 2 02/15/20 12:22 PM EDT PHQ-2 Depression Total Score: 2 02/15/20 25 12:22 PM EDT documented as of this encounter Care Teams Engineering Program Analyst Relationship Specialty Start Date End Date Miguel Angel Ohara MD [address] [place] [address] PCP - General Family Medicine 04/13/24 Tali Carmona MD [address] [place] [address] Consulting Physician Internal Medicine-Nephrology 08/24/20 documented as of this encounter
--- OUTSIDE RECORDS SUMMARY | 2025-03-17 10:25 | XMS_ITS | Encounter Summary ---
Author [place] [address] Care Team Providers Care Bleacher Lard Name Role Phone Tali Carmona MD Unavailable [phone] Miguel Angel Ohara MD Primary Care Provider [phone] Encounter Details Date Type Department Care Team (Late st Contact Info) Description 01/27/2025 Social Work [facility] [address] [facility] [address] [place] [address] Yomaira Medina, PHYSICAL THERAPY NURSE Social History Tobacco Use Types Packs/Day Years Used Date Smoking Tobacco: Never Smokeless Tobacco: Never Alcohol Use Standard Drinks/Week Comments Never 0 (1 standard drink = 0.6 oz pur e alcohol) [facility] Utilities Answer Date Recorded In the past 12 months has e electric, gas, oil, or water company [...] Date Recorded PHQ-2 Total Score 2 01/14/2025 [facility] of Occupat ional Health - Occupational Stress [...] money to get more. Never true 05/2025 [facility] IP Transportation Answer D [...] documented in this encounter Progress Notes * Yomaira Medina MSW - 01/27/2025 8:27 AM EDT 01/27/25 0826 [address] I Police Sergeant Assessment Disease/[place] Site Casing Flusher Assignment FT Mil: All Cancer Patient Reason for Referral f/u from MD regarding Hem appt on 02/18- OK to cancel and for pt to f/u with PCPper pt request Social Work Interventions Care Coordination VM left for pt this AM regarding canceling her appt on 02/18 as requested by pt, as she stated that she sees her PCP for Factor IV Leiden, blood clots and management of coumadin. SW requested that pt return this call to confirm that she received the message- awaiting return call. UPDATE 11:58AM VM received from pt confirming that she is aware and agreeable to 02/18 appt cancellation, as she will follow up with her PCP Yomaira Medina LCSW [facility] Social Work [place] [employer] documented in this encounter Plan of Treatment Not on file documented as of this encounter Visit Diagnoses Not on filedocumented in this encounter Additional Health Concerns Assessment Noted Time PHQ-9 Depression Total Score: 2 01/15/20 3:17 PM EDT PHQ-2 Depression Total Score: 2 01/15/20 3:17 PM EDT documented as of this encounter Care Teams Bleacher Lard Relationship Specialty Start Date End Date Miguel Angel Ohara MD [address] [place] [id number] PCP - General Family Medicine 04/13/24 Tali Carmona MD [address] [place] [address] Consulting Physician Internal Medicine-Nephrology 08/24/20 documented as of this encounter
--- OUTSIDE RECORDS SUMMARY | 2025-03-17 10:25 | XMS_ITS | Encounter Summary ---
Author Organization [facility] [place] [address] Care Team Providers Care Slasher Tender Name Role Phone Tali Carmona MD Unavailable [phone] Miguel Angel Ohara MD Primary Care Provider [phone] Encounter Details Date Type Department Care Team (Latest Contact Info) Description 02/18/2025 Travel Social History Tobacco Use Types Packs/Day Years Used Date Smoking Tobacco: Never Smokeless Tobacco: Never Alcohol Use Standard Drinks/Week Comments Never 0 (1 standard drink = 0.6 oz pur e alcohol) [facility] Utilities Answer Date Recorded In the past 12 months has [employer] electric, gas, oil, or water company threatened [...] Date Recorded PHQ-2 Total Score 2 02/14/2025 [facility] of Occupat ional Health - Occupational Stress [...] money to get more. Never true 05/2025 [facility] IP Transportation Answer D ate [...] Elysia Nelson RN documented in this encounter Plan of Treatment Not on file documented as of this encounter Visit Diagnoses Not on filedocumented in this encounter Additional Health Concerns Assessment Noted Time PHQ-9 Depression Total Score: 2 02/15/20 25 12:22 PM EDT PHQ-2 Depression Total Score: 2 02/15/20 25 12:22 PM EDT documented as of this encounter Care Teams Slasher Tender Relationship Specialty Start Date End Date Miguel Angel Ohara MD [address] [facility] [address] [place] [phone] PCP - General Family Medicine 04/13/24 Tali Carmona MD [address] [place] [phone] Consulting Physician Internal Medicine-Nephrology 08/24/20 documented as of this encounter
--- OUTSIDE RECORDS SUMMARY | 2025-03-17 10:25 | XMS_ITS | Clinical Summary ---
Author Organization [facility] Address [address] [place] [address] Care Team Providers Care Correctional Sergeant Name Role Phone Xavier Cintron MD Primary Care Provider Social History Tobacco Use Types Packs/Day Years Used Date Smoking Tobacco: Never Assessed Abuse Screen Answer Date Recorded Unsafe at Home or Work/School Not on file Feels Threatened by Someone? Not on file 05/2023 Does Anyone Keep You from Co ntacting Others or Doint Things Outside the Home? Not on file 04/16/2023 Physical Sign of Abuse Present Not on file 1 Housing Stability Answer Date Recorded Current Living Arrangements Not on file 04/06 Potentially Unsafe Housing Conditions Not on antonino e 04/16/2023 Family and Community Support Answer Kirby e Recorded Help with Day-to-Day Activities Not on file 04/16/2023 Lonely or Isolated Not on file 04/16/2023 Employment Answer Date Recorded Do you want help finding or keeping work or a jimmy b? Not on file 04/16/2023 Disabilities Answer Date Recorded Concentrating, Remembering, or Making Decisions Difficulty Not on file 04/16/2023 Doing Errands Independently Difficulty Not on fi le 04/16/2023 Education Answer Date Recorded Help with school or training? Not on file Preferred Language Not on file 04/16/2023 Comments Unknown Sex and Gender Information Value Date Recorded Sex Assigned at Not on file Legal Sex Female 1:13 PM EST Gender Identity Not on file Sexual Orientation Not on file Last Filed Vital Signs Vital Sign Reading Time Taken Comments Blood Pressure 111/73 09/29/2015 10:25 AM EDT Pulse 99 09/29/2015 10:25 AM EDT Temperature - - Respiratory Rate - - Oxygen Saturation 98% 09/29/2015 10:25 AM EDT Inhaled Oxygen Concentration - - Weight 216 kg (475 lb 15.9 oz) 09/29/2015 10:25 AM EDT Height 170.2 cm (5' 7 ) 09/29/2015 10:25 AM EDT Body Mass Index 74.55 09/29/2015 10:25 AM EDT Plan of Treatment Health Maintenance Due Date Last Done Comments ANNUAL PHYSICAL 1980 Annual Gynecologic Pelvic an d Breast Exam 1980 HEPATITIS C SCREENING 1980 TDAP/TD VACCINES (1 - Tdap) 12/17/1999 MAMMOGRAM 2020 COVID-19 Vaccine ( - 2023-2 5 season) 2025 INFLUENZA VACCINE 04/06/2025 Pneumococcal Vaccine 0-49 Aged Out No longer eligible based on patient's age to complete this topic Care Teams Correctional Sergeant Relationship Specialty Start Date End Date Xavier Cintron MD [address] [place] [address] [facility] [address] [facility] [address] [place] [address] PCP - General 09/13/15
--- OUTSIDE RECORDS SUMMARY | 2025-03-17 10:25 | XMS_ITS | Encounter Summary ---
Author Organization [place] [address] Care Team Providers Care Detective Bureau Chief Name Role Phone Tali Carmona MD Unavailable [phone] Miguel Angel Ohara MD Primary Care Provider [phone] Encounter Details Date Type Department Care Team (Late st Contact Info) Description 01/26/2025 Social Work [facility] [address] [facility] [address] [place] [address] Yomaira Medina, PHOTOGRAPHY PROFESSOR Social History Tobacco Use Types Packs/Day Years Used Date Smoking Tobacco: Never Smokeless Tobacco: Never Alcohol Use Standard Drinks/Week Comments Never 0 (1 standard drink = 0.6 oz pur e alcohol) [facility] Utilities Answer Date Recorded In [...] Date Recorded PHQ-2 Total Score 2 01/14/2025 [facility] [place] of Occupat ional Health - Occupational Stress [...] money to get more. Never true 05/2025 [facility] IP Transportation Answer D ate Recorded [...] Progress Notes * Yomaira Medina MSW - 01/26/2025 10:58 AM EDT 01/26/25 1057 Store Protection Specialist Assessment Referred By SLIM Aaron Disease/[place] Site Manager Report Assignment FT Mil: All Cancer Patient Reason for Referral Patient needs transportation assistance for appt on February 18. Identified Needs Transportation Additional Comments/Recommendations SW has attempted to reach pt by phone to follow up on needs. SWcall was directed to . A message was left for pt requesting a call back to extension. Direct contact info provided. Yomaira Medina LCSW [facility] Social Work [place] [employer] documented in this encounter Plan of Treatment Not on file documented as of this encounter Visit Diagnoses Not on filedocumented in this encounter Additional Health Concerns Assessment Noted Time PHQ-9 Depression Total Score: 2 01/15/20 3:17 PM EDT PHQ-2 Depression Total Score: 2 01/15/20 3:17 PM EDT documented as of this encounter Care Teams Detective Bureau Chief Relationship Specialty Start Date End Date Miguel Angel Ohara MD [address] [place] [address] PCP - General Family Medicine 04/13/24 Tali Carmona MD [address] [place] [address] Consulting Physician Internal Medicine-Nephrology 08/24/20 documented as of this encounter
--- OUTSIDE RECORDS SUMMARY | 2025-03-17 10:25 | XMS_ITS | Encounter Summary ---
Author Organization [place] [address] Care Team Providers Care Rug Scratcher Name Role Phone Tali Carmona MD Unavailable [phone] Miguel Angel Ohara MD Primary Care Provider [phone] Encounter Details Date Type Department Care Team (Late st Contact Info) Description 01/26/2025 Social Work [facility] [address] [facility] [address] [place] [address] Yomaira Medina, FERMENTATION ENGINEER Social History Tobacco Use Types Packs/Day Years Used Date Smoking Tobacco: Never Smokeless Tobacco: Never Alcohol Use Standard Drinks/Week Comments Never 0 (1 standard drink = 0.6 oz pur e alcohol) [facility] Utilities Answer Date Recorded In [...] Date Recorded PHQ-2 Total Score 2 01/14/2025 [facility] of Occupat ional Health - Occupational Stress [...] more. Never true 05/2025 [facility] IP Transportation Answer D ate Recorded [...] Author No 01/06/2025 12:07 PM EDT Elysia [place], RN documented in this encounter Progress Notes * Yomaira Medina MSW - 01/26/2025 1:34 PM EDT 01/26/[address] Machinery Inspector Assessment Disease/[place] Site Platen Press Feeder Assignment FT Mil: All Cancer Patient Reason for Referral f/u call from pt Additional Comments/Recommendations Pt returned SW call to follow up on needs. Pt is scheduled for an appointment with Dr Vera on 02/18 and she is inquiring about the need to keep this appointment. She shared that for the last 20 years she has had factor IV Leiden, multiple blood clots and low iron that she discusses with her PCP. She is wheelchair bound with chronic pain and reports significantdifficulty leaving her home. She is unsure what this appointment is for and would like to know if she is able to cancel this appointment and continue normal follow-ups with her PCP vs moving her 02/18to a telephone visit, as she does not have MyChart. SW discussed this with Clinic RN and agreed to r oute the information to MD via telephone encounter for assistance with determining next steps. Yomaira Medina LCSW [facility] Social Work [facility] documented in this encounter Plan of Treatment Not on file documented as of this encounter Visit Diagnoses Not on filedocumented in this encounter Additional Health Concerns Assessment Noted Time PHQ-9 Depression Total Score: 2 01/15/20 3:17 PM EDT PHQ-2 Depression Total Score: 2 01/15/20 3:17 PM EDT documented as of this encounter Care Teams Rug Scratcher Relationship Specialty Start Date End Date Miguel Angel Ohara MD [address] [facility] [address] [place] [address] PCP - General Family Medicine 04/13/24 Tali Carmona MD [address] [facility] [address] [place] [address] Consulting Physician Internal Medicine-Nephrology 08/24/20 documented as of this encounter
--- OUTSIDE RECORDS SUMMARY | 2025-03-17 10:25 | XMS_ITS | Encounter Summary ---
Author Organization [place] [address] Care Team Providers Care Ramp Manager Name Role Phone Tali Carmona MD Unavailable [phone] Miguel Angel Ohara MD Primary Care Provider [phone] Encounter Details Date Type Department Care Team (Late st Contact Info) Description 01/26/2025 Telephone [facility] [address] [facility] [address] [place] [address] Minesh Vera MD [address] [place], [place] [id number] Social History Tobacco Use Types Packs/Day Years Used Date Smoking Tobacco: Never Smokeless Tobacco: Never Alcohol Use Standard Drinks/Week Comments Never 0 (1 standard drink = 0.6 oz pur e alcohol) [facility] Utilities Answer Date Recorded In the past 12 months has [employer] electric, gas, oil, or water company threatened [...] Date Recorded PHQ-2 Total Score 2 01/14/2025 [facility] [place] of Occupat ional Health - Occupational Stress [...] money to get more. Never true 05/2025 [facility] IP Transportation Answer D ate [...] documented in this encounter Miscellaneous Notes * Telephone Encounter - Yomaira Medina MSW - 01/27/2025 1:24 PM EDT Pt is aware that her appt is cancelled. Thank you! * Telephone Encounter - Minesh Vera MD - 01/26/2025 11:40 PM EDT That???s fine * Telephone Encounter - Yomaira Medina MSW - 01/26/2025 1:27 PM EDT Evangelist is scheduled for an appointment with Dr Vera on 02/18 and she is inquiring about the need tokeep this appointment. She shared that for the last 20 years she has had factor IV Leiden, multipleblood clots and low iron that she discusses with her PCP. She is wheelchair bound with chronic painand reports significant difficulty leaving her home. She is unsure what this appointment is for andwould like to know if she is able to cancel this appointment and continue normal follow-ups with her PCP vs moving her 02/18 to a telephone visit, as she does not have MyChart. documented in this encounter Plan of Treatment Not on file documented as of this encounter Visit Diagnoses Not on filedocumented in this encounter Additional Health Concerns Assessment Noted Time PHQ-9 Depression Total Score: 2 01/15/20 25 3:17 PM EDT PHQ-2 Depression Total Score: 2 01/15/20 25 3:17 PM EDT documented as of this encounter Care Teams Ramp Manager Relationship Specialty Start Date End Date Miguel Angel Ohara MD [address] [place] [address] PCP - General Family Medicine 04/13/24 Tali Carmona MD [address] [place] [address] Consulting Physician Internal Medicine-Nephrology 08/24/20 documented as of this encounter
--- OUTSIDE RECORDS SUMMARY | 2025-03-17 10:25 | XMS_ITS | Encounter Summary ---
Author Organization [place] [address] Care Team Providers Care Motorcoach Driver Name Role Phone Tali Carmona MD Unavailable [phone] Miguel Angel Ohara MD Primary Care Provider Encounter Details Date Type Department Care Team (Latest Contact Info) Description 01/26/2025 External Contact [facility] Pulmon[facility] [address] [address] Dioni Alvarez MD [address] [phone] Chronic respiratory failure with hypoxia (HCC) (Primary Dx) Social History Tobacco Use Types Packs/Day Years Used Date Smoking Tobacco: Never Smokeless Tobacco: Never Alcohol Use Standard Drinks/Week Comments Never 0 (1 standard drink = 0.6 oz pur e alcohol) [facility] Utilities Answer Date Recorded In the past 12 months has [employer], gas, oil, or water [employer] threatened to shut off services in your [...] Date Recorded PHQ-2 Total Score 2 01/14/2025 [facility] of Occupat ional Health - Occupational [...] Progress Notes * Sangeeta Dhillon RMA - 01/26/2025 11:59 PM EDT Pt was seen at [facility] medical records in their system documented in [...] documented as of this encounter Care Teams Motorcoach Driver Relationship Specialty Start Date End Date Miguel Angel Ohara MD [address] [facility] [address] [place] [phone] PCP - General Family Medicine 04/13/24 Tali Carmona MD [address] [facility] [address] [place] [phone] Consulting Physician Internal Medicine-Nephrology 08/24/20 documented as of this encounter
--- OUTSIDE RECORDS SUMMARY | 2025-03-17 10:26 | XMS_ITS | Encounter Summary ---
Author Organization [place] [address] Care Team Providers Care Strategic Marketing Leader Name Role Phone Tali Carmona MD Unavailable Miguel Angel Ohara MD Primary Care Provider Encounter Details Date Type Department Care Team (Latest Contact Info) Description 01/24/2025 External Contact [facility] Pul[facility] [address] [address] Dioni Alvarez MD [address] [address] Morbid obesity (HCC) (Primary Dx); Class 3 severe obesity due to excess calories without serious comorbidity with body mass index (BMI) greater than or equal to 70 in adult; Tricompartment osteoarthritis of knees, bilateral; Chronic hypoxemic respiratory failure (HCC) Social History Tobacco Use Types Packs/Day Years Used Date Smoking Tobacco: Never Smokeless Tobacco: Never Alcohol Use Standard Drinks/Week Comments Never 0 (1 standard drink = 0.6 oz pur e alcohol) [facility] Utilities Answer Date Recorded In the past 12 months has [employer], gas, oil, or water [employer] threatened to shut off services in your [...] Date Recorded PHQ-2 Total Score 2 01/14/2025 [facility] of Occupat ional Health - Occupational Stress [...] more. Never true 05/2025 [facility] IP Transportation Answer D ate Recorded [...] documented in this encounter Progress Notes * María Storey RMA - 01/24/2025 11:59 PM EDT Pt was seen at [facility] medical records in their system documented in this encounter Plan of Treatment Not on file documented as of this encounter Visit Diagnoses Diagnosis Morbid obesity (HCC)- Primary Morbid obesity Class 3 severe obesity due to excess calories without serious comorbidity with body mass index (BMI) greater than or equal to 70 in adult Tricompartment osteoarthritis of knees, bilateral Chronic hypoxemic respiratory failure (HCC) Chronic respiratory failure documented in this encounter Additional Health Concerns Assessment Noted Time PHQ-9 Depression Total Score: 2 01/15/20 25 3:17 PM EDT PHQ-2 Depression Total Score: 2 01/15/20 25 3:17 PM EDT documented as of this encounter Care Teams Strategic Marketing Leader Relationship Specialty Start Date End Date Miguel Angel Ohara MD [address] [facility] [facility] [address] [place] [phone] PCP - General Family Medicine 04/13/24 Tali Carmona MD [address] [facility] [facility] [address] [place] [address] Consulting Physician Internal Medicine-Nephrology 08/24/20 documented as of this encounter
--- OUTSIDE RECORDS SUMMARY | 2025-03-17 10:26 | XMS_ITS | Encounter Summary ---
Author Organization [place] [address] Care Team Providers Care Senior Tech Manufacturing Engineering Name Role Phone Tali Carmona MD Unavailable [phone] Miguel Angel Ohara MD Primary Care Provider [phone] Encounter Details Date Type Department Care Team (Latest Contact Info) Description 01/23/2025 External Contact [facility] Pul[facility] [address] [phone] Dioni Alvarez MD [address] [phone] Morbid obesity (HCC) (Primary Dx); [...] 0.6 oz pur e alcohol) [facility] Utilities Answer Date Recorded In the past 12 months has [employer], gas, oil, or water [email or web address] threatened to shut off services in your [...] Date Recorded PHQ-2 Total Score 2 01/14/2025 [facility] of Occupat ional Health - [...] money to get more. Never true 05/2025 [facility] IP Transportation Answer D ate Recorded [...] Progress Notes * María Storey RMA - 01/23/2025 11:59 PM EDT Pt was seen at [facility] medical records in their system documented [...] documented as of this encounter Care Teams Senior Tech Manufacturing Engineering Relationship Specialty Start Date End Date Miguel Angel Ohara MD [address] [facility] [address] [place] [phone] PCP - General Family Medicine 04/13/24 Tali Carmona MD [address] [facility] [address] [place] [address] Consulting Physician Internal Medicine-Nephrology 08/24/20 documented as of this encounter
--- OUTSIDE RECORDS SUMMARY | 2025-03-17 10:26 | XMS_ITS | Encounter Summary ---
Author Organization [place] [address] Care Team Providers Care Phonograph Mechanic Name Role Phone Tali Carmona MD Unavailable [phone] Miguel Angel Ohara MD Primary Care Provider [phone] Encounter Details Date Type Department Care Team (Latest Contact Info) Description 01/22/2025 External Contact [facility] Pul[facility] [address] [address] Dioni Alvarez MD [address] [phone] Pneumonia of right lower lobe due to infectious organism (Primary Dx); Morbid obesity (HCC); Chronic hypoxemic respiratory failure (HCC) Social History Tobacco Use Types Packs/Day Years Used Date Smoking Tobacco: Never Smokeless Tobacco: Never Alcohol Use Standard Drinks/Week Comments Never 0 (1 standard drink = 0.6 oz pur e alcohol) [facility] Utilities Answer Date Recorded In the past 12 months has [employer], gas, oil, or water [employer] threatened to shut off services in your [...] Date Recorded PHQ-2 Total Score 2 01/14/2025 [facility] - Occupational Stress Questionnaire Answer [...] money to get more. Never true 05/2025 [facility] IP [...] Progress Notes * Sangeeta Dhillon RMA - 01/22/2025 11:59 PM EDT Pt was seen at [facility] medical records in their system documented in this encounter Plan of Treatment Not on file documented as of this encounter Visit Diagnoses Diagnosis Pneumonia of right lower lobe due to infectious organism- Primary Morbid obesity (HCC) Morbid obesity Chronic hypoxemic respiratory failure (HCC) Chronic respiratory failure documented in this encounter Additional Health Concerns Assessment Noted Time PHQ-9 Depression Total Score: 2 01/15/20 3:17 PM EDT PHQ-2 Depression Total Score: 2 01/15/20 3:17 PM EDT documented as of this encounter Care Teams Phonograph Mechanic Relationship Specialty Start Date End Date Miguel Angel Ohara MD [address] [place] [address] PCP - General Family Medicine 04/13/24 Tali Carmona MD [address] [place] [address] Consulting Physician Internal Medicine-Nephrology 08/24/20 documented as of this encounter
--- OUTSIDE RECORDS SUMMARY | 2025-03-17 10:26 | XMS_ITS | Encounter Summary ---
Author Organization [place] [address] Care Team Providers Care Electrical Wirer Name Role Phone Tali Carmona MD Unavailable [phone] Miguel Angel Ohara MD Primary Care Provider [phone] Reason for Referral * Consultation (Routine) - Pending Review Specialty Diagnoses / Procedures Referred By Contac t Referred To Contact Diagnoses Iron deficiency anemia due to chronic blood loss Procedures [facility] REFERRAL Minesh Vera MD [address] [place] [address] Phone: tel: fax: Referral ID Status Reason Start Date Expiration Date V isits Requested Visits Authorized [id number] Pending Review 01/26/2025 01/26/2026 1 1 Encounter Details Date Type Department Care Team (Late st Contact Info) Description 01/26/2025 Orders Only [facility] [address] [place] [id number] Trinidad Siegel, Clerical Staff Iron deficiency anemia due to chronic blood loss (Primary Dx) Social History Tobacco Use Types Packs/Day Years Used Date Smoking Tobacco: Never Smokeless Tobacco: Never Alcohol Use Standard Drinks/Week Comments Never 0 (1 standard drink = 0.6 oz pur e alcohol) [facility] Utilities Answer Date Recorded In the [...] Date Recorded PHQ-2 Total Score 2 [facility]20[facility] - Occupational Stress Questionnaire Answer [...] money to get more. Never true 05/2025 [facility] IP Transportation Answer D ate [...] as of this encounter Visit Diagnoses Diagnosis Iron deficiency anemia due to chronic blood loss- Primary Iron deficiency anemia secondary to blood loss (chronic) documented in this encounter Orders Nursing Count Last Ordered Date First Orde red Date CANCER CARE SOCIAL WORK REFERRAL 1 01/27/20 documented in this encounter Additional Health Concerns Assessment Noted Time PHQ-9 Depression Total Score: 2 01/15/20 3:17 PM EDT PHQ-2 Depression Total Score: 2 01/15/20 3:17 PM EDT documented as of this encounter Care Teams Electrical Wirer Relationship Specialty Start Date End Date Miguel Angel Ohara MD [address] [facility] [address] [place] [address] PCP - General Family Medicine 04/13/24 Tali Carmona MD [address] [facility] [address] [place] [address] Consulting Physician Internal Medicine-Nephrology 08/24/20 documented as of this encounter
--- OUTSIDE RECORDS SUMMARY | 2025-03-17 10:26 | XMS_ITS | Clinical Summary ---
Author Organization [facility] Address [address] [place] [address] Phone Care Team Providers Care Senior Drupal Developer Name Role Phone Tali Carmona MD Unavailable [phone] Miguel Angel Ohara MD Primary Care Provider [phone] Allergies No known active allergies Medications famotidine (PEPCID) 20 mg Oral Tablet Take 40 mg by mouth nightly. Active propranoloL (INDERAL) 20 mg Oral Tablet Take 20 mg by mouth every 12 hours. Active QUEtiapine (SEROQUEL) 100 mg Oral Tablet Take 100 mg by mouth 2 times daily. Active atorvastatin (LIPITOR) 40 mg Oral Tablet Take 40 mg by mouth nightly. Active traMADoL (ULTRAM) 50 mg Oral Tablet Take 50-100 mg by mouth 4 times daily. Active LEVOthyroxine (SYNTHROID) 50 mcg Oral Tablet Take 75 mcg by mouth daily. Active FLUoxetine (PROZAC) 20 mg Oral Capsule Take 60 mg by mouth nightly. Active warfarin (COUMADIN) 5 mg Oral Tablet Take 5-7.5 mg by mouth daily. Takes 7.5 mg MWF and 5 mg on all other days. Active tiZANidine (ZANAFLEX) 4 mg Oral Tablet Take 8 mg by mouth nightly. at bedtime 07/26/19 23 Active folic acid (FOLVITE) 1 mg Oral Tablet Take 1 Tablet by mouth daily. 30 Tablet 04/18/20 24 Active glipiZIDE (GLUCOTROL) 5 mg Oral Tablet Take 1 Tablet by mouth daily (with breakfast). 30 Tablet 04/18/20 24 Active mirabegron (MYRBETRIQ) 50 mg Oral Tablet Sustained Release 24 hr Take 50 mg by mouth daily. Active rOPINIRole (REQUIP) 2 mg Oral Tablet Take 2 mg by mouth 3 times daily. Active albuterol (PROVENTIL HFA;VENTOLIN HFA) 90 mcg/actuation Inhl HFA Aerosol Inhaler Inhale 2 Puffs into the lungs as needed. 12/24/19 Active metFORMIN (GLUCOPHAGE) 500 mg Oral Tablet Take 1 Tablet by mouth 2 times daily (with meals). 01/24/20 Active oxyCODONE 30 mg Oral tablet,oral only,ext.rel.1 2 hr Take 30 mg by mouth every 12 hours. Active amLODIPine (NORVASC) 10 mg Oral Tablet Take 1 Tablet by mouth daily. 02/20/20 Active amoxicillin-cl avulanate (AUGMENTIN) 875-125 mg Oral Tablet Take 1 Tablet by mouth 2 times daily. 02/19/20 Active benzocaine (ORAJEL) 10 % MM Gel Take by mouth as needed for Pain (Tooth pain) for up to 2 doses. 02/19/20 Active torsemide (DEMADEX) 20 mg Oral Tablet Take 2 Tablets by mouth daily. 02/19/20 Active benzonatate (TESSALON) 100 mg Oral Capsule Take 1 Capsule by mouth 3 times daily as needed for Cough. 02/19/20 Active oxyCODONE (OXYCONTIN) 15 mg Oral tablet,oral only,ext.rel.1 2 hr Take 30 mg by mouth every 12 hours. Discontinued(St op Taking at Discharge) torsemide (DEMADEX) 20 mg Oral Tablet Take 20 mg by mouth daily. 12/24/19 Discontinued amLODIPine (NORVASC) 5 mg Oral Tablet Take 5 mg by mouth daily. Discontinued(St op Taking at Discharge) enoxaparin (LOVENOX) 150 mg/mL SubQ Syringe Inject 1 mL under the skin 2 times daily for 5 days. 02/19/20 25 Active Problems Problem Noted Date Diagnosed Date Iron deficiency anemia 02/14/2025 Assessment & Plan (02/14/2025 1:46 PM EDT): - Noted today on labs Start iron replacement IV GI consulted for iron deficiency workup. There is no evidence of endoscopy in our system. REYES (dyspnea on exertion) 02/12/2025 Assessment & Plan (02/14/2025 1:46 PM EDT): - Initially thought to be pneumonia is more than likely heart failure; patient diuresed very aggressively on Lasix. Still with elevated renal function. Also found to have iron deficiency anemia. Echo reassuring per report Labs reviewed with slight bump in creatinine. Holding further diuretic; await further guidance from cardiology. If no better soon, would consult with nephrology. Restart home medications as reconciled and as appropriate. Cardiology consulted; noted plan for diuresis and eventual ischemic evaluation initially. Now noted plan to hold off on ischemic evaluation. Further plan pending renal function. Awaiting attending input. Plan for iron deficiency anemia as below. Assessment & Plan (02/13/2025 2:52 PM EDT): - Initially thought to be pneumonia is more than likely heart failure; patient diuresed very aggressively on Lasix Echo reassuring per report Labs reviewed with slight bump in creatinine. Holding further diuretic Restart home medications as reconciled and as appropriate. Cardiology consulted; noted plan for diuresis and eventual ischemic evaluation initially. Now noted plan to hold off on ischemic evaluation. Further plan pending renal function. Assessment & Plan (02/12/2025 3:01 PM EDT): - Initially thought to be pneumonia is more than likely heart failure Echo Labs reviewed Restart home medications as reconciled and as appropriate. Cardiology consulted; noted plan for diuresis and eventual ischemic evaluation Chest pressure 02/12/2025 Assessment & Plan (02/14/2025 1:46 PM EDT): - Reported on admission Labs followed closely Echo reassuring as above Restart home medications as reconciled and as appropriate. Cardiology consult with plan as above. Await further guidance Assessment & Plan (02/13/2025 2:52 PM EDT): - Reported on admission Labs reviewed Echo reassuring as above Restart home medications as reconciled and as appropriate. Cardiology consult with plan as above Assessment & Plan (02/12/2025 3:01 PM EDT): - Reported on admission Labs reviewed Echo Restart home medications as reconciled and as appropriate. Cardiology consult with plan as above Acute congestive heart failure 02/12/2025 Assessment & Plan (02/14/2025 1:46 PM EDT): - Reported on admission Labs followed closely Echo reassuring as above Restart home medications as reconciled and as appropriate. Cardiology consult with plan as above. Await further guidance Assessment & Plan (02/13/2025 2:52 PM EDT): - Reported on admission Labs reviewed Echo reassuring as above Restart home medications as reconciled and as appropriate. Cardiology consult with plan as above Assessment & Plan (02/12/2025 3:01 PM EDT): - Reported on admission Labs reviewed Echo Restart home medications as reconciled and as appropriate. Cardiology consult with plan as above Demand ischemia 02/12/2025 Assessment & Plan (02/14/2025 1:46 PM EDT): - Reported on admission Labs followed closely Echo reassuring as above Restart home medications as reconciled and as appropriate. Cardiology consult with plan as above. Await further guidance Assessment & Plan (02/13/2025 2:52 PM EDT): - Reported on admission Labs reviewed Echo reassuring as above Restart home medications as reconciled and as appropriate. Cardiology consult with plan as above Assessment & Plan (02/12/2025 3:01 PM EDT): - Reported on admission Labs reviewed Echo Restart home medications as reconciled and as appropriate. Cardiology consult with plan as above Chest pain 02/12/2025 Assessment & Plan (02/14/2025 1:46 PM EDT): - Reported on admission Labs followed closely Echo reassuring as above Restart home medications as reconciled and as appropriate. Cardiology consult with plan as above. Await further guidance Assessment & Plan (02/13/2025 2:52 PM EDT): - Reported on admission Labs reviewed Echo reassuring as above Restart home medications as reconciled and as appropriate. Cardiology consult with plan as above Assessment & Plan (02/12/2025 3:01 PM EDT): - Reported on admission Labs reviewed Echo Restart home medications as reconciled and as appropriate. Cardiology consult with plan as above GRAZYNA (acute kidney injury). L ikely due to vancomycin toxicity. Creatinine is improving 01/18/2025 Assessment & Plan (01/20/2025 5:18 PM EDT): Continue to monitor renal function Hold metformin for 2-3 more days. Assessment & Plan (01/19/2025 1:33 PM EDT): Start continue gentle IV hydration with NS at 100 mL/h Vancomycin has been discontinued. Minimize use of nephrotoxic agents Monitor renal function Assessment & Plan (01/18/2025 4:15 PM EDT): Start gentle IV hydration with NS at 100 mL/h Vancomycin has been discontinued. Minimize use of nephrotoxic agents Monitor renal function Pneumonia of right lower lobe due to infectious organism 01/13/2025 Assessment & Plan (01/20/2025 9:02 AM EDT): Continue Augmentin 875 mg twice daily and doxycycline 100 mg twice daily Assessment & Plan (01/19/2025 9:04 AM EDT): Continue Augmentin 875 mg twice daily and doxycycline 100 mg twice daily Assessment & Plan (01/18/2025 4:15 PM EDT): Continue Augmentin 875 mg twice daily and doxycycline 100 mg twice daily Assessment & Plan (01/17/2025 1:55 PM EDT): Will de-escalate blood spectrum antibiotics and start Augmentin. Continue doxycycline 100 mg twice daily Assessment & Plan (01/16/2025 11:27 AM EDT): Will continue to treat with broad-spectrum antibiotics including cefepime and doxycycline Assessment & Plan (01/15/2025 3:26 PM EDT): Will continue to treat with broad-spectrum antibiotics including cefepime and doxycycline Monitor WBCs. Assessment & Plan (01/14/2025 2:24 PM EDT): Will continue to treat with broad-spectrum antibiotics including cefepime and doxycycline Blood cultures have been sent. Will follow the results Assessment & Plan (01/13/2025 5:24 PM EDT): Will treat with broad-spectrum antibiotics including vancomycin, cefepime given recent hospitalization Add doxycycline 100 mg twice daily to cover for atypicals Blood cultures have been sent. Will follow the results Type 2 diabetes mellitus wit h diabetic polyneuropathy, without long-term current use of insulin 01/03/2025 Assessment & Plan (02/14/2025 1:46 PM EDT): - No acute issues reported Restart home medications as reconciled and as appropriate. Assessment & Plan (02/13/2025 2:52 PM EDT): - No acute issues reported Restart home medications as reconciled and as appropriate. Assessment & Plan (02/12/2025 3:01 PM EDT): - No acute issues reported Restart home medications as reconciled and as appropriate. Assessment & Plan (01/03/2025 12:19 PM EDT): Recent A1C at goal. BS high here. OK to restart home meds and continue to follow Chronic pain syndrome 01/03/2025 Assessment & Plan (02/14/2025 1:46 PM EDT): - Complicates all aspects of care Restart home medications as reconciled and as appropriate. Pharmacy consulted to assist with reconciling her narcotic regimen Assessment & Plan (02/13/2025 2:52 PM EDT): - Complicates all aspects of care Restart home medications as reconciled and as appropriate. Pharmacy consulted to assist with reconciling her narcotic regimen Assessment & Plan (02/12/2025 3:01 PM EDT): - Complicates all aspects of care Restart home medications as reconciled and as appropriate. Pharmacy consulted to assist with reconciling her narcotic regimen Assessment & Plan (01/03/2025 12:19 PM EDT): Continue home OxyContin Abnormal uterine bleeding (AUB) 01/03/2025 Assessment & Plan (01/03/2025 12:19 PM EDT): CHECK SERVICES CLERK consult appreciated. Patient needs outpatient f/u. I do not think that the chart review done by CHECK SERVICES CLERK is giving them the full weight of the pt's situation. It's not clear if she will be able to f/u as an outpatient, but even if CHECK SERVICES CLERK came and saw her, they would not be able to offer definitive treatment while she is here. The pt needs to find a way to get to the office. Will see is SS can help. Callus of foot 01/02/2025 Assessment & Plan (01/03/2025 12:19 PM EDT): Appreciate input from DPM. Debrided today Pain, foot, left, chronic 01/02/2025 Assessment & Plan (01/03/2025 12:19 PM EDT): Appreciate input from DPM. Debrided today History of DVT (deep vein thrombosis) 12/31/2024 Assessment & Plan (01/03/2025 12:19 PM EDT): Appreciate input from Minnie. Studies pending for genetics Superficial thrombosis of leg, right 12/30/2024 Assessment & Plan (01/03/2025 12:19 PM EDT): Clot may be growing or vein may just be congested. Continue heparin to coumadin. Still subtherapeutic. COVID-19 virus infection 06/07/2024 Assessment & Plan (06/12/2024 4:04 PM EST): Symptoms improving, remains on room air Continue to monitor respiratory status Assessment & Plan (06/11/2024 1:16 PM EST): Slightly better today. Remains on room air 06/11 Continue to monitor respiratory status Assessment & Plan (06/10/2024 1:59 PM EST): Patient has generalized bodyaches. Remains on room air Continue to monitor respiratory status Assessment & Plan (06/09/2024 1:47 PM EST): Patient has generalized bodyaches. Remains on room air Continue to monitor respiratory status Assessment & Plan (06/08/2024 4:24 PM EST): Patient has generalized bodyaches. Remains on room air Continue to monitor respiratory status Assessment & Plan (06/07/2024 3:37 PM EST): Patient is fairly asymptomatic besides a slight cough. No oxygen requirement Will obtain chest x-ray Continue to monitor respiratory status Sore throat 06/06/2024 Assessment & Plan (06/12/2024 4:04 PM EST): Likely due to COVID-19. Continue supportive care Assessment & Plan (06/11/2024 8:46 AM EST): Likely due to COVID-19. Continue supportive care Assessment & Plan (06/10/2024 1:59 PM EST): Likely due to COVID-19. Continue supportive care Assessment & Plan (06/09/2024 1:47 PM EST): Likely due to COVID-19. Continue supportive care Assessment & Plan (06/08/2024 4:24 PM EST): Likely due to COVID-19. Continue supportive care Assessment & Plan (06/07/2024 3:37 PM EST): Likely due to COVID-19. Continue supportive care Assessment & Plan (06/06/2024 2:18 PM EST): Will check flu and COVID Hypocalcemia 06/01/2024 Assessment & Plan (06/12/2024 4:04 PM EST): Continue to replace with Os-Diaz plus D 1 tab BID Assessment & Plan (06/11/2024 8:46 AM EST): Continue to replace with Os-Diaz plus D 1 tab BID Assessment & Plan (06/10/2024 1:59 PM EST): Continue to replace with Os-Diaz plus D 1 tab BID Assessment & Plan (06/09/2024 1:47 PM EST): Continue to replace with Os-Diaz plus D 1 tab BID Assessment & Plan (06/08/2024 4:24 PM EST): Continue to replace with Os-Diaz plus D 1 tab BID Assessment & Plan (06/07/2024 2:11 PM EST): Continue to replace with Os-Diaz plus D 1 tab BID Assessment & Plan (06/06/2024 2:18 PM EST): Continue to replace with Os-Diaz plus D 1 tab BID Assessment & Plan (06/05/2024 12:25 PM EST): Continue to replace with Os-Diaz plus D 1 tab BID Assessment & Plan (06/04/2024 1:02 PM EST): Continue to replace with Os-Diaz plus D 1 tab BID Assessment & Plan (06/03/2024 1:03 PM EST): Continue to replace with Os-Diaz plus D 1 tab BID Assessment & Plan (06/02/2024 12:31 PM EST): Continue to replace with Os-Diaz plus D 1 tab BID Assessment & Plan (06/01/2024 3:20 PM EST): Replace with Os-Diaz plus D 1 tab BID Cellulitis 05/30/2024 Cellulitis of abdominal wall 05/29/2024 Chronic back pain 05/29/2024 Assessment & Plan (01/20/2025 9:02 AM EDT): Patient is on oxycontin 15 mg every 12 hours On Zanaflex 8 mg at bedtime. Assessment & Plan (01/19/2025 9:04 AM EDT): Patient is on oxycontin 15 mg every 12 hours On Zanaflex 8 mg at bedtime. Assessment & Plan (01/18/2025 9:34 AM EDT): Patient is on oxycontin 15 mg every 12 hours On Zanaflex 8 mg at bedtime. Assessment & Plan (01/17/2025 9:28 AM EDT): Patient is on oxycontin 15 mg every 12 hours On Zanaflex 8 mg at bedtime. Assessment & Plan (01/16/2025 7:41 AM EDT): Patient is on oxycontin 15 mg every 12 hours On Zanaflex 8 mg at bedtime. Assessment & Plan (01/15/2025 9:56 AM EDT): Patient is on oxycontin 15 mg every 12 hours On Zanaflex 8 mg at bedtime. Assessment & Plan (01/14/2025 2:24 PM EDT): Patient is on oxycontin 15 mg every 12 hours On Zanaflex 8 mg at bedtime. Assessment & Plan (01/13/2025 5:24 PM EDT): Resume home meds including oxycontin 15 mg every 12 hours And Zanaflex 8 mg at bedtime. Assessment & Plan (06/12/2024 4:04 PM EST): Continue home meds including MS Contin 30 mg every 12 hours On Ultram 50 mg or 6 hours as needed. Assessment & Plan (06/11/2024 8:46 AM EST): Continue home meds including MS Contin 30 mg every 12 hours On Ultram 50 mg or 6 hours as needed. Assessment & Plan (06/10/2024 1:59 PM EST): Continue home meds including MS Contin 30 mg every 12 hours On Ultram 50 mg or 6 hours as needed. Assessment & Plan (06/09/2024 1:47 PM EST): Continue home meds including MS Contin 30 mg every 12 hours On Ultram 50 mg or 6 hours as needed. Assessment & Plan (06/08/2024 4:24 PM EST): -Continue home meds including MS Contin 30 mg every 12 hours -On Ultram 50 mg or 6 hours as needed. Assessment & Plan (06/07/2024 2:11 PM EST): -Continue home meds including MS Contin 30 mg every 12 hours -On Ultram 50 mg or 6 hours as needed. Assessment & Plan (06/06/2024 12:33 PM EST): -Continue home meds including MS Contin 30 mg every 12 hours -On Ultram 50 mg or 6 hours as needed. Assessment & Plan (06/05/2024 12:25 PM EST): -Continue home meds including MS Contin 30 mg every 12 hours -On Ultram 50 mg or 6 hours as needed. Assessment & Plan (06/04/2024 3:00 PM EST): -Continue home meds including MS Contin 30 mg every 12 hours -On Ultram 50 mg or 6 hours as needed. Assessment & Plan (06/03/2024 1:03 PM EST): -Continue home meds including MS Contin 30 mg every 12 hours -Ultram 50 mg or 6 hours as needed. Assessment & Plan (06/02/2024 11:31 AM EST): -Continue home meds including MS Contin 30 mg every 12 hours -Ultram 50 mg or 6 hours as needed. Assessment & Plan (06/01/2024 12:09 PM EST): -Continue home meds including MS Contin 30 mg every 12 hours -Ultram 50 mg or 6 hours as needed. Assessment & Plan (05/31/2024 3:57 PM EST): -Continue home meds including MS Contin 30 mg every 12 hours -Ultram 50 mg or 6 hours as needed. Assessment & Plan (05/30/2024 2:38 PM EST): Continue home meds including MS Contin 30 mg every 12 hours -Ultram 50 mg or 6 hours as needed. Assessment & Plan (05/29/2024 1:42 PM EST): Resume home meds including MS Contin 30 mg every 12 hours -Ultram 50 mg or 6 hours as needed. Mood disorder 05/29/2024 Assessment & Plan (02/14/2025 1:46 PM EDT): - No acute issues reported Restart home medications as reconciled and as appropriate. Assessment & Plan (02/13/2025 2:52 PM EDT): - No acute issues reported Restart home medications as reconciled and as appropriate. Assessment & Plan (02/12/2025 3:01 PM EDT): - No acute issues reported Restart home medications as reconciled and as appropriate. Assessment & Plan (01/20/2025 9:02 AM EDT): On Prozac 20 mg daily Assessment & Plan (01/19/2025 9:04 AM EDT): On Prozac 20 mg daily Assessment & Plan (01/18/2025 9:34 AM EDT): On Prozac 20 mg daily Assessment & Plan (01/17/2025 9:28 AM EDT): On Prozac 20 mg daily Assessment & Plan (01/16/2025 7:41 AM EDT): On Prozac 20 mg daily Assessment & Plan (01/15/2025 9:56 AM EDT): On Prozac 20 mg daily Assessment & Plan (01/14/2025 9:10 AM EDT): On Prozac 20 mg daily Assessment & Plan (01/13/2025 5:24 PM EDT): On Prozac 20 mg daily Assessment & Plan (01/03/2025 12:19 PM EDT): Continue SSRI Assessment & Plan (06/12/2024 4:04 PM EST): Continue Seroquel 100 mg twice daily and Prozac 20 mg at night. Assessment & Plan (06/11/2024 8:46 AM EST): Continue Seroquel 100 mg twice daily and Prozac 20 mg at night. Assessment & Plan (06/10/2024 1:59 PM EST): Continue Seroquel 100 mg twice daily and Prozac 20 mg at night. Assessment & Plan (06/09/2024 1:47 PM EST): Continue Seroquel 100 mg twice daily and Prozac 20 mg at night. Assessment & Plan (06/08/2024 4:24 PM EST): -Continue Seroquel 100 mg twice daily and Prozac 20 mg at night. Assessment & Plan (06/07/2024 2:11 PM EST): -Continue Seroquel 100 mg twice daily and Prozac 20 mg at night. Assessment & Plan (06/06/2024 12:33 PM EST): -Continue Seroquel 100 mg twice daily and Prozac 20 mg at night. Assessment & Plan (06/05/2024 12:25 PM EST): -Continue Seroquel 100 mg twice daily and Prozac 20 mg at night. Assessment & Plan (06/04/2024 1:02 PM EST): -Continue Seroquel 100 mg twice daily and Prozac 20 mg at night. Assessment & Plan (06/03/2024 1:03 PM EST): -Continue Seroquel 100 mg twice daily and Prozac 20 mg at night. Assessment & Plan (06/02/2024 11:31 AM EST): -Continue Seroquel 100 mg twice daily and Prozac 20 mg at night. Assessment & Plan (06/01/2024 12:09 PM EST): -Continue Seroquel 100 mg twice daily and Prozac 20 mg at night. Assessment & Plan (05/31/2024 3:57 PM EST): -Continue Seroquel 100 mg twice daily and Prozac 20 mg at night. Assessment & Plan (05/30/2024 2:38 PM EST): -Seroquel 100 mg twice daily and Prozac 20 mg at night. Assessment & Plan (05/29/2024 1:42 PM EST): Resume home meds including Seroquel 100 mg twice daily and Prozac 20 g at night. Hypokalemia 05/29/2024 Assessment & Plan (06/12/2024 4:04 PM EST): Continue to monitor Repeat BMP in a.m. Assessment & Plan (06/11/2024 8:46 AM EST): Continue to monitor Repeat BMP in a.m. Assessment & Plan (06/10/2024 1:59 PM EST): Continue to monitor Repeat BMP in a.m. Assessment & Plan (06/09/2024 1:47 PM EST): Continue to monitor Repeat BMP in a.m. Assessment & Plan (06/08/2024 4:24 PM EST): Continue to monitor Repeat BMP in a.m. Assessment & Plan (06/07/2024 3:37 PM EST): Continue to monitor Repeat BMP in a.m. Assessment & Plan (06/06/2024 12:33 PM EST): Continue to monitor Assessment & Plan (06/05/2024 12:25 PM EST): Continue to monitor Assessment & Plan (06/04/2024 3:00 PM EST): Continue to monitor Assessment & Plan (06/03/2024 1:03 PM EST): Resolved after replacement Continue to monitor Assessment & Plan (06/02/2024 12:31 PM EST): Resolved after replacement Continue to monitor Assessment & Plan (06/01/2024 3:20 PM EST): K-Dur 40 mEq x 1 BMP in a.m. Assessment & Plan (05/31/2024 3:57 PM EST): Resolved after replacement. Continue to monitor Assessment & Plan (05/30/2024 2:38 PM EST): K-Dur 40 mEq x 1 today Assessment & Plan (05/29/2024 1:42 PM EST): Replaced with K-Dur 40 mEq x 1 Cellulitis of abdominal wall . Improving. Patient picks her skin constantly. 05/28/2024 Assessment & Plan (01/20/2025 9:02 AM EDT): Change vancomycin and cefepime to Augmentin and continue doxycycline 100 mg twice daily Assessment & Plan (01/19/2025 9:04 AM EDT): Change vancomycin and cefepime to Augmentin and continue doxycycline 100 mg twice daily Assessment & Plan (01/18/2025 9:34 AM EDT): Change vancomycin and cefepime to Augmentin and continue doxycycline 100 mg twice daily Assessment & Plan (01/17/2025 1:55 PM EDT): Change vancomycin and cefepime to Augmentin and continue doxycycline 100 mg twice daily Assessment & Plan (01/16/2025 11:27 AM EDT): Continue broad-spectrum antibiotics including vancomycin and cefepime for 1-2 more days. Continue local care Patient is advised to stop picking her skin. Vancomycin is a high risk medication which requires frequent monitoring with repeated Vanco level to minimize toxicity Assessment & Plan (01/15/2025 3:26 PM EDT): Continue broad-spectrum antibiotics including vancomycin and cefepime Continue local care Vancomycin is a high risk medication which requires frequent monitoring with repeated Vanco level to minimize toxicity Patient is advised to stop picking her skin Assessment & Plan (01/14/2025 2:24 PM EDT): Continue broad-spectrum antibiotics including vancomycin and cefepime Continue local care Vancomycin is a high risk medication which requires frequent monitoring with repeated Vanco level to minimize toxicity Assessment & Plan (01/13/2025 5:24 PM EDT): Continue broad-spectrum antibiotics including vancomycin, cefepime as noted above Assessment & Plan (06/12/2024 4:04 PM EST): Completed doxycycline and Omnicef as recommended by ID. Continue supportive care. Assessment & Plan (06/11/2024 8:46 AM EST): Completed doxycycline and Omnicef as recommended by ID. Continue supportive care. Assessment & Plan (06/10/2024 1:59 PM EST): Completed doxycycline and Omnicef as recommended by ID. Continue supportive care. Assessment & Plan (06/09/2024 1:47 PM EST): Completed doxycycline and Omnicef as recommended by ID. Continue supportive care. Assessment & Plan (06/08/2024 4:24 PM EST): -Completed doxycycline and Omnicef as recommended by ID. -Continue supportive care. Assessment & Plan (06/07/2024 2:11 PM EST): -On doxycycline and Omnicef as recommended by ID. -Continue supportive care. Assessment & Plan (06/06/2024 12:33 PM EST): -On doxycycline and Omnicef as recommended by ID. -Continue supportive care. Assessment & Plan (06/05/2024 1:38 PM EST): -On doxycycline and Omnicef as recommended by ID. -Continue supportive care. Assessment & Plan (06/04/2024 1:02 PM EST): -Continue doxycycline and Omnicef as recommended by ID. -Continue supportive care. Assessment & Plan (06/03/2024 1:23 PM EST): -Continue doxycycline and Omnicef as recommended by ID. -Continue supportive care. Assessment & Plan (06/02/2024 12:31 PM EST): -Vancomycin was changed to doxycycline and Omnicef per ID. -Continue supportive care. Assessment & Plan (06/01/2024 3:20 PM EST): -Patient in on vancomycin as recommended by ID. -Discussed with ID, plan to transition to oral antibiotics soon. Assessment & Plan (05/31/2024 3:57 PM EST): -Patient in on vancomycin as recommended by ID. Assessment & Plan (05/30/2024 2:38 PM EST): Patient in on vancomycin ID is following. Assessment & Plan (05/29/2024 1:42 PM EST): Patient has been started on Rocephin and vancomycin Will ask ID to evaluate Diabetic polyneuropathy asso ciated with type 2 diabetes mellitus 04/13/2024 Candidal intertrigo 04/13/2024 Toe infection 04/12/2024 Assessment & Plan (04/12/2024 5:26 PM EDT): Ask Podiatry to see Abdominal wall cellulitis 04/11/2024 Assessment & Plan (04/12/2024 2:13 PM EDT): Persisting issue. Very large body habitus is complicating and may limit ability to achieve good antibiotic concentrations at site of cellulitis. Ask ID to see here CKD (chronic kidney disease) stage 2, GFR 60-89 ml/min 08/31/2020 Assessment & Plan (01/03/2025 12:19 PM EDT): Cr likely near baseline. Assessment & Plan (04/12/2024 2:13 PM EDT): Follow Creatinine here GRAZYNA (acute kidney injury) 01/06/2020 Restless leg syndrome 12/19/2019 Assessment & Plan (01/03/2025 12:19 PM EDT): Improved Sx with increase in dose of Rrequip Factor V Leiden 12/15/2019 Assessment & Plan (02/14/2025 1:46 PM EDT): - INR to be followed. Appreciate pharmacy assistance Labs reviewed Restart home medications as reconciled and as appropriate. Pharmacy to assist with Coumadin per facility protocol Assessment & Plan (02/13/2025 2:52 PM EDT): - INR to be followed. Appreciate pharmacy assistance Labs reviewed Restart home medications as reconciled and as appropriate. Pharmacy to assist with Coumadin per facility protocol Assessment & Plan (02/12/2025 3:01 PM EDT): - INR okay per report. Labs reviewed Restart home medications as reconciled and as appropriate. Pharmacy to assist with Coumadin per facility protocol Assessment & Plan (01/20/2025 9:02 AM EDT): Patient is on Coumadin. Pharmacy is managing Labs reviewed. INR is 2.64 Discussed with pharmacy. Assessment & Plan (01/19/2025 1:33 PM EDT): Patient is on Coumadin. Pharmacy is managing Labs reviewed. INR is 2.64 Discussed with pharmacy. Assessment & Plan (01/18/2025 4:15 PM EDT): Patient is on Coumadin. Pharmacy is managing Labs reviewed. INR is 2.42 Discussed with pharmacy. Assessment & Plan (01/17/2025 9:28 AM EDT): Patient is on Coumadin. Pharmacy is managing Labs reviewed. INR is 1.90 today Assessment & Plan (01/16/2025 11:27 AM EDT): Patient is on Coumadin. Pharmacy is managing Labs reviewed. INR is 1.90 today Assessment & Plan (01/15/2025 3:26 PM EDT): Patient is on Coumadin. Pharmacy is managing Assessment & Plan (01/14/2025 9:10 AM EDT): INR is therapeutic. Pharmacy to manage Coumadin. Discussed with the pharmacist Assessment & Plan (01/13/2025 5:24 PM EDT): INR is therapeutic. Pharmacy to manage Coumadin. Discussed with the pharmacist Assessment & Plan (01/03/2025 12:19 PM EDT): Appreciate input from Heme. Studies pending for genetics Assessment & Plan (06/12/2024 4:04 PM EST): Continue Coumadin. Pharmacy is managing. Assessment & Plan (06/11/2024 8:46 AM EST): Continue Coumadin. Pharmacy is managing. Assessment & Plan (06/10/2024 1:59 PM EST): Continue Coumadin. Pharmacy is managing. Assessment & Plan (06/09/2024 1:47 PM EST): Continue Coumadin. Pharmacy is managing. Assessment & Plan (06/08/2024 4:24 PM EST): -Continue Coumadin. -Pharmacy is managing. Assessment & Plan (06/07/2024 2:11 PM EST): -Continue Coumadin. -Pharmacy is managing. Assessment & Plan (06/06/2024 12:33 PM EST): -Continue Coumadin. -Pharmacy is managing. Assessment & Plan (06/05/2024 12:25 PM EST): -Continue Coumadin. -Pharmacy is managing. Assessment & Plan (06/04/2024 1:02 PM EST): -Continue Coumadin. -Pharmacy is managing. Assessment & Plan (06/03/2024 1:03 PM EST): -Continue Coumadin. -Pharmacy is managing. Assessment & Plan (06/02/2024 11:31 AM EST): -Continue Coumadin. -Pharmacy is managing. Assessment & Plan (06/01/2024 12:09 PM EST): -Continue Coumadin. -Pharmacy is managing. Assessment & Plan (05/31/2024 3:57 PM EST): -Continue Coumadin. -Pharmacy is managing. Assessment & Plan (05/30/2024 2:38 PM EST): Continue Coumadin. Pharmacy is managing. Assessment & Plan (05/29/2024 1:42 PM EST): Resume Coumadin. Pharmacy to manage Stage 3 acute kidney injury 12/15/2019 Assessment & Plan (02/14/2025 1:46 PM EDT): - Renal function with bump likely from overdiuresis; persistent Restart home medications as reconciled and as appropriate. Monitor closely; may need nephrology input soon. Potassium replacement ordered previously Assessment & Plan (02/13/2025 2:52 PM EDT): - Renal function with bump likely from overdiuresis Restart home medications as reconciled and as appropriate. Monitor closely; may need nephrology input soon. Potassium replacement ordered today. Assessment & Plan (02/12/2025 3:01 PM EDT): - Renal function appears to be around baseline Restart home medications as reconciled and as appropriate. Monitor closely while on aggressive diuretics Assessment & Plan (01/03/2025 12:19 PM EDT): Cr likely near baseline. Class 3 severe obesity with body mass index (BMI) greater than or equal to 70 in adult 12/15/2019 Assessment & Plan (01/20/2025 9:02 AM EDT): Weight loss recommended as obesity complicates all aspects of care Assessment & Plan (01/19/2025 9:04 AM EDT): Weight loss recommended as obesity complicates all aspects of care Assessment & Plan (01/18/2025 9:34 AM EDT): Weight loss recommended as obesity complicates all aspects of care Assessment & Plan (01/17/2025 9:28 AM EDT): Weight loss recommended as obesity complicates all aspects of care Assessment & Plan (01/16/2025 7:41 AM EDT): Weight loss recommended as obesity complicates all aspects of care Assessment & Plan (01/15/2025 9:56 AM EDT): Weight loss recommended as obesity complicates all aspects of care Assessment & Plan (01/14/2025 9:10 AM EDT): Weight loss recommended as obesity complicates all aspects of care Assessment & Plan (01/13/2025 5:24 PM EDT): Weight loss recommended as obesity complicates all aspects of care Assessment & Plan (01/03/2025 12:19 PM EDT): Exacerbate all of her medical and social issues Assessment & Plan (06/12/2024 4:04 PM EST): Weight loss recommended Assessment & Plan (06/11/2024 1:17 PM EST): Weight loss recommended Assessment & Plan (06/10/2024 1:59 PM EST): Weight loss recommended Assessment & Plan (06/09/2024 1:47 PM EST): Weight loss recommended Assessment & Plan (06/08/2024 4:24 PM EST): -Weight loss recommended Assessment & Plan (06/07/2024 2:11 PM EST): -Weight loss recommended Assessment & Plan (06/06/2024 12:33 PM EST): -Weight loss recommended Assessment & Plan (06/05/2024 12:25 PM EST): -Weight loss recommended Assessment & Plan (06/04/2024 1:02 PM EST): -Weight loss recommended Assessment & Plan (06/03/2024 1:03 PM EST): -Weight loss recommended Assessment & Plan (06/02/2024 11:31 AM EST): -Weight loss recommended Assessment & Plan (06/01/2024 12:09 PM EST): -Weight loss recommended Assessment & Plan (05/31/2024 3:57 PM EST): -Weight loss recommended Assessment & Plan (05/30/2024 9:02 AM EST): Weight loss recommended Assessment & Plan (05/29/2024 1:42 PM EST): Weight loss recommended Assessment & Plan (04/12/2024 2:13 PM EDT): Complicates all aspects of care and is actively killing this patient. Anemia of chronic disease 12/15/2019 Assessment & Plan (01/20/2025 9:02 AM EDT): Continue to monitor hemoglobin Ferrlecit 125 mg x 2 doses given. Assessment & Plan (01/19/2025 9:04 AM EDT): Continue to monitor hemoglobin Ferrlecit 125 mg x 2 doses given. Assessment & Plan (01/18/2025 9:34 AM EDT): Continue to monitor hemoglobin Ferrlecit 125 mg x 2 doses given. Assessment & Plan (01/17/2025 1:55 PM EDT): Continue to monitor hemoglobin Ferrlecit 125 mg x 2 doses given. Assessment & Plan (01/16/2025 11:27 AM EDT): Continue to monitor hemoglobin Ferrlecit 125 mg x 1 Assessment & Plan (01/03/2025 12:19 PM EDT): Hgb has been stable. Recheck in am Hyponatremia 12/15/2019 Lactate blood increase 12/15/2019 Hypocalcemia 12/15/2019 Hyperkalemia 12/15/2019 Presence of IVC filter 12/15/2019 Assessment & Plan (02/14/2025 1:46 PM EDT): - No acute issues reported Management of filter per placing physician Assessment & Plan (02/13/2025 2:52 PM EDT): - No acute issues reported Management of filter per placing physician Assessment & Plan (02/12/2025 3:01 PM EDT): - No acute issues reported Management of filter per placing physician Hyperlipidemia 12/15/2019 Assessment & Plan (01/03/2025 12:19 PM EDT): statin Falls 12/15/2019 Overview (12/15/2019): Fell 2x ~ 12/13/19, denies injuries. Metabolic acidosis 12/15/2019 Hypothyroidism Assessment & Plan (02/14/2025 1:46 PM EDT): - Most recent TSH within normal limits per report Restart home medications as reconciled and as appropriate. Assessment & Plan (02/13/2025 2:52 PM EDT): - Most recent TSH within normal limits per report Restart home medications as reconciled and as appropriate. Assessment & Plan (02/12/2025 3:01 PM EDT): - Most recent TSH within normal limits Restart home medications as reconciled and as appropriate. Assessment & Plan (01/20/2025 9:02 AM EDT): Continue Synthroid 50 mcg daily Assessment & Plan (01/19/2025 9:04 AM EDT): Continue Synthroid 50 mcg daily Assessment & Plan (01/18/2025 9:34 AM EDT): Continue Synthroid 50 mcg daily Assessment & Plan (01/17/2025 9:28 AM EDT): Continue Synthroid 50 mcg daily Assessment & Plan (01/16/2025 7:41 AM EDT): Continue Synthroid 50 mcg daily Assessment & Plan (01/15/2025 9:56 AM EDT): Continue Synthroid 50 mcg daily Assessment & Plan (01/14/2025 2:24 PM EDT): Continue Synthroid 50 mcg daily Assessment & Plan (01/13/2025 5:24 PM EDT): Resume Synthroid 50 mcg daily Assessment & Plan (01/03/2025 12:19 PM EDT): Continue Synthroid Assessment & Plan (06/12/2024 4:04 PM EST): Continue Synthroid 50 mcg daily Assessment & Plan (06/11/2024 8:46 AM EST): Continue Synthroid 50 mcg daily Assessment & Plan (06/10/2024 1:59 PM EST): Continue Synthroid 50 mcg daily Assessment & Plan (06/09/2024 1:47 PM EST): Continue Synthroid 50 mcg daily Assessment & Plan (06/08/2024 4:24 PM EST): -Continue Synthroid 50 mcg daily Assessment & Plan (06/07/2024 2:11 PM EST): -Continue Synthroid 50 mcg daily Assessment & Plan (06/06/2024 12:33 PM EST): -Continue Synthroid 50 mcg daily Assessment & Plan (06/05/2024 12:25 PM EST): -Continue Synthroid 50 mcg daily Assessment & Plan (06/04/2024 1:02 PM EST): -Continue Synthroid 50 mcg daily Assessment & Plan (06/03/2024 1:03 PM EST): -Continue Synthroid 50 mcg daily Assessment & Plan (06/02/2024 11:31 AM EST): -Continue Synthroid 50 mcg daily Assessment & Plan (06/01/2024 12:09 PM EST): -Continue Synthroid 50 mcg daily Assessment & Plan (05/31/2024 3:57 PM EST): -Continue Synthroid 50 mcg daily Assessment & Plan (05/30/2024 9:02 AM EST): Continue Synthroid 50 mcg daily Assessment & Plan (05/29/2024 1:42 PM EST): Continue Synthroid 50 mcg daily AURELIA (obstructive sleep apnea) Overview (12/15/2019): uses CPAP Assessment & Plan (02/14/2025 1:46 PM EDT): - Reports being noncompliant with her CPAP therapy unfortunately. No acute issues reported. Social work to assist with getting patient new parts for her machine. Await further guidance Continue NIV based on home regimen while here. Assessment & Plan (02/13/2025 2:52 PM EDT): - Reports being noncompliant with her CPAP therapy unfortunately. Social work to assist with getting patient new parts for her machine. Await further guidance Continue NIV based on home regimen while here. Assessment & Plan (02/12/2025 3:01 PM EDT): - Reports being noncompliant with her CPAP therapy unfortunately. Social work to assist with getting patient new parts for her machine. Continue NIV based on home regimen while here. Assessment & Plan (01/03/2025 12:19 PM EDT): CPAP at hs Assessment & Plan (06/12/2024 4:04 PM EST): On CPAP at night Assessment & Plan (06/11/2024 8:46 AM EST): On CPAP at night Assessment & Plan (06/10/2024 1:59 PM EST): On CPAP at night Assessment & Plan (06/09/2024 1:47 PM EST): On CPAP at night Assessment & Plan (06/08/2024 4:24 PM EST): -On CPAP at night Assessment & Plan (06/07/2024 2:11 PM EST): -On CPAP at night Assessment & Plan (06/06/2024 12:33 PM EST): -On CPAP at night Assessment & Plan (06/05/2024 12:25 PM EST): -On CPAP at night Assessment & Plan (06/04/2024 1:02 PM EST): -On CPAP at night Assessment & Plan (06/03/2024 1:03 PM EST): -On CPAP at night Assessment & Plan (06/02/2024 11:31 AM EST): -On CPAP at night Assessment & Plan (06/01/2024 12:09 PM EST): -On CPAP at night Assessment & Plan (05/31/2024 3:57 PM EST): -On CPAP at night Assessment & Plan (05/30/2024 9:02 AM EST): On CPAP at night Assessment & Plan (05/29/2024 1:42 PM EST): On CPAP at night Hypertension Assessment & Plan (02/14/2025 1:46 PM EDT): - Pressures were elevated likely from being fluid overloaded. Pressures are intermittently elevated. Restart home medications as reconciled and as appropriate. Cardiology following. Assessment & Plan (02/13/2025 2:52 PM EDT): - Pressures were elevated likely from being fluid overloaded. Pressures are better. Restart home medications as reconciled and as appropriate. Cardiology following. Assessment & Plan (02/12/2025 3:01 PM EDT): - Pressures are elevated likely from being fluid overloaded Restart home medications as reconciled and as appropriate. Plan as above Assessment & Plan (01/20/2025 9:02 AM EDT): On Norvasc 5 mg daily Assessment & Plan (01/19/2025 9:04 AM EDT): On Norvasc 5 mg daily Assessment & Plan (01/18/2025 9:34 AM EDT): On Norvasc 5 mg daily Assessment & Plan (01/17/2025 9:28 AM EDT): On Norvasc 5 mg daily Assessment & Plan (01/16/2025 7:41 AM EDT): On Norvasc 5 mg daily Assessment & Plan (01/15/2025 9:56 AM EDT): On Norvasc 5 mg daily Assessment & Plan (01/14/2025 2:24 PM EDT): On Norvasc 5 mg daily Assessment & Plan (01/13/2025 5:24 PM EDT): Resume Norvasc 5 mg daily Assessment & Plan (01/03/2025 12:19 PM EDT): Controlled on home meds Assessment & Plan (06/12/2024 4:04 PM EST): Continue Norvasc 5 mg daily Assessment & Plan (06/11/2024 8:46 AM EST): Continue Norvasc 5 mg daily Assessment & Plan (06/10/2024 1:59 PM EST): Continue Norvasc 5 mg daily Assessment & Plan (06/09/2024 1:47 PM EST): Continue Norvasc 5 mg daily Assessment & Plan (06/08/2024 4:24 PM EST): -On Norvasc 5 mg daily Assessment & Plan (06/07/2024 2:11 PM EST): -On Norvasc 5 mg daily Assessment & Plan (06/06/2024 12:33 PM EST): -On Norvasc 5 mg daily Assessment & Plan (06/05/2024 12:25 PM EST): -On Norvasc 5 mg daily Assessment & Plan (06/04/2024 1:02 PM EST): -On Norvasc 5 mg daily Assessment & Plan (06/03/2024 1:03 PM EST): -On Norvasc 5 mg daily Assessment & Plan (06/02/2024 11:31 AM EST): -On Norvasc 5 mg daily Assessment & Plan (06/01/2024 12:09 PM EST): -On Norvasc 5 mg daily Assessment & Plan (05/31/2024 3:57 PM EST): -On Norvasc 5 mg daily Assessment & Plan (05/30/2024 2:38 PM EST): On Norvasc 5 mg daily Assessment & Plan (05/29/2024 1:42 PM EST): Resume Norvasc 5 mg daily Herniation of intervertebral disc between L5 and S1 Type 2 diabetes mellitus, wi thout long-term current use of insulin Assessment & Plan (02/14/2025 1:46 PM EDT): - Updated A1c was 7.6. Sugars are acceptable on last check Hold oral home diabetic medications. Start sliding scale insulin. Monitor sugars, and titrate insulin to inpatient goal of 140-180. Insulin is a high risk medication. Assessment & Plan (02/13/2025 2:52 PM EDT): - Updated A1c was 7.6. Sugars are acceptable Hold oral home diabetic medications. Start sliding scale insulin. Monitor sugars, and titrate insulin to inpatient goal of 140-180. Insulin is a high risk medication. Assessment & Plan (02/12/2025 3:01 PM EDT): - Most recent A1c 6.8. This was 8 months ago. Update A1c Hold oral home diabetic medications. Start sliding scale insulin. Monitor sugars, and titrate insulin to inpatient goal of 140-180. Insulin is a high risk medication. Assessment & Plan (01/20/2025 9:02 AM EDT): Continue glipizide 5 mg daily. Continue insulin administration via insulin calculator Continue to hold metformin due to GRAZYNA Assessment & Plan (01/19/2025 1:33 PM EDT): Continue glipizide 5 mg daily. Continue insulin administration via insulin calculator Continue to hold metformin due to GRAZYNA Assessment & Plan (01/18/2025 4:15 PM EDT): Continue glipizide 5 mg daily. Continue insulin administration via insulin calculator Hold metformin due to GRAZYNA Assessment & Plan (01/17/2025 9:28 AM EDT): On metformin 500 mg twice daily and glipizide 5 mg daily. Continue insulin administration via insulin calculator Assessment & Plan (01/16/2025 7:41 AM EDT): On metformin 500 mg twice daily and glipizide 5 mg daily. Continue insulin administration via insulin calculator Assessment & Plan (01/15/2025 9:56 AM EDT): On metformin 500 mg twice daily and glipizide 5 mg daily. Continue insulin administration via insulin calculator Assessment & Plan (01/14/2025 2:24 PM EDT): On metformin 500 mg twice daily and glipizide 5 mg daily. Continue insulin administration via insulin calculator Assessment & Plan (01/13/2025 5:24 PM EDT): On metformin 500 mg twice daily and glipizide 5 mg daily. Start insulin administration via insulin calculator Assessment & Plan (06/12/2024 4:04 PM EST): Continue glucotrol 5 mg daily along with insulin sliding scale Assessment & Plan (06/11/2024 8:46 AM EST): Continue glucotrol 5 mg daily along with insulin sliding scale Assessment & Plan (06/10/2024 1:59 PM EST): Continue glucotrol 5 mg daily along with insulin sliding scale Assessment & Plan (06/09/2024 1:47 PM EST): Continue glucotrol 5 mg daily along with insulin sliding scale Assessment & Plan (06/08/2024 4:24 PM EST): -Continue glucotrol 5 mg daily along with insulin sliding scale Assessment & Plan (06/07/2024 2:11 PM EST): -Continue glucotrol 5 mg daily along with insulin sliding scale Assessment & Plan (06/06/2024 12:33 PM EST): -Continue glucotrol 5 mg daily along with insulin sliding scale Assessment & Plan (06/05/2024 12:25 PM EST): -Continue glucotrol 5 mg daily along with insulin sliding scale Assessment & Plan (06/04/2024 1:02 PM EST): -Continue glucotrol 5 mg daily along with insulin sliding scale Assessment & Plan (06/03/2024 1:23 PM EST): -Continue glucotrol 5 mg daily along with insulin sliding scale Assessment & Plan (06/02/2024 11:31 AM EST): -Continue Glucotrol 5 mg daily along with insulin sliding scale Assessment & Plan (06/01/2024 3:20 PM EST): -Continue Glucotrol 5 mg daily along with insulin sliding scale Assessment & Plan (05/31/2024 3:57 PM EST): -Continue Glucotrol 5 mg daily -Insulin sliding scale Assessment & Plan (05/30/2024 2:38 PM EST): Continue Glucotrol 5 mg daily Insulin sliding scale Assessment & Plan (05/29/2024 1:42 PM EST): Resume Glucotrol 5 mg daily Insulin sliding scale Assessment & Plan (04/12/2024 2:13 PM EDT): Insulin coverage here Anxiety Assessment & Plan (02/14/2025 1:46 PM EDT): - No acute issues reported Restart home medications as reconciled and as appropriate. Assessment & Plan (02/13/2025 2:52 PM EDT): - No acute issues reported Restart home medications as reconciled and as appropriate. Assessment & Plan (02/12/2025 3:01 PM EDT): - No acute issues reported Restart home medications as reconciled and as appropriate. Assessment & Plan (01/03/2025 12:19 PM EDT): Continue SSRI Resolved Problems Problem Noted Date Diagnosed Date Resolved Date Acute cystitis 12/15/2019 04/27/2020 At risk for sepsis 12/15/2019 0 Encounters Date Type Department Care Team Description 03/02/2025 7:56 AM EDT - 03/02/2025 11:59 PM EDT Hospital Encounter [facility] Referral Lab [address] [place], [place] [id number] Dioni Alvarez MD Discharge Disposition: Home or Self Care 03/02/2025 External Contact [facility] [address] [phone] Dioni Alvarez MD Chronic respiratory failure with hypoxia (HCC) (Primary Dx); Morbid obesity (HCC); Chronic hypoxemic respiratory failure (HCC) 03/01/2025 7:25 AM EDT - 03/01/2025 11:59 PM EDT Hospital Encounter [facility] Referral Lab [address] [place] [id number] Tali Carmona MD Discharge Disposition: Home or Self Care 03/01/2025 External Contact [facility] [address] [phone] Nicola Figueroa MD Chronic respiratory failure with hypoxia (HCC) (Primary Dx) 02/28/2025 8:11 AM EDT - 02/28/2025 11:59 PM EDT Hospital Encounter [facility] Referral Lab [address] [place] [address] Dioni Alvarez MD Discharge Disposition: Home or Self Care 02/28/2025 External Contact [facility] [place] [phone] Nicloa Figueroa MD Chronic respiratory failure with hypoxia (HCC) (Primary Dx) 02/27/2025 8:32 AM EDT - 02/27/2025 11:59 PM EDT [facility] Encounter [facility] [address] [place] [address] Dioni Alvarez MD Discharge Disposition: Home or Self Care 02/27/2025 External Contact [facility] [place] [phone] Dioni Alvarez MD Chronic respiratory failure with hypoxia (HCC) (Primary Dx); Morbid obesity (HCC); Chronic hypoxemic respiratory failure (HCC) 02/26/2025 7:14 AM EDT - 02/26/2025 11:59 PM EDT Hospital Encounter [facility] Referral Lab [address] [place] [address] Dioni Alvarez MD Discharge Disposition: Home or Self Care 02/26/2025 External Contact [facility] [address] [phone] Nicola Figueroa MD Chronic respiratory failure with hypoxia (HCC) (Primary Dx); GRAZYNA (acute kidney injury); CKD (chronic kidney disease) stage 2, GFR 60-89 ml/min; AURELIA (obstructive sleep apnea); Type 2 diabetes mellitus with diabetic polyneuropathy, without long-term current use of insulin (HCC) 02/25/2025 6:50 AM EDT - 02/25/2025 11:59 PM EDT Hospital Encounter [facility] Referral Lab [address] [place] [address] Tali Carmona MD Discharge Disposition: Home or Self Care 02/25/2025 External Contact [facility] [address] [phone] Dioni Alvarez MD Chronic respiratory failure with hypoxia (HCC) (Primary Dx); Morbid obesity (HCC); REYES (dyspnea on exertion) 02/24/2025 8:01 AM EDT - 02/24/2025 11:59 PM EDT Hospital Encounter [facility] Referral Lab [address] [place] [phone] Dioni Alvarez MD Discharge Disposition: Home or Self Care 02/24/2025 External Contact [facility] [place] [phone] Nicola Figueroa MD Chronic respiratory failure with hypoxia (HCC) (Primary Dx); Class 3 severe obesity with body mass index (BMI) greater than or equal to 70 in adult; Type 2 diabetes mellitus with diabetic polyneuropathy, without long-term current use of insulin (HCC); AURELIA (obstructive sleep apnea) 02/23/2025 7:50 AM EDT - 02/23/2025 11:59 PM EDT Hospital Encounter [facility] Referral Lab [address] [place] [phone] Dioni Alvarez MD Routine general medical examination at a health care facility (Primary Dx) Discharge Disposition: Home or Self Care 02/23/2025 External Contact [facility] [place] [phone] Dioni Alvarez MD Chronic respiratory failure with hypoxia (HCC) (Primary Dx); Morbid obesity (HCC) 02/22/2025 6:52 AM EDT - 02/22/2025 11:59 PM EDT Hospital Encounter [facility] Referral Lab [address] [place] [address] Tali Carmona MD Discharge Disposition: Home or Self Care 02/22/2025 External Contact [facility] [address] [phone] Nicola Figueroa MD Chronic respiratory failure with hypoxia (HCC) (Primary Dx); AURELIA (obstructive sleep apnea); SOB (shortness of breath); REYES (dyspnea on exertion) 02/21/2025 12:21 PM EDT - 02/21/2025 11:59 PM EDT Hospital Encounter [facility] Referral Lab [address] [place] [address] Nicola Figueroa MD Discharge Disposition: Home or Self Care 02/21/2025 8:19 AM EDT - 02/21/2025 12:20 PM EDT Hospital Encounter [facility] Referral Lab 1 [place] [address] Dioni Alvarez MD Discharge Disposition: Home or Self Care 02/21/2025 External Contact [facility] Pulmonology [facility] [address] [phone] Nicola Figueroa MD Chronic respiratory failure with hypoxia (HCC) (Primary Dx); REYES (dyspnea on exertion); Type 2 diabetes mellitus with diabetic polyneuropathy, without long-term current use of insulin (HCC); AURELIA (obstructive sleep apnea); Restless leg syndrome; Class 3 severe obesity with body mass index (BMI) greater than or equal to 70 in adult 02/20/2025 5:00 AM EDT - 02/20/2025 11:59 PM EDT Hospital Encounter [facility] Referral Lab 1 [place] [address] Dioni Alvarez MD Discharge Disposition: Home or Self Care 02/20/2025 External Contact [facility] [address] [place] [phone] Dioni Alvarez MD Chronic respiratory failure with hypoxia (HCC) (Primary Dx); Morbid obesity (HCC) 02/19/2025 5:00 AM EDT - 02/19/2025 11:59 PM EDT Hospital Encounter [facility] Referral Lab 1 [place] [address] Nicola Figueroa MD Discharge Disposition: Home or Self Care 02/19/2025 5:00 AM EDT Hospital Encounter [facility] Referral Lab 1 [place] [address] Dioni Alvarez MD 02/19/2025 External Contact [facility] [address] [phone] Dioni Alvarez MD Chronic hypoxemic respiratory failure (HCC) (Primary Dx); Morbid obesity (HCC); Chronic respiratory failure with hypoxia (HCC) 02/18/2025 10:23 AM EDT Anesthesia Event [facility] [address] [place] [address] Danya Rossi MD Heusner, James A, MD 02/18/2025 Travel 02/12/2025 1:19 AM EDT - 02/18/2025 7:10 PM EDT Hospital Encounter [facility] [address] [address] [place] [address] Tali Costello DO Cho, Soung H, MD Motiani, Karan, MD DOE (dyspnea on exertion) (Primary Dx); Chest pressure; Other iron deficiency anemia Discharge Disposition: Prison Facility 01/27/2025 Social Work [facility] [address] [place] [address] Yomaira Medina, NURSE OUTREACH CASE MANAGER 01/26/2025 7:45 AM EDT - 01/26/2025 11:59 PM EDT Hospital Encounter [facility] Referral Lab [address] [place] [phone] Nicola Figueroa MD Discharge Disposition: Home or Self Care 01/26/2025 External Contact [facility] Pul[facility] [address] [phone] Dioni Alvarez MD Chronic respiratory failure with hypoxia (HCC) (Primary Dx) 01/26/2025 Social Work [facility] [address] [place] [address] Yomaira Medina, NURSE OUTREACH CASE MANAGER 01/26/2025 Telephone [facility] [address] [place] [address] Minesh Vera MD 01/26/2025 Social Work [facility] [address] [place] [address] Yomaira Medina, NURSE OUTREACH CASE MANAGER 01/26/2025 Orders Only [facility] [address] [place] [address] Trinidad Siegel, Clerical Staff Iron deficiency anemia due to chronic blood loss (Primary Dx) 01/26/2025 Telephone [facility] [address] [place] [address] Minesh Vera MD 01/25/2025 8:57 AM EDT - 01/25/2025 11:59 PM EDT Hospital Encounter [facility] Referral Lab 1 [place] [address] Nicola Figueroa MD Discharge Disposition: Home or Self Care 01/25/2025 External Contact [facility] [address] [phone] Dioni Alvarez MD Morbid obesity (HCC) (Primary Dx); Chronic respiratory failure with hypoxia (HCC); Chronic hypoxemic respiratory failure (HCC) 01/24/2025 7:46 AM EDT - 01/24/2025 11:59 PM EDT Hospital Encounter [facility] Referral Lab 1 [place] [address] Nicola Figueroa MD Discharge Disposition: Home or Self Care 01/24/2025 External Contact [facility] [address] [place] [phone] Dioni Alvarez MD Morbid obesity (HCC) (Primary Dx); Class 3 severe obesity due to excess calories without serious comorbidity with body mass index (BMI) greater than or equal to 70 in adult; Tricompartment osteoarthritis of knees, bilateral; Chronic hypoxemic respiratory failure (HCC) 01/23/2025 5:00 AM EDT - 01/23/2025 11:59 PM EDT Hospital Encounter [facility] Referral Lab 1 [place] [address] Nicola Figueroa MD Discharge Disposition: Home or Self Care 01/23/2025 External Contact [facility] [address] [phone] Dioni Alvarez MD Morbid obesity (HCC) (Primary Dx); Class 3 severe obesity due to excess calories without serious comorbidity with body mass index (BMI) greater than or equal to 70 in adult; Tricompartment osteoarthritis of knees, bilateral; Chronic hypoxemic respiratory failure (HCC) 01/22/2025 5:00 AM EDT - 01/22/2025 11:59 PM EDT Hospital Encounter [facility] Referral Lab 1 [place] [address] Nicola Figueroa MD Discharge Disposition: Home or Self Care 01/22/2025 External Contact [facility] [address] [phone] Dioni Alvarez MD Pneumonia of right lower lobe due to infectious organism (Primary Dx); Morbid obesity (HCC); Chronic hypoxemic respiratory failure (HCC) 01/21/2025 5:00 AM EDT - 01/21/2025 11:59 PM EDT Hospital Encounter [facility] Referral Lab 1 [place] [address] Nicola Figueroa MD Discharge Disposition: Home or Self Care 01/21/2025 3:22 AM EDT Hospital Encounter [facility] Referral Lab 1 [place] [address] Nicola Figueroa MD 01/21/2025 External Contact [facility] [address] [phone] Nicola Figueroa MD Morbid obesity (HCC) (Primary Dx); Class 3 severe obesity due to excess calories without serious comorbidity with body mass index (BMI) greater than or equal to 70 in adult; Tricompartment osteoarthritis of knees, bilateral; AURELIA (obstructive sleep apnea); Primary osteoarthritis involving multiple joints; Falls; Pneumonia of right lower lobe due to infectious organism 01/13/2025 7:02 AM EDT - 01/20/2025 4:00 PM EDT Hospital Encounter [facility] [address] [place] [address] Marie Yarbrough MD Moise, Ephese, MD Pneumonia of right lower lobe due to infectious organism (Primary Dx); Abdominal wall cellulitis; Shortness of breath; Elevated troponin Discharge Disposition: Rehab Facility 01/13/2025 Travel 01/10/2025 Telephone [facility] [address] [place] [address] Minesh Vera MD 12/30/2024 2:53 PM EDT - 01/06/2025 6:09 PM EDT Hospital Encounter [facility] [address] [place] [address] Evin Samayoa MD Shanehsaz, Elham, MD Thrombosis of right saphenous vein (Primary Dx) Discharge Disposition: Home or Self Care from Last 3 Months Immunizations Immunization Administration Dates Next Due Pneumococcal Conjugate Vaccine 20 Valent 025() Surgical History Surgery Date Site/Laterality Comments SECTION BACK SURGERY ABDOMEN SURGERY lap band IR PICC INSERTION EQUAL OR > 5 YEARS 12/15/2019 IR PICC INSERTION EQUAL OR > 5 YEARS 12/15/2019 Evonne Jewell PA-C EDG IR UMBILICAL HERNIA REPAIR 07/07/2007 - 07/06/2008 IR IVC FILTER PLACEMENT Medical History Medical History Date Comments Diabetes mellitus (HCC) Hypertension Thyroid disease Anxiety Factor V Leiden Herniation of intervertebral disc between L5 and S1 Eczema AURELIA (obstructive sleep apnea) us es CPAP Anemia Chronic kidney disease CHF (congestive heart failure) (HCC) Pneumonia Cellulitis abdomen Family History Medical History Relation Name Comments Early Father Factor V Leiden Father Heart Attack Father Heart Attack Mother pt is suspiciou s about this, thinks clotting disorder Hypertension Mother Kidney Disease Mother Relation Name Status Comments Father Mother Social History Tobacco Use Types Packs/Day Years Used Date Smoking Tobacco: Never Smokeless Tobacco: Never Tobacco Cessation:Counseling Given: Yes Alcohol Use Standard Drinks/Week Comments Never 0 (1 standard drink = 0.6 oz pur e alcohol) [facility] Utilities Answer Date Recorded In the past 12 months has e Need Fixed, gas, oil, or water Eyewitness Surveillance threatened to shut off services in your [...] Date Recorded PHQ-2 Total Score 2 02/14/2025 [facility] - Occupational [...] money to get more. Never true 05/2025 [facility] IP Transportation Answer D ate Recorded [...] on file Sexual Orientation Not on file Obstetrics History Last Filed Vital Signs Vital Sign Reading [...] Mass Index 81.51 02/12/2025 5:09 AM EDT Plan of Treatment Health Maintenance Due Date Last Done Comments Cologuard 1980 FIT 1980 Sigmoidoscopy 1980 Virtual Colonography 1980 Wellness Exam Medicare 12/17/1983 Diabetic Eye Exam 1998 DTaP/TDaP/Td (1 - Tdap) 12/17/1999 Hepatitis B Vaccine (1 of 3 - 19+ 3-dose series) 12/17/1999 Pneumococcal Vaccine 0-49 (1 of 2 - PCV) 12/17/1999 Cervical Cancer Screening 2001 Pap Smear 2001 HPV/Pap Cotest 2010 Breast Cancer Screening 2020 Lipids 08/31/2021 08/31/2020, 12/15/2019 COVID-19 Vaccine ( season) 2025 10/06/2020, 09/08/2020 Influenza Vaccine (#1) 2025 05/07/2018 Hemoglobin A1c 08/15/2025 02/12/2025, 06/06, 04/14/2024, Additional history exists Colon Cancer Screening 02/16/2035 Colonoscopy 02/16/2035 02/18/2025 Meningococcal B Vaccine Aged Out No l onger eligible based on patient's age to complete this topic Procedures Procedure Name Priority Date/Time Associated Diagnosis Comments PT / INR Routine 03/02/2025 5:05 AM EDT PT / INR Routine 03/01/2025 5:05 AM EDT BASIC METABOLIC PANEL Routine 03/01/2025 5:05 AM EDT PT / INR Routine 02/28/2025 5:04 AM EDT IRON+TIBC Routine 02/27/2025 7:42 AM EDT PT / INR Routine 02/27/2025 7:42 AM EDT PT / INR Routine 02/26/2025 5:40 AM EDT PT / INR Routine 02/25/2025 5:03 AM EDT BASIC METABOLIC PANEL Routine 02/25/2025 5:03 AM EDT PT / INR Routine 02/24/2025 4:49 AM EDT VITAMIN B12 LEVEL Routine 02/23/2025 5:04 AM EDT [facility] VITAMIN D 25 HYDROXY Routine 02/23/2025 5:04 AM EDT Routine general medical examination at [facility] PT / INR Routine 02/23/2025 5:04 AM EDT Routine general medical examination at [facility] facility PT / INR Routine 02/22/2025 5:15 AM EDT BASIC METABOLIC PANEL Routine 02/22/2025 5:15 AM EDT PT / INR Today 02/21/2025 4:00 PM EDT PT / INR Routine 02/20/2025 7:18 AM EDT BASIC METABOLIC PANEL Routine 02/19/2025 6:45 AM EDT CBC WITH DIFF Routine 02/19/2025 6:45 AM EDT PT / INR Routine 02/19/2025 6:45 AM EDT GLUCOSE METER POC Routine 02/18/2025 5:15 PM EDT XR CHEST AP PORTABLE MADELINE 02/18/2025 3:18 PM EDT GLUCOSE METER POC Routine 02/18/2025 1:22 PM EDT EK EKG 12 LEAD STAT 02/18/2025 11:36 AM EDT COLONOSCOPY Routine 02/18/2025 11:18 AM EDT Other iron deficiency anemia ESOPHAGOGASTRODUODENOS COPY (EGD) Routine 02/18/2025 11:18 AM EDT Other iron deficiency anemia INTRAOP AIRWAY PLACEMENT Routine 02/18/2025 10:45 AM EDT GLUCOSE METER POC Routine 02/18/2025 8:20 AM EDT HUMAN CHORIONIC GONADOTROPIN QUANTITATIVE Routine 02/18/2025 7:05 AM EDT COMPREHENSIVE METABOLIC PANEL Timed 02/18/2025 7:05 AM EDT PT / INR Early AM 02/18/2025 7:05 AM EDT ECG AND WAVEFORMS [...] - TELEMETRY Routine 02/16/2025 7:32 AM EDT COMPREHENSIVE METABOLIC PANEL Timed 02/16/2025 6:40 AM EDT PT / INR Early AM 02/16/2025 6:40 AM EDT GLUCOSE METER POC [...] - TELEMETRY Routine 02/14/2025 7:03 AM EDT FERRITIN Add-On 02/14/2025 6:54 AM EDT IRON+TIBC Routine 02/14/2025 6:54 AM EDT CBC Early AM 02/14/2025 6:54 AM EDT COMPREHENSIVE METABOLIC PANEL Timed 02/14/2025 6:54 AM EDT PT / INR Early AM 02/14/2025 6:54 AM EDT GLUCOSE METER POC [...] CBC Early AM 02/13/2025 6:24 AM EDT COMPREHENSIVE METABOLIC PANEL Timed 02/13/2025 6:24 AM EDT PT / INR Early AM 02/13/2025 6:24 AM EDT GLUCOSE METER POC Routine 02/12/2025 9:06 PM EDT ECG AND WAVEFORMS - TELEMETRY Routine 02/12/2025 7:38 PM EDT GLUCOSE METER POC Routine 02/12/2025 5:18 PM EDT GLUCOSE METER POC Routine 02/12/2025 12:46 PM EDT EC ECHOCARDIOGRAM 2D M MODE COMPLETE W CONTRAST Routine 02/12/2025 12:39 PM EDT ECG AND WAVEFORMS - TELEMETRY Routine 02/12/2025 11:41 AM EDT HEMOGLOBIN A1C Routine 02/12/2025 9:35 AM EDT CBC Early AM 02/12/2025 9:35 AM EDT COMPREHENSIVE METABOLIC PANEL Timed 02/12/2025 9:35 AM EDT IP CONSULT TO CARDIOLOGY Routine 02/12/2025 9:16 AM EDT Procedure Note - Mustapha Piper MD - 02/12/2025 9:39 AM EDTThis note is in progress. Cardiology Consultation Note [facility] Attending Physician: Benoit Alvarez MD Requesting Physician: Referral,Self Chief Complaint: Chief Complaint Patient presents with Shortness of Breath SOB currently on Neb with Duoneb and albuterol. Being treated HPI: Evangelist Nettles is a 44 y.o. year old female with a past medical history ofHTN, HLD, DM, chronic lymphedema, AURELIA, Factor V Leiden, PE, fatty liver,back pain, GERD, thyroid disease, anemia, anxiety who presented on02/12/2025 with shortness of breath and chest pain. Cardiology is consultedon 02/12/25 for chest pain. Discharged from hospital to [facility] after PNA and cellulitis. Breathinggot better [...] true Transportation Needs: No Transportation Needs (01/14/2025) [facility] IP Transportation In the past 12 months, has lack of reliable transportation kept you frommedical appointments, meetings, work or from getting things needed fordaily living?: No Physical Activity: Inactive (01/14/2025) Exercise Vital Sign Days of Exercise per Week: 0 days Minutes of Exercise per Session: 0 min Stress: No Stress Concern Present (01/14/2025) [facility] - Occupational StressQuestionnaire Feeling [...] acid 1 mg Oral Daily Insulin Calculator ([employer]) - FSBS (Correction Only) Input 1 EachMISCELLANEOUS [...] lymphedema Hypertension Hyperlipidemia Diabetes Family history of [place] ASSESSMENT AND PLAN: Evangelist Nettles is a 44 y.o. year old [...] me with any questions Mustapha Piper MD [facility] 02/12/2025 IP CONSULT TO PHARMACY Routine 9:15 AM EDT GLUCOSE METER POC Routine 02/12/2025 8:[address] CHEST WO CONTRAST STAT 02/12/2025 7:49 AM EDT ECG AND WAVEFORMS - TELEMETRY Routine 02/12/2025 7:00 AM EDT ECG AND WAVEFORMS - TELEMETRY Routine 02/12/2025 6:17 AM EDT IP CONSULT TO WOUND CARE Routine 02/12/2025 5:47 AM EDT Procedure Note - Bernie [...] not treat cellulitis. Secure chat message sent Chandana III, haylee RN signed in on treatment team, [...] SENSITIVITY 2HR Timed 02/12/2025 4:08 AM EDT NT PROBNP Add-On 02/12/2025 2:21 AM EDT BASIC METABOLIC PANEL STAT 02/12/2025 2:21 AM EDT TROPONIN-T HIGH SENSITIVITY BASELINE W/ REFLEX STAT 02/12/2025 2:21 AM EDT BLOOD GAS, VENOUS STAT 02/12/2025 2:21 AM EDT PT / INR STAT 02/12/2025 2:21 AM EDT CBC WITH DIFF STAT 02/12/2025 2:21 AM EDT XR CHEST AP PORTABLE MADELINE 02/12/2025 1:53 AM EDT EK EKG 12 LEAD STAT 02/12/2025 1:37 AM EDT PT / INR Routine 01/26/2025 5:20 AM EDT PT / INR Routine 01/25/2025 5:29 AM EDT PT / INR Routine 01/24/2025 6:16 AM EDT PT / INR Routine 01/23/2025 7:30 AM EDT PT / INR Routine 01/22/2025 6:49 AM EDT PT / INR Today 01/21/2025 5:17 AM EDT BASIC METABOLIC PANEL Routine 01/21/2025 5:17 AM EDT CBC WITH DIFF Routine 01/21/2025 5:17 AM EDT GLUCOSE METER POC Routine 01/20/2025 1:23 PM EDT GLUCOSE METER POC Routine 01/20/2025 8:06 AM EDT BASIC METABOLIC PANEL Early AM 01/20/2025 7:36 AM EDT PT / INR Early AM 01/20/2025 7:36 AM EDT EXTRA LAVENDER Routine 01/20/2025 7:35 AM EDT EXTRA TUBES PANEL Routine 01/20/2025 7:35 AM EDT GLUCOSE METER POC Routine 01/19/2025 8:22 PM EDT ECG AND WAVEFORMS - TELEMETRY Routine 01/19/2025 6:59 PM EDT GLUCOSE METER POC Routine 01/19/2025 5:19 PM EDT GLUCOSE METER POC Routine 01/19/2025 1:47 PM EDT GLUCOSE METER POC Routine 01/19/2025 8:12 AM EDT ECG AND WAVEFORMS - TELEMETRY Routine 01/19/2025 7:32 AM EDT EXTRA LAVENDER Routine 01/19/2025 6:28 AM EDT EXTRA TUBES PANEL Routine 01/19/2025 6:28 AM EDT BASIC METABOLIC PANEL Early AM 01/19/2025 6:28 AM EDT PT / INR Early AM 01/19/2025 6:28 AM EDT GLUCOSE METER POC Routine 01/18/2025 9:38 PM EDT ECG AND WAVEFORMS - TELEMETRY Routine 01/18/2025 8:58 PM EDT GLUCOSE METER POC Routine 01/18/2025 6:01 PM EDT GLUCOSE METER POC Routine 01/18/2025 12:54 PM EDT GLUCOSE METER POC Routine 01/18/2025 9:22 AM EDT ECG AND WAVEFORMS - TELEMETRY Routine 01/18/2025 7:00 AM EDT CBC Add-On 01/18/2025 6:25 AM EDT BASIC METABOLIC PANEL Add-On 01/18/2025 6:25 AM EDT EXTRA MINT GREEN LI Routine 01/18/2025 6:25 AM EDT EXTRA LAVENDER Routine 01/18/2025 6:25 AM EDT EXTRA TUBES PANEL Routine 01/18/2025 6:25 AM EDT PT / INR Early AM 01/18/2025 6:25 AM EDT GLUCOSE METER POC Routine 01/17/2025 9:06 PM EDT ECG AND WAVEFORMS - TELEMETRY Routine 01/17/2025 8:39 PM EDT GLUCOSE METER POC Routine 01/17/2025 5:57 PM EDT VANCOMYCIN LEVEL AUC2 MADELINE 01/17/2025 2:24 PM EDT GLUCOSE METER POC Routine 01/17/2025 1:41 PM EDT GLUCOSE METER POC Routine 01/17/2025 8:48 AM EDT ECG AND WAVEFORMS - TELEMETRY Routine 01/17/2025 7:32 AM EDT VANCOMYCIN LEVEL AUC1 Early AM 01/17/2025 7:20 AM EDT BASIC METABOLIC PANEL MADELINE 01/17/2025 7:20 AM EDT EXTRA MINT GREEN LI Routine 01/17/2025 6:18 AM EDT EXTRA LAVENDER Routine 01/17/2025 6:18 AM EDT EXTRA TUBES PANEL Routine 01/17/2025 6:18 AM EDT PT / INR Early AM 01/17/2025 6:18 AM EDT GLUCOSE METER POC Routine 01/16/2025 9:25 PM EDT ECG AND WAVEFORMS - TELEMETRY Routine 01/16/2025 7:05 PM EDT GLUCOSE METER POC Routine 01/16/2025 6:05 PM EDT GLUCOSE METER POC Routine 01/16/2025 12:21 PM EDT GLUCOSE METER POC Routine 01/16/2025 8:29 AM EDT ECG AND WAVEFORMS - TELEMETRY Routine 01/16/2025 7:31 AM EDT CBC WITH DIFF Early AM 01/16/2025 4:42 AM EDT PT / INR Early AM 01/16/2025 4:42 AM EDT BASIC METABOLIC PANEL Early AM 01/16/2025 4:42 AM EDT GLUCOSE METER POC Routine 01/15/2025 9:22 PM EDT ECG AND WAVEFORMS - TELEMETRY Routine 01/15/2025 6:57 PM EDT GLUCOSE METER POC Routine 01/15/2025 6:19 PM EDT VANCOMYCIN LEVEL AUC2 Timed 01/15/2025 1:23 PM EDT GLUCOSE METER POC Routine 01/15/2025 12:39 PM EDT ECG AND WAVEFORMS - TELEMETRY Routine 01/15/2025 9:30 AM EDT ECG AND WAVEFORMS - TELEMETRY Routine 01/15/2025 8:24 AM EDT GLUCOSE METER POC Routine 01/15/2025 7:57 AM EDT VANCOMYCIN LEVEL AUC1 Timed 01/15/2025 6:39 AM EDT CBC WITH DIFF Early AM 01/15/2025 6:39 AM EDT PT / INR Early AM 01/15/2025 6:39 AM EDT BASIC METABOLIC PANEL Early AM 01/15/2025 6:39 AM EDT GLUCOSE METER POC Routine 01/15/2025 12:17 AM EDT ECG AND WAVEFORMS - TELEMETRY Routine 01/14/2025 7:08 PM EDT VANCOMYCIN LEVEL AUC2 Timed 01/14/2025 6:35 PM EDT GLUCOSE METER POC Routine 01/14/2025 5:55 PM EDT VANCOMYCIN LEVEL AUC1 Timed 01/14/2025 1:46 PM EDT GLUCOSE METER POC Routine 01/14/2025 12:52 PM EDT SCANNED EKG 01/14/2025 9:59 AM EDT GLUCOSE METER POC Routine 01/14/2025 9:23 AM EDT ECG AND WAVEFORMS - TELEMETRY Routine 01/14/2025 7:00 AM EDT CBC WITH DIFF Early AM 01/14/2025 6:41 AM EDT PT / INR Early AM 01/14/2025 6:41 AM EDT BASIC METABOLIC PANEL Early AM 01/14/2025 6:41 AM EDT GLUCOSE METER POC Routine 01/13/2025 10:24 PM EDT GLUCOSE METER POC Routine 01/13/2025 7:28 PM EDT ECG AND WAVEFORMS - TELEMETRY Routine 01/13/2025 7:00 PM EDT STAPHYLOCOCCUS AUREUS SCREEN Routine 01/13/2025 5:36 PM EDT GLUCOSE METER POC Routine 01/13/2025 3:10 PM EDT ECG AND WAVEFORMS - TELEMETRY Routine 01/13/2025 1:31 PM EDT ADMIT STAT 01/13/2025 10:12 AM EDT BLOOD GAS, VENOUS STAT 01/13/2025 9:59 AM EDT BLOOD CULTURE (NO STAIN) STAT 01/13/2025 9:59 AM EDT PROCALCITONIN STAT 01/13/2025 9:45 AM EDT TROPONIN-T HIGH SENSITIVITY 2HR Timed 01/13/2025 9:45 AM EDT BLOOD CULTURE (NO STAIN) STAT 01/13/2025 9:45 AM EDT IP CONSULT TO PHARMACY STAT 9:[address] ANGIOGRAM PULMONARY W CONTRAST STAT 01/13/2025 8:15 AM EDT RSIE-DVF2-FDA A/B Routine 01/13/2025 7:30 AM EDT LACTIC ACID STAT 01/13/2025 7:25 AM EDT PT / INR STAT 01/13/2025 7:14 AM EDT HUMAN CHORIONIC GONADOTROPIN QUANTITATIVE STAT 01/13/2025 7:14 AM EDT TROPONIN-T HIGH SENSITIVITY BASELINE W/ REFLEX STAT 01/13/2025 7:14 AM EDT NT PROBNP STAT 01/13/2025 7:14 AM EDT BASIC METABOLIC PANEL STAT 01/13/2025 7:14 AM EDT CBC WITH DIFF STAT 01/13/2025 7:14 AM EDT EK EKG 12 LEAD STAT 01/13/2025 7:06 AM EDT GLUCOSE METER POC Routine 01/06/2025 12:23 PM EDT HEPARIN ANTI-XA, UNF Early AM 01/06/2025 8:24 AM EDT CBC Timed 01/06/2025 8:24 AM EDT PT / INR Early AM 01/06/2025 8:24 AM EDT GLUCOSE METER POC Routine 01/06/2025 8:20 AM EDT GLUCOSE METER POC Routine 01/05/2025 7:58 PM EDT GLUCOSE METER POC Routine 01/05/2025 4:52 PM EDT GLUCOSE METER POC Routine 01/05/2025 1:06 PM EDT GLUCOSE METER POC Routine 01/05/2025 9:06 AM EDT HEPARIN ANTI-XA, UNF Early AM 01/05/2025 5:59 AM EDT PT / INR Early AM 01/05/2025 5:59 AM EDT HEPARIN ANTI-XA, UNF Timed 01/05/2025 12:37 AM EDT GLUCOSE METER POC Routine 01/04/2025 9:19 PM EDT GLUCOSE METER POC Routine 01/04/2025 6:21 PM EDT HEPARIN ANTI-XA, UNF Timed 01/04/2025 6:10 PM EDT GLUCOSE METER POC Routine 01/04/2025 12:50 PM EDT GLUCOSE METER POC Routine 01/04/2025 11:26 AM EDT GLUCOSE METER POC Routine 01/04/2025 9:11 AM EDT HEPARIN ANTI-XA, UNF Timed 01/04/2025 8:33 AM EDT CBC Timed 01/04/2025 8:33 AM EDT PT / INR Early AM 01/04/2025 8:33 AM EDT GLUCOSE METER POC Routine 01/03/2025 8:50 PM EDT GLUCOSE METER POC Routine 01/03/2025 5:24 PM EDT GLUCOSE METER POC Routine 01/03/2025 12:07 PM EDT GLUCOSE METER POC Routine 01/03/2025 7:31 AM EDT HEPARIN ANTI-XA, UNF Early AM 01/03/2025 5:46 AM EDT PT / INR Early AM 01/03/2025 5:46 AM EDT GLUCOSE METER POC Routine 01/02/2025 9:41 PM EDT GLUCOSE METER POC Routine 01/02/2025 6:01 PM EDT GLUCOSE METER POC Routine 01/02/2025 1:06 PM EDT GLUCOSE METER POC Routine 01/02/2025 8:40 AM EDT BASIC METABOLIC PANEL Early AM 01/02/2025 3:17 AM EDT CBC WITH DIFF Early AM 01/02/2025 3:17 AM EDT PT / INR Early AM 01/02/2025 3:17 AM EDT HEPARIN ANTI-XA, UNF Timed 01/02/2025 3:17 AM EDT HEPARIN ANTI-XA, UNF Timed 01/01/2025 8:54 PM EDT GLUCOSE METER POC Routine 01/01/2025 8:10 PM EDT GLUCOSE METER POC Routine 01/01/2025 5:10 PM EDT GLUCOSE METER POC Routine 01/01/2025 1:27 PM EDT US NON-OB TRANSVAGINAL MADELINE 1:13 PM EDT HEPARIN ANTI-XA, UNF Timed 01/01/2025 12:12 PM EDT IP CONSULT TO PODIATRY Routine 9:00 AM EDT Procedure Note - Minesh Del Cid DPM - 01/02/2025 9:20 AM EDTThis note is in progress. Name: Evangelist Nettles Inpatient consult to Podiatry Consult performed by: Minesh Del Cid DPM Consult ordered by: Catalina Verma MD Reason for consult: left foot callus Assessment/Recommendations: A: plantar keratosis left center midfoot Plan: bedside debride tomorrow No WB restrictions from the left foot standpoint PCP:Miguel Angel Ohara MD Past Medical History: Diagnosis Date Anemia Anxiety [...] Jewell PA-C [facility] IR UMBILICAL HERNIA REPAIR 2008 Family History Problem Relation Age of Onset [...] true Transportation Needs: No Transportation Needs (12/30/2024) [facility] IP Transportation In the past 12 months, has lack of reliable transportation kept you frommedical appointments, meetings, work or from getting things needed fordaily living?: No Physical Activity: Inactive (12/30/2024) Exercise Vital Sign Days of Exercise per Week: 0 days Minutes of Exercise per Session: 0 min Stress: No Stress Concern Present (12/30/2024) [employer] [place] [employer] - Occupational StressQuestionnaire Feeling of Stress : Only a little Received from [facility] Family and Community Support Received from [facility] Abuse Screen Received from [facility] Housing Stability ROS Vitals: 12/31/24 2121 01/01/25 0915 01/01/259 01/01/25 2333 BP: 142/66 142/52 BP Location: Right arm Right arm Patient Position: Sitting Sitting Pulse: 75 75 75 76 Resp: 20 18 Temp: 98.2 F (36.8 C) 97.7 F (36.5 C) TempSrc: Oral Oral SpO2: 95% 100% 98% 97% Weight: Height: Physical Exam Reviewed admission H&P Pulses difficult to palpate secondary to edema, body habitus Well circumscribed hyperkeratosis let forefoot central Tender with pressure Lab and radiographic data reviewed. Thank you for asking me to participate in your patient's care. Minesh Del Cid DPM 01/02/2025 GLUCOSE METER POC Routine 01/01/2025 8:37 AM EDT BASIC METABOLIC PANEL Early AM 01/01/2025 7:15 AM EDT ALBUMIN LEVEL Early AM 01/01/2025 7:15 AM EDT PROLACTIN LEVEL Timed 01/01/2025 6:13 AM EDT TSH REFLEX TO FT4 Timed 01/01/2025 6:13 AM EDT ESTRADIOL LEVEL Timed 01/01/2025 6:13 AM EDT FOLLICLE STIMULATING HORMONE LEVEL Timed 01/01/2025 6:13 AM EDT HEPARIN ANTI-XA, UNF Timed 01/01/2025 6:13 AM EDT FACTOR V LEIDEN MUTATION-REF LAB Early AM 01/01/2025 6:13 AM EDT CBC WITH DIFF Early AM 01/01/2025 6:13 AM EDT PT / INR Early AM 01/01/2025 6:13 AM EDT HEPARIN ANTI-XA, UNF Timed 12/31/2024 10:02 PM EDT GLUCOSE METER POC Routine 12/31/2024 8:24 PM EDT GLUCOSE METER POC Routine 12/31/2024 5:31 PM EDT ADMIT Routine 12/31/2024 4:35 PM EDT GLUCOSE METER POC Routine 12/31/2024 1:37 PM EDT GLUCOSE METER POC Routine 12/31/2024 8:55 AM EDT PT / INR Routine 12/31/2024 6:53 AM EDT HEPARIN ANTI-XA, UNF Timed 12/31/2024 6:53 AM EDT MAGNESIUM LEVEL Early AM 12/31/2024 6:53 AM EDT BASIC METABOLIC PANEL Early AM 12/31/2024 6:53 AM EDT CBC WITH DIFF Early AM 12/31/2024 6:53 AM EDT HEPARIN ANTI-XA, UNF Timed 12/31/2024 1:04 AM EDT GLUCOSE METER POC Routine 12/30/2024 8:56 PM EDT IP CONSULT TO MEDICAL ONCOLOGY & HEMATOLOGY Routine 12/30/2024 6:54 PM EDT Procedure Note - Minesh Vera MD - 12/31/2024 6:58 PM EDTThis note is in progress. Images from the original note were not included. INITIAL CONSULTATION: Consulting requested by: DVT Primary Oncologist: No primary care provider on file. Primary Care Physician: Miguel Angel Ohara MD Chief complaint: Chief Complaint Patient presents with Leg Swelling stating that her right leg is swollen and worse over the last few days.Right leg is painful with movement. Hx of blood clots and PE Reason for consultation: DVT HISTORY OF PRESENT ILLNESS: Evangelist Nettles is a 44 y.o. female who is admitted for work-up andtreatment for DVT. Patient notably has a history of Factor V Leiden withextensive hx of VTE dating back since 2003. She is on lifelong coumadin.She reports holding her coumadin 5 days with her most recent period givenmenorrhagia. She was told she can't be on OCPs with her Factor V Leiden.She states she previously was not having periods last year and thenrecently started having them again with 2 months of heavy menstrualperiods. She has not seen a rn home care in years she states. PAST HISTORY: Past Medical History: Diagnosis Date Anemia Anxiety Chronic kidney disease Diabetes mellitus (HCC) Eczema Factor V Leiden Herniation of intervertebral disc between L5 and S1 Hypertension AURELIA (obstructive sleep apnea) uses CPAP Thyroid disease Current Facility-Administered Medications Medication Dose Route Frequency Last Rate Last Admin albuterol (PROVENTIL HFA;VENTOLIN HFA) inhaler 2 Puff 2 Puff InhalationPRN Or albuterol (PROVENTIL) nebulizer solution 2.5 mg 2.5 mg Nebulization PRN amLODIPine (NORVASC) tablet 5 mg 5 mg Oral Daily 5 mg at 12/31/24 0839 atorvastatin (LIPITOR) tablet 40 mg 40 mg Oral Nightly 40 mg at12/30/242140 dextrose 50 % solution 25 mL 25 mL Intravenous PRN famotidine (PEPCID) tablet 40 mg 40 mg Oral Nightly 40 mg at 140 FLUoxetine (PROzac) capsule 60 mg 60 mg Oral Nightly 60 mg at folic acid (FOLVITE) tablet 1 mg 1 mg Oral Daily 1 mg at 12/31/24 0840 fUROsemide (LASix) tablet 20 mg 20 mg Oral *Q12H 20 mg at 2 glucagon (GLUCAGEN) injection 1 mg 1 mg Intramuscular PRN And sterile water injection 1 mL 1 mL Injection PRN heparin 25,000 units in 250 mL 0.45% NaCl 1,900 Units/hr IntravenousContinuous 19 mL/hr at 12/31/24 1410 1,900 Units/hr at 12/31/24 1410 Insulin Calculator ([employer]) - FSBS (Correction Only) Input 1 EachMISCELLANEOUS QID WM And insulin aspart U-100 (NovoLOG) injection 0-40 Units 0-40 UnitsSubcutaneous QID WM 1 Units at 12/31/24 1848 LEVOthyroxine (SYNTHROID) tablet 75 mcg 75 mcg Oral DAILY EARLY AM 75mcg at 12/31/24 0632 miconazole (MICATIN) 2 % powder Topical 2 times per day Given at12/31/24 0840 miconazole (MICATIN) 2 % powder Topical PRN mirabegron (MYRBETRIQ) ER tablet 50 mg 50 mg Oral Daily 50 mg at12/31/24 0841 oxyCODONE (OxyCONTIN) CR tablet 30 mg 30 mg Oral BID 30 mg at propranoloL (INDERAL) tablet 20 mg 20 mg Oral BID 20 mg at 841 QUEtiapine (SEROquel) tablet 100 mg 100 mg Oral BID 100 mg at rOPINIRole (REQUIP) tablet 0.5 mg 0.5 mg Oral TID 0.5 mg at tiZANidine (ZANAFLEX) tablet 8 mg 8 mg Oral Nightly 8 mg at traMADoL (ULTRAM) tablet 50-100 mg 50-100 mg Oral QID 50 mg at12/31/24 1835 No Known Allergies Past Surgical History: Procedure Laterality Date ABDOMEN SURGERY lap band BACK SURGERY SECTION IR IVC FILTER PLACEMENT IR PICC INSERTION EQUAL OR > 5 YEARS 12/15/2019 IR PICC INSERTION EQUAL OR > 5 YEARS 12/15/2019 Evonne Jewell PA-C EDG IR UMBILICAL HERNIA REPAIR 2007 Family History Problem Relation Age of Onset [...] true Transportation Needs: No Transportation Needs (12/30/2024) [facility] IP Transportation In the past 12 months, has lack of reliable transportation kept you frommedical appointments, meetings, work or from getting things needed fordaily living?: No Physical Activity: Inactive (12/30/2024) Exercise Vital Sign Days of Exercise per Week: 0 days Minutes of Exercise per Session: 0 min Stress: No Stress Concern Present (12/30/2024) [employer] [place] [employer] - Occupational StressQuestionnaire Feeling of Stress : Only a little Received from [facility] Family and Community Support Received from [facility] Abuse Screen Received from [facility] Housing Stability PHYSICAL EXAM: Patient Vitals for the past 24 hrs: BP Temp Temp src Pulse Resp SpO2 Weight 12/31/24 0836 124/46 97.7 F (36.5 C) Oral 69 16 98 % -- 12/31/24 0000 -- -- -- -- -- 95 % -- 12/30/242044 -- -- -- -- -- -- (!) 509 lb 9.6 oz (231.2 kg) 12/30/242034 153/75 97.7 F (36.5 C) Oral 72 18 100 % -- Wt Readings from Last 3 Encounters: 12/30/24 (!) 509 lb 9.6 oz (231.2 kg) 05/28/24 (!) 453 lb (205.5 kg) 04/11/24 (!) 460 lb 15.7 oz (209.1 kg) General:Patient morbidly obese, 3+ edema in legs, R > L, pain to palpationof left upper thigh/leg LABS: Lab Results Component Value Date WBC 7.7 12/31/2024 HGB 8.9 (L) 12/31/2024 HCT 29.7 (L) 12/31/2024 MCV 73.2 (L) 12/31/2024 PLT 241 12/31/2024 CMP Lab Results Component Value Date GLU 154 (H) 12/31/2024 CALCIUM 7.8 (L) 12/31/2024 ALBUMIN 2.7 (L) 05/30/2024 PROT 6.4 05/30/2024 NA 134 (L) 12/31/2024 K 4.3 12/31/2024 CO2 22 12/31/2024 CL 104 12/31/2024 BUN 11 12/31/2024 CREATININE 0.96 12/31/2024 ALKPHOS 115 05/30/2024 ALT 10 05/30/2024 AST 16 05/30/2024 LABBILI 0.8 05/30/2024 IMAGING: Reviewed: No results found. ASSESSMENT AND PLAN: Patient is a 44 year old female with a history of Factor V Leiden Mutation(unclear if heterozygous or homozygous) and Morbid Obesity who is hereregarding acute DVT. Factor V Leiden Mutation Acute Superficial Venous Thrombosis Patient with known hx of Factor V Leiden Mutation and FMHx of Father whodied at 33 presumably per patient thought to be from DVT/PE after surgeryand unclear if he had Factor V or not. We do not know whether isheterozygous or homozygous as previously hematology consultations or notesdo not document this. Risk is significantly higher in those homozygous- soretesting to clarify this. She also is morbidly obese and has extensivebaseline 3+ edema in legs which has worsened when she stoppedanticoagulation given heavy menorrhagia which she previously stoppedhaving periods over a year ago and unclear why. Has not seen gynecologyand told she cannot go on OCPs but discussed with her that she needsworkup for menorrhagia and PCOS in setting of her morbid obesity and howto control her menorrhagia as she developed this clot in acute occludingsuperficial venous thrombosis in right sapheno-femoral junction but noDVT. She has significant risk of this turning into DVT with her riskfactors that agree with heparin gtt and restarting anticoagulation. Shediscussed she cannot afford lovenox shots and I stated then we would needto bridge her here on coumadin as inpatient which would take 5 days. [facility] pharmacy assist with this. She also states transportation is barrierwith her weight as well that she prefers to have discussion withgynecology as inpatient for menorrhagia workup/management or virtualvisit. She is at significant risk of VTE off anticoagulation that thisneeds to be sorted out prior to discharge. Will follow peripherally Minesh Vera MD Hematology/Oncology IP CONSULT TO SOCIAL WORK Routine 12/30/2024 6:36 PM EDT ADMIT Routine 12/30/2024 6:12 PM EDT HUMAN CHORIONIC GONADOTROPIN QUANTITATIVE STAT 12/30/2024 5:11 PM EDT PT / INR STAT 12/30/2024 5:11 PM EDT BASIC METABOLIC PANEL STAT 12/30/2024 5:11 PM EDT CBC WITH DIFF STAT 12/30/2024 5:11 PM EDT VA US LOWER EXTREMITY VENOUS RIGHT STAT 12/30/2024 3:56 PM EDT LIPID PANEL REFLEX Callback 08/31/2020 2:21 PM EST Myxedema heart disease Pure hypercholesterolemia from Last 3 Months or Most Recently Relevant to Health Maintenance Results * (ABNORMAL) PT / INR (03/02/2025 5:05 AM EDT) Only the most recent of41 resultswithin the time period is included. PT 29.7(H) 10.5 - 13.6 second(s) 03/02/2025 8:30 AM EDT [facility] INR 2.53(H) 0.91 - 1.18 (ratio) 03/02/2025 8:30 AM EDT [facility] Comment: Level of Therapy Indications Target INR Range Standard Dose Treatment and prophylaxis of venous 2.0 - 3.0 thrombosis, pulmonary embolism High Dose High risk patients with mechanical 2.5 - 3.5 heart valves Blood VENOUS BLOOD / Unknown Venipuncture / Unknown 03/02/2025 5:05 AM EDT 03/02/2025 7:57 AM EDT Dioni Alvarez MD HEMATOLOGY ORDERABLES Final Re sult [facility] [address] [facility] , [place] [address] * (ABNORMAL) BASIC METABOLIC PANEL (03/01/2025 5:05 AM EDT) Only the most recent of18 resultswithin the time period is included. Sodium 135(L) 136 - 145 mmol/L 03/01/2025 8:17 AM EDT [facility] Potassium 4.8 3.5 - 5.0 mmol/L 03/01/2025 8:17 AM EDT [facility] Chloride 100 98 - 107 mmol/L 03/01/2025 8:17 AM EDT [facility] Total CO2 23 22 - 29 mmol/L 03/01/2025 8:17 AM EDT [facility] Anion Gap 12 7 - 16 mmol/L 03/01/2025 8:[address] [facility] Calcium 8.1(L) 8.6 - 10.4 mg/dL 03/01/2025 8:[address] [facility] Glucose Lvl 132(H) 70 - 99 mg/dL 03/01/2025 8:[address] [facility] BUN 20 6 - 20 mg/dL 03/01/2025 8:[address] [facility] Creatinine 1.24 0.51 - 1.30 mg/dL 03/01/2025 8:[address] [facility] eGFR (CKD-EPIcr 2020) 55(L) >=60 mL/min/1.7 3 m2 03/01/2025 8:[address] [facility] Comment:Estimated GFR was ca lculated using the CKD-EPIcr (2020) equation refit without race. The equation is recommended by the National Kidney Foundation - [place] [employer] Nephrology Task Force. Blood VENOUS BLOOD / Unknown Venipuncture / Unknown 03/01/2025 5:05 AM EDT 03/01/2025 7:25 AM EDT us Tali Carmona MD CHEMISTRY ORDERABLES Final R esult [facility], [facility] [address] [facility] [facility] [address] , [place] [address] * (ABNORMAL) IRON+TIBC (02/27/2025 7:42 AM EDT) Only the most recent of2 resultswithin the time period is included. Iron 30 30 - 160 mcg/dL 02/27/2025 9:15 AM EDT [facility], [facility] Transferrin 244 200 - 360 mg/dL 02/27/2025 9:15 AM EDT [facility] Transferrin Saturation 9(L) 20 - 50 % 02/27/2025 9:15 AM EDT [facility] TIBC 342 250 - 400 mcg/dL 02/27/2025 9:[address] Blood VENOUS BLOOD / Unknown Venipuncture / Unknown 02/27/2025 7:42 AM EDT 02/27/2025 8:33 AM EDT Dioni Alvarez MD CHEMISTRY ORDERABLES Final Res ult Performing Organization Address [facility] de Phone Number [facility] [address] [facility] [address] , [place] [address] * (ABNORMAL) VITAMIN D 25 HYDROXY (02/23/2025 5:04 AM EDT) Vit D 25 OH 10.4(L) 30.0 - 150.0 ng/mL 02/23/2025 10:28 AM EDT [facility] Comment: Preferred: >= 30 ng/mL Insufficient: 21-29 [...] ORDERABLES Final Res ult Performing Organization Address [facility] de Phone Number [facility] [address] [place] [address] , [place] [address] * VITAMIN B12 LEVEL (02/23/2025 5:04 AM EDT) Vitamin B12 409 232 - 1,245 pg/mL 02/23/2025 10:28 AM EDT [facility] Blood VENOUS BLOOD / Unknown Venipuncture / Unknown 02/23/2025 5:04 AM EDT 02/23/2025 8:02 AM EDT Narrative [facility] - 02/23/2025 10:28 AM EDT Ingestion of tom doses of biotin (>5 mg/day) taken within 8 hours of drawing blood sample can interfere with this immunoassay test. us Dioni Alvarez MD CHEMISTRY ORDERABLES Final Res ult [facility] [address] [facility] [address] , [place] [address] * (ABNORMAL) CBC WITH DIFF (02/19/2025 6:45 AM EDT) Only the most recent of11 resultswithin the time period is included. WBC 6.6 3.7 - 10.3 x10(3)/mcL 02/19/2025 [...] 02/19/2025 8:03 AM EDT [facility] [place] Percent 5.9 % 02/19/2025 8:03 AM EDT [facility], [facility] Eos Percent 2.9 % 02/19/2025 8:03 AM EDT [facility] Baso Percent 0.5 % 02/19/2025 8:03 AM EDT [facility] Neut # 4.7 1.6 - 6.1 x10(3)/[facility] 02/19/2025 8:03 AM EDT [facility] Comment:Neutrophils equals s egs plus bands IMMGRAN# 0.0 0.0 - 0.1 x10(3)/[facility] 02/19/2025 8:[address] [facility] Comment:Automated count of m etamyelocytes, myelocytes and promyelocytes. An absolute IG <0.1 is reported as 0.0. Lymph # 1.2 1.2 - 3.9 x10(3)/[facility] 02/19/2025 8:03 AM EDT [facility] [place] # 0.4 0.3 - 0.9 x10(3)/[facility] 02/19/2025 8:03 AM EDT [facility] Eos# 0.2 0.0 - 0.5 x10(3)/[facility] 02/19/2025 8:03 AM EDT [facility] Baso # 0.0 0.0 - 0.1 x10(3)/[facility] 02/19/2025 8:[address] [facility] Blood VENOUS BLOOD / Unknown Venipuncture / Unknown 02/19/2025 6:45 AM EDT 02/19/2025 7:52 AM EDT us Nicola Figueroa MD HEMATOLOGY ORDERABLES F inal Result [facility] [address] [facility] [address] , [place] [address] * (ABNORMAL) GLUCOSE METER POC (02/18/2025 5:15 PM EDT) Only the most recent of84 resultswithin the time period is included. Glucose Meter POC 226(H) 70 - 100 mg/dL 02/18/2025 5:23 PM EDT [facility] Sample Type Capillary 02/18/2025 5:23 PM EDT [facility] Patient Status Non-Critical Patient 02/18/2025 5:23 PM EDT [facility] Blood BLOOD SPECIMEN / Unknown 02/18/2025 5:15 PM EDT 02/18/2025 5:23 PM EDT us Benoit Alvarez MD POINT OF CARE TEST ORDERABLES F inal Result [facility] [address] [facility] [place] [address] * XR CHEST AP PORTABLE (02/18/2025 3:18 PM EDT) Only the most recent of3 resultswithin the time period is included. Anatomical Region Laterality Modality Chest Radiographic Kiesha [...] DIAGNOSTIC IMAGING ORDERABLE S Final Result * EK EKG 12 LEAD (02/18/2025 11:36 AM EDT) Only the most recent of3 resultswithin the time period is included. Anatomical Region Laterality Modality Electrocardiogra phy 02/18/2025 12:0 0 PM EDT Impressions 02/19/2025 1:24 PM EDT [facility] Test Date: 2025-02-18 Pat Name: EVANGELIST NETTLES Department: DEPID Room: E3708 Gender: Female [employer]: [facility] : 1980 Requested By: DANYA Valencia Order Number: [id number] Reading MD: Cooper Wood MD Measurements Intervals [place] Rate: 92 P: 58 RI: 179 QRS: 54 QRSD: 102 T: 32 QT: 385 QTc: 476 Interpretive Statements SINUS RHYTHM Electronically Signed On 02-19-2025 13:24:34 EDT by Cooper Wood MD Narrative Procedure Note Cooper Wood MD - 02/19/2025 IMPRESSION [facility] Test Date: 2025-02-18 Pat Name: EVANGELIST BRANCH Department: DEPID Room: E3708 Gender: Female [employer]ier: [facility] : 1980 Requested By: DANYA Valencia Order Number: [id number] Reading MD: Cooper Wood MD Measurements Intervals [place] Rate: 92 P: 58 RI: 179 QRS: 54 QRSD: 102 T: 32 QT: 385 QTc: 476 Interpretive Statements SINUS RHYTHM Electronically Signed On 02-19-2025 13:24:34 EDT by Cooper Wood MD us Danya Rossi MD IMG ECG ORDERABLES Final Res ult * ESOPHAGOGASTRODUODENOSCOPY (EGD) (02/18/2025 11:18 AM EDT) [...] Danya Rossi MD Anesthesiologist Nory Gorman RN Math T[employer] Medications See Anesthesia Record. Preprocedure A history [...] ENDOSCOPY PROCEDURE ORDERABL ES Final Result * COLONOSCOPY (02/18/2025 11:18 AM EDT) Anatomical [...] Danya Rossi MD Anesthesiologist Nory Gorman RN [employer] T[employer] Medications See Anesthesia Record. Preprocedure A history [...] ENDOSCOPY PROCEDURE ORDERABL ES Final Result * INTRAOP AIRWAY PLACEMENT (02/18/2025 10:45 AM EDT) Narrative [facility] - 02/18/2025 10:45 AM EDT Danya [...] and Unchanged Insertion attempts: 1 Title: Anesthesiologist Danya Rossi MD RI ANESTHESIA Final Result [facility] [address] [place] [address] * HUMAN CHORIONIC GONADOTROPIN QUANTITATIVE (02/18/2025 7:05 AM EDT) Only the most recent of3 resultswithin the time period is included. Hcg Quant <1 <5 mIU/mL 02/18/2025 7:44 AM EDT [facility] Blood VENOUS BLOOD / Unknown Venipuncture / Unknown 02/18/2025 7:05 AM EDT 02/18/2025 7:16 AM EDT Narrative [facility] - [...] Rossi MD CHEMISTRY ORDERABLES Final R esult [facility] [address] [facility] [place], [place] [address] * (ABNORMAL) COMPREHENSIVE METABOLIC PANEL (02/18/2025 7:05 AM EDT) Only the most recent of7 resultswithin the time period is included. Sodium 138 136 - 145 mmol/L 02/18/2025 7:44 AM EDT [facility] Potassium 4.3 3.5 - 5.0 mmol/L 02/18/2025 7:44 AM EDT [facility] Chloride 103 98 - 107 mmol/L 02/18/2025 7:44 AM EDT [facility] Total CO2 24 22 - 29 mmol/L 02/18/2025 7:44 AM EDT [facility] Anion Gap 11 7 - 16 mmol/L 02/18/2025 7:44 AM EDT [facility] Calcium 8.5(L) 8.6 - 10.4 mg/dL 02/18/2025 7:44 AM EDT [facility] Glucose Lvl 166(H) 70 - 99 mg/dL 02/18/2025 7:44 AM EDT [facility] BUN 14 6 - 20 mg/dL 02/18/2025 7:44 AM EDT [facility] Creatinine 1.19 0.51 - 1.30 mg/dL 02/18/2025 7:44 AM EDT [facility] Albumin 3.4(L) 3.5 - 5.2 gm/dL 02/18/2025 7:44 AM EDT [facility] Total Protein 6.5 6.4 - 8.3 gm/dL 02/18/2025 7:44 AM EDT [facility] Bili Total 1.1 0.2 - 1.3 mg/dL 02/18/2025 7:44 AM EDT [facility] ALT 12 <=41 U/L 02/18/2025 7:44 AM EDT [facility] AST 20 <=40 U/L 02/18/2025 7:44 AM EDT [facility] Alk Phos 124(H) 36 - 123 U/L 02/18/2025 7:44 AM EDT [facility] eGFR (CKD-EPIcr 2020) 58(L) >=60 mL/min/1.7 3 m2 02/18/2025 7:44 AM EDT [facility] Comment:Estimated GFR was ca lculated using the CKD-EPIcr (2020) equation refit without race. The equation is recommended by the National Kidney Foundation - [place] [employer] of Nephrology Task Force. Blood VENOUS BLOOD / Unknown Venipuncture / Unknown 02/18/2025 7:05 AM EDT 02/18/2025 7:16 AM EDT Benoit Alvarez MD CHEMISTRY ORDERABLES Final Resu lt Performing Organization Address [facility] Phone Number [address] [address] * (ABNORMAL) HEPARIN ANTI-XA, UNF (02/18/2025 12:59 AM EDT) Only the most recent of14 resultswithin the time period is included. Heparin Level UNF 0.21(L) 0.30 - 0.70 IU/mL 02/18/2025 1:19 AM EDT [facility] Comment:The therapeutic rang e for heparinized patients monitored by the Heparin Lvl UF is 0.30-0.70 IU/mL. Blood VENOUS BLOOD / Unknown Venipuncture / Unknown 02/18/2025 12:59 AM EDT 02/18/2025 1:06 AM EDT Salazar Snow MD HEMATOLOGY ORDERABLES Final Resu lt Performing Organization Address [facility] de Phone Number [address] [address] * ECG AND WAVEFORMS - TELEMETRY (02/17/2025 7:13 AM EDT) Only the most recent of28 resultswithin the time period is included. Pathologist [facility] ECG INTERPRET NSR [facility] 02/17/2025 7:13 AM EDT Narrative [facility] - 02/17/2025 7:16 AM EDT ROUTINE (BS) RI 0.18 QRS 0.12 RR 0.87 QT 0.45 QTc 0.48 See Clinical Report link for waveform capture us Unknown Provider POINT OF CARE CARDIOLOGY Final Result [facility] [address] [place] [address] * (ABNORMAL) CBC (02/14/2025 6:54 AM EDT) Only the most recent of6 resultswithin the time period is included. [facility] WBC 6.8 3.7 - 10.3 x10(3)/mcL 02/14/2025 7:08 AM EDT [facility] RBC 3.96 3.90 - 5.20 x10(6)/mcL 02/14/2025 7:08 AM EDT [facility] Hgb 8.8(L) 11.2 - 15.7 g/dL 02/14/2025 7:08 AM EDT [facility] Hct 29.4(L) 34.0 - 45.0 % 02/14/2025 7:08 AM EDT [facility] MCV 74.2(L) 80.0 - 100.0 fL 02/14/2025 7:08 AM EDT [facility] MCH 22.2(L) 26.0 - 34.0 pg 02/14/2025 7:08 AM EDT [facility] MCHC 29.9(L) 30.7 - 35.5 g/dL 02/14/2025 7:08 AM EDT [facility] RDW 19.0(H) <=14.9 % 02/14/2025 7:08 AM EDT [facility] Platelet 236 155 - 369 x10(3)/mcL 02/14/2025 7:08 AM EDT [facility] MPV 10.7 8.8 - 12.5 fL 02/14/2025 7:08 AM EDT [facility] Blood VENOUS BLOOD / Unknown Venipuncture / Unknown 02/14/2025 6:54 AM EDT 02/14/2025 7:06 AM EDT Benoit Alvarez MD HEMATOLOGY ORDERABLES Final Res ult Performing Organization Address City/[facility]/ZIP Co de Phone Number [facility] [address] [place] [address] * FERRITIN (02/14/2025 6:54 AM EDT) Ferritin 50 30 - 150 ng/mL 02/14/2025 2:23 PM EDT [employer] Comment:The lower threshold of 30 is not statistically defined, nor internally validated. The threshold has been updated to more closely reflect a physiologic basis. Crystal Rosas, et al. Physiologically based serum ferritin thresholds for iron deficiency in children and non- women: a [place] National Health and Nutrition Examination Surveys (NHANES) serial cross-sectional study. Lancet Haematol 2021;8:e572-82. Blood VENOUS BLOOD / Unknown Venipuncture / Unknown 02/14/2025 6:54 AM EDT 02/14/2025 7:06 AM EDT Narrative [facility] - 02/14/2025 2:23 PM EDT Ingestion of tom doses of biotin (>5 mg/day) taken within 8 hours of drawing blood sample can interfere with this immunoassay test. Fernanda Atkins CUPOLA CHARGER INSULATION CHEMISTRY ORDERABLES Zayra l Result Performing Organization Address City/[facility]/ZIP Co de Phone Number [facility] [address] [facility] [address] [place] [address] [facility] , [place] [address] * SCANNED EKG (02/13/2025 11:28 AM EDT) Only the most recent of2 resultswithin the time period is included. Anatomical Region Laterality Modality Other 02/13/2025 11:2 8 AM EDT us Unknown Provider IMG ECG ORDERABLES Final Result * EC ECHOCARDIOGRAM 2D M MODE COMPLETE W CONTRAST (02/12/2025 12:39 PM EDT) LV DIASTOLIC PLAX [id number] cm PYRAMIS Ejection Fraction 60-65% PYRAMIS MITRAL [...] IMG ECHO ORDERABLES Final Resul t * (ABNORMAL) HEMOGLOBIN A1C (02/12/2025 9:35 AM EDT) Hgb A1C 7.6(H) 4.2 - 5.6 % 02/12/2025 9:20 PM EDT [place], [facility] Est. Avg Glucose 171 mg/dL 02/12/2025 9:20 PM EDT [facility] Blood VENOUS BLOOD / Unknown Venipuncture / Unknown 02/12/2025 9:35 AM EDT 02/12/2025 10:06 AM EDT Narrative [facility] - 02/12/2025 9:20 PM EDT REFERENCE RANGE: Normal: 4.0-5.6% Pre-diabetes: 5.7-6.4% Provisional diagnosis of diabetes: >6.4% Hgb F>10% and anything which shortens red cell survival, such as hemolytic anemia, or unstable hemoglobin variants such as HbSS, HbSC, or HbCC, will lower the HbA1c value associated with a given level of glycemic control. us Benoit Alvarez MD CHEMISTRY ORDERABLES Final Resu lt [facility] [address] , [place] [address] * CT CHEST WO CONTRAST (02/12/2025 7:49 [...] please contactthe office of the ordering clinician. Tali Costello DO IM CT ORDERABLES Final Result * (ABNORMAL) TROPONIN-T HIGH SENSITIVITY 2HR (02/12/2025 4:08 AM EDT) Only the most recent of2 resultswithin the time period is included. lz-tFzkdhpam-H 2HR 27(H) <14 ng/L 02/12/2025 4:27 AM EDT [facility] hs-cTnT 2Hr Delta from Baseline -4 <4 ng/L 02/12/2025 4:27 AM EDT [facility] Blood VENOUS BLOOD / Unknown Venipuncture / Unknown 02/12/2025 4:08 AM EDT 02/12/2025 4:11 AM EDT Narrative [facility] - 02/12/2025 4:27 AM EDT Ingestion of tom doses of biotin (>5 mg/day) taken within 8 hours of drawing blood sample can interfere with this immunoassay test. Tali Costello DO CHEMISTRY ORDERABLES Final Res ult Performing Organization Address [facility] Co de Phone Number [facility] [address] [facility] [place] [address] * (ABNORMAL) TROPONIN-T HIGH SENSITIVITY BASELINE W/ REFLEX (02/12/2025 2:21 AM EDT) Only the most recent of2 resultswithin the time period is included. ad-gPmsqgfnz-W 31(H) <14 ng/L 02/12/2025 2:47 AM EDT [facility] Blood VENOUS BLOOD / Unknown Venipuncture / Unknown 02/12/2025 2:21 AM EDT 02/12/2025 2:27 AM EDT Narrative [facility] - 02/12/2025 2:47 AM EDT Ingestion of tom doses of biotin (>5 mg/day) taken within 8 hours of drawing blood sample can interfere with this immunoassay test. Tali Costello DO CHEMISTRY ORDERABLES Final Res ult Performing Organization Address [facility] Co de Phone Number [facility] [address] [place] [address] * (ABNORMAL) BLOOD GAS, VENOUS (02/12/2025 2:21 AM EDT) Only the most recent of2 resultswithin the time period is included. pH Venous 7.38 7.32 - 7.42 pH 02/12/2025 2:30 AM EDT [facility] pCO2 Venous 42 41 - 51 mmHg 02/12/2025 2:30 AM EDT [facility] pO2 Venous 40 25 - 40 mmHg 02/12/2025 2:30 AM EDT [facility] Comment:Interpret with cauti on. Not recommended to evaluate patient's oxygenation status. Base Excess David -0.3 mmol/L 2:30 AM EDT [facility] Hco3 Venous 24.9 24.0 - 28.0 mmol/L 02/12/2025 2:30 AM EDT [facility] CO2 Total David 24(L) 25 - 29 mmol/L 02/12/2025 2:30 AM EDT [facility] O2 Sat. Venous 74.2(H) 40.0 - 70.0 % 02/12/2025 2:30 AM EDT [facility] Inspired O2 95 02/12/2025 2:30 AM EDT [facility] Blood VENOUS BLOOD / Unknown Venipuncture / Unknown 02/12/2025 2:21 AM EDT 02/12/2025 2:27 AM EDT us Tali Costello DO CHEMISTRY ORDERABLES Final Res ult Performing Organization Address [facility] de Phone Number [address] [address] * (ABNORMAL) NT PROBNP (02/12/2025 2:21 AM EDT) Only the most recent of2 resultswithin the time period is included. NT Pro-BNP 2,038(H) <=192 pg/mL 02/12/2025 4:06 AM EDT [facility] Blood VENOUS BLOOD / Unknown Venipuncture / Unknown 02/12/2025 2:21 AM EDT 02/12/2025 2:27 AM EDT Narrative [facility] - 02/12/2025 4:06 AM EDT An NT pro-BNP level less than 300 pg/mL in any patient, regardless of age, effectively rules out acute CHF with a 99% negative predictive value. Ingestion of tom doses of biotin (>5 mg/day) taken within 8 hours of drawing blood sample can interfere with this immunoassay test. Tali Costello DO CHEMISTRY ORDERABLES Final Res ult Performing Organization Address [facility] de Phone Number [address] [place] [address] * EXTRA LAVENDER (01/20/2025 7:35 AM EDT) Only the most recent of4 resultswithin the time period is included. Blood VENOUS BLOOD / Unknown Venipuncture / Unknown 01/20/2025 7:35 AM EDT 01/20/2025 8:33 AM EDT Tali Carmona MD HEMATOLOGY ORDERABLES Final Result Performing Organization Address [facility] de Phone Number [facility] [address] [place] [address] * EXTRA MINT GREEN LI (01/18/2025 6:25 AM EDT) Only the most recent of2 resultswithin the time period is included. Blood VENOUS BLOOD / Unknown Venipuncture / Unknown 01/18/2025 6:25 AM EDT 01/18/2025 6:45 AM EDT Tali Carmona MD CHEMISTRY ORDERABLES Final R esult Performing Organization Address [facility] Phone Number [facility] [address] [address] * VANCOMYCIN LEVEL AUC2 (01/17/2025 2:24 PM EDT) Only the most recent of3 resultswithin the time period is included. Vancomycin AUC2 34.8 mcg/mL 3:03 PM EDT [facility] Blood VENOUS BLOOD / Unknown Venipuncture / Unknown 01/17/2025 2:24 PM EDT 01/17/2025 2:43 PM EDT Harriet Godinez MD CHEMISTRY ORDERABLES Final Resul t Performing Organization Address [facility] de Phone Number [facility] [address] [address] * VANCOMYCIN LEVEL AUC1 (01/17/2025 7:20 AM EDT) Only the most recent of3 resultswithin the time period is included. [facility] Vancomycin AUC1 37.4 mcg/mL 7:43 AM EDT [facility] Blood VENOUS BLOOD / Unknown Venipuncture / Unknown 01/17/2025 7:20 AM EDT 01/17/2025 7:25 AM EDT Harriet Godinez MD CHEMISTRY ORDERABLES Final Resul t [facility] [address] [place] [address] * STAPHYLOCOCCUS AUREUS SCREEN (01/13/2025 5:36 PM EDT) [facility] Staph aureus PCR Not Detected Not Detected 01/14/2025 7:31 AM EDT [facility] MRSA PCR Not Detected Not Detected 01/14/2025 7:31 AM EDT [facility] Swab BOTH ANTERIOR NARES / Unknown 01/13/2025 5:36 PM EDT 01/14/2025 12:04 AM EDT Narrative [facility], [facility] - 01/14/2025 7:31 AM EDT Staphylococcus aureus target DNA sequence is not detected. This qualitative assay is intended for the detection of Staphylococcus aureus proprietary sequences for the staphylococcal protein A (spa) gene, the gene for methicillin resistance (mecA), and the staphylococcal cassette chromosome mec (SCCmec) inserted into the SA chromosomal attB site. This assay utilizes real time PCR on the [employer] GeneXpert Infinity, and its performance has been verified by the [facility]. A negative result does not rule [...] has been developed and validated by the [facility] laboratory. Detailed methodology is available upon request. us Harriet Godinez MD MICROBIOLOGY - GENERAL ORDERABLE S Final Result Performing Organization Address City/[facility] Co de Phone Number [facility] [address] [place] [address] , [place] [address] * BLOOD CULTURE (NO STAIN) (01/13/2025 9:59 AM EDT) Only the most recent of2 resultswithin the time period is included. Culture Result No Growth at 120 hours. BLOOD CULTURE (NO STAIN) 01/18/2025 4:00 PM EDT [facility] Blood VENOUS BLOOD / Unknown Venipuncture / Unknown 01/13/2025 9:59 AM EDT 01/13/2025 10:02 AM EDT Marie Yarbrough MD MICROBIOLOGY - GENERAL OR DERABLES Final Result Performing Organization Address [facility] Co de Phone Number [facility] [address] [place] [address] , [place] [address] * (ABNORMAL) PROCALCITONIN (01/13/2025 9:45 AM EDT) Procalcitonin 0.56(H) <=0.49 ng/mL 01/13/2025 10:30 AM EDT [facility] Blood VENOUS BLOOD / Unknown Venipuncture / Unknown 01/13/2025 9:45 AM EDT 01/13/2025 9:55 AM EDT Narrative [facility] - 01/13/2025 10:30 AM EDT [...] progression to severe sepsis and/or septic shock. Marie Yarbrough MD CHEMISTRY ORDERABLES Zayra valencia Result [facility] [address] [place] [address] * CT ANGIOGRAM PULMONARY W [...] contactthe office of the ordering clinician. us Marie Yarbrough MD IMG CT ORDERABLES Final R esult * [id number] A/B (01/13/2025 7:30 AM EDT) CORONAVIRUS [id number] Not Detected Not Detected 01/13/2025 8:51 AM EDT [facility] Influenza A DNA Not Detected Not Detected 01/13/2025 8:51 AM EDT [facility] Influenza B DNA Not Detected Not Detected 01/13/2025 8:51 AM EDT [facility] Swab BOTH ANTERIOR NARES / Unknown 01/13/2025 7:30 AM EDT 01/13/2025 7:30 AM EDT us Marie Yarbrough MD MICROBIOLOGY - GENERAL OR DERABLES Final Result [facility] [address] [place] [address], [place] [address] * LACTIC ACID (01/13/2025 7:25 AM EDT) Lactic Acid 1.5 0.5 - 1.9 mmol/L 01/13/2025 7:50 AM EDT [facility] Blood VENOUS BLOOD / Unknown Venipuncture / Unknown 01/13/2025 7:25 AM EDT 01/13/2025 7:30 AM EDT us Marie Yarbrough MD CHEMISTRY ORDERABLES Zayra valencia Result [facility] [address] [facility] [place] [address] * US NON-OB TRANSVAGINAL (01/01/2025 1:13 PM EDT) Anatomical Region Laterality Modality Ultrasound 01/01/2025 1:13 PM EDT Impressions 01/01/2025 1:30 PM EDT Unremarkable pelvic sonogram for age. - Note: Radiology results need to be interpreted within a comprehensive clinical context. If you have questions about the radiology report, please contact the office of the ordering clinician. Narrative 01/01/2025 1:30 PM EDT US NON-OB TRANSVAGINAL 01/01/2025 1:13 PM CLINICAL HISTORY: -abnormal uterine bleeding. menorrhagia.. COMPARISON: CT abdomen and pelvis December 15, 2019. PROCEDURE COMMENTS: Sonographic evaluation of the pelvis per ordered protocol with sales support representative images and tech notes for sent for review. FINDINGS: Uterus: 9.0 x 5.9 x 6.0 cm overall size. Endometrium: 9 mm thickness. RIGHT ovary: 2.0 x 1.9 x 1.7 cm. Normal appearance for age. LEFT ovary: 2.1 x 1.3 x 1.7 cm. Normal appearance for age. Cul-de-sac: No abnormal fluid or mass. Doppler flow: Normal color Doppler and spectral Doppler flow to the bilateral ovaries. Procedure Note Helio Villegas MD - 01/01/2025 US NON-OB TRANSVAGINAL 01/01/2025 1:13 PM CLINICAL HISTORY: -abnormal uterine bleeding. menorrhagia.. COMPARISON: CT abdomen and pelvis December 15, 2019. PROCEDURE COMMENTS: Sonographic evaluation of the pelvis per orderedprotocol with sales support representative images and tech notes for sent for review. FINDINGS: Uterus: 9.0 x 5.9 x 6.0 cm overall size. Endometrium: 9 mm thickness. RIGHT ovary: 2.0 x 1.9 x 1.7 cm. Normal appearance for age. LEFT ovary: 2.1 x 1.3 x 1.7 cm. Normal appearance for age. Cul-de-sac: No abnormal fluid or mass. Doppler flow: Normal color Doppler and spectral Doppler flow to thebilateral ovaries. IMPRESSION: Unremarkable pelvic sonogram for age. - Note: Radiology results need to be interpreted within a comprehensiveclinical context. If you have questions about the radiology report, please contactthe office of the ordering clinician. Sasha Norman DO [facility] US ORDERABLES Final Result * (ABNORMAL) ALBUMIN LEVEL (01/01/2025 7:15 AM EDT) Albumin 3.1(L) 3.5 - 5.2 gm/dL 01/01/2025 7:29 AM EDT [facility] Blood VENOUS BLOOD / Unknown Venipuncture / Unknown 01/01/2025 7:15 AM EDT 01/01/2025 7:15 AM EDT Catalina Verma MD CHEMISTRY ORDERABLES Final Re sult [facility] [address] [place] [address] * TSH REFLEX TO FT4 (01/01/2025 6:13 AM EDT) TSH Reflex 3.710 0.270 - 4.200 mcIU/mL 01/01/2025 9:05 AM EDT [facility] Actual Experience Blood VENOUS BLOOD / Unknown Venipuncture / Unknown 01/01/2025 6:13 AM EDT 01/01/2025 6:23 AM EDT Narrative [facility] - 01/01/2025 9:05 AM EDT Ingestion of tom doses of biotin (>5 mg/day) taken within 8 hours of drawing blood sample can interfere with this immunoassay test. Sasha Norman DO CHEMISTRY ORDERABLES Fi nal Result Performing Organization Address [facility] de Phone Number [facility] [email or web address] [address] , [place] [id number] * PROLACTIN LEVEL (01/01/2025 6:13 AM EDT) Prolactin 6.60 4.79 - 23.30 ng/mL 01/01/2025 9:02 AM EDT [facility] Blood VENOUS BLOOD / Unknown Venipuncture / Unknown 01/01/2025 6:13 AM EDT 01/01/2025 6:23 AM EDT Narrative [facility] - 01/01/2025 9:02 AM EDT Ingestion of tom doses of biotin (>5 mg/day) taken within 8 hours of drawing blood sample can interfere with this immunoassay test. Sasha Norman DO CHEMISTRY ORDERABLES Fi nal Result Performing Organization Address [facility] Phone Number [facility] [address] , [place] [address] * ESTRADIOL LEVEL (01/01/2025 6:13 AM EDT) Estradiol Lvl 65 pg/mL 01/01/2025 9:02 AM EDT [facility] Blood VENOUS BLOOD / Unknown Venipuncture / Unknown 01/01/2025 6:13 AM EDT 01/01/2025 6:23 AM EDT Narrative [facility] - 01/01/2025 9:02 AM EDT Follicular phase 12.4 - 233 pg/mL Ovulation phase 41.0 - 398 pg/mL Luteal Phase 22.3 - 341 pg/mL Postmenopause 5 - 138 pg/mL Adult Males 11.3 - 43.2 pg/mL Due to risk of cross reactivity, Estradiol levels should not be monitored by immunoassay in patients being treated with Fulvestrant (Faslodex). Falsely increased results of Estradiol may occur. Ingestion of tom doses of biotin (>5 mg/day) taken within 8 hours of drawing blood sample can interfere with this immunoassay test. Sasha Norman DO CHEMISTRY ORDERABLES Fi nal Result PREFERRED Actual Experience [address] [facility] , [place] [address] * (ABNORMAL) FACTOR V LEIDEN MUTATION-REF LAB (01/01/2025 6:13 AM EDT) FAC Specimen Whole Blood 01/07/2025 12:07 PM EDT [facility] Factor V Leiden (F5) R506Q Mut Heterozyg ous(A) 01/07/2025 12:07 PM EDT [facility] Comment: Indication for testing: Assess genetic risk for thrombosis. HETEROZYGOUS: One copy of the factor V Leiden variant, c.1601G>A; p.[id number], was detected. This is associated with activated protein C resistance and a four to eight fold increased risk for venous thrombosis in comparison to individuals without this variant. Genetic consultation is recommended. This result has been reviewed and approved by Latisha Kuhn M.D., Ph.D. BACKGROUND INFORMATION: Factor V Leiden (F5) R506Q Mutation CHARACTERISTICS: Venous thromboembolism (VTE) is multifactorial caused by a combination of genetic and environmental factors. The Factor V Leiden (FVL) variant is the most common cause of inherited VTEs, accounting for over 90 percent of activated protein C (APC) resistance. Because the FVL variant eliminates the APC cleavage site, factor V is inactivated slower, thus persisting longer in blood circulation, leading to more thrombin production. Other genetic risk factors for VTE include, male sex and variants in antithrombin, protein C, protein S, or factor XIII. Non-genetic risk factors include, age, smoking, prolonged immobilization, malignant neoplasms, surgery, , oral contraceptives, estrogen replacement therapy, tamoxifen and raloxifene therapy. INCIDENCE OF FACTOR V LEIDEN VARIANT: Approximately 5 percent of Caucasians, 2 percent of Hispanics, 1 percent of Americans and 0.5 percent of Asians are heterozygous; homozygosity occurs in 1 in 1500 Caucasians. INHERITANCE: Semi-dominant; both heterozygotes and homozygotes are at increased risk for VTE. PENETRANCE: Lifetime risk of VTE is 10 percent for heterozygotes and 80 percent of homozygotes. CAUSE: The pathogenic gain of function in the F5 gene variant c.1601G>A (p.Ril597Osw). Legacy nomenclature: R506Q (1691G>A) CLINICAL SENSITIVITY: 20-50 percent of individuals with an isolated VTE have the FVL variant. METHODOLOGY: Polymerase chain reaction and fluorescence monitoring. ANALYTICAL SENSITIVITY AND SPECIFICITY: 99 percent. LIMITATIONS: Diagnostic errors can occur due to rare sequence variations. F5 gene mutations, other than p.[id number], will not be detected. This test was developed and its performance characteristics determined by [facility]. It has not been cleared or approved by the [place] Food and Drug Administration. This test was performed in a CLIA certified laboratory and is intended for clinical purposes. Counseling and informed consent are recommended for genetic testing. Consent forms are available online. Performed By: [facility] [address] [place] [address] Parts Casting Machine Operator: Orville Quigley MD, PhD CLIA Number: [id number] Blood VENOUS BLOOD / Unknown Venipuncture / Unknown 01/01/2025 6:13 AM EDT 01/01/2025 6:24 AM EDT us Minesh Vera MD HEMATOLOGY ORDERABLES Final Re sult [facility] [address] [place] [address] * FOLLICLE STIMULATING HORMONE LEVEL (01/01/2025 6:13 AM EDT) FSH 5.48 mIU/mL 01/01/2025 9:02 AM EDT [facility] Actual Experience Comment: Suggested Reference Range (mIU/mL) Females Follicular Phase 3.5 - 12.5 Ovulation Phase 4.7 - 21.5 Luteal Phase 1.7 - 7.7 Postmenopause 25.8 - 134.8 Males 1.5 - 12.4 Blood VENOUS BLOOD / Unknown Venipuncture / Unknown 01/01/2025 6:13 AM EDT 01/01/2025 6:23 AM EDT Narrative [facility] Actual Experience - 01/01/2025 9:02 AM EDT Ingestion of tom doses of biotin (>5 mg/day) taken within 8 hours of drawing blood sample can interfere with this immunoassay test. Sasha Norman DO CHEMISTRY ORDERABLES Fi nal Result Performing Organization Address [facility] Co de Phone Number [facility] , [address] [place], [place] [id number] * MAGNESIUM LEVEL (12/31/2024 6:53 AM EDT) [facility] Magnesium 1.9 1.6 - 2.4 mg/dL 12/31/2024 7:26 AM EDT [facility] Blood VENOUS BLOOD / Unknown Venipuncture / Unknown 12/31/2024 6:53 AM EDT 12/31/2024 7:03 AM EDT Catalina Verma MD CHEMISTRY ORDERABLES Final Re sult Performing Organization Address [facility] de Phone Number [facility] [address] [place] [address] * [facility] LOWER EXTREMITY VENOUS RIGHT (12/30/2024 3:56 PM EDT) Anatomical Region Laterality Modality Vascular, Thigh, Leg Vascular Im aging 12/30/2024 3:36 PM EDT Impressions 12/30/2024 4:10 PM EDT Conclusions * No evidence of deep vein thrombosis identified in the right lower extremity. * There is evidence of acute occluding superficial venous thrombosis in the right sapheno-femoral junction and zones 1-7 of the greater saphenous vein. * No evidence of thrombosis is noted in the contralateral left common femoral vein. Narrative Procedure Note Blaze Sanchez MD - 12/30/2024 IMPRESSION Conclusions * No evidence of deep vein thrombosis identified in the right lower extremity. * There is evidence of acute occluding superficial venous thrombosis inthe right sapheno-femoral junction and zones 1-7 of the greater saphenousvein. * No evidence of thrombosis is noted in the contralateral left common femoral vein. Kay Dye APRN IMG VASCULAR ORDERABLES Final Result * LIPID PANEL REFLEX (08/31/2020 2:21 PM EST) Cholesterol 148 <200 mg/dL 08/31/2020 10:06 PM EST [facility] Comment: < 200 Desirable 200 - 239 Borderline High >= 240 High Triglyceride 109 <150 mg/dL 08/31/2020 10:06 PM EST [facility] Comment: < 150 Normal 150 - 199 Borderline High 200 - 499 High >= 500 Very High HDL 44 >=40 mg/dL 08/31/2020 10:06 PM EST [facility] Comment: > 60 Optimal 40 - 60 Acceptable < 40 Low LDL Calculated 82 <100 mg/dL 08/31/2020 10:06 PM EST [facility] Non-HDL-C Calculated 104 <=129 mg/dL 08/31/2020 10:06 PM EST [facility] Comment: <130 Desirable 130-159 Above Desirable 160-189 Borderline High 190-219 High >= 220 Very High Fasting Specimen? Yes None 021 10:06 PM EST [facility] Blood VENOUS BLOOD / Unknown Venipuncture / Unknown 08/31/2020 2:21 PM EST 08/31/2020 2:21 PM EST José Luis Cintron CHEMISTRY ORDERABLES Final Resu lt [facility], [facility] [address], [place] [address] from Last 3 Months or Most Recently Relevant to Health Maintenance Insurance [place] [address] [place] [address] [place] [address] [place] Advance Directives For more information, please contact: [phone] * Full Code (Latest Code Status on File) Date Activated Date Inactivated Comments 02/12/2025 4:32 AM 02/18/2025 11:20 PM * Full Code Date Activated Date Inactivated Comments 01/13/2025 4:02 PM 01/20/2025 8:00 PM * Full Code Date Activated Date Inactivated Comments 12/30/2024 6:15 PM 01/06/2025 10:52 AM * Full Code Date Activated Date Inactivated Comments 05/29/2024 9:15 AM 06/13/2024 6:00 PM * Full Code Date Activated Date Inactivated Comments 04/11/2024 9:38 PM 04/17/2024 10:48 PM Care Teams Senior Drupal Developer Relationship Specialty Start Date End Date Miguel Angel Ohara MD [address] [place] [address] PCP - General Family Medicine 04/13/24 Tali Carmona MD [address] [place] [place] [address] Consulting Physician Internal Medicine-Nephrology 08/24/20
--- OUTSIDE RECORDS SUMMARY | 2025-03-17 10:26 | XMS_ITS | Encounter Summary ---
Author Organization [place] [address] Care Team Providers Care Theatrical Dresser Name Role Phone Tali Carmona MD Unavailable [phone] Miguel Angel Ohara MD Primary Care Provider [phone] Encounter Details Date Type Department Care Team (Latest Contact Info) Description 01/21/2025 External Contact SEP Pulmonology [facility] 651 [facility] [address] [place] [address] Nicola Figueroa MD [address] [address] Morbid obesity (HCC) (Primary Dx); Class 3 severe obesity due to excess calories without serious comorbidity with body mass index (BMI) greater than or equal to 70 in adult; Tricompartment osteoarthritis of knees, bilateral; AURELIA (obstructive sleep apnea); Primary osteoarthritis involving multiple joints; Falls; Pneumonia of right lower lobe due to infectious organism Social History Tobacco Use Types Packs/Day Years Used Date Smoking Tobacco: Never Smokeless Tobacco: Never Alcohol Use Standard Drinks/Week Comments Never 0 (1 standard drink = 0.6 oz pur e alcohol) [facility] Utilities Answer Date Recorded In the past 12 months has [employer], gas, oil, or water [email or web address] threatened to shut off services in your [...] Date Recorded PHQ-2 Total Score 2 01/14/2025 [facility] - Occupational Stress Questionnaire Answer Date [...] Never true 05/2025 [facility] IP Transportation Answer D ate Recorded [...] Progress Notes * María Storey RMA - 01/21/2025 9:08 AM EDT Pt was seen at [facility] medical records in their system Admit date 01/20/25 documented in this encounter Plan of Treatment Not on file documented as of this encounter Visit Diagnoses Diagnosis Morbid obesity (HCC)- Primary Morbid obesity Class 3 severe obesity due to excess calories without serious comorbidity with body mass index (BMI) greater than or equal to 70 in adult Tricompartment osteoarthritis of knees, bilateral AURELIA (obstructive sleep apnea) Obstructive sleep apnea (adult) (pediatric) Primary osteoarthritis involving multiple joints Falls Unspecified fall Pneumonia of right lower lobe due to infectious organism documented in this encounter Additional Health Concerns Assessment Noted Time PHQ-9 Depression Total Score: 2 01/15/20 3:17 PM EDT PHQ-2 Depression Total Score: 2 01/15/20 3:17 PM EDT documented as of this encounter Care Teams Theatrical Dresser Relationship Specialty Start Date End Date Miguel Angel Ohara MD [address] [place] [address] PCP - General Family Medicine 04/13/24 Tali Carmona MD [address] [place] [address] Consulting Physician Internal Medicine-Nephrology 08/24/20 documented as of this encounter
--- OUTSIDE RECORDS SUMMARY | 2025-03-17 10:26 | XMS_ITS | Encounter Summary ---
Author [place] [address] Care Team Providers Care Production Lead Name Role Phone Tali Carmona MD Unavailable [phone] Miguel Angel Ohara MD Primary Care Provider [phone] Encounter Details Date Type Department Care Team (Latest Contact Info) Description 01/25/2025 External Contact SEP Pulmonology [facility] [address] [address] Dioni Alvarez MD [address] [address] Morbid obesity (HCC) (Primary Dx); Chronic respiratory failure with hypoxia (HCC); Chronic hypoxemic respiratory failure (HCC) Social History Tobacco Use Types Packs/Day Years Used Date Smoking Tobacco: Never Smokeless Tobacco: Never Alcohol Use Standard Drinks/Week Comments Never 0 (1 standard drink = 0.6 oz pur e alcohol) [facility] Utilities Answer Date Recorded In the past 12 months has [employer], gas, oil, or water [employer] threatened to shut off services in your [...] Date Recorded PHQ-2 Total Score 2 01/14/2025 [facility] - Occupational Stress Questionnaire Answer Date [...] money to get more. Never true 05/2025 [facility] IP Transportation [...] Progress Notes * Sangeeta Dhillon RMA - 01/25/2025 11:59 PM EDT Pt was seen at [facility] medical records in their system documented in this encounter Plan of Treatment Not on file documented as of this encounter Visit Diagnoses Diagnosis Morbid obesity (HCC)- Primary Morbid obesity Chronic respiratory failure with hypoxia (HCC) Chronic respiratory failure Chronic hypoxemic respiratory failure (HCC) Chronic respiratory failure documented in this encounter Additional Health Concerns Assessment Noted Time PHQ-9 Depression Total Score: 2 01/15/20 3:17 PM EDT PHQ-2 Depression Total Score: 2 01/15/20 3:17 PM EDT documented as of this encounter Care Teams Production Lead Relationship Specialty Start Date End Date Miguel Angel Ohara MD [address] [place] [address] PCP - General Family Medicine 04/13/24 Tali Carmona MD [address] [place] [address] Consulting Physician Internal Medicine-Nephrology 08/24/20 documented as of this encounter
--- OUTSIDE RECORDS SUMMARY | 2025-03-17 10:26 | XMS_ITS | Encounter Summary ---
Author Organization [place] [address] Care Team Providers Care Pai Gow Dealer Name Role Phone Tali Carmona MD Unavailable [phone] Miguel Angel Ohara MD Primary Care Provider [phone] Encounter Details Date Type Department Care Team (Late st Contact Info) Description 01/26/2025 Telephone [facility] [address] [facility] [address] [place] [address] Minesh Vera MD [address] [place], [place] [id number] Social History Tobacco Use Types Packs/Day Years Used Date Smoking Tobacco: Never Smokeless Tobacco: Never Alcohol Use Standard Drinks/Week Comments Never 0 (1 standard drink = 0.6 oz pur e alcohol) [facility] Utilities Answer Date Recorded In the past 12 months has [employer], gas, oil, or water company threatened [...] Date Recorded PHQ-2 Total Score 2 01/14/2025 [facility] Occupat ional Health - Occupational Stress [...] more. Never true 05/2025 [facility] IP Transportation Answer D ate Recorded In [...] encounter Miscellaneous Notes * Telephone Encounter - Trinidad Siegel, Clerical Staff - 01/26/2025 10:15 AM EDT Spoke with patient. She has been at [facility] for rehab and does not have transportation for visit on January 28. Rescheduled to February 18. * Telephone Encounter - Beckie Donovan Clerical Staff - 01/26/2025 9:16 AM EDT Left message for patient to call to move her appts up on Friday at Dr. Vera's request. documented in this encounter Plan of Treatment Not on file documented as of this encounter Visit Diagnoses Not on filedocumented in this encounter Additional Health Concerns Assessment Noted Time PHQ-9 Depression Total Score: 2 01/15/20 25 3:17 PM EDT PHQ-2 Depression Total Score: 2 01/15/20 25 3:17 PM EDT documented as of this encounter Care Teams Pai Gow Dealer Relationship Specialty Start Date End Date Miguel Angel Ohara MD [address] [place] [address] PCP - General Family Medicine 04/13/24 Tali Carmona MD [address] [place] [address] Consulting Physician Internal Medicine-Nephrology 08/24/20 documented as of this encounter
--- OUTSIDE RECORDS SUMMARY | 2025-03-17 10:27 | XMS_ITS | Encounter Summary ---
Author Organization [place] [address] Care Team Providers Care Cna Per Diem Name Role Phone Tali Carmona MD Unavailable [phone] Miguel Angel Ohara MD Primary Care Provider Encounter Details Date Type Department Care Team (Late st Contact Info) Description 01/10/2025 Telephone [facility] [address] [facility] [address] [place] [address] Minesh Vera MD [address] [place], [place] [phone] Social History Tobacco Use Types Packs/Day Years Used Date Smoking Tobacco: Never Smokeless Tobacco: Never Alcohol Use Standard Drinks/Week Comments Never 0 (1 standard drink = 0.6 oz pur e alcohol) [facility] Utilities Answer Date Recorded In the past 12 months has [employer], gas, oil, or water company threatened [...] Date Recorded PHQ-2 Total Score 2 01/14/2025 [facility] of Occupat ional Health - Occupational Stress [...] Never true 05/2025 [facility] IP Transportation Answer D ate [...] Author 0 01/13/2025 3:00 PM EDT Lesly Ovalle, YENNY * Drug Screening Score Answer Date of [...] 4-10 0 01/13/2025 3:00 PM EDT Lesly Chambers, YENNY * Is the person deaf or does [...] of Assessment Author Yes 01/06/2025 12:07 PM LATOSHAT Elysia Stacy RN * Because of a physical, mental or emotional condition, does this person have difficulty doing errands alone such as visiting a doctor's office or shopping? Answer Date of Assessment Author Yes 01/06/2025 12:07 PM EDT Elysia Stacy RN * Question Answer Date of Assessment Author Little interest or pleasure in doing things 1 01/14/2025 3:17 PM EDT Virginia Jackson MS W Feeling down, depressed, or hopeless 1 01/04 3:17 PM EDT Virginia Jackson, STOVE FITTER PHQ-2 Total Score 2 01/14/2025 3:17 PM EDT Virginia Jackson STOVE FITTER * PHQ-9 Total Score Answer Date of Assessment Author 2 01/14/2025 3:17 PM EDT Criss Jackson STOVE FITTER * PHQ-2 Total Score Answer Date of Assessment Author 2 01/14/2025 3:17 PM EDT Criss Jackson STOVE FITTER * Suicide Severity Rating Answer Date of Assessment Author No Risk 01/13/2025 7:04 AM EDT Verna Jessica, YENNY * [place] Suicide Severity Rating Scale (Q shift for moderate and high) Question Answer Date of Assessment Author 1. In the past month, have you wished you were or wished you could go to sleep and not wake up? 0 01/13/2025 7:04 AM EDT Verna Peraza, YENNY 2. In the past month, have you actually had any thoughts of killing yourself? (If no, skip to question 6) 0 01/13/2025 7:04 AM EDT Deborah Peraza, YENNY 6. Have you ever done anything, started to do anything, or prepared to do anything to end your life? 0 01/13/2025 7:04 AM EDT Verna Arnold RN documented as of this encounter Mental Status * Because of a physical, mental or emotional condition, does this person have serious difficulty concentrating, remembering or making decisions? Answer Entry Date Author No 01/06/2025 12:07 PM EDT Elysia Stacy RN documented in this encounter Miscellaneous Notes * Telephone Encounter - Trinidad Siegel, Clerical Staff - 01/10/2025 2:29 PM EDT Left voice mail message for patient to call back to schedule * Telephone Encounter - Trinidad Siegel Clerical Staff - 01/10/2025 2:29 PM EDT ----- Message from Nurse Arias sent at 01/06/2025 3:30 PM EDT ----- Please see message below to sched patient. Thanks. Juana ----- Message ----- From: Francia Murcia APRN Sent: 01/06/2025 3:16 PM EDT To: Juana Lo RN; Millie Dukes RN Hospital follow up - FVL labs still pending at time of discharge. Chuy saw inpatient. Probably just needs FU in a few weeks to discuss results and plan. Not urgent. Discharged 01/06. documented in this encounter Plan of Treatment Not on file documented as of this encounter Visit Diagnoses Not on filedocumented in this encounter Additional Health Concerns Infection Onset Date Last Indicated Resolved Time R/O COVID-19 01/13/2025 01/13/2025 01/13/2025 8:51 AM EDT Assessment Noted Time PHQ-9 Depression Total Score: 2 12/31/19 25 6:49 PM EDT PHQ-2 Depression Total Score: 2 12/31/19 25 6:49 PM EDT documented as of this encounter Care Teams Cna Per Diem Relationship Specialty Start Date End Date Miguel Angel Ohara MD [address] [facility] [address] [place] [address] PCP - General Family Medicine 04/13/24 Tali Carmona MD [address] [facility] [address] [place] [address] Consulting Physician Internal Medicine-Nephrology 08/24/20 documented as of this encounter
== END 2025-03-16 23:59 | disposition home or self-care (01) ==
LOC: LAB.DROPOF 03-17 10:11
PROVIDERS: PCP Nurse Practitioner; Visit Provider Nurse Practitioner
DX: E03.9 Hypothyroidism, unspecified (principal); Z79.01 Long term (current) use of anticoagulants; D64.9 Anemia, unspecified; E11.9 Type 2 diabetes mellitus without complications; E55.9 Vitamin D deficiency, unspecified
CPT/HCPCS: 80053; 82306; 83036; 84439; 84443; 85025; 85610